=== PATIENT | male | born 1955 | race Caucasian/White ===

== ENCOUNTER 2018-01-19 08:00 | Outpatient (RCR) | payer MEDICARE, OTHER, SELFPAY | END 2018-02-18 | LOC: CR 01-25 08:00 | PROVIDERS: PCP Nurse Practitioner Family; Visit Provider Family Medicine | DX: I50.9 Heart failure, unspecified (principal); Z51.89 Encounter for other specified aftercare | CPT/HCPCS: 93797 ×2; 0296T; 36415; 74177; 93225; 82565; 93306; J3490; S9472 ==

== ENCOUNTER 2018-08-04 09:34 | Observation (INO) | payer MEDICARE, SELFPAY ==
[2018-08-04] VITALS (8 sets, daily range): BP systolic 102–130; BP diastolic 67–95; PULSE 87–106; RESP 16–18; TEMP 36.3–37.4; O2SAT 95–99
--- NOTE | 2018-08-04 10:08 | W.ED.GENAD ---
Discharge Plan Discharge Details Chief Complaint: Vascular Primary Care Provider: Pricila Geller ED Provider: Micky Glynn Home Meds and New Rx's Prescriptions: No Action losartan 50 MG tablet 50 mg PO QAM Qty: 90 RF: 3 torsemide [Demadex] 20 MG tablet 30 mg PO DAILY Qty: 120 RF: 3 spironolactone 25 MG tablet 25 mg PO DAILY Qty: 90 RF: 3 potassium chloride [Klor-Con M10] 10 MEQ tablet,ER particles/crystals 10 meq PO DAILY Qty: 90 RF: 3 warfarin [Coumadin] 7.5 MG tablet 7.5 mg PO QPM RF: 0 aspirin [Aspirin Low-Strength] 81 MG tablet,chewable 81 mg PO DAILY RF: 0 metoprolol tartrate 25 MG tablet 75 mg PO HS RF: 0 metoprolol succinate 50 MG tablet extended release 24 hr 175 mg PO DAILY AM RF: 0 Medical Decision Making MDM Narrative Medical decision making narrative: 63-year-old male presents from home complaining of right medial thigh pain and discomfort similar to previous hematoma. He is afebrile and well-appearing. He does have ecchymosis that he did not notice overlying the right medial thigh. He is at risk for supratherapeutic INR and spontaneous bleeding including within the retroperitoneum. He had IV access established, was referred for laboratory testing with INR. Patient had CT imaging performed through the lower abdomen and proximal thigh. Diagnostic studies reveal unremarkable CBC with white count 4 and hematocrit 40. PT of 2.7. Patient's BUN is 24 creatinine 1.5. Imaging studies reveal a right psoas hematoma. It is noted patient recently had an INR 3.8, 2.7 today. He has had a history of previous femoral hematoma with compression and femoral nerve injury. His current psoas hematoma does not appear to have active bleeding or blush on contrast infused this, he would be at risk for compressive symptoms along the iliacus. I did discuss the case with Dr. Regalado, on-call for general surgery, she agrees with admission, observation, serial hematocrits. Given that there is no active bleeding, no indication for intervention at this time ECG Data Attestation: I personally reviewed and interpreted this ECG (s) as follows: Interpretation: Normal sinus rhythm, rate of 90, left bundle branch block pattern with repolarization abnormalities that are discordant with QRS HPI - General Adult General Mode of arrival: ambulatory. Date/Time Provider Initiated Documentation: 08/04/18 09:52. Limitations to Documentation: no limitations. Information obtained by: patient. History of Present Illness 63 year old M presents to the emergency department with the chief complaint of R thigh pain, described as moderate, Quality is described as constant, and is localized to the right. Patient extremity and abdomen. Patient started experiencing this hour(s) and it has been constant. No relieving factors improve symptom(s), No exacerbating factors reported . Patient notes no other symptoms.. HPI Narrative: This is a 63-year-old male with a history of atrial fibrillation and congestive heart failure who is on warfarin. He states that he has had a deep thigh hematoma in the past with elevated INR levels. He states he now has the gradual onset last night of dull, achy, right proximal thigh pain similar to previous hematoma. He denies any trauma. Has not had any weakness. He denies any nausea or vomiting Related Data Home Medications Medication Instructions Recorded Confirmed aspirin [Aspirin Low-Strength] 81 mg PO DAILY 09/22/17 04/22/18 warfarin [Coumadin] 7.5 mg PO QPM 09/22/17 04/22/18 metoprolol succinate 175 mg PO DAILY AM 11/30/17 04/22/18 metoprolol tartrate 75 mg PO HS 11/30/17 04/22/18 Previous Rx's Medication Instructions Recorded losartan 50 mg PO QAM #90 tab 01/11/18 potassium chloride [Klor-Con M10] 10 meq PO DAILY #90 tab 01/11/18 spironolactone 25 mg PO DAILY #90 tab 01/11/18 torsemide [Demadex] 30 mg PO DAILY #120 tab 01/11/18 Allergies Allergy/AdvReac Type Severity Reaction Status Date / Time No Known Allergies Allergy Unverified 04/22/18 11:57 General Stated Complaint: Vascular SELVIN: 3 Review of Systems Review of Systems 7 systems reviewed and otherwise negative [facility] Social History Smoking/Tobacco Use Status: Never Exam Narrative Exam Narrative: GEN: awake, alert, oriented 3. Pleasant, well groomed, interactive. HEAD: Normocephalic, atraumatic ENT: Mucous membranes moist, oropharynx unremarkable, External ear exam unremarkable EYES: PERRL, EOMI NECK: Full ROM, no KIMBER, no menigismus CHEST/RESP: Nontender, clear to auscultation bilateral, no wheeze/rhonchi/rales CARDIOVASCULAR: RRR, no murmur, rub trena. 2+ Rad pulse bilateral ABDOMEN: Soft, nontender, no mass. +Bowel sounds EXT: Full ROM, no edema, no rash. There is right proximal medial thigh ecchymosis measuring approximately 4 x 5 cm, no mass appreciated. Palpable femoral pulse bilaterally Neuro: Grossly normal neurologic exam, conversant, interactive. Psych: Speech fluent, thoughts congruent, affect normal Course Vital Signs Temperature 36.9 C 08/04/18 09:42 Pulse 94 H 08/04/18 09:42 Respiratory Rate 16 08/04/18 09:42 Blood Pressure 126/86 08/04/18 09:42 Pulse Oximetry 99 08/04/18 09:42 Temperature 36.9 C 08/04/18 09:42 Pulse 94 H 08/04/18 09:42 Respiratory Rate 16 08/04/18 09:55 Blood Pressure 126/86 08/04/18 09:42 Pulse Oximetry 99 08/04/18 09:42
[2018-08-04] MEDS: Normal Saline Flush 10 ML SYR IVP (10:10)
[2018-08-04] MEDS: Normal Saline 1,000 ML 125 ML IV (10:10)
--- NOTE | 2018-08-04 10:14 | ED.GENADUL_ITS ---
Discharge Plan Discharge Details Chief Complaint: Vascular Primary Care Provider: Pricila Geller ED Provider: Micky Glynn Home Meds and New Rx's Prescriptions: No Action losartan 50 MG tablet 50 mg PO QAM Qty: 90 RF: 3 torsemide [Demadex] 20 MG tablet 30 mg PO DAILY Qty: 120 RF: 3 spironolactone 25 MG tablet 25 mg PO DAILY Qty: 90 RF: 3 potassium chloride [Klor-Con M10] 10 MEQ tablet,ER particles/crystals 10 meq PO DAILY Qty: 90 RF: 3 warfarin [Coumadin] 7.5 MG tablet 7.5 mg PO QPM RF: 0 aspirin [Aspirin Low-Strength] 81 MG tablet,chewable 81 mg PO DAILY RF: 0 metoprolol tartrate 25 MG tablet 75 mg PO HS RF: 0 metoprolol succinate 50 MG tablet extended release 24 hr 175 mg PO DAILY AM RF: 0 Medical Decision Making MDM Narrative Medical decision making narrative: 63-year-old male presents from home complaining of right medial thigh pain and discomfort similar to previous hematoma. He is afebrile and well-appearing. He does have ecchymosis that he did not notice overlying the right medial thigh. He is at risk for supratherapeutic INR and spontaneous bleeding including within the retroperitoneum. He had IV access established, was referred for laboratory testing with INR. Patient had CT imaging performed through the lower abdomen and proximal thigh. Diagnostic studies reveal unremarkable CBC with white count 4 and hematocrit 40. PT of 2.7. Patient's BUN is 24 creatinine 1.5. Imaging studies reveal a right psoas hematoma. It is noted patient recently had an INR 3.8, 2.7 today. He has had a history of previous femoral hematoma with compression and femoral nerve injury. His current psoas hematoma does not appear to have active bleeding or blush on contrast infused this, he would be at risk for compressive symptoms along the iliacus. I did discuss the case with Dr. Regalado, on-call for general surgery, she agrees with admission, observation, serial hematocrits. Given that there is no active bleeding, no indication for intervention at this time ECG Data Attestation: I personally reviewed and interpreted this ECG (s) as follows: Interpretation: Normal sinus rhythm, rate of 90, left bundle branch block pattern with repolarization abnormalities that are discordant with QRS HPI - General Adult General Mode of arrival: ambulatory . Date/Time Provider Initiated Documentation: 08/04/18 09:52 . Limitations to Documentation: no limitations . Information obtained by: patient . History of Present Illness 63 year old M presents to the emergency department with the chief complaint of R thigh pain, described as moderate, Quality is described as constant, and is localized to the right. Patient extremity and abdomen. Patient started experiencing this hour(s) and it has been constant. No relieving factors improve symptom(s), No exacerbating factors reported . Patient notes no other symptoms.. HPI Narrative: This is a 63-year-old male with a history of atrial fibrillation and congestive heart failure who is on warfarin. He states that he has had a deep thigh hematoma in the past with elevated INR levels. He states he now has the gradual onset last night of dull, achy, right proximal thigh pain similar to previous hematoma. He denies any trauma. Has not had any weakness. He denies any nausea or vomiting Related Data Home Medications Medication Instructions Recorded Confirmed aspirin [Aspirin Low-Strength] 81 mg PO DAILY 09/22/17 04/22/18 warfarin [Coumadin] 7.5 mg PO QPM 09/22/17 04/22/18 metoprolol succinate 175 mg PO DAILY AM 11/30/17 04/22/18 metoprolol tartrate 75 mg PO HS 11/30/17 04/22/18 Previous Rx's Medication Instructions Recorded losartan 50 mg PO QAM #90 tab 01/11/18 potassium chloride [Klor-Con M10] 10 meq PO DAILY #90 tab 01/11/18 spironolactone 25 mg PO DAILY #90 tab 01/11/18 torsemide [Demadex] 30 mg PO DAILY #120 tab 01/11/18 Allergies Allergy/AdvReac Type Severity Reaction Status Date / Time No Known Allergies Allergy Unverified 04/22/18 11:57 General Stated Complaint: Vascular SELVIN: 3 Review of Systems Review of Systems 7 systems reviewed and otherwise negative [facility] Social History Smoking/Tobacco Use Status: Never Exam Narrative Exam Narrative: GEN: awake, alert, oriented 3. Pleasant, well groomed, interactive. HEAD: Normocephalic, atraumatic ENT: Mucous membranes moist, oropharynx unremarkable, External ear exam unremarkable EYES: PERRL, EOMI NECK: Full ROM, no KIMBER, no menigismus CHEST/RESP: Nontender, clear to auscultation bilateral, no wheeze/rhonchi/rales CARDIOVASCULAR: RRR, no murmur, rub trena. 2+ Rad pulse bilateral ABDOMEN: Soft, nontender, no mass. +Bowel sounds EXT: Full ROM, no edema, no rash. There is right proximal medial thigh ecchymosis measuring approximately 4 x 5 cm, no mass appreciated. Palpable femoral pulse bilaterally Neuro: Grossly normal neurologic exam, conversant, interactive. Psych: Speech fluent, thoughts congruent, affect normal Course Vital Signs Temperature 36.9 C 08/04/18 09:42 Pulse 94 H 08/04/18 09:42 Respiratory Rate 16 08/04/18 09:42 Blood Pressure 126/86 08/04/18 09:42 Pulse Oximetry 99 08/04/18 09:42 Temperature 36.9 C 08/04/18 09:42 Pulse 94 H 08/04/18 09:42 Respiratory Rate 16 08/04/18 09:55 Blood Pressure 126/86 08/04/18 09:42 Pulse Oximetry 99 08/04/18 09:42
[2018-08-04 10:21] LABS: Abs Immature Grans 0.01 k/cumm (0.0-0.09); Absolute Basophil Count 0.03 k/cumm (0.0-0.2); Absolute Eosinophil Count 0.04 k/cumm (0.0-0.7); Absolute Lymphocyte Count 0.53 k/cumm (1.2-3.4); Absolute Monocyte Count 0.38 k/cumm (0.11-0.7); Absolute Neutrophil Count 3.77 k/cumm (1.2-6.7); Basophils % 0.6; Eosinophils % 0.8; HCT 40.5 % (40.0-50.0); HGB 13.5 g/dL (13.5-17.5); Immature Grans % 0.2; Lymphocytes % 11.1; Mean Corp. HGB Concentration 33.3 g/dL (32.0-36.0); Mean Corpuscular Hemoglobin 31.2 pg (27.0-33.0); Mean Corpuscular Volume 93.5 fL (80-95); Mean Platelet Volume 10.3 fL (8.0-11.0); Neutrophils % 79.3; Platelet Count 154 x1000/uL (130-400); RBC 4.33 m/cumm (4.50-6.00); RBC Distribution Width 13.5 % (11.8-14.1); White Blood Cell Count 4.76 k/cumm (4.4-10.8)
[2018-08-04 10:41] LABS: ALT 46 U/L (12-78); AST 30 U/L (15-37); Albumin 3.5 g/dL (3.4-5.0); Alkaline Phosphatase 49 U/L (46-116); Anion Gap 7.5 mmol/L (3-11); BUN 24 mg/dL (7-18); Bilirubin, Total 0.7 mg/dL (0.2-1.0); CO2 28.5 mmol/L (21.0-32.0); CREATININE 1.45 mg/dL (0.70-1.30); Calcium 8.5 mg/dL (8.5-10.1); Chloride 103 mmol/L (98-107); Estimated GFR 48.84 (mL/min/1.73m2); Glucose 130 mg/dL (70-100); Potassium 4.2 mmol/L (3.5-5.1); Sodium 139 mmol/L (136-145); Total Protein 7.6 g/dL (6.4-8.2)
[2018-08-04 11:22] LABS: INR 2.7 (1.0-3.5); Prothrombin Time 25.6 sec (9.3-10.8)
--- NOTE | 2018-08-04 12:09 | DI.CT_ITS ---
SYMPTOMS/DIAGNOSIS: RT GROIN AND RT THIGH PAIN SIMILAR TO PREVIOUS HEMATOMA, ON WARFARIN CT OF THE ABDOMEN AND PELVIS AND UPPER THIGHS: Comparison is made with [id number]. Images were performed from the lung bases through the distal thighs after IV contrast. There is enlargement of the distal right psoas muscle consistent with a hematoma. There is a right hip prosthesis which creates artifact. N acetabular screws extends anteriorly through the cortex, projecting into the right psoas muscle. This appears unchanged from the prior exam. No hematoma is seen extending into the thigh. There is underlying asymmetry of the psoas muscles as seen on the previous exam which is likely secondary to scoliosis and degenerative changes. Marked left atrial enlargement and valve prostheses as well as ventricular enlargement are again noted. The lung bases show scarring. The liver, gallbladder, spleen, pancreas and adrenals are unremarkable. Renal cysts are noted. There is no hydronephrosis. There is a nonobstructing stone at the lower pole of the left kidney. The prostate is mildly enlarged. The bladder is unremarkable. There is mild diverticulosis but no evidence of diverticulitis. There is increased stool in the cecum. IMPRESSION: Right psoas hematoma. No extension into the upper thigh. No evidence of active bleeding.
[2018-08-04] MEDS: Omnipaque 350 MG/ML 100 ML BTL IJ (12:11)
--- NOTE | 2018-08-04 16:38 | W.PM.HP.N ---
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 He has had a hematoma of the right thigh in the past and felt similar pain at that time. He recalls that his INR was high last week at 3.8. He reports that it is difficult to ambulate due to right thigh pain. He denies any other concerns. No chest pain/pressure, palpitations, SOB, cough, wheeze, no abdominal pain, nausea, vomiting, no peripheral edema. He does have a history of a CVA (09/08/17) with mild residual weakness to his left hand. In the emergency department his workup included unremarkable CBC with white count 4 and hematocrit 40. PT of 2.7. Patient's BUN is 24 creatinine 1.5. Imaging studies reveal a right psoas hematoma. He does not appear to have active bleeding on CT scan. ED attending discussed case with Dr. Regalado, general surgery, she agrees with admission, observation, serial hematocrits. Given that there is no active bleeding, no indication for intervention at this time. He is admitted to the med/surg floor for observation and management. Review of Systems Review of Systems [facility] Social History Smoking/Tobacco Use Status: Never Meds Home Medications Medication Instructions Recorded Confirmed Type metoprolol succinate 175 mg PO DAILY AM 11/30/17 08/04/18 History metoprolol tartrate 75 mg PO HS 11/30/17 08/04/18 History Allergies Allergy/AdvReac Type Severity Reaction Status Date / Time No Known Allergies Allergy Unverified 08/04/18 12:44 Exam Const General: Orientation: [facility] Head: Eyes Conjunctivae: Sclera: Pupils: Neck Neck: Resp Effort & Inspection: Auscultation: GI Inspection: Palpation: Auscultation: Back/Spine/Pelvis Back: Extrem Right lower extremity: Results Labs : 08/05/18 06:50 08/05/18 06:50 Laboratory Results - last 24 hr 08/04/18 08/04/18 08/04/18 10:00 10:00 10:00 WBC 4.76 RBC 4.33 L Hgb 13.5 Hct 40.5 MCV 93.5 MCH 31.2 MCHC 33.3 RDW 13.5 Plt Count 154 MPV 10.3 Immature Gran % 0.2 Neutrophils % 79.3 Lymphocytes % 11.1 Monocytes % 8.0 Eosinophils % 0.8 Basophils % 0.6 Absolute Neutrophils 3.77 Absolute Lymphocytes 0.53 L Absolute Monocytes 0.38 Absolute Eosinophils 0.04 Absolute Basophils 0.03 PT 25.6 H INR 2.7 Sodium 139 Potassium 4.2 Chloride 103 Carbon Dioxide 28.5 Anion Gap 7.5 BUN 24 H Creatinine 1.45 H Estimated GFR/1.73 m2 48.84 Glucose 130 H Calcium 8.5 Total Bilirubin 0.7 AST 30 ALT 46 Alkaline Phosphatase 49 Total Protein 7.6 Albumin 3.5 Documented by User: Jason Escobedo MD 08/07/18 10:24 PFS Social History Smoking/Tobacco Use Status: Never Meds Home Medications Medication Instructions Recorded Confirmed Type metoprolol succinate 175 mg PO DAILY AM 11/30/17 08/04/18 History metoprolol tartrate 75 mg PO HS 11/30/17 08/04/18 History Allergies Allergy/AdvReac Type Severity Reaction Status Date / Time No Known Allergies Allergy Unverified 08/04/18 12:44 Results Labs : 08/05/18 06:50 08/05/18 06:50
--- NOTE | 2018-08-04 16:47 | HPE_ITS ---
Addendum entered and electronically signed by Priti Powell NP 08/04/18 17:42 : Past medical history: History of hematoma right thigh Mitral valve replacement, bovine Aortic valve replacement, porcine CHF CVA 08/2017 Atrial fibrillation Cardiac exam: HR irregular with murmurs noted across precordium. Family history: Mother: at 83, Hx COPD Father: at 84 of aneurysm, hypertension Brother: war with PTSD. 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 He has had a hematoma of the right thigh in the past and felt similar pain at that time. He recalls that his INR was high last week at 3.8. He reports that it is difficult to ambulate due to right thigh pain. He denies any other concerns. No chest pain/pressure, palpitations, SOB, cough, wheeze, no abdominal pain, nausea, vomiting, no peripheral edema. He does have a history of a CVA (09/08/17) with mild residual weakness to his left hand. In the emergency department his workup included unremarkable CBC with white count 4 and hematocrit 40. PT of 2.7. Patient's BUN is 24 creatinine 1.5. Imaging studies reveal a right psoas hematoma. He does not appear to have active bleeding on CT scan. ED attending discussed case with Dr. Regalado, general surgery, she agrees with admission, observation, serial hematocrits. Given that there is no active bleeding, no indication for intervention at this time. He is admitted to the med/surg floor for observation and management. Review of Systems Review of Systems [facility] Social History Smoking/Tobacco Use Status: Never Meds Home Medications Medication Instructions Recorded Confirmed Type metoprolol succinate 175 mg PO DAILY AM 11/30/17 08/04/18 History metoprolol tartrate 75 mg PO HS 11/30/17 08/04/18 History Allergies Allergy/AdvReac Type Severity Reaction Status Date / Time No Known Allergies Allergy Unverified 08/04/18 12:44 Exam Const General: Orientation: [facility] Head: Eyes Conjunctivae: Sclera: Pupils: Neck Neck: Resp Effort & Inspection: Auscultation: GI Inspection: Palpation: Auscultation: Back/Spine/Pelvis Back: Extrem Right lower extremity: Results Labs : 08/05/18 06:50 08/05/18 06:50 Laboratory Results - last 24 hr 08/04/18 08/04/18 08/04/18 10:00 10:00 10:00 WBC 4.76 RBC 4.33 L Hgb 13.5 Hct 40.5 MCV 93.5 MCH 31.2 MCHC 33.3 RDW 13.5 Plt Count 154 MPV 10.3 Immature Gran % 0.2 Neutrophils % 79.3 Lymphocytes % 11.1 Monocytes % 8.0 Eosinophils % 0.8 Basophils % 0.6 Absolute Neutrophils 3.77 Absolute Lymphocytes 0.53 L Absolute Monocytes 0.38 Absolute Eosinophils 0.04 Absolute Basophils 0.03 PT 25.6 H INR 2.7 Sodium 139 Potassium 4.2 Chloride 103 Carbon Dioxide 28.5 Anion Gap 7.5 BUN 24 H Creatinine 1.45 H Estimated GFR/1.73 m2 48.84 Glucose 130 H Calcium 8.5 Total Bilirubin 0.7 AST 30 ALT 46 Alkaline Phosphatase 49 Total Protein 7.6 Albumin 3.5 Documented by User: Jason Escobedo MD 08/07/18 10:24 [facility] Social History Smoking/Tobacco Use Status: Never Meds Home Medications Medication Instructions Recorded Confirmed Type metoprolol succinate 175 mg PO DAILY AM 11/30/17 08/04/18 History metoprolol tartrate 75 mg PO HS 11/30/17 08/04/18 History Allergies Allergy/AdvReac Type Severity Reaction Status Date / Time No Known Allergies Allergy Unverified 08/04/18 12:44 Results Labs : 08/05/18 06:50 08/05/18 06:50
[2018-08-04 18:25] LABS: HCT 39.9 % (40.0-50.0); HGB 13.2 g/dL (13.5-17.5)
[2018-08-04] MEDS: Metoprolol 25 MG TAB 75 MG PO (21:18)
[2018-08-04] MEDS: Acetaminophen 325 MG TAB PO (23:33)
[2018-08-05 00:08] VITALS: BP 150/91; PULSE 63; RESP 19; TEMP 36.5; O2SAT 98
[2018-08-05] MEDS: Metoprolol CR 50 MG TABCR 175 MG PO (05:47)
[2018-08-05] MEDS: Normal Saline Flush 10 ML SYR IVP (05:47)
[2018-08-05 07:20] VITALS: BP 149/79; PULSE 56; RESP 17; TEMP 36.3; O2SAT 98
--- NOTE | 2018-08-05 07:20 | PDOC.CMIN ---
Care Management Initial Assess REASON FOR HOSPITALIZATION:: PSOAS Hematoma PAST MEDICAL HISTORY/PAST SURGICAL HISTORY:: CVA in August of 2017 (presented to [facility] ED and was transferred to [facility] [place]), Atrial Fibrillation, hx of aortic valve replacement (bovine) in 2013, mitral valve replacement x2 (porcine) in 2010 and 2013, CHF, cardiomyopathy, hematoma right thigh, Mitral valve replacement, recovering alcoholic PREVIOUS FUNCTIONAL STATUS/SOCIAL/FAMILY SUPPORTS:: Cong resides in the town of [place]. 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 He now has a vehicle and reports being more independent. He reports doing well and feeling better connected to the community. 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 He in 1999, has three children; two daughters and one son; none of which he is close with. CURRENT FUNCTIONAL STATUS:: Cong was sitting on the side of his bed, open to speaking with this justowriter operator and pleasant in interaction. ADVANCE DIRECTIVES:: None on file at [facility]. Has patient been provided with information about the portal?: Yes Did the patient sign up for the portal?: No CODE STATUS:: Full Code INSURANCE COVERAGE / FINANCIAL ISSUES:: Medicare CURRENT HOME/COMMUNITY SERVICES/EQUIPMENT:: No current services or equipment utilized. PRIMARY CARE PHYSICIAN:: Pricila Geller POTENTIAL DISCHARGE NEEDS:: Follow up appointment with PCP. PATIENT/FAMILY EDUCATION NEEDS:: Review discharge instructions; discuss Ask Me Three. ANTICIPATED BARRIERS TO DISCHARGE:: None identified. TRANSPORTATION:: Via private vehicle. PLAN:: Cong will discharge home when ready per MD. He will follow up with his PCP and plan of care as prescribed. Cong will transport home via private vehicle with his friend, Hodan Mariano.
[2018-08-05 07:24] LABS: HGB 13.3 g/dL (13.5-17.5); Mean Corp. HGB Concentration 33.3 g/dL (32.0-36.0); Mean Corpuscular Hemoglobin 30.8 pg (27.0-33.0); Mean Corpuscular Volume 92.6 fL (80-95); Mean Platelet Volume 10.8 fL (8.0-11.0); Platelet Count 147 x1000/uL (130-400); RBC 4.32 m/cumm (4.50-6.00); RBC Distribution Width 13.4 % (11.8-14.1)
[2018-08-05 07:26] LABS: INR 1.8 (1.0-3.5); Prothrombin Time 17.3 sec (9.3-10.8)
[2018-08-05 07:28] LABS: BUN 27 mg/dL (7-18); CREATININE 1.47 mg/dL (0.70-1.30); Calcium 8.8 mg/dL (8.5-10.1); Chloride 104 mmol/L (98-107); Estimated GFR 48.08 (mL/min/1.73m2); Glucose 117 mg/dL (70-100); Potassium 3.9 mmol/L (3.5-5.1); Sodium 140 mmol/L (136-145)
--- NOTE | 2018-08-05 07:32 | INITIAL_ITS ---
Care Management Initial Assess REASON FOR HOSPITALIZATION:: PSOAS Hematoma PAST MEDICAL HISTORY/PAST SURGICAL HISTORY:: CVA in August of 2017 (presented to [facility] ED and was transferred to [facility]), Atrial Fibrillation, hx of aortic valve replacement (bovine) in 2013, mitral valve replacement x2 (porcine) in 2010 and 2013, CHF, cardiomyopathy, hematoma right thigh, Mitral valve replacement, recovering alcoholic PREVIOUS FUNCTIONAL STATUS/SOCIAL/FAMILY SUPPORTS:: Cong resides in the town of [place]. 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 He now has a vehicle and reports being more independent. He reports doing well and feeling better connected to the community. 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 He is also a life long alcoholic that has been sober for two years and is now attending AA meetings in [facility] and [place]. He in 1999, has three children; two daughters and one son; none of which he is close with. CURRENT FUNCTIONAL STATUS:: Cong was sitting on the side of his bed, open to speaking with this fiction writer and pleasant in interaction. ADVANCE DIRECTIVES:: None on file at [facility]. Has patient been provided with information about the portal?: Yes Did the patient sign up for the portal?: No CODE STATUS:: Full Code INSURANCE COVERAGE / FINANCIAL ISSUES:: Medicare CURRENT HOME/COMMUNITY SERVICES/EQUIPMENT:: No current services or equipment utilized. PRIMARY CARE PHYSICIAN:: Pricila Geller POTENTIAL DISCHARGE NEEDS:: Follow up appointment with PCP. PATIENT/FAMILY EDUCATION NEEDS:: Review discharge instructions; discuss Ask Me Three. ANTICIPATED BARRIERS TO DISCHARGE:: None identified. TRANSPORTATION:: Via private vehicle. PLAN:: Cong will discharge home when ready per MD. He will follow up with his PCP and plan of care as prescribed. Cong will transport home via private vehicle with his friend, Hodan Mariano.
[2018-08-05] MEDS: Losartan 50 MG TAB PO (08:14)
[2018-08-05] MEDS: Spironolactone 25 MG TAB PO (08:14)
[2018-08-05] MEDS: Potassium Chloride 10 MEQ TABCR PO (08:14)
[2018-08-05] MEDS: Torsemide 20 MG TAB 30 MG PO (08:15)
--- NOTE | 2018-08-05 10:42 | PT.INIE ---
Date of service: 08/05/18 Time of Service: 10:42 PT Notes Date: 08/05/[address]. Houston PT orders: Evaluate and treat thigh pain and decreased ambulatory ability Precautions: Falls Patient profile/admitting diagnosis: 63-year-old male who developed insidious onset of anterior thigh and hip discomfort while stacking wood afternoon. His symptoms increased and his neighbor dropped off some crutches. Next day his symptoms persisted and he was seen in the ER. CT imaging showed a right psoas hematoma. His pain is diminished significantly since admission. Medical history: A. fib, CHF, status post right CVA with mild left upper extremity weakness August 2017, status post right total hip replacement numerous years ago, valve replacement 2013, a right psoas hematoma with resultant femoral neuropathy 2-3 years ago, recovering alcoholic Social history/Home situation: Single, has his own home. One-step entering the home, in his bedroom and bathroom the first floor. He has no adaptive equipment in his bathroom, and feels that this is unnecessary currently. Equipment owned: Cane and borrowed crutches Subjective: Complains of intermittent discomfort throughout the anterior aspect the right hip migrating to the anterior thigh. Generally occurs with weightbearing and change positions. Objective: General observation: Pleasant, no abnormal pain behavior noted Mental status: Alert and oriented ?3 Pain: Minimal resting pain. Increases to a 4 out of 10 with weightbearing and activity Range of motion active right shoulder is limited to approximately 105? with excessive scapular substitution, with some mild end range discomfort. His external rotation on the left is at 45-60?, and on the right 10-15?. Elbow elbow, forearm, wrist, and digit movements are non-irritable with good functional range. His active assistive hip, knee, talocrural movements are full and painless other than right hip extension which causes drying throughout the anterior aspect of the right hip. Lumbar movements in the standing position flexion, fingertips to floor approximately 3-4 inches within range drying throughout the hamstrings. Side bending is nonpainful. Extension though is limited to 0? with his right hip and knee extended, increases to 20-30? if he flexes his right hip. No no complaints of back discomfort with these movements. Posture: In standing position he is mj-flexed with his right hip and knee flexed approximately 15?; Weight shifted more on the left than on the right. Negative lateral shift. Neuro: Right KJ 0, left KJ +2: AJ s are +2 and symmetrical. Sensation is diminished to light touch along the anterior medial aspect of the distal right femur and proximal right tibia. Has full motor control throughout the lower extremities with his right iliopsoas at 3/5, quadriceps at +4/5. He has significant right quad atrophy compared to the left. Circumference measurements were not taken. Palpation: Has tenderness to palpation throughout the right iliopsoas area compared to the left. Nontender throughout the quadriceps mechanism. No significant ecchymotic lesions noted Bed mobility/transfers: Independent with assuming the supine to sitting to standing positions with the use of his right upper extremity to assist his right lower leg with the transfers. 8: Ambulates independently without an assistive device but has moderate antalgia. His gait is characterized by poor right hip and knee extension from mid stance to toe off, as well as an anterior flex trunk. He is able to walk on his heels and toes without weakness. Balance: His static and dynamic sitting and standing balance are good Special test: Has pain when attempting to perform straight leg raise in the supine position, but able to do so with approximately 15-20? extension lag. Mobility limitations Raw score: 24 Standardized score: 61.44 CMS score: 0 CMS modifier: CH Informed consent/education: Patient was instructed in purpose of PT consult and plan of care Assessment: Patient is a 63-year-old male referred to physical therapy services with diagnosis of a right psoas hematoma. Patient presents with clinical signs and symptoms consistent with this diagnosis as demonstrated by the following impairment level findings of localized tenderness throughout the right psoas, pain when attempting to actively lift his right lower extremity, and an antalgic gait. These impairments are contributing the following functional limitations of requiring assistive device with weightbearing activities. Patient is assessed as a low 75757 complexity based on the following: History: Right psaos hematoma Examination: Pain and weakness with weightbearing activities Presentation: Evolving Decision making: Low Goals: Independent ambulation with a cane to minimize fall risk Plan of care/treatment plan: Today's session consisted of the evaluation, and instructed in proper gait mechanics with use of a cane, weightbearing as tolerated right lower extremity. Also instructed in quad sets, and antigravity knee right extension exercises in the sitting position. Discharge recommendations: Return home Human time 45 minutes G codes 8978 CH 8979 CH 8980 CH Disclaimer: This note was created using [employer] voice recognition software. It was reviewed for major content. However, there may be multiple small discrepancies and errors due to the voice recognition aspects of the software.
--- NOTE | 2018-08-05 10:53 | PHARADMIT ---
Admission Pharmacy Clinical Review PSOAS hematoma Code Status DNR/DNI Current Weight 74.843 kg Renally Cleared and Narrow Therapeutic Index Meds Crcl ~50.00 mL/min current meds okay QTc Value / Action Taken BP Control, Fever BP 149/79 afebrile Electrolytes reviewed within normal limits DVT Prophylaxis none Opiate Usage / Scheduled Bowel Regimen Ordered no/prn Plt/SCr for Heparin / Enoxaparin plt 147 SCr 1.47 INR for Warfarin INR 1.8 H/H stable, WBC/Bands h/h 13.3/40.0 wbc 4.70 Antibiotic appropriateness n/a Cultures and Sensitivities n/a Surgical ABX d/c within 24 hr n/a DM control / Insulin Dosing bg 117 none Heart Failure (Check EF%) (SHARA's, B-Block, Diuretics) losartan, metoprolol x2, spironolactone, torsemide IV to PO Switch n/a Home Meds Reviewed some duplicate meds on home med list (same med listed more than once) -potassium may increase the hyperkalemic effect of spironolactone Home Meds Not Ordered warfarin(currently on hold) Comments
[2018-08-05 11:06] VITALS: BP 112/65; PULSE 61; RESP 18; TEMP 36.7; O2SAT 99
--- NOTE | 2018-08-05 11:29 | DSE_ITS ---
DS: Diagnosis Discharge Diagnosis (1) Psoas hematoma, right, secondary to anticoagulant therapy: Status: Acute (2) CHF (congestive heart failure): Status: Chronic Discharge Plan Disposition Patient Disposition: HOME Condition: Good Discharge Details Reason For Visit: PSOAS HEMATOMA Admit Date/Time: 08/04/18 13:16 Admit Provider: Jason Escobedo Attending Provider: Jason Escobedo Primary Care Provider[facility] Course Hospital Course: This is a 63-year-old male patient with a past medical history significant for atrial fibrillation on chronic anticoagulation, CVA and valvular heart disease who presented to the emergency department for right thigh pain. He has had a similar history in the past with a psoas muscle hematoma due to a supratherapeutic INR. Workup in the emergency department does demonstrate a psoas muscle hematoma with no evidence of active bleeding. His Coumadin and aspirin were placed on hold and he was admitted to the medical surgical unit under observation status a hemoglobin and hematocrit this morning demonstrate a stable pattern, and his INR is 1.8. He has had improvement in his pain overnight and is able to ambulate more easily today. He states his INR was again supratherapeutic last week at 3.8 due to dietary changes while he was on vacation. His vital signs have been stable he is voicing no other complaints. He feels he is ready for discharge to home. He will be advised to hold his aspirin but to resume his Coumadin at a dose of 5 mg daily he should have his INR and CBC checked on Tuesday, August 07. And should call his primary care provider first thing Tuesday morning for a follow-up appointment and additional medication adjustments and dosing. Home Meds and New Rx's Prescriptions: Changed warfarin [Coumadin] 7.5 MG tablet 5 mg PO QAM Qty: 0 RF: 0 Discontinued aspirin [Aspirin Low-Strength] 81 MG tablet,chewable 81 mg PO DAILY RF: 0 No Action losartan 50 MG tablet 50 mg PO QAM Qty: 90 RF: 3 torsemide [Demadex] 20 MG tablet 30 mg PO DAILY Qty: 120 RF: 3 spironolactone 25 MG tablet 25 mg PO DAILY Qty: 90 RF: 3 metoprolol tartrate 25 MG tablet 75 mg PO HS RF: 0 metoprolol succinate 50 MG tablet extended release 24 hr 175 mg PO DAILY AM RF: 0 Discharge Instructions Instructions: Safe Use of Anticoagulants (DC) Additional Instructions: Please continue to hold her aspirin until directed by her primary care provider. you can resume your Coumadin at a lower dose of 5 mg daily to maintain an INR of 1.8-2 or otherwise directed by your primary care provider. Please have your INR and CBC drawn on Tuesday, August 07, 2018 Call your primary care provider's office first thing Tuesday morning for a follow -up appointment. Return to the emergency department immediately for new or worsening symptoms Stand Alone Forms: Nursing Discharge Form Referrals: Pricila Geller [Primary Care Provider] - (Please call [facility] PCP office on Tuesday to schedule a follow up appointment within one or two weeks. [phone]) Activity:: Activity as Tolerated Equipment/Supplies:: No Equipment Needed Diet:: resume usual diet Discharge Orders Discharge Orders: Discharge Order (Routine); Ordered 08/05/18 Ordered By: Jodee Damon Discharge Data Discharge Date/Time-TO BE ENTERED AT DEPARTURE: 08/05/18 13:57 Exam Const General: cooperative, healthy appearing, comfortable and no acute distress Nutritional Appearance: average body habitus Orientation: alert, awake and oriented x3 HENMT Head: normal to inspection Resp Effort & Inspection: normal respiratory effort Auscultation: clear to auscultation bilaterally Cardio Rate: regular rate Rhythm: abnormal rhythm Heart Sounds: murmur GI Inspection: normal to inspection Palpation: soft Skin General skin exam: no rashes or lesions noted Extrem General: normal to inspection and full ROM DS: Data Vitals/I&O Vitals and I&O: Vital Signs Temp 36.3 C L 08/05/18 07:20 Pulse 56 L 08/05/18 07:20 Resp 17 08/05/18 07:20 BP 149/79 H 08/05/18 07:20 Pulse Ox 98 08/05/18 07:20 Intake & Output 08/04/18 08/04/18 08/05/18 11:59 23:59 11:59 Intake Total 1686.25 / 1686.25 740 / 740 Output Total 750 / 750 1225 / 1225 Balance -750 / -750 461.25 / 461.25 740 / 740 Weight 74.843 kg 74.843 kg Intake: IV 856.25 / 856.25 Oral 830 / 830 740 / 740 Output: Urine 750 / 750 1225 / 1225 Other: Urine Color Yellow Urine Appearance Clear Comment Void x1 in the toilet. Stool Size Small Stool Characteristics Soft Formed Brown Voiding Methods Urinal Toilet Labs on day of discharge: Labs from last 24 hours 08/05/18 08/05/18 08/05/18 06:50 06:50 06:50 WBC 4.70 RBC 4.32 L Hgb 13.3 L Hct 40.0 MCV 92.6 MCH 30.8 MCHC 33.3 RDW 13.4 Plt Count 147 MPV 10.8 PT 17.3 H D INR 1.8 D Sodium 140 Potassium 3.9 Chloride 104 Carbon Dioxide 28.0 Anion Gap 8.0 BUN 27 H Creatinine 1.47 H Estimated GFR/1.73 m2 48.08 Glucose 117 H Calcium 8.8 08/04/18 18:07 WBC RBC Hgb 13.2 L Hct 39.9 L MCV MCH MCHC RDW Plt Count MPV PT INR Sodium Potassium Chloride Carbon Dioxide Anion Gap BUN Creatinine Estimated GFR/1.73 m2 Glucose Calcium
--- NOTE | 2018-08-07 07:45 | PT.INDS ---
Date of service: 08/07/18 Time of Service: 07:45 PT Notes Inpatient Physical Therapy Discharge Summary Date: 08/07/18 Dates of Service: 08/05/18 Pt was seen for PT Eval only then discharged. (see eval for functional mobility). Pt did not meet therapy goal due to dishcarge. G Codes in the area mobility of walking and moving around; projected status GP [id number]. Discharge status (if discharging) GP [id number] Keysha Day PT.
--- NOTE | 2018-08-07 07:48 | INDS_ITS ---
Date of service: 08/07/18 Time of Service: 07:45 PT Notes Inpatient Physical Therapy Discharge Summary Date: 08/07/18 Dates of Service: 08/05/18 Pt was seen for PT Eval only then discharged. (see eval for functional mobility) . Pt did not meet therapy goal due to dishcarge. G Codes in the area mobility of walking and moving around; projected status GP [id number]. Discharge status (if discharging) GP [id number] Keysha Day PT.
== END 2018-08-05 13:57 | disposition home or self-care (01) ==
LOC: MS 08-05 11:28 → ER 08-07 16:59 → MS 08-15 14:37
PROVIDERS: Nurse Practitioner; Admitting Provider Family Medicine; Emergency Provider Emergency Medicine; PCP Nurse Practitioner Family; Visit Provider Internal Medicine
DX: D68.32 Hemorrhagic disorder due to extrinsic circulating anticoagulants (principal); M79.81 Nontraumatic hematoma of soft tissue; T45.515A Adverse effect of anticoagulants, initial encounter; I50.9 Heart failure, unspecified; I48.91 Unspecified atrial fibrillation; Z79.01 Long term (current) use of anticoagulants; Z79.82 Long term (current) use of aspirin; I69.354 Hemiplegia and hemiparesis following cerebral infarction affecting left non-dominant side
CPT/HCPCS: 36415; 80048; 80053; 85027; 93005; 96360; 96361; 97161; 99217; 99222; 99285; 73701; 74177; 85014; 85018; 85025; 85610; 93010; 99219; 99284; G0378; G8978; J3490

== ENCOUNTER 2018-08-10 08:03 | Outpatient (CLI) | payer MEDICARE, OTHER, SELFPAY ==
[2018-08-10 08:48] LABS: HCT 38.3 % (40.0-50.0); HGB 12.5 g/dL (13.5-17.5); Mean Corp. HGB Concentration 32.6 g/dL (32.0-36.0); Mean Corpuscular Hemoglobin 30.9 pg (27.0-33.0); Mean Corpuscular Volume 94.8 fL (80-95); Mean Platelet Volume 10.3 fL (8.0-11.0); Platelet Count 190 x1000/uL (130-400); RBC 4.04 m/cumm (4.50-6.00); RBC Distribution Width 13.2 % (11.8-14.1); White Blood Cell Count 3.18 k/cumm (4.4-10.8)
[2018-08-10 08:58] LABS: INR 1.7 (1.0-3.5); Prothrombin Time 16.1 sec (9.3-10.8)
== END 2018-08-10 08:23 ==
PROVIDERS: PCP Nurse Practitioner Family; Visit Provider Nurse Practitioner Acute Care
DX: I48.91 Unspecified atrial fibrillation (principal); Z79.01 Long term (current) use of anticoagulants
CPT/HCPCS: 36415; 85027; 85610

== ENCOUNTER 2018-12-21 12:39 | Outpatient (REF) | payer MEDICARE, OTHER, SELFPAY ==
[2018-12-21 13:13] LABS: HCT 39.4 % (40.0-50.0); HGB 13.2 g/dL (13.5-17.5); Mean Corp. HGB Concentration 33.5 g/dL (32.0-36.0); Mean Corpuscular Hemoglobin 31.7 pg (27.0-33.0); Mean Corpuscular Volume 94.7 fL (80-95); Mean Platelet Volume 10.8 fL (8.0-11.0); Platelet Count 185 x1000/uL (130-400); RBC 4.16 m/cumm (4.50-6.00); RBC Distribution Width 13.4 % (11.8-14.1); White Blood Cell Count 3.55 k/cumm (4.4-10.8)
[2018-12-21 13:37] LABS: Anion Gap 10.1 mmol/L (3-11); BUN 23 mg/dL (7-18); CO2 25.9 mmol/L (21.0-32.0); CREATININE 1.62 mg/dL (0.70-1.30); Calcium 9.3 mg/dL (8.5-10.1); Chloride 104 mmol/L (98-107); Estimated GFR 42.98 (mL/min/1.73m2); Glucose 97 mg/dL (70-100); Potassium 4.4 mmol/L (3.5-5.1); Sodium 140 mmol/L (136-145)
[2018-12-22 09:55] LABS: PSA, Screening 2.7 ng/ml (0-4.5)
[2018-12-22 09:56] LABS: Hepatitis C Ab w Rflx HCV PCR Reactive (NEGAT)
== END 2018-12-21 12:59 ==
LOC: NCHCN 12:39
PROVIDERS: PCP Nurse Practitioner Family; Visit Provider Nurse Practitioner Family
DX: I10 Essential (primary) hypertension (principal); Z12.5 Encounter for screening for malignant neoplasm of prostate; Z11.59 Encounter for screening for other viral diseases
CPT/HCPCS: 80048; 84153; 85027; 86803; 87522

== ENCOUNTER 2018-12-31 15:27 | Inpatient (IN) | payer MEDICARE, SELFPAY ==
[2018-12-31] VITALS (9 sets, daily range): BP systolic 127–178; BP diastolic 79–117; PULSE 70–91; RESP 16–24; TEMP 36.6–37.4; O2SAT 96–98
[2018-12-31] MEDS: Normal Saline 1,000 ML 150 ML IV ×2 (15:39→22:54)
--- NOTE | 2018-12-31 16:55 | DI.CT_ITS ---
SYMPTOM/DIAGNOSIS: RT GROIN SWELLING, 'FEELS LIKE HEMATOMA' CT SCAN PELVIS: CT scan of the pelvis was performed following the uneventful administration of intravenous contrast material. Comparison CT scan is 08/04/18. There is ectasia of the distal abdominal aorta to 2.8 cm. There is diffuse atherosclerosis present. There is ectasia of the right common iliac artery up to 1.3 cm with atherosclerotic disease present. There is ectasia of the left common iliac artery up to 1.4 cm with atherosclerotic disease present. The visualized femoral arteries are of normal caliber with mild atherosclerotic disease present. There is again seen an enlargement of the right psoas muscle. It measures 4.5 x 4.8 x 6.2 cm. This is similar compared to the prior examination. There has developed an area of decreased attenuation within the muscle with a fluid debris level. The findings are most suggestive of an evolving hematoma. The patient is again seen to be status post right total hip replacement which appears unremarkable. The visualized bowel in the pelvis appears grossly unremarkable as does the urinary bladder. There is an ovoid soft tissue density seen in the left inguinal canal distally likely reflecting the left testicle. IMPRESSION: 1. Evolving right iliopsoas hematoma measuring up to 6.2 cm in size. 2. No acute vascular abnormality.
--- NOTE | 2018-12-31 16:58 | ED.GENADUL_ITS ---
Discharge Plan Disposition Patient Disposition: [facility] INPATIENT Condition: Stable Discharge Details Clinical Impression: Hematoma of right iliopsoas muscle Reason For Visit: ILIOPSOAS HEMATOMA Admit Date/Time: 12/31/18 19:54 Admit Provider: Robert Samson Attending Provider: Robert Samson Primary Care Provider: Pricila Geller ED Provider: Micky Glynn Discharge Data Discharge Date/Time-TO BE ENTERED AT DEPARTURE: 12/31/18 23:00 Medical Decision Making 63-year-old male presents with complaint of right lower extremity groin discomfort similar to previous hematoma. His past medical history is notable for atrial fibrillation, CVA and valvular heart disease. He has had a similar history in the past with a psoas muscle hematoma due to a supratherapeutic INR He continues to be on warfarin. He denies any acute trauma. Arrives anxious and slightly hypertensive with an otherwise reassuring exam. As he is anticoagulated, he is a risk for spontaneous hematoma and is referred for laboratory testing and CT images. Hematocrit is 42. There is a 4.5 cm x 4.8 cm x 6.2 cm fluid collection which demonstrates a hematocrit fluid level in the right iliopsoas muscle. He has had successful treatment of his spontaneous hematoma in the past with bedrest and holding of antiplatelet and anticoagulation. Patient to be signed out to Dr. Mart pending final determination of bed availability. Lab Data Lab results reviewed: Yes I reviewed the patient's lab results. Laboratory Results - last 24 hr 12/31/18 12/31/18 12/31/18 17:15 17:15 17:15 WBC 6.93 RBC 4.41 L Hgb 14.1 Hct 42.1 MCV 95.5 H MCH 32.0 MCHC 33.5 RDW 13.1 Plt Count 186 MPV 10.6 Immature Gran % 0.1 Neutrophils % 74.7 Lymphocytes % 15.2 Monocytes % 9.1 Eosinophils % 0.6 Basophils % 0.3 Absolute Neutrophils 5.18 Absolute Lymphocytes 1.05 L Absolute Monocytes 0.63 Absolute Eosinophils 0.04 Absolute Basophils 0.02 PT 24.5 H INR 2.4 H Sodium 138 Potassium 4.9 Chloride 102 Carbon Dioxide 26.9 Anion Gap 9.1 BUN 39 H Creatinine 1.64 H Estimated GFR/1.73 m2 42.37 Glucose 107 H Calcium 9.3 Total Bilirubin 0.3 AST 31 ALT 38 Alkaline Phosphatase 42 L Total Protein 8.4 H Albumin 3.8 HPI General Mode of arrival: ambulatory . Date/Time Provider Initiated Documentation: 12/31/18 16:36 . Limitations to Documentation: no limitations . Information obtained by: patient . History of Present Illness 63 year old M presents to the emergency department with the chief complaint of Right groin swelling, concern for recurrent hematoma, described as mild, Quality is described as aching, and is localized to the right. Patient reports no radiation. Patient started experiencing this hour(s) and it has been constant. No relieving factors improve symptom(s), No exacerbating factors reported . Patient notes no other symptoms.. Related Data Home Medications Medication Instructions Recorded Confirmed metoprolol succinate 175 mg PO DAILY AM 11/30/17 12/31/18 metoprolol tartrate 75 mg PO HS 11/30/17 12/31/18 losartan 50 mg PO QAM #90 tab 01/11/18 12/31/18 spironolactone 25 mg PO DAILY #90 tab 01/11/18 12/31/18 torsemide [Demadex] 30 mg PO DAILY #120 tab 01/11/18 12/31/18 warfarin [Coumadin] 5 mg PO QAM #0 tab 08/05/18 12/31/18 aspirin [Aspir-81] 12/31/18 coenzyme Q10 [CoQ-10] 12/31/18 Previous Rx's Medication Instructions Recorded losartan 50 mg PO QAM #90 tab 01/11/18 spironolactone 25 mg PO DAILY #90 tab 01/11/18 torsemide [Demadex] 30 mg PO DAILY #120 tab 01/11/18 warfarin [Coumadin] 5 mg PO QAM #0 tab 08/05/18 Allergies Allergy/AdvReac Type Severity Reaction Status Date / Time No Known Allergies Allergy Unverified 08/04/18 12:44 General Stated Complaint: Vascular SELVIN: 3 Review of Systems Review of Systems 8 systems reviewed and otherwise - [facility] Medical History H/O mitral valve replacement (Acute) CHF (congestive heart failure) (Chronic) CVA (cerebral vascular accident) (Chronic) Cardiomyopathy (Acute) Atrial fibrillation (Chronic) Chronic hepatitis C virus infection (Chronic) Surgical History H/O aortic valve replacement (Acute) Social History number of children: 3 Smoking and Tabacco status: Never alcohol intake: former year quit: 2013 substance use type: does not use Exam Narrative Exam Narrative: GEN: awake, alert, oriented 3. Pleasant, well groomed, interactive. HEAD: Normocephalic, atraumatic ENT: Mucous membranes moist, oropharynx unremarkable, External ear exam unremarkable EYES: PERRL, EOMI NECK: Full ROM, no KIMBER, no menigismus CHEST/RESP: Nontender, clear to auscultation bilateral, no wheeze/rhonchi/rales CARDIOVASCULAR: Distant, regular, mechanical heart sounds. 2+ Rad pulse bilateral ABDOMEN: Soft, nontender, no mass. +Bowel sounds. Right inguinal with 2+ palpable pulse, no significant swelling appreciated EXT: Full ROM, no edema, no rash Neuro: Grossly normal neurologic exam, conversant, interactive. Psych: Speech fluent, thoughts congruent, affect anxious Course Vital Signs Temperature 36.6 C 12/31/18 16:19 Pulse 70 12/31/18 16:19 Respiratory Rate 16 12/31/18 16:19 Blood Pressure 155/104 H 12/31/18 16:19 Pulse Oximetry 98 12/31/18 16:19 Temperature 36.6 C 12/31/18 16:19 Temperature Source Temporal Artery Scan 12/31/18 16:19 Pulse 70 12/31/18 16:19 Respiratory Rate 16 12/31/18 16:19 Blood Pressure 155/104 H 12/31/18 16:19 Pulse Oximetry 98 12/31/18 16:19 Oxygen Delivery Method Room Air 12/31/18 16:19 Oxygen Flow Rate 0 12/31/18 16:19 Pain Level 8 12/31/18 16:19
[2018-12-31 17:27] LABS: Abs Immature Grans 0.01 k/cumm (0.0-0.09); Absolute Basophil Count 0.02 k/cumm (0.0-0.2); Absolute Eosinophil Count 0.04 k/cumm (0.0-0.7); Absolute Lymphocyte Count 1.05 k/cumm (1.2-3.4); Absolute Monocyte Count 0.63 k/cumm (0.11-0.7); Absolute Neutrophil Count 5.18 k/cumm (1.2-6.7); Basophils % 0.3; Eosinophils % 0.6; HCT 42.1 % (40.0-50.0); HGB 14.1 g/dL (13.5-17.5); Immature Grans % 0.1; Lymphocytes % 15.2; Mean Corp. HGB Concentration 33.5 g/dL (32.0-36.0); Mean Corpuscular Volume 95.5 fL (80-95); Mean Platelet Volume 10.6 fL (8.0-11.0); Monocytes % 9.1; Neutrophils % 74.7; Platelet Count 186 x1000/uL (130-400); RBC 4.41 m/cumm (4.50-6.00); RBC Distribution Width 13.1 % (11.8-14.1); White Blood Cell Count 6.93 k/cumm (4.4-10.8)
[2018-12-31 17:33] LABS: ALT 38 U/L (12-78); AST 31 U/L (15-37); Albumin 3.8 g/dL (3.4-5.0); Alkaline Phosphatase 42 U/L (46-116); Anion Gap 9.1 mmol/L (3-11); BUN 39 mg/dL (7-18); Bilirubin, Total 0.3 mg/dL (0.2-1.0); CO2 26.9 mmol/L (21.0-32.0); CREATININE 1.64 mg/dL (0.70-1.30); Calcium 9.3 mg/dL (8.5-10.1); Chloride 102 mmol/L (98-107); Estimated GFR 42.37 (mL/min/1.73m2); Glucose 107 mg/dL (70-100); Potassium 4.9 mmol/L (3.5-5.1); Sodium 138 mmol/L (136-145); Total Protein 8.4 g/dL (6.4-8.2)
[2018-12-31 17:36] LABS: INR 2.4 (0.9-1.1); Prothrombin Time 24.5 sec (9.3-11.0)
[2018-12-31] MEDS: Omnipaque 350 MG/ML 100 ML BTL IJ (18:34)
--- NOTE | 2018-12-31 19:25 | DI.VRAD_ITS ---
EXAM: CT Angiography Pelvis With Contrast EXAM DATE/TIME: 12/31/2018 4:56 PM CLINICAL HISTORY: 63 years old, male; Pain; Hip pain; Right hip; Patient HX: Pain in RT groin region and swelling, HX of RT fem vein aneurysm. TECHNIQUE: Axial computed tomographic angiography images of the pelvis with intravenous contrast material, including non-contrast images if performed. MIP and/or 3D reconstructed images were created and reviewed. All CT scans at this facility use at least one of these dose optimization techniques: automated exposure control; mA and/or kV adjustment per patient size (includes targeted exams where dose is matched to clinical indication); or iterative reconstruction. CONTRAST: 100 ml of Omnipaque 350 administered intravenously. COMPARISON: CT (W/ THINS RT THIGH, ABDOMEN, ROUTINE ABDOMEN PELVIS WITH CONTRAST) 08/04/2018 11:46 AM FINDINGS: VASCULATURE: Aorta: The visualized infrarenal abdominal aorta is ectatic measuring 2.8 cm. There is diffuse atherosclerotic disease of the aorta appreciated. No acute vascular pathology. Right iliac arteries: There is ectasia of the right common iliac artery measuring up to 1.3 cm with associated calcific atherosclerotic disease. No acute vascular pathology. Right femoral/popliteal arteries: No occlusion or significant stenosis in the visualized common femoral artery. As is atherosclerotic disease noted. Left iliac arteries: There is ectasia of the left common iliac artery measuring up to 1.4 cm with associated calcific atherosclerotic disease. No acute vascular pathology. Left femoral/popliteal arteries: No occlusion or significant stenosis in the visualized common femoral artery. As is atherosclerotic disease noted. As PELVIS: Stomach and bowel: Visualized small bowel and colon are unremarkable. Appendix: Not confidently visualized in this exam. Bladder: Normal. No mass. Reproductive: There are postsurgical changes at the right groin. Question of the left testicle within the distal left inguinal canal. Intraperitoneal space: No free fluid. Bones/joints: Patient status post complete right hip arthroplasty without evidence of complications. No acute skeletal abnormality otherwise seen. Soft tissues: There is a 4.5 cm x 4.8 cm x 6.2 cm fluid collection which demonstrates a hematocrit fluid level in the right iliopsoas muscle, similar to the reference examination. Findings are compatible with an evolving right iliopsoas hematoma. Lymph nodes: Unremarkable. No enlarged lymph nodes. Other findings: No venous aneurysm is grossly noted. IMPRESSION: 1. Evolving right iliopsoas hematoma measuring up to 6.2 cm, similar in size and location to the reference examination. Please review above for details. 2. No acute vascular pathology grossly noted. 3. Chronic sludge incidental findings as detailed above. Dictated and Authenticated by: Harry Ardon MD. Ordering:LUCITA Weeks MD
--- NOTE | 2018-12-31 22:58 | HPE_ITS ---
Date of service: 12/31/18 Time of Service: 22:58 Assessment and Plan (1) Psoas hematoma, right, secondary to anticoagulant therapy: Start date: 12/31/18 Current visit: No Status: Acute This is a 63-year-old gentleman who has a recurrent hematoma in his right psoas muscle with the last episode in July 2018 and that was with provocation. This episode is without provocation. He has not supratherapeutic as he was last July and there is been no trauma. We will admit for observation withholding his Coumadin and aspirin with serial CBCs. He is not anemic presently. There is no bruising. Follow-up imaging will all be done if he is not feeling better over the next several hours. Long-term he needs to be evaluated as to why this is recurring in the same area. We also may want to reevaluate his anticoagulation. He did have a CVA off Coumadin for 8 months when he traveled to [place] and he cannot go without anticoagulation but may be able to take something other than Coumadin if appropriate. He has had valvular replacement but they are tissue valves and not mechanical. (2) Atrial fibrillation: Current visit: No Status: Chronic Patient appears to have paroxysmal atrial fibrillation appearing to be in sinus rhythm by exam today. He is not having tachycardia. Hold Coumadin for now and follow-up INRs daily with the re-discussion of anticoagulation long- term. (3) Hypertension: Current visit: Yes Status: Chronic Patient was slightly hypertensive in the emergency room on treatment long- term with his cardiomyopathy also requiring treatment with diuretics. He is on metoprolol and losartan which will be continued the same for now but could be adjusted if he remains hypertensive during his hospital stay. He also is on spironolactone and torsemide diuretics. Follow-up chemistries the patient had a chronic kidney disease with INR elevated but appearing stable. History of Present Illness Narrative: This is a 63-year-old gentleman who noticed a right inguinal and upper thigh discomfort on the day of presentation to the ED with a similar episode when he had a hematoma of his iliopsoas muscle and the fall 2017. At that time he has had a provocation with an injury and this time nothing in his history suggests trauma. He has had a right hip replacement in the past and he does have numbness over his femoral nerve area of the right thigh. He is on Coumadin for proximal atrial fibrillation and he does have a tissue valve replacements with the mitral valve being replaced twice with a porcine valve in 2010 and 2013 and the aortic valve replacement 2013 with a bovine valve. He also had some repair of his tricuspid with 1 of the surgeries. He was previous alcoholic and thinks that this was a cause of his valvular disease. He also has impression that he has to be on Coumadin because of his valvular replacements and when he had his CVA he was traveling to [place] for 8 months and was off anticoagulation. He may be a candidate for 1 of the novel anticoagulants and will discuss this with his physician. He was not supratherapeutic on Coumadin upon presentation this visit with an INR of 2.4. With his last hematoma he was supratherapeutic. He responded to bedrest and withholding his Coumadin and aspirin with the last episode and this will be done with this hospitalization as well. We will follow his CBC every 6 hours with no anemia upon presentation in the ED today and his platelet count was normal at 186. Patient has a history of CHF and hypertension and he was slightly hypertensive upon presentation but has no chest pain, no shortness of breath and no abdominal discomfort. His bowel habits have been normal. His urination has been normal. He has had no bruising. He does have weakness in his left hand as a consequence of his CVA and August 2017 and this is stable. Recent he was diagnosed with hepatitis C which is active with a viral load and he will be following up with Oncology for treatment of this. He previously was alcoholic but has not had a drink since 2013. He was told that he had hepatitis C in the when he was trying to donate blood but was told at that time that it was a false positive. He has had a couple of liver biopsies which did not show significant cirrhosis since that time. The last liver biopsy was about 20 years ago. This is a new problem which is being worked up and the patient did have questions because of new diagnosis without having seen a wing scorer as of yet. Review of Systems Review of Systems 13 point review of systems otherwise unrevealing or negative and as per HPI. [facility] Medical History H/O mitral valve replacement (Acute) CHF (congestive heart failure) (Chronic) CVA (cerebral vascular accident) (Chronic) Cardiomyopathy (Acute) Atrial fibrillation (Chronic) Chronic hepatitis C virus infection (Chronic) Surgical History H/O aortic valve replacement (Acute) Social History number of children: 3 Smoking and Tabacco status: Never alcohol intake: former year quit: 2013 substance use type: does not use Meds Home Medications Medication Instructions Recorded Confirmed Type metoprolol succinate 175 mg PO DAILY AM 11/30/17 12/31/18 History metoprolol tartrate 75 mg PO HS 11/30/17 12/31/18 History losartan 50 mg PO QAM #90 tab 01/11/18 12/31/18 Rx spironolactone 25 mg PO DAILY #90 tab 01/11/18 12/31/18 Rx torsemide [Demadex] 30 mg PO DAILY #120 tab 01/11/18 12/31/18 Rx warfarin [Coumadin] 5 mg PO QAM #0 tab 08/05/18 12/31/18 Rx aspirin [Aspir-81] 12/31/18 History coenzyme Q10 [CoQ-10] 12/31/18 History Allergies Allergy/AdvReac Type Severity Reaction Status Date / Time No Known Allergies Allergy Unverified 08/04/18 12:44 Exam Narrative Exam Narrative: General: This a pleasant gentleman appearing his stated age in no acute distress, alert and oriented x3. His well-developed and lean. HEENT: Normocephalic. Eyes with pupils equal and reactive to light symmetrically with extraocular movement intact. Sclerae anicteric. Oropharynx with moist oral mucosa. Ears normal. Neck: Supple without JVD. Lungs: Clear to auscultation and percussion with no adventitious sounds. Heart: Regular rate and rhythm with crescendo 4/6 systolic murmur over the left sternal border and holosystolic grade 4/6 systolic murmur over the apex. No gallop appreciated. His murmurs are over his entire precordium. There is no palpable heave. Abdomen: Soft, nontender and no palpable hepatomegaly. There is no fullness or masses over the lower abdomen. No bruising over the abdominal wall or in the right inguinal region and no palpable masses in the inguinal region on the right. Bowel sounds are positive in all quadrants. Genitalia/rectal exam: Deferred. Extremities: Without clubbing, cyanosis or pitting edema. Hyperpigmentation over the legs bilaterally with shiny atrophic skin and loss of hair. Pulses intact. Capillary refill. No joint swelling and some decrease in muscle mass of the lower extremities. Left hand has intraosseous muscle atrophy of the entire hand with decreased extension of most of the fingers especially the thumb. Neuro: Motor grossly intact except for decreased extension and strength in the left hand which appeared chronic with the muscle atrophy, cranial nerves II through XII grossly intact. Skin: No bruising, venous stasis changes of lower extremities as described with hyperpigmentation and some atrophy of the skin, overall pale, warm and dry. Mental status/psych: Slightly anxious but not depressed with normal affect and good eye contact. Long-term and short-term memory appear to be intact. Results Labs : 12/31/18 17:15 12/31/18 17:15 Laboratory Results - last 24 hr 12/31/18 12/31/18 12/31/18 17:15 17:15 17:15 WBC 6.93 RBC 4.41 L Hgb 14.1 Hct 42.1 MCV 95.5 H MCH 32.0 MCHC 33.5 RDW 13.1 Plt Count 186 MPV 10.6 Immature Gran % 0.1 Neutrophils % 74.7 Lymphocytes % 15.2 Monocytes % 9.1 Eosinophils % 0.6 Basophils % 0.3 Absolute Neutrophils 5.18 Absolute Lymphocytes 1.05 L Absolute Monocytes 0.63 Absolute Eosinophils 0.04 Absolute Basophils 0.02 PT 24.5 H INR 2.4 H Sodium 138 Potassium 4.9 Chloride 102 Carbon Dioxide 26.9 Anion Gap 9.1 BUN 39 H Creatinine 1.64 H Estimated GFR/1.73 m2 42.37 Glucose 107 H Calcium 9.3 Total Bilirubin 0.3 AST 31 ALT 38 Alkaline Phosphatase 42 L Total Protein 8.4 H Albumin 3.8 Last Vital Signs Temp 36.6 C 12/31/18 16:19 Pulse 78 12/31/18 21:30 Resp 20 12/31/18 21:30 BP 145/107 H 12/31/18 21:30 Pulse Ox 97 12/31/18 21:30
[2019-01-01 00:44] LABS: HCT 38.5 % (40.0-50.0); HGB 12.8 g/dL (13.5-17.5); Mean Corp. HGB Concentration 33.2 g/dL (32.0-36.0); Mean Corpuscular Hemoglobin 31.6 pg (27.0-33.0); Mean Corpuscular Volume 95.1 fL (80-95); Mean Platelet Volume 10.2 fL (8.0-11.0); Platelet Count 162 x1000/uL (130-400); RBC 4.05 m/cumm (4.50-6.00); RBC Distribution Width 13.1 % (11.8-14.1); White Blood Cell Count 5.73 k/cumm (4.4-10.8)
[2019-01-01 00:57] VITALS: BP 127/79; PULSE 79; RESP 18; TEMP 37.4; O2SAT 97
[2019-01-01] MEDS: Acetaminophen 325 MG TAB PO ×2 (02:20→22:00)
--- NOTE | 2019-01-01 03:18 | NUR.NOTE ---
Nursing Note: At 22:15 hrs., pt brought to Rm 229 from ER , alert and oriented x 3, with presenting problem of hematoma on right groin which bleeds from home Medicated with tylenol for pain level of 5, and with some relief. Admission care rendered. Oriented to call lights system.
[2019-01-01 03:30] VITALS: BP 116/66; PULSE 78; RESP 18; TEMP 37.2; O2SAT 97
[2019-01-01] MEDS: Normal Saline 1,000 ML 150 ML IV (05:10)
[2019-01-01 07:13] LABS: INR 2.7 (0.9-1.1); Prothrombin Time 27.3 sec (9.3-11.0)
[2019-01-01 07:18] LABS: ALT 29 U/L (12-78); AST 22 U/L (15-37); Albumin 2.7 g/dL (3.4-5.0); Alkaline Phosphatase 29 U/L (46-116); Anion Gap 5.9 mmol/L (3-11); BUN 32 mg/dL (7-18); Bilirubin, Total 0.3 mg/dL (0.2-1.0); CO2 24.1 mmol/L (21.0-32.0); Calcium 8.2 mg/dL (8.5-10.1); Chloride 108 mmol/L (98-107); Estimated GFR 46.97 (mL/min/1.73m2); Glucose 98 mg/dL (70-100); Potassium 4.8 mmol/L (3.5-5.1); Sodium 138 mmol/L (136-145); Total Protein 6.2 g/dL (6.4-8.2)
[2019-01-01 07:40] VITALS: BP 144/79; PULSE 62; RESP 16; TEMP 36.6; O2SAT 99
[2019-01-01] MEDS: Losartan 50 MG TAB PO (08:15)
[2019-01-01] MEDS: Spironolactone 25 MG TAB PO (08:15)
[2019-01-01] MEDS: Metoprolol CR 50 MG TABCR 175 MG PO (08:16)
[2019-01-01] MEDS: Torsemide 20 MG TAB 30 MG PO (08:17)
--- NOTE | 2019-01-01 10:17 | PDOC.CMIN ---
- If Service Date Differs Date of service: 01/01/19 Time of Service: 10:17 Care Management Initial Assess REASON FOR HOSPITALIZATION:: Psoas hematoma PAST MEDICAL HISTORY/PAST SURGICAL HISTORY:: H/O mitral valve replacement (Acute). CHF (congestive heart failure) (Chronic). CVA (cerebral vascular accident) (Chronic). Cardiomyopathy (Acute). Atrial fibrillation (Chronic). Chronic hepatitis C virus infection (Chronic). H/O aortic valve replacement (Acute) PREVIOUS FUNCTIONAL STATUS/SOCIAL/FAMILY SUPPORTS:: Cong resides in [place] with his JULIA Sainz. Cong states that his children reside in [place] and are supportive, though he does not get to see them as often as he would like due to schedules. Cong is independent at baseline, he drives, and manages ADL's. CURRENT FUNCTIONAL STATUS:: Currently Cong is sitting up in his chair when this caption writer visits, he is pleasant and receptive to discussion. ADVANCE DIRECTIVES:: On file - Cong Rucker is agent. Anne Villalobos is alternate Has patient been provided with information about the portal?: Yes Did the patient sign up for the portal?: No CODE STATUS:: DNR/DNI INSURANCE COVERAGE / FINANCIAL ISSUES:: Medicare, [place], [employer] CURRENT HOME/COMMUNITY SERVICES/EQUIPMENT:: Currently Cong has no services or medical equipment in the community. PRIMARY CARE PHYSICIAN:: Pricila Geller POTENTIAL DISCHARGE NEEDS:: F/U appointment with PCP. ? DME - states that he is having some difficulty with ambulating and is using a walker at this time. Discussed facilitating through local DME if needed at time of DC. PATIENT/FAMILY EDUCATION NEEDS:: Review DC instructions, any limitations, and ongoing DC planning discussion. Discuss 'Ask Me Three' ANTICIPATED BARRIERS TO DISCHARGE:: None identified at this time TRANSPORTATION:: Via Private vehicle with JULIA Sainz. PLAN:: Cong will return home with no anticipated services once medically cleared. He will F/U with PCP and plan of care as prescribed. Cong's JULIA Sainz to transport when ready.
[2019-01-01 11:21] VITALS: BP 121/81; PULSE 80; RESP 18; TEMP 37.1; O2SAT 99
--- NOTE | 2019-01-01 12:08 | INITIAL_ITS ---
- If Service Date Differs Date of service: 01/01/19 Time of Service: 10:17 Care Management Initial Assess REASON FOR HOSPITALIZATION:: Psoas hematoma PAST MEDICAL HISTORY/PAST SURGICAL HISTORY:: H/O mitral valve replacement (Acute). CHF (congestive heart failure) (Chronic). CVA (cerebral vascular accident) (Chronic). Cardiomyopathy (Acute). Atrial fibrillation (Chronic). Chronic hepatitis C virus infection (Chronic). H/O aortic valve replacement (A cute) PREVIOUS FUNCTIONAL STATUS/SOCIAL/FAMILY SUPPORTS:: Cong resides in [place] with his JULIA Sainz. Cong states that his children reside in [place] and are supportive, though he does not get to see them as often as he would like due to schedules. Cong is independent at baseline, he drives, and manages ADL's. CURRENT FUNCTIONAL STATUS:: Currently Cong is sitting up in his chair when this investigative writer visits, he is pleasant and receptive to discussion. ADVANCE DIRECTIVES:: On file - Cong Rucker is agent. Anne Villalobos is alternate Has patient been provided with information about the portal?: Yes Did the patient sign up for the portal?: No CODE STATUS:: DNR/DNI INSURANCE COVERAGE / FINANCIAL ISSUES:: Medicare, [place], [employer] CURRENT HOME/COMMUNITY SERVICES/EQUIPMENT:: Currently Cong has no services or medical equipment in the community. PRIMARY CARE PHYSICIAN:: Pricila Geller POTENTIAL DISCHARGE NEEDS:: F/U appointment with PCP. ? DME - states that he is having some difficulty with ambulating and is using a walker at this time. Discussed facilitating through local DME if needed at time of DC. PATIENT/FAMILY EDUCATION NEEDS:: Review DC instructions, any limitations, and ongoing DC planning discussion. Discuss 'Ask Me Three' ANTICIPATED BARRIERS TO DISCHARGE:: None identified at this time TRANSPORTATION:: Via Private vehicle with JULIA Sainz. PLAN:: oCng will return home with no anticipated services once medically cleared. He will F/U with PCP and plan of care as prescribed. Cong's JULIA Sainz to transport when ready.
--- NOTE | 2019-01-01 14:26 | CHAPLAIN ---
Cong's SO Emeli, was visiting with him when I stopped in. I introduced myself, explained my role and offered support. Emeli said that Cong found out he needs to stay another night and is disappointed in that, but he said he understands why he needs to be thoroughly checked out.
[2019-01-01 14:51] LABS: HCT 41.4 % (40.0-50.0); HGB 13.9 g/dL (13.5-17.5)
[2019-01-01 16:02] VITALS: BP 103/69; PULSE 78; RESP 17; TEMP 37.1; O2SAT 96
--- NOTE | 2019-01-01 18:13 | W.PM.PROGNOT ---
Date of Service Date of service: 01/01/19 Time of Service: 18:13 Assessment and Plan (1) Psoas hematoma, right, secondary to anticoagulant therapy: Current visit: No Status: Acute Appearance of third hematoma, all presumably in the same location, while on chronic anticoagulation with Coumadin. Repeat hemoglobin appears stable and clinically does not appear the patient has any further bleeding at this time. Coumadin was held but patient was not reversed. We will continue to monitor through the day today and overnight, repeat H&H in the morning, and reevaluate clinically. Please notes that Mr. Khan has a [id number] score of 5, based on his history of CHF, HTN, prior CVA, and age - would clearly benefit from continued anticoagulation in the future. Both prior bleeds occurred in the setting of supratherapeutic INR, but currently his INR appears normal. Novel oral anticoagulants are not recommended given patient's history of valvular AFib. May require continued anticoagulation with a goal of low therapeutic INR. Will hold Coumadin for now, with short course follow-up with cardiology after discharge. Continue to monitor hemoglobin and INR. (2) CHF (congestive heart failure): Current visit: No Status: Chronic Appears euvolemic currently. Continue ARB, beta-danni, spironolactone, and diuretic therapy with torsemide. Monitor daily weights, and continue low-sodium diet. (3) DVT prophylaxis: Current visit: Yes Status: Acute Currently with therapeutic INR. (4) Advance directive on file: Current visit: Yes Status: Acute Full code. Subjective Interval history since last seen: 63-year-old man with past medical history significant for AFib on AC, as well as prior history of right thigh hematoma, admitted from [facility] Emergency Department on 12/31 with a diagnosis of recurrent hematoma while on Coumadin. Mr. Khan is past medical history significant for CHF with an LVEF of 35%. He is s/p an Aortic Valve (bovine - 2013) and Mitral Valve (porcine - 2010 & 2013) replacement. He has Atrial Fibrillation on chronic anticoagulation with Coumadin. Other past medical history includes a CVA in 2017, recent diagnosis of HCV, alcohol abuse in remission, CKD, and a sending aortic aneurysm at 5.3 cm. The patient also reports a previous history of what is presumed to be a right Psoas hematoma with extension into the right thigh while supratherapeutic on his Coumadin, hospitalized at an outside institution and requiring approximately 8 units of PRBC's in transfusion. He was hospitalized here in July 2018 with a what appeared to be a recurrence of the right sided Psoas hematoma, again in the setting of a supratherapeutic INR. He was discharged without complications, and did not require transfusion therapy. The patient presented to the ED on the day of admission with complaints of right lower extremity discomfort, specifically in his inguinal region, and notes that it felt similar to his prior history of psoas muscle hematoma. CT results showed an evolving right sided iliopsoas hematoma measuring up to 6.2 cm centimeters, that was deemed similar in size and location to the prior exam this past fall. However, this time the patient's INR was not supratherapeutic, and in fact within range at 2.4. He was referred for admission for further evaluation and treatment. This morning Mr. Khan appears comfortable, and has no complaints. His INR continues to be in the therapeutic range of mildly higher despite holding of Coumadin. No other events were reported overnight. He remains afebrile. Exam Narrative Exam Narrative: General: Patient appears comfortable, AAOX3, NAD Neck: Supple CV: Regular, nontachycardic, S1S2, 3/6 RUSB/LLSB murmurs appreciated. Pulmonary: Clear to auscultation bilaterally, no crackles, wheezing, or rhonchi Abdomen: + Bowel Sounds, soft, nontender, nondistended Vascular: No lower extremity edema Neurologic: CN II-XII grossly intact. No focal deficits. Psych: Normal mood and affect. Objective Objective Clinical Data: Abnormal lab results 01/01/19 01/01/19 01/01/19 Range/Units 00:20 06:40 06:40 RBC 4.05 L (4.50-6.00) m/cumm Hgb 12.8 L (13.5-17.5) g/dL Hct 38.5 L (40.0-50.0) % MCV 95.1 H (80-95) fL PT 27.3 H (9.3-11.0) sec INR 2.7 H (0.9-1.1) Chloride 108 H (98-107) mmol/L BUN 32 H (7-18) mg/dL Creatinine 1.50 H (0.70-1.30) mg/dL Calcium 8.2 L (8.5-10.1) mg/dL Alkaline Phosphatase 29 L (46-116) U/L Total Protein 6.2 L (6.4-8.2) g/dL Albumin 2.7 L (3.4-5.0) g/dL Vital Signs Temperature 37.1 C 01/01/19 16:02 Temperature Source Tympanic 01/01/19 16:02 Pulse 78 01/01/19 16:02 Pulse Rhythm Irregular 01/01/19 08:12 Respiratory Rate 17 01/01/19 16:02 Respiratory Effort Non-Labored 01/01/19 08:12 Respiratory Depth Normal 01/01/19 08:12 Respiratory Pattern Normal 01/01/19 08:12 Blood Pressure 103/69 01/01/19 16:02 Pulse Oximetry 96 01/01/19 16:02 Oxygen Delivery Method Room Air 01/01/19 16:02 Oxygen Flow Rate 0 01/01/19 16:02 Pain Level 5 01/01/19 11:21 Comment 01/01/19 03:30 Intake & Output 12/31/18 01/01/19 01/01/19 23:59 11:59 23:59 Intake Total 1000 / 1000 3372.5 / 3922.5 550 / 3922.5 Output Total 2650 / 4050 1400 / 4050 Balance 1000 / 1000 722.5 / -127.5 -850 / -127.5 Weight 75.5 kg 77.2 kg Intake: IV 1000 / 1000 1862.5 / 1862.5 Oral 1510 / 2060 550 / 2060 Output: Urine 2650 / 4050 1400 / 4050 Other: Urine Color Pale Yellow Yellow Urine Appearance Clear Clear Clear Urine Odor Normal Normal Comment Three voids in urinal. Voiding Methods Urinal Urinal Laboratory Results WBC 5.73 k/cumm (4.4-10.8) 01/01/19 00:20 RBC 4.05 m/cumm (4.50-6.00) L 01/01/19 00:20 Hgb 13.9 g/dL (13.5-17.5) 01/01/19 14:36 Hct 41.4 % (40.0-50.0) 01/01/19 14:36 MCV 95.1 fL (80-95) H 01/01/19 00:20 MCH 31.6 pg (27.0-33.0) 01/01/19 00:20 MCHC 33.2 g/dL (32.0-36.0) 01/01/19 00:20 RDW 13.1 % (11.8-14.1) 01/01/19 00:20 Plt Count 162 x1000/uL (130-400) 01/01/19 00:20 MPV 10.2 fL (8.0-11.0) 01/01/19 00:20 Immature Gran % 0.1 12/31/18 17:15 Neutrophils % 74.7 12/31/18 17:15 Lymphocytes % 15.2 12/31/18 17:15 Monocytes % 9.1 12/31/18 17:15 Eosinophils % 0.6 12/31/18 17:15 Basophils % 0.3 12/31/18 17:15 Absolute Neutrophils 5.18 k/cumm (1.2-6.7) 12/31/18 17:15 Absolute Lymphocytes 1.05 k/cumm (1.2-3.4) L 12/31/18 17:15 Absolute Monocytes 0.63 k/cumm (0.11-0.7) 12/31/18 17:15 Absolute Eosinophils 0.04 k/cumm (0.0-0.7) 12/31/18 17:15 Absolute Basophils 0.02 k/cumm (0.0-0.2) 12/31/18 17:15 PT 27.3 sec (9.3-11.0) H 01/01/19 06:40 INR 2.7 (0.9-1.1) H 01/01/19 06:40 Sodium 138 mmol/L (136-145) 01/01/19 06:40 Potassium 4.8 mmol/L (3.5-5.1) 01/01/19 06:40 Chloride 108 mmol/L (98-107) H 01/01/19 06:40 Carbon Dioxide 24.1 mmol/L (21.0-32.0) 01/01/19 06:40 Anion Gap 5.9 mmol/L (3-11) 01/01/19 06:40 BUN 32 mg/dL (7-18) H 01/01/19 06:40 Creatinine 1.50 mg/dL (0.70-1.30) H 01/01/19 06:40 Estimated GFR/1.73 m2 46.97 (mL/min/1.73m2) 01/01/19 06:40 Glucose 98 mg/dL (70-100) 01/01/19 06:40 Calcium 8.2 mg/dL (8.5-10.1) L 01/01/19 06:40 Total Bilirubin 0.3 mg/dL (0.2-1.0) 01/01/19 06:40 AST 22 U/L (15-37) 01/01/19 06:40 ALT 29 U/L (12-78) 01/01/19 06:40 Alkaline Phosphatase 29 U/L (46-116) L 01/01/19 06:40 Total Protein 6.2 g/dL (6.4-8.2) L 01/01/19 06:40 Albumin 2.7 g/dL (3.4-5.0) L 01/01/19 06:40
[2019-01-01 19:33] VITALS: BP 105/71; PULSE 80; RESP 18; TEMP 37.2; O2SAT 98
[2019-01-01] MEDS: Normal Saline Flush 10 ML SYR IVP (20:30)
[2019-01-02] VITALS (7 sets, daily range): BP systolic 101–137; BP diastolic 69–80; PULSE 50–88; RESP 16–18; TEMP 36.7–37.2; O2SAT 96–99
--- NOTE | 2019-01-02 | NUR.NOTE ---
Nursing Note: Assessed R groin area. No abnormalities seen or palpated. Pt reports sensations of pressure and pain that continue to restrict ambulation.
[2019-01-02 07:26] LABS: Abs Immature Grans 0.02 k/cumm (0.0-0.09); Absolute Basophil Count 0.02 k/cumm (0.0-0.2); Absolute Eosinophil Count 0.19 k/cumm (0.0-0.7); Absolute Lymphocyte Count 1.08 k/cumm (1.2-3.4); Absolute Monocyte Count 0.62 k/cumm (0.11-0.7); Absolute Neutrophil Count 3.29 k/cumm (1.2-6.7); Basophils % 0.4; Eosinophils % 3.6; HGB 12.9 g/dL (13.5-17.5); Immature Grans % 0.4; Lymphocytes % 20.7; Mean Corp. HGB Concentration 33.9 g/dL (32.0-36.0); Mean Corpuscular Volume 94.3 fL (80-95); Mean Platelet Volume 10.2 fL (8.0-11.0); Monocytes % 11.9; Platelet Count 158 x1000/uL (130-400); RBC 4.03 m/cumm (4.50-6.00); RBC Distribution Width 12.7 % (11.8-14.1); White Blood Cell Count 5.22 k/cumm (4.4-10.8)
[2019-01-02 07:35] LABS: Anion Gap 3.3 mmol/L (3-11); BUN 29 mg/dL (7-18); CO2 29.7 mmol/L (21.0-32.0); CREATININE 1.54 mg/dL (0.70-1.30); Calcium 8.6 mg/dL (8.5-10.1); Chloride 101 mmol/L (98-107); Estimated GFR 45.56 (mL/min/1.73m2); Glucose 97 mg/dL (70-100); Magnesium 1.8 mg/dL (1.8-2.4); Potassium 4.8 mmol/L (3.5-5.1); Sodium 134 mmol/L (136-145)
[2019-01-02 07:58] LABS: INR 2.3 (0.9-1.1); Prothrombin Time 23.5 sec (9.3-11.0)
[2019-01-02] MEDS: Losartan 50 MG TAB PO (08:16)
[2019-01-02] MEDS: Metoprolol CR 50 MG TABCR 175 MG PO (08:16)
[2019-01-02] MEDS: Spironolactone 25 MG TAB PO (08:16)
[2019-01-02] MEDS: Torsemide 20 MG TAB 30 MG PO (08:17)
--- NOTE | 2019-01-02 10:34 | IN_ITS ---
Date of service: 01/02/19 Time of Service: 09:20 PT Notes Inpatient Physical Therapy Evaluation Date: 01/02/19 Referring Doctor: Dr. Caro PT Orders: PT CONSULT: evaluate for discharge safety Precautions: Standard Patient Profile/Admitting Diagnosis: Patient admitted 12/31/18 for management of iliopsoas hematoma on the right. Patient is chronically anticoagulated due to atrial fibrillation. PMHX: Atrial fibrillation on chronic anticoagulation, with history of iliopsoas hematoma x2. Patient reports residual femoral nerve palsy related to previous hematoma. He is status post aortic and mitral valve replacement. 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 CKD. Aortic aneurysm. Osteoarthritis of the right shoulder, with limitations in range of motion and strength (patient is currently participating in outpatient PT intervention to address this) Social History/Home Situation: Patient lives with his significant other in [place]. He is independent at baseline, working part-time and attending the gym 2-3 times per week. He does not typically utilize an assistive device. Home has 3 steps to enter with bilateral rails. Equipment Owned/DME: None Subjective: Patient states that he continues to have a great deal of pain in the front of his right hip. This bothers him only when weightbearing or trying to lie flat in bed. He is essentially pain-free sitting in the chair. He states that he is feeling remarkably better than he had been yesterday. He has been up walking around his room this morning with use of a FW W. Objective: General Observation: Sitting in chair at initiation of session. No lines Mental Status: A and O x3 Pain: 0/10 at rest. 7/10 with right lower extremity weightbearing ROM: Right Upper Extremity: Shoulder flexion allows 100 degrees, with deviation into ABduction. Shoulder external rotation allows 20 degrees actively. Elbow flexion and extension are within normal limits. Left Upper Extremity: Shoulder flexion 170 degrees. Internal and external rotation WFL. Elbow motion WFL Right Lower Extremity: Hip motion functionally allows 0-85 degrees flexion. Rotation was not assessed. Knee range of motion is WFL Left Lower Extremity: WFL Strength: Right Upper Extremity: Shoulder flexion 3+/5, biceps 4-/5, triceps 4-/5. Head Of English is weak but equal Left Upper Extremity: Shoulder flexion 5/5, biceps 5/5, triceps 5/5. Right Lower Extremity: Hip flexion 3/5. Quads 4/5. Hamstrings 4+/5. Ankle dorsiflexion 5/5. Left Lower Extremity: Hip flexion 5/5, quads 5/5, hamstrings 5/5. Ankle dorsiflexion 5/5 Sensation: Diminished to light touch through the medial aspect of the right lower extremity, extending to the ankle. Patient reports this has been chronically true since his last hematoma. Bed Mobility/Transfers: Supine to sit: Not assessed during today's session, although patient self reports that he is able to complete this independently Sit to stand: Supervision Stand to sit: Supervision Bed to chair: Supervision with FW W Gait: Patient ambulates 75 feet with FW W, partial weightbearing right lower extremity, supervision. He reports significant discomfort with right lower extremity weightbearing, demonstrating approximately 25% weightbearing on the right lower extremity. Post ambulation, he denies residual pain. Stairs: Patient manages therapeutic stairs (4 inches x3), ascending and descending with bilateral upper extremity support to rails with supervision only. He requires cueing and instruction, with excellent carryover and safety. Balance: Static Sitting: Normal Dynamic Sitting: Normal Static Standing: Good Dynamic Standing: Fair Special Tests: Mobility Limitations Standardized Measure [facility] AM-PAC 6 clicks Basic Mobility Inpatient Short Form: Raw Score: 24 CMS Score: 0% deficit Informed Consent/Education: Patient instructed in purpose of PT consult and plan of care. Patient received gait and transfer training with use of FW W, and was also instructed in appropriate management of stairs, all of which he demonstrated well. Assessment: Patient is a 63 year old male referred to physical therapy services with the diagnosis of right iliopsoas hematoma, with orders received for evaluation of safety prior to discharge. Patient presents with continued pain with weightbearing activities, although is well compensated with use of FW W. He received gait and transfer training today, and was able to manage straight plane ambulation and stair management with excellent safety despite need for modification to reduce weightbearing to right lower extremity. He will require utilization of FW W upon discharge, although otherwise I do not anticipate further equipment needs or need for further PT intervention in acute care setting. He currently demonstrates the following impairment level findings: 1. Decreased right hip range of motion 2. Decreased right lower extremity strength 3. Decreased tolerance to right lower extremity weightbearing, resulting in gait deficits 4. Decreased activity tolerance Impairments are contributing to the following functional limitations: 1. [place] on F WW for all ambulation 2. [place] on bilateral rails for stair management 3. Decreased dynamic standing balance Patient is assessed as Moderate 61530 complexity based on the following: History: 63-year-old male referred for safety evaluation in acute care setting, where he is being treated for a right iliopsoas hematoma, resulting in diminished tolerance to weightbearing to the right lower extremity. 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 Examination: Functional limitations as noted above Presentation: Evolving Decision Making: Moderate complexity Plan of Care/Treatment Plan: Patient received gait, transfer and stair training today, with excellent understanding and carryover. He was able to demonstrate sufficient safety to allow for independent ambulation with use of FW W. Once medically stable, he is appropriate for transition back to independent living. No further PT intervention required in acute care setting. DISCHARGE RECOMMENDATIONS: Home with FW W. Resume outpatient PT to address chronic issues. TREATMENT CODE/TIME: 30 minutes (9:20 - 9:50)([id number]) Darlene Aldridge, PT, DPT [facility]
[2019-01-02] MEDS: Acetaminophen 500 MG TAB 1000 MG PO (11:28)
--- NOTE | 2019-01-02 15:02 | PDOC.CMPRO ---
- If Service Date Differs Date of service: 01/02/19 Time of Service: 15:02 Care Management Progress Note S/O: Cong is sitting in his bed this morning, pleasant and receptive to discussion. PT met with Cong today and notified CM that he will require a walker at time of DC. PT states that Cong ambulated well and was able to do stairs today. No change in DC plan at this time. A: 63 y/o male admitted 12/31/18 for iliopsoas hematoma. P: Cong will return home with no services, he will F/U with PCP and plan of care as prescribed. Cong's SO Emeli to transport when ready.
--- NOTE | 2019-01-02 16:12 | W.PM.PROGNOT ---
Date of Service Date of service: 01/02/19 Time of Service: 16:11 Assessment and Plan (1) Psoas hematoma, right, secondary to anticoagulant therapy: Current visit: No Status: Acute Appearance of third hematoma, all presumably in the same location, while on chronic anticoagulation with Coumadin. Repeat hemoglobin appears stable and clinically does not appear the patient has any further bleeding at this time. Coumadin continues to be on hold. Mr. Khan has a [id number] score of 5, based on his history of CHF, HTN, prior CVA, and age - would clearly benefit from continued anticoagulation in the future. Both prior bleeds occurred in the setting of supratherapeutic INR, but currently his INR appears normal. Novel oral anticoagulants were not recommended given patient's history of valvular AFib - however, in discussion with his policy analyst Dr. Jerez - he would like patient trialed on Apixaban, which will be started when INR is appropriate. If continued bleed may benefit from a Watchman Device in the future. (2) CHF (congestive heart failure): Current visit: No Status: Chronic Appears euvolemic currently. Continue ARB, beta-danni, spironolactone, and diuretic therapy with torsemide. Monitor daily weights, and continue low-sodium diet. (3) DVT prophylaxis: Current visit: Yes Status: Acute Currently with therapeutic INR. (4) Advance directive on file: Current visit: Yes Status: Acute Full code. Subjective Interval history since last seen: 63-year-old man with past medical history significant for AFib on AC, as well as prior history of right thigh hematoma, admitted from [facility] Emergency Department on 12/31 with a diagnosis of recurrent hematoma while on Coumadin. Mr. Khan is past medical history significant for CHF with an LVEF of 35%. He is s/p an Aortic Valve (bovine - 2013) and Mitral Valve (porcine - 2010 & 2013) replacement. He has Atrial Fibrillation on chronic anticoagulation with Coumadin. Other past medical history includes a CVA in 2017, recent diagnosis of HCV, alcohol abuse in remission, CKD, and a sending aortic aneurysm at 5.3 cm. The patient also reports a previous history of what is presumed to be a right Psoas hematoma with extension into the right thigh while supratherapeutic on his Coumadin, hospitalized at an outside institution and requiring approximately 8 units of PRBC's in transfusion. He was hospitalized here in July 2018 with a what appeared to be a recurrence of the right sided Psoas hematoma, again in the setting of a supratherapeutic INR. He was discharged without complications, and did not require transfusion therapy. The patient presented to the ED on the day of admission with complaints of right lower extremity discomfort, specifically in his inguinal region, and notes that it felt similar to his prior history of psoas muscle hematoma. CT results showed an evolving right sided iliopsoas hematoma measuring up to 6.2 cm centimeters, that was deemed similar in size and location to the prior exam this past fall. However, this time the patient's INR was not supratherapeutic, and in fact within range at 2.4. He was referred for admission for further evaluation and treatment. This morning Mr. Khan appears comfortable, but with difficulty ambulating. PT recommendations for ambulatory assistance device utilizing a front wheeled walked upon discharge, along with outpatient PT. His INR continues to be in the therapeutic range despite holding of Coumadin. No other events were reported overnight. He remains afebrile. Exam Narrative Exam Narrative: General: Patient appears comfortable, AAOX3, NAD Neck: Supple CV: Regular, nontachycardic, S1S2, 3/6 RUSB/LLSB murmurs appreciated. Pulmonary: Clear to auscultation bilaterally, no crackles, wheezing, or rhonchi Abdomen: + Bowel Sounds, soft, nontender, nondistended Vascular: No lower extremity edema Psych: Normal mood and affect. Objective Objective Clinical Data: Abnormal lab results 01/02/19 01/02/19 01/02/19 Range/Units 06:50 06:50 06:50 RBC 4.03 L (4.50-6.00) m/cumm Hgb 12.9 L (13.5-17.5) g/dL Hct 38.0 L (40.0-50.0) % Absolute Lymphocytes 1.08 L (1.2-3.4) k/cumm PT 23.5 H (9.3-11.0) sec INR 2.3 H (0.9-1.1) Sodium 134 L (136-145) mmol/L BUN 29 H (7-18) mg/dL Creatinine 1.54 H (0.70-1.30) mg/dL Vital Signs Temperature 37.1 C 01/02/19 16:06 Temperature Source Tympanic 01/02/19 16:06 Pulse 83 01/02/19 16:06 Pulse Rhythm Irregular 01/02/19 08:33 Respiratory Rate 18 01/02/19 16:06 Respiratory Effort 01/02/19 08:33 Respiratory Depth Normal 01/02/19 08:33 Respiratory Pattern Normal 01/02/19 08:33 Blood Pressure 109/77 01/02/19 16:06 Pulse Oximetry 97 01/02/19 16:06 Oxygen Delivery Method Room Air 01/02/19 16:06 Oxygen Flow Rate 0 01/02/19 16:06 Pain Level 4 01/02/19 11:40 Comment 01/01/19 03:30 Intake & Output 01/01/19 01/02/19 01/02/19 23:59 11:59 23:59 Intake Total 1540 / 4912.5 1930 / 3130 1200 / 3130 Output Total 2825 / 5475 1800 / 2250 450 / 2250 Balance -1285 / -562.5 130 / 880 750 / 880 Weight 75 kg Intake: IV 2.5 Oral 1530 / 3040 1930 / 3130 1200 / 3130 Output: Urine 2825 / 5475 1800 / 2250 450 / 2250 Other: Urine Color Pale Yellow Yellow Yellow Urine Appearance Clear Clear Urine Odor Normal None Voiding Methods Urinal Urinal Urinal Laboratory Results WBC 5.22 k/cumm (4.4-10.8) 01/02/19 06:50 RBC 4.03 m/cumm (4.50-6.00) L 01/02/19 06:50 Hgb 12.9 g/dL (13.5-17.5) L 01/02/19 06:50 Hct 38.0 % (40.0-50.0) L 01/02/19 06:50 MCV 94.3 fL (80-95) 01/02/19 06:50 MCH 32.0 pg (27.0-33.0) 01/02/19 06:50 MCHC 33.9 g/dL (32.0-36.0) 01/02/19 06:50 RDW 12.7 % (11.8-14.1) 01/02/19 06:50 Plt Count 158 x1000/uL (130-400) 01/02/19 06:50 MPV 10.2 fL (8.0-11.0) 01/02/19 06:50 Immature Gran % 0.4 01/02/19 06:50 Neutrophils % 63.0 01/02/19 06:50 Lymphocytes % 20.7 01/02/19 06:50 Monocytes % 11.9 01/02/19 06:50 Eosinophils % 3.6 01/02/19 06:50 Basophils % 0.4 01/02/19 06:50 Absolute Neutrophils 3.29 k/cumm (1.2-6.7) 01/02/19 06:50 Absolute Lymphocytes 1.08 k/cumm (1.2-3.4) L 01/02/19 06:50 Absolute Monocytes 0.62 k/cumm (0.11-0.7) 01/02/19 06:50 Absolute Eosinophils 0.19 k/cumm (0.0-0.7) 01/02/19 06:50 Absolute Basophils 0.02 k/cumm (0.0-0.2) 01/02/19 06:50 PT 23.5 sec (9.3-11.0) H 01/02/19 06:50 INR 2.3 (0.9-1.1) H 01/02/19 06:50 Sodium 134 mmol/L (136-145) L 01/02/19 06:50 Potassium 4.8 mmol/L (3.5-5.1) 01/02/19 06:50 Chloride 101 mmol/L (98-107) 01/02/19 06:50 Carbon Dioxide 29.7 mmol/L (21.0-32.0) 01/02/19 06:50 Anion Gap 3.3 mmol/L (3-11) 01/02/19 06:50 BUN 29 mg/dL (7-18) H 01/02/19 06:50 Creatinine 1.54 mg/dL (0.70-1.30) H 01/02/19 06:50 Estimated GFR/1.73 m2 45.56 (mL/min/1.73m2) 01/02/19 06:50 Glucose 97 mg/dL (70-100) 01/02/19 06:50 Calcium 8.6 mg/dL (8.5-10.1) 01/02/19 06:50 Magnesium 1.8 mg/dL (1.8-2.4) 01/02/19 06:50 Total Bilirubin 0.3 mg/dL (0.2-1.0) 01/01/19 06:40 AST 22 U/L (15-37) 01/01/19 06:40 ALT 29 U/L (12-78) 01/01/19 06:40 Alkaline Phosphatase 29 U/L (46-116) L 01/01/19 06:40 Total Protein 6.2 g/dL (6.4-8.2) L 01/01/19 06:40 Albumin 2.7 g/dL (3.4-5.0) L 01/01/19 06:40
--- NOTE | 2019-01-02 19:36 | NUR.NOTE ---
Nursing Note: Report received from off going nurse, patient is currently up to bedside chair talking on his cell phone, patient reports no pain or discomfort at this time, call light is within the patients reach, the bed is in the low and locked position.
[2019-01-03 04:05] VITALS: BP 104/77; PULSE 53; RESP 18; TEMP 36; O2SAT 97
[2019-01-03 07:23] LABS: Abs Immature Grans 0.01 k/cumm (0.0-0.09); Absolute Basophil Count 0.03 k/cumm (0.0-0.2); Absolute Lymphocyte Count 1.14 k/cumm (1.2-3.4); Absolute Monocyte Count 0.63 k/cumm (0.11-0.7); Absolute Neutrophil Count 3.42 k/cumm (1.2-6.7); Basophils % 0.6; Eosinophils % 3.7; HCT 42.8 % (40.0-50.0); HGB 14.4 g/dL (13.5-17.5); Immature Grans % 0.2; Mean Corp. HGB Concentration 33.6 g/dL (32.0-36.0); Mean Corpuscular Hemoglobin 31.1 pg (27.0-33.0); Mean Corpuscular Volume 92.4 fL (80-95); Mean Platelet Volume 10.8 fL (8.0-11.0); Monocytes % 11.6; Neutrophils % 62.9; Platelet Count 173 x1000/uL (130-400); RBC 4.63 m/cumm (4.50-6.00); RBC Distribution Width 12.9 % (11.8-14.1); White Blood Cell Count 5.43 k/cumm (4.4-10.8)
[2019-01-03 07:30] LABS: INR 1.6 (0.9-1.1); Prothrombin Time 16.3 sec (9.3-11.0)
[2019-01-03 07:31] LABS: Anion Gap 10.3 mmol/L (3-11); BUN 36 mg/dL (7-18); CO2 24.7 mmol/L (21.0-32.0); CREATININE 1.57 mg/dL (0.70-1.30); Calcium 8.6 mg/dL (8.5-10.1); Chloride 100 mmol/L (98-107); Estimated GFR 44.56 (mL/min/1.73m2); Glucose 94 mg/dL (70-100); Potassium 4.6 mmol/L (3.5-5.1); Sodium 135 mmol/L (136-145)
[2019-01-03 07:50] VITALS: BP 100/66; PULSE 80; RESP 18; TEMP 36.5; O2SAT 99
[2019-01-03] MEDS: Losartan 50 MG TAB PO (08:45)
[2019-01-03] MEDS: Torsemide 20 MG TAB 30 MG PO (08:45)
[2019-01-03] MEDS: Metoprolol CR 50 MG TABCR 175 MG PO (08:46)
[2019-01-03] MEDS: Spironolactone 25 MG TAB PO (08:46)
[2019-01-03 10:25] VITALS: O2SAT 99
[2019-01-03] MEDS: Apixaban 5 MG TAB PO (10:50)
[2019-01-03 11:40] VITALS: BP 98/73; PULSE 80; RESP 20; TEMP 37.3; O2SAT 99
--- NOTE | 2019-01-03 12:06 | PHARADMIT ---
Admission Pharmacy Clinical Review RIGHT ILIOPSOAS HEMATOMA Code Status Full Code Current Weight Wgt-73.9 kg Renally Cleared and Narrow Therapeutic Index Meds CrCl~ 46 mL/min Meds-OK QTc Value / Action Taken QTc-538 in Jul-2018 BP Control, Fever BP- 100/66 Tmax- 37.4C Electrolytes reviewed Na- 135 K+4.6 Mag-2.0 DVT Prophylaxis Apixaban Opiate Usage / Scheduled Bowel Regimen Ordered No Yes Plt/SCr for Heparin / Enoxaparin Plts-173 SCr-1.57 INR for Warfarin INR-1.6 H/H stable, WBC/Bands H&H- 14.4/42.8 WBC-5.43 Antibiotic appropriateness none Cultures and Sensitivities none Surgical ABX d/c within 24 hr na DM control / Insulin Dosing BG- 94 Heart Failure (Check EF%) (SHARA's, B-Block, Diuretics) Losartan, Toprol-XL,Spironolactone, Torsemide IV to PO Switch No Home Meds Reviewed Yes Home Meds Not Ordered Warfarin,ASA, CoEnzyme-Q Comments
--- NOTE | 2019-01-03 13:00 | DSE_ITS ---
Date of service: 01/03/19 Time of Service: 12:49 DS: Diagnosis Discharge Diagnosis (1) Psoas hematoma, right, secondary to anticoagulant therapy: Status: Acute (2) Atrial fibrillation: Status: Chronic Discharge Plan Disposition Patient Disposition: HOME Condition: Stable Discharge Details Reason For Visit: RIGHT ILIOPSOAS HEMATOMA Admit Date/Time: 01/02/19 18:55 Admit Provider: Robert Samson Attending Provider: Robert Samson Primary Care Provider: Pricila Geller Hospital Course Hospital Course: CC: Recurrent Right Psoas Hematoma HPI: 63-year-old man with past medical history significant for AFib on AC, as well as prior history of right thigh hematoma, admitted from [facility] Emergency Department on 12/31 with a diagnosis of recurrent hematoma while on Coumadin. Mr. Khan is past medical history significant for CHF with an LVEF of 35%. He is s/p an Aortic Valve (bovine - 2013) and Mitral Valve (porcine - 2010 & 2013) replacement. He has Atrial Fibrillation on chronic anticoagulation with Coumadin. Other past medical history includes a CVA in 2016, recent diagnosis of HCV, alcohol abuse in remission, CKD, and an Asending Aortic Aneurysm at 5.3 cm. The patient also reports a previous history of what is presumed to be a right Psoas hematoma with extension into the right thigh while supratherapeutic on his Coumadin, hospitalized at an outside institution and requiring approximately 8 units of PRBC's in transfusion. He was hospitalized here in July 2018 with a what appeared to be a recurrence of the right sided Psoas hematoma, again in the setting of a supratherapeutic INR. He was discharged without complications, and did not require transfusion therapy. The patient presented to the ED on the day of admission with complaints of right lower extremity discomfort, specifically in his inguinal region, and notes that it felt similar to his prior history of psoas muscle hematoma. CT results showed an evolving right sided iliopsoas hematoma measuring up to 6.2 cm centimeters, that was deemed similar in size and location to the prior exam this past fall. However, this time the patient's INR was not supratherapeutic, and in fact within range at 2.4. He was referred for admission for further evaluation and treatment. This morning Mr. Khan appears comfortable, but with difficulty ambulating. Physical Therapy has evaluated him and recommends ambulatory assistance device utilizing a front wheeled walker upon discharge, along with outpatient PT. His INR is now subtherapeutic. No other events were reported overnight. He remains afebrile. Hospital Course: (1) Psoas hematoma, right, secondary to anticoagulant therapy: Appearance of third hematoma, all presumably in the same location, while on chronic anticoagulation with Coumadin. Hemoglobin appears stable and in fact normalized. Clinically does not appear to have any further bleeding at this time. Coumadin continues to be on hold. Mr. Khan has a [id number] score of 5, based on his history of CHF, HTN, prior CVA, and age - would clearly benefit from continued anticoagulation in the future. Both prior bleeds occurred in the setting of supratherapeutic INR, but currently his INR appears normal. Novel oral anticoagulants were not recommended given patient's history of valvular AFib - however, in discussion with his business development engineer Dr. Jerez - he would like patient trialed on Apixaban. Discussed risks in detail with patient today, and he is agreeable. Will initiate today, and monitor symptoms and hemoglobin as outpatient. If continued bleed may benefit from a Watchman Device in the future. Will schedule for outpatient PT. Patient has walker at time of discharge. Will ensure rapid follow-up with cardiology as well. (2) CHF (congestive heart failure): Appears euvolemic currently. Continue ARB, beta-danni, spironolactone, and diuretic therapy with torsemide. (3) Advance directive on file: Initially admitted as DNR/DNI, patient would like to be considered Full code, and has completed a COLST form. Home Meds and New Rx's Prescriptions: New Eliquis 5 mg Tablet 5 mg PO BID Qty: 60 RF: 0 Continued losartan 50 MG tablet 50 mg PO QAM Qty: 90 RF: 3 torsemide [Demadex] 20 MG tablet 30 mg PO DAILY Qty: 120 RF: 3 spironolactone 25 MG tablet 25 mg PO DAILY Qty: 90 RF: 3 metoprolol succinate 50 MG tablet extended release 24 hr 175 mg PO DAILY AM RF: 0 aspirin [Aspir-81] 81 mg Tablet,Delayed Release (Dr/Ec) RF: 0 coenzyme Q10 [CoQ-10] 100 mg Capsule RF: 0 Discontinued metoprolol tartrate 25 MG tablet 75 mg PO HS RF: 0 warfarin [Coumadin] 7.5 MG tablet 5 mg PO QAM Qty: 0 RF: 0 Discharge Instructions Additional Instructions: Please follow-up with your primary care doctor within 1 week of discharge, and your business development engineer within 2 weeks. You need to have blood work performed in 3 days. Stand Alone Forms: Nursing Discharge Form Referrals: CARDIOLOGY,[facility] [OTHER] - Activity:: No strenuous Activity. Equipment/Supplies:: Walker Diet:: Low sodium, Fluid restricted Discharge Orders Discharge Orders: Discharge Order (Routine); Ordered 01/03/19 Ordered By: Vignesh Caro DS: Data Vitals/I&O Vitals and I&O: Vital Signs Temperature 37.3 C 01/03/19 11:40 Temperature Source Tympanic 01/03/19 11:40 Pulse 80 01/03/19 11:40 Pulse Rhythm Irregular 01/03/19 08:36 Respiratory Rate 20 01/03/19 11:40 Respiratory Effort Non-Labored 01/03/19 08:36 Respiratory Depth Normal 01/03/19 08:36 Respiratory Pattern Normal 01/03/19 08:36 Blood Pressure 98/73 L 01/03/19 11:40 Pulse Oximetry 99 01/03/19 11:40 Oxygen Delivery Method Room Air 01/03/19 11:40 Oxygen Flow Rate 0 01/03/19 11:40 Pain Level 2 01/02/19 12:28 Comment 01/01/19 03:30 Intake & Output 01/02/19 01/03/19 01/03/19 23:59 11:59 23:59 Intake Total 1440 / 3370 1390 / 1390 Output Total 1700 / 3500 2049 Balance -260 / -130 -660 / -660 Weight 73.9 kg Intake: Oral 1440 / 3370 1390 / 1390 Output: Urine 1700 / 3500 2049 Other: Urine Color Yellow Pale Yellow Urine Appearance Clear Clear Urine Odor Normal None Comment Voids in urinal x2. Voiding Methods Urinal Urinal Completed studies during hospitalization [Text1]: Exam(s) 12/31/[address]:CT pelvic w SYMPTOM/DIAGNOSIS: RT GROIN SWELLING, 'FEELS LIKE HEMATOMA' CT SCAN PELVIS: CT scan of the pelvis was performed following the uneventful administration of intravenous contrast material. Comparison CT scan is 08/04/18. There is ectasia of the distal abdominal aorta to 2.8 cm. There is diffuse atherosclerosis present. There is ectasia of the right common iliac artery up to 1.3 cm with atherosclerotic disease present. There is ectasia of the left common iliac artery up to 1.4 cm with atherosclerotic disease present. The visualized femoral arteries are of normal caliber with mild atherosclerotic disease present. There is again seen an enlargement of the right psoas muscle. It measures 4.5 x 4.8 x 6.2 cm. This is similar compared to the prior examination. There has developed an area of decreased attenuation within the muscle with a fluid debris level. The findings are most suggestive of an evolving hematoma. The patient is again seen to be status post right total hip replacement which appears unremarkable. The visualized bowel in the pelvis appears grossly unremarkable as does the urinary bladder. There is an ovoid soft tissue density seen in the left inguinal canal distally likely reflecting the left testicle. IMPRESSION: 1. Evolving right iliopsoas hematoma measuring up to 6.2 cm in size. 2. No acute vascular abnormality. Labs on day of discharge: Labs from last 24 hours 01/03/19 01/03/19 01/03/19 06:48 06:48 06:48 WBC 5.43 RBC 4.63 Hgb 14.4 Hct 42.8 MCV 92.4 MCH 31.1 MCHC 33.6 RDW 12.9 Plt Count 173 MPV 10.8 Immature Gran % 0.2 Neutrophils % 62.9 Lymphocytes % 21.0 Monocytes % 11.6 Eosinophils % 3.7 Basophils % 0.6 Absolute Neutrophils 3.42 Absolute Lymphocytes 1.14 L Absolute Monocytes 0.63 Absolute Eosinophils 0.20 Absolute Basophils 0.03 PT 16.3 H D INR 1.6 H D Sodium 135 L Potassium 4.6 Chloride 100 Carbon Dioxide 24.7 Anion Gap 10.3 BUN 36 H Creatinine 1.57 H Estimated GFR/1.73 m2 44.56 Glucose 94 Calcium 8.6 Magnesium 2.0 PFSH Medical History H/O mitral valve replacement (Acute) CHF (congestive heart failure) (Chronic) CVA (cerebral vascular accident) (Chronic) Cardiomyopathy (Acute) Atrial fibrillation (Chronic) Chronic hepatitis C virus infection (Chronic) Surgical History H/O aortic valve replacement (Acute) Social History number of children: 3 Smoking and Tabacco status: Never alcohol intake: former year quit: 2013 substance use type: does not use
[2019-01-03] MEDS: Normal Saline Flush 10 ML SYR IVP (13:24)
--- NOTE | 2019-01-03 14:22 | CMDISCH_ITS ---
- If Service Date Differs Date of service: 01/03/19 Time of Service: 14:20 LACE Index Scoring Tool - Questions: Length of Stay (in days): 2 Acuity (Admit via E.D.?): Yes Comorbidities: Congestive Heart Failure E.D. Visits: 3 - Answers: Total Score: 10 Risk of Readmission: High Risk Care Management Discharge Reason for Hospitalization: Psoas hematoma Discharge Plan: Cong will return home today with no services. He will require a FWW which has been distributed by [employer]. Cong completed a new advance directive today which was distributed accordingly. SO Emeli to transport. Patient/Family Education Needs: Review DC instructions, any limitations, and discuss 'Ask Me Three' Services Needed at Discharge: DME Agency ([facility])
== END 2019-01-03 15:30 | disposition home or self-care (01) | DRG 556 ==
LOC: ER 19:43 → MS 22:27
PROVIDERS: Admitting Provider Family Medicine; Emergency Provider Emergency Medicine; PCP Nurse Practitioner Family; Visit Provider Internal Medicine
DX: M79.81 Nontraumatic hematoma of soft tissue (principal); I13.0 Hypertensive heart and chronic kidney disease with heart failure and stage 1 through stage 4 chronic kidney disease, or unspecified chronic kidney disease; I25.810 Atherosclerosis of coronary artery bypass graft(s) without angina pectoris; T45.515A Adverse effect of anticoagulants, initial encounter; Z79.01 Long term (current) use of anticoagulants; I48.91 Unspecified atrial fibrillation; N18.9 Chronic kidney disease, unspecified; I50.9 Heart failure, unspecified; Z95.1 Presence of aortocoronary bypass graft; Z96.641 Presence of right artificial hip joint
CPT/HCPCS: 36415; 80048; 80053; 85027; 96360; 96361; 97162; 99220; 99232; 99239; 99285; 72193; 83735; 85014; 85018; 85025; 85610; 99284; G0378; J3490

== ENCOUNTER 2019-01-11 18:10 | Outpatient (REF) | payer MEDICARE, SELFPAY ==
[2019-01-11 18:46] LABS: Abs Immature Grans 0.01 k/cumm (0.0-0.09); Absolute Basophil Count 0.02 k/cumm (0.0-0.2); Absolute Lymphocyte Count 0.77 k/cumm (1.2-3.4); Absolute Monocyte Count 0.59 k/cumm (0.11-0.7); Absolute Neutrophil Count 5.53 k/cumm (1.2-6.7); Basophils % 0.3; Eosinophils % 1.4; HCT 40.1 % (40.0-50.0); HGB 13.4 g/dL (13.5-17.5); Immature Grans % 0.1; Mean Corp. HGB Concentration 33.4 g/dL (32.0-36.0); Mean Corpuscular Hemoglobin 31.6 pg (27.0-33.0); Mean Corpuscular Volume 94.6 fL (80-95); Mean Platelet Volume 10.8 fL (8.0-11.0); Monocytes % 8.4; Neutrophils % 78.8; Platelet Count 208 x1000/uL (130-400); RBC 4.24 m/cumm (4.50-6.00); RBC Distribution Width 12.9 % (11.8-14.1); White Blood Cell Count 7.02 k/cumm (4.4-10.8)
[2019-01-11 19:08] LABS: ALT 41 U/L (12-78); AST 38 U/L (15-37); Albumin 3.7 g/dL (3.4-5.0); Alkaline Phosphatase 40 U/L (46-116); BUN 34 mg/dL (7-18); Bilirubin, Total 0.7 mg/dL (0.2-1.0); Calcium 9.4 mg/dL (8.5-10.1); Chloride 102 mmol/L (98-107); Estimated GFR 38.06 (mL/min/1.73m2); Glucose 95 mg/dL (70-100); Potassium 4.4 mmol/L (3.5-5.1); Sodium 138 mmol/L (136-145); Total Protein 7.8 g/dL (6.4-8.2)
[2019-01-15 11:21] LABS: HIV-1/2 Ag & Ab Screen Negative (NEGAT)
[2019-01-15 11:44] LABS: Hepatitis B Surface Ag Negative (NEGAT)
[2019-01-15 12:00] LABS: Hep A Total Ab w Rflx IgM Positive (NEGAT); Hep B Core Antibody Negative (NEGAT)
[2019-01-17 11:21] LABS: Hep A Antibody IgM Negative (NEGAT)
== END 2019-01-11 18:30 ==
LOC: NCHCN 18:10
PROVIDERS: PCP Nurse Practitioner Family; Visit Provider Nurse Practitioner Family
DX: Z11.4 Encounter for screening for human immunodeficiency virus [HIV]; B19.20 Unspecified viral hepatitis C without hepatic coma
CPT/HCPCS: 80053; 86704; 86709; 87340; 87389; 85025

== ENCOUNTER 2019-02-21 15:43 | Outpatient (REF) | payer MEDICARE, SELFPAY ==
[2019-02-23 11:48] LABS: Hepatitis B Surface Ag Negative (NEGAT)
[2019-02-23 22:03] LABS: HCV Genotype 1a (Undetected)
[2019-02-24 10:51] LABS: ALT 34 U/L (7-55); ActiTest Grade A0-A1; ActiTest Interpretation no activity; ActiTest Score 0.24; Alpha-2-Macroglobulin 264 mg/dL (100 - 280); Apoliprotein A1 167 mg/dL (>=120); Bilirubin, Total 0.5 mg/dL (<=1.2); FibroTest Interpretation moderate fibrosis; FibroTest Score 0.57; FibroTest Stage F2; GGT 34 U/L (8 - 61); Haptoglobin 37 mg/dL (30 - 200)
== END 2019-02-21 16:03 ==
LOC: NCHCN 15:43
PROVIDERS: PCP Nurse Practitioner Family; Visit Provider Family Medicine
DX: B19.20 Unspecified viral hepatitis C without hepatic coma (principal)
CPT/HCPCS: 82172; 82247; 82977; 83010; 83883; 84460; 87340; 87521

== ENCOUNTER → 2019-02-28 12:02 | Outpatient (BNVA) | payer MEDICARE, SELFPAY | PROVIDERS: PCP Nurse Practitioner Family; Visit Provider Student in an Organized Health Care Education/Training Program | DX: I42.9 Cardiomyopathy, unspecified (principal); Z95.2 Presence of prosthetic heart valve; I48.2 Chronic atrial fibrillation; I71.2 Thoracic aortic aneurysm, without rupture | CPT/HCPCS: 99215 ==

== ENCOUNTER 2019-04-06 08:06 | Outpatient (CLI) | payer MEDICARE, SELFPAY ==
[2019-04-13 16:03] LABS: Misc Referral (MAYO) See Comments
== END 2019-04-06 08:26 ==
PROVIDERS: PCP Nurse Practitioner Family
DX: I50.22 Chronic systolic (congestive) heart failure (principal)
CPT/HCPCS: 36415; 80053; 80375; 83735; 85025

== ENCOUNTER → 2019-04-23 09:30 | Outpatient (BNVA) | payer MEDICARE, SELFPAY | PROVIDERS: PCP Nurse Practitioner Family; Referring Provider Nurse Practitioner Family; Visit Provider Physical Therapy Assistant | DX: Z12.11 Encounter for screening for malignant neoplasm of colon (principal); I11.0 Hypertensive heart disease with heart failure; I50.9 Heart failure, unspecified; I48.91 Unspecified atrial fibrillation; Z79.01 Long term (current) use of anticoagulants ==

== ENCOUNTER 2019-04-23 11:41 | Outpatient (REF) | payer MEDICARE, SELFPAY ==
[2019-04-23 13:39] LABS: HCT 37.3 % (40.0-50.0); HGB 12.5 g/dL (13.5-17.5); Mean Corp. HGB Concentration 33.5 g/dL (32.0-36.0); Mean Corpuscular Hemoglobin 31.7 pg (27.0-33.0); Mean Corpuscular Volume 94.7 fL (80-95); Mean Platelet Volume 11.2 fL (8.0-11.0); Platelet Count 198 x1000/uL (130-400); RBC 3.94 m/cumm (4.50-6.00); RBC Distribution Width 12.8 % (11.8-14.1); White Blood Cell Count 4.74 k/cumm (4.4-10.8)
[2019-04-23 13:47] LABS: ALT 25 U/L (12-78); AST 20 U/L (15-37); Albumin 3.5 g/dL (3.4-5.0); Alkaline Phosphatase 39 U/L (46-116); Anion Gap 9.4 mmol/L (3-11); BUN 66 mg/dL (7-18); Bilirubin, Total 0.5 mg/dL (0.2-1.0); CO2 25.6 mmol/L (21.0-32.0); CREATININE 2.04 mg/dL (0.70-1.30); Calcium 8.8 mg/dL (8.5-10.1); Chloride 103 mmol/L (98-107); Estimated GFR 32.84 (mL/min/1.73m2); Glucose 112 mg/dL (70-100); Sodium 138 mmol/L (136-145)
[2019-04-25 15:11] LABS: HCV RNA Detection Quantitative Undetected IU/mL (UNDECT)
== END 2019-04-23 12:01 ==
LOC: NCHCN 11:41
PROVIDERS: PCP Nurse Practitioner Family; Visit Provider Family Medicine
DX: B19.20 Unspecified viral hepatitis C without hepatic coma (principal)
CPT/HCPCS: 80053; 85027; 86803; 87522

== ENCOUNTER 2019-06-14 13:52 | Outpatient (REF) | payer MEDICARE, SELFPAY ==
[2019-06-14 19:58] LABS: Bilirubin Negative (Negative); Blood Moderate (Negative); Clarity Sl Cloudy (Clear); Glucose Negative (Negative); Ketones Negative (Negative); Leukocyte Esterase Large (Negative); Nitrite Negative (Negative); Specific Gravity <= 1.005 (1.005-1.025); Urobilinogen 0.2 EU/dL (Up TO 0.2)
[2019-06-14 20:49] LABS: Bacteria Few HPF (Negative); C & S Indicated? Yes; Casts Negative LPF (Negative); Crystals Negative HPF (Negative); Epithelial Cells Negative HPF (Negative); Mucus Negative (Negative); Other Cells Negative (Negative); RBC Negative (0-2); WBC >50 HPF (0-5)
== END 2019-06-14 14:12 ==
LOC: NCHCN 13:52
PROVIDERS: PCP Nurse Practitioner Family; Visit Provider Nurse Practitioner Family
DX: R30.0 Dysuria (principal)
CPT/HCPCS: 87077; 81003; 81015; 87086

== ENCOUNTER 2020-01-04 12:14 | Outpatient (REF) | payer MEDICARE, SELFPAY ==
[2020-01-04 18:31] LABS: HCT 39.8 % (40.0-50.0); HGB 13.2 g/dL (13.5-17.5); Mean Corp. HGB Concentration 33.2 g/dL (32.0-36.0); Mean Corpuscular Hemoglobin 31.7 pg (27.0-33.0); Mean Corpuscular Volume 95.7 fL (80-95); Mean Platelet Volume 11.1 fL (8.0-11.0); Platelet Count 200 x1000/uL (130-400); RBC 4.16 m/cumm (4.50-6.00); RBC Distribution Width 13.2 % (11.8-14.1); White Blood Cell Count 4.02 k/cumm (4.4-10.8)
[2020-01-09 15:06] LABS: Lyme Ab w Rflx to Lyme Confirm Positive (Negative)
[2020-01-10 13:44] LABS: IgG Band(s) p58; IgG Immunoblot Negative (Negative); IgM Band(s) p23; IgM Immunoblot Negative (Negative)
== END 2020-01-04 12:34 ==
LOC: NCHCN 12:14
PROVIDERS: PCP Nurse Practitioner Family; Visit Provider Nurse Practitioner Family
DX: R53.83 Other fatigue (principal)
CPT/HCPCS: 85027; 86617; 86618

== ENCOUNTER 2020-02-02 03:02 | Outpatient (CLI) | payer MEDICARE, SELFPAY ==
[2020-02-02 10:21] LABS: Anion Gap 8.8 mmol/L (3-11); BUN 42 mg/dL (7-18); CO2 30.2 mmol/L (21.0-32.0); CREATININE 2.17 mg/dL (0.70-1.30); Calcium 8.5 mg/dL (8.5-10.1); Chloride 100 mmol/L (98-107); Estimated GFR 30.48 (mL/min/1.73m2); Glucose 118 mg/dL (74-106); Potassium 3.9 mmol/L (3.5-5.1); Sodium 139 mmol/L (136-145)
== END 2020-02-02 03:22 ==
PROVIDERS: PCP Nurse Practitioner Family
DX: I50.22 Chronic systolic (congestive) heart failure (principal)
CPT/HCPCS: 36415; 80048

== ENCOUNTER 2020-02-14 02:32 | Outpatient (CLI) | payer MEDICARE, SELFPAY ==
[2020-02-14 08:55] LABS: Anion Gap 9.2 mmol/L (3-11); BUN 34 mg/dL (7-18); CO2 27.8 mmol/L (21.0-32.0); CREATININE 1.84 mg/dL (0.70-1.30); Calcium 8.8 mg/dL (8.5-10.1); Chloride 105 mmol/L (98-107); Estimated GFR 36.88 (mL/min/1.73m2); Glucose 105 mg/dL (74-106); NT-proBNP 1047 pg/mL (<300); Potassium 3.6 mmol/L (3.5-5.1); Sodium 142 mmol/L (136-145)
== END 2020-02-14 02:52 ==
PROVIDERS: PCP Nurse Practitioner Family
DX: I50.22 Chronic systolic (congestive) heart failure (principal)
CPT/HCPCS: 36415; 80048; 83880

== ENCOUNTER 2020-09-12 09:24 | Outpatient (REF) | payer MEDICARE, SELFPAY ==
[2020-09-12 18:59] LABS: Abs Immature Grans 0.01 10^3/uL (0.0-0.06); Absolute Basophil Count 0.04 10^3/uL (0.0-0.2); Absolute Eosinophil Count 0.12 10^3/uL (0.0-0.7); Absolute Lymphocyte Count 0.85 10^3/uL (1.2-3.4); Absolute Monocyte Count 0.41 10^3/uL (0.1-0.8); Absolute Neutrophil Count 2.84 10^3/uL (1.2-6.7); Basophils % 0.9; Eosinophils % 2.8; HCT 42.7 % (40.0-50.0); Immature Grans % 0.2; Lymphocytes % 19.9; MCH 31.7 pg (27.0-33.0); MCHC 32.8 % (32.0-36.0); MCV 96.8 fL (80-95); MPV 11.2 fL (8.0-11.0); Monocytes % 9.6; Neutrophils % 66.6; Nucleated RBC 0 %; Platelet Count 175 10^3/uL (130-400); RBC 4.41 10^6/uL (4.36-5.78); RDW 12.9 % (11.8-14.1); RDW-SD 45.5 fL; WBC 4.27 10^3/uL (4.4-10.8)
[2020-09-12 19:10] LABS: ALT 13 U/L (16-63); AST 11 U/L (15-37); Albumin 3.9 g/dL (3.4-5.0); Alkaline Phosphatase 35 U/L (46-116); Anion Gap 7.1 mmol/L (3-11); BUN 32 mg/dL (7-18); Bilirubin, Total 0.6 mg/dL (0.2-1.0); CO2 28.9 mmol/L (21.0-32.0); Calcium 8.8 mg/dL (8.5-10.1); Chloride 103 mmol/L (98-107); Estimated GFR 37.82 (mL/min/1.73m2); Glucose 135 mg/dL (74-106); Sodium 139 mmol/L (136-145); Total Protein 7.2 g/dL (6.4-8.2)
[2020-09-15 14:23] LABS: HCV RNA Qualitative Undetected (Undetected)
== END 2020-09-12 09:44 ==
LOC: NCHCN 09:24
PROVIDERS: PCP Nurse Practitioner Family; Visit Provider Family Medicine
DX: B19.20 Unspecified viral hepatitis C without hepatic coma (principal)
CPT/HCPCS: 80053; 87522; 85025

== ENCOUNTER 2020-12-22 15:32 | Emergency (ER) | payer MEDICARE, SELFPAY ==
[2020-12-22 15:38] VITALS: BP 131/76; PULSE 75; RESP 16; TEMP 36.6; O2SAT 98
--- NOTE | 2020-12-22 15:45 | DI.RAD_ITS ---
EXAM: XR FOOT RT COMPLETE CLINICAL HISTORY: s/p jammed R foot stepping out of car. TECHNIQUE: 2D digital imaging was performed. COMPARISON: No exams were available for comparison FINDINGS: BONES: No acute fracture is present. No bony destructive lesion is seen. JOINTS: No dislocation present. SOFT TISSUE: Normal. Atherosclerosis. IMPRESSION: No acute fracture or dislocation. DATA REPOSITORY: RADIATION DOSE DELIVERED:
--- NOTE | 2020-12-22 16:11 | ED.GENADUL_ITS ---
Discharge Plan Disposition Patient Disposition: HOME Condition: Stable Discharge Details Clinical Impression: Right foot sprain Primary Care Provider: Pricila Geller ED Provider: Deepa Ba Home Meds and New Rx's Prescriptions: Continued Eliquis 5 mg tablet 5 mg PO BID Qty: 180 RF: 3 polyethylene glycol 3350 17 gram/dose powder 238 g PO ONCE Qty: 238 RF: 0 bisacodyl [Dulcolax (bisacodyl)] 5 mg tablet,delayed release (DR/EC) 5 mg PO ONCE Qty: 4 RF: 0 sildenafil [Viagra] 100 mg tablet 50 mg PO DAILY PRNRF: 0 acyclovir 400 mg tablet 400 mg PO Q4H RF: 0 torsemide 20 mg tablet 20 mg PO DAILY RF: 0 metoprolol succinate 100 mg tablet extended release 24 hr 100 mg PO BID RF: 0 metoprolol succinate 50 mg tablet extended release 24 hr 50 mg PO DAILY AM RF: 0 Entresto 49-51 mg tablet 1 tab PO BID RF: 0 Discharge Instructions Instructions: Foot Sprain (ED) Additional Instructions: Rest, ice, and elevate the affected area as much as possible. Take Tylenol as needed and directed for pain. Follow up with your primary care doctor in 1 week as needed. Return to the emergency department with any worsening or new concerning symptoms. Discharge Data Discharge Physician: Deepa Ba Medical Decision Making 65-year-old male presents with right foot pain that started after he slipped while getting out of a car earlier today. Right dorsal midfoot tender to palpation. There is no deformity or evidence of trauma noted. He is neurovascularly intact. Patient declined medication here. X-ray of right foot obtained and negative. An Flynn wrap was placed to his right foot. Advised to follow up with the primary care doctor for re-evaluation as needed. Usual and customary return precautions given prior to discharge. Medical Records Medical records reviewed: Yes I reviewed the patient's medical records. HPI General Mode of arrival: ambulatory . Date/Time Provider Initiated Documentation: 12/22/20 15:42 . Limitations to Documentation: no limitations . Information obtained by: patient . HPI Narrative: Patient is a 65-year-old male who presents with right foot pain after slipping and twisting his leg while getting out of a car this morning. Patient states he did not initially notice any pain but as the day progressed he developed more pain in the foot and came here to make sure there was no fracture. He has not taken any medication for pain. He denies any pain in his ankle or knee. Related Data Home Medications Medication Instructions Recorded Confirmed apixaban 5 mg tablet 5 mg PO BID #180 tab 02/28/19 12/22/20 acyclovir 400 mg tablet 400 mg PO Q4H 03/02/19 04/23/19 sildenafil 100 mg tablet 50 mg PO DAILY PRN tab 03/02/19 04/23/19 torsemide 20 mg tablet 20 mg PO DAILY tab 03/02/19 12/22/20 bisacodyl 5 mg tablet,delayed 5 mg PO ONCE #4 tab 04/23/19 12/22/20 release polyethylene glycol 3350 17 238 g PO ONCE #238 gm 04/23/19 12/22/20 gram/dose oral powder Entresto 1 tab PO BID 12/22/20 12/22/20 metoprolol succinate 50 mg PO DAILY AM 12/22/20 12/22/20 metoprolol succinate 100 mg PO BID 12/22/20 12/22/20 Previous Rx's Medication Instructions Recorded apixaban 5 mg tablet 5 mg PO BID #180 tab 02/28/19 bisacodyl 5 mg tablet,delayed 5 mg PO ONCE #4 tab 04/23/19 release polyethylene glycol 3350 17 238 g PO ONCE #238 gm 04/23/19 gram/dose oral powder Allergies Allergy/AdvReac Type Severity Reaction Status Date / Time No Known Allergies Allergy Unverified 12/22/20 15:43 General Stated Complaint: Orthopedic SELVIN: 3 Review of Systems All systems reviewed & are unremarkable except as noted in HPI and below [facility] Medical History (Updated 12/22/20 @ 16:52 by Deepa Ba DO) Atherosclerotic heart disease Atrial fibrillation Bilateral claudication of lower limb Cardiomyopathy CHF (congestive heart failure) Chronic hepatitis C virus infection Acutely diagnosed but question of chronic infection since with positive viral load presently CVA (cerebral vascular accident) Decreased hearing of both ears Erectile dysfunction Essential hypertension GERD (gastroesophageal reflux disease) H/O mitral valve replacement Ischemic stroke Mixed hyperlipidemia Solitary pulmonary nodule Varicose veins of both lower extremities Surgical History H/O aortic valve replacement Social History Smoking/Tobacco Use Status: Never Smoking risk assessment performed?: Yes Alcohol Intake: former Year quit: 2013 Drug use: Never Substance use type: does not use Number of Children: 3 Do you feel safe in your relationship?: Yes Exam Const General: cooperative, healthy appearing and no acute distress HENMT Head: normal to inspection Mouth: oral mucosae normal Eyes General: appearance normal, both eyes and all related structures Neck Neck: normal visual inspection Resp Effort & Inspection: normal respiratory effort and able to speak in complete sentences Cardio Rate: regular rate Skin General skin exam: no rashes or lesions noted Neuro General: patient alert, patient awake and patient oriented x3 Motor: muscle tone normal throughout Extrem Ankle/foot/toe images: 1. Tenderness to palpation. No edema, erythema, ecchymosis, crepitus or deformity. Other: No tenderness to palpation of right medial or lateral malleolus or right knee or proximal fibula. Right DP/PT pulses intact. Psych Appearance: grossly normal Affect: normal affect Course Vital Signs Vital signs: Vital Signs Temperature 97.9 F 12/22/20 15:38 Pulse 75 12/22/20 15:38 Respiratory Rate 16 12/22/20 15:38 Blood Pressure 131/76 12/22/20 15:38 Pulse Oximetry 98 12/22/20 15:38 Temperature 97.9 F 12/22/20 15:38 Temperature Source Temporal Artery Scan 12/22/20 15:38 Pulse 75 12/22/20 15:38 Respiratory Rate 16 12/22/20 15:38 Respiratory Effort 12/22/20 15:52 Blood Pressure 131/76 12/22/20 15:38 Blood Pressure Position Sitting 12/22/20 15:38 Pulse Oximetry 98 12/22/20 15:38 Oxygen Delivery Method Room Air 12/22/20 15:38 Oxygen Flow Rate 0 12/22/20 15:38 Pain Level 2 12/22/20 15:53 Comment 12/22/20 15:38
--- NOTE | 2020-12-22 16:26 | DI.VRAD_ITS ---
PROCEDURE INFORMATION: Exam: XR Right Foot Complete Exam date and time: 12/22/2020 4:18 PM Age: 65 years old Clinical indication: Injury or trauma; Fall; Blunt trauma; Foot; Right TECHNIQUE: Imaging protocol: XR Right foot. Views: 3 or more views. COMPARISON: No relevant prior studies available. FINDINGS: Bones/joints: No acute fracture or dislocation. Soft tissues: Normal. IMPRESSION: No acute fracture or dislocation. Dictated and Authenticated by: Radha Edward MD. Ordering:MICHELLE Arenas MD
== END 2020-12-22 17:05 | disposition home or self-care (01) ==
PROVIDERS: Emergency Provider Physician Assistant; PCP Nurse Practitioner Family
DX: S93.691A Other sprain of right foot, initial encounter (principal); W00.0XXA Fall on same level due to ice and snow, initial encounter
CPT/HCPCS: 99283; 73630

== ENCOUNTER 2020-12-30 02:31 | Outpatient (CLI) | payer MEDICARE, SELFPAY ==
[2020-12-30 15:59] LABS: Anion Gap 7.5 mmol/L (3-11); BUN 34 mg/dL (7-18); CO2 28.5 mmol/L (21.0-32.0); CREATININE 1.6 mg/dL (0.70-1.30); Calcium 9.3 mg/dL (8.5-10.1); Chloride 104 mmol/L (98-107); Estimated GFR 43.33 (mL/min/1.73m2); Glucose 111 mg/dL (74-106); Potassium 4.6 mmol/L (3.5-5.1); Sodium 140 mmol/L (136-145)
== END 2020-12-30 02:32 | disposition home or self-care (01) ==
LOC: LBO 02:31
PROVIDERS: PCP Nurse Practitioner Family
DX: I50.22 Chronic systolic (congestive) heart failure (principal)
CPT/HCPCS: 36415; 80048

== ENCOUNTER 2021-03-24 08:20 | Emergency (ER) | payer MEDICARE, SELFPAY ==
[2021-03-24] VITALS (10 sets, daily range): BP systolic 102–126; BP diastolic 65–83; PULSE 68–118; RESP 18–24; TEMP 37.2; O2SAT 95–97
--- NOTE | 2021-03-24 08:15 | DI.CT_ITS ---
Exam(s) CT HEAD WO EXAM: CT HEAD WO CLINICAL HISTORY: left sided weakness, slurred speech. TECHNIQUE: Imaging Protocol: Axial computed tomography images with coronal and sagittal reformatted images were created and reviewed COMPARISON: No exams were available for comparison FINDINGS: Ventricles and Extra axial spaces: Normal in size and morphology for the patient's age. Hemorrhage: None. Cerebral parenchyma: There are areas of decreased attenuation in the white matter consistent with sma ll vessel ischemic disease. There are areas of decreased attenuation in the right parietal lobe, the right occipital lobe and in the area of the left external capsule insular region. These areas may r epresent areas of encephalomalacia and prior injury. The possibility of an acute infarct should be c onsidered. An MRI should be considered for further evaluation. Midline shift: None. Brainstem/Cerebellum: Normal. Calvarium: Normal. Visualized Paranasal sinuses/Mastoids: Clear. Soft Tissues: Unremarkable. IMPRESSION: 1. Areas of decreased attenuation in the right parietal and occipital lobe in the region of the left external/insular region.These may represent areas of encephalomalacia. An MRI should be considered i n this patient for further evaluation. 2. No acute intracranial hemorrhage or midline shift or mass effect. 3. Results of this exam have been verbally communicated with provider. RADIATION DOSE DELIVERED: 872.3mGy.cm Total DLP DATA REPOSITORY: All CT scans at this facility are submitted to the National Radiology Data Registry (NRDR) Dose Index Registry (DIR) with the [employer] (ACR). RADIATION OPTIMIZATION: All CT scans at this facility use at least one of these dose optimization te chniques: automated exposure control; mA and/or kV adjustment per patient size (includes targeted exa ms where dose is matched to clinical indication); or iterative reconstruction.
--- NOTE | 2021-03-24 08:15 | RT.EKG_ITS ---
APPROVED REPORT Exam: Resting ECG Reason for Exam: stroke Patient Location: E HR:75 bpm ECG Measurements Heart Rate 75 AXIS IN [id number] P [id number] QRSd 176 QRS -59 QT 461 T 52 QTc 523 Conclusion Atrial flutter...A-rate 202 Ventricular premature complex...V complex w/ short R-R interval Left bundle branch block...QRSd>120, broad/notched R ST dep lateral with inapprpriate concordance lateral
--- NOTE | 2021-03-24 08:24 | ED.GENADUL_ITS ---
Discharge Plan Disposition Patient Disposition: [facility] Condition: Serious Discharge Details Clinical Impression: Acute cerebrovascular accident (CVA) Primary Care Provider: Pricila Geller ED Provider: Antoni Ospina Home Meds and New Rx's Prescriptions: No Action torsemide 20 mg tablet 20 mg PO DAILY RF: 0 tamsulosin 0.4 mg capsule 0.4 mg PO DAILY RF: 0 aspirin 81 mg Tablet,Chewable 81 mg PO DAILY RF: 0 vitamin B complex [B Complex Vitamin] Tablet 1 tab PO DAILY RF: 0 folic acid 1 mg Tablet 1 mg PO DAILY RF: 0 finasteride 5 mg tablet 5 mg PO DAILY RF: 0 esomeprazole magnesium 20 mg capsule,delayed release(DR/EC) 20 mg PO BID RF: 0 Fish Oil 1,000 mg Capsule 1 cap PO BID RF: 0 cholecalciferol (vitamin D3) [D3-2000] 50 mcg (2,000 unit) Capsule 50 mcg PO DAILY RF: 0 Eliquis 5 mg tablet 2.5 mg PO BID RF: 0 metoprolol succinate 100 mg tablet extended release 24 hr 100 mg PO BID RF: 0 metoprolol succinate 50 mg tablet extended release 24 hr 50 mg PO DAILY AM RF: 0 Entresto 49-51 mg tablet 1 tab PO BID RF: 0 Medical Decision Making 830 --patient was seen immediately on arrival in the hallway and a stroke alert was called. 66-year-old male with multimedical problems including history of CVA in 2017 with residual mild right-sided deficits, coronary artery disease, CHF, mitral valve and aortic valve replacement, here with altered mental status this morning, hypotensive per EMS at scene with left-sided weakness, now with improved strength in his left side and improved blood pressure but continues to have slurred speech and confusion. Last known normal was approximately [address] of the head ordered to assess for acute life-threatening hemorrhage. --Screening ECG was reviewed and interpreted by me: Sinus 75 bpm, left bundle branch block present, ST depressions noted laterally with biphasic component and inappropriately concordant V5 and V6. Left bundle present on prior EKG from 08/04/2018. --NIH stroke scale at least 9 and limited secondary to receptive aphasia. Mild drift left upper extremity and mild left facial droop. 851 -- Spoke with Dr. Jayden Holguin - will accept patient in transfer. Recommends aspirin rectally and IVF. Lab Data Lab results reviewed: Yes I reviewed the patient's lab results. Labs: Laboratory Tests Range/Units 03/24/21 03/24/21 03/24/21 08:20 08:20 08:20 WBC (4.4-10.8) 10^3/uL 4.36 L RBC (4.36-5.78) 10^6/uL 4.59 Hgb (13.5-17.5) g/dL 14.5 Hct (40.0-50.0) % 42.9 MCV (80-95) fL 93.5 MCH (27.0-33.0) pg 31.6 MCHC (32.0-36.0) % 33.8 RDW (11.8-14.1) % 13.6 Plt Count (130-400) 10^3/uL 211 MPV (8.0-11.0) fL 10.0 Immature Gran % 0.5 Neutrophils % 67.2 Lymphocytes % 23.6 Monocytes % 6.4 Eosinophils % 1.6 Basophils % 0.7 Nucleated RBC % % 0 Absolute Neutrophils (1.2-6.7) 10^3/uL 2.93 Absolute Lymphocytes (1.2-3.4) 10^3/uL 1.03 L Absolute Monocytes (0.1-0.8) 10^3/uL 0.28 Absolute Eosinophils (0.0-0.7) 10^3/uL 0.07 Absolute Basophils (0.0-0.2) 10^3/uL 0.03 PT (9.3-11.0) sec 10.4 INR (0.9-1.1) 1.0 Sodium (136-145) mmol/L 138 Potassium (3.5-5.1) mmol/L 3.7 Chloride (98-107) mmol/L 101 Carbon Dioxide (21.0-32.0) mmol/L 23.8 Anion Gap (3-11) mmol/L 13.2 H BUN (7-18) mg/dL 34 H Creatinine (0.70-1.30) mg/dL 2.1 H Estimated GFR/1.73 m2 (mL/min/1.73m2) 31.56 Glucose (74-106) mg/dL 95 Calcium (8.5-10.1) mg/dL 8.7 Total Bilirubin (0.2-1.0) mg/dL 0.2 AST (15-37) U/L 15 ALT (16-63) U/L 18 Alkaline Phosphatase (46-116) U/L 46 Troponin I (<0.06) ng/mL < 0.05 Total Protein (6.4-8.2) g/dL 7.4 Albumin (3.4-5.0) g/dL 3.6 HPI General Mode of arrival: ambulatory . Date/Time Provider Initiated Documentation: 03/24/21 08:22 . Limitations to Documentation: no limitations . Information obtained by: patient . HPI Narrative: 66-year-old male with multiple medical problems including history of CVA 2017 with very mild residual right-sided deficit, coronary artery disease, CHF, A. fib, status post aortic valve replacement, status post mitral valve replacement, presents with chief complaint of altered mental status. History and review of systems limited secondary to altered mental status. Per EMS, patient went to bed last night around 8 PM. He was generally not feeling well yesterday but did not have any focal deficits. noted that she had trouble waking the patient this morning and called EMS. Upon EMS arrival, patient was awake with significant left-sided weakness, repetitive speech and confusion. He was hypotensive with SBP in 70s. Patient has not complained of any pain. EMS note that since transportation is left-sided weakness has improved. Remains confused with slurred speech and repetitive questioning. Related Data Home Medications Medication Instructions Recorded Confirmed torsemide 20 mg tablet 20 mg PO DAILY tab 03/02/19 03/24/21 Entresto 1 tab PO BID 12/22/20 03/24/21 metoprolol succinate 50 mg PO DAILY AM 12/22/20 03/24/21 metoprolol succinate 100 mg PO BID 12/22/20 03/24/21 Eliquis 2.5 mg PO BID 03/24/21 03/24/21 aspirin 81 mg PO DAILY 03/24/21 03/24/21 cholecalciferol (vitamin D3) 50 mcg PO DAILY 03/24/21 03/24/21 [D3-2000] esomeprazole magnesium 20 mg PO BID 03/24/21 03/24/21 finasteride 5 mg PO DAILY 03/24/21 03/24/21 folic acid 1 mg PO DAILY 03/24/21 03/24/21 omega-3 fatty acids-vitamin E 1 cap PO BID 03/24/21 03/24/21 [Fish Oil] tamsulosin 0.4 mg PO DAILY 03/24/21 03/24/21 vitamin B complex [B Complex 1 tab PO DAILY 03/24/21 03/24/21 Vitamin] Allergies Allergy/AdvReac Type Severity Reaction Status Date / Time No Known Allergies Allergy Unverified 03/24/21 08:37 General SELVIN: 3 Review of Systems Unobtainable due to mental status Constitutional Constitutional: Denies fever(s) [facility] Medical History Atherosclerotic heart disease Atrial fibrillation Bilateral claudication of lower limb Cardiomyopathy CHF (congestive heart failure) Chronic hepatitis C virus infection Acutely diagnosed but question of chronic infection since with positive viral load presently CVA (cerebral vascular accident) Decreased hearing of both ears Erectile dysfunction Essential hypertension GERD (gastroesophageal reflux disease) H/O mitral valve replacement Ischemic stroke Mixed hyperlipidemia Solitary pulmonary nodule Varicose veins of both lower extremities Surgical History H/O aortic valve replacement Social History Smoking/Tobacco Use Status: Never Smoking risk assessment performed?: Yes Alcohol Intake: current Alcohol Intake frequency: holidays/special occasions only Drug use: Never Substance use type: does not use Number of Children: 3 Do you feel safe in your relationship?: Yes Exam Const General: cooperative and no acute distress [facility] Head: normocephalic and atraumatic Mouth: moist mucous membranes Eyes Conjunctivae: normal conjunctivae Sclera: normal sclerae EOM: EOM intact bilaterally Neck Neck: trachea midline and supple Resp Auscultation: clear to auscultation bilaterally, no rales, no rhonchi and no wheezes Cardio Rate: regular rate and not tachycardic Rhythm: regular rhythm GI Palpation: soft, not firm, no guarding, no masses, not rigid and nontender Skin General skin exam: no rashes or lesions noted Neuro General: patient alert, patient awake, tone normal and patient confused Cranial Nerves: PERRL and facial strength abnormal (Mild left facial droop) Speech: abnormal speech slurred and receptive aphasia Motor: other (5 out of 5 strength all extremities but some drift noted left upper extremi) Sensory Exam: no sensory deficits noted (limited 2/2 altered mentation) Extrem General: no edema Psych Appearance: grossly normal Speech and Movement: slurred speech Critical Care Time Critical Care Time Critical Care Time: Yes Total Critical Care Time: 40 Attestation: I spent greater than 40 minutes addressing this patient's immediate life threats. Please see MDM section of note. This time was spent engaged in work directly related to the patient's care, exclusive of separate procedures, and failure to initiate these interventions would have likely resulted in clinically significant or life threatening deterioration in the patient's condition.
--- NOTE | 2021-03-24 08:30 | DI.RAD_ITS ---
Exam(s) XR CHEST 1V IN DI DEPT EXAM: XR CHEST 1V IN DI DEPT CLINICAL HISTORY: cva TECHNIQUE: 2D digital imaging was performed. COMPARISON: CR CHEST 2 VIEWS PA,LAT from 09/22/2017 FINDINGS: MEDIASTINUM: Normal. HEART: Cardiomegaly. Three cardiac valvular replacements are again noted. PULMONARY VASCULATURE: Normal. LUNGS: Atelectatic changes are seen in the lungs. No focal consolidating infiltrates. PLEURAL SPACE: No pleural effusion or pneumothorax. BONE:Within normal limits for the patient's age. Sternal wires are noted. OTHER FINDINGS:Low lung volumes. IMPRESSION: 1. Low lung volumes. 2. No focal consolidating infiltrates or effusions. DATA REPOSITORY: RADIATION DOSE DELIVERED:
[2021-03-24 08:34] LABS: Abs Immature Grans 0.02 10^3/uL (0.0-0.06); Absolute Basophil Count 0.03 10^3/uL (0.0-0.2); Absolute Eosinophil Count 0.07 10^3/uL (0.0-0.7); Absolute Lymphocyte Count 1.03 10^3/uL (1.2-3.4); Absolute Monocyte Count 0.28 10^3/uL (0.1-0.8); Absolute Neutrophil Count 2.93 10^3/uL (1.2-6.7); Basophils % 0.7; Eosinophils % 1.6; HCT 42.9 % (40.0-50.0); HGB 14.5 g/dL (13.5-17.5); Immature Grans % 0.5; Lymphocytes % 23.6; MCH 31.6 pg (27.0-33.0); MCHC 33.8 % (32.0-36.0); MCV 93.5 fL (80-95); Monocytes % 6.4; Neutrophils % 67.2; Nucleated RBC 0 %; Platelet Count 211 10^3/uL (130-400); RBC 4.59 10^6/uL (4.36-5.78); RDW 13.6 % (11.8-14.1); RDW-SD 46.8 fL; WBC 4.36 10^3/uL (4.4-10.8)
[2021-03-24 08:43] LABS: Prothrombin Time 10.4 sec (9.3-11.0)
[2021-03-24 08:49] LABS: ALT 18 U/L (16-63); AST 15 U/L (15-37); Albumin 3.6 g/dL (3.4-5.0); Alkaline Phosphatase 46 U/L (46-116); Anion Gap 13.2 mmol/L (3-11); BUN 34 mg/dL (7-18); Bilirubin, Total 0.2 mg/dL (0.2-1.0); CO2 23.8 mmol/L (21.0-32.0); CREATININE 2.1 mg/dL (0.70-1.30); Calcium 8.7 mg/dL (8.5-10.1); Chloride 101 mmol/L (98-107); Estimated GFR 31.56 (mL/min/1.73m2); Glucose 95 mg/dL (74-106); Potassium 3.7 mmol/L (3.5-5.1); Sodium 138 mmol/L (136-145); Total Protein 7.4 g/dL (6.4-8.2); Troponin I < 0.05 ng/mL (<0.06)
[2021-03-24] MEDS: Normal Saline 1,000 ML 125 ML IV (08:54)
[2021-03-24] MEDS: Normal Saline Flush 10 ML SYR IVP (08:54)
[2021-03-24] MEDS: Aspirin 300 MG SUPP PR (09:11)
[2021-03-24] MEDS: Lactated Ringers 500 ML 1000 ML IV (09:12)
== END 2021-03-24 09:26 | disposition short-term general hospital (02) ==
PROVIDERS: Emergency Provider Student in an Organized Health Care Education/Training Program; PCP Nurse Practitioner Family
DX: R41.0 Disorientation, unspecified (principal); I63.9 Cerebral infarction, unspecified; R29.709 NIHSS score 9; I95.9 Hypotension, unspecified
CPT/HCPCS: 36415; 36416; 80053; 82962; 93005; 96360; 99291; 70450; 71045; 81003; 84484; 85025; 85610; 93010

== ENCOUNTER 2021-05-16 20:55 | Observation (INO) | payer MEDICARE, SELFPAY ==
[2021-05-16] VITALS (31 sets, daily range): BP systolic 78–103; BP diastolic 51–67; PULSE 69–84; RESP 10–26; TEMP 37.1; O2SAT 88–99
--- NOTE | 2021-05-16 21:00 | DI.CT_ITS ---
Exam(s) CT HEAD - STROKE PROTOCOL EXAM: CT HEAD - STROKE PROTOCOL CLINICAL HISTORY: altered mental status. TECHNIQUE: Imaging Protocol: Axial computed tomography images with coronal and sagittal reformatted images were created and reviewed COMPARISON: CT CT HEAD WO from 03/24/2021 FINDINGS: There are no skull fractures nor fluid in the visualized paranasal sinuses. There is no evidence of intracranial hemorrhage, mass effect, or shift of midline structures. There are no extra-axial fluid collections. The ventricles are not enlarged or shifted and there is no blo od within the ventricular system nor within the basal cisterns. There is periventricular hypodensity consistent with chronic small vessel disease. There is abnormal hypodensity in the right temporoparietal region and right occipital lobe, unchanged from previous an d most probably from prior infarction. IMPRESSION: No acute intracranial findings on this noninfused CT scan of the brain. Again noted is area of abnormal hypodensity in the right parietal and right occipital lobes, unchange d. Consider MRI for further evaluation. No evidence of intracranial hemorrhage. RADIATION DOSE DELIVERED: 864.96mGy.cm Total DLP DATA REPOSITORY: All CT scans at this facility are submitted to the National Radiology Data Registry (NRDR) Dose Index Registry (DIR) with the [employer] (ACR). RADIATION OPTIMIZATION: All CT scans at this facility use at least one of these dose optimization te chniques: automated exposure control; mA and/or kV adjustment per patient size (includes targeted exa ms where dose is matched to clinical indication); or iterative reconstruction.
--- NOTE | 2021-05-16 21:00 | RT.EKG_ITS ---
APPROVED REPORT Exam: Resting ECG Reason for Exam: stroke? Patient Location: E HR:72 bpm ECG Measurements Heart Rate 72 AXIS [place] 232 P 257 QRSd 170 QRS -58 QT 458 T 10 QTc 502 Conclusion Sinus or ectopic atrial rhythm...P axis (-45,135) Prolonged NY interval...NY >220, V-rate 50- 90 Left bundle branch block...QRSd>120, broad/notched R
--- NOTE | 2021-05-16 21:10 | ED.GENADUL_ITS ---
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 [place] [facility] and had MRI negative for acute infarct and was thought to likely be suffering from seizures and started on keppra and d/c'd to home after hospitalization there. He was apparently per at a [employer] with her tonight when he suddenly became weak and sleepy. His drove him here and on arrival has his eyes closed, breathing spontaneously, equal pupils, and is not responsive to verbal but will localizes painful stimuli when applid to sternum with right hand and also groan. No signs of trauma. Glucose 130 on arrival, hemodynamically stable. Suspect possible ich vs cva vs seizure though no seizure activity reported. Will obtain ct/cta, obtain labs and reassess. Currently patient appears to be maintaining his airway noncontrast ct negative, patient now has eyes open and when I ask him his name he says Cong. Seems to be improving and so suspect he could have had a seizure and is post ictal, will continue to monitor. 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 He will answer his name and knows he is in a hospital otherwise not answering most questions likely from alcohol intoxication. He is requiring o2 and xray read as possible pulmonary edema vs infection, has no significant b lines on bedsside u/s and normal appearing EF and had echo in March showing normal EF [place] [facility]. Suspect aspiration, will cover with dose of zosyn. He is hypotensive I suspect is from possible dehydration and the significant alcohol intoxication. Discussed with hopsitalist who accepts for admission Differential Diagnosis Differential Diagnosis: ich, electrolyte abnormality Medical Records Medical records reviewed: Yes I reviewed the patient's medical records. Imaging Data Radiologic Study: Attestation: I personally reviewed and interpreted this imaging study as follows: Imaging: CT Scan Radiologist's impression: PROCEDURE INFORMATION: Exam: CT Head Without Contrast Exam date and time: 05/16/2021 9:05 PM Age: 66 years old Clinical indication: Altered mental status/memory loss TECHNIQUE: Imaging protocol: Computed tomography of the head without contrast. Other technique: STROKE PROTOCOL was implemented. COMPARISON: CT HEAD WO 03/24/2021 8:31 AM FINDINGS: Brain: Cerebral volume loss noted. Scattered areas of decreased attenuation in the deep periventricular white matter consistent with small vessel ischemic change. No evidence for acute intracranial hemorrhage. Right frontal convexity and occipital lobe encephalomalacia is unchanged from previous exam. Cerebral ventricles: No ventriculomegaly. Paranasal sinuses: Visualized sinuses are unremarkable. No fluid levels. Mastoid air cells: Visualized mastoid air cells are well aerated. Auditory system: Hearing aid noted on the right. Bones/joints: Unremarkable. No acute fracture. Soft tissues: Unremarkable. IMPRESSION: Senescent changes noted. No acute intracranial abnormality. Radiologic Study #2: Attestation: I personally reviewed and interpreted this imaging study as follows: Imaging: CT Scan Radiologist's impression: no acute findings on cta Radiologic Study #3: Attestation: I personally reviewed and interpreted this imaging study as follows: Imaging: X-Ray Radiologist's impression: IMPRESSION: Findings most compatible with at least mild pulmonary edema. Superimposed infection not excluded in the appropriate clinical setting. Lab Data Lab results reviewed: Yes I reviewed the patient's lab results. ECG Data Attestation: I personally reviewed and interpreted this ECG (s) as follows: Prior ECG tracings: available for review Interpretation: sinus rhythm, left bundle branch block, rate of 72, no acute st t wave ishemic changes HPI General Mode of arrival: wheelchair . Date/Time Provider Initiated Documentation: 05/16/21 20:57 . Limitations to Documentation: altered mental status . Information obtained by: family . History of Present Illness 66 year old M presents to the emergency department with the chief complaint of altered mental status, described as moderate, Patient started experiencing this minute(s) (30) and it has been constant. Patient did receive the following treatments prior to arrival, none Related Data Home Medications Medication Instructions Recorded Confirmed torsemide 20 mg tablet 20 mg PO DAILY tab 03/02/19 05/16/21 Entresto 1 tab PO BID 12/22/20 05/16/21 metoprolol succinate 50 mg PO DAILY AM 12/22/20 05/16/21 metoprolol succinate 100 mg PO BID 12/22/20 05/16/21 Eliquis 2.5 mg PO BID 03/24/21 05/16/21 aspirin 81 mg PO DAILY 03/24/21 05/16/21 cholecalciferol (vitamin D3) 50 mcg PO DAILY 03/24/21 05/16/21 [D3-2000] esomeprazole magnesium 20 mg PO BID 03/24/21 05/16/21 finasteride 5 mg PO DAILY 03/24/21 05/16/21 folic acid 1 mg PO DAILY 03/24/21 05/16/21 omega-3 fatty acids-vitamin E 1 cap PO BID 03/24/21 05/16/21 [Fish Oil] tamsulosin 0.4 mg PO DAILY 03/24/21 05/16/21 vitamin B complex [B Complex 1 tab PO DAILY 03/24/21 05/16/21 Vitamin] Allergies Allergy/AdvReac Type Severity Reaction Status Date / Time No Known Allergies Allergy Unverified 05/16/21 22:03 General Stated Complaint: AMS/LOC SELVIN: 1 Review of Systems Unobtainable due to mental status Constitutional Constitutional: Denies chills PFSH Medical History Atherosclerotic heart disease Atrial fibrillation Bilateral claudication of lower limb Cardiomyopathy CHF (congestive heart failure) Chronic hepatitis C virus infection Acutely diagnosed but question of chronic infection since with positive viral load presently CVA (cerebral vascular accident) Decreased hearing of both ears Erectile dysfunction Essential hypertension GERD (gastroesophageal reflux disease) H/O mitral valve replacement Ischemic stroke Mixed hyperlipidemia Solitary pulmonary nodule Varicose veins of both lower extremities Surgical History H/O aortic valve replacement Social History Smoking/Tobacco Use Status: Never Smoking risk assessment performed?: Yes Alcohol Intake: current Alcohol Intake frequency: holidays/special occasions only Drug use: Never Substance use type: does not use Number of Children: 3 Do you feel safe in your relationship?: Yes Exam Const General: lethargic Orientation: obtunded HENMT Head: normal to inspection Ears: external ears normal General nose exam: external nose normal Mouth: moist mucous membranes Eyes General: appearance normal, both eyes and all related structures Neck Neck: normal visual inspection Resp Effort & Inspection: normal respiratory effort Cardio Rate: regular rate Skin General skin exam: no rashes or lesions noted Neuro General: other (eyes closed, will groan and use right arm to localize pain) Extrem General: normal to inspection Course Vital Signs Vital signs: Vital Signs Temperature 37.1 C 05/16/21 21:05 Pulse 72 05/16/21 21:05 Respiratory Rate 10 L 05/16/21 21:05 Blood Pressure 103/67 05/16/21 21:05 Pulse Oximetry 92 05/16/21 21:05 Temperature 37.1 C 05/16/21 21:05 Temperature Source Oral 05/16/21 21:05 Pulse 72 05/16/21 21:05 Respiratory Rate 10 L 05/16/21 21:05 Blood Pressure 103/67 05/16/21 21:05 Pulse Oximetry 92 05/16/21 21:05
--- NOTE | 2021-05-16 21:15 | DI.CT_ITS ---
Exam(s) CT BRAIN NECK CTA EXAM: CT BRAIN NECK CTA CLINICAL HISTORY: altered mental status. TECHNIQUE: Imaging Protocol: Axial CT angiography was performed with multi-slice acquisition and mu lti-planar and/or 3D reconstructions. CONTRAST MATERIAL: Intravenous: Omnipaque 350 Contrast volume:structured data in ml COMPARISON: CT CT pelvic w from 12/31/[address] HEAD WO from 03/24/2021 FINDINGS: CTA Neck W: Suboptimal study. Bolus timing is suboptimal with preferential highlighting of the pulmo nary arterial tree Aortic arch anatomy: The aortic arch anatomy is conventional. Anterior circulation: Common carotid arteries appear to exhibit normal diameters. Visualization-assessment of the carotid bifurcations and proximal internal carotid arteries is suboptimal because of poor bolus timing and ab undant beam artifact from dental fillings. There is some calcified plaque at both carotid bifurcations and proximal internal carotid arteries on both sides the neck but there appears to be less than 30 percent stenosis bilaterally these levels a nd the internal carotid arteries are patent higher up in the neck. Posterior circulation: Difficult to assess because of suboptimal opacification of these vessels. However, the vertebral art eries appear to be patent and both appear to contribute to the formation of the basilar artery at the skull base. CTA Brain W: Anterior circulation: Internal carotid arteries are less than optimally opacified in the skull base which is probably due t o technical factors. Intracavernous internal carotid arteries are heavily calcified but probably patent and there is contr ast seen within this supraclinoid aspect of these vessels. Opacification of both middle cerebral art eries is suboptimal. These vessels do not appear to be occluded. Both A1 segments are patent. No e vidence of obvious aneurysm. Posterior circulation: Basilar artery is formed at the skull base by contribution from both vertebral arteries. Distally te rminates as posterior cerebral arteries which are poorly opacified. CT BRAIN: There is no evidence of intracranial hemorrhage, mass effect, or shift of midline structures. There are no extra-axial fluid collections. Ventricles are not enlarged or shifted and there is no blood w ithin the ventricular system nor within the basal cisterns. There are no ring enhancing lesions in t he brain and no abnormal meningeal enhancement. Encephalomalacia of in the right temporoparietal region and right occipital lobe noted. IMPRESSION: 1. Study is somewhat limited because of less than optimal bolus timing. 2. No obvious vascular occlusion. Mild stenosis at the proximal internal carotid arteries in the ne ck bilaterally, approximately 30 percent. 3. No obvious intracranial vascular occlusion nor obvious aneurysms realized limitations of this st udy. Recommend follow-up MRI/MRA. RADIATION DOSE DELIVERED: 1,324.98mGy.cm Total DLP DATA REPOSITORY: All CT scans at this facility are submitted to the National Radiology Data Registry (NRDR) Dose Index Registry (DIR) with the [employer] (A[employer]). RADIATION OPTIMIZATION: All CT scans at this facility use at least one of these dose optimization te chniques: automated exposure control; mA and/or kV adjustment per patient size (includes targeted exa ms where dose is matched to clinical indication); or iterative reconstruction.
--- NOTE | 2021-05-16 21:27 | DI.VRAD_ITS ---
PROCEDURE INFORMATION: Exam: CT Head Without Contrast Exam date and time: 05/16/2021 9:05 PM Age: 66 years old Clinical indication: Altered mental status/memory loss TECHNIQUE: Imaging protocol: Computed tomography of the head without contrast. Other technique: STROKE PROTOCOL was implemented. COMPARISON: CT HEAD WO 03/24/2021 8:31 AM FINDINGS: Brain: Cerebral volume loss noted. Scattered areas of decreased attenuation in the deep periventricular white matter consistent with small vessel ischemic change. No evidence for acute intracranial hemorrhage. Right frontal convexity and occipital lobe encephalomalacia is unchanged from previous exam. Cerebral ventricles: No ventriculomegaly. Paranasal sinuses: Visualized sinuses are unremarkable. No fluid levels. Mastoid air cells: Visualized mastoid air cells are well aerated. Auditory system: Hearing aid noted on the right. Bones/joints: Unremarkable. No acute fracture. Soft tissues: Unremarkable. IMPRESSION: Senescent changes noted. No acute intracranial abnormality. ASSESSMENT: ASPECTS ([place] Stroke Program Early CT Score) is 10. Dictated and Authenticated by: Sybil Higgins MD. Ordering:DARCIE Gomez MD
--- NOTE | 2021-05-16 21:30 | DI.RAD_ITS ---
Exam(s) XR PORTABLE CHEST AP EXAM: XR PORTABLE CHEST AP CLINICAL HISTORY: hypoxia. TECHNIQUE: 2D digital imaging was performed. COMPARISON: CR XR CHEST 1V IN DI DEPT from 03/24/2021 FINDINGS: Again noted is cardiomegaly, sternotomy wires and prosthetic cardiac valve. There is a pulmonary venous hypertension pattern again noted, similar to previous. Probable small bi lateral pleural effusions. IMPRESSION: Cardiomegaly. Sternotomy. Interstitial pulmonary edema. DATA REPOSITORY: RADIATION DOSE DELIVERED: All CT scans at this facility use at least one of these dose optimization techniques: automated exposure control; mA and/or kV adjustment per patient size (includes targeted e xams where dose is matched to clinical indication); or iterative reconstruction.
[2021-05-16] MEDS: Omnipaque 350 MG/ML 100 ML BTL IJ (21:35)
[2021-05-16] MEDS: Normal Saline - Diluent 50 ML VIAL IV (21:35)
[2021-05-16] MEDS: Normal Saline Flush 10 ML SYR IVP (21:35)
[2021-05-16] MEDS: Normal Saline 1,000 ML 1000 ML IV ×2 (21:38→22:45)
[2021-05-16 21:40] LABS: Abs Immature Grans 0.03 10^3/uL (0.0-0.06); Absolute Basophil Count 0.04 10^3/uL (0.0-0.2); Absolute Eosinophil Count 0.15 10^3/uL (0.0-0.7); Absolute Lymphocyte Count 1.37 10^3/uL (1.2-3.4); Absolute Monocyte Count 0.52 10^3/uL (0.1-0.8); Absolute Neutrophil Count 3.05 10^3/uL (1.2-6.7); Basophils % 0.8; Eosinophils % 2.9; HCT 37.5 % (40.0-50.0); HGB 12.3 g/dL (13.5-17.5); Immature Grans % 0.6; Lymphocytes % 26.6; MCH 31.6 pg (27.0-33.0); MCHC 32.8 % (32.0-36.0); MCV 96.4 fL (80-95); MPV 10.3 fL (8.0-11.0); Monocytes % 10.1; Nucleated RBC 0 %; Platelet Count 170 10^3/uL (130-400); RBC 3.89 10^6/uL (4.36-5.78); RDW 13.8 % (11.8-14.1); RDW-SD 48.8 fL; WBC 5.16 10^3/uL (4.4-10.8)
[2021-05-16 21:52] LABS: INR 1.1 (0.9-1.1); PTT Activated 23.7 sec (21.0-27.5)
--- NOTE | 2021-05-16 21:52 | DI.VRAD_ITS ---
PROCEDURE INFORMATION: Exam: CT Angiography Head With Contrast, Arteriography Exam date and time: 05/16/2021 9:19 PM Age: 66 years old Clinical indication: Speech disturbance and syncope and collapse and paralysis, transient of limb and weakness and other: AMS TECHNIQUE: Imaging protocol: Computed tomography angiography of the head with contrast. Exam focused on the arteries. 3D rendering (Not supervised by radiologist): MIP and/or 3D reconstructed images were created by the technologist. COMPARISON: CT HEAD - STROKE PROTOCOL 05/16/2021 9:18 PM FINDINGS: ANTERIOR CIRCULATION: Right internal carotid artery: Unremarkable. Intracranial segment is patent with no significant stenosis. No aneurysm. Right middle cerebral artery: Unremarkable. No occlusion or significant stenosis. No aneurysm. Right anterior cerebral artery: Unremarkable. No occlusion or significant stenosis. No aneurysm. Left internal carotid artery: Unremarkable. Intracranial segment is patent with no significant stenosis. No aneurysm. Left middle cerebral artery: Unremarkable. No occlusion or significant stenosis. No aneurysm. Left anterior cerebral artery: Unremarkable. No occlusion or significant stenosis. No aneurysm. POSTERIOR CIRCULATION: Right vertebral artery: Unremarkable. No occlusion or significant stenosis. No aneurysm. Left vertebral artery: Unremarkable. No occlusion or significant stenosis. No aneurysm. Basilar artery: Unremarkable. No occlusion or significant stenosis. No aneurysm. Right posterior cerebral artery: Unremarkable. No occlusion or significant stenosis. No aneurysm. Left posterior cerebral artery: Unremarkable. No occlusion or significant stenosis. No aneurysm. Brain: No definite mass, mass effect, or midline shift. Cerebral ventricles: No ventriculomegaly. Bones/joints: Unremarkable. No acute fracture. Soft tissues: Unremarkable. IMPRESSION: No evidence for acute intracranial vascular abnormality. PROCEDURE INFORMATION: Exam: CT Angiography Neck With Contrast Exam date and time: 05/16/2021 9:19 PM Age: 66 years old Clinical indication: Speech disturbance and syncope and collapse and paralysis, transient of limb and weakness and other: AMS TECHNIQUE: Imaging protocol: Computed tomography angiography of the neck with contrast. 3D rendering (Not supervised by radiologist): MIP and/or 3D reconstructed images were created by the technologist. COMPARISON: CT HEAD - STROKE PROTOCOL 05/16/2021 9:18 PM FINDINGS: Right common carotid artery: No stenosis. No dissection or occlusion. Right internal carotid artery: Bolus is limited. There is mild plaque in the proximal right ICA. Right external carotid artery: No occlusion or stenosis of the origin. Left common carotid artery: No stenosis. No dissection or occlusion. Left internal carotid artery: See Dental finding. Left external carotid artery: No occlusion or stenosis of the origin. Right vertebral artery: No stenosis. No dissection or occlusion. Left vertebral artery: No stenosis. No dissection or occlusion. Dental: Bolus is limited with beam hardening artifact from dental work. There is mild plaque in the proximal left ICA. Left mandibular odontogenic disease. Soft tissues: Normal. No significant soft tissue swelling. Bones/joints: Status post median sternotomy. Multilevel disc findings: Moderate cervical spondylosis. There is mild anterolisthesis to C4-C5. Mild lower cervical stenosis. Other findings: The arterial bolus is poor. IMPRESSION: Limited bolus. Mild bilateral proximal ICA stenoses. REFERENCES: NASCET CRITERIA. The degree of internal carotid artery stenosis is based on NASCET criteria. Normal is no stenosis. Mild is less than 50% stenosis. Moderate is 50-69% stenosis. Severe is 70% to 99% stenosis. Total occlusion is no detectable patent lumen. Dictated and Authenticated by: Sybil Higgins MD. Ordering:DARCIE Gomez MD
[2021-05-16 22:00] LABS: ALT 20 U/L (16-63); AST 20 U/L (15-37); Albumin 3.5 g/dL (3.4-5.0); Alkaline Phosphatase 36 U/L (46-116); Anion Gap 12.6 mmol/L (3-11); BUN 24 mg/dL (7-18); Bilirubin, Total 0.2 mg/dL (0.2-1.0); CO2 21.4 mmol/L (21.0-32.0); CREATININE 1.5 mg/dL (0.70-1.30); Calcium 8.4 mg/dL (8.5-10.1); Chloride 106 mmol/L (98-107); Estimated GFR 46.54 (mL/min/1.73m2); Glucose 117 mg/dL (74-106); Potassium 4.4 mmol/L (3.5-5.1); Sodium 140 mmol/L (136-145)
[2021-05-16 22:01] LABS: Bilirubin Negative (Negative); Blood Negative (Negative); Clarity Clear (Clear); Glucose Negative (Negative); Ketones Negative (Negative); Leukocyte Esterase Negative (Negative); Nitrite Negative (Negative); Specific Gravity 1.015 (1.005-1.025); Urobilinogen 0.2 EU/dL (Up TO 0.2)
[2021-05-16 22:10] LABS: *AMPHETAMINES SCREEN URINE Negative (Negative); *BARBITURATES SCREEN URINE Negative (Negative); *BENZODIAZEPINES SCREEN URINE Negative (Negative); Cannabinoids THC Negative (Negative); Cocaine Screen,Urine Negative (Negative); METHADONE URINE SCREEN Negative (Negative); OPIATES URINE SCREEN Negative (Negative)
[2021-05-16 22:11] LABS: ETHANOL BLOOD 431.6 mg/dL (<3)
[2021-05-16 22:13] LABS: Tricyclic Antidepressants Negative (Negative)
--- NOTE | 2021-05-16 22:24 | DI.VRAD_ITS ---
PROCEDURE INFORMATION: Exam: XR Chest Exam date and time: 05/16/2021 9:44 PM Age: 66 years old Clinical indication: Other: Hypoxia TECHNIQUE: Imaging protocol: XR of the chest. Views: 1 view. COMPARISON: CR XR CHEST 1V IN DI DEPT 03/24/2021 8:30 AM FINDINGS: Lungs: Pulmonary vascular prominence. No convincing consolidation. Pleural spaces: Likely small bilateral pleural effusions. No pneumothorax. Heart/Mediastinum: Cardiac silhouette is enlarged. Bones/joints: No acute displaced fractures. Other findings: Surgical changes project over the chest. IMPRESSION: Findings most compatible with at least mild pulmonary edema. Superimposed infection not excluded in the appropriate clinical setting. Dictated and Authenticated by: Yoandy Pearson MD. Ordering:DARCIE Gomez MD
--- NOTE | 2021-05-16 22:58 | HPE_ITS ---
Date of service: 05/16/21 Time of Service: 22:58 Assessment and Plan Assessment and plan (1) Alcohol intoxication: Start date: 05/16/21 Status: Acute Assessment and plan: This is a 66-year-old gentleman who presented to the ED via vehicle with his bring him for evaluation because of altered mental status. He was inebriated and is slowly clearing mentation as he pauly up with IV hydration. Will need to be careful with IV hydration because of his history of ischemic cardiomyopathy and chronic being on treatment for CHF with diuretics held and beta-danni being held for now because of. We will need to advance him to his usual meds as he awakens and is unlikely he will have alcohol withdrawal during this hospitalization with a history of not drinking for the last 5 years and this being a rare event. If different from going home would also allow him to maintain his usual state of being with his hopefully to address this with him long-term. He should not drink alcohol. He is a full code. Qualifiers: Complication of substance-induced condition: with unspecified complication Qualified Code(s): F10.929 - Alcohol use, unspecified with intoxication, unspecified (2) Aspiration pneumonia: Start date: 05/16/21 Status: Acute Assessment and plan: Question of pneumonia on imaging with follow-up imaging and converted to oral antibiotics if patient remains afebrile with no s ignificant elevation of inflammatory markers. Is not hypoxic and is not in respiratory distress. If there is a question of pulmonary process follow-up CT/CTA of the chest would be appropriate. Qualifiers: Aspiration pneumonia type: unspecified Laterality: bilateral Lung location: lower lobe of lung Qualified Code(s): J69.0 - Pneumonitis due to inhalation of food and vomit (3) PAF (paroxysmal atrial fibrillation): Status: Chronic Assessment and plan: Presently in sinus rhythm with patient on chronic medical therapy being held restarted at the awakens. His blood pressure is soft initially but improving with hydration. As patient pauly up he should be replaced on his usual meds and consider going home. He is to follow-up with his PCP as an outpatient. (4) Hypertension: Status: Chronic Assessment and plan: Patient was hypotensive upon admission and is responding to IV hydration with holding beta-danni and diuretic until he awakens later during his observation. If he improves he can have reinitiation of medical therapy as we withdrawal IV hydration. His cardiac enzymes are negative. Qualifiers: Hypertension type: essential hypertension Qualified Code(s): I10 - Essential (primary) hypertension History of Present Illness Narrative: This is a 66-year-old male patient who presented in the ED being driven to the hospital by his with altered mental status. He had an alcohol level greater than 400 but also had a 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 He is on Eliquis for this stroke and has a aortic valve bioprosthetic replacement with a history of atrial fibrillation presently in normal sinus rhythm. The patient was withdrawn and sleepy and obviously inebriated. He has no history of seizures prior to presentation to explain altered mental status such as postictal state and simply increased alcohol intake with a history of alcohol abuse. He did awaken during the customer pricing manager after hospitalization and was threatening to leave the hospital with his hypotension resolved at that time. He had a systolic blood pressure at 80 or lower in the ED and on the medical floor with IV fluid resuscitation and with a history of ischemic cardiomyopathy with beta-blockade possibly keeping his heart rate down during episode of dehydration with alcohol use. Beta-danni and diuretics are being held. This can be reinitiated and IV fluids have subsequently decreased but patient stabilizes. Patient was unable to offer further history. See ED notes are review. Review of Systems Narrative: 13 point review of systems otherwise unrevealing or stable/unobtai nable with patient inebriated. FOR[facility]LY [facility] Medical History Atherosclerotic heart disease Atrial fibrillation Bilateral claudication of lower limb Cardiomyopathy CHF (congestive heart failure) Chronic hepatitis C virus infection Acutely diagnosed but question of chronic infection since with positive viral load presently CVA (cerebral vascular accident) Decreased hearing of both ears Erectile dysfunction Essential hypertension GERD (gastroesophageal reflux disease) H/O mitral valve replacement Ischemic stroke Mixed hyperlipidemia Solitary pulmonary nodule Varicose veins of both lower extremities Surgical History H/O aortic valve replacement Social History Smoking/Tobacco Use Status: Never Smoking risk assessment performed?: Yes Alcohol Intake: current Alcohol Intake frequency: holidays/special occasions only Drug use: Never Substance use type: does not use Number of Children: 3 Do you feel safe in your relationship?: Yes Meds Allergies and Home Medications Allergies Allergy/AdvReac Type Severity Reaction Status Date / Time No Known Allergies Allergy Unverified 05/16/21 22:03 Home Medications Medication Instructions Recorded Confirmed Type torsemide 20 mg tablet 20 mg PO DAILY tab 03/02/19 05/16/21 History Entresto 1 tab PO BID 12/22/20 05/16/21 History metoprolol succinate 50 mg PO DAILY AM 12/22/20 05/16/21 History metoprolol succinate 100 mg PO BID 12/22/20 05/16/21 History Eliquis 2.5 mg PO BID 03/24/21 05/16/21 History aspirin 81 mg PO DAILY 03/24/21 05/16/21 History cholecalciferol (vitamin D3) 50 mcg PO DAILY 03/24/21 05/16/21 History [D3-2000] esomeprazole magnesium 20 mg PO BID 03/24/21 05/16/21 History finasteride 5 mg PO DAILY 03/24/21 05/16/21 History folic acid 1 mg PO DAILY 03/24/21 05/16/21 History omega-3 fatty acids-vitamin E 1 cap PO BID 03/24/21 05/16/21 History [Fish Oil] tamsulosin 0.4 mg PO DAILY 03/24/21 05/16/21 History vitamin B complex [B Complex 1 tab PO DAILY 03/24/21 05/16/21 History Vitamin] Exam Narrative Exam Narrative: General: Patient appears older than stated age, alert and oriented to place and person but not to time. He is in no acute distress upon my exam and very cooperative. HEENT: Normocephalic, eyes with pupils equal and reactive light symmetrically, extraocular movement intact and sclera anicteric. Neck: Supple without JVD. Lungs: Bronchovesicular present diffusely with no focalizing rales or rhonchi but decreased aeration at bases. Heart: Regular rate and rhythm with systolic murmur left sternal border. No gallop or rubs. Abdomen: Soft with normal contour, no palpable hepatosplenomegaly. Bowel sounds positive all quadrants. Genitalia/rectal: Exam deferred. Extremities: Chronic skin changes with hyperpigmentation and atrophy but no ulcerations over both legs circumferentially around the ankles, no pitting edema, peripheral pulses decreased but intact. No cyanosis or clubbing. Skin: Moist, warm and normal color with actinic changes over sun exposed areas with roughened texture with no suspicious lesions with quick survey of skin. Neuro: Cranial nerves II through XII appear to be grossly intact. Patient is moving all extremities with history of left-sided weakness. Psych: Patient is inebriated with flattened affect but mood appears normal. No abnormal thought processes manifested. Remote and recent memory not obtainable with patient inebriated and sleeping just prior to my exam. Results Imaging Imaging Studies: Exam: CT Head Without Contrast Exam date and time: 05/16/2021 9:05 PM Age: 66 years old Clinical indication: Altered mental status/memory loss TECHNIQUE: Imaging protocol: Computed tomography of the head without contrast. Other technique: STROKE PROTOCOL was implemented. COMPARISON: CT HEAD WO 03/24/2021 8:31 AM FINDINGS: Brain: Cerebral volume loss noted. Scattered areas of decreased attenuation in the deep periventricular white matter consistent with small vessel ischemic change. No evidence for acute intracranial hemorrhage. Right frontal convexity and occipital lobe encephalomalacia is unchanged from previous exam. Cerebral ventricles: No ventriculomegaly. Paranasal sinuses: Visualized sinuses are unremarkable. No fluid levels. Mastoid air cells: Visualized mastoid air cells are well aerated. Auditory system: Hearing aid noted on the right. Bones/joints: Unremarkable. No acute fracture. Soft tissues: Unremarkable. IMPRESSION: Senescent changes noted. No acute intracranial abnormality. Exam: CT Angiography Head With Contrast, Arteriography Exam date and time: 05/16/2021 9:19 PM Age: 66 years old Clinical indication: Speech disturbance and syncope and collapse and paralysis, transient of limb and weakness and other: AMS TECHNIQUE: Imaging protocol: Computed tomography angiography of the head with contrast. Exam focused on the arteries. 3D rendering (Not supervised by radiologist): MIP and/or 3D reconstructed images were created by the technologist. COMPARISON: CT HEAD - STROKE PROTOCOL 05/16/2021 9:18 PM FINDINGS: ANTERIOR CIRCULATION: Right internal carotid artery: Unremarkable. Intracranial segment is patent with no significant stenosis. No aneurysm. Right middle cerebral artery: Unremarkable. No occlusion or significant stenosis. No aneurysm. Right anterior cerebral artery: Unremarkable. No occlusion or significant stenosis. No aneurysm. Left internal carotid artery: Unremarkable. Intracranial segment is patent with no significant stenosis. No aneurysm. Left middle cerebral artery: Unremarkable. No occlusion or significant stenosis. No aneurysm. Left anterior cerebral artery: Unremarkable. No occlusion or significant stenosis. No aneurysm. POSTERIOR CIRCULATION: Right vertebral artery: Unremarkable. No occlusion or significant stenosis. No aneurysm. Left vertebral artery: Unremarkable. No occlusion or significant stenosis. No aneurysm. Basilar artery: Unremarkable. No occlusion or significant stenosis. No aneurysm. Right posterior cerebral artery: Unremarkable. No occlusion or significant stenosis. No aneurysm. Left posterior cerebral artery: Unremarkable. No occlusion or significant stenosis. No aneurysm. Brain: No definite mass, mass effect, or midline shift. Cerebral ventricles: No ventriculomegaly. Bones/joints: Unremarkable. No acute fracture. Soft tissues: Unremarkable. IMPRESSION: No evidence for acute intracranial vascular abnormality. PROCEDURE INFORMATION: Exam: CT Angiography Neck With Contrast Exam date and time: 05/16/2021 9:19 PM Age: 66 years old Clinical indication: Speech disturbance and syncope and collapse and paralysis, transient of limb and weakness and other: AMS TECHNIQUE: Imaging protocol: Computed tomography angiography of the neck with contrast. 3D rendering (Not supervised by radiologist): MIP and/or 3D reconstructed images were created by the technologist. COMPARISON: CT HEAD - STROKE PROTOCOL 05/16/2021 9:18 PM FINDINGS: Right common carotid artery: No stenosis. No dissection or occlusion. Right internal carotid artery: Bolus is limited. There is mild plaque in the proximal right ICA. Right external carotid artery: No occlusion or stenosis of the origin. Left common carotid artery: No stenosis. No dissection or occlusion. Left internal carotid artery: See Dental finding. Left external carotid artery: No occlusion or stenosis of the origin. Right vertebral artery: No stenosis. No dissection or occlusion. Left vertebral artery: No stenosis. No dissection or occlusion. Dental: Bolus is limited with beam hardening artifact from dental work. There is mild plaque in the proximal left ICA. Left mandibular odontogenic disease. Soft tissues: Normal. No significant soft tissue swelling. Bones/joints: Status post median sternotomy. Multilevel disc findings: Moderate cervical spondylosis. There is mild anterolisthesis to C4-C5. Mild lower cervical stenosis. Other findings: The arterial bolus is poor. IMPRESSION: Limited bolus. Mild bilateral proximal ICA stenoses. REFERENCES: NASCET CRITERIA. The degree of internal carotid artery stenosis is based on NASCET criteria. Normal is no stenosis. Mild is less than 50% stenosis. Moderate is 50-69% stenosis. Severe is 70% to 99% stenosis. Total occlusion is no detectable patent lumen. Exam: XR Chest Exam date and time: 05/16/2021 9:44 PM Age: 66 years old Clinical indication: Other: Hypoxia TECHNIQUE: Imaging protocol: XR of the chest. Views: 1 view. COMPARISON: CR XR CHEST 1V IN DI DEPT 03/24/2021 8:30 AM FINDINGS: Lungs: Pulmonary vascular prominence. No convincing consolidation. Pleural spaces: Likely small bilateral pleural effusions. No pneumothorax. Heart/Mediastinum: Cardiac silhouette is enlarged. Bones/joints: No acute displaced fractures. Other findings: Surgical changes project over the chest. IMPRESSION: Findings most compatible with at least mild pulmonary edema. Superimposed infection not excluded in the appropriate clinical setting. Date of study: 01/19/2018 Transthoracic Echocardiography M-mode, complete 2D, complete spectral Doppler, and color Doppler *STUDY CONCLUSIONS* Summary: 1. Left ventricle: Wall thickness was increased in a pattern of mild LVH. Systolic function was moderately to severely reduced. The estimated ejection fraction was 30-35%. Diffuse hypokinesis. 2. Ventricular septum: Septal motion showed paradoxical motion. 3. Aortic valve: A bioprosthesis was present, normal function. The prosthesis had a normal range of motion. The sewing ring appeared normal. No PVL. Peak velocity (S): 2.9m/sec. Mean gradient (S): 19.3mm Hg. Valve area (VTI): 1.1cm^2. Indexed valve area (VTI): 0.6cm^2/m^2 possible PPM. Peak velocity ratio of LVOT to aortic valve: 0.32. AT 66ms. 4. Mitral valve: A bioprosthesis was present; normal function. The sewing ring appeared normal. No PVL. Pressure half-time: 108ms. DOI 2.1. Peak velocity 1.5 m/s. EOA 1.36 cm2. 5. Left atrium: The atrium was mildly dilated. 6. Right ventricle: The cavity size was normal. Systolic function was mildly reduced. 7. Atrial septum: No defect or patent foramen ovale was identified. 8. Pulmonary arteries: Pulmonary systolic pressure was in the range of 15mm Hg to 25mm Hg. 9. Inferior vena cava: The vessel was normal in size. The respirophasic diameter changes were in the normal range (greater than or equal to 50%), consistent with normal central venous pressure. Labs Result diagrams: 05/17/21 06:25 05/17/21 06:25 Labs: Laboratory Results - last 24 hr 05/16/21 05/16/21 05/16/21 21:30 21:30 21:30 WBC 5.16 RBC 3.89 L Hgb 12.3 L Hct 37.5 L MCV 96.4 H MCH 31.6 MCHC 32.8 RDW 13.8 Plt Count 170 MPV 10.3 Immature Gran % 0.6 Neutrophils % 59.0 Lymphocytes % 26.6 Monocytes % 10.1 Eosinophils % 2.9 Basophils % 0.8 Nucleated RBC % 0 Absolute Neutrophils 3.05 Absolute Lymphocytes 1.37 Absolute Monocytes 0.52 Absolute Eosinophils 0.15 Absolute Basophils 0.04 PT 11.0 INR 1.1 APTT 23.7 Sodium 140 Potassium 4.4 Chloride 106 Carbon Dioxide 21.4 Anion Gap 12.6 H BUN 24 H Creatinine 1.5 H Estimated GFR/1.73 m2 46.54 Glucose 117 H Calcium 8.4 L Magnesium 2.0 Total Bilirubin 0.2 AST 20 ALT 20 Alkaline Phosphatase 36 L Total Protein 7.0 Albumin 3.5 Urine Color Urine Clarity Urine pH Ur Specific [place] Urine Protein Urine Ketones Urine Blood Urine Nitrite Urine Bilirubin Urine Urobilinogen Ur Leukocyte Esterase Urine Glucose Urine Opiates Screen Urine Methadone Screen Ur Barbiturates Screen Ur Tricyclics Screen Ur Amphetamines Screen U Benzodiazepines Scrn Urine Cocaine Screen Ur THC Screen Ethyl Alcohol 05/16/21 05/16/21 05/16/21 21:30 21:55 21:55 WBC RBC Hgb Hct MCV MCH MCHC RDW Plt Count MPV Immature Gran % Neutrophils % Lymphocytes % Monocytes % Eosinophils % Basophils % Nucleated RBC % Absolute Neutrophils Absolute Lymphocytes Absolute Monocytes Absolute Eosinophils Absolute Basophils PT INR APTT Sodium Potassium Chloride Carbon Dioxide Anion Gap BUN Creatinine Estimated GFR/1.73 m2 Glucose Calcium Magnesium Total Bilirubin AST ALT Alkaline Phosphatase Total Protein Albumin Urine Color Yellow Urine Clarity Clear Urine pH 6.0 Ur Specific [place] 1.015 Urine Protein Negative Urine Ketones Negative Urine Blood Negative Urine Nitrite Negative Urine Bilirubin Negative Urine Urobilinogen 0.2 Ur Leukocyte Esterase Negative Urine Glucose Negative Urine Opiates Screen Negative Urine Methadone Screen Negative Ur Barbiturates Screen Negative Ur Tricyclics Screen Negative Ur Amphetamines Screen Negative U Benzodiazepines Scrn Negative Urine Cocaine Screen Negative Ur THC Screen Negative Ethyl Alcohol 431.6 Last Vital Signs Temp 37.1 C 05/16/21 21:40 Pulse 70 05/16/21 21:40 Resp 26 H 05/16/21 21:40 BP 78/51 L 05/16/21 21:40 Pulse Ox 88 L 05/16/21 21:40
[2021-05-16 23:15] LABS: Source Nasal/Nares
[2021-05-16] MEDS: Normal Saline 1,000 ML 125 ML IV (23:26)
[2021-05-16] MEDS: PIPERACILLIN/TAZO 4.5 GM in Normal Saline 100 ML IVPB (23:36)
[2021-05-17] VITALS (33 sets, daily range): BP systolic 64–143; BP diastolic 38–93; PULSE 71–87; RESP 17–28; TEMP 36.8–37.1; O2SAT 23–99
[2021-05-17 00:06] LABS: COVID-19 PCR Negative (Negative)
[2021-05-17] MEDS: Normal Saline 1,000 ML 250 ML IV (01:00)
[2021-05-17 02:12] LABS: Lactate 1.2 mmol/L (0.6-1.4)
[2021-05-17 02:14] LABS: ESR < 1 mm/hr (0-20)
[2021-05-17 02:40] LABS: Troponin I < 0.05 ng/mL (<0.06)
[2021-05-17 02:43] LABS: D-Dimer 675 ng/mlFEU (<500)
[2021-05-17 02:48] LABS: Procalcitonin < 0.1 ng/mL
[2021-05-17 02:49] LABS: C-Reactive Protein < 0.05 mg/dL (0.0-0.3)
[2021-05-17] MEDS: Normal Saline 1,000 ML 125 ML IV (04:25)
[2021-05-17] MEDS: PIPERACILLIN/TAZO 3.375 GM in Normal Saline 50 ML IVPB (06:22)
[2021-05-17 07:06] LABS: Abs Immature Grans 0.02 10^3/uL (0.0-0.06); Absolute Basophil Count 0.03 10^3/uL (0.0-0.2); Absolute Eosinophil Count 0.14 10^3/uL (0.0-0.7); Absolute Lymphocyte Count 1.18 10^3/uL (1.2-3.4); Absolute Monocyte Count 0.39 10^3/uL (0.1-0.8); Absolute Neutrophil Count 2.66 10^3/uL (1.2-6.7); Basophils % 0.7; Eosinophils % 3.2; HCT 35.8 % (40.0-50.0); HGB 11.6 g/dL (13.5-17.5); Immature Grans % 0.5; Lymphocytes % 26.7; MCH 31.3 pg (27.0-33.0); MCHC 32.4 % (32.0-36.0); MCV 96.5 fL (80-95); MPV 9.8 fL (8.0-11.0); Monocytes % 8.8; Neutrophils % 60.1; Nucleated RBC 0 %; Platelet Count 135 10^3/uL (130-400); RBC 3.71 10^6/uL (4.36-5.78); RDW-SD 49.3 fL; WBC 4.42 10^3/uL (4.4-10.8)
[2021-05-17 07:19] LABS: ALT 19 U/L (16-63); AST 15 U/L (15-37); Alkaline Phosphatase 34 U/L (46-116); Anion Gap 10.8 mmol/L (3-11); BUN 22 mg/dL (7-18); Bilirubin, Total 0.2 mg/dL (0.2-1.0); CO2 23.2 mmol/L (21.0-32.0); CREATININE 1.4 mg/dL (0.70-1.30); Chloride 111 mmol/L (98-107); Glucose 98 mg/dL (74-106); Potassium 4.2 mmol/L (3.5-5.1); Sodium 145 mmol/L (136-145); Total Protein 6.3 g/dL (6.4-8.2)
[2021-05-17] MEDS: Apixaban 5 MG TAB 2.5 MG PO (08:39)
[2021-05-17] MEDS: Aspirin 81 MG CHEW PO (08:40)
[2021-05-17] MEDS: Esomeprazole 20 MG CAPCR PO (08:40)
[2021-05-17] MEDS: Finasteride 5 MG TAB PO (08:41)
[2021-05-17] MEDS: Folic Acid 1 MG TAB PO (08:41)
[2021-05-17] MEDS: Tamsulosin 0.4 MG CAPCR PO (08:41)
[2021-05-17] MEDS: Vitamins B Comp w/C TAB 1 TAB PO (08:41)
--- NOTE | 2021-05-17 09:04 | NUR.NOTE ---
RN assists patient in calling his significant other. Patient speaks to significant other and informs her he refuses to stay all day in the hospital.Nursing Note:
[2021-05-17] MEDS: methylPREDNISolone SUCC 125 MG VIAL 80 MG IVP (10:58)
[2021-05-17] MEDS: Furosemide 20 MG/2 ML VIAL IVP (11:00)
[2021-05-17] MEDS: Normal Saline Flush 10 ML SYR IVP (11:01)
[2021-05-17] MEDS: Furosemide 20 MG/2 ML VIAL (11:07)
--- NOTE | 2021-05-17 11:08 | NUR.NOTE ---
Patient is only given dose of 20mg of Furosemide IVP. not two as the MAR indicates.Nursing Note:
--- NOTE | 2021-05-17 11:10 | NUR.NOTE ---
Patient is given 80mg of Methylprednisolone IVP and not 125mg as previously ordered.Nursing Note:
--- NOTE | 2021-05-17 11:15 | NUR.NOTE ---
RN confirms with Hospitalist that only 80mg of Methylprednisolone is to be give and same was in fact given and not 125mg of Methlyprednisolone. RN also informs Hospitalist that shayla one dose of 20mg Lasix was given, and to disregard MAR that says two doses of 20mg of Lasix were given.Nursing Note:
--- NOTE | 2021-05-17 12:22 | W.PM.DS.N ---
Date of service: 05/17/21 Time of Service: 12:23 DS: Diagnosis Discharge Diagnosis (1) Alcohol intoxication: Status: Acute (2) PAF (paroxysmal atrial fibrillation): Status: Chronic (3) Hypertension: Status: Chronic (4) Cardiomyopathy: Status: Acute Discharge Plan Disposition Patient Disposition: HOME Condition: Good Discharge Details Reason For Visit: ASPIRATION PNEUMONITIS, HYPOXEMIA Admit Date/Time: 05/16/21 22:47 Admit Provider: Robert Samson Attending Provider: Robert Samson Primary Care Provider: Vielka Gellerh Hospital Course Hospital Course: He had an alcohol level greater than 400 but also had a 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 He is on Eliquis for stroke, aortic valve bioprosthetic replacement with a history of atrial fibrillation, MAZE procedure, presently in normal sinus rhythm. The patient was withdrawn and sleepy and obviously inebriated. He has no history of seizures prior to presentation to explain altered mental status such as postictal state and simply increased alcohol intake with a history of alcohol abuse. 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 He had a systolic blood pressure as low as 60 in the ED and on the medical floor. IV fluid resuscitation initiated. Beta-danni and diuretics were held. There was initial concern about possible aspiration pneumonia but radiology reading of chest xray was negative for specific infiltrate or consolidation. EKG with flattened P waves. NSR with rate of 72. There was evidence of pulmonary edema. He was afebrile and his WBC count was normal. He denied any cough other that an occasional one that chronically produces a small amount of clear phlegm. His BP normalized. He tolerated a diet. He was alert and oriented the following morning and ambulated to and from the commode. He will resum home meds. F/U with PCP in 1-2 weeks. Avoid overuse of alcohol. Home Meds and New Rx's Prescriptions: Continued torsemide 20 mg tablet 20 mg PO DAILY RF: 0 tamsulosin 0.4 mg capsule 0.4 mg PO DAILY RF: 0 vitamin B complex Tablet 1 tab PO DAILY RF: 0 folic acid 1 mg Tablet 1 mg PO DAILY RF: 0 finasteride 5 mg tablet 5 mg PO DAILY RF: 0 esomeprazole magnesium 20 mg capsule,delayed release(DR/EC) 20 mg PO BID RF: 0 omega-3 fatty acids-vitamin E 1,000 mg Capsule 1 cap PO BID RF: 0 cholecalciferol (vitamin D3) [D3-2000] 50 mcg (2,000 unit) Capsule 50 mcg PO DAILY RF: 0 Eliquis 5 mg tablet 2.5 mg PO BID RF: 0 metoprolol succinate 100 mg tablet extended release 24 hr 100 mg PO BID RF: 0 metoprolol succinate 50 mg tablet extended release 24 hr 50 mg PO DAILY AM RF: 0 Entresto 49-51 mg tablet 1 tab PO BID RF: 0 No Action aspirin 81 mg Tablet,Chewable 81 mg PO DAILY RF: 0 Discharge Instructions Instructions: Abuse of Alcohol (DC) Activity:: Activity as Tolerated Equipment/Supplies:: No Equipment Needed Diet:: Heart Healthy Discharge Orders Discharge Orders: Discharge Order (Routine); Ordered 05/17/21 Ordered By: Juan Antonio Rey DS: Summary Time Spent with Patient providing and/or coordinating discharge services: Greater than 30 minutes Status at Discharge Functional status at discharge: independent ambulation Overall status at discharge: patient is progressing back to baseline Mental Status: mental status grossly normal Speech and Movement: speech and movement normal Mood: congruent mood Affect: normal affect Exam Const General: cooperative and no acute distress Nutritional Appearance: overweight Orientation: alert and oriented x3 HENMT Head: normocephalic and atraumatic Eyes Sclera: sclerae normal Pupils: PERRL Resp Effort & Inspection: normal respiratory effort Auscultation: clear to auscultation bilaterally Cardio Rate: regular rate Rhythm: regular rhythm Heart Sounds: S1 normal and S2 normal GI Palpation: soft and nontender Skin General skin exam: no rashes or lesions noted Neuro General: no focal motor deficits Cognition: normal cognition Speech: speech normal Extrem General: no pedal edema and no calf tenderness Psych Mental Status: mental status grossly normal Speech and Movement: speech and movement normal Mood: congruent mood Affect: normal affect DS: Data Vitals/I&O Vitals and I&O: Vital Signs Temperature 37.0 C 05/17/21 08:51 Temperature Source Temporal Artery Scan 05/17/21 08:51 Pulse 87 05/17/21 08:51 Pulse Rhythm Irregular 05/17/21 08:56 Pulse 74 05/17/21 04:00 Respiratory Rate 23 05/17/21 08:51 Respiratory Effort Non-Labored 05/17/21 08:56 Respiratory Depth Normal 05/17/21 08:56 Respiratory Pattern Normal 05/17/21 08:56 Blood Pressure 134/93 H 05/17/21 08:51 Blood Pressure Mean 88 05/17/21 03:37 Blood Pressure Position Supine 05/17/21 00:15 Pulse Oximetry 23 L 05/17/21 08:51 Oxygen Delivery Method Room Air 05/17/21 08:51 Oxygen Flow Rate 0 05/17/21 08:51 Fraction of Inspired Oxygen (FIO2) 2 05/16/21 21:06 Pain Level 5 05/17/21 08:51 Comment 05/17/21 08:51 Intake & Output 05/16/21 05/17/21 05/17/21 23:59 11:59 23:59 Intake Total 1000 / 1000 2860.417 / 2860.417 Output Total 2200 / 2800 600 / 2800 Balance 1000 / 1000 660.417 / 60.417 -600 / 60.417 Weight 86 kg 87.5 kg Intake: IV 1000 / 1000 2860.417 / 2860.417 Output: Urine 2200 / 2800 600 / 2800 Other: Urine Color Yellow Pale Urine Appearance Clear Clear Urine Odor None None Comment catheter removed at this time. Voiding Methods Urinal Urinal Data Completed and Pending Labs on day of discharge: Labs from last 24 hours 05/17/21 05/17/21 05/17/21 06:25 06:25 02:06 WBC 4.42 RBC 3.71 L Hgb 11.6 L Hct 35.8 L MCV 96.5 H MCH 31.3 MCHC 32.4 RDW 14.0 Plt Count 135 MPV 9.8 Immature Gran % 0.5 Neutrophils % 60.1 Lymphocytes % 26.7 Monocytes % 8.8 Eosinophils % 3.2 Basophils % 0.7 Nucleated RBC % 0 Absolute Neutrophils 2.66 Absolute Lymphocytes 1.18 L Absolute Monocytes 0.39 Absolute Eosinophils 0.14 Absolute Basophils 0.03 ESR PT INR APTT D-Dimer VBG Lactate 1.2 Sodium 145 Potassium 4.2 Chloride 111 H Carbon Dioxide 23.2 Anion Gap 10.8 BUN 22 H Creatinine 1.4 H Estimated GFR/1.73 m2 50.40 Glucose 98 Calcium 8.0 L Magnesium Total Bilirubin 0.2 AST 15 ALT 19 Alkaline Phosphatase 34 L Troponin I C-Reactive Protein Total Protein 6.3 L Albumin 3.0 L Procalcitonin < 0.1 Urine Color Urine Clarity Urine pH Ur Specific [place] Urine Protein Urine Ketones Urine Blood Urine Nitrite Urine Bilirubin Urine Urobilinogen Ur Leukocyte Esterase Urine Glucose Urine Opiates Screen Urine Methadone Screen Ur Barbiturates Screen Ur Tricyclics Screen Ur Amphetamines Screen U Benzodiazepines Scrn Urine Cocaine Screen Ur THC Screen Ethyl Alcohol COVID-19 Source SARS-CoV-2 (PCR) 05/17/21 05/17/21 05/17/21 02:06 02:06 02:06 WBC RBC Hgb Hct MCV MCH MCHC RDW Plt Count MPV Immature Gran % Neutrophils % Lymphocytes % Monocytes % Eosinophils % Basophils % Nucleated RBC % Absolute Neutrophils Absolute Lymphocytes Absolute Monocytes Absolute Eosinophils Absolute Basophils ESR < 1 PT INR APTT D-Dimer 675 H VBG Lactate Sodium Potassium Chloride Carbon Dioxide Anion Gap BUN Creatinine Estimated GFR/1.73 m2 Glucose Calcium Magnesium Total Bilirubin AST ALT Alkaline Phosphatase Troponin I C-Reactive Protein < 0.05 Total Protein Albumin Procalcitonin Urine Color Urine Clarity Urine pH Ur Specific [place] Urine Protein Urine Ketones Urine Blood Urine Nitrite Urine Bilirubin Urine Urobilinogen Ur Leukocyte Esterase Urine Glucose Urine Opiates Screen Urine Methadone Screen Ur Barbiturates Screen Ur Tricyclics Screen Ur Amphetamines Screen U Benzodiazepines Scrn Urine Cocaine Screen Ur THC Screen Ethyl Alcohol COVID-19 Source SARS-CoV-2 (PCR) 05/17/21 05/16/21 05/16/21 02:06 23:10 21:55 WBC RBC Hgb Hct MCV MCH MCHC RDW Plt Count MPV Immature Gran % Neutrophils % Lymphocytes % Monocytes % Eosinophils % Basophils % Nucleated RBC % Absolute Neutrophils Absolute Lymphocytes Absolute Monocytes Absolute Eosinophils Absolute Basophils ESR PT INR APTT D-Dimer VBG Lactate Sodium Potassium Chloride Carbon Dioxide Anion Gap BUN Creatinine Estimated GFR/1.73 m2 Glucose Calcium Magnesium Total Bilirubin AST ALT Alkaline Phosphatase Troponin I < 0.05 C-Reactive Protein Total Protein Albumin Procalcitonin Urine Color Yellow Urine Clarity Clear Urine pH 6.0 Ur Specific [place] 1.015 Urine Protein Negative Urine Ketones Negative Urine Blood Negative Urine Nitrite Negative Urine Bilirubin Negative Urine Urobilinogen 0.2 Ur Leukocyte Esterase Negative Urine Glucose Negative Urine Opiates Screen Urine Methadone Screen Ur Barbiturates Screen Ur Tricyclics Screen Ur Amphetamines Screen U Benzodiazepines Scrn Urine Cocaine Screen Ur THC Screen Ethyl Alcohol COVID-19 Source Nasal/Nares SARS-CoV-2 (PCR) Negative 05/16/21 05/16/21 05/16/21 21:55 21:30 21:30 WBC RBC Hgb Hct MCV MCH MCHC RDW Plt Count MPV Immature Gran % Neutrophils % Lymphocytes % Monocytes % Eosinophils % Basophils % Nucleated RBC % Absolute Neutrophils Absolute Lymphocytes Absolute Monocytes Absolute Eosinophils Absolute Basophils ESR PT 11.0 INR 1.1 APTT 23.7 D-Dimer VBG Lactate Sodium Potassium Chloride Carbon Dioxide Anion Gap BUN Creatinine Estimated GFR/1.73 m2 Glucose Calcium Magnesium Total Bilirubin AST ALT Alkaline Phosphatase Troponin I C-Reactive Protein Total Protein Albumin Procalcitonin Urine Color Urine Clarity Urine pH Ur Specific [place] Urine Protein Urine Ketones Urine Blood Urine Nitrite Urine Bilirubin Urine Urobilinogen Ur Leukocyte Esterase Urine Glucose Urine Opiates Screen Negative Urine Methadone Screen Negative Ur Barbiturates Screen Negative Ur Tricyclics Screen Negative Ur Amphetamines Screen Negative U Benzodiazepines Scrn Negative Urine Cocaine Screen Negative Ur THC Screen Negative Ethyl Alcohol 431.6 COVID-19 Source SARS-CoV-2 (PCR) 05/16/21 05/16/21 21:30 21:30 WBC 5.16 RBC 3.89 L Hgb 12.3 L Hct 37.5 L MCV 96.4 H MCH 31.6 MCHC 32.8 RDW 13.8 Plt Count 170 MPV 10.3 Immature Gran % 0.6 Neutrophils % 59.0 Lymphocytes % 26.6 Monocytes % 10.1 Eosinophils % 2.9 Basophils % 0.8 Nucleated RBC % 0 Absolute Neutrophils 3.05 Absolute Lymphocytes 1.37 Absolute Monocytes 0.52 Absolute Eosinophils 0.15 Absolute Basophils 0.04 ESR PT INR APTT D-Dimer VBG Lactate Sodium 140 Potassium 4.4 Chloride 106 Carbon Dioxide 21.4 Anion Gap 12.6 H BUN 24 H Creatinine 1.5 H Estimated GFR/1.73 m2 46.54 Glucose 117 H Calcium 8.4 L Magnesium 2.0 Total Bilirubin 0.2 AST 20 ALT 20 Alkaline Phosphatase 36 L Troponin I C-Reactive Protein Total Protein 7.0 Albumin 3.5 Procalcitonin Urine Color Urine Clarity Urine pH Ur Specific [place] Urine Protein Urine Ketones Urine Blood Urine Nitrite Urine Bilirubin Urine Urobilinogen Ur Leukocyte Esterase Urine Glucose Urine Opiates Screen Urine Methadone Screen Ur Barbiturates Screen Ur Tricyclics Screen Ur Amphetamines Screen U Benzodiazepines Scrn Urine Cocaine Screen Ur THC Screen Ethyl Alcohol COVID-19 Source SARS-CoV-2 (PCR) 05/16/21 23:28 Blood Blood Culture - Pending 05/16/21 22:50 Blood Blood Culture - Pending Preliminary micro results at discharge 05/16/21 23:28 Blood Culture - Pending Blood 05/16/21 22:50 Blood Culture - Pending Blood [facility] Medical History Atherosclerotic heart disease Atrial fibrillation Bilateral claudication of lower limb Cardiomyopathy CHF (congestive heart failure) Chronic hepatitis C virus infection Acutely diagnosed but question of chronic infection since with positive viral load presently CVA (cerebral vascular accident) Decreased hearing of both ears Erectile dysfunction Essential hypertension GERD (gastroesophageal reflux disease) H/O mitral valve replacement Ischemic stroke Mixed hyperlipidemia Solitary pulmonary nodule Varicose veins of both lower extremities Surgical History H/O aortic valve replacement Social History Smoking/Tobacco Use Status: Never Smoking risk assessment performed?: Yes Alcohol Intake: current Alcohol Intake frequency: holidays/special occasions only Drug use: Never Substance use type: does not use Number of Children: 3 Do you feel safe in your relationship?: Yes
[2021-05-17] MEDS: Omega-3 Fatty Acids 1000 MG CAP PO (13:14)
--- NOTE | 2021-05-17 13:25 | NUR.NOTE ---
RN vivien's 18 guage in left AC. Site covered with gauze and paper tape.Nursing Note:
== END 2021-05-17 14:30 | disposition home or self-care (01) ==
LOC: ER 23:07 → ICU 05-17 00:07
PROVIDERS: Admitting Provider Family Medicine; Emergency Provider Emergency Medicine; PCP Nurse Practitioner Family; Visit Provider Family Medicine
DX: F10.929 Alcohol use, unspecified with intoxication, unspecified (principal); Y90.8 Blood alcohol level of 240 mg/100 ml or more; I48.0 Paroxysmal atrial fibrillation; Z79.01 Long term (current) use of anticoagulants; I25.5 Ischemic cardiomyopathy; I50.9 Heart failure, unspecified; I11.0 Hypertensive heart disease with heart failure; I95.9 Hypotension, unspecified; I69.354 Hemiplegia and hemiparesis following cerebral infarction affecting left non-dominant side; I25.10 Atherosclerotic heart disease of native coronary artery without angina pectoris; I73.9 Peripheral vascular disease, unspecified; B18.2 Chronic viral hepatitis C; E78.2 Mixed hyperlipidemia; K21.9 Gastro-esophageal reflux disease without esophagitis; R91.1 Solitary pulmonary nodule; Z95.2 Presence of prosthetic heart valve; Z20.822 Contact with and (suspected) exposure to COVID-19
CPT/HCPCS: 36415; 70496; 70498; 80053; 80307; 84145; 85652; 87040; 87635; 93005; 96361; 96365; 99285; 70450; 71045; 80320; 81003; 83605; 83735; 84484; 85025; 85379; 85610; 85730; 86140; 93010; 99217; G0378; J1941; J2543; J2930; J3490

== ENCOUNTER 2022-05-20 04:02 | Inpatient (IN) | payer MEDICARE, SELFPAY ==
[2022-05-20] VITALS (163 sets, daily range): BP systolic 76–128; BP diastolic 55–94; PULSE 80–139; RESP 8–30; TEMP 36.4–37.6; O2SAT 92–100; BMI 27.5
--- NOTE | 2022-05-20 04:08 | W.ED.GENAD ---
Discharge Plan Disposition Patient Disposition: [facility] INPATIENT Condition: Serious Discharge Details Clinical Impression: Acute upper gastrointestinal bleeding, Hypovolemia, Anticoagulated Admit Date/Time: 05/20/22 05:45 Admit Provider: Stefany Wood Attending Provider: Stefany Wood Primary Care Provider: Pricila Geller ED Provider: Solomon Mart Medical Decision Making This is a 67-year-old male with a past medical history of cerebrovascular accident in 2016, as well as an 2020, with chronic left-sided weakness, was on Eliquis for stroke and paroxysmal A. fib, with aortic valve bioprosthetic replacement, Maze procedure, coronary artery disease, congestive heart failure, mitral valve replacement presents today for evaluation of diarrhea and vomiting. Patient states that for the last 24 hours he has had multiple dark tarry stools, and over the last evening he has had multiple episodes of coffee-ground and dark emesis. He has been drinking over this past weekend, but otherwise does not drink daily. He did not take his Eliquis this evening. He admits to mild abdominal achiness, but denies any chest pain or shortness of breath. He does admit to weakness and fatigue. He denies any spicy foods or tomato based products. Denies taking any stomach antiacid medications but he does have omeprazole on his home medication list. No other complaints at this time. Exam demonstrates a slightly pale appearing male. Minimal achiness on palpation of the abdomen. No signs of an acute surgical abdomen on exam. Suspect upper GI bleed secondary to recent alcohol intake. We will start Protonix and omeprazole with Protonix drip. We will give Carafate. We will rehydrate, will type and screen, will monitor closely and reassess. 5:24 AM Laboratory work-up is returned, the patient does demonstrate a 2-3 point drop in his hemoglobin, currently at 9.2. Platelets are normal. Renal function stable, however BUN notably elevated at 92, which to me suggests a potential bleed above the ligament of Treitz and likely gastric in origin. Patient's heart rate has improved to the low 100s from the initial 120s to 130s on arrival. Blood pressure is stable in the low 100s systolic. We will page medicine and surgery for admission and EGD. We will continue to rehydrate with a second liter of normal saline. Kcentra will be given. 5:31 AM I did speak with Dr. Stefany Acosta. She agrees with the assessment and plan. Patient will be admitted to medicine. We are awaiting callback from surgery. I have extensively reviewed the treatment plan and discharge instructions with the patient. I have addressed all patient concerns at this time. The patient was made aware of what symptoms to monitor for that would warrant a return to the emergency department. Discussed the plan with the patient, they demonstrate verbal understanding and agreement with our assessment and plan at this time. The documentation in this chart was dictated using [employer] dictation software. Please excuse any dictation errors. 7:39 AM Unfortunately we did page surgery twice. They have still not called back. I did contact the hospitalist Dr. Rey and informed him of this. He is aware. [facility] General Date/Time Provider Initiated Documentation: 05/20/22 04:07. [facility] Narrative: This is a 67-year-old male with a past medical history of cerebrovascular accident in 2016, as well as an 2020, with chronic left-sided weakness, was on Eliquis for stroke and paroxysmal A. fib, with aortic valve bioprosthetic replacement, Maze procedure, coronary artery disease, congestive heart failure, mitral valve replacement presents today for evaluation of diarrhea and vomiting. Patient states that for the last 24 hours he has had multiple dark tarry stools, and over the last evening he has had multiple episodes of coffee-ground and dark emesis. He has been drinking over this past weekend, but otherwise does not drink daily. He did not take his Eliquis this evening. He admits to mild abdominal achiness, but denies any chest pain or shortness of breath. He does admit to weakness and fatigue. He denies any spicy foods or tomato based products. Denies taking any stomach antiacid medications but he does have omeprazole on his home medication list. No other complaints at this time. Related Data Home Medications Medication Instructions Recorded Confirmed torsemide 20 mg tablet 20 mg PO DAILY 03/02/19 05/20/22 metoprolol succinate 100 mg 100 mg PO BID 12/22/20 05/20/22 tablet,extended release 24 hr metoprolol succinate 50 mg 50 mg PO DAILY AM 12/22/20 05/20/22 tablet,extended release 24 hr sacubitril 49 mg-valsartan 51 mg 1 tab PO BID 12/22/20 05/20/22 tablet (Entresto) apixaban 5 mg tablet (Eliquis) 2.5 mg PO BID 03/24/21 05/20/22 aspirin 81 mg chewable tablet 81 mg PO DAILY 03/24/21 05/20/22 cholecalciferol (vitamin D3) 50 50 mcg PO DAILY 03/24/21 05/20/22 mcg (2,000 unit) capsule (D3-2000) esomeprazole magnesium 20 mg 20 mg PO BID 03/24/21 05/16/21 capsule,delayed release finasteride 5 mg tablet 5 mg PO DAILY 03/24/21 05/20/22 folic acid 1 mg tablet 1 mg PO DAILY 03/24/21 05/16/21 omega-3 fatty acids-vitamin E 1 cap PO BID 03/24/21 05/20/22 1,000 mg capsule tamsulosin 0.4 mg capsule 0.4 mg PO DAILY 03/24/21 05/20/22 vitamin B complex 1 tab PO DAILY 03/24/21 05/20/22 Allergies Allergy/AdvReac Type Severity Reaction Status Date / Time No Known Allergies Allergy Unverified 05/20/22 04:22 General SELVIN: 1 Review of Systems All systems reviewed & are unremarkable except as noted in HPI and below PFSH All Active Problems (Updated 05/20/22 @ 06:38 by Stefany Wood MD) Hemorrhagic shock (Acute) Acute blood loss anemia (Acute) Platelet dysfunction due to aspirin (Acute) Platelet dysfunction associated with uremia (Acute) THA (acute kidney injury) (Acute) Acute upper gastrointestinal bleeding (Acute) Hypovolemia (Acute) Anticoagulated (Acute) PAF (paroxysmal atrial fibrillation) (Chronic 01/11/18) Sensorineural hearing loss, bilateral (Acute 12/01/17) Systolic heart failure, ACC/AHA stage C (Acute 01/11/18) Advance directive on file (Acute) DVT prophylaxis (Acute) Hypertension (Chronic) Psoas hematoma, right, secondary to anticoagulant therapy (Acute) History of tonsillectomy (Chronic) H/O mitral valve replacement (Acute) H/O aortic valve replacement (Acute) CHF (congestive heart failure) (Chronic) CVA (cerebral vascular accident) (Chronic) Aortic regurgitation (Acute) Cardiomyopathy (Acute) Atrial fibrillation (Chronic) Code status needs review (Acute) Medical History (Updated 05/20/22 @ 06:38 by Stefany Wood MD) Abnormal auditory perception (12/01/17) Acute cerebrovascular accident (CVA) Acute on chronic congestive heart failure Alcohol intoxication Altered mental status Aspiration pneumonia Atherosclerotic heart disease Bilateral claudication of lower limb Chronic hepatitis C virus infection Acutely diagnosed but question of chronic infection since with positive viral load presently Decreased hearing of both ears Erectile dysfunction Essential hypertension GERD (gastroesophageal reflux disease) Hypoxia Ischemic stroke Mixed hyperlipidemia Solitary pulmonary nodule Varicose veins of both lower extremities Social History Smoking/Tobacco Use Status: Never Smoking risk assessment performed?: Yes Alcohol Intake: current Alcohol Intake frequency: holidays/special occasions only Drug use: Never Substance use type: does not use Number of Children: 3 Do you feel safe at home: Yes Do you feel safe in your relationship?: Yes Exam Narrative Exam Narrative: 1.Const: Well-nourished, Well-developed, appearing stated age 2.Eyes: PERRL, no conjunctival injection, and symmetrical lids. 3.ENT: Atraumatic external nose and ears. Moist MM. Neck: Symmetric, trachea midline, No thyromegaly. 4.CVS: +S1/S2, No murmurs or gallops. Peripheral pulses 2+ and equal in all extremities. Brisk capillary refill in all extremities. 5.RESP: Unlabored respiratory effort. Clear to auscultation bilaterally. No wheezes rales or rhonchi 6.GI: Soft, Nontender/Nondistended, No hepatosplenomegaly. No guarding or rebound. Minimal achiness throughout 7.MSK: Normocephalic/Atraumatic, Extremities w/o deformity or ttp No cyanosis or clubbing, Normal movement of all extremities 8.Skin: Slightly pale, warm, Dry. No rashes or lesions. 9.Neuro: assistant corporation counsel II-XII grossly intact. Sensation grossly intact, no focal neurologic deficits. 10.Psych: (AAO) x3. Appropriate mood and affect Critical Care Time Critical Care Time Critical Care Time: Yes Total Critical Care Time: 45 Attestation: Upon my evaluation, this patient had a high probability of imminent or life-threatening deterioration, which required my direct attention, intervention, and personal management. I have personally provided 45 minutes of critical care time exclusive of time spent on separately billable procedures. Time includes review of laboratory data, radiology results, discussion with consultants, and monitoring for potential decompensation. Interventions were performed as documented.
--- NOTE | 2022-05-20 04:15 | RT.EKG_ITS ---
APPROVED REPORT Exam: Resting ECG Reason for Exam: weakness Patient Location: E HR:124 bpm ECG Measurements Heart Rate 124 AXIS ND [id number] P [id number] QRSd 162 QRS -41 QT 389 T 54 QTc 559 Conclusion Atrial flutter with predominant 2:1 AV block...A-rate 254, multiple Ps Left bundle branch block...QRSd>120, broad/notched R PHysician: unchanged from prior ekg. negative for scarbossa
[2022-05-20] MEDS: Normal Saline 1,000 ML 1000 ML IV ×2 (04:35→05:30)
[2022-05-20] MEDS: FAMOTIDINE 20 MG in Normal Saline 100 ML 400 MG IVPB (04:37)
[2022-05-20] MEDS: Ondansetron 4 MG/2 ML VIAL IVP ×3 (04:39→13:13)
[2022-05-20 04:41] LABS: Abs Immature Grans 0.03 10^3/uL (0.0-0.06); Absolute Basophil Count 0.02 10^3/uL (0.0-0.2); Absolute Lymphocyte Count 0.67 10^3/uL (1.2-3.4); Absolute Monocyte Count 0.37 10^3/uL (0.1-0.8); Absolute Neutrophil Count 5.73 10^3/uL (1.2-6.7); Basophils % 0.3; HCT 27.6 % (40.0-50.0); HGB 9.2 g/dL (13.5-17.5); Immature Grans % 0.4; Lymphocytes % 9.8; MCH 32.2 pg (27.0-33.0); MCHC 33.3 % (32.0-36.0); MCV 97 fL (80-95); MPV 10.7 fL (8.0-11.0); Monocytes % 5.4; Neutrophils % 84.1; Platelet Count 146 10^3/uL (130-400); RBC 2.86 10^6/uL (4.36-5.78); RDW 14.7 % (11.8-14.1); RDW-SD 51.6 fL; WBC 6.82 10^3/uL (4.4-10.8)
[2022-05-20] MEDS: Pantoprazole 40 MG VIAL 80 MG IVP (04:41)
[2022-05-20] MEDS: Sucralfate 1 GM TAB PO ×3 (04:44→23:50)
[2022-05-20 04:55] LABS: INR 1.1 (0.9-1.1); PTT Activated 21.3 sec (21.0-27.5); Prothrombin Time 11.4 sec (9.3-11.0)
[2022-05-20] MEDS: PANTOPRAZOLE 80 MG in Normal Saline 100 ML 10 MG IV (04:55)
[2022-05-20 05:12] LABS: ALT 19 U/L (16-63); AST 15 U/L (15-37); Alkaline Phosphatase 36 U/L (46-116); Anion Gap 12.7 mmol/L (3-11); Bilirubin, Total 0.6 mg/dL (0.2-1.0); CO2 22.3 mmol/L (21.0-32.0); CREATININE 1.6 mg/dL (0.70-1.30); Calcium 8.2 mg/dL (8.5-10.1); Chloride 103 mmol/L (98-107); Estimated GFR 43.07 (mL/min/1.73m2); Glucose 146 mg/dL (74-106); Lipase 94 U/L (73-393); Magnesium 2.5 mg/dL (1.8-2.4); Potassium 4.1 mmol/L (3.5-5.1); Sodium 138 mmol/L (136-145); Total Protein 6.2 g/dL (6.4-8.2)
[2022-05-20 05:14] LABS: BUN 92 mg/dL (7-18)
[2022-05-20] MEDS: MORPHine 4 MG/ML SYR IVP (05:36)
[2022-05-20 05:59] LABS: Source Nasal/Nares
--- NOTE | 2022-05-20 06:09 | HPE_ITS ---
Date of service: 05/20/22 Time of Service: 06:10 Assessment and Plan Assessment and plan (1) Acute upper gastrointestinal bleeding: Status: Acute Assessment and plan: He does not have a history of cirrhotic liver disease and his prior imaging does not elude to this either. I will not give ceftriaxone or octreotide in this case. I will change the Protonix infusion to IV bid dosing. He has already re ceived carafate. Surgery has been called for consideration of EGD. He has been rescucitated with 2 L NS and given his low EF, I will not continue any more fluids. If he does need blood in the future, I would recommend chasing it with Lasix. - Protonix 40mg IV bid - s/p carafate - NPO - no further IVF - if resuscitation needed he should receive blood - s/p Kcentra - will order a one time dose of DDAVP for platelet dysfunction - surgical consultation called for EGD to isolate and potentially treat source of bleeding (2) Hemorrhagic shock: Status: Acute Assessment and plan: Hemorrhagic shock class II with tachycardia and normal blood pressures. This equates to the blood loss of 750-1500cc of blood loss, which has been replaced now by fluids. Will continue to monitor and resuscitate him with blood if needed. (3) Anticoagulated: Status: Acute Assessment and plan: He is on Eliquis for A. fib and 2 bioprosthetic valves (aortic and mitral). This will need to be held and I did recommend Kcentra for reversal given the GIB. Ideally he will have prompt EGD and treatment of bleeder (if able) so that the Eliquis can be restarted, particularly given the valves. - hold Eliquis for now (4) PAF (paroxysmal atrial fibrillation): Status: Chronic Assessment and plan: Due to the GIB and his borderline loow blood pressures his home medications will be held. - holding home meds (5) CHF (congestive heart failure): Status: Chronic Assessment and plan: Last echo found an EF of 35% so fluid resuscitation needs to be conservative. He received 2L NS in the ED, which is more than enough. If he needs blood moving forward it should be chased with Lasix if possible hemodynamically. Once he is stable and no longer bleeding, he will likely require diuresis. - conservative fluid resuscitation - will not give any more fluids at this time (6) THA (acute kidney injury): Status: Acute Assessment and plan: This seems most likely to be prerenal in the setting of hemorrhagic shock. He has already received fluids, so will simply monitor this with strict I/O's and labs. - s/p 2L IVF - insert Kerr for strict I/O - strict I/O's - Daily weights (7) Platelet dysfunction associated with uremia: Status: Acute Assessment and plan: His BUN is 92, in the setting of both an THA and a GIB. In addition he is on aspirin. It is highly unlikely that his has functional platelets at the moment, which certainly is worsening the bleeding. In the setting of hemorrhagic shock and this degree of likely platelet dysfunction I will give him DDAVP for plat elet dysfunction and to reverse his antiplatelet therapy. I will also order a platelet functional assay. - PFA - DDAVP - 0.3mcg/kg - approx 25mcg one time (8) Platelet dysfunction due to aspirin: Status: Acute Assessment and plan: As above (9) CVA (cerebral vascular accident): Status: Chronic (10) H/O aortic valve replacement: Status: Acute (11) H/O mitral valve replacement: Status: Acute (12) Acute blood loss anemia: Status: Acute History of Present Illness Narrative: This is a 67 yo man who have alcohol use disorder with a recent admission for alcohol intoxication, who is on Eliquis in the setting of A. fib, CVA, Maze procedure, bioprosthetic aortic valve, and CHF (EF of 35%) who is being admitted to the ICU for upper GI bleed. In the last 24 hours he has had dark tarry stools as well as hematemesis. He last took is Eliquis the evening of 05/19/22. On arrival he was tachycardic with soft blood pressures, but not overtly hypo tensive (which he was at his last visit). He was given IVF resuscitation, start on a Protonix drip as well as given sucralfate. I did recommend reversing his anticoagulation as Eliquis would be around likely for 72 hours. The ED has called surgery for consultation. He does have abdominal pain but denies shortness of breath. He is not having chest pain but is tired. Review of Systems All systems reviewed & are unremarkable except as noted in HPI and below PFSH All Active Problems (Updated 05/20/22 @ 06:38 by Stefany Wood MD) Hemorrhagic shock (Acute) Acute blood loss anemia (Acute) Platelet dysfunction due to aspirin (Acute) Platelet dysfunction associated with uremia (Acute) THA (acute kidney injury) (Acute) Acute upper gastrointestinal bleeding (Acute) Hypovolemia (Acute) Anticoagulated (Acute) PAF (paroxysmal atrial fibrillation) (Chronic 01/11/18) Sensorineural hearing loss, bilateral (Acute 12/01/17) Systolic heart failure, ACC/AHA stage C (Acute 01/11/18) Advance directive on file (Acute) DVT prophylaxis (Acute) Hypertension (Chronic) Psoas hematoma, right, secondary to anticoagulant therapy (Acute) History of tonsillectomy (Chronic) H/O mitral valve replacement (Acute) H/O aortic valve replacement (Acute) CHF (congestive heart failure) (Chronic) CVA (cerebral vascular accident) (Chronic) Aortic regurgitation (Acute) Cardiomyopathy (Acute) Atrial fibrillation (Chronic) Code status needs review (Acute) Medical History (Updated 05/20/22 @ 06:38 by Stefany Wood MD) Abnormal auditory perception (12/01/17) Acute cerebrovascular accident (CVA) Acute on chronic congestive heart failure Alcohol intoxication Altered mental status Aspiration pneumonia Atherosclerotic heart disease Bilateral claudication of lower limb Chronic hepatitis C virus infection Acutely diagnosed but question of chronic infection since with positive viral load presently Decreased hearing of both ears Erectile dysfunction Essential hypertension GERD (gastroesophageal reflux disease) Hypoxia Ischemic stroke Mixed hyperlipidemia Solitary pulmonary nodule Varicose veins of both lower extremities Social History Smoking/Tobacco Use Status: Never Smoking risk assessment performed?: Yes Alcohol Intake: current Alcohol Intake frequency: holidays/special occasions only Drug use: Never Substance use type: does not use Number of Children: 3 Do you feel safe at home: Yes Do you feel safe in your relationship?: Yes Meds Allergies and Home Medications Allergies Allergy/AdvReac Type Severity Reaction Status Date / Time No Known Allergies Allergy Unverified 05/20/22 04:22 Home Medications Medication Instructions Recorded Confirmed Type torsemide 20 mg tablet 20 mg PO DAILY 03/02/19 05/20/22 History metoprolol succinate 100 mg 100 mg PO BID 12/22/20 05/20/22 History tablet,extended release 24 hr metoprolol succinate 50 mg 50 mg PO DAILY AM 12/22/20 05/20/22 History tablet,extended release 24 hr sacubitril 49 mg-valsartan 51 mg 1 tab PO BID 12/22/20 05/20/22 History tablet (Entresto) apixaban 5 mg tablet (Eliquis) 2.5 mg PO BID 03/24/21 05/20/22 History aspirin 81 mg chewable tablet 81 mg PO DAILY 03/24/21 05/20/22 History cholecalciferol (vitamin D3) 50 50 mcg PO DAILY 03/24/21 05/20/22 History mcg (2,000 unit) capsule (D3-2000) esomeprazole magnesium 20 mg 20 mg PO BID 03/24/21 05/16/21 History capsule,delayed release finasteride 5 mg tablet 5 mg PO DAILY 03/24/21 05/20/22 History folic acid 1 mg tablet 1 mg PO DAILY 03/24/21 05/16/21 History omega-3 fatty acids-vitamin E 1 cap PO BID 03/24/21 05/20/22 History 1,000 mg capsule tamsulosin 0.4 mg capsule 0.4 mg PO DAILY 03/24/21 05/20/22 History vitamin B complex 1 tab PO DAILY 03/24/21 05/20/22 History Exam Narrative Exam Narrative: Gen: NAD, normal respiratory effort, well-nourished HENT: PERRL, Chest: No respiratory distress, normal appearance of chest, clear to auscultation bilaterally, no crackles or wheezes, normal inspiratory effort Heart: regular rate and rhythym, no murmurs, rubs or gallops Abdomen: Non-distended, soft, non tender Extremities: No clubbing, edema, cyanosis, rashes Neuro: AAOx3 , non focal Psych: cooperative, appropriate mental affect Results Labs Result diagrams: 05/20/22 04:30 05/20/22 04:30 Labs: Laboratory Results - last 24 hr 05/20/22 05/20/22 05/20/22 04:30 04:30 04:30 WBC 6.82 RBC 2.86 L Hgb 9.2 L Hct 27.6 L MCV 97 H MCH 32.2 MCHC 33.3 RDW 14.7 H Plt Count 146 MPV 10.7 Immature Gran % 0.4 Neutrophils % 84.1 Lymphocytes % 9.8 Monocytes % 5.4 Eosinophils % 0.0 Basophils % 0.3 Nucleated RBC % 0.0 Absolute Neutrophils 5.73 Absolute Lymphocytes 0.67 L Absolute Monocytes 0.37 Absolute Eosinophils 0.00 Absolute Basophils 0.02 PT INR APTT Sodium 138 Potassium 4.1 Chloride 103 Carbon Dioxide 22.3 Anion Gap 12.7 H BUN 92 H* Creatinine 1.6 H Estimated GFR/1.73 m2 43.07 Glucose 146 H Calcium 8.2 L Magnesium 2.5 H Total Bilirubin 0.6 AST 15 ALT 19 Alkaline Phosphatase 36 L Total Protein 6.2 L Albumin 3.0 L Lipase 94 COVID-19 Source Patient ABO/Rh A Negative Antibody Screen NEGATIVE 05/20/22 05/20/22 04:30 05:56 WBC RBC Hgb Hct MCV MCH MCHC RDW Plt Count MPV Immature Gran % Neutrophils % Lymphocytes % Monocytes % Eosinophils % Basophils % Nucleated RBC % Absolute Neutrophils Absolute Lymphocytes Absolute Monocytes Absolute Eosinophils Absolute Basophils PT 11.4 H INR 1.1 APTT 21.3 Sodium Potassium Chloride Carbon Dioxide Anion Gap BUN Creatinine Estimated GFR/1.73 m2 Glucose Calcium Magnesium Total Bilirubin AST ALT Alkaline Phosphatase Total Protein Albumin Lipase COVID-19 Source Nasal/Nares Patient ABO/Rh Antibody Screen Last Vital Signs Temp 36.4 C L 05/20/22 04:13 Pulse 111 H 05/20/22 05:31 Resp 24 05/20/22 05:32 BP 99/74 L 05/20/22 05:31 Pulse Ox 100 05/20/22 05:32 PAWSS Have you Been Recently Intoxicated or Drunk Within the Last 30 days?: Yes Have you Ever Experienced Previous Episodes of Alcohol Withdrawal?: No Have you ever Experienced Withdrawal Seizures?: No Have you ever Experienced Delirium Tremens(DT)s?: No Have you ever undergone Alcohol Rehabilitation Treatment (i.e, inpt ot outpatient treatment programs)?: No Have you ever Experienced Blackouts?: No Have you ever Combined Alcohol with other Downers within the last 90 days?: No Have you ever Combined Alcohol with any other Substance of Abuse during the last 90 days?: No Positive Blood Alcohol level on Presentation? [PCS.BAL]: No Evidence of Increased Autonomic Activity (i.e. HR>120, tremor, sweating, agitation, nausea)?: No Result: 1 Multi-Disciplinary Checklist Lines/Tubes CENTRAL LINE: no ARTERIAL LINE: no KERR: no ENDOTRACHEAL TUBE: no ICU Maintenance GLUCOSE 140-180mg/dL: yes NUTRITION AT GOAL: no, Reason/Intervention: NPO for possible EGD PRESSURE ULCER: no RESTRAINTS: no ANTIBIOTICS(if yes, consider Stewardship): No Social Issues FAMILY UPDATED: no, PT/OT: no, CODE STATUS: Full Prophylaxis DVT PROPHYLAXIS: no Reason/Intervention: active bleeding GI PROPHYLAXIS: yes, Indication: IV protonix bid
[2022-05-20] MEDS: THIAMINE 100 MG in Normal Saline 100 ML 200 MG IVPB (06:36)
[2022-05-20 06:53] LABS: COVID-19 PCR Negative (Negative)
--- OUTSIDE RECORDS SUMMARY | 2022-05-20 07:36 | XMS_ITS | Encounter Summary ---
:1955 Author Organization [facility] [place] [address] Care Team Providers Name Role Phone Duyen Pricila JOELLE Primary Care Provider Reason for Visit Consultation (Routine) - Specialty Diagnoses / Procedures Referred By Contact Refer red To Contact Gastroenterology Diagnoses Chronic cough Heartburn RUQ pain Fecal urgency Dysphagia, unspecified type History of hepatitis C HREM with pH impedance ON PPI for Chronic cough, heartburn, and dysphagia Edwin Grubbs APRN [facility] Procedures HREM with pH impedance ON PPI for Chronic cough, heartburn, [place] [address] [place] [address] Phone: Fax: Referral ID Status Reason Start Date Expiration Date Visits V isits Requested Authorized [id number] Consult, 12/10/2020 12/10/2021 1 1 Test & Treat Encounter Details Date Type Department Care Team Description 12/22/2021 Office Visit Gastroenterology at [facility] [place] [address] Social History Tobacco Use Types Packs/Day Years Used Date Former Smoker Smokeless Tobacco: Never Used Alcohol Use Standard Drinks/Week Comments Not Currently 0 (1 standard drink = 0.6 oz pure Former heavy daily user quit in alcohol) 2013 Alcohol Habits Answer Date Recorded How often do you have a drink Not asked containing alcohol? How many drinks containing alcohol do Not asked you have on a typical day when you are drinking? How often do you have six or more Not asked drinks on one occasion? Comment: Former heavy daily user quit in 08/30/202013 Sex Assigned at Date Recorded Not on file documented as of this encounter Progress Notes Melania Johnson RN - 12/22/2021 8:00 AM EST A description of the esophageal manometry procedure was provided to the patient. All questions were answered and the patient verbalized understanding. The HREM catheter was placed via the left naris without difficulty. The esophageal manometry procedure was performed and the catheter was removed. The patient tolerated the procedure well. Prior to placement of the impedance catheter, a description of the procedure was provided to patient. All questions were answered and the patient verbalized understanding. Written instructions were given to the patient as well. At 0830 the impedance catheter was placed in the left naris without difficulty. It was secured at 36cm with tape. This study is being performed off acid suppressants, which was confirmed by the patient. Jason Gr MD - 12/22/2021 8:00 AM EST Images from the original note were not included. HIGH-RESOLUTION ESOPHAGEAL MANOMETRY PROCEDURE NOTE Patient: Cong Khan Address: [address] [address] : 1955 Date of service: 12/22/2010 Indication: Heartburn Procedure: The patient arrived after an overnight fast. After verbal consent, a Cynthia motility catheter with 36 circumferential sensors on 1 cm spacing with impedance sensors was inserted transnasally after application of topical anesthesia to the nasal passage. The catheter was positioned so that at least 2 distal sensors were in the stomach and 2 proximal sensors were located above the UES. A 3-5 minute acclimation period was provided followed by 10 wet swallows of 5 cc of water while supine. Normal values while supine: Upper esophageal sphincter residual pressure: < 12 mmHg Upper esophageal sphincter relaxation duration: > 480 msec Distal contractile integral (DCI): > 450 and < 8,000 mmHg x cm x s Distal latency time: > 4.5 sec Integrated EGJ relaxation pressure (IRP): < 15 mmHg Normal EGJ resting pressure (respiratory mean): 15-34 mmHg Findings: - Upper Esophageal Sphincter: normal mean residual pressure and relaxation duration - Body: 0% of swallows failed. 0% of swallows had premature contractions with shortened distal latency time. The remaining 100% of swallows were peristaltic, includin% of swallows with hypercontractility, 0% of swallows with weak peristalsis, and 0% of swallows with large breaks (>5 cm) in the 20mmHg isocontour line. - Esophagogastric Junction: Midpoint located 46 cm from the nares, and proximal extent located at 44cm. 4cm hiatal hernia present. Normal resting pressure (mean 15 mmHg) and normal IRP in 100% of swallows (median 1.6 mmHg). - Bolus transit: Liquid boluses cleared in 80% of swallows. - Multiple rapid swallows: Peristaltic reserve: intact (ratio of post-multiple rapid swallow DCI to median DCI on 10 supine swallows is >=1.0) Deglutitive inhibition: normal deglutitive inhibition (DCI <100 mmHg*s*cm) during the maneuver Integrated relaxation pressure: 0 mmHg (normal <12 mmHg) - Rapid drink challenge: Esophageal body contractility: normal deglutitive inhibition (DCI <100 mmHg*s*cm) during the maneuver Integrated relaxation pressure: 0 mmHg (normal <12 mmHg) C Developer swallow: Impressions based on Lund Classification v4.0: No evidence of a clinically significant disorder of peristalsis or EGJ outflow obstruction. *These findings assume that mechanical obstruction has been ruled out. Jason Cancino MD, FRCPC Section of Gastroenterology and Hepatology [facility] [place] [address] V: [phone] F: [phone] CC/EC: Pricila Geller APRN [facility] [place] [address] Reji Schumacher MD - 12/22/2021 8:00 AM EST Catheter-based pH/impedance procedure report Patient: Cong Khan Address: [address] [address] : 1955 Referring provider: Edwin Grubbs Date of service: 12/25/21 Indication: heartburn Procedure: The catheter was placed transnasally after topical anesthetic (1cc of 4% aerosol lidocaine and 1cc of 2% viscous lidocaine), with the esophageal pH sensor located 32cm from the nares, 5 cm above the manometrically identified lower esophageal sphincter. A gastric pH sensor was located 10 cm distal to the top of the lower esophageal sphincter. The patient was instructed to keep a diary of symptoms, andreturned the next day for removal of the probe. Testing performed OFF acid-suppressive therapy (ordered ON medication but patient was OFF at time oftesting) Analysis Duration Total (HH:MM): 24:00 Analysis Duration Upright (HH:MM): 14:01 Analysis Duration Supine (HH:MM): 9:59 Acid exposure time (AET): Total distal esophageal acid exposure time: 10.8 % of testing period Upright distal esophageal acid exposure time: 18.3 % of testing period Supine distal esophageal acid exposure time: 1.1 % of testing period DeMeester Score: 34.0 (normal: <14.7) Normal values for acid exposure time (AET) defined as the % of time with a pH <4 Conclusive evidence for pathologic reflux: AET >7.0% Borderline or inconclusive evidence for pathologic reflux: AET 4.0% to 7.0% Evidence against pathologic reflux: AET <4.0% Reflux symptom association (RSA): Symptom Index (SI) Symptom (# of occurrences) Acid Weak acid Nonacid All reflux Heartburn and cough (10) 40% 0% 0% 40% Symptom Association Probability (SAP) Symptom (# of occurrences) Acid Weak acid Nonacid All reflux Heartburn and cough (10) 91.9% 0% 0% 88.6% Interpretation of reflux symptom association (RSA) Positive association: Symptom Associated Probability [SAP] > 95% AND Symptom Index [SI] > 50% No convincing association: Symptom Associated Probability [SAP] > 95% OR Symptom Index [SI] > 50% No evidence of association: Symptom Associated Probability [SAP] < 95% AND Symptom Index [SI] < 50% Number of reflux events by impedance: 47 total (normal < 80) and 35 acidic (normal < 80) and 12 weakly acidic (normal < 80) Impression based on the Valdez classification: Conclusive evidence for pathologic acid reflux tested OFF medication No evidence of association between reflux and recorded symptoms. No evidence of elevated reflux burden measured by impedance. This study is consistent with non-reflux causes of symptoms independent from established GERD. References: 1) Modern diagnosis of GERD: the Valdez Consensus. Gut. 2018 May; 67(7): 3476-7755. 2) Validation of the Valdez classification for GORD diagnosis: acid exposure time assessed by prolonged wireless pH monitoring in healthy controls and patients with erosive oesophagitis. Gut. 2020. doi 10.1136/ekteql-7019-653495. Reji Schumacher MD Section of Gastroenterology and Hepatology [facility] [place] [address] V: [phone] F: [phone] CC/EC: Pricila Geller APRN [address] [place] [address] [place] [address] documented in this encounter Plan of Treatment Upcoming Encounters Date Type Specialty Care Team Description 06/16/2022 Laboratory Appointment Lab 06/16/2022 Office Visit Cardiology Gianna Lorenzana PA [facility] Cardiology Dept [place], [place] [address] (Wo rk) Scheduled Procedures Name Priority Associated Diagnoses Date/Time EGD, UPPER GI ENDOSCOPY Chronic cough Heartburn RUQ pain Fecal urgency Dysphagia, unspecifi ed type History of hepatitis C COLONOSCOPY, DIAGNOSTIC Chronic cough Heartburn RUQ pain Fecal urgency Dysphagia, unspecifi ed type History of hepatitis C Scheduled Referrals Name Type Priority Associated Order Schedule Diagnoses Referral to Outpatient Routine Chronic cough Ordered: Gastroenterology Referral Heartburn 12/10/2020 RUQ pain Fecal urgency Dysphagia, unspecified type History of hepatitis C documented as of this encounter Goals Goal Patient Goal Associated Recent Patient-Stated? Author Type Problems Progress DH Home Medication Patient No Daniela ward, Compliance and Facing Tad A, Understanding Action Plan [facility] Note: Formatting of this note might be d ifferent from the original. Maintain 100% adherence to Entresto twic e daily regimen documented as of this encounter Visit Diagnoses Diagnosis Heartburn documented in this encounter Care Teams Wood Tile Installer Relationship Specialty Start Date End Date Pricila Geller APRN PCP - General Family Medicine 11/24/18 [address] [place] [address] documented as of this encounter
--- OUTSIDE RECORDS SUMMARY | 2022-05-20 07:36 | XMS_ITS | Encounter Summary ---
:1955 Author Organization [facility] [place] [address] Care Team Providers Name Role Phone Pricila Geller APRN Primary Care Provider Reason for Visit Reason Onset Date Comments Medication Refill 03/09/2022 Entresto 49-51 mg Encounter Details Date Type Department Care Team Description 03/09/2022 Refill Cardiology at [facility] Avelino Whelan, Medication Refill [facility] Lali Garland MD (Entresto 49-51 mg) [facility] [place] [address] [place] [id number] [phone] (Wo rk) Social History Tobacco Use Types Packs/Day Years [...] on file documented as of this encounter Miscellaneous Notes Telephone Encounter - Prisca Russ RN - 03/11/2022 6:24 PM EDT The following message received form [facility]: We received the Entresto prescription for re-auth purposes so the patient was able to re-enroll in cpht assistance. However, the patient's formulary changed as of November 21, 2021 and this is now a tier three medication that no longer requires a PA. The medication currently runs with a cost of $384.20 ($225.20 towards deductible + $129 co-pay). Please let me know if you have any questions. Thank you, [facility] Message forwarded to the [facility] staff to contact [facility] so they can process the Entresto application. Telephone Encounter - Prisca Russ RN - 03/09/2022 9:52 AM EDT Jina from [facility] left VM on the nurse triage line requesting PA determination so they can go forward with assisting the pt with the Entresto, if needed. Contact number Hernan [phone] Call placed to pt to confirm the current dose of Entresto he is taking. Pt reports that he is doing well on taking 1/2 tab of the 97-103 mg bid and would like to continue on the lower dose, if possible. He has about 3 weeks of the current dose Call placed to Rex in the Specialty pharmacy who reports that the last PA was good until November 2021. documented in this encounter Plan of Treatment Upcoming Encounters Date Type Specialty Care Team Description 06/16/2022 Laboratory Appointment Lab 06/16/2022 Office Visit Cardiology Gianna Lorenzana PA [facility] Cardiology Dept [place], [place] [address] (Wo rk) Scheduled Procedures Name Priority Associated Diagnoses Date/Time EGD, UPPER GI ENDOSCOPY Chronic cough Heartburn RUQ pain Fecal urgency Dysphagia, unspecifi ed type History of hepatitis C COLONOSCOPY, DIAGNOSTIC Chronic cough Heartburn RUQ pain Fecal urgency Dysphagia, unspecifi ed type History of hepatitis C documented as of this encounter Goals Goal Patient Goal Associated Recent Patient-Stated? Author Type Problems Progress Home Medication Patient No Daniela ward, Compliance and Facing Tad A, Understanding Action Plan [facility] Note: Formatting of this note might be d ifferent from the original. Maintain 100% adherence to Entresto twic e daily regimen documented as of this encounter Visit Diagnoses Diagnosis Chronic systolic heart failure documented in this encounter Care Teams Auto Clutch Specialist Relationship Specialty Start Date End Date Pricila Geller APRN PCP - General Family Medicine 11/24/18 [address] [place] [address] documented as of this encounter
--- OUTSIDE RECORDS SUMMARY | 2022-05-20 07:36 | XMS_ITS | Encounter Summary ---
:1955 Author Organization [facility] [place] [address] Care Team Providers Name Role Phone BenjamínPricila marcus APRN Primary Care Provider Encounter Details Date Type Department Care Team Description 12/02/2021 Office Visit Cardiology at [facility] Gianna Lorenzana, Chronic systolic heart failu re; [facility] PA Atrial fibrillation, [place] [address] Cardiology Dept [phone] [place], [place] [address] Social History Tobacco Use Types Packs/Day Years [...] on file documented as of this encounter Last Filed Vital Signs Vital Sign Reading Time Taken Comments Blood Pressure 105/74 12/02/2021 1:09 PM EST Pulse 76 12/02/2021 1:09 PM EST Temperature - - Respiratory Rate - - Oxygen Saturation 97% 12/02/2021 1:09 PM EST Inhaled Oxygen Concentration - - Weight 80.3 kg (177 lb) 12/02/2021 1:09 PM EST Height 175.3 cm (5' 9) 12/02/2021 1:09 PM EST Body Mass Index 26.14 12/02/2021 1:09 PM EST documented in this encounter Progress Notes Gianna Lorenzana PA - 12/02/2021 1:00 PM EST [facility] Note Name: Cong Khan Date: 12/04/2021 Chief Complaint: HFimpEF, s/p AV/MV replacements History of Present Illness Cong Khan is a 66 y.o. 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 Does admit to a rare glass of wine Reports fatigue. Feels that he is getting a good nights sleep. Will nap in the afternoon. Breathing ok. His shortness of breath is at his usual baseline. 1 flight of stairs and walking cause need to stop and catch breath but again, unchanged. Low normal blood pressure. Average 100-120 systolic. HR usually 70-80 bpm. No chest pain, palpitations, lightheadedness, dizziness, pre-syncope or syncope. May be fatigued since increasing the dose of Entresto. Review of Systems All other 12 point review of systems negative except as noted above. Past Medical History Patient Active Problem List Diagnosis ??? Acute systolic congestive heart failure Prior echo from [facility] 10/2015: EF 40-45%, mean aortic valve gradient 22mmHg [place] echo Aug 2017: EF 20-25%, DVI 0.35, ascending aorta 4.2cm, aortic arch 5.3cm Current echo [facility] 08/31/17:EF 31%, septum paradoxical motion (dys-synchrony present), mod to severe LVH, not dilated by linear diameter, severe LAE mod reduced RV function, mod pHTN. Mean trans aortic gradient in mid 20's, DVI 0.22, transmitral gradient 6 at 95 bpm ??? Atrial fibrillation ??? Stroke Right hemispheric, left hand/arm symptoms. Presumably cardioemoblic in patient with valvular afib who had discontinued warfarin. ??? Valvular disease - mitral valve prolapse, repair ([place], [place]) 11/07/09: P2 resection, sliding annuloplasty, placement of #38 Future band. - [facility] 12/01/10 : mitral valve replacement with a #33 EPIC IC procedure, tricuspid valve repair with a #32 MC3 ring, MAZE - AVR 2013. ([facility]): no records available. ??? Aneurysm of aortic arch Noted on echo at [facility] 5.3cm (08/30/2017) ??? AMS (altered mental status) ??? Chronic cough Added automatically from request for surgery [id number] ??? Heartburn Added automatically from request for surgery [id number] ??? RUQ pain Added automatically from request for surgery [id number] ??? Fecal urgency Added automatically from request for surgery [id number] ??? Dysphagia Added automatically from request for surgery [id number] ??? History of hepatitis C Added automatically from request for surgery [id number] ??? Hypertension ??? H/O mitral valve replacement with tissue graft ??? H/O aortic valve replacement with porcine valve Full Medication List Outpatient Medications Marked as Taking for the 12/02/21 encounter (Office Visit) with Gianna Lorenzana PA Medication Sig Dispense Refill ??? Eliquis 2.5 mg Tablet TAKE ONE TABLET BY MOUTH TWICE A DAY 180 tablet 3 ??? sacubitriL-valsartan (Entresto) 97-103 mg Tablet tablet Take 1 tablet by mouth 2 times daily. 60tablet 3 ??? torsemide (Demadex) 10 mg Tablet Take 1 tablet by mouth daily. (Patient taking differently: Take20 mg by mouth daily.) 90 tablet 3 ??? cholecalciferol, Vitamin D3, (D3-2000) 50 mcg (2,000 unit) Capsule Take by mouth. ??? fish oil-omega-3 fatty acids 1,000 mg Capsule Take 1,200 mg by mouth daily. ??? b complex vitamins Capsule Take 1 capsule by mouth daily. ??? NETTLE LEAF ORAL Take by mouth. ??? folic acid (Folvite) 1 mg Tablet Take 1 mg by mouth daily. ??? metoprolol succinate XL (Toprol-XL) 100 mg Tablet Sustained Release 24 hr Take 1 tablet by mouth2 times daily. Take extra 50 mg tab in am for total 150 mg in am & 100 mg in pm. 180 tablet 3 ??? metoprolol succinate XL (Toprol-XL) 50 mg Tablet Sustained Release 24 hr Take 1 tablet by mouth daily. Take with 100 mg tab in in am for total of 150 mg in am. 90 tablet 3 ??? tamsulosin (FLOMAX) 0.4 mg Capsule 0.4 mg daily. 11 ??? finasteride (PROSCAR) 5 mg Tablet 5 mg daily. 11 ??? aspirin 81 mg Tablet, Chewable Take 81 mg by mouth daily. 30 tablet 3 Allergies No Known Allergies Social & Family History Very involved n meals on wheels Practicing Zoroastrianism TOB: Social History Tobacco Use Smoking Status Former Smoker Smokeless Tobacco Never Used ETOH: Social History Substance and Sexual Activity Alcohol Use Not Currently Comment: Former heavy daily user quit in 201312/04/2021 Illicits: Social History Substance and Sexual Activity Drug Use Not Currently Comment: Former cocaine user FHx: Family History Problem Relation Age of Onset ??? Emphysema Mother ??? Hypertension Mother ??? Alcohol Use Disorder Father ??? Aneurysm Father ??? Hypertension Father ??? Substance Use Disorder Brother ??? Colorectal Cancer Neg Hx ??? Inflammatory Bowel Disease Neg Hx ??? Celiac Disease Neg Hx ??? Esophageal Cancer Neg Hx Physical Exam Vitals: 12/02/21 1309 BP: 105/74 Pulse: 76 SpO2: 97% Weight: 80.3 kg (177 lb) Height: 175.3 cm (5' 9) General: NAD Neck: JVP visible at the clavicle Cardiac: Regular s1s2 with audible ectopic beats; 2/6 systolic murmur Lungs: CTAB Abdomen: Soft NT/ND Extremities: WWP w/ no significant peripheral edema Relevant Labs Recent Results (from the past 72 hour(s)) Echocardiogram Transthoracic([facility] or [facility]) Result Value Ref Range EF 50 Comprehensive metabolic panel (non-fasting) Result Value Ref Range Glucose Lvl 105 65 - 199 mg/dL BUN 21 (H) 10 - 20 mg/dL Creatinine 1.73 (H) 0.80 - 1.50 mg/dL Sodium 137 135 - 145 mmol/L Potassium 4.3 3.5 - 5.0 mmol/L Chloride 101 98 - 107 mmol/L CO2 25 22 - 31 mmol/L Anion Gap 11 5 - 15 mmol/L Calcium 9.4 8.5 - 10.5 mg/dL Total Protein 7.0 6.1 - 8.0 g/dL Albumin 4.3 3.2 - 5.2 g/dL AST 16 0 - 39 unit/L ALT 11 0 - 55 unit/L Alk Phos 44 40 - 130 unit/L Total Bilirubin 0.4 0.2 - 1.3 mg/dL Estimated GFR 40 (L) >=60 mL/min/1.73 m?? pro-Brain Natriuretic Peptide Result Value Ref Range ProBNP 983 (H) <=124 pg/mL EKG 12 Lead Result Value Ref Range Ventricular rate 77 BPM Atrial Rate 77 BPM P-R Interval 164 ms QRS Duration 160 ms Q-T Interval 432 ms QTC Calculated (Bezet) 488 ms Calculated R [place] -30 degrees Calculated T [place] -29 degrees INTERPRETATION Sinus rhythm Occasional Premature ventricular complexes Left axis deviation Left bundle branch block Abnormal ECG When compared with ECG of 15-JUN-2021 15:03, No significant change was found Confirmed by MD Vincent, Eneida ([id number]) on 12/02/2021 3:59:20 PM Relevant CardiacStudies ZIO 04/10: 100% burden of atrial fibrillation with well-controlled ventricular rates, majority of symptomatic events correspond to atrial fibrillation with PVCs and ventricular bigeminy, 17 pauses occurred, longest 3.8 seconds, all asymptomatic. PVC burden 3.1%. TTE 04/10: LV normal in size with basal septal hypertrophy, no LVOT obstruction, EF 52%, RV mildly dilated with normal function, left atrium severely dilated, right atrium moderately dilated. Porcine bioprosthetic aortic valve with a mean gradient of 22, DOI 0.25. Bioprosthetic mitral valve with a meangradient of 6 mmHg at 60 bpm. Mild dilatation of the aortic root at 3.9 cm and moderate dilatation of the ascending aorta at 4.5 cm. PASP 27 mmHg. TTE 12/12: SUMMARY: 1. The left ventricular chamber size is normal. Moderate concentric left ventricular hypertrophy is observed. Global left ventricular systolic function is mildly reduced. The quantitative left ventricular ejection fraction by biplane Walker's method is 50% (in short axis views appears more around 40% by visual estimation though). There is diffuse hypokinesis present. 2. The left atrium is severely dilated. (99 ml/m2) 3. The right ventricle is mildly dilated. Right ventricular global systolic function is mildly reduced. (RV free wall strain -10%). The estimated pulmonary artery systolic pressure is 25 mmHg with estimated RA pressure of 3 mmHg. 4. The right atrium is mildly dilated. 5. A porcine bio-prosthetic aortic valve is present. The mean trans-valvular gradient across the aortic valve is 14 mmHg. The peak instantaneous trans-valvular gradient across the aortic valve is 27 mmHg, DOI (VTI) 0.39. Mild (1+/4+) aortic valve prosthesis regurgitation is present. 6. A 32 mm bio-prosthetic mitral valve is present. The mean gradient across the mitral valve is 3 mmHg at HR 76 bpm. There is a trace amount of mitral prosthesis regurgitation. 7. The tricuspid valve is s/p repair, leaflets are mildly thickened. There is trace tricuspid regurgitation present. 8. There is mild dilatation of the aortic root (4.0 cm). There is moderate dilatation of the ascending aorta (4.5 cm). 9. Compared to 03/25/2021 no significant changes, however visually, left ventricular systolic function appears mildly reduced. Assessment/Plan: Cong Khan is a 66 y.o. 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 Overall, from a cardiac standpoint, he appears stable without signs of HF exacerbation. He is reporting fatigue that may be correlating with increased Entresto dosing. No change in EF by updated TTE today. BP stable, HR 77, occasional PVCs on EKG today. #HFimpEF: d/t valve disease, raza EF 31% in 09/06, recovered 52% in 04/10 with GDMT, today 50%, NYHA2, volume near euvolemic - Beta danni: Metop succ 150mg qAM, 100mg qPM - RASi: Entresto 97/103mg BID - trial of reduced dose Entresto to / tab of 97/103 mg - MRA: EF recovered p/t initiation - SGLT-2: EF recovered p/t initiation - Diuretic: Torsemide 20 mg QD - ICD: EF recovered prior to placement #Afib: EKG - SR with occ PVCs and left bundle branch block DCCV/Ablation: None Rate Control: Metoprolol succinate 150 mg in the morning and 100 mg in the evening Rhythm Control: None at this time, pending PVC burden, may need to consider antiarrhythmic in the future. Anticoagulation: Apixiban 2.5 mg BID - this was a dose reduction 2 bleeding #HTN: - Complication(s): None to date - Antihypertensive Regimen: Metoprolol succinate, Entresto as above - ASA 81mg QD #Aortic Aneurysm: Mild -root 4.0 cm and ascending aorta 4.5 cm in 11/2021 - Metoprolol succinate - Entresto - TTE monitoring RTC in 6 months with labs LUIS ALFREDO Constantino-C 12/04/2021, 11:59 AM documented in this encounter Plan of Treatment Upcoming Encounters Date Type Specialty Care Team Description 06/16/2022 Laboratory Appointment Lab 06/16/2022 Office Visit Cardiology Gianna Lorenzana PA [facility] Cardiology Dept [place], [place] [address] (Wo rk) Scheduled Procedures Name [...] and Facing Tad A, Understanding Action Plan [facility] Note: Formatting of this note might be d ifferent from the original. Maintain 100% adherence to Entresto twic e daily regimen documented as of this encounter Procedures Procedure Name Priority Date/Time Associated Diagnosis Comme nts EKG 12-LEAD Routine 12/02/2021 1:56 PM Atrial fibrillation, R esults for this EST unspecified type procedure a re in the results section. documented in this encounter Results EKG 12 Lead (12/02/2021 1:56 PM EST) Component Value Ref Range Test Analysis Performed Pathologis t Method Time At Signature Ventricular rate 77 BPM MUSE SYSTEM Atrial Rate 77 BPM MUSE SYSTEM P-R Interval 164 ms MUSE SYSTEM QRS Duration 160 ms MUSE SYSTEM Q-T Interval 432 ms MUSE SYSTEM QTC Calculated 488 ms MUSE SYSTEM (Bezet) Calculated R [place] -30 degrees MUSE SYSTEM Calculated T [place] -29 degrees MUSE SYSTEM INTERPRETATION Sinus rhythm Occasional Premature ventricular complexe s MUSE SYSTEM Left axis deviation Left bundle branch block Abnormal ECG When compared with ECG of 15-JUN-2021 15:03, No significant change was found Confirmed by MD Vincent, Eneida ([id number]) on 12/02/2021 3:59:20 PM Specimen Anatomical Collection Method Collection Time Receive d Time (Source) Location / / Volume Laterality 12/02/2021 1:56 PM 3:59 EST PM EST Lali Whelan MD ECG ORDERABLES Performing Organization Address City/State/ZIP Code Phon e Number MUSE SYSTEM (ABNORMAL) Comprehensive metabolic panel (non-fasting) (12/02/2021 12:32 PM EST) P athologist Signature Glucose Lvl 105 65 - 199 [facility] mg/dL [facility] Comment: Diabetes: >=200 mg/dL plus symp toms BUN 21 (H) 10 - 20 mg/dL [facility] Creatinine 1.73 (H) 0.80 - 1.50 mg/dL [facility] Sodium 137 135 - 145 mmol/L [facility] Potassium 4.3 3.5 - 5.0 mmol/L [facility] Comment: Please note: ??Patients with WBC >100,00 0 may have falsely elevated Potassium levels. ??For accurate Potassium quantif ication in these patients send serum separator tube (gold top) for subsequent determinations. ??Contact the Clinical Chemistry Laboratory if there are any qu estions. Chloride 101 98 - 107 mmol/L [facility] CO2 25 22 - 31 mmol/L [facility] Anion Gap 11 5 - 15 mmol/L [facility] Calcium 9.4 8.5 - 10.5 mg/dL [facility] Total Protein 7.0 6.1 - 8.0 g/dL [facility] Albumin 4.3 3.2 - 5.2 g/dL [facility] AST 16 0 - 39 unit/L [facility] ALT 11 0 - 55 unit/L [facility] Alk Phos 44 40 - 130 unit/L [facility] Total Bilirubin 0.4 0.2 - 1.3 mg/dL [facility] Estimated GFR 40 (L) >=60 mL/min/1.73 m?? [facility] Comment: This patient? s estimated glomerular filtration rate (eGFR) is between 40 mL/min/1.73 m2 (patients with less muscl e mass per kg body weight) and 46 mL/min/1.73 m2 (patients with more muscl e mass per kg body weight) as determined by the CKD-EPI equation. Asse ssment of eGFR is not appropriate when creatinine concentrations are rapidly ch anging. For clinical decisions where creatinine clearance will affect therapy , a 24-hour urine creatinine clearance may be advised. Assignment of CKD stage 1 - 5 for patien ts with an eGFR near the transition point between stages may be based on cli nical assessment of muscle mass and symptoms in addition to eGFR. Specimen Anatomical Collection Method Collection Time Receive d Time (Source) Location / / Volume Laterality Blood 12/02/2021 12:32 12/02/2021 PM EST 12:42 PM EST Resulting Agency Comment Spec In Lab Lali Whelan MD CHEMISTRY ORDERABLES Performing Organization Address City/State/[place] [address] (ABNORMAL) pro-Brain Natriuretic Peptide (12/02/2021 12:32 PM EST) P athologist Signature ProBNP 983 (H) <=124 pg/mL [facility] Specimen Anatomical Collection Method Collection Time Receive d Time (Source) Location / / Volume Laterality Blood 12/02/2021 12:32 12/02/2021 PM EST 12:42 PM EST Resulting Agency Comment Spec In Lab Lali Whelan MD CHEMISTRY ORDERABLES Performing Organization Address City/State/[place] [address] documented in this encounter Visit Diagnoses Diagnosis Chronic systolic heart failure Atrial fibrillation, unspecified type documented in this encounter Care Teams 3Rd Grade Teacher Relationship Specialty Start Date End Date Pricila Geller APRN PCP - General Family Medicine 11/24/18 [address] [place] [address] documented as of this encounter
--- OUTSIDE RECORDS SUMMARY | 2022-05-20 07:36 | XMS_ITS | Encounter Summary ---
:1955 Author Organization [facility] [place] [facility] Address [address] [place] [address] Care Team Providers Name Role Phone Pricila Geller APRN Primary Care Provider Reason for Visit Reason Comments Prior Authorization Entresto 49-51mg tablets Encounter Details Date Type Department Care Team Description 03/10/2022 Specialty Pharmacy Pharmacy at [facility], Prior Authorization [facility] Avril (Entresto 49-51mg Drive tablets ) [place] [address] Social History Tobacco Use Types Packs/Day Years [...] documented as of this encounter Progress Notes Avril Hammer - 03/10/2022 1:49 PM EDT [facility], Prior Authorization Approval Medication Name: ENTRESTO 49 MG-51 MG TABLET Medication ID: [id number] Approval Dates: 12/08/2020 to 12/08/2021 Insurance requirements/notes: None Other Notes: [id number] PA originally approved through 12/08/2021 with extension granted through 11/20/22. Case/Reference #: [id number] Approval notification Received via: Copay: $384.20 Copay assistance: Patient Assistance Referral Copay Notes: Patient will be re-enrolling in oracle identity management consultant assistance and if approved, this will reduce the cost to $0. Insurance mandated Pharmacy: [facility] Fillable at [facility] Special[facility]: Yes Pharmacy staff will be reaching out to the patient to inform them of their medication's approval by their insurance. If applicable, a pharmacist will speak with the patient to offer our specialty pharmacy services and to arrange delivery of their medication. Avril Hammer 03/17/22 1:49 PM [facility], Medication Prior Authorization Submission Patient: Cong Khan Patient : 1955 Patient Address: [address] [address] Phone: [phone] (home) Medication Name: ENTRESTO 49 MG-51 MG TABLET Medication ID: [id number] Subscriber Insurance: Rx Options [place] Subscriber Insurance Comment: Fax: Physician: JAYY AGUIRRE Physician Comment: Sent Via: [facility] [place]: [id number] Ref/Case/PA#: Unknown Medication Strength Frequency Requested: Entresto 49-51mg tablets: Take one tablet by mouth twice a day Qty/Day Supply: 180/90 New Start: Insurance Change Diagnosis & ICD-10 Code: Heart failure with reduced ejection fraction, I50.20 Patient Notified: Yes Submission Notes: None Avril Hammer 03/17/22 1:49 PM documented in this encounter Plan of Treatment Upcoming Encounters Date Type Specialty Care Team Description 06/16/2022 Laboratory Appointment Lab 06/16/2022 Office Visit Cardiology Gianna Lorenzana PA [facility] Cardiology Dept [place], [place] [address] (Wo rk) Scheduled Procedures Name [...] Facing Tad A, Understanding Action Plan [facility] Note: Formatting of this note might be d ifferent from the original. Maintain 100% adherence to Entresto twic e daily regimen documented as of this encounter Visit Diagnoses Not on filedocumented in this encounter Care Teams Powerhouse Laborer Relationship Specialty Start Date End Date Pricila Geller APRN PCP - General Family Medicine 11/24/18 [place] [address] documented as of this encounter
--- OUTSIDE RECORDS SUMMARY | 2022-05-20 07:36 | XMS_ITS | Encounter Summary ---
:1955 Author Organization [facility] [place] [address] Care Team Providers Name Role Phone Pricila Geller APRN Primary Care Provider Encounter Details Date Type Department Care Team Description 04/02/2022 Notes Only [place] [address] Social History Tobacco Use Types Packs/Day Years [...] documented as of this encounter Progress Notes Tarik Cage - 04/02/2022 1:41 PM EDT Application Final Determination Application Sent to Program: 11/25/21 Program Name: [facility] Medication: ENTRESTO Program Phone #: Program Fax #: Pharmacy Phone #: Pharmacy Fax#: Enrollment End Date: 11/20/2022 Quantity Shipped: 90 DAYS Shipping Timeframe: 7-10 DAYS Ships To: PATIENT Comments/Other: documented in this encounter Plan of Treatment Upcoming Encounters Date Type Specialty Care Team Description 06/16/2022 Laboratory Appointment Lab 06/16/2022 Office Visit Cardiology Gianna Lorenzana PA [facility] er Cardiology Dept [place], [place] [address] (Wo rk) Scheduled Procedures Name [...] and Facing Tad A, Understanding Action Plan [facility] Note: Formatting of this note might be d ifferent from the original. Maintain 100% adherence to Entresto twic e daily regimen documented as of this encounter Visit Diagnoses Not on filedocumented in this encounter Care Teams Shock Absorber Installer Relationship Specialty Start Date End Date Pricila Geller APRN PCP - General Family Medicine 11/24/18 [address] [place] [address] documented as of this encounter
--- OUTSIDE RECORDS SUMMARY | 2022-05-20 07:36 | XMS_ITS | Encounter Summary ---
:1955 Author Organization [facility] [place] [address] Care Team Providers Name Role Phone Pricila Geller APRN Primary Care Provider Reason for Visit Reason Onset Date Comments Medication Refill 01/26/2022 Encounter Details Date Type Department Care Team Description 01/26/2022 Refill Cardiology at [facility] [place] Vu Medication Refill [facility] [place] [address] [facility] [phone] [place], [place] [address] (Wo rk) Social History Tobacco Use Types [...] on file documented as of this encounter Plan of Treatment Upcoming Encounters Date Type Specialty Care Team Description 06/16/2022 Laboratory Appointment Lab 06/16/2022 Office Visit Cardiology Gianna Lorenzana PA [facility] er Cardiology Dept [place], [place] [address] (Wo rk) Scheduled Procedures Name [...] and Facing Tad A, Understanding Action Plan [facility] Note: Formatting of this note might be d ifferent from the original. Maintain 100% adherence to Entresto twic e daily regimen documented as of this encounter Visit Diagnoses Diagnosis Chronic systolic heart failure Atrial fibrillation, unspecified type documented in this encounter Care Teams Needle Punch Operator Relationship Specialty Start Date End Date Pricila Geller APRN PCP - General Family Medicine 11/24/18 [place] [address] documented as of this encounter
--- OUTSIDE RECORDS SUMMARY | 2022-05-20 07:36 | XMS_ITS | Encounter Summary ---
:1955 Author Organization [facility] [place] [address] Care Team Providers Name Role Phone Pricila Geller APRN Primary Care Provider Encounter Details Date Type Department Care Team Description 11/25/2021 Notes Only Care [place] [address] Social History Tobacco Use Types Packs/Day Years [...] this encounter Progress Notes Tarik Cage - 11/25/2021 4:00 PM EST I faxed the application for assistance with ENTRESTO to [employer] I will follow through once the typing teacher program makes a decision. documented in this encounter Plan of Treatment Upcoming Encounters Date Type Specialty Care Team Description 06/16/2022 Laboratory Appointment Lab 06/16/2022 Office Visit Cardiology Gianna Lorenzana PA [facility] Cardiology Dept [place], [place] [address] (Wo rk) Scheduled Procedures Name [...] on filedocumented in this encounter Care Teams Private Client Advisor Relationship Specialty Start Date End Date Pricila Geller APRN PCP - General Family Medicine 11/24/18 [place] [address] documented as of this encounter
--- OUTSIDE RECORDS SUMMARY | 2022-05-20 07:36 | XMS_ITS | Encounter Summary ---
:1955 Author Organization [place] [address] Care Team Providers Name Role Phone Pricila Geller APRN Primary Care Provider Encounter Details Date Type Department Care Team Description 12/02/2021 Laboratory Appointment Lab [facility]L [facility] [place] [id number] Social History Tobacco Use Types Packs/Day Years [...] 06/16/2022 Office Visit Cardiology Gianna Lorenzana PA [facility] Cardiology Dept [place], [place] [address] (Wo rk) Scheduled Procedures Name [...] Facing Tad A, Understanding Action Plan [facility] Note: Formatting of this note might be d ifferent from the original. Maintain 100% adherence to Entresto twic e daily regimen documented as of this encounter Procedures Procedure Name Priority Date/Time Associated Diagnosis Comme nts HC PROBNP Routine 12/02/2021 12:32 PM Chronic systolic Resu lts for this EST heart failure procedure are in the results section. HC VENIPUNCTURE Routine 12/02/2021 12:32 PM Chronic systolic R esults for this EST heart failure procedure are in the results section. documented in this encounter Results (ABNORMAL) pro-Brain Natriuretic Peptide (12/02/2021 12:32 PM EST) P athologist Signature ProBNP 983 (H) <=124 pg/mL [facility] Specimen Anatomical Collection Method Collection Time Receive d Time (Source) Location / / Volume Laterality Blood 12/02/2021 12:32 12/02/2021 PM EST 12:42 PM EST Resulting Agency Comment Spec In Lab Lali Whelan MD CHEMISTRY ORDERABLES Performing Organization Address City/State/ZIP [place] [address] (ABNORMAL) Comprehensive metabolic panel (non-fasting) (12/02/2021 12:32 PM EST) athologist Signature Glucose Lvl 105 65 - 199 [facility] mg/dL [facility] Comment: Diabetes: >=200 mg/dL plus symp toms BUN 21 (H) 10 - 20 mg/dL [facility] Creatinine 1.73 (H) 0.80 - 1.50 mg/dL [facility] Sodium 137 135 - 145 mmol/L [facility] Potassium 4.3 3.5 - 5.0 mmol/L [facility] Comment: Please note: ??Patients with [...] Anion Gap 11 5 - 15 mmol/L [facility] Calcium 9.4 8.5 - 10.5 mg/dL [facility] Total Protein 7.0 6.1 - 8.0 g/dL [facility] Albumin 4.3 3.2 - 5.2 g/dL [facility] AST 16 0 - 39 unit/L [facility] ALT 11 0 - 55 unit/L [facility] Alk Phos 44 40 - 130 unit/L [facility] Total Bilirubin 0.4 0.2 - 1.3 mg/dL [facility] Estimated GFR 40 (L) >=60 [...] Organization Address City/State/ZIP [place] [address] documented in this encounter Visit Diagnoses Diagnosis Chronic systolic heart failure documented in this encounter Care Teams Snow Blower Relationship Specialty Start Date End Date Pricila Geller APRN PCP - General Family Medicine 11/24/18 [address] [place] [address] documented as of this encounter
--- OUTSIDE RECORDS SUMMARY | 2022-05-20 07:36 | XMS_ITS | Encounter Summary ---
:1955 Author Organization [facility] [place] [address] Care Team Providers Name Role Phone Pricila Geller APRN Primary Care Provider Reason for Visit Reason Comments Medication Refill Encounter Details Date Type Department Care Team Description 03/04/2022 Refill Cardiology at [facility] Lali Vu Medication Refill [facility] [place] [address] [facility] [phone] [place], [place] [address] (Wo rk) Social History Tobacco [...] this encounter Miscellaneous Notes Telephone Encounter - Amanda Orlando RN - 03/08/2022 7:27 AM EDT 12/02/21 office note by LUIS ALFREDO Reilly HFimpEF: d/t valve disease, raza EF 31% in 09/06, recovered 52% in 04/10 with GDMT, today 50%, NYHA 2, volume near euvolemic - Beta danni: Metop succ 150mg qAM, 100mg qPM - RASi: Entresto 97/103mg BID - trial of reduced dose Entresto to 1/2 tab of 97/103 mg - MRA: EF recovered p/t initiation - SGLT-2: EF recovered p/t initiation - Diuretic: Torsemide 20 mg QD - ICD: EF recovered prior to placement Due for for 6 mo. F/u in May- Amanda Orlando RN, BSN Ambulatory Cardiology Department documented in this encounter Plan of Treatment Upcoming Encounters Date Type Specialty Care Team Description 06/16/2022 Laboratory Appointment Lab 06/16/2022 Office Visit Cardiology Gianna Lorenzana PA [facility] [address] Cardiology Dept [place], [place] [address] (Wo rk) Scheduled Procedures Name [...] and Facing Tad A, Understanding Action Plan [facility] Note: Formatting of this note might be d ifferent from the original. Maintain 100% adherence to Entresto twic e daily regimen documented as of this encounter Visit Diagnoses Diagnosis Chronic systolic heart failure documented in this encounter Care Teams Carburetor Repairer Relationship Specialty Start Date End Date Pricila Geller APRN PCP - General Family Medicine 11/24/18 [place] [address] documented as of this encounter
--- OUTSIDE RECORDS SUMMARY | 2022-05-20 07:36 | XMS_ITS | Encounter Summary ---
:1955 Author Organization [facility] [place] [address] Care Team Providers Name Role Phone Pricila Geller APRN Primary Care Provider Reason for Visit Reason Comments Medication Refill Encounter Details Date Type Department Care Team Description 01/23/2022 Refill Cardiology at [facility] Lali Vu Medication Refill [facility] [place] [address] [facility] [phone] [place], [place] [address] (Wo rk) Social History Tobacco [...] Telephone Encounter - Amanda Orlando RN - 01/25/2022 12:37 PM EST Per 12/02/21 visit with LUIS ALFREDO [place]-- #Afib: EKG - SR with occ PVCs and left bundle branch block DCCV/Ablation: None Rate Control: Metoprolol succinate 150 mg in the morning and 100 mg in the evening Rhythm Control: None at this time, pending PVC burden, may need to consider antiarrhythmic in the future. Anticoagulation: Apixiban 2.5 mg BID - this was a dose reduction 2/2 bleeding ?? #HTN: - Complication(s): None to date - Antihypertensive Regimen: Metoprolol succinate, Entresto as above - ASA 81mg QD ?? 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 RTC in 6 months with labs documented in this encounter Plan of Treatment Upcoming Encounters Date Type Specialty Care Team Description 06/16/2022 Laboratory Appointment Lab 06/16/2022 Office Visit Cardiology Gianna Lorenzana PA [facility] Cardiology Dept [place], [place] [address] (Wo rk) Scheduled Procedures Name [...] Facing Tad A, Understanding Action Plan [facility] Note: Formatting of this note might be d ifferent from the original. Maintain 100% adherence to Entresto twic e daily regimen documented as of this encounter Visit Diagnoses Diagnosis Chronic systolic heart failure Atrial fibrillation, unspecified type documented in this encounter Care Teams Child Care Coordinator Relationship Specialty Start Date End Date Pricila Geller APRN PCP - General Family Medicine 11/24/18 [address] [place] [address] documented as of this encounter
--- OUTSIDE RECORDS SUMMARY | 2022-05-20 07:36 | XMS_ITS | Clinical Summary ---
:1955 Author Organization [facility] [place] [address] Care Team Providers Name Role Phone Pricila Geller JOELLE Primary Care Provider Allergies No known active allergies Medications Medication Sig Dispensed Refills Start Date End Date Status aspirin 81 mg Tablet, Take 81 mg by 30 tablet 3 09/08/2017 Active Chewable mouth daily. tamsulosin (FLOMAX) 0.4 mg daily. 11 08/06/2019 Active 0.4 mg Capsule finasteride (PROSCAR) 5 mg daily. 11 08/06/2019 Active 5 mg Tablet cholecalciferol, Take by mouth. 0 Active Vitamin D3, (D3-2000) 50 mcg (2,000 unit) Capsule fish oil-omega-3 fatty Take 1,200 mg by 0 Active acids 1,000 mg Capsule mouth daily. b complex vitamins Take 1 capsule by 0 Active Capsule mouth daily. NETTLE LEAF ORAL Take by mouth. 0 Active folic acid (Folvite) 1 Take 1 mg by 0 Active mg Tablet mouth daily. Eliquis 2.5 mg TAKE ONE TABLET 180 tablet 3 10/23/2021 Active TabletIndications: BY MOUTH TWICE A Atrial fibrillation, DAY unspecified type, Cerebrovascular accident (CVA) due to embolism of right middle cerebral artery metoprolol succinate Take 1 tablet by 180 tablet 2 01/25/2022 Active XL (Toprol-XL) 100 mg mouth 2 times Tablet Sustained daily. Release 24 hrIndications: Chronic systolic heart failure, Atrial fibrillation, unspecified type metoprolol succinate Take 1 tablet by 90 tablet 2 01/25/2022 Active XL (Toprol-XL) 50 mg mouth every Tablet Sustained morning. Take Release 24 with metoprolol hrIndications: Chronic succinate 100 mg= systolic heart 150 mg total dose failure, Atrial in AM fibrillation, unspecified type torsemide (Demadex) 10 Take 2 tablets by 90 tablet 1 2 Active mg TabletIndications: mouth daily. Chronic systolic heart failure sacubitriL-valsartan Take 1 tablet by 180 tablet 3 03/10/2022 Active (Entresto) 49-51 mg mouth 2 times Tablet daily. tabletIndications: Chronic systolic heart failure Active Problems Problem Noted Date AMS (altered mental status) 03/24/2021 Chronic cough 12/10/2020 Overview: Added automatically from request for angel gudino [id number] Heartburn 12/10/2020 Overview: Added automatically from request for angel gudino [id number] RUQ pain 12/10/2020 Overview: Added automatically from request for angel shahab [id number] Fecal urgency 12/10/2020 Overview: Added automatically from request for angel shahab [id number] Dysphagia 12/10/2020 Overview: Added automatically from request for angel cunhay [id number] History of hepatitis C 12/10/2020 Overview: Added automatically from request for angel cunhay [id number] Valvular disease 09/03/2017 Overview: - mitral valve prolapse, repair ([place], [place]) 11/07/09: P2 resection, sliding annuloplasty, placement of #38 Future band. - [facility] 12[facility]10 : mitral valve replacement with a #33 EPIC IC procedure, tricuspid valve repair with a #32 MC3 ring, MAZE - AVR 2013. (NASRA Soto): no rec ords available. 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 Mean trans aortic gradient in mid 20's, DVI 0.22, transmitral gradient 6 at 95 bpm Atrial fibrillation 08/30/2017 Hypertension 08/30/2017 H/O mitral valve replacement with tissue graft 017 H/O aortic valve replacement with porcine valve 2016 Stroke 08/30/2017 Overview: Right hemispheric, left hand/arm symptom s. Presumably cardioemoblic in patient with valvular afib who had discontinued warfarin. Encounters Date Type Specialty Care Team Description 04/02/2022 Notes Only Care Management Tarik Cage 03/25/2022 Telephone Cardiology Prisca Russ, Follow-up (E alexis WEN through [employer] ) 03/10/2022 Specialty Pharmacy Pharmacy [facility], Prior A uthorization Avril (Entresto 49-51 mg tablets ) 03/09/2022 Refill Cardiology Avelino Whelan Medication Refill Lali Garland MD (Entresto 49-51 mg) 03/04/2022 Refill Cardiology Avelino Whelan, Medication Refill Lali Garland MD from Last 3 Months Immunizations Name Administration Dates Next Due Influenza Vaccine PF, Quadrivalent 09/07/2017 Family History Medical History Relation Comments Substance Use Disorder Brother 1 Alcohol Use Disorder Father Aneurysm Father Hypertension Father Emphysema Mother Hypertension Mother Celiac Disease Neg Hx Colorectal Cancer Neg Hx Esophageal Cancer Neg Hx Inflammatory Bowel Disease Neg Hx Relation Status Comments Brother 1 Brother 2 Alive Father Mother Social History Tobacco Use Types Packs/Day Years [...] Assigned at Date Recorded Not on file Last Filed Vital Signs Vital Sign Reading Time Taken Comments Blood Pressure 105/74 12/02/2021 1:09 PM EST Pulse 76 12/02/2021 1:09 PM EST Temperature 36.6 ??C (97.9 ??F) 03/25/2021 2:00 PM EDT Respiratory Rate 25 03/25/2021 4:00 PM EDT Oxygen Saturation 97% 12/02/2021 1:09 PM EST Inhaled Oxygen Concentration - - Weight 80.3 kg (177 lb) 12/02/2021 1:09 PM EST Height 175.3 cm (5' 9) 12/02/2021 1:09 PM EST Body Mass Index 26.14 12/02/2021 1:09 PM EST Plan of Treatment Upcoming Encounters Date Type Specialty Care Team Description 06/16/2022 Laboratory Appointment Lab 06/16/2022 Office Visit Cardiology Gianna Lorenzana PA [facility] Cardiology Dept [place], [place] [address] (Wo rk) Scheduled Procedures Name Priority Associated Diagnoses Date/Time EGD, UPPER GI ENDOSCOPY Chronic cough Heartburn RUQ pain Fecal urgency Dysphagia, unspecifi ed type History of hepatitis C COLONOSCOPY, DIAGNOSTIC Chronic cough Heartburn RUQ pain Fecal urgency Dysphagia, unspecifi ed type History of hepatitis C Health Maintenance Due Date Last Done Comments Covid-19 Vaccine (#1) 1958 Pneumoccocal Vaccine: 65+ (1 - 1959 PCV) Tdap adult 1972 Tetanus vaccine 1972 Colonoscopy 1998 Zoster vaccine (1 of 2) 2003 AAA Screen 2018 Influenza (Flu) vaccine (1 of 1 - 07/22/2021 09/07/2017 Influenza standard series) Diabetes Screening (HgbA1C or 12/02/2024 12/02/2021, 2020, Glucose) 03/25/2021, Additional history exists Lipid Screening 06/15/2026 06/15/2021, 03/25/2021, 06/19/2019, Additional history exists Hepatitis C Screening Completed 06/05/2019 Goals Goal Patient Goal Associated Recent Patient-Stated? Author Type Problems Progress DH Home Medication Patient No Daniela ed, Compliance and Facing Tad A, Understanding Action Plan [facility] Note: Formatting of this note might be d ifferent from the original. 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
--- OUTSIDE RECORDS SUMMARY | 2022-05-20 07:36 | XMS_ITS | Encounter Summary ---
:1955 Author Organization [facility] [place] [address] Care Team Providers Name Role Phone BenjamínPricila marcus JOELLE Primary Care Provider Reason for Visit Reason Onset Date Comments Follow-up 01/21/2022 Entresto Encounter Details Date Type Department Care Team Description 01/21/2022 Telephone Cardiology [place] [facility] Prisca Russ, RN Follow-up (Entrest[place]) [place] [address] Social History Tobacco Use Types Packs/Day Years [...] Telephone Encounter - Prisca Russ RN - 01/25/2022 2:20 PM EST Pt contacted to see how he is doing on the Entresto 97-103 mg 1/2 tablet BID, before we send a refill (needs new PA for [employer] to process Application assistance). Pt would like to try taking a full tablet bid for the next week, if he tolerates it will pend a refill for the 97-103 mg bid, if not will pend the Rx for the 49- 51 mg tablets. Pt to call with an up date in a week sooner if he is not tolerating the increase. Pt verbalized good understanding of the current POC. Telephone Encounter - Prisca Russ RN - 01/21/2022 5:44 PM EST Per Tarik in the MAP office [facility] is requesting an updated PA for the Entresto in order to process the the request for assistance through their program. Prescription pended to the [facility] pt pharmacy to assist the the PA process. Telephone Encounter - Prisca Russ RN - 01/21/2022 5:43 PM EST ----- Message from Tarik Cage sent at 01/12/2022 9:50 AM EST ----- Regarding: RE: LUIS ALFREDO I called [employer] and they do need a PA from [place] for the Entresto. Once that is faxed into them, they can process the application. -Tarik ----- Message ----- From: Prisca Russ RN Sent: 01/11/2022 7:19 PM EST To: [facility] Map (Medication Assistance) Subject: FW: PA Would someone check to see what [facility] is asking? We may need to do a new PA before they can approve the pt's application. Prisca Lei ----- Message ----- From: Jodee Hazel Sent: 01/11/2022 2:35 PM EST To: Prisca Russ RN Subject: LUIS ALFREDO [facility] patient assistance foundation ([phone]) called to let you know that Cong'natalia entresto needs to go through [employer] ([phone]) documented in this encounter Plan of Treatment Upcoming Encounters Date Type Specialty Care Team Description 06/16/2022 Laboratory Appointment Lab 06/16/2022 Office Visit Cardiology Gianna Lorenzana PA [facility] er Cardiology Dept [place], [place] [address] (Wo rk) Scheduled Procedures Name [...] Tad A, Understanding Action Plan [facility] Note: Formatting of this note might be d ifferent from the original. Maintain 100% adherence to Entresto twic e daily regimen documented as of this encounter Visit Diagnoses Diagnosis Chronic systolic heart failure documented in this encounter Care Teams Air Bag Curer Relationship Specialty Start Date End Date Pricila Geller APRN PCP - General Family Medicine 11/24/18 [place] [address] documented as of this encounter
--- OUTSIDE RECORDS SUMMARY | 2022-05-20 07:36 | XMS_ITS | Encounter Summary ---
:1955 Author Organization [facility] [place] [address] Care Team Providers Name Role Phone Ignacio Pricila JOELLE Primary Care Provider Reason for Referral Diagnostic Test (Routine) - Closed Specialty Diagnoses / Procedures Referred By Contact Refer red To Contact Cardiology Diagnoses HFrEF (heart failure with reduced ejection fraction) Lali Vu raul Non-Inv Card Lab Procedures Echocardiogram Transthoracic([facility] or [place]) [place] [address] [place] [address] Referral ID Status Reason Start Date Expiration Date Visits V isits Requested Authorized [id number] Closed Specialty 06/15/2021 06/15/2022 1 1 Service Requested Reason for Visit Diagnostic Test (Routine) - Closed Specialty Diagnoses / Procedures Referred By Contact Refer red To Contact Cardiology Diagnoses HFrEF (heart failure with reduced ejection fraction) Lali Vu Non-Inv Card Lab Procedures Echocardiogram Transthoracic([facility] or [place]) [place] [address] [place] [address] Referral ID Status Reason Start Date Expiration Date Visits V isits Requested Authorized [id number] Closed Specialty 06/15/2021 06/15/2022 1 1 Service Requested Encounter Details Date Type Department Care Team Description 12/02/2021 Hospital Encounter Non-Invasive HFrEF (he art failure Cardiology Lab [facility] [place] [address] Social History Tobacco Use Types Packs/Day [...] on file documented as of this encounter Medications at Time of Discharge Medication Sig Dispensed Refills Start Date End Date Eliquis 2.5 mg TAKE ONE TABLET BY 180 tablet 3 10/23/2021 TabletIndications: Atrial MOUTH TWICE A DAY fibrillation, unspecified type, Cerebrovascular accident (CVA) due to embolism of right middle cerebral artery cholecalciferol, Vitamin Take by mouth. 0 D3, (D3-2000) 50 mcg (2,000 unit) Capsule fish oil-omega-3 fatty Take 1,200 mg by 0 acids 1,000 mg Capsule mouth daily. b complex vitamins Capsule Take 1 capsule by 0 mouth daily. NETTLE LEAF ORAL Take by mouth. 0 folic acid (Folvite) 1 mg Take 1 mg by mouth 0 Tablet daily. tamsulosin (FLOMAX) 0.4 mg 0.4 mg daily. 11 2018 Capsule finasteride (PROSCAR) 5 mg 5 mg daily. 11 08/06/20 19 Tablet aspirin 81 mg Tablet, Take 81 mg by 30 tablet 3 09/08/2017 Chewable mouth daily. sacubitriL-valsartan Take 1 tablet by 60 tablet 3 1 03/09/2022 (Entresto) 97-103 mg mouth 2 times Tablet tabletIndications: daily. Chronic systolic heart failure torsemide (Demadex) 10 mg Take 1 tablet by 90 tablet 3 05/0 01/202103/08/2022 TabletIndications: Chronic mouth daily. systolic heart failure metoprolol succinate XL Take 1 tablet by 180 tablet 3 202001/25/2022 (Toprol-XL) 100 mg Tablet mouth 2 times Sustained Release 24 daily. Take extra hrIndications: Chronic 50 mg tab in am systolic heart failure, for total 150 mg Atrial fibrillation, in am & 100 mg in unspecified type pm. metoprolol succinate XL Take 1 tablet by 90 tablet 3 202001/25/2022 (Toprol-XL) 50 mg Tablet mouth daily. Take Sustained Release 24 with 100 mg tab in hrIndications: Chronic in am for total of systolic heart failure, 150 mg in am. Atrial fibrillation, unspecified type documented as of this encounter Plan of Treatment Upcoming Encounters Date Type Specialty Care Team Description 06/16/2022 Laboratory Appointment Lab 06/16/2022 Office Visit Cardiology Gianna Lorenzana PA [facility] Cardiology Dept [place], [place] [address] (Wo rk) Scheduled Procedures Name [...] and Facing Tad A, Understanding Action Plan [facility] Note: Formatting of this note might be d ifferent from the original. Maintain 100% adherence to Entresto twic e daily regimen documented as of this encounter Procedures Procedure Name Priority Date/Time Associated Comments Diagnosis ECHOCARDIOGRAM COMPLETE Routine 12/02/2021 12:13 HFrEF (heart Results for this PM EST failure with procedure are i n reduced ejection the results fraction) section. documented in this encounter Results ECHOCARDIOGRAM COMPLETE (12/02/2021 12:13 PM EST) P athologist Signature EF 50 HEARTLAB SYSTEM Specimen (Source) Anatomical Location Collection Method / Collectio n Time Received Time / Laterality Volume 12/02/2021 Narrative HEARTLAB SYSTEM - 12/02/2021 12:40 PM ES T Procedure: ?Transthoracic Echocardiogram Patient: ?PAMELA Louis ? (Age): 1955(66y) Med Rec#: ? [id number] ?Sex: ?M ? Site Loc: ? [facility] ?Ht / Wt: ??175(cm)/82(kg) Pt. Loc: ?Echo Lab ?BSA: ?1.98 Study Date: ?? 12/02/2021 ?Pt. Type: Outpatient Tape: ? Referring: [facility] Reading: Aron Flores ([id number]) Industrial Waste Inspector: Pamela Saleh RDCS, FASE Diagnosis: *Heart failure, unspecified (I50.9) BP: ? 106/62 HR: ? 74 SUMMARY: 1. The left ventricular chamber size is normal. Moderate concentric left ventricular hypertrophy is observed. Deja bal left ventricular systolic function is mildly reduced. The quantita tive left ventricular ejection fraction by biplane Walker's method is 50% (in short axis views appears more around 40% by visual estimation o [facility]). There is diffuse hypokinesis present. 2. The left atrium is severely dilated. (99 ml/m2) 3. The right ventricle is mildly dilated . Right ventricular global systolic function is mildly reduced. (RV free wall strain -10%). The estimated pulmonary artery systolic pres sure is 25 mmHg with estimated RA pressure of 3 mmHg. 4. The right atrium is mildly dilated. 5. A porcine bio-prosthetic aortic valve is present. The mean trans-valvular gradient across ??the aor tic valve is 14 mmHg. The peak instantaneous trans-valvular gradient ac ross ??the aortic valve is 27 mmHg, DOI (VTI) 0.39. Mild (1+/4+) aorti c valve prosthesis regurgitation is present. 6. A 32 mm bio-prosthetic mitral valve i s present. The mean gradient across the mitral valve is 3 mmHg at HR 76 bpm. There is a trace amount of mitral prosthesis regurgitation. 7. The tricuspid valve is s/p repair, ?? leaflets are mildly thickened. There is trace tricuspid regurgitation p resent. 8. There is mild dilatation of the aorti c root (4.0 cm). There is moderate dilatation of the ascending aor ta (4.5 cm). 9. Compared to 03/25/2021 no significant c hanges, however visually, left ventricular systolic function appears mi ldly reduced. Findings ? : Study Quality: ? Adequate Left Ventricle: ? The left ventricul ar chamber size is normal. ?Moderate concentric left ventricul ar hypertrophy is observed. ?Global left ventricular systolic f unction is mildly reduced. ?The quantitative left ventricular ejection fraction by biplane Walker's method is 50%. ?There is diffuse hypokinesis prese nt. ?Assessment of diastolic function i s indeterminate. Left Atrium: ? The left atrium is se verely dilated.(99 ml/m2) Right Ventricle: ? The right ventric le is mildly dilated. ?Right ventricular global systolic function is mildly reduced.(RV free wall strain -10%). ?The estimated pulmonary artery sys tolic pressure is 25 mmHg. ?The estimated right atrial pressur e is 3 mmHg. Right Atrium: ? The right atrium is mildly dilated. Aortic Valve: ? The peak instantaneo us trans-valvular gradient across the aortic valve is 27 mmHg. ?The mean trans-valvular gradient a cross ??the aortic valve is 14 mmHg. ?The size of the prosthetic aortic valve is 24mm. ?The prosthetic aortic valve was im planted on 01/19/2014. ?A porcine bio-prosthetic aortic va lve is present. ?Mild (1+/4+) aortic valve prosthes is regurgitation is present. Mitral Valve: ? The mean gradient ac ross the mitral valve is 3 mmHg. HR 76 bpm. ?The size of the prosthetic mitral valve is 32mm. ?The prosthetic mitral valve was im planted on 01/19/2014. ?A bio-prosthetic mitral valve is p resent. ?There is a trace amount of mitral prosthesis regurgitation. Tricuspid Valve: ? The tricuspid michael ve leaflets are mildly thickened. S/P TV repair. ?There is trace tricuspid regurgita tion present. Pulmonic Valve: ? The pulmonic valve appears normal. Pericardium: ? There is no pericardi al effusion. Aorta: ? There is mild dilatation of the aortic root. 4.0 cm ?There is moderate dilatation of th e ascending aorta. 4.5 cm Pulmonary Artery: ? The main pulmona ry artery appears normal. Venous: ? The inferior vena cava jody ears normal in size. ?There is a greater than 50% respir atory change in the inferior vena cava dimension. Misc: ? Two-dimensional echo, spectr al Doppler and color Doppler performed. Chambers 2D ?Value ?Units (Range) ? IVSd (2D) ? 1.35 ? cm ? LVPWd (2D) ?1.22 ? cm ? IVS:LVPW ratio (2D) 1.11 ? ratio ? RWT (2D) ?0.49 ? ratio ? RWT PW (2D) ? 0.46 ? ratio ? LVIDd (2D) ?5.28 ? cm ? LVIDs (2D) ?3.77 ? cm ? LVIDd (2D) index ?2.67 ? cm/m2 ? LVIDs (2D) index ?1.91 ? cm/m2 ? LV FS (2D) ?28.56 ?% ? EF Teichholz (2D) ?? 54.63 ?% ? Ao root diameter (2D4.01 ? cm (2.1 - 3.6) ? Ascending Ao ?4.48 ? cm (2 - 3.5) ? Volumes/Mass ?Value ?Units (Range) ? LA Area 4 CH ?43 ? cm2 (<21) ? LA ESV BP (A/L) nagf180.52 ? m l/m2 ? RA AREA 4CH ? 24 ? cm2 ? LA ESV BP (MOD) inde98 ? ml/m2 ? LV ESV SP 4CH (MOD) 80.13 ? ml ? LV ESV SP 2CH (MOD) 64.19 ? ml ? LV EDV BP ? 146.53 ? ml ? LV ESV BP ? 73.56 ?ml ? LV EDV BP index ? 74.13 ?ml/m2 ? LV ESV BP index ? 37.21 ?ml/m2 ? BP EF (MOD) ? 49.8 ? % ? LV mass (2D) ?280.62 ? g ? LV mass (2D) index ??141.96 ? g/m2 ? Diastolic/Systolic Function ?Value ?Units (Range) ? MV E-wave Vmax ?1.26 ? m/sec ? LV septal e' Vmax ?? 0.05 ? m/sec ? LV lateral e' Vmax ??0.07 ? m/sec ? LV average e' Vmax ??0.06 ? m/sec ? LV E:e' septal ratio25.18 ? ratio ? LV E:e' lateral rati17.99 ? ratio ? LV average E:e' rati20.99 ? ratio ? Aortic Valve ?Value ?Units (Range) ? AV Vmax ? 2.6 ?m/sec ? AV VTI ?47.83 ?cm ? AV peak gradient ?27 ? mmHg ? AV mean gradient ?14 ? mmHg ? LVOT diameter ? 2.09 ? cm ? LVOT Vmax ? 0.72 ? m/sec ? LVOT VTI ?18.82 ?cm ? LVOT peak gradient ??4.72 ? mmHg ? LVOT mean gradient ??2.21 ? mmHg ? DOI (VTI) ? 0.39 ? ratio ? DOI (Vmax) ?0.28 ? ratio ? SV LVOT ? 64.24 ?ml ? SV LVOT Index ? 32 ? ml/m2 ? CO LVOT ? 4.75 ? l/min ? Cardiac index ? 2.41 ? l/min/m2 ? AMAURY (continuity Vmax0.94 ? cm2 ? AMAURY (continuity Vmax0.48 ? cm2/m2 ? AMAURY (continuity VTI)1.34 ? cm ? AMAURY (continuity VTI)0.68 ? cm2/m2 ? AR PHT ?991.31 ? msec ? AR peak gradient ?45.21 ?mmHg ? Mitral Valve ?Value ?Units (Range) ? MV Vmax ? 1.33 ? m/sec ? MV VTI ?31.81 ?cm ? MV peak gradient ?7.03 ? mmHg ? MV mean gradient ?3 ?mmHg ? MVA (continuity VTI)2.02 ? cm2 ? Tricuspid Valve ?Value ?Units (Range) ? TV Vmax ? 1.45 ? m/sec ? TV VTI ?36.01 ?cm ? TV peak gradient ?8.38 ? mmHg ? TV mean gradient ?3 ?mmHg ? TR Vmax ? 2.35 ? m/sec ? TR peak gradient ?22 ? mmHg ? RAP ? 3 ?mmHg ? RVSP ?25 ? mmHg ? Measurement Trending Name ? 12/02/2021 ?03/25/2021 ?10/24/2020 ?01/18/2020 ? 04/02/2019 ?1 ? TV mean gradient ? 3 MV mean gradient ? 3 6 5 3.35 5 6 This report has been electronically sign ed by: _ Aron Flores MD ? 12/02/2021 12:40 :22 Images reviewed and interpretation verif ied [facility] Cardiac Ultrasound Laboratory Procedure Note Aron Flores MD - 12/02/2021Formattin g of this note might be different from the original. Procedure: Transthoracic Echocardiogram Patient: PAMELA HUTTON(Age): [birth year](66y) Med Rec#: [id number] Sex: M Site Loc: [facility] Ht / Wt: 175(cm)/82(kg) Pt. Loc: Echo Lab BSA: 1.98 Study Date: 12/02/2021 Pt. Type: Outpati ent Tape: Referring: [facility] Reading: Aron Flores ([id number]) Industrial Waste Inspector: Pamela Saleh RDCS, FASE Diagnosis: *Heart failure, unspecified (I50.9) BP: 106/62 HR: 74 SUMMARY: 1. The left ventricular chamber size is normal. Moderate concentric left ventricular hypertrophy is observed. Deja bal left ventricular systolic function is mildly reduced. The quantita tive left ventricular ejection fraction by biplane Walker's method is 50% (in short axis views appears more around 40% by visual estimation o [facility]). There is diffuse hypokinesis present. 2. The left atrium is severely dilated. (99 ml/m2) 3. The right ventricle is mildly dilated . Right ventricular global systolic function is mildly reduced. (RV free wall strain -10%). The estimated pulmonary artery systolic pres sure is 25 mmHg with estimated RA pressure of 3 mmHg. 4. The right atrium is mildly dilated. 5. A porcine bio-prosthetic aortic valve is present. The mean trans-valvular gradient across the aorti c valve is 14 mmHg. The peak instantaneous trans-valvular gradient ac ross the aortic valve is 27 mmHg, DOI (VTI) 0.39. Mild (1+/4+) aorti c valve prosthesis regurgitation is present. 6. A 32 mm bio-prosthetic mitral valve i s present. The mean gradient across the mitral valve is 3 mmHg at HR 76 bpm. There is a trace amount of mitral prosthesis regurgitation. 7. The tricuspid valve is s/p repair, le aflets are mildly thickened. There is trace tricuspid regurgitation p resent. 8. There is mild dilatation of the aorti c root (4.0 cm). There is moderate dilatation of the ascending aor ta (4.5 cm). 9. Compared to 03/25/2021 no significant c hanges, however visually, left ventricular systolic function appears mi ldly reduced. Findings : Study Quality: Adequate Left Ventricle: The left ventricular aakash mber size is normal. Moderate concentric left ventricular hy pertrophy is observed. Global left ventricular systolic functi on is mildly reduced. The quantitative left ventricular eject ion fraction by biplane Walker's method is 50%. There is diffuse hypokinesis present. Assessment of diastolic function is ind eterminate. Left Atrium: The left atrium is severely dilated.(99 ml/m2) Right Ventricle: The right ventricle is mildly dilated. Right ventricular global systolic funct ion is mildly reduced.(RV free wall strain -10%). The estimated pulmonary artery systolic pressure is 25 mmHg. The estimated right atrial pressure is 3 mmHg. Right Atrium: The right atrium is mildly dilated. Aortic Valve: The peak instantaneous tra ns-valvular gradient across the aortic valve is 27 mmHg. The mean trans-valvular gradient across the aortic valve is 14 mmHg. The size of the prosthetic aortic valve is 24mm. The prosthetic aortic valve was implant ed on 01/19/2014. A porcine bio-prosthetic aortic valve i s present. Mild (1+/4+) aortic valve prosthesis re gurgitation is present. Mitral Valve: The mean gradient across t he mitral valve is 3 mmHg. HR 76 bpm. The size of the prosthetic mitral valve is 32mm. The prosthetic mitral valve was implant ed on 01/19/2014. A bio-prosthetic mitral valve is presen t. There is a trace amount of mitral prost hesis regurgitation. Tricuspid Valve: The tricuspid valve oscar flets are mildly thickened. S/P TV repair. There is trace tricuspid regurgitation present. Pulmonic Valve: The pulmonic valve appea rs normal. Pericardium: There is no pericardial eff usion. Aorta: There is mild dilatation of the a ortic root. 4.0 cm There is moderate dilatation of the asc ending aorta. 4.5 cm Pulmonary Artery: The main pulmonary art santos appears normal. Venous: The inferior vena cava appears n ormal in size. There is a greater than 50% respiratory change in the inferior vena cava dimension. Misc: Two-dimensional echo, spectral Dop pler and color Doppler performed. Chambers 2D Value Units (Range) IVSd (2D) 1.35 cm LVPWd (2D) 1.22 cm IVS:LVPW ratio (2D) 1.11 ratio RWT (2D) 0.49 ratio RWT PW (2D) 0.46 ratio LVIDd (2D) 5.28 cm LVIDs (2D) 3.77 cm LVIDd (2D) index 2.67 cm/m2 LVIDs (2D) index 1.91 cm/m2 LV FS (2D) 28.56 % EF Teichholz (2D) 54.63 % Ao root diameter (2D4.01 cm (2.1 - 3.6) Ascending Ao 4.48 cm (2 - 3.5) Volumes/Mass Value Units (Range) LA Area 4 CH 43 cm2 (<21) LA ESV BP (A/L) zgfr174.52 ml/m2 RA AREA 4CH 24 cm2 LA ESV BP (MOD) inde98 ml/m2 LV ESV SP 4CH (MOD) 80.13 ml LV ESV SP 2CH (MOD) 64.19 ml LV EDV BP 146.53 ml LV ESV BP 73.56 ml LV EDV BP index 74.13 ml/m2 LV ESV BP index 37.21 ml/m2 BP EF (MOD) 49.8 % LV mass (2D) 280.62 g LV mass (2D) index 141.96 g/m2 Diastolic/Systolic Function Value Units (Range) MV E-wave Vmax 1.26 m/sec LV septal e' Vmax 0.05 m/sec LV lateral e' Vmax 0.07 m/sec LV average e' Vmax 0.06 m/sec LV E:e' septal ratio25.18 ratio LV E:e' lateral rati17.99 ratio LV average E:e' rati20.99 ratio Aortic Valve Value Units (Range) AV Vmax 2.6 m/sec AV VTI 47.83 cm AV peak gradient 27 mmHg AV mean gradient 14 mmHg LVOT diameter 2.09 cm LVOT Vmax 0.72 m/sec LVOT VTI 18.82 cm LVOT peak gradient 4.72 mmHg LVOT mean gradient 2.21 mmHg DOI (VTI) 0.39 ratio DOI (Vmax) 0.28 ratio SV LVOT 64.24 ml SV LVOT Index 32 ml/m2 CO LVOT 4.75 l/min Cardiac index 2.41 l/min/m2 AMAURY (continuity Vmax0.94 cm2 AMAURY (continuity Vmax0.48 cm2/m2 AMAURY (continuity VTI)1.34 cm AMAURY (continuity VTI)0.68 cm2/m2 AR PHT 991.31 msec AR peak gradient 45.21 mmHg Mitral Valve Value Units (Range) MV Vmax 1.33 m/sec MV VTI 31.81 cm MV peak gradient 7.03 mmHg MV mean gradient 3 mmHg MVA (continuity VTI)2.02 cm2 Tricuspid Valve Value Units (Range) TV Vmax 1.45 m/sec TV VTI 36.01 cm TV peak gradient 8.38 mmHg TV mean gradient 3 mmHg TR Vmax 2.35 m/sec TR peak gradient 22 mmHg RAP 3 mmHg RVSP 25 mmHg Measurement Trending Name 12/02/2021 03/25/2021 10/24/2020 01/18/2020 04/02/2019 08/31/2017 TV mean gradient 3 MV mean gradient 3 6 5 3.35 5 6 This report has been electronically sign ed by: _ Aron Flores MD 12/02/2021 12:40:22 Images reviewed and interpretation verif ied [facility] Cardiac Ultrasound Laboratory Lali Whelan MD ECHO ORDERABLES Performing Organization Address City/State/ZIP Code Phon e Number HEARTLAB SYSTEM documented in this encounter Visit Diagnoses Diagnosis HFrEF (heart failure with reduced ejecti on fraction) documented in this encounter Care Teams Home Economics Extension Worker Relationship Specialty Start Date End Date Pricila Geller APRN PCP - General Family Medicine 11/24/18 [address] [place] [address] documented as of this encounter
--- OUTSIDE RECORDS SUMMARY | 2022-05-20 07:36 | XMS_ITS | Encounter Summary ---
:1955 [place] [address] Care Team Providers Name Role Phone Pricila Geller APRN Primary Care Provider Reason for Visit Reason Onset Date Comments Follow-up 03/25/2022 [facility] through [employer] [facility] Encounter Details Date Type Department Care Team Description 03/25/2022 Telephone [place]iology [place] [facility] Prisca Russ, Follow-up ([facility] RN through [facility]ian marion) [place] [address] Social History Tobacco Use Types Packs/Day [...] encounter Miscellaneous Notes Telephone Encounter - Prisca Russ, RN - 03/31/2022 3:37 PM EDT Pt was able to fax the approval letter from his Dentist office today. Copy faxed to [employer] at [phone] (Application Review office). Urgent review requested. Pt notified, he will call [employer], if he has not heard from them by Tuesday. Awaiting decision from the [employer] for medication assistance. Telephone Encounter - Prisca Russ RN - 03/30/2022 10:40 AM EDT Call placed to pt who reports that he just got the notification in the mail, will try to down load to a word doc and send as an attachment via his [employer] account. He will do this evening, when he is home. Telephone Encounter - Prisca Russ RN - 03/30/2022 10:33 AM EDT Call placed to [facility] at [phone], opt 5, s/w Max to see if he can get a copy of the PA extension for Eliquis faxed to us. [facility] will not go forward with his application until they receive written confirmation of the PAExtension. LUIS ALFREDO has been approved from 12/08/2020 to 11/20/2022. LUIS ALFREDO #: [id number] Ticket ID # [id number]. He has forwarded the request to the PA dept. They will respond in 24-48 hours. Given fax number [phone], secure fax directly to the cardiology department Awaiting the document to send to [facility], when received.. Telephone Encounter - Prisca Russ RN - 03/25/2022 3:34 PM EDT Pt calling back to let us know that the person he talked to at [facility] will be mailing a copy of the extension to him and will try to send us a fax. Once we receive the confirmation we will fax it to [employer]. Telephone Encounter - Prisca Russ RN - 03/25/2022 3:12 PM EDT Call placed to Avani at [facility] [phone] OPT 2 to see if they have gotten confirmation that the PA through [employer] has been extended to 11/20/2022? They have not and would like a copy of the extension faxed to [phone] (Application Review office). Message sent to Avril in the Specialty pharmacy to see if she was able to get a confirmation letter this is her reply: The rep is telling me that all he can do is submit another ticket to have the PA approval with the correct dates faxed to us. He said there is no timeline on when we should receive this because he is unsure how long it will take. The patient may also want to reach out to the insurance and see if he has better luck. Pt contacted, given the above information. He will call [employer] at [phone] to request written documentation for the PA extension and have it faxed to the HF team [phone]. We will take it from there. Given the following case number for them to reference: Case/Reference #: [id number]. Awaiting a call back. documented in this encounter Plan of Treatment Upcoming Encounters Date Type Specialty Care Team Description 06/16/2022 Laboratory Appointment Lab 06/16/2022 Office Visit Cardiology Gianna Lorenzana PA [facility] Cardiology Dept [place], [place] [address] (Wo rk) Scheduled Procedures Name Priority Associated [...] and Facing Tad A, Understanding Action Plan [facility] Note: Formatting of this note might be d ifferent from the original. Maintain 100% adherence to Entresto twic e daily regimen documented as of this encounter Visit Diagnoses Not on filedocumented in this encounter Care Teams Oracle Developer Relationship Specialty Start Date End Date Pricila Geller APRN PCP - General Family Medicine 11/24/18 [address] [place] [address] documented as of this encounter
--- OUTSIDE RECORDS SUMMARY | 2022-05-20 07:37 | XMS_ITS | Encounter Summary ---
:1955 Author Organization [facility] [place] [address] Care Team Providers Name Role Phone Pricila Geller APRN Primary Care Provider Encounter Details Date Type Department Care Team Description 08/10/2021 Specialty Pharmacy Pharmacy at [facility] [place] [address] Social History Tobacco Use Types Packs/Day [...] this encounter Progress Notes Avril Hammer - 08/10/2021 3:56 PM EDT [facility] Assistance Referral The [facility] has looked into assistance for the following patient, but we have not been able to find any copay cards or foundations with available funding for them. A referral has been sent to the [facility] MAP team. The patient is aware that the OCM team will be reaching out, and we have provided the number to reach OCM in case they have any further questions. Patient: Cong Khan : 1955 Medication: Entresto 97-103mg tablet Dosing: Take one tablet by mouth twice a day Insurance: Rx Option [place] Medicare Part D?: Yes [place] has been approved, current copay is: $148.84 Avril Hammer 08/10/21 3:56 PM Avril Hammer - 08/10/2021 3:56 PM EDT [facility] Assistance Update The [facility] has attempted to reach back out to Cong Khan to see if they need any further guidance with acquiring relief charge nurse assistance for their specialty medication, . We spoke to patient. At this point, unless the patient requests further assistance we will discontinue any further outreach attempts. Additional Notes: No Avril Hammer 08/17/21 8:53 AM documented in this encounter Plan of Treatment Upcoming Encounters Date Type Specialty Care Team Description 06/16/2022 Laboratory Appointment Lab 06/16/2022 Office Visit Cardiology Gianna Lorenzana PA [facility] Cardiology Dept [place], [place] [address] (Wo rk) Scheduled Procedures Name [...] and Facing Tad A, Understanding Action Plan [facility] Note: Formatting of this note might be d ifferent from the original. Maintain 100% adherence to Entresto twic e daily regimen documented as of this encounter Visit Diagnoses Not on filedocumented in this encounter Care Teams Tanker Serviceman Relationship Specialty Start Date End Date Pricila Geller APRN PCP - General Family Medicine 11/24/18 [address] [place] [address] documented as of this encounter
--- OUTSIDE RECORDS SUMMARY | 2022-05-20 07:37 | XMS_ITS | Encounter Summary ---
:1955 Author Organization [facility] [place] [address] Care Team Providers Name Role Phone Pricila Geller APRN Primary Care Provider Encounter Details Date Type Department Care Team Description 08/11/2021 Notes Only [place] [address] Social History Tobacco Use Types Packs/Day [...] this encounter Progress Notes Tarik Cage - 08/11/2021 11:53 AM EDT I sent a letter and the application for assistance with ENTRESTO to the patient for them to complete, sign and return to the Medication Assistance Program. The MAP office will follow up with the patient in 5 business days to see if the patient has received the application and if they have any questions. documented in this encounter Plan of Treatment Upcoming Encounters Date Type Specialty Care Team Description 06/16/2022 Laboratory Appointment Lab 06/16/2022 Office Visit Cardiology Gianna Lorenzana PA [facility] er Cardiology Dept [place], [place] [address] (Wo rk) Scheduled Procedures Name [...] on filedocumented in this encounter Care Teams Passenger Flagman Relationship Specialty Start Date End Date Pricila Geller APRN PCP - General Family Medicine 11/24/18 [place] [address] documented as of this encounter
--- OUTSIDE RECORDS SUMMARY | 2022-05-20 07:37 | XMS_ITS | Encounter Summary ---
:1955 Author Organization [facility] [place] [address] Care Team Providers Name Role Phone Pricila Geller APRN Primary Care Provider Encounter Details Date Type Department Care Team Description 07/13/[address] [facility] [place] Vu, [facility] [place] [address] [place] [address] [place], [place] [address] (Wo rk) Social History Tobacco [...] 06/16/2022 Office Visit Cardiology Gianna Lorenzana PA [facility] er Cardiology Dept [place], [place] [address] (Wo rk) Scheduled Procedures Name [...] Progress DH Home Medication Patient No Daniela n, Compliance and Facing Tad A, Understanding Action Plan [facility] Note: Formatting of this note might be d ifferent from the original. Maintain 100% adherence to Entresto twic e daily regimen documented as of this encounter Visit Diagnoses Diagnosis Chronic systolic heart failure documented in this encounter Care Teams Ground Water Contractor Relationship Specialty Start Date End Date Pricila Geller APRN PCP - General Family Medicine 11/24/18 [facility] [place] [address] documented as of this encounter
--- OUTSIDE RECORDS SUMMARY | 2022-05-20 07:37 | XMS_ITS | Encounter Summary ---
:1955 Author Organization [facility] [address] Care Team Providers Name Role Phone Pricila Geller JOELLE Primary Care Provider Reason for Visit Reason Comments Establish Care Consultation (Routine) - Closed Specialty Diagnoses / Procedures Referred By Contact Refer red To Contact General Surgery Diagnoses RUQ pain Calculus of bile duct without cholangitis or cholecystitis without obstruction Edwin Grubbs, [facility] Gen Surgery [address] [place] [address] [place] [address] Phone: Fax: Referral ID Status Reason Start Date Expiration Date Visits V isits Requested Authorized [id number] Closed Consult, 2021 2022 1 1 Test & Treat Encounter Details Date Type Department Care Team Description 01/28/2021 Office Visit General Surgery at [facility] Mo Flores MD Gall[place] [address] GENERAL SURGERY [phone] [place], [place] [address] (Wo rk) Social History Tobacco [...] Sign Reading Time Taken Comments Blood Pressure 107/69 01/28/2021 3:01 PM EST Pulse 79 01/28/2021 3:01 PM EST Temperature 36.8 ??C (98.3 ??F) 01/28/2021 3:01 PM EST Respiratory Rate 16 01/28/2021 3:01 PM EST Oxygen Saturation 98% 01/28/2021 3:01 PM EST Inhaled Oxygen Concentration - - Weight 80.3 kg (177 lb) 01/28/2021 3:01 PM EST Height 175.3 cm (5' 9.02) 01/28/2021 3:01 PM EST Body Mass Index 26.13 01/28/2021 3:01 PM EST documented in this encounter Progress Notes Mo Flores MD - 01/28/2021 3:00 PM EST Patient is a 66-year-old gentleman who presents for discussion regarding his gallstones seen on recent imaging. Understanding he was having imaging to look at his liver to follow-up his hepatitis C. Atthat time he was noted to have the finding of gallstones without any evidence of cholecystitis. He describes pain in his right lower back really quite posterior close to the spine its worse in the morning and gets better over the course of the day. 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 I told him I think these are incidental findings of gallstones and currently there is no patient population we recommend cholecystectomy for incidental gallstones. I also gave the patient information booklet about gallstones and gallbladder surgery and what to look for in terms of symptoms that would be more likely attributable to these gallstones and if that should ever change he should seek surgery at that point and I be happy to see him back. He seems comfortable with this plan documented in this encounter Plan of Treatment Upcoming Encounters Date Type Specialty Care Team Description 06/16/2022 Laboratory Appointment Lab 06/16/2022 Office Visit Cardiology Gianna Lorenzana PA [facility] Cardiology Dept [place], [place] [address] (Wo rk) Scheduled Procedures Name Priority Associated Diagnoses Date/Time EGD, UPPER GI ENDOSCOPY Chronic cough Heartburn RUQ pain Fecal urgency Dysphagia, unspecifi ed type History of hepatitis C COLONOSCOPY, DIAGNOSTIC Chronic cough Heartburn RUQ pain Fecal urgency Dysphagia, unspecifi ed type History of hepatitis C Scheduled Referrals Name Type Priority Associated Diagnoses Order S chedule Referral to Outpatient Referral Routine RUQ pain Ordered: General Surgery Calculus of bile duct without cholangitis or cholecystitis without obstruction documented as of this encounter Goals Goal Patient Goal Associated Recent Patient-Stated? Author Type Problems Progress DH Home Medication Patient No Daniela ward, Compliance and Facing Tad A, Understanding Action Plan [facility] Note: Formatting of this note might be d ifferent from the original. Maintain 100% adherence to Entresto twic e daily regimen documented as of this encounter Visit Diagnoses Diagnosis Gallstones Calculus of gallbladder without mention of cholecystitis or obstruction documented in this encounter Care Teams Primary Grade Teacher Relationship Specialty Start Date End Date Pricila Geller APRN PCP - General Family Medicine 11/24/18 [address] [place] [address] documented as of this encounter
--- OUTSIDE RECORDS SUMMARY | 2022-05-20 07:37 | XMS_ITS | Encounter Summary ---
:1955 Author Organization [facility] Address [facility] [place] [address] Care Team Providers Name Role Phone DuyenPricila JOELLE Primary Care Provider Reason for Visit Reason Onset Date Comments Medication Refill 03/16/2021 Encounter Details Date Type Department Care Team Description 03/16/2021 [place]ill [place] [facility] [place] Edwin Grubbs, Chronic cough; [facility] Missy paetl APRN Heartburn; [place] [address] [facility] RUQ pain; [phone] Fecal urgency; [place], [place] [address] Dysphagia, unspecified type; [phone] History of hepa titis C (Work) Social History Tobacco Use Types Packs/Day Years [...] 06/16/2022 Office Visit Cardiology Gianna Lorenzana PA [facility] er Cardiology Dept [place], [place] [address] (Wo rk) Scheduled Procedures Name [...] Tad A, Understanding Action Plan [facility] Note: Formatting of this note might be d ifferent from the original. Maintain 100% adherence to Entresto twic e daily regimen documented as of this encounter Visit Diagnoses Diagnosis Chronic cough Cough Heartburn RUQ pain Abdominal pain, right upper quadrant Fecal urgency Dysphagia, unspecified type History of hepatitis C Personal history of other infectious and parasitic disease documented in this encounter Care Teams Colorist Relationship Specialty Start Date End Date Pricila Geller APRN PCP - General Family Medicine 11/24/18 Jessica [facility] [place] [address] documented as of this encounter
--- OUTSIDE RECORDS SUMMARY | 2022-05-20 07:37 | XMS_ITS | Encounter Summary ---
:1955 Author Organization [facility] [place] [address] Care Team Providers Name Role Phone BenjamínPricila marcus JOELLE Primary Care Provider Reason for Visit Reason Onset Date Comments Appointment 04/29/2021 Encounter Details Date Type Department Care Team Description 04/29/2021 [place]phone [place] [facility] [place] Chapman MD Appointment [facility] [place] [address] NEUROLOGY DEPT [phone] [place] [address] (Wo rk) Social History Tobacco Use Types [...] this encounter Miscellaneous Notes Telephone Encounter - Maki Sr - 04/29/2021 9:56 AM EDT Patient needing hospital check with Dr. Chapman. First available. documented in this encounter Plan of Treatment Upcoming Encounters Date Type Specialty Care Team Description 06/16/2022 Laboratory Appointment Lab 06/16/2022 Office Visit Cardiology Gianna Lorenzana PA [facility] er Cardiology Dept [place], [place] [address] (Wo rk) Scheduled Procedures Name [...] Tad A, Understanding Action Plan [facility] Note: Formatting of this note might be d ifferent from the original. Maintain 100% adherence to Entresto twic e daily regimen documented as of this encounter Visit Diagnoses Not on filedocumented in this encounter Care Teams Chemical Dependency Therapist Relationship Specialty Start Date End Date Pricila Geller APRN PCP - General Family Medicine 11/24/18 [address] [place] [address] documented as of this encounter
--- OUTSIDE RECORDS SUMMARY | 2022-05-20 07:37 | XMS_ITS | Encounter Summary ---
:1955 Author Organization [facility] [place] [address] Care Team Providers Name Role Phone Pricila Geller APRN Primary Care Provider Reason for Visit Reason Comments Medication Refill Encounter Details Date Type Department Care Team Description 06/16/2021 Specialty Pharmacy [place] [facility] [place] [address] Social History Tobacco Use Types Packs/Day Years [...] documented as of this encounter Progress Notes Shellie Walker RPH - 06/16/2021 2:24 PM EDT Clinical Management Plan: Refill Specialty Pharmacy Consultation; Shellie Walker [facility] Comprehensive Medication Management (CMM) Cong Khan is a 66 y.o. (1955) male who refilled their specialty medication, Entresto , without speaking to a apparel trimmings sales representative from the Specialty Pharmacy. The medication was refilled on06/16/21 for a 30 day supply for $0 copay. Adherence: Gaps in fill history: no Was a change made to the Care Plan: no If yes, should the medication be held: No The specialty pharmacy staff will follow up with the patient 5-7 days prior to next refill for reminder if needed. Shellie Walker RPH 06/16/21 2:25 PM documented in this encounter Plan of Treatment Upcoming Encounters Date Type Specialty Care Team Description 06/16/2022 Laboratory Appointment Lab 06/16/2022 Office Visit Cardiology Gianna Lorenzana PA [facility] er Cardiology Dept [place], [place] [address] (Wo rk) Scheduled Procedures Name [...] Tad A, Understanding Action Plan [facility] Note: Formatting of this note might be d ifferent from the original. Maintain 100% adherence to Entresto twic e daily regimen documented as of this encounter Visit Diagnoses Not on filedocumented in this encounter Care Teams Fusion Operator Relationship Specialty Start Date End Date Pricila Geller APRN PCP - General Family Medicine 11/24/18 [address] [place] [address] documented as of this encounter
--- OUTSIDE RECORDS SUMMARY | 2022-05-20 07:37 | XMS_ITS | Encounter Summary ---
:1955 Author Organization [place] [address] Care Team Providers Name Role Phone Pricila Geller APRN Primary Care Provider Reason for Visit Reason Comments Medication Refill Encounter Details Date Type Department Care Team Description 10/20/2021 Refill Cardiology at [facility] Lali Vu Medication Refill [facility] [place] [address] [facility] [phone] [place], [place] [address] (Wo rk) Social History Tobacco [...] this encounter Miscellaneous Notes Telephone Encounter - Lianet Noe RN - 10/22/2021 3:42 PM EST MALORIE: 06/15/21 Per assessment and Plan: #Afib: EKG today sinus rhythm with frequent PVCs and left bundle branch block at 164 ms, TSH 1.28, K5.1, Mg 0.94 DCCV/Ablation: None Rate Control: Metoprolol succinate 150 mg in the morning and 100 mg in the evening Rhythm Control: None at this time, pending PVC burden, may need to consider antiarrhythmic in the future. Anticoagulation: Apixiban 2.5mg BID Next f/u visit scheduled for: 12/02/21 Lianet Noe coal handling supervisor [facility] at [facility] [id number] documented in this encounter Plan of Treatment Upcoming Encounters Date Type Specialty Care Team Description 06/16/2022 Laboratory Appointment Lab 06/16/2022 Office Visit Cardiology Gianna Lorenzana PA [facility] Dr Cardiology Dept [place], [place] [address] (Wo rk) Scheduled Procedures Name Priority Associated [...] Facing Tad A, Understanding Action Plan [facility] Note: Formatting of this note might be d ifferent from the original. 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
--- OUTSIDE RECORDS SUMMARY | 2022-05-20 07:37 | XMS_ITS | Encounter Summary ---
:1955 Author Organization [facility] [place] [address] Care Team Providers Name Role Phone Pricila Geller APRN Primary Care Provider Encounter Details Date Type Department Care Team Description 08/26/2021 Notes Only Care [place] [address] Social History Tobacco Use Types Packs/Day [...] this encounter Progress Notes Tarik Cage - 08/26/2021 11:05 AM EDT I faxed the application for assistance with ENTRESTO to [facility] I will follow through once the occupational therapy technician program makes a decision. documented in this encounter Plan of Treatment Upcoming Encounters Date Type Specialty Care Team Description 06/16/2022 Laboratory Appointment Lab 06/16/2022 Office Visit Cardiology Gianna Lorenzana PA [facility] Cardiology Dept [place], [place] [address] (Wo rk) Scheduled Procedures Name [...] Facing Tad A, Understanding Action Plan [facility] Note: Formatting of this note might be d ifferent from the original. Maintain 100% adherence to Entresto twic e daily regimen documented as of this encounter Visit Diagnoses Not on filedocumented in this encounter Care Teams On Site Nurse Relationship Specialty Start Date End Date Pricila Geller APRN PCP - General Family Medicine 11/24/18 [address] [place] [address] documented as of this encounter
--- OUTSIDE RECORDS SUMMARY | 2022-05-20 07:37 | XMS_ITS | Encounter Summary ---
:1955 Author Organization [facility] [place] [address] Care Team Providers Name Role Phone Pricila Geller APRN Primary Care Provider Reason for Visit Reason Comments Medication Refill Encounter Details Date Type Department Care Team Description 04/22/2021 Specialty Pharmacy Pharmacy at [facility] Shellie [place] [address] Social History Tobacco Use Types Packs/Day Years [...] encounter Progress Notes Shellie Walker RPH - 04/22/2021 2:48 PM EDT Clinical Management Plan: Refill Specialty Pharmacy Consultation; Shellie Walker [facility] Comprehensive Medication Management (CMM) Cong Khan is a 66 y.o. (1955) male who was contacted in regard to a specialty medication refill reminder. Contact made with patient regarding Entresto. A review of the medication therapywas performed. The medication was refilled as scheduled, and all medication related questions and concerns were addressed. The specialty pharmacy staff will follow up with the patient 5-7 days prior tonext refill. Was a change made to the Care Plan: No Allergies and Drug intolerance: No Known Allergies Medication Reconciliation Discrepancies (compared to [facility] med list) No Specialty Pharmacy Refill Questionnaire Refill Questionnaire 04/22/2021 What is the name of the specialty medication you are refilling? Entresto Are you taking any new medications? No Please explain - Any new medical condition? No Any new allergies? No Any new side effects that are bothersome? No What date will you need this fill by? 04/29/2021 Adherence: Any missed doses? No Patient understands no changes to current drug regimen were made.. Shellie Walker RPH 04/22/21 2:49 PM documented in this encounter Plan of Treatment Upcoming Encounters Date Type Specialty Care Team Description 06/16/2022 Laboratory Appointment Lab 06/16/2022 Office Visit Cardiology Gianna Lorenzana PA [facility] er Cardiology Dept [place], [place] [address] (Wo rk) Scheduled Procedures Name [...] on filedocumented in this encounter Care Teams Electric Track Switch Maintainer Relationship Specialty Start Date End Date Pricila Geller APRN PCP - General Family Medicine 11/24/18 [place] [address] documented as of this encounter
--- OUTSIDE RECORDS SUMMARY | 2022-05-20 07:37 | XMS_ITS | Encounter Summary ---
:1955 [place] [address] Care Team Providers Name Role Phone Pricila Geller APRN Primary Care Provider Reason for Referral Diagnostic Test (Routine) - Closed Specialty Diagnoses / Procedures Referred By Contact Refer red To Contact Diagnoses Atrial fibrillation, unspecified type Chetan Hoff MD Procedures Ziopatch 48 Hrs-[address] [facility] [place] [address] Referral ID Status Reason Start Date Expiration Date Visits V isits Requested Authorized [id number] Closed Specialty 03/25/2021 03/25/2022 1 1 Service Requested Reason for Visit Auth/Cert Specialty Diagnoses / Procedures Referred By Contact Refer red To Contact Diagnoses Atrial fibrillation, unspecified type AMS (altered mental status) Referral ID Status Reason Start Date Expiration Date Visits Requ ested Visits Authorized [id number] 1 1 Encounter Details Date Type Department Care Team Description 03/25/2021 Hospital Encounter Non-Invasive Atrial fi brillation, Cardiology Lab [place] [address] Social History Tobacco Use Types Packs/Day [...] Sig Dispensed Refills Start Date End Date cholecalciferol, Vitamin Take by mouth. 0 D3, (D3-2000) 50 mcg (2,000 unit) Capsule fish oil-omega-3 fatty Take 1,200 mg by 0 acids 1,000 mg Capsule mouth daily. b complex vitamins Capsule Take 1 capsule by 0 mouth daily. NETTLE LEAF ORAL Take by mouth. 0 folic acid (Folvite) 1 mg Take 1 mg by 0 Tablet mouth daily. tamsulosin (FLOMAX) 0.4 mg 0.4 mg daily. 11 2018 Capsule finasteride (PROSCAR) 5 mg 5 mg daily. 11 08/06/20 19 Tablet aspirin 81 mg Tablet, Take 81 mg by 30 tablet 3 09/08/2017 Chewable mouth daily. torsemide (Demadex) 10 mg Take 1 tablet by 90 tablet 3 01/202103/08/2022 TabletIndications: Chronic mouth daily. systolic heart failure sacubitriL-valsartan Take 1 tablet by 60 tablet 3 07/13/2021 (Entresto) 97-103 mg mouth 2 times Tablet tabletIndications: daily. Chronic systolic heart failure esomeprazole (NexIUM) 20 Take 1 capsule by 180 capsule 3 06/24/2021 mg Capsule, Delayed mouth 2 times Release(E.C.)Indications: daily. Chronic cough, Heartburn, RUQ pain, Fecal urgency, Dysphagia, unspecified type, History of hepatitis C metoprolol succinate XL Take 1 tablet by [...] Sustained Release 24 with 100 mg tab hrIndications: Chronic in in am for systolic heart failure, total of 150 mg Atrial fibrillation, in am. unspecified type apixaban (Eliquis) 2.5 mg Take 1 tablet by 180 tablet 3 06/202010/23/2021 TabletIndications: Atrial mouth 2 times fibrillation, unspecified daily. type, Cerebrovascular accident (CVA) due to embolism of right middle cerebral artery documented as of this encounter Plan of Treatment Upcoming Encounters Date Type Specialty Care Team Description 06/16/2022 Laboratory Appointment Lab 06/16/2022 Office Visit Cardiology Gianna Lorenzana PA [facility] Cardiology Dept [place], [place] [address] (Wo rk) Scheduled Procedures Name [...] A, Understanding Action Plan [facility] Note: Formatting of this note might be d ifferent from the original. Maintain 100% adherence to Entresto twic e daily regimen documented as of this encounter Procedures Procedure Name Priority Date/Time Associated Diagnosis Comme nts ZIOPATCH 48 HRS-15 Routine 03/25/2021 5:23 PM Atrial fibrillat ion, Results for this DAYS EDT unspecified type procedure a re in the results section. documented in this encounter Results Ziopatch 48 Hrs-15 Days (03/25/2021 5:23 PM EDT) Specimen (Source) Anatomical Location Collection Method / Collectio n Time Received Time / Laterality Volume Narrative Deric Monterroso MD - 04/24/2021 3:44 PM EDT [facility] ? Zio Patch? Ambulatory Cardiac Event Monitor Report Duration of recording ? 12 days 4 hours (after artifact removed) Summary Data Predominant rhythm ? atrial fibrillation/flutter Minimum rate 27 bpm (12:34 AM) Average heart rate 76 bpm There were 17 pauses, longest 3.8 second s (asymptomatic, during nighttime hours) Ectopic beats Occasional (3.1%) ventricular premature beats (VPC's) ?? -Ventricular bigeminy (longest episo petra >40 minutes) and trigeminy (longest episode ~1 min) present There were 4 runs of non-sustained VT - fastest and longest 12 beats (max rate 176 bpm) Triggered and Patient Diary Events There were 6 triggered and 5 patient tirso ry events: - Diary (skipped/irregular beat) - atri al fibrillation, with PVCs, including ventricular bigeminy - Majority of triggered events - atrial fibrillation with PVCs Conclusion(s): ?? 1) 100% burden of atrial fibrillation/fl utter with well-controlled ventricular rate (76 bpm). 2) Majority of symptomatic events corres pond to atrial fibrillation with PVCs, including ventricular bigeminy. 3) 17 pauses occurred, longest 3.8 secon ds, all asymptomatic. Saul Huerta MD CARDIAC SERVICES ORDERABLES documented in this encounter Visit Diagnoses Diagnosis Atrial fibrillation, unspecified type documented in this encounter Care Teams Fitness And Wellness Instructor Relationship Specialty Start Date End Date Pricila Geller APRN PCP - General Family Medicine 11/24/[address] [place] [address] documented as of this encounter
--- OUTSIDE RECORDS SUMMARY | 2022-05-20 07:37 | XMS_ITS | Encounter Summary ---
:1955 Author Organization [facility] [place] [address] Care Team Providers Name Role Phone Pricila Geller APRN Primary Care Provider Reason for Visit Reason Comments Medication Management Encounter Details Date Type Department Care Team Description 07/13/2021 Specialty [place] [facility] [place] Medication Management [facility] [place] [id number] Social History Tobacco Use Types Packs/Day Years [...] documented as of this encounter Progress Notes Caroline Wilson RPH - 07/13/2021 11:37 AM EDT Clinical Management Plan: Transfer of Care/Discharge Specialty Services Specialty Pharmacy Consultation; Caroline Wilson [facility] Comprehensive Medication Management (CMM) Cong Khan [address] [facility] [address] Telephone Information: Work Phone Not on file. Is the patient transferring services to a different Specialty Pharmacy or discontinuing the medication? Transferring Services Medication: Entresto 97-103mg Reason for discontinuation or transfer: Patient managing own refills Approximate date of discontinuation or transfer: 07/13/21 Patient's response to therapy: n/a Summary of services provided by D- Specialty: n/a Summary of on-going needs: n/a Referral for additional services (if applicable): no Is patient aware of referral? yes - spoke to another [facility] Instructions provided to patient about discharge/transfer: no Provider aware of discontinuation or transfer: yes Patient understands no changes to current drug regimen were made at the appointment and that [facility] is providing recommendations (summary located at top of note) for provider review and follow up. Caroline Wilson Rosalinda 07/13/21 11:41 AM documented in this encounter Plan of Treatment Upcoming Encounters Date Type Specialty Care Team Description 06/16/2022 Laboratory Appointment Lab 06/16/2022 Office Visit Cardiology Gianna Lorenzana PA [facility] Cardiology Dept [place], [place] [address] (Wo rk) Scheduled Procedures Name [...] and Facing Tad A, Understanding Action Plan [facility] Note: Formatting of this note might be d ifferent from the original. Maintain 100% adherence to Entresto twic e daily regimen documented as of this encounter Visit Diagnoses Not on filedocumented in this encounter Care Teams Wireworker Relationship Specialty Start Date End Date Pricila Geller APRN PCP - General Family Medicine 11/24/18 [place] [address] documented as of this encounter
--- OUTSIDE RECORDS SUMMARY | 2022-05-20 07:37 | XMS_ITS | Encounter Summary ---
:1955 Author Organization [facility] [place] [address] Care Team Providers Name Role Phone Pricila Geller APRN Primary Care Provider Encounter Details Date Type Department Care Team Description 08/25/2021 Notes Only Care Management [place] [address] Social History Tobacco Use Types Packs/Day [...] this encounter Progress Notes Tarik Cage - 08/25/2021 4:34 PM EDT I sent the application for assistance with ENTRESTO to DR. TIMOTHY LASSITER for their signature and prescription. I will follow through with the remainder of the application once everything is returned to me. documented in this encounter Plan of Treatment Upcoming Encounters Date Type Specialty Care Team Description 06/16/2022 Laboratory Appointment Lab 06/16/2022 Office Visit Cardiology Gianna Lorenzana PA [facility] er Cardiology Dept [place], [place] [address] (Wo rk) Scheduled Procedures Name [...] Patient No Daniela n, Compliance and Facing Atd A, Understanding Action Plan [facility] Note: Formatting of this note might be d ifferent from the original. Maintain 100% adherence to Entresto twic e daily regimen documented as of this encounter Visit Diagnoses Not on filedocumented in this encounter Care Teams Data Entry Representative Relationship Specialty Start Date End Date Pricila Geller APRN PCP - General Family Medicine 11/24/18 [place] [address] documented as of this encounter
--- OUTSIDE RECORDS SUMMARY | 2022-05-20 07:37 | XMS_ITS | Encounter Summary ---
:1955 Author Organization [facility] [place] [address] Care Team Providers Name Role Phone Duyen Pricila JOELLE Primary Care Provider Encounter Details Date Type Department Care Team Description 03/27/2021 Telephone Gastroenterology at [facility] Samuel Esparza [facility] [address] Social History Tobacco Use Types Packs/Day [...] this encounter Miscellaneous Notes Telephone Encounter - Samuel Esparza RN - 03/27/2021 3:50 PM EDT Returned call to patient to discuss below. Patient is aware that our office will cancel his scheduled procedure in endoscopy for next week. Patient will contact our office to reschedule procedure once he has been cleared from Cardiology and Neurology. Forwarding to Edwin Grubbs APRN and our secretarial pool to cancel procedure. Telephone Encounter - Samuel Esparza RN - 03/27/2021 3:13 PM EDT Patient calls the office leaving a message on the RN voicemail stating that he was discharged from the hospital at [facility] in [place] and has a procedure scheduled next week and wonders if he should come for visit as they are still working on finding out the cause of what happened. Forwarding to Edwin Grubbs APRN for review. documented in this encounter Plan of Treatment Upcoming Encounters Date Type Specialty Care Team Description 06/16/2022 Laboratory Appointment Lab 06/16/2022 Office Visit Cardiology Gianna Lorenzana PA [facility] Cardiology Dept [place], [place] [address] (Wo rk) Scheduled Procedures Name [...] on filedocumented in this encounter Care Teams Bricklayer Supervisor Relationship Specialty Start Date End Date Pricila Geller APRN PCP - General Family Medicine 11/24/18 [address] [place] [address] documented as of this encounter
--- OUTSIDE RECORDS SUMMARY | 2022-05-20 07:37 | XMS_ITS | Encounter Summary ---
:1955 Author Organization [facility] [address] Care Team Providers Name Role Phone BenjamínPricila marcus JOELLE Primary Care Provider Reason for Visit Speech Therapy (Routine) - Closed Specialty Diagnoses / Procedures Referred By Contact Refer red To Contact Speech Pathology / Diagnoses Chronic cough Heartburn RUQ pain Fecal urgency Dysphagia, unspecified type History of hepatitis C Office Swallow Edwin Grubbs, [facility] Color Maker Rehab Speech Therapy SCRAPER OPERATOR [facility] [place] [phone] Fax: Referral ID Status Reason Start Date Expiration Date Visits V isits Requested Authorized [id number] Closed Evaluate and 12/10/2020 12/10/2021 1 1 Treat Encounter Details Date Type Department Care Team Description 01/21/2021 Office Visit Speech Therapy at Daniel Nicole Dyspha gia [facility] CANDY SEPARATOR HARD unspecified type [facility] [address] [place] PHYSICAL MEDICINE & [address] REHABILITAT [phone] [place] [address] Social History Tobacco Use Types Packs/Day Years [...] documented as of this encounter Miscellaneous Notes Initial Evaluation - Daniel Nicole, CANDY SEPARATOR HARD - 01/21/2021 9:00 AM EST Speech-Language Pathology Office Swallow Evaluation 01/21/2021 9:24 AM 1955 Referring MD: Edwin Grubbs SCRAPER OPERATOR Date seen by referring MD: 01/14/21 Total Treatment Time: 25 min. Total Timed Code Treatment: 0 min. Certification Period: Eval Only. KX modifier used beginning on date: Not applied. History: Patient is a 66 y.o. male with c/o difficulty swallowing solids and cough. PMH as below. EGD is planned in the future. PMH: Past Medical History: Diagnosis Date ??? Alcohol use disorder ??? Atrial fibrillation ??? CHF (congestive heart failure) ??? Hypertension ??? Mitral valve prolapse ??? Stroke S: ?? Pt. Arrived for appointment. ?? He reports sensation of solids getting stuck at level of inferior sternum, midline. ?? He reports coughing occurs at any time, but suggests coughing has subsided significantly since taking nexium. He reports prescription has recently run out. ?? Pt also reports effectiveness in reducing cough by utilizing a cough drop. ?? Pt. denies pain at this time. O: Current diet: Regular diet and thin liquids. Respiratory Status: On RA. Cough is noted at random moments prior to feeding and following feeding. Feeding / Oral Care Status: Independent. Oral / Laryngeal Mechanism Clinical Assessment: Lingual: Normal tongue movement in all planes. Normal articulation. Labial: Normal protrusion and retraction. Normal articulation. Velar: Uvula is midline. Velar elevation is present. Vocal fold function and airway protection: Vocal quality is clear. Cough is strong. Bolus Presentation(s) ??? Thin liquid, ??? Puree ??? Regular consistency Oral Preparatory Phase Mastication: Normal. Oral Transit: Timely across consistencies. Bolus Cohesion: Appears functional. Labial Seal / Loss: Negative. Oral Stasis: Negative. Pharyngeal Phase ?? Initiation: Appears timely. ?? Laryngeal Elevation: Normal to palpation. ?? Vocal quality change: No change. ?? Cough: Cough was not timed with swallow and occurred once during feeding well after swallowing. Cough was more frequent prior to feeding. ?? Pt. complaint of food getting stuck: Negative during this assessment. Pt is unable to voluntarilyretch bolus material back to oral cavity. Esophageal Phase Appears to be WFL, No overt clinical s/s of esophageal phase dysphagia noted during this evaluation. A: Dx: Normal oral swallow with functionally appearing pharyngeal swallow. Summary: Pt presents with normal oral manipulation of bolus material across consistencies. No overt signs of aspiration or pharyngeal dysphagia. Pt reports coughing has subsided since taking nexium raising question of acid irritation to pharynx leading to cough. Pt also reports relief of cough with use of cough drops. Cough drops result in increased swallowing and salivation production. This may also offer support of improved management of acid. Given pt is successful with cough drops, I would suggest continued use of these. Education: Discussed anatomy and physiology of oropharyngeal swallow. Discussed suspicion for pharyngeal irritation related to MARTHA leading to cough. Suspect use of cough drops is best way to compensate for this. P: RECOMMENDATIONS: ??? Regular diet and thin liquids. ??? Upright to feed. ??? Continue use of cough drops to reduced coughing. ??? Consider continued use of PPI if GI feels beneficial. Frequency of care: ??? No Speech Pathology intervention recommended at this time. ??? Pt is in agreement with treatment plan. Short-Term Goals: ??? N/a Long-Term Goals: ?? N/a Thank you for this consult with this patient. Please feel free to page me with any questions or concerns. Daniel Nicole MS, CCC-CANDY SEPARATOR HARD Inpatient Rehabilitation Medicine Pager: # [phone] documented in this encounter Plan of Treatment Upcoming Encounters Date Type Specialty Care Team Description 06/16/2022 Laboratory Appointment Lab 06/16/2022 Office Visit Cardiology Gianna Lorenzana PA [facility] Cardiology Dept [place], [place] [address] (Wo rk) Scheduled Procedures Name Priority Associated Diagnoses Date/Time EGD, UPPER GI ENDOSCOPY Chronic cough Heartburn RUQ pain Fecal urgency Dysphagia, unspecifi ed type History of hepatitis C COLONOSCOPY, DIAGNOSTIC Chronic cough Heartburn RUQ pain Fecal urgency Dysphagia, unspecifi ed type History of hepatitis C Scheduled Referrals Name Type Priority Associated Diagnoses Order S chedule Referral to Speech Outpatient Referral Routine Chronic c ough Ordered: Therapy Heartburn 12/10/2020 RUQ pain Fecal urgency Dysphagia, unspecified type History of hepatitis C documented as of this encounter Goals Goal Patient Goal Associated Recent Patient-Stated? Author Type Problems Progress DH Home Medication Patient No Daniela ward, Compliance and Facing Tad A, Understanding Action Plan [facility] Note: Formatting of this note might be d ifferent from the original. Maintain 100% adherence to Entresto twic e daily regimen documented as of this encounter Visit Diagnoses Diagnosis Dysphagia, unspecified type documented in this encounter Care Teams Electrician Assistant Relationship Specialty Start Date End Date Pricila Geller APRN PCP - General Family Medicine 11/24/18 [place] [address] documented as of this encounter
--- OUTSIDE RECORDS SUMMARY | 2022-05-20 07:37 | XMS_ITS | Encounter Summary ---
:1955 Author Organization [facility] Address [facility] [place] [address] Care Team Providers Name Role Phone BenjamínPricila marcus JOELLE Primary Care Provider Reason for Visit Reason Onset Date Comments Other 04/10/2021 Encounter Details Date Type Department Care Team Description 04/10/2021 Telephone Neurology at [facility] Saul Huerta MD Other [facility] [address] NEUROLOGY DEPT. [phone] [place], [place] [address] (Wo rk) Social History Tobacco [...] this encounter Miscellaneous Notes Telephone Encounter - Jeremias February - 04/10/2021 2:15 PM EDT Call Center/Grade Setter Message ED Follow Up Provider patient sees in clinic: Dr. Huerta Caller and relationship (if other than patient): self Call back number: [phone] Ok to leave a message: y Reason for call: Patient needs ED Follow UP Reason patient was seen in the ED: post stroke seizures Which ED was patient seen in: [facility] Have records been sent from ED: yes Disposition of call: ??? Red arrow message to Grade Setter- Reason for red arrow message: n ??? Routine message to [place]: y Nurse/[place] contacted via: Message: y Call: n Pager: n documented in this encounter Plan of Treatment Upcoming Encounters Date Type Specialty Care Team Description 06/16/2022 Laboratory Appointment Lab 06/16/2022 Office Visit Cardiology Gianna Lorenzana PA [facility] Dr Cardiology Dept [place], [place] [address] (Wo rk) Scheduled Procedures Name [...] and Facing Tad A, Understanding Action Plan [facility] Note: Formatting of this note might be d ifferent from the original. Maintain 100% adherence to Entresto twic e daily regimen documented as of this encounter Visit Diagnoses Not on filedocumented in this encounter Care Teams Hotel Maid Relationship Specialty Start Date End Date Pricila Geller APRN PCP - General Family Medicine 11/24/18 [address] [place] [address] documented as of this encounter
--- OUTSIDE RECORDS SUMMARY | 2022-05-20 07:37 | XMS_ITS | Encounter Summary ---
:1955 Author Organization [facility] [place] [address] Care Team Providers Name Role Phone BenjamínPricila marcus JOELEL Primary Care Provider Encounter Details Date Type Department Care Team Description 03/27/2021 TH Visit Cardiology [place] [facility] [place] Gutierrez, Nutritional (TeleHealth) [facility] counseling [facility] [phone] [id number] Social History Tobacco Use Types Packs/Day Years [...] documented as of this encounter Progress Notes Sp Gutirerez, RD - 03/27/2021 1:00 PM EDT Images from the original note were not included. [facility] Cardiovascular Medicine Cardiology Nutrition Assessment [facility] [id number] Initial Nutrition Assessment 03/27/21 This visit was rescheduled from earlier this week when Cong was in-hospital. Identification and Chief Complaint Cong Khan is a 66 y.o. patient of Pricila Geller APRN referred to Cardiology Dietitian Vortex Operator by Dr. You for nutrition management of CHF, A. Fib, HTN in the setting of history of alcohol use disorder (sober 6 years), stroke (2017). 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 Brings home soups he makes there for supper; adds meat or tofu at home. Eats twice/day (brunch and supper). Lives with partner, Emeli, and a monk from [facility]. All share the cooking; mostly vegetarian. Past Diet History Cong has tried for the last 6 years to take good care of his body by following macrobiotic and many other diets, since he became sober. GI Screen Constipation - taking dulcolax, miralax, MOM, periocolace all prn 12/10/20 GI Note: 1-2 times a week he will have heartburn at night. Uses Tums and baking soda with water. Retrosternal burning. Does not believe heartburn occurs with certain foods at dinner. Denies regurgitation of acid or food. When he was still drinking heartburn was more frequent. Dysphagia to solids occurs once every few weeks. Uses water to force food bolus down. Paid Search Analyst food and peanut butter aremore likely to cause. Began a few years ago, stable. Denies coughing after drinking liquids. 01/21/21 Speech Therapy evaluation for dysphagia: RECOMMENDATIONS: ?? Regular diet and thin liquids. ?? Upright to feed. ?? Continue use of cough drops to reduced coughing. ?? Consider continued use of PPI if GI feels beneficial. Patient reports: Cong Khan's Overall Health Goal at this time is: I work with dietitians to set up the menus for the [facility] and cook everything from scratch, know about sodium. What do I need to do eat considering my kidneys? They said (in the hospital) that the medicine is affecting My kidneys. I need to take the medicine so what can I do with my diet to help them? Objective Estimated body mass index is 26.13 kg/m?? as calculated from the following: Height as of 01/28/21: 175.3 cm (5' 9.02). Weight as of 01/28/21: 80.3 kg (177 lb). Medications Current Outpatient Medications: ??? levETIRAcetam (Keppra) 500 mg Tablet, Take 1 tablet by mouth 2 times daily., Disp: 60 tablet, Rfl: 12 ??? torsemide (Demadex) 10 mg Tablet, Take 1 tablet by mouth daily., Disp: 90 tablet, Rfl: 3 ??? sacubitriL-valsartan (Entresto) 97-103 mg Tablet tablet, Take 1 tablet by mouth 2 times daily., Disp: 60 tablet, Rfl: 3 ??? esomeprazole (NexIUM) 20 mg Capsule, Delayed Release(E.C.), Take 1 capsule by mouth 2 times daily., Disp: 180 capsule, Rfl: 3 ??? cholecalciferol, Vitamin D3, (D3-2000) 50 mcg (2,000 unit) Capsule, Take by mouth., Disp: , Rfl: ??? fish oil-omega-3 fatty acids 1,000 mg Capsule, Take 1,200 mg by mouth 2 times daily., Disp: , Rfl: ??? b complex vitamins Capsule, Take 1 capsule by mouth daily., Disp: , Rfl: ??? NETTLE LEAF ORAL, Take by mouth., Disp: , Rfl: ??? folic acid (Folvite) 1 mg Tablet, Take 1 mg by mouth daily., Disp: , Rfl: ??? metoprolol succinate XL (Toprol-XL) 100 mg Tablet Sustained Release 24 hr, Take 1 tablet by mouth 2 times daily. Take extra 50 mg tab in am for total 150 mg in am & 100 mg in pm., Disp: 180 tablet, Rfl: 3 ??? metoprolol succinate XL (Toprol-XL) 50 mg Tablet Sustained Release 24 hr, Take 1 tablet by mouthdaily. Take with 100 mg tab in in am for total of 150 mg in am., Disp: 90 tablet, Rfl: 3 ??? apixaban (Eliquis) 2.5 mg Tablet, Take 1 tablet by mouth 2 times daily., Disp: 180 tablet, Rfl: 3 ??? tamsulosin (FLOMAX) 0.4 mg Capsule, 0.4 mg daily., Disp: , Rfl: 11 ??? finasteride (PROSCAR) 5 mg Tablet, 5 mg daily., Disp: , Rfl: 11 ??? aspirin 81 mg Tablet, Chewable, Take 81 mg by mouth daily., Disp: 30 tablet, Rfl: 3 Labs Lab Results Component Value Date RBC 4.82 03/25/2021 HCT 44.8 03/25/2021 HGB 15.2 03/25/2021 MCV 92.9 03/25/2021 MCHC 33.9 03/25/2021 RDWSD 47.7 (H) 03/25/2021 NA 139 03/25/2021 K 4.2 03/25/2021 CL 104 03/25/2021 CO2 19 (L) 03/25/2021 BUN 33 (H) 03/25/2021 CREATININE 1.57 (H) 03/25/2021 ESTGFR 45 (L) 03/25/2021 MAGNESIUM 0.93 03/25/2021 CALCIUM 9.1 03/25/2021 CALCIUM 9.1 03/25/2021 PHOS 3.3 03/25/2021 AST 17 03/25/2021 ALT 12 03/25/2021 ALKPHOS 43 03/25/2021 CHLPL 177 03/25/2021 HDL 73 03/25/2021 CHOLHDL 2.4 03/25/2021 TRIG 56 03/25/2021 LDLCHOL 82 06/19/2019 LDLDIRECT 102 03/25/2021 Recent Labs 03/25/21 0111 HA1C 5.2 24-hour food recall Medical Nutrition Therapy Assessment Estimated body mass index is 26.13 kg/m?? as calculated from the following: Height as of 01/28/21: 175.3 cm (5' 9.02). Weight as of 01/28/21: 80.3 kg (177 lb). IBW = 72.7 kg (160#) +/- 10% Kcal need = 25 to 30 kcals/kg IBW = 1800 to 2100 kcals/day Protein need = 0.8 g/kg ABW = 64 g/day SFA < 6% = 12 g/day Fluid needs: 25 to 30 ml/kg ABW = 2.1 L or more daily BMI is 25.0 to 29.9 Overweight (not obese) Nutrition related medication management Patient's nutritional status may be impacted by the following medications: MEDICATION POSSIBLE NUTRIENT DEPLETIONS x Betablockers, Statin CoQ10 x Acid Reducers Cobalamin (vit B12); Mg Nutrition-related labs TEST POSSIBLE NUTRIENTS IMPLICATED BUN Cr Protein RDWSD B6 ??? Potential for Malnutrition is low based on well-functioning gastro- intestinal system, usual eating pattern of 2 meals/day, food security, sufficient cooking knowledge and skills and adequate socialsupport. ?? Patient's current dietary habits are well balanced, though exact composition is difficult to determine due to the approximate nature of recall; appear to provide 0.6 g/kg ABW at 50 g/day. Provided guide for 65 g/day (0.8 g/kg ABW) and reviewed with Cong and Emeli, reinforcing the importance of consuming sufficient protein daily to meet basic physiological needs. Renal compromise is due to medications and this dietary approach should support kidney health at this time. ?? Sodium intake appears to be approximately 700 mg/day. Encouraged patient to liberalize this to atleast 1500 mg. Nutrition Diagnoses: Inadequate oral food or beverage intake Excessive fluid intake Inadequate fluid intake x Decreased nutrient need (sodium, protein) x Altered nutrition related lab values as identified above Increased energy intake x Inadequate energy intake Excessive energy intake Evident protein energy malnutrition x Inadequate protein intake Excessive protein intake Inadequate bioactive substance intake Excessive bioactive substance intake x Inadequate vitamin and/or mineral intake as identified in nutrient analysis Excessive vitamin intake x Altered GI function Underweight Involuntary weight loss Involuntary weight gain x Food and Nutrition-Related Knowledge Deficit Harmful beliefs/attitudes about food- or nutrition-related topics Not ready for diet / lifestyle change Self-monitoring deficit Limited adherence to nutrition related recommendations Undesirable food choices Limited access to foods OTHER: Nutrition Plan/Intervention/Recommendations ??? 1800 calorie, 2 gram sodium, 64 g protein diet (see Elevator Operator for diet plan and sample menu)with the goals: o Maintain muscle mass via sufficient protein-calorie intake and increased physical activity while limiting protein load on kidney function. o Liberalize sodium to at least 1500 mg/day. Nutrition Intervention 1. Reviewed diet pattern; answered questions concerning particular foods. Cong is highly-focused on doing what he needs to maintain his health. 2. Cong plans to e-mail me a list of his supplements to ask if any may damage his kidneys. Wishes to review this at our next visit in 2 weeks. Nutrition Recommendations ??? PCP, please check vitamin D level ??? Encourage intentional physical activity as appropriate as feeling of well- being improves Follow-up: 2 weeks Thank you for the privilege of working with Robert. Sp Gutierrez RDN, LD This is a TeleHealth Nutrition Visit. Patient verbalizes consent to the telehealth visit for nutrition counseling and coaching. Patient islocated at home. The current time is 1:00. Call ended time is:1:50. cc: ?? Pricila Geller APRN [address] [place] [address] documented in this encounter Plan of Treatment Upcoming Encounters Date Type Specialty Care Team Description 06/16/2022 Laboratory Appointment Lab 06/16/2022 Office Visit Cardiology Gianna Lorenzana PA [facility] Cardiology Dept [place], [place] [address] (Wo rk) Scheduled Procedures Name [...] Type Problems Progress DH Home Medication Patient Anika ward, Compliance and Facing Tad A, Understanding Action Plan [facility] Note: Formatting of this note might be d ifferent from the original. Maintain 100% adherence to Entresto twic e daily regimen documented as of this encounter Visit Diagnoses Diagnosis Nutritional counseling documented in this encounter Care Teams Digital Content Specialist Relationship Specialty Start Date End Date Pricila Geller APRN PCP - General Family Medicine 11/24/18 [place] [address] documented as of this encounter
--- OUTSIDE RECORDS SUMMARY | 2022-05-20 07:37 | XMS_ITS | Encounter Summary ---
:1955 Author Organization [facility] [place] [address] Care Team Providers Name Role Phone Pricila Geller APRN Primary Care Provider Reason for Visit Reason Comments Medication Refill Encounter Details Date Type Department Care Team Description 03/21/2021 Refill Cardiology at [facility] Lali Vu Medication Refill [facility] [place] [phone] [facility] [phone] [place], [place] [address] (Wo rk) Social History Tobacco [...] 06/16/2022 Office Visit Cardiology Gianna Lorenzana PA [facility] er Cardiology Dept [place], [place] [address] (Wo rk) Scheduled Procedures Name [...] Diagnoses Not on filedocumented in this encounter Additional Health Concerns Infection Onset Date Last Indicated Resolved Time Rule Out COVID-19 03/24/2021 03/24/2021 03/24/2021 2:0 4 PM EDT documented as of this encounter Care Teams Manager Parking Relationship Specialty Start Date End Date Pricila Geller APRN PCP - General Family Medicine 11/24/18 [address] [place] [address] documented as of this encounter
--- OUTSIDE RECORDS SUMMARY | 2022-05-20 07:37 | XMS_ITS | Encounter Summary ---
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 Increase Entresto to 97-103 mg bid pharmacy just refilled the 49-51 mg tabs. He will take 2 bid until he gets the 97-103 mg tabs, then will go to 1 tab bid. Recheck BMP a week after the changes. Pt has an appt on 04/01 at and would like to start the Torsemide decrease and the Entresto increase on 03/25/21 so he can co-ordinate the lab to be done at . Pt to call with any questions/concerns. Telephone Encounter - Prisca Eid RN - 03/13/2021 1:51 PM EDT Pt calling to report that his BP was elevated at his allergy testing this week. It was 140/106. Similar on the recheck. They refused to do the testing because of the elevated BP. His home BP today is still elevated at 135/105, HR 85. He is having dental issues, that may be contributing to the BP elevation. Otherwise is feeling good. Review of meds has him taking them as directed except he is out of the Prilosec, co-pay is $400 for 30 tabs. I got him set up with [facility] $31.86 for a 90 day supply. He is calling GALI Grubbs in to get his prescription transferred to his local [email or web address]. He is currently on Entresto 49-51 mg tab bid Torsemide 20 mg qd. He was supposed to decrease his Torsemide to 10 mg qd back in December due to rising BUN & Creatinine. Results for MEDINA KHAN ( ) as of 03/13/2021 13:57 Ref. Range 10/24/2020 13:24 01/09/2021 13:14 Sodium Latest Ref Range: 135 - 145 mmol/L 142 139 Potassium Latest Ref Range: 3.5 - 5.0 mmol/L 3.8 4.2 Chloride Latest Ref Range: 98 - 107 mmol/L 102 104 CO2 Latest Ref Range: 22 - 31 mmol/L 34 (H) 26 Anion Gap Latest Ref Range: 5 - 15 mmol/L 6 9 BUN Latest Ref Range: 10 - 20 mg/dL 22 (H) 33 (H) Creatinine Latest Ref Range: 0.80 - 1.50 mg/dL 1.45 1.57 (H) Estimated GFR Latest Ref Range: >=60 mL/min/1.73 m?? 49 (L) 45 (L) Calcium Latest Ref Range: 8.5 - 10.5 mg/dL 9.1 10.0 Glucose Lvl Latest Ref Range: 65 - 199 mg/dL 110 87 He did not and continues to take Torsemide 20 mg qd. documented in this encounter Plan of Treatment Upcoming Encounters Date Type Specialty Care Team Description 06/16/2022 Laboratory Appointment Lab 06/16/2022 Office Visit Cardiology Gianna Lorenzana PA [facility] er Cardiology Dept [place], [place] [address] (Wo rk) Scheduled Procedures Name [...] failure documented in this encounter Care Teams Archivist Military History Relationship Specialty Start Date End Date Pricila Geller APRN PCP - General Family Medicine 11/24/18 [address] [place] [address] documented as of this encounter
--- OUTSIDE RECORDS SUMMARY | 2022-05-20 07:37 | XMS_ITS | Encounter Summary ---
:1955 Author Organization [facility] [place] [address] Care Team Providers Name Role Phone Pricila Geller APRN Primary Care Provider Reason for Visit Reason Comments Medication Management Medication Refill Encounter Details Date Type Department Care Team Description 03/17/2021 Specialty Pharmacy [place] [facility] [place]ie Walker Medication [facility]; [place] [address] Social History Tobacco Use Types Packs/Day Years [...] encounter Progress Notes Shellie Walker RPH - 03/17/2021 4:16 PM EDT Specialty Pharmacy Consultation; Shellie Walker RPH Comprehensive Medication Management (CMM): Specialty Consult, Opt Out Cong Khan Diagnosis: heart failure Therapy Start Date: 07/2019 Contact in person or via telephone:telephone Mr. Cong Khan is a 66 y.o. (1955) male who was contacted in regard to specialty medication. Spoke with patient regarding Entresto. A review of the medication therapy was performed. The medication was refilled as scheduled, and all medication related questions and concerns were addressed. The specialty pharmacy staff will follow up with the patient 5-7 days prior to next refill. Is the patient willing to proceed with the Clinical Assessment? No Summary and Recommendations: Cong states he has had no side effects and is doing well on the medication. He states he spoke with Prisca last week who mentioned potentially increasing to the 97/103 mg tablets if all lab work and follow up looked good. I advised him we would watch for a new script for the dose change and reach backout to him if needed. He had no questions about the Entresto today. He confirms no changes to his other medications, allergies, and medical conditions. He is aware of the Specialty Pharmacy contact information should he need to contact us. Economic Assessment: Patient is agreeable to medication copay: Yes Copay Amount: $0 Day Supply: 180 Date Needed: 03/24 Therapy Assessment: Appropriate Therapy: Yes Current Medication Dosing/Route/Frequency: Entresto 49/51 mg tablets - Take 1 tablet by mouth twice a day Additional equipment/supplies required: no Care Plan Reviewed and Approved by Pharmacist : Yes Problem List: Patient Active Problem List Diagnosis Code ??? Acute systolic congestive heart failure I50.21 ??? Atrial fibrillation I48.91 ??? Hypertension I10 ??? 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 Stroke I63.9 ??? Valvular disease I38 ??? 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 Chronic cough R05 ??? Heartburn R12 ??? RUQ pain R10.11 ??? Fecal urgency R15.2 ??? Dysphagia R13.10 ??? History of hepatitis C Z86.19 Medications Reviewed: Yes Medications reconciled: No Allergies Reviewed:Yes Allergies reconciled: No Pharmacist follow-up needed: Yes - routine follow up Informed patient of specialty pharmacy services: Yes -Patient received welcome packet: Yes Date Received: 07/2019 Delivery Method: Mail ?? -Patient returned signed Rights & Responsibilities: Yes Date Received: 07/2019 Delivery Method: Mail -Patient is aware a licensed pharmacist is available 24 hours a day, 7 days a week to discuss medication-related questions or concerns: Yes -Patient verbalizes understanding of the common side effect profile of their medication. The patientis able to call 911 or seek urgent care if signs/symptoms of allergy or harmful adverse reactions occur: Yes Patient understands no changes to current drug regimen were made at the appointment and that the pharmacist is providing recommendations (summary located at top of note) for provider review and follow up. Shellie Walker RPH 03/17/21 4:17 PM documented in this encounter Plan of Treatment Upcoming Encounters Date Type Specialty Care Team Description 06/16/2022 Laboratory Appointment Lab 06/16/2022 Office Visit Cardiology Gianna Lorenzana PA [facility] Cardiology Dept [place], [place] [address] (Wo rk) Scheduled Procedures Name [...] and Facing Tad A, Understanding Action Plan [facility] Note: Formatting of this note might be d ifferent from the original. Maintain 100% adherence to Entresto twic e daily regimen documented as of this encounter Visit Diagnoses Not on filedocumented in this encounter Care Teams Buffing Wheel Operator Relationship Specialty Start Date End Date Pricila Geller APRN PCP - General Family Medicine 11/24/18 [address] [place] [address] documented as of this encounter
--- OUTSIDE RECORDS SUMMARY | 2022-05-20 07:37 | XMS_ITS | Encounter Summary ---
:1955 Author Organization [place] [address] Care Team Providers Name Role Phone Pricila Geller APRN Primary Care Provider Reason for Referral Diagnostic Test (Routine) - Closed Specialty Diagnoses / Procedures Referred By Contact Refer red To Contact Diagnoses Atrial fibrillation, unspecified type Chetan Hoff MD Procedures Ziopatch 48 Hrs-15 Days [facility] [place] [address] Referral ID Status Reason Start Date Expiration Date Visits V isits Requested Authorized [id number] Closed Specialty 03/25/2021 03/25/2022 1 1 Service Requested Reason for Visit Reason Comments Hospital Transfer Cerebrovascular Accident Auth/Cert Specialty Diagnoses / Procedures Referred By Contact Refer red To Contact Diagnoses Atrial fibrillation, unspecified type AMS (altered mental status) Referral ID Status Reason Start Date Expiration Date Visits Requ ested Visits Authorized [id number] 1 1 Encounter Details Date Type Department Care Team Description 03/24/2021 - Hospital Encounter Neuroscience Special Maikel Zheng MD [address] [place] [address] [place] [address] AMS (altered mental status) (Primary Dx) ; 03/25/2021 Care Unit Chanel Salgado MD [facility] [place] [address] Atrial fibrillation, unspecified type; [facility] Saul Huerta MD [facility] [place] [address] Altered mental status, unspecified alter ed mental [place] [address] Social History Tobacco Use Types Packs/Day Years [...] Sign Reading Time Taken Comments Blood Pressure 135/99 03/25/2021 4:00 PM EDT Pulse 83 03/25/2021 4:00 PM EDT Temperature 36.6 ??C (97.9 ??F) 03/25/2021 2:00 PM EDT Respiratory Rate 25 03/25/2021 4:00 PM EDT Oxygen Saturation 97% 03/25/2021 4:00 PM EDT Inhaled Oxygen Concentration - - Weight - - Height - - Body Mass Index - - documented in this encounter Discharge Summaries Saul Huerta MD - 03/25/2021 11:11 AM EDT Images from the original note were not included. Discharge Summary Patient Name: Cong Khan Patient Age: 66 y.o. 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 Discharge Diagnoses (Hospital Problems) and Secondary Diagnoses (Chronic Problems): Primary Diagnosis: Post Stroke Seizures Secondary Diagnosis: Active Hospital Problems Diagnosis ??? AMS (altered mental status) Resolved Hospital Problems No resolved problems to display. Active Non-Hospital Problems Diagnosis ??? Acute systolic congestive heart failure ??? Atrial fibrillation ??? Stroke ??? Valvular disease ??? Aneurysm of aortic arch ??? Chronic cough ??? Heartburn ??? RUQ pain ??? Fecal urgency ??? Dysphagia ??? History of hepatitis C ??? Hypertension ??? H/O mitral valve replacement with tissue graft ??? H/O aortic valve replacement with porcine valve Past Medical History: Diagnosis Date ??? Alcohol use disorder ??? Atrial fibrillation ??? CHF (congestive heart failure) ??? Hypertension ??? Mitral valve prolapse ??? Stroke History of Presentation: Cong Khan is a 66 y.o. male right-handed with pmhx of Hepatitis C (s/p treatment with Harvoni), mitral valve prolapse s/p mitral valve??repair x1 and??replacement x2, aortic valve replacement, HTN, CHF, A. 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 ?? History is taken from his partner, Hodan: ?? Yesterday morning he was feeling tired and did not feel like going to work. She then went to work and around 1300 he said he had a headache and drank coffee and the headache went away. He went about his day and did not take any tylenol/ibuprofen. He was watching [email or web address] last night and they had dinner & he took a nap in front of the TV. After waking up he finished his movie she had asked him to come to bed and she went upstairs but forgot she left the wood stove on. ?? When she went downstairs she noticed he was bare below the waist which was weird because they have aroommate and he does not do that. He stated he had an accident. She felt like he was maybe weak on the right side while walking up the stairs and holding on the railing and then went to bed. He immediately went to sleep which is weird because he did not brush his teeth or take his medications. In the middle of the night he had a bad cough and it seemed like he was coughing up liquid. They got up around 0600 and she found him difficult to wake up and giving one word answers. He had residual weakness/numbness of the left side of his body from the prior stroke. He has chronic weakness of the right legfrom vascular issues. Denies recent fevers, chills etc. Physical Exam at Admission GCS Scale Vitals: Temp: [37 ??C (98.6 ??F)] Heart Rate: [72-81] Resp: [14-20] BP: (102-109)/(69-77) SpO2: [93 %-98 %] Heart Rate from SpO2: [52 bpm-79 bpm] Gen: Patient of apparent stated age, well nourished, well developed, lethargic but at times laughinginappropriately Neck: Supple, no meningismus, no carotid bruit, no occipital tenderness CV: + S1, S2, RRR, no murmur Resp: CTA B/L Abd: +normoactive bowel sounds, soft, nontender, nondistended Ext: No edema. No bony deformity Neuro Exam: MS: AAOx4, clear language, no dysarthria, follows commands CN: PERRL, EOMI, visual thurman full Facial sensation intact, no facial asymmetry Hearing intact to finger rub Palate elevates symmetrically, tongue protrudes midline SCM and trap strength intact Motor: Normal bulk and tone. UE: 5/5 R, 4/5 L Arm abduction at shoulder 5/5 R, 4/5 L Elbow extension 5/5 R, 5/5 L Elbow flexion 5/5 R, 5/5 L Orchestra Teacher LE: 4/5 R, 4/5 L Hip flexion 5/5 R, 4/5 L Knee extension 5/5 R, 5/5 L Knee flexion 5/5 R, 5/5 L Foot dorsiflexion 5/5 R, 5/5 L Foot plantar flexion Sensation: Intact to light touch Toes - R mute, L down Coordination: Finger to nose intact, no dysmetria Heel-knight intact + tremor Gait: NT Hospital Course: Cong Khan was admitted to the neurology services for further evaluation. On arrival he was found to be encephalopathic in addition to prior deficits from right sided stroke.Initial concern for stroke however MRI without acute infarct. Considering significant improvement inencephalopathy without intervention an infectious or inflammatory condition is unlikely. 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 24EEG with independent bitemporal slowing R > L. No seizures were recorded on EEG. He was started on Keppra 500mg bid. Considering cardiac history and history of A fib it was possible that encephalopathy was secondary to hypoperfusion secondary to arrhythmia. Cardiology were curbsided and review telemetry and telemetry. [place] that the presentation was unlikely to be explained by cardiac event, however felt that it was reasonable to discharge patient on Ziopatch for further monitoring of PVCs as increased burden may require further evaluation. The patient was evaluated by Rehabilitation Services and deemed appropriate for discharge to home. Operations/Major Procedures: Nil. Consultations 1. PT/OT Diagnostic Tests & Neuroimaging: Date Study Results 03/24/21 ECG Sinus rhythm with sinus arrhythmia with frequent Premature ventricular complexes Left axis deviation Left bundle branch block Abnormal ECG When compared with ECG of 24-MAR-2021 11:19, Premature ventricular complexes are now Present MA interval has decreased 03/24/21 CXR No acute cardiopulmonary abnormality. Stable cardiomegaly. ?? 03/24/21 CT Head 1. No acute intracranial process. 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 2. 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 3. Otherwise unremarkable major arteries of the head and neck. 4. Mildly aneurysmal aortic arch. ?? 03/24/21 MRI BRAIN 1. No acute infarction, mass or mass effect. 2. Encephalomalacia within the superior right frontal lobe and posterior occipital lobe consistent with sequela of remote prior infarct. 3. Small foci of susceptibility related signal loss at the tirado matter white matter boundary within both cerebral hemispheres. Differential includes small microhemorrhages from chronic small vessel ischemic disease or possibly cerebral amyloid angiopathy. ?? 03/25/21 TTE 1. The left ventricular chamber size is normal. Basal septal hypertrophy is observed. There is no evidence of LVOT obstruction. The basal inferior, and basal inferoseptal wall segments are hypokinetic (score 2). There is normal global left ventricular systolic function. The quantitative left ventricular ejection fraction by biplane Walker's method is 52%. 2. The right ventricle is mildly dilated. There is mild right ventricular hypertrophy observed. Right ventricular global systolic function is normal. 3. The left atrium is severely dilated. The right atrium is moderately dilated. 4. A porcine bio-prosthetic aortic valve is present. The peak instantaneous trans-valvular gradient across the aortic valve is 44 mmHg. Obtained from the right sternal border with the non-imaging CW probe. The mean trans-valvular gradient across the aortic valve is 22 mmHg. DOI 0.25. Mild (1+/4+) aortic valve prosthesis regurgitation is present. 5. A bio-prosthetic mitral valve is present. The bio-prosthetic mitral valve appears to be functioning normally. The mean gradient across the mitral valve is 6 mmHg. at 60 BPM. There is a trace amount of mitral prosthesis regurgitation. 6. There is mild dilatation of the aortic root (3.9 cm). There is moderate dilatation of the ascending aorta (4.5 cm). 7. The estimated pulmonary artery systolic pressure is 27 mmHg. 8. See remainder of report for additional findings. ?? 03/24/21 - 03/25/21 EEG Final Read pending Labs: Last 3 wbc, hgb, hct plt Recent Labs 03/25/21 0111 03/24/21 1111 01/09/21 1314 WBC 5.8 4.3 4.3 HGB 15.2 13.3* 13.9 HCT 44.8 40.0* 42.3 PLATELET 210 184 165 Last 3 Lytes Recent Labs 03/25/21 0111 03/24/21 1111 01/09/21 1314 NA 139 135 139 K 4.2 4.0 4.2 CL 104 101 104 CO2 19* 22 26 BUN 33* 31* 33* CREATININE 1.57* 1.81* 1.57* Last 3 TFT Recent Labs 03/24/21 1111 01/09/21 1314 TSH 0.98 1.75 Last 3 HgbA1C Recent Labs 03/25/21 0111 HA1C 5.2 Pending Studies and Lab Data: Nil Vital Signs at Discharge: BP: (!) 135/99, Heart Rate: 83, Temp: 36.6 ??C (97.9 ??F), Resp: 25, Functional and Cognitive Status: Stable Physical Exam at Discharge: Gen: Patient of apparent stated age, well nourished, well developed,??lethargic but at times laughing inappropriately?? Neck: Supple, no meningismus, no carotid bruit, no occipital tenderness CV: + S1, S2, RRR, no murmur Resp: CTA B/L Abd: +normoactive bowel sounds, soft, nontender, nondistended Ext: No edema. No bony deformity Neuro Exam: MS: AAOx4, clear language, no dysarthria, follows commands and crosses midline, spels TABLE forward and back, able to subtract from 30 in 3s, makes 1 subtraction of 7 from 100, delayed recall 3/3 CN: ?PERRL, EOMI, visual thurman full ?Facial sensation intact, no facial asymmetry ?Hearing intact to finger rub ?Palate elevates symmetrically, tongue protrudes midline ?SCM and trap strength intact Motor: ??Normal bulk and tone. ?UE: ?5/5 R, 4/5 L ?Arm abduction at shoulder ?5/5 R, 4/5 L ?Elbow extension ?5/5 R, 5/5 L ?Elbow flexion ?5/5 R, 5/5 L ?Orchestra Teacher ?LE: ?4/5 R,??4/5 L ?Hip flexion ?5/5 R, 4/5 L ?Knee extension ?5/5 R, 5/5 L ?Knee flexion ?5/5 R, 5/5 L ?Foot dorsiflexion ?5/5 R, 5/5 L ?Foot plantar flexion Sensation: Intact to light touch ?Toes - R mute, L down? Coordination: ?Finger to nose intact, no dysmetria ?Heel-knight intact Gait:??Stable gait Discharge to: Home Updated Allergies/ADRs: No Known Allergies Immunizations Given this Hospitalization: Immunization History Administered Date(s) Administered ??? Influenza Vaccine PF, Quadrivalent 09/07/2017 Discharge Medications: Your Medications New Medications Dose Details levETIRAcetam 500 mg Tab Commonly known as: Keppra Take 1 tablet by mouth 2 times daily. 500 mg Quantity: 60 tablet Refills: 12 Continued medications, unchanged Dose Details apixaban 2.5 mg Tab Commonly known as: Eliquis Take 1 tablet by mouth 2 times daily. 2.5 mg Quantity: 180 tablet Refills: 3 aspirin 81 mg Chew Take 81 mg by mouth daily. 81 mg Quantity: 30 tablet Refills: 3 b complex vitamins Cap Take 1 capsule by mouth daily. 1 capsule Refills: 0 D3-2000 50 mcg (2,000 unit) Cap Take by mouth. Generic drug: cholecalciferol (Vitamin D3) Refills: 0 esomeprazole 20 mg Cpdr Commonly known as: NexIUM Take 1 capsule by mouth 2 times daily. 20 mg Quantity: 180 capsule Refills: 3 finasteride 5 mg Tab Commonly known as: Proscar 5 mg daily. 5 mg Refills: 11 fish oil-omega-3 fatty acids 1,000 mg Cap Take 1,200 mg by mouth 2 times daily. 1,200 mg Refills: 0 folic acid 1 mg Tab Commonly known as: Folvite Take 1 mg by mouth daily. 1 mg Refills: 0 * metoprolol succinate XL 100 mg Tablet sr Commonly known as: Toprol-XL Take 1 tablet by mouth 2 times daily. Take extra 50 mg tab in am for total 150 mg in am & 100 mgin pm. 100 mg Quantity: 180 tablet Refills: 3 * metoprolol succinate XL 50 mg Tablet sr Commonly known as: Toprol-XL Take 1 tablet by mouth daily. Take with 100 mg tab in in am for total of 150 mg in am. 50 mg Quantity: 90 tablet Refills: 3 NETTLE LEAF ORAL Take by mouth. Refills: 0 sacubitriL-valsartan 97-103 mg Tab tablet Commonly known as: Entresto Take 1 tablet by mouth 2 times daily. 1 tablet Quantity: 60 tablet Refills: 3 tamsulosin 0.4 mg Cap Commonly known as: Flomax 0.4 mg daily. 0.4 mg Refills: 11 torsemide 10 mg Tab Commonly known as: Demadex Take 1 tablet by mouth daily. 10 mg Quantity: 90 tablet Refills: 3 * This list has 2 medication(s) that are the same as other medications prescribed for you. Read thedirections carefully, and ask your doctor or other care provider to review them with you. Smoking Status at Discharge: N/a Instructions Given to Patient at Discharge: Patient Instructions You were admitted to the neurology service at [facility]. Your diagnosis: post stroke seizures New Medications: Keppra 500mg bid Stop these medications: N/a Change these medications: n/a Patient Instructions: ??? Discharge with Ziopatch to monitor heart rhythym over 14 days ??? Call your doctor or seek medical attention if you have ??? weakness or numbness in your face or one of your limbs or difficulty speaking ??? loss of vision ??? seizures or loss of consciousness ??? Diet: we recommend a heart healthy diet: low fat, low cholesterol, low concentrated sweets. ??? Activity Restrictions: ??? [X] Seizures: Persons who have a seizure disorder are at increased risk of severe injuries, including falls, head trauma, ravi, and other injuries, even while on seizure medications. There is alsoan increased risk of sudden . To minimize your risk, we recommend that you do not swim or bath unsupervised. Avoid hazardous activities such as using ladders or working at heights, horseback riding, mountain climbing, and working or playing near open fires.. Avoid using heavy machinery, such as chainsaws. ??? [X] Anticoagulation: You are on a blood-thinning medication, coumadin (warfarin) that puts you at a higher risk of bleeding should you fall or hit your head. Because you are on a blood-thinning medication, you should avoid any activities that put you at risk to fall or hit your head. Please contact your doctor if you have a severe fall, significant bleeding, or if you have a severe headache that is not normal for you. Please call your doctor if you have black tarry stools or blood in your urine. ??? Driving Restrictions: According to [place] driving laws, after you have experienced an episode of loss of consciousness due to a seizure you cannot drive for a minimum of 1 year or until cleared by yourphysician. We strongly recommend that you avoid driving cars, recreational vehicles or heavy machinery and seek alternate transportation. [Statute: [place] SAF-C 205.08] For more information, please visit [email or web address] ??? Home oxygen therapy: none needed ??? Anticoagulation Follow-up and Instructions: none FOLLOWUP APPOINTMENT: You will have an outpatient followup appointment in the neurology clinic at [facility]. If not already listed in this document, we will contact you to schedule this appointment. -- If 1 week passes by after you are discharged and you still do not have an appointment, please call [phone]. Future Appointments and Orders Future Appointments and Orders Future Appointments Provider Department Dept Phone 03/27/2021 1:[address] Cardiology at [facility] Arrive at: Home [phone] Please do not come in for this visit. Your provider will call you at the number you provided. 04/01/2021 8:00 AM Zach Darby MD Pulmonology at [facility] Arrive at: Business Intelligence Analyst Area 5C [phone] 09/30/2021 10:00 AM MOTILITY [facility] 1 Gastroenterology at [facility] Arrive at: Business Intelligence Analyst Area 4T [phone] Future Orders Complete By Expires Ziopatch 48 Hrs-15 Days [[id number] CPT(R)] 03/25/2021 09/25/2021 Process Instructions: Scheduling Instructions: Questions: Where will study be performed?: [facility] Does the patient have a pacemaker? If yes provide HI/LO settings: Apply for 7 or 14 days?: 14 General Instructions None Future Appointments and Orders Future Appointments and Orders Future Appointments Provider Department Dept Phone 03/27/2021 1:[address] Cardiology at [facility] Arrive at: Home [phone] Please do not come in for this visit. Your provider will call you at the number you provided. 04/01/2021 8:00 AM Zach Dar[place] MD Pulmonology at [facility] Arrive at: Business Intelligence Analyst Area 5C [phone] 09/30/2021 10:00 AM MOT[facility] 1 Gastroenterology at [facility] Arrive at: Business Intelligence Analyst Area 4T [phone] Future Orders Complete By Expires Ziopatch 48 Hrs-15 Days [[id number] CPT(R)] 03/25/2021 09/25/2021 Process Instructions: Scheduling Instructions: Comments: Questions: Where will study be performed?: [facility] Does the patient have a pacemaker? 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 MACHINE OPERATOR [facility] Card CHANDAN FRANCO 03/27/2021 1:[address] [facility] CARD 4A [facility] 04/01/2021 8:00 AM Zach Darby MD [facility] PULM [facility] 09/30/2021 10:00 AM MOTILITY LAB 1 [facility] GAS 4T [facility] Primary Care Provider: JOELLE [address] / [place] [id number] Discharge References/Attachments None documented in this encounter Discharge Instructions Discharge InstructionsChetan Hoff MD - 03/25/2021 4:55 PM EDT Patient InstructionsChetan Hoff MD - 03/25/2021 1:01 PM EDT You were admitted to the neurology service at [facility]. Your diagnosis: post stroke seizures New Medications: Keppra 500mg bid Stop these medications: N/a Change these medications: n/a Patient Instructions: ??? Discharge with Ziopatch to monitor heart rhythym over 14 days ??? Call your doctor or seek medical attention if you have ??? weakness or numbness in your face or one of your limbs or difficulty speaking ??? loss of vision ??? seizures or loss of consciousness ??? Diet: we recommend a heart healthy diet: low fat, low cholesterol, low concentrated sweets. ??? Activity Restrictions: ??? [X] Seizures: Persons who have a seizure disorder are at increased risk of severe injuries, including falls, head trauma, ravi, and other injuries, even while on seizure medications. There is alsoan increased risk of sudden . To minimize your risk, we recommend that you do not swim or bath unsupervised. Avoid hazardous activities such as using ladders or working at heights, horseback riding, mountain climbing, and working or playing near open fires.. Avoid using heavy machinery, such as chainsaws. ??? [X] Anticoagulation: You are on a blood-thinning medication, coumadin (warfarin) that puts you at a higher risk of bleeding should you fall or hit your head. Because you are on a blood-thinning medication, you should avoid any activities that put you at risk to fall or hit your head. Please contact your doctor if you have a severe fall, significant bleeding, or if you have a severe headache that is not normal for you. Please call your doctor if you have black tarry stools or blood in your urine. ??? Driving Restrictions: According to [place] driving laws, after you have experienced an episode of loss of consciousness due to a seizure you cannot drive for a minimum of 1 year or until cleared by yourphysician. We strongly recommend that you avoid driving cars, recreational vehicles or heavy machinery and seek alternate transportation. [Statute[place] SAF-C 205.08] For more information, please visit [email or web address] ??? Home oxygen therapy: none needed ??? Anticoagulation Follow-up and Instructions: none FOLLOWUP APPOINTMENT: You will have an outpatient followup appointment in the neurology clinic at [facility]. If not already listed in this document, we will contact you to schedule this appointment. -- If 1 week passes by after you are discharged and you still do not have an appointment, please call [phone]. Future Appointments and Orders Future Appointments and Orders Future Appointments Provider Department Dept Phone 03/27/2021 1:[address] Cardiology at [facility] Arrive at: Home [phone] Please do not come in for this visit. Your provider will call you at the number you provided. 04/01/2021 8:00 AM Zach [place] MD Pulmonology at [facility] Arrive at: Business Intelligence Analyst Area 5C [phone] 09/30/2021 10:00 AM MOTILITY LAB 1 Gastroenterology at [facility] Arrive at: Business Intelligence Analyst Area 4T [phone] Future Orders Complete By Expires Ziopatch 48 Hrs-15 Days [[id number] CPT(R)] 03/25/2021 09/25/2021 Process Instructions: Scheduling Instructions: Questions: Where will study be performed?: [facility] Does the patient have a pacemaker? If yes provide HI/LO settings: Apply for 7 or 14 days?: 14 documented in this encounter Medications at Time of Discharge [...] cerebral artery documented as of this encounter Progress Notes Tamiko Murguia RN - 03/25/2021 6:18 PM EDT Cong Khan discharged to Home by private car with Spouse. All belongings sent with patient. IVAremoved, incision, skin free from pressure ulcers. Discharge instructions, medications, and follow-up appointments reviewed, education provided, all questions answered. Patient instructed to call with c oncerns. Bobbi Nance RN - 03/25/2021 11:56 AM EDT Office of Care Management Initial Assessment Bobbi Nance RN discussed discharge plan with Care Team and patient. Cong Khan is medically ready for discharge Pt inquired about cardiology F/U, notified Team. Will Transport to home by car w/significant other Lachelle No home services needed at this time. Prescription fern picker reviewed w/Patient and they will fern picker medications at [facility], 3rd level An Important Message From Medicare about Your Rights letter reviewed with pt upon admission 03/24/21 Eric James SLP - 03/25/2021 11:29 AM EDT Speech Language Pathology Contact Note Order received. Per RN, Pt has demonstrated no s/s of dysphagia and is being discharged today. MD contacted and stated consult is no longer warranted. Eric James MS, CCC-BALANCING MACHINE SET UP WORKER Pager: [phone] Speech-Language Pathology Inpatient Rehabilitation Department Priti Wiseman OT - 03/25/2021 10:40 AM EDT Occupational Therapy Evaluation Patient Profile: Cong Khan is a 66 y.o. male admitted on 03/24/2021 with pmhx of??Hepatitis C (s/p treatment with Harvoni), mitral valve prolapse s/p mitral valve??repair x1 and??replacement x2, aortic valve replacement, HTN, CHF, A. 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 MRI; no acute infarct, encephalomalacia of superior right frontal lobe and occipital lobe. Work up ongoing- ? seizures vs arrythmia causing hypoperfusion with prolonged recovery. Active Non-Hospital Problems Diagnosis ??? Acute systolic congestive heart failure ??? Atrial fibrillation ??? Stroke ??? Valvular disease ??? Aneurysm of aortic arch ??? Chronic cough ??? Heartburn ??? RUQ pain ??? Fecal urgency ??? Dysphagia ??? History of hepatitis C ??? Hypertension ??? H/O mitral valve replacement with tissue graft ??? H/O aortic valve replacement with porcine valve Social History: Home set-up: Lives with his girlfriend in a 2 story home. Bedroom is up a flight of stairs with a railing and One [place] home, with railing. Bathroom Set-up: step in shower with a seat Baseline Mobility: Pt intermittently uses a cane but mostly walks without a device. 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 Equipment at home: cane and shower seat Fall history: Remote falls years ago related to ZAKI-per pt.. Precautions/Special Considerations: EEG, fall risk, reading glasses, hearing aides, R ZAKI, PIV.. Activity Orders: up with assist Subjective: I am becoming more aware of the last few days. Objective: Seen today for OT evaluation. Vital Signs: o HR: 80-120 bpm o SpO2: 99 on RA Pain: LBP (baseline) Skin: Still on VEEG monitoring Cognitive Status/Behavior: o Behavior / Mood: alert and cooperative o Alert and oriented to: person, place, time and situation o Follows commands: 1 step, 2 step and requires repetition at times 2' Hard of hearing o Attention: WFL o Safety awareness: WFL Vision & Perception: o WNL/WFL o corrective lenses multimedia services manager Communication/Hearing: o Hearing WFL bilaterally o Speech intact Musculoskeletal: o Hand dominance: right o ROM: R UE limited to 90' from prior injury, otherwise B UEs WFL. o Strength: B UEs moving anti-gravity, does have slightly decreased strength on L side 2' prior stroke. L shoulder 3/5 and biceps 4/5. o Sensation: numbness in R thigh from previous hip surgery in past. o Coordination: intact Activities of Daily Living: o Self-feeding: Capable of feeding self independently. o Grooming: Completed with MULT[employer]IA PRODUCER earlier, would need close supervision to CG A 2' VEEG monitoring. o Dressing: - Pt reports trouble donning socks at times, has tried sock aide in past. States he can do it in certain positions/seating at home. Has that can help if he can't do it. - Pt needing help with gown mgmt 2' lines, but anticipate would be independent otherwise. - Discussed donning shirts seated vs. Standing as noted to have decreased balance with standing witheyes closed with PT. o Bathing: - Discussed shower set up and has seat, and can sit for bathing. can be present in home during task. Discussed sitting definitely when he shampoos hair and closes eyes, as noted to have decreased balance in stance with eyes closed. - Simulated could wash up supervised seated after setup. Had washed with MULTIMEDIA PRODUCER earlier. o Toileting: o Discussed safety with toileting at night. Uses urinal at night, but does have night lights. o Pt close supervision/CG A with mobility in room. dicussed no driving until cleared by MD. If seizures, then will not be able to drive 3 months. Functional Mobility: o Supine <> Sit: NA up chair o Sit <> Stand: Supervised o Ambulation: supevised to CG A, and assistance for lines in room. Balance: o Sitting Static: good o Sitting Dynamic: good o Standing Static: fair (+) o Standing Dynamic / Gait: fair (+) Education: Patient has been educated on Role of occupational therapy and rehabilitation, Transfers, ADL's, Positioning, Safety, Functional Mobility, Activity pacing/Energy conservation, Balance, DME Recommendations, and Discharge planning. Patient verbalized understanding. Patient status, treatment, and activity/mobility recommendations discussed with nursing. Assessment: Pt has been seen for occupational therapy evaluation. Cong Khan presents with the following performance skill deficits and client factors: pain (chronic back pain), decreased flexibility/ROM (R shoulder and hip-baseline), decreased standing balance and impaired hearing (uses aides). These performance deficits have led to activity limitations and participation restrictions in the following areasof occupation: home management, work, leisure, driving and community mobility. However, despite the deficits listed above pt demonstrates the ability to complete basic self-care and functional mobilitytasks with supervision to contact guard assistance, seated/standing after set-up. Pt oriented x3, and becoming more aware of his situation (delayed relay of last couple of days). Pt following commands,and carrying out phone conversations, and setting up appointments on his own. Pt slightly delayed with responds, but feel related to hearing. states he appears back to himself. available to help at home. Anticipate that pt will return home with assistance once medically ready. Do not anticipate further OT needs while hospitalized. Equipment needs at discharge: has shower seat. Anticipated Discharge Disposition (OT): home with assist Activity Recommendations: ?? Promote normalcy by encouraging participation in common daily tasks & leisure activities by providing set up assist ?? Provide calming music, favorite TV programs, magazines or newspapers ?? Bathroom for toileting needs vs. Using urinal & bed salazar ?? Utilize upright chair position using bed features or transfer to recliner chair as appropriate, and walk with supervision to CG A. OT: Therapy Frequency (OT): evaluation only Total Minutes, Occupational Therapy: 25(evaluation (10:40-11:05)) 2017 OT Evaluation Code Rationale: Diagnosis & Pertinent Co-Morbidities affecting Plan of Care: see PMHx Occupational Profile & Client History: Brief Expanded Extensive x Assessment of Occupational Performance: 1-3 performance deficits 3-5 performance deficits x 5 + performance deficits Clinical Decision Making: Low Moderate High x Clinical decision making of low complexity using standardized patient assessment instrument and measurable assessment of functional outcome. Priti Wiseman, OTR Pager [phone] Occupational Therapy Rehabilitation Department Cassandra Mishra MSW - 03/25/2021 10:14 AM EDT Social Work Progress Note BIOLOGY TUTOR completed chart review. Patient has an AD from 2017 appointing Amy Blackburn. Team reports patient has supportive life partner named Hodan and asked to verify if reflects his current wishes orif he has an updated one. If not, team can assess for capacity to complete one. BIOLOGY TUTOR briefly met with patient and life partner Hodan at bedside. BIOLOGY TUTOR asked if patient had an update AD to provide. Patient reports he had one in 2017 when he had his stroke, but believes there is a more current one. Hodan reports he updated it in 2019 and able to provide a copy to this copywriter. Patient would like it scanned into his chart. Per AD, patient has appointed his life partner Hodan as primary DPOAHC and his daughter Anne onofre. A copy will be scanned into patient's chart. BIOLOGY TUTOR updated team and RNCM. BIOLOGY TUTOR is available as needed or requested. LISS Porter [facility] Loom Changer Phone: [phone] Pager: [phone] Dania Bales, PT - 03/25/2021 10:11 AM EDT Physical Therapy Evaluation Patient profile: Cong Khan is a 66 y.o. R handed male admitted on 03/24/[address] Saul Huerta MD for AMS. CT and MRI showing an old R frontal and R occipital infarct from previous CVA in 2017. Currently on EEG and TTE pending. PT, OT and BALANCING MACHINE SET UP WORKER consulted. Pt started feeling general Malaise on 03/23/21. Girlfriend states he was difficult to wake up and pt was confused on 03/24/21. Patient with the following active problems: Past Medical History: Diagnosis Date ??? Alcohol use disorder ??? Atrial fibrillation ??? CHF (congestive heart failure) ??? Hypertension ??? Mitral valve prolapse ??? Stroke Past Surgical History: Procedure Laterality Date ??? AORTIC VALVE REPLACEMENT ??? GASTRIC FUNDOPLICATION ??? MITRAL VALVE REPLACEMENT x2 ??? TOTAL HIP ARTHROPLASTY ??? TRICUSPID VALVULOPLASTY ??? XR JOINT ASPIRATION - LARGE JOINT RIGHT Right 06/19/2019 XR Fluoro Guided Joint Aspiration Large Right 06/19/2019 Latonia Caraballo, COLLECTIONS ASSOCIATE [facility] RAD XRAY Active Non-Hospital Problems Diagnosis ??? Acute systolic congestive heart failure ??? Atrial fibrillation ??? Stroke ??? Valvular disease ??? Aneurysm of aortic arch ??? Chronic cough ??? Heartburn ??? RUQ pain ??? Fecal urgency ??? Dysphagia ??? History of hepatitis C ??? Hypertension ??? H/O mitral valve replacement with tissue graft ??? H/O aortic valve replacement with porcine valve Social History: Home set-up: Lives with his girlfriend in a 2 story home. Bedroom is up a flight of stairs with a railing and [address] home, with railing. Bathroom Set-up: step in shower with a seat Baseline Mobility: Pt intermittently uses a cane but mostly walks without a device. 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 Equipment at home: cane and shower seat Fall history: Remote falls years ago related to ZAKI-per pt.. Precautions/Special Considerations: EEG, fall risk, reading glasses, hearing aides, R ZAKI, PIV.. Activity Orders: up with assist Mobility and Positioning Recommendations: ?? Pt. to utilize no device and close supervision to cga for ambulation and transfers with nursing. Can use a FWW if balance decreases at times. ?? Please encourage up to chair for meal times as able. ?? Pt encouraged to ambulate frequently with staff, getting into the bathroom for toileting and walking out in the arnold >/= 3 times daily as able. Subjective: ???I think I am feeling fine today.?? Girlfriend thinks pt is functioning close to baseline. Objective: Pt seen for evaluation today. Pain: Chronic R LBP varies throughout the day, 0-8/10. Vital Signs: At Rest With Activity SpO2 (RA) 99% 100% BP (MAP) sitting 139/91 mmHg pre gait 156/111 mmHg after gait HR 80s bpm Up to 120 bpm with gait Mental Status: alert, oriented to person, place, and time Vision: progressive glasses Skin: Hemosiderin staining BLEs, below knees with varicosities. R hip scars. Musculoskeletal: ROM: R shoulder chronic flex and abd to 90. Rest of RUE and LUE AROM wfls. BLE AROM wfls for gait and transfers. Strength: Prior deficits L side of body, mostly resolved but decreased speed of function and mild weakness, LUE (biceps 4/5, L minnie at least 3/5). B ankle DF 5/5 and B knee ext 5/5. B hip flex at least 3/5. Posture: R LE reported to be shorter, per pt but he does not like to wear a lift. Sensation: Chronic numbness R thigh s/p R ZAKI complications. Bed Mobility: Supine to Sit: Mod independ per pt and nurse Sit to Supine: Same Transfers: Sit to Stand: cga to supervision, slow to rise Stand to Sit: supervision Gait: Distance: ~180' Device used: none Level of assist: Close supervision to cga Gait mechanics: R trendelenburg gait Stairs: NE- HTN and Afib Balance: Sitting Static: good Sitting Dynamic: good Standing Static: fair to fair+ Standing Dynamic / Gait: Fair to fair+ Negative Rhomberg EO, but increased trunk sway with EC and needed to open eyes at ~ 6 seconds. Exercises: pt shown standing ex, if girlfriend stands next to him and he has hands lightly over a table or counter---> work on closing eyes with normal GUSTAVO, then try narrowing GUSTAVO, closing eyes as able and chair behind with him with girlfriend assisting as needed. Pt Education: patient has been educated on Transfers, Safety , Precautions/protocol, Gait , Role of therapy, Balance and Discharge planning and verbalizes understanding. Patient status, treatment, and mobility recommendations discussed with nursing. Asked nursing if he received cardiac meds, and he had. Pt left sitting with seat alarm attached and GF present throughoutthe PT session. Assessment: Cong Khan was seen today for physical therapy evaluation. Pt seen by PT given the following: stiff and grossly weak from 2 days of not moving much with underlying neuromuscular and musculoskeletal deficits; chronic medical issues; decreased balance; Afib with HR into 120s on level ground and elevated BP prevented trial on the stairs; mild GARCIA; altered skin integrity; ROM decreased; Sensory deficits; and resultant gait, transfer and endurance impairments. Despite this, pt was more steady on his feet the more he moved and walk. Pt with chronic movement deficits given above, including a trendelenburg gait. Feel pt will be able to perform stairs without issue once BP has stabilized. GF states his BP normally runs low. Discussed pt using hiking sticks on uneven ground. Pt is visuallydependent on balance and they were educated in having night lights, wearing sunglasses or using AD when on uneven ground. They understood. W/u is still ongoing but expect dc to home without limitations. GF did ask about balance exercises and she was shown a few to do with pt.. He could participate in a balance program as an outpt, if he was agreeable. The pt would benefit from skilled therapy services while in the hospital to maximize functional abilities. Discharge Recommendations: Based on the current findings, Anticipated Discharge Disposition (PT): home with assist(as needed) when medically ready for hospital discharge. Consult Recommendations: No other consults recommended at this time. Equipment needs: No equipment necessary Goals: To be achieved by 03/26/21: 1. Pt. to demonstrate knowledge of safety limitations and precautions and will appropriately requestassistance for functional activities and to mobilize. 2. Pt. to demonstrate understanding of appropriate balance exercises. 3. Pt. to perform sit<>stand transfers with modified independence using no assistive device. 4. Pt. to ambulate >200 feet with modified independence using a no assistive device and vs LRAD and VSS 5. Pt. to ambulate up/down 13 step/stairs using one rail with supervision with VSS. 6. Family or caregiver to demonstrate understanding of therapeutic interventions to support the careof the patient. Plan: Therapy Frequency (PT): 1-2 more times for therapy including balance training, gait training, patient/family education, stair training, strengthening and transfer training. Patient/family understand and agree with plan as stated above. 2017 PT Evaluation Code Rationale: ?? Diagnosis & Pertinent Co-Morbidities, personal factors, and present illness affecting Plan ofCare: (see above); Additional personal factors or co- morbidities that impact plan: ?? Total # of Factors: 0 1-2 3+ x ?? Examination of body system impairments, functional limitations and behaviors, and/or participation restrictions. Addressing 1-2 elements Addressing 3 + elements Addressing 4 + elements x ?? Clinical presentation: See assessment above. Stable/Uncomplicated Evolving/Fluctuating Symptoms Unstable/Unpredictable ?? Clinical decision making of moderate complexity based on pt's functional performance as outlined in this evaluation. Time IN / OUT: 2680-3776 Total Minutes, Physical Therapy: 45(mod EV) DANIA BALES PT Pager: [phone] Physical Therapy Inpatient Rehabilitation Department Saul Gautam MD - 03/25/2021 7:10 AM EDT Neurology Daily Progress Note - 03/25/2021 Patient Name: Cong Khan Admit Date: 03/24/2021 Attending: Saul Huerta MD ID: Cong Khan is a 66 y.o. male right-handed with pmhx of Hepatitis C (s/p treatment with Harvoni), mitral valve prolapse s/p mitral valve??repair x1 and??replacement x2, aortic valve replacement, HTN, CHF, A. 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 Interval Hx / Subjective: - Admitted to General Neurology - cvEEG; pending final read - Mild back pain overnight - MRI; no acute infarct, encephalomalacia of superior right frontal lobe and occipital lobe - Improved overnight - NAEO, VSS Medications: Current Facility-Administered Medications Medication Dose Route Frequency Provider Last Rate Last Admin ??? levETIRAcetam (Keppra) tablet 500 mg 500 mg Oral BID Chetan Hoff MD ??? aspirin chewable tablet 81 mg 81 mg Oral Daily Taryn Niño COLLECTIONS ASSOCIATE 81 mg at 03/25/21 0852 ??? pantoprazole EC (Protonix) tablet 20 mg 20 mg Oral BID Taryn Niño COLLECTIONS ASSOCIATE 20 mg at 03/25/21 0853 ??? finasteride (Proscar) tablet 5 mg 5 mg Oral Daily Taryn Niño COLLECTIONS ASSOCIATE 5 mg at 03/25/21 0857 ??? folic acid (Folvite) tablet 1,000 mcg 1 mg Oral Daily Taryn Niño COLLECTIONS ASSOCIATE 1,000 mcg at 03/25/21 0852 ??? metoprolol succinate XL (Toprol-XL) tablet 150 mg 150 mg Oral Daily after breakfast Taryn Niño COLLECTIONS ASSOCIATE 150 mg at 03/25/21 0853 And ??? metoprolol succinate XL (Toprol-XL) tablet 100 mg 100 mg Oral Nightly Taryn Niño COLLECTIONS ASSOCIATE 100 mg at 03/24/212035 ??? sacubitriL-valsartan (Entresto) 97-103 mg per tablet 1 tablet 1 tablet Oral BID Ailyn Niño COLLECTIONS ASSOCIATE 1 tablet at 03/25/21 0853 ??? tamsulosin (Flomax) capsule 0.4 mg 0.4 mg Oral Daily Taryn Niño COLLECTIONS ASSOCIATE 0.4 mg at 852 ??? torsemide (Demadex) tablet 10 mg 10 mg Oral Daily Huerfano, Taryn C, COLLECTIONS ASSOCIATE 10 mg at 03/25/21 0853 ??? sodium chloride 0.9 % (flush) flush 5 mL 5 mL Intravenous BID Huerfano, Taryn C, COLLECTIONS ASSOCIATE 5 mL at 03/25/21 0857 ??? sodium chloride 0.9 % (flush) flush 5-20 mL 5-20 mL Intravenous Q1 Min PRN Huerfano, Taryn C, COLLECTIONS ASSOCIATE ??? lidocaine (Xylocaine) 1% (10 mg/mL) injection 3 mg 0.3 mL Subcutaneous Once PRN Renay, Ailyn, COLLECTIONS ASSOCIATE ??? senna-docusate (Pericolace) 8.6-50 mg per tablet 2 tablet 2 tablet Oral BID Renay, Taryn C, COLLECTIONS ASSOCIATE 2 tablet at 03/25/21 0854 ??? polyethylene glycoL (Miralax) packet 17 g 17 g Oral Daily Huerfano, Taryn Mendoza, COLLECTIONS ASSOCIATE ??? magnesium hydroxide (Milk of Magnesia) (240 mg/mL) oral liquid 10 mL 10 mL Oral Nightly PRN Renay, Taryn C, COLLECTIONS ASSOCIATE ??? bisacodyL (Dulcolax) suppository 10 mg 10 mg Rectal Daily PRN Huerfano, Taryn C, COLLECTIONS ASSOCIATE ??? labetaloL (Normodyne) (5 mg/mL) injection solution 10-20 mg 10-20 mg Intravenous Q15 Min PRN Huerfano, Taryn Mendoza, COLLECTIONS ASSOCIATE ??? acetaminophen (Tylenol) tablet 975 mg 975 mg Oral Q6H PRN RenayMary BethTaryn C, COLLECTIONS ASSOCIATE 975 mg at 03/24/21 2150 Or ??? acetaminophen (Tylenol) (32.02 mg/mL) oral liquid 975 mg 975 mg Per G Tube Q6H PRN Huerfano, Taryn C, COLLECTIONS ASSOCIATE Or ??? acetaminophen (Tylenol) suppository 975 mg 975 mg Rectal Q6H PRN Huerfano, Taryn C, COLLECTIONS ASSOCIATE Physical Exam: Vitals: Last value Range last 24 hrs Temperature Temp: 37 ??C (98.6 ??F) Temp: [36.6 ??C (97.9 ??F)-37.5 ??C (99.5 ??F)] Heart Rate Heart Rate: 81 Heart Rate: [76-116] Blood Pressure BP: (!) 141/120 BP: (93-166)/(61-120) Respiratory Rate Resp: 21 Resp: [14-31] SpO2 SpO2: 98 % SpO2: [92 %-98 %] I/O: 03/24 0701 - 03/25 0700 In: 850 [P.O.:850] Out: 1350 [Urine:1350] Gen: Patient of apparent stated age, well nourished, well developed, lethargic but at times laughinginappropriately Neck: Supple, no meningismus, no carotid bruit, no occipital tenderness CV: + S1, S2, RRR, no murmur Resp: CTA B/L Abd: +normoactive bowel sounds, soft, nontender, nondistended Ext: No edema. No bony deformity Neuro Exam: MS: AAOx4, clear language, no dysarthria, follows commands and crosses midline, spels TABLE forward and back, able to subtract from 30 in 3s, makes 1 subtraction of 7 from 100, delayed recall 3/3 CN: PERRL, EOMI, visual thurman full Facial sensation intact, no facial asymmetry Hearing intact to finger rub Palate elevates symmetrically, tongue protrudes midline SCM and trap strength intact Motor: Normal bulk and tone. UE: 5/5 R, 4/5 L Arm abduction at shoulder 5/5 R, 4/5 L Elbow extension 5/5 R, 5/5 L Elbow flexion 5/5 R, 5/5 L Orchestra Teacher LE: 4/5 R, 4/5 L Hip flexion 5/5 R, 4/5 L Knee extension 5/5 R, 5/5 L Knee flexion 5/5 R, 5/5 L Foot dorsiflexion 5/5 R, 5/5 L Foot plantar flexion Sensation: Intact to light touch Toes - R mute, L down Coordination: Finger to nose intact, no dysmetria Heel-knight intact Gait: Stable gait Labs: Last 3 wbc, hgb, hct plt Recent Labs 03/25/21 0111 03/24/21 1111 01/09/21 1314 WBC 5.8 4.3 4.3 HGB 15.2 13.3* 13.9 HCT 44.8 40.0* 42.3 PLATELET 210 184 165 Last 3 Lytes Recent Labs 03/25/21 0111 03/24/21 1111 01/09/21 1314 NA 139 135 139 K 4.2 4.0 4.2 CL 104 101 104 CO2 19* 22 26 BUN 33* 31* 33* CREATININE 1.57* 1.81* 1.57* Last 3 LFTs Recent Labs 03/25/21 0111 03/24/21 1111 01/09/21 1314 AST 17 13 14 ALT 12 8 7 ALKPHOS 43 38* 39* BILITOT 0.6 0.2 0.5 BILIDIR 0.2 0.1 -- Imaging: Results for orders placed or performed during the hospital encounter of 03/24/21 CT Head wo & Multiphase CTA Head/Neck (THROMBECTOMY PROTOCOL) (Exam End: 03/24/2021 11:08 AM) Impression 1. No acute intracranial process. 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 2. 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 3. Otherwise unremarkable major arteries of the head and neck. 4. Mildly aneurysmal aortic arch. Thank you for letting us participate in the care of this patient. If you are a health care provider and have any questions regarding this report, please contact the number below. For patients who have questions please contact the health rn critical care that requested your imaging first. Chest One View (Exam End: 03/24/2021 1:39 PM) Impression No acute cardiopulmonary abnormality. Stable cardiomegaly. Thank you for letting us participate in the care of this patient. If you are a health care provider and have any questions regarding this report, please contact the number below. For patients who have questions please contact the health rn critical care that requested your imaging first. Electronically signed by: Zackery Broderick MD, [facility] ([phone]), at 03/24/2021 1:42 PM MRI Brain wo Contrast (Exam End: 03/24/2021 9:25 PM) Impression 1. No acute infarction, mass or mass effect. 2. Encephalomalacia within the superior right frontal lobe and posterior occipital lobe consistent with sequela of remote prior infarct. 3. Small foci of susceptibility related signal loss at the tirado matter white matter boundary within both cerebral hemispheres. Differential includes small microhemorrhages from chronic small vessel ischemic disease or possibly cerebral amyloid angiopathy. Preliminary report signed by: Robbin Bassett at 03/24/2021 9:36 PM I have personally reviewed the image(s) and the resident's interpretation and agree with the findings, Ravi Guzman MD at 03/24/2021 10:15 PM Thank you for letting us participate in the care of this patient. If you are a health care provider and have any questions regarding this report, please contact the number below. For patients who have questions please contact the health rn critical care that requested your imaging first. Assessment/Plan: Cong Khan is a 66 y.o. male right-handed with pmhx of Hepatitis C (s/p treatment with Harvoni), mitral valve prolapse s/p mitral valve??repair x1 and??replacement x2, aortic valve replacement, HTN, CHF, A. 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 On arrival he was found to be encephalopathic in addition to prior deficits from right sided stroke.Initial concern for stroke however MRI without acute infarct. Considering significant improvement inencephalopathy without intervention an infectious or inflammatory condition is unlikely. 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 24EEG with independent bitemporal slowing R > L. No seizures were recorded. Considering extensive cardiac history cannot rule out an arrythmia causing hypoperfusion with prolonged recovery. Will discuss with cardiology regarding potential further workup for this, and whether he may benefit from repeat Ziopatch on DC. He has known Afib on eliquis. Pending Cardiology recommendation, he is MR for discharge today on new ASM with follow up in neurology clinic. # AMS -Admit to neurology -Neuro check & vitals Q2hrs / Q2hrs - s/p MRI Brain - defer LP -cVEEG monitoring -CBC/BMP/TSH ?? # Atrial Fibrillation -Resume AC post LP -C/W Metoprolol ?? #Home Meds -Finasteride 5mg QD -Flomax 0.4mg -Torsemide 10mg QD -Pantoprazole -Entresto 97-103mg ?? # Prophylaxis -RBOs -SCDs ?? # Supportive care -Regular diet -Tylenol PRN -Up with assistance ?? Chetan Hoff MD Neurology, PGY-2 General Neurology Service #[id number] 03/25/2021 ?? Neurology Attending ?? I saw and evaluated the patient with the neurology team. I have reviewed the resident's history during the visit and I agree with the details as written. My physical examination confirms the resident'sfindings. The assessment and plan were formulated in discussion with me at the time of the visit Tiarra agree with them as documented. ?? Major issues addressed and plan: ?? History: Patient with history of right frontal and posterior strokes and mild residual hemiparesis now presents with confusion and encephalopathy. Suspicion for seizure. Doing much better today. ?? Exam: Very lethargic at time of admission in ED. Baseline left hemiparesis. Not quite alert ?? Data: No new infarction on MRI . EEG shows some right sided slowing. No clear epileptic abnormality Impression and plan: We suspect he had a seizure. MRI negative for stroke. EEG shows left-sided slowing. We will treat him with Keppra. Telemetry shows a fair number of PVCs. Can follow-up with outpatient cardiology. I doubt that the event in question was a cardiac arrhythmia. Okay for discharge today ? Saul Huerta [place] [address] Pager #[phone] Email: [email or web address] ?? Cha Park RN - 03/25/2021 3:43 AM EDT Illness Severity [] Stable [x] Watcher [] Unstable Patient Summary Reason for admission: 66-year-old male who presented to [facility] with altered mental status, headache CTA and concern is for new stroke. Patient sent for neurology evaluation. Relevant PMH: large right parietal/occipital stroke in the past as well as atrial fibrillation on Eliquis, systolic heart failure, aneurysm of aortic arch, hypertension, mitral valve replacement and aortic valve replacement Significant 24 hour events: patient transferred to NSCU from ED around 1640, AVSS, VEEG applied Night 03/24: MRI and urinalysis completed, frequent cardiac alarms ringing for runs of PVCs. Had some anxiety, and was awake most of the night with back pain. MD notified and flexeril ordered and given. Neuro: Neuro exam: alert and oriented x4. PERRLA, follows commands, denies numbness or tingling CV: EKG obtained, known A-fib, Left bundle branch block Resp: Clear on RA GI: LBM SOCIAL INSURANCE SPECIALIST : Voiding in urinal Skin: Social: Hodan Action List Mobility goals: a little unsteady on feet, handholding is fine to bathroom, but longer distances he may need a walker Patient education: safety Serial Labs: AM labs Other: Situational Awareness & Contingency Planning If SBP>180, treat w/ PRNs If change in neuro status, notify team Synthesis (Verbal Only) (Brief summary, ask questions, restate de guzman action/to do items) Summary (OLD) To Do (OLD) Aj Go Jr., MD - 03/25/2021 1:13 AM EDT Neurology Progress Note Called by nursing, pt reported back pain, has not responded to Tylenol. He states that he often has LBP in the morning, which improved throughout the day with activity. This seems similar to him, likely related to being largely confined to bed. Will try cyclobenzaprine 10mg. Aj Go Jr, MD Tamiko Murguia RN - 03/24/2021 5:15 PM EDT Patient Summary Reason for admission: 66-year-old male who presented to [facility] with altered mental status, headache CTA and concern is for new stroke. Patient sent for neurology evaluation. Relevant PMH: large right parietal/occipital stroke in the past as well as atrial fibrillation on Eliquis, systolic heart failure, aneurysm of aortic arch, hypertension, mitral valve replacement and aortic valve replacement Significant 24 hour events: patient transferred to NSCU from ED around 1640, AVSS Neuro: Neuro exam: lert & oriented x3 (disoriented to situation), PERRLA, follows commands, denies numbness or tingling CV: EKG obtained, known A-fib Resp: Clear on RA GI: LBM SOCIAL INSURANCE SPECIALIST : Voiding in urinal Skin: Social: Hodan @ bedside Action List Mobility goals: not OOB yet, safety Patient education: safety Serial Labs: AM labs Other: needs urinalysis, MRI Situational Awareness & Contingency Planning If SBP>180, treat w/ PRNs If change in neuro status, notify team Tamiko Murguia RN - 03/24/2021 5:00 PM EDT Cong Khan arrived to 521 @ 1640 from ED. Oriented to room, call wayne within reach, educated onimportance of using prior to getting OOB, AVSS, bed locked in low position, purposeful hourly rounding, bed alarm on. documented in this encounter H&P Notes Saul Huerta MD - 03/24/2021 5:12 PM EDT Images from the original note were not included. Neurology Admission History and Physical Patient name: Cong Khan Date of : 1955 PCP: Pricila Geller APRN Stroke Assessment: Date last well known:: 03/23/21 Time last well known:: 0800 Date of discovery of symptoms:: 03/24/21 Time of discovery of symptoms:: 0600 Was the time difference between last known well and ED arrival less than 4.5 hours?: No Date acute stroke team was at bedside:: 03/24/21 CT interpretation date: 03/24/21 FAST-ED Score = 0 ??? Facial Palsy: 0 ??? Arm Weakness: 0 ??? Speech Change: 0 ??? Eye Deviation: 0 ??? Denial/Neglect: 0 CC: AMS HPI: Cong Khan is a 66 y.o. male right-handed with pmhx of Hepatitis C (s/p treatment with Harvoni), mitral valve prolapse s/p mitral valve repair x1 and replacement x2, aortic valve replacement, HTN,CHF, A. 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 History is taken from his partner, Hodan: Yesterday morning he was feeling tired and did not feel like going to work. She then went to work and around 1300 he said he had a headache and drank coffee and the headache went away. He went about his day and did not take any tylenol/ibuprofen. He was watching [email or web address] last night and they had dinner & he took a nap in front of the TV. After waking up he finished his movie she had asked him to come to bed and she went upstairs but forgot she left the wood stove on. When she went downstairs she noticed he was bare below the waist which was weird because they have aroommate and he does not do that. He stated he had an accident. She felt like he was maybe weak on the right side while walking up the stairs and holding on the railing and then went to bed. He immediately went to sleep which is weird because he did not brush his teeth or take his medications. In the middle of the night he had a bad cough and it seemed like he was coughing up liquid. They got up around 0600 and she found him difficult to wake up and giving one word answers. He had residual weakness/numbness of the left side of his body from the prior stroke. He has chronic weakness of the right leg from vascular issues. Denies recent fevers, chills etc. Home Medications: No current facility-administered medications on file prior to encounter. Current Outpatient Medications on File Prior to Encounter Medication Sig Dispense Refill ??? torsemide (Demadex) 10 mg Tablet Take 1 tablet by mouth daily. 90 tablet 3 ??? sacubitriL-valsartan (Entresto) 97-103 mg Tablet tablet Take 1 tablet by mouth 2 times daily. 60tablet 3 ??? esomeprazole (NexIUM) 20 mg Capsule, Delayed Release(E.C.) Take 1 capsule by mouth 2 times daily. 180 capsule 3 ??? cholecalciferol, Vitamin D3, (D3-2000) 50 mcg (2,000 unit) Capsule Take by mouth. ??? fish oil-omega-3 fatty acids 1,000 mg Capsule Take 1,200 mg by mouth 2 times daily. ??? b complex vitamins Capsule Take [...] mg in am. 90 tablet 3 ??? apixaban (Eliquis) 2.5 mg Tablet Take 1 tablet by mouth 2 times daily. 180 tablet 3 ??? tamsulosin (FLOMAX) 0.4 mg Capsule 0.4 mg daily. 11 ??? finasteride (PROSCAR) 5 mg Tablet 5 mg daily. 11 ??? aspirin 81 mg Tablet, Chewable Take 81 mg by mouth daily. 30 tablet 3 Current Medications: Scheduled Meds: Past Medical & Surgical History: Past Medical History: Diagnosis Date ??? Alcohol use disorder ??? Atrial fibrillation ??? CHF (congestive heart failure) ??? Hypertension ??? Mitral valve prolapse ??? Stroke Past Surgical History: Procedure Laterality Date ??? AORTIC VALVE REPLACEMENT ??? GASTRIC FUNDOPLICATION ??? MITRAL VALVE REPLACEMENT x2 ??? TOTAL HIP ARTHROPLASTY ??? TRICUSPID VALVULOPLASTY ??? XR JOINT ASPIRATION - LARGE JOINT RIGHT Right 06/19/2019 XR Fluoro Guided Joint Aspiration Large Right 06/19/2019 Latonia Caraballo, COLLECTIONS ASSOCIATE [facility] RAD XRAY Allergy: No Known Allergies Family History: Family History Problem Relation Age of Onset ??? Emphysema Mother ??? Hypertension Mother ??? Alcohol Use Disorder Father ??? Aneurysm Father ??? Hypertension Father ??? Substance Use Disorder Brother ??? Colorectal Cancer Neg Hx ??? Inflammatory Bowel Disease Neg Hx ??? Celiac Disease Neg Hx ??? Esophageal Cancer Neg Hx Social History: Smoking: Ex Smoker EtOH: Ex Drinker Illicits: Marijuana Living situation: Lives with partner and a roommate Occupation: [employer] Social History Socioeconomic History ??? Marital status: Single Spouse name: Not on file ??? Number of children: Not on file ??? Years of education: Not on file ??? Highest education level: Not on file Occupational History ??? Not on file Tobacco Use ??? Smoking status: Former Smoker ??? Smokeless tobacco: Never Used Substance and Sexual Activity ??? Alcohol use: Not Currently Comment: Former heavy daily user quit in 2013 ??? Drug use: Not Currently Types: Marijuana Comment: Former cocaine user ??? Sexual activity: Never Other Topics Concern ??? Not on file Social History Narrative ??? Not on file Social Determinants of Health Financial Resource Strain: ??? Difficulty of Paying Living Expenses: Food Insecurity: ??? Worried About Running Out of Food in the Last Year: ??? Ran Out of Food in the Last Year: Transportation Needs: ??? Lack of Transportation (Medical): ??? Lack of Transportation (Non-Medical): Physical Activity: ??? Days of Exercise per Week: ??? Minutes of Exercise per Session: Stress: ??? Feeling of Stress : Social Connections: ??? Frequency of Communication with Friends and Family: ??? Frequency of Social Gatherings with Friends and Family: ??? Attends Yazidism Services: ??? Active Member of Clubs or Organizations: ??? Attends Club or Organization Meetings: ??? Marital Status: Intimate Partner Violence: ??? Fear of Current or Ex-Partner: ??? Emotionally Abused: ??? Physically Abused: ??? Sexually Abused: Review of systems: Constitutional: No fevers or chills Eyes: No vision changes, no diplopia, no blurry vision ENT: No rhinorrhea or pharyngitis, no meningismus CV: No chest pain or palpitations Resp: No cough, no shortness of breath GI: No nausea, vomiting, diarrhea or constipation : No dysuria, no incontinence Heme: No bleeding or bruising Endo: No polyuria or cold intolerance Neuro: See HPI Psych: No depression, normal sleep [x] Review of systems otherwise negative Physical Exam: GCS Scale Vitals: Temp: [37 ??C (98.6 ??F)] Heart Rate: [72-81] Resp: [14-20] BP: (102-109)/(69-77) SpO2: [93 %-98 %] Heart Rate from SpO2: [52 bpm-79 bpm] Gen: Patient of apparent stated age, well nourished, well developed, lethargic but at times laughinginappropriately Neck: Supple, no meningismus, no carotid bruit, no occipital tenderness CV: + S1, S2, RRR, no murmur Resp: CTA B/L Abd: +normoactive bowel sounds, soft, nontender, nondistended Ext: No edema. No bony deformity Neuro Exam: MS: AAOx4, clear language, no dysarthria, follows commands CN: PERRL, EOMI, visual thurman full Facial sensation intact, no facial asymmetry Hearing intact to finger rub Palate elevates symmetrically, tongue protrudes midline SCM and trap strength intact Motor: Normal bulk and tone. UE: 5/5 R, 4/5 L Arm abduction at shoulder 5/5 R, 4/5 L Elbow extension 5/5 R, 5/5 L Elbow flexion 5/5 R, 5/5 L Orchestra Teacher LE: 4/5 R, 4/5 L Hip flexion 5/5 R, 4/5 L Knee extension 5/5 R, 5/5 L Knee flexion 5/5 R, 5/5 L Foot dorsiflexion 5/5 R, 5/5 L Foot plantar flexion Sensation: Intact to light touch Toes - R mute, L down Coordination: Finger to nose intact, no dysmetria Heel-knight intact + tremor Gait: NT NIH Stroke Scale NIH Stroke Scale Date NIH Stroke Scale Time Level of Consciousness 0 LOC Questions 0 LOC Commands 0 Best Gaze 0 Vision 0 Facial Palsy 0 Motor Arm, Left 1 Motor Arm, Right 0 Motor Leg, Left 1 Motor Leg, Right 1 Limb Ataxia 1 Sensory 1 Best Language 0 Dysarthria 0 Extinction and Inattention: 0 NIH Total Score 5 Labs: Recent Results (from the past 24 hour(s)) Basic Metabolic Panel (non-fasting) Result Value Ref Range Glucose Lvl 82 65 - 199 mg/dL BUN 31 (H) 10 - 20 mg/dL Creatinine 1.81 (H) 0.80 - 1.50 mg/dL Sodium 135 135 - 145 mmol/L Potassium 4.0 3.5 - 5.0 mmol/L Chloride 101 98 - 107 mmol/L CO2 22 22 - 31 mmol/L Anion Gap 12 5 - 15 mmol/L Calcium 8.3 (L) 8.5 - 10.5 mg/dL Estimated GFR 38 (L) >=60 mL/min/1.73 m?? Hepatic Function Panel Result Value Ref Range Total Protein 6.3 6.1 - 8.0 gm/dL Albumin 3.7 3.2 - 5.2 gm/dL AST 13 0 - 39 unit/L ALT 8 0 - 55 unit/L Alk Phos 38 (L) 40 - 130 unit/L Total Bilirubin 0.2 0.2 - 1.3 mg/dL Bili, Direct 0.1 0.0 - 0.3 mg/dL Prothrombin Time Result Value Ref Range PT 12.3 9.4 - 12.5 sec INR 1.1 Troponin Result Value Ref Range Troponin-T <0.01 0.00 - 0.00 ng/mL TSH [place] Result Value Ref Range TSH 0.98 0.27 - 4.20 mcIU/mL Hemogram Result Value Ref Range WBC 4.3 4.0 - 9.5 x10(3)/mcL RBC 4.26 (L) 4.58 - 5.54 x10(6)/mcL Hemoglobin 13.3 (L) 13.7 - 16.5 gm/dL Hematocrit 40.0 (L) 40.5 - 48.5 % MCV 93.9 (H) 82.9 - 93.1 fL MCH 31.2 27.5 - 32.1 pg MCHC 33.3 32.0 - 35.7 gm/dL Platelets 184 145 - 357 x10(3)/mcL RDWSD 47.5 (H) 36.0 - 45.0 fL RDWCV 13.8 11.4 - 13.8 % MPV 10.0 7.6 - 12.9 fL nRBC % Auto 0.0 % nRBC Abs Auto 0.000 0.000 - 0.000 x10(3)/mcL Differential, Automated Result Value Ref Range Neutrophils % 66.2 % Neutr Abs (ANC) 2.87 1 - 6 x10(3)/mcL Lymphocytes % 24.0 % Lymphocytes Abs 1.0 0.9 - 3.2 x10(3)/mcL Monocytes % 7.4 % Monocyte Abs 0.3 0.3 - 0.9 x10(3)/mcL Eosinophils % 1.2 % Eosinophils Abs 0.0 0.0 - 0.4 x10(3)/mcL Basophils % 0.7 % Basophils Abs 0.0 0.0 - 0.1 x10(3)/mcL Immature Gran % 0.50 % Cassie Gran Abs 0.02 0.00 - 0.04 x10(3)/mcL Urinalysis with reflex Culture Specimen: Clean Catch Urine Result Value Ref Range Glucose UA Negative Negative mg/dL Protein UA Negative Negative mg/dL Bilirubin UA Negative Negative mg/dL Urobilinogen UA Normal Normal mg/dL pH UA 5.5 5.0 - 8.0 Blood UA Negative Negative mg/dL Ketones UA Negative Negative mg/dL Nitrite UA Negative Negative Leukocytes UA Negative Negative mcL Appearance UA Clear Clear Spec [place] UA 1.012 1.006 - 1.030 Color UA Yellow Yellow Culture Reflexed No Assessment and Plan: Cong Khan is a 66 y.o. male right-handed with pmhx of Hepatitis C (s/p treatment with Harvoni), mitral valve prolapse s/p mitral valve repair x1 and replacement x2, aortic valve replacement, HTN,CHF, A. 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 The etiology of his presentation is unclear at this time and he was noted to improve throughout his stay in the ED. Differentials at this time would include, embolic shower, seizures or toxic-metabolic encephalopathy. Would plan for MRI, cVEEG and potential LP to look for infectious etiologies of his presentation. Alteplase: Alteplase decision time: 1350 Was Alteplase given?: No Exclusion criteria (contraindications). Select all that apply:: Acute bleeding diathesis (low platelet count, increased PTT, INR > or equal to 1.7 or use of NOAC Other reasons (Hospital related or other factors). Select all that apply: Delay in patient arrival/outside window # AMS -Admit to neurology, NSCU level of care -Neuro check & vitals Q2hrs / Q2hrs -MRI Brain -LP -cVEEG monitoring -CBC/BMP/TSH # Atrial Fibrillation -Resume AC post LP -C/W Metoprolol #Home Meds -Finasteride 5mg QD -Flomax 0.4mg -Torsemide 10mg QD -Pantoprazole -Entresto 97-103mg # Prophylaxis -RBOs -SCDs # Supportive care -Regular diet -Tylenol PRN -Up with assistance Vi Keith MD Neurology Resident Neurology Attending I saw and evaluated the patient with the neurology team. I have reviewed the resident's history during the visit and I agree with the details as written. My physical examination confirms the resident'sfindings. The assessment and plan were formulated in discussion with me at the time of the visit Tiarra agree with them as documented. Major issues addressed and plan: History: Patient with history of right frontal and posterior strokes and mild residual hemiparesis now presents with confusion and encephalopathy. Suspicion for seizure. Exam: Very lethargic at time of admission in ED. Baseline left hemiparesis. Data: No new infarction on MRI Impression and plan: We suspect he had a seizure. MRI negative for stroke. EEG shows left-sided slowing. We will treat him with Keppra. Saul Huerta MD [place] [address] Pager #[phone] Email: [email or web address] Standard [facility] [place] Swallow Screen: This screen is to be used to document a Swallow Screen prior to ingestion of water and /or oral medications for patients with possible stroke (Ischemic or Hemorrhagic). Exclusion Criteria: A swallow screen is not to be performed on patients who: ?? have a decreased level of consciousness. ?? are not able to follow simple commands. ?? are hypoxic, or have increasing O2 needs or may need to be intubated. ?? have a G/J tube for nutrition. ?? have a recent history of a swallowing disorder *These patients should remain NPO (HOLD MEDS) and the physician notified for further orders. Swallow Screen Using Water: None of the Exclusion Criteria as mentioned above is present? Patient is alert and sitting upright? Able to close lips and tongue is midline? Able to cough, manage oral secretions with dry voice? ONLY IF ABOVE ALL YES, Able to swallow 30 ml of water without coughing, displaying a wet voice or choking? Repeat Twice. ??? If YES to all responses, proceed with water and oral medications as well as diet as medical provider deems appropriate. Consider BALANCING MACHINE SET UP WORKER consult for full evaluation and diet recommendations. ??? If NO to any of the responses, stop immediately, keep patient NPO and notify physician. documented in this encounter Procedure Notes Abdifatah Green MD - 03/25/2021 4:16 PM EDTAssociated Order(s): EEG 24 HOUR MONITORING, PORTABLE [facility] Department of Neurology Inpatient Video EEG Report Name of the Patient: Cong Khan Date of : 1955 Date of Service: 03/25/21 Resident/Fellow: Abdifatah Green MD Attending: Jodee Cardoza MD BRIEF HISTORY Cong Khan is a 66 y.o. year old patient with pmhx of Hepatitis C (s/p treatment with Harvoni),mitral valve prolapse s/p mitral valve repair x1 and replacement x2, aortic valve replacement, HTN, CHF, A. 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 MEDICATIONS Current Facility-Administered Medications Medication Dose Route Frequency Provider Last Rate Last Admin levETIRAcetam (Keppra) tablet 500 mg 500 mg Oral BID Chetan Hoff MD 500 mg at 03/25/21 1151 aspirin chewable tablet 81 mg 81 mg Oral Daily Taryn Niño APRN 81 mg at 03/25/21 08 pantoprazole EC (Protonix) tablet 20 mg 20 mg Oral BID Taryn Niño APRN 20 mg at 03/25/21 08 finasteride (Proscar) tablet 5 mg 5 mg Oral Daily Taryn Niño APRN 5 mg at 03/25/21 08 folic acid (Folvite) tablet 1,000 mcg 1 mg Oral Daily Taryn Niño APRN 1,000 mcg at 03/25/21 08 metoprolol succinate XL (Toprol-XL) tablet 150 mg 150 mg Oral Daily after breakfast Taryn Niño APRN 150 mg at 03/25/21 08 And metoprolol succinate XL (Toprol-XL) tablet 100 mg 100 mg Oral Nightly Taryn Niño APRN 100 mg at 03/24/212035 sacubitriL-valsartan (Entresto) 97-103 mg per tablet 1 tablet 1 tablet Oral BID Taryn Niño APRN 1 tablet at 03/25/21 08 tamsulosin (Flomax) capsule 0.4 mg 0.4 mg Oral Daily Taryn Niño APRN 0.4 mg at 03/25/21851 torsemide (Demadex) tablet 10 mg 10 mg Oral Daily Taryn Niño COLLECTIONS ASSOCIATE 10 mg at 03/25/21 08 sodium chloride 0.9 % (flush) flush 5 mL 5 mL Intravenous BID Taryn Niño APRN 5 mL at 03/25/21 08 sodium chloride 0.9 % (flush) flush 5-20 mL 5-20 mL Intravenous Q1 Min PRN Taryn Niño APRN lidocaine (Xylocaine) 1% (10 mg/mL) injection 3 mg 0.3 mL Subcutaneous Once PRN Taryn Niño APRN senna-docusate (Pericolace) 8.6-50 mg per tablet 2 tablet 2 tablet Oral BID Taryn Niño APRN 2 tablet at 03/25/21 0854 polyethylene glycoL (Miralax) packet 17 g 17 g Oral Daily Taryn Niño APRN magnesium hydroxide (Milk of Magnesia) (240 mg/mL) oral liquid 10 mL 10 mL Oral Nightly PRN Taryn Niño APRN bisacodyL (Dulcolax) suppository 10 mg 10 mg Rectal Daily PRN Taryn Niño APRN labetaloL (Normodyne) (5 mg/mL) injection solution 10-20 mg 10-20 mg Intravenous Q15 Min PRN Taryn Niño APRN acetaminophen (Tylenol) tablet 975 mg 975 mg Oral Q6H PRN RenayTaryn driver COLLECTIONS ASSOCIATE 975 mg at 03/24/21 2150 Or acetaminophen (Tylenol) (32.02 mg/mL) oral liquid 975 mg 975 mg Per G Tube Q6H PRN Ailyn Niño APRN Or acetaminophen (Tylenol) suppository 975 mg 975 mg Rectal Q6H PRN Taryn Niño APRN METHODS A 21 channel digitized electroencephalogram was performed in the [facility] by the [facility]. The 10/20 international system of electrode placement was used and bipolar and referential electrode montages were recorded. In addition to EEG the patient was monitored for EKG and lateral/vertical eye movements. Video was recorded during the session. The duration of the recording was 15 hours and 40 minutes. The patient was recorded during wakefulness, drowsiness, and sleep. ELECTROENCEPHALOGRAPHER'S REPORT Background During the awake state with the eyes closed the background consisted of a moderate amplitude, 9 Hz posterior reactive rhythm that attenuated appropriately with eye opening. Beta activity was distributed diffusely with an anterior predominance. There was a normal anterior-posterior voltage gradient. With eye opening the background activity changed to a low voltage mixture of alpha, beta, and occasional theta range frequencies. There was nearly continuous right frontal greater than occasional left temporal independent delta range slowing noted. Sleep Stage II/III sleep was obtained and consisted of symmetrical sleep spindles, vertex sharp waves, anddiffuse delta slowing. Abnormal Interictal Activity None Clinical Events None Provocative Maneuvers Hyperventilation was not performed. Photic stimulation was not performed. INTERPRETATION AND CLINICAL CORRELATION This EEG is abnormal due to frequent right frontal and independent occasional left temporal slowing suggestive of underlying cerebral dysfunction of non specific etiology including known underlying structural lesion on the right. Abdifatah Green MD Clinical Neurophysiology Fellow - PGY-5 Personal Pager: [phone] 03/25/21 Associated attestation - Jodee Cardoza MD - 03/28/2021 12:21 PM EDT Epilepsy Attending I was the attending physician supervising the fellow in the care as noted. The videoEEG was reviewedin detail by me together with the fellow. I agree with the report. Jodee Cardoza MD [facility] [place] Jeffery Hurst - 03/24/2021 6:29 PM EDT [facility] Department of Neurology Inpatient Continuous EEG Report Name of the Patient: Cong Khan Date of : 1955 Date of Service: 03/24/2021 Referring physician: Chetan Hoff MD BRIEF HISTORY: Cong Khan is a 66 y.o. patient with a history of R parietooccipital stroke, afib, systolic heart failure. MEDICATIONS: Current Facility-Administered Medications Medication Dose Route Frequency Provider Last Rate Last Admin ??? pantoprazole EC (Protonix) tablet 20 mg 20 mg Oral BID Taryn Niño APRN ??? [START ON 03/25/2021] metoprolol succinate XL (Toprol-XL) tablet 150 mg 150 mg Oral Daily after breakfast Taryn Niño APRN And ??? metoprolol succinate XL (Toprol-XL) tablet 100 mg 100 mg Oral Nightly Taryn Niño APRN ??? sodium chloride 0.9 % (flush) flush 5 mL 5 mL Intravenous BID Huerfano, Taryn C, COLLECTIONS ASSOCIATE ??? sodium chloride 0.9 % (flush) flush 5-20 mL 5-20 mL Intravenous Q1 Min PRN Huerfano, Taryn C, COLLECTIONS ASSOCIATE ??? lidocaine (Xylocaine) 1% (10 mg/mL) injection 3 mg 0.3 mL Subcutaneous Once PRN Huerfano, JillianC, COLLECTIONS ASSOCIATE ??? senna-docusate (Pericolace) 8.6-50 mg per tablet 2 tablet 2 tablet Oral BID Huerfano, Taryn C, COLLECTIONS ASSOCIATE ??? polyethylene glycoL (Miralax) packet 17 g 17 g Oral Daily Renay, Taryn C, COLLECTIONS ASSOCIATE ??? magnesium hydroxide (Milk of Magnesia) (240 mg/mL) oral liquid 10 mL 10 mL Oral Nightly PRN Huerfano, Taryn C, COLLECTIONS ASSOCIATE ??? bisacodyL (Dulcolax) suppository 10 mg 10 mg Rectal Daily PRN Renay, Taryn C, COLLECTIONS ASSOCIATE ??? labetaloL (Normodyne) (5 mg/mL) injection solution 10-20 mg 10-20 mg Intravenous Q15 Min PRN Huerfano, Taryn C, COLLECTIONS ASSOCIATE ??? acetaminophen (Tylenol) tablet 975 mg 975 mg Oral Q6H PRN Huerfano, Taryn C, COLLECTIONS ASSOCIATE Or ??? acetaminophen (Tylenol) (32.02 mg/mL) oral liquid 975 mg 975 mg Per G Tube Q6H PRN Renay, Taryn C, COLLECTIONS ASSOCIATE Or ??? acetaminophen (Tylenol) suppository 975 mg 975 mg Rectal Q6H PRN Renay, Taryn C, COLLECTIONS ASSOCIATE METHODS: A 21 channel digitized continuous electroencephalogram with video was set up and recording started at 18:09 on 03/24/2021. Following explanation of the procedure, the 10/20 international system of electrode placement was used to determine electrode placement and disposable MRI conditional electrodes were applied using the paste/collodion method of application. In addition to EEG the patient was monitored for EKG. Video was recorded during the session. ANESTHESIA TECHNICIAN'S REPORT: Performed by: Jeffery Hurst At the onset of the recording the patient was awake. Movement and other artifact was not significant. Comments: None documented in this encounter ED Notes Yvonne Landaverde RN - 03/24/2021 3:33 PM EDT 1110: Pt to and from CT with RN and Neuro MD. 1120: Pt's at bedside speaking with neuro MD 1125: Blood drawn from IV in right AC. Pt tolerated well 1128: Pt provided with urinal for urine sample 1135: Pt provided with fresh gown and fresh sheets 1159: Pt covid swabbed and placed on covid precautions per neuro's orders 1300: Chest xray obtained 1415: Covid test negative and orders discontinued at this time. Pt remains sleeping in bed and at the bedside 1530: Report to 5West Maikel Zheng MD - 03/24/2021 10:53 AM EDT ED ATTENDING ATTESTATION NOTE The patient was seen in conjunction with the resident physician. I have independently performed the de guzman portions of the history and physical exam. I have reviewed the nursing notes, vital signs, and all diagnostic studies personally including labs, imaging studies and EKGs. I have discussed the details of the case with the resident and agree with the assessment and plan as described in the resident note unless noted otherwise. Brief Summary: 66-year-old male with a history of large right parietal/occipital stroke in the past as well as atrial fibrillation on Eliquis, systolic heart failure, aneurysm of aortic arch, hypertension, mitral valve replacement and aortic valve replacement who presented to [facility] with altered mental status, headache CTA and concern is for new stroke. Patient sent for neurology evaluation. Head and neck performed as well as basic labs and patient eval by neurology and will be admitted to their service for further work-up and management. Final Assessment: Altered mental status, headache, stroke-like symptoms Did this case involve critical care? No Maikel Zheng MD 03/24/21 1215 Liz Mesa MD - 03/24/2021 10:34 AM EDT ED Resident Note Cong Khan is an 66 y.o. male who presents to the ED with: Chief Complaint Patient presents with ??? Hospital Transfer ??? Cerebrovascular Accident I saw this patient on 03/24/2021. History is from the patient at the bedside and chart review. HPI Cong Khan is a 66 y.o. 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 On arrival, pt is alert and oriented although unclear of what happened last night. Per EMS, the patient's partner attempted to wake him up this AM and he was difficult to rouse. Reportedly had right sided weakness and is different from his baseline. Pt reports residual left sided weakness from his prior stroke. He is not endorsing any new symptoms although he does not report any symptoms at this time. Review of Systems: Review of Systems 10 point review of systems negative except as per HPI Physical Exam: Patient Vitals for the past 24 hrs: BP Temp Temp src Pulse Resp SpO2 03/24/21 1640 112/68 36.9 ??C (98.4 ??F) Temporal 92 15 92 % 03/24/21 1600 97/61 37.5 ??C (99.5 ??F) Temporal 85 24 95 % 03/24/21 1500 103/68 -- -- 76 21 96 % 03/24/21 1430 108/63 -- -- 79 14 95 % 03/24/21 1400 104/65 -- -- 80 19 95 % 03/24/21 1330 93/71 -- -- 77 20 96 % 03/24/21 1300 109/72 -- -- 76 17 96 % 03/24/21 1230 109/69 -- -- 79 15 96 % 03/24/21 1200 107/69 -- -- 77 14 95 % 03/24/21 1145 102/73 -- -- 77 20 -- 03/24/21 1100 107/69 -- -- 72 20 -- 03/24/21 1045 106/74 -- -- 80 17 98 % 03/24/21 1043 103/77 37 ??C (98.6 ??F) Oral 81 18 93 % Physical Exam General: Laying in bed, NAD HEENT: Normocephalic, atraumatic. MMM. Nares patent. Neck: supple. Resp: No increased work of breathing. Chest: Bilateral chest rise. GI: Soft. No tenderness on palpation x4 quadrants. Extremities: Long bones stable. Skin: Warm and well perfused. Neuro: Moves all extremities. Endorses decreased sensation to left face, arm and leg. Psych: Normal judgment and appropriate affect. ED Course: - Patient seen under the supervision of the attending physician. - Medications, allergies, and past medical history reviewed. Last wbc, hgb, hct plt Recent Labs 03/24/21 1111 WBC 4.3 HGB 13.3* HCT 40.0* Last 3 Lytes Recent Labs 03/24/21 1111 01/09/21 1314 10/24/20 1324 NA 135 139 142 K 4.0 4.2 3.8 CL 101 104 102 CO2 22 26 34* BUN 31* 33* 22* CREATININE 1.81* 1.57* 1.45 Last 3 Coags Recent Labs 03/24/21 1111 PT 12.3 INR 1.1 ED Course as of Mar 24 2035 Tue March 24, 2021 1100 H/o prior right sided CVA with residual defects - decreased sensation to left side. Exam appears stable from prior 1146 [facility] Jayden Assessment and Plan: MDM 66 y.o. male with AMS and concern for stroke On exam, pt is non-toxic appearing, hemodynamically stable, and afebrile. NIH scale 5. On arrival, pt has decreased sensation to left side diffusely, which appears to be stable from prior. There does not appear to be an acute neurological exam finding but per partner, he is not at his baseline. Neurology was at bedside upon initial evaluation - took the patient to CT scanner for imaging. Upon return to the ED, his neuro exam appeared to improve but he was admitted to the Neurology service for further work-up and stroke rule out. Assessment: 1. AMS (altered mental status) 2. Atrial fibrillation, unspecified type 3. Altered mental status, unspecified altered mental status type Plan: - Admit to Neurology Liz Mesa MD Resident 03/24/212039 Elizabeth Garcia MD - 03/24/2021 8:50 AM EDT EM attending brief transfer acceptance note: Cong Khan is a 66 y.o. who I accepted in transfer from [facility] The patient will be evaluated in the Emergency Department for parietal/occipital stroke The EM team will contact the Neurology team as needed The OSH does not agree to take the patient back in transfer after our evaluation and treatment. Transfer and stabilization prior to transfer were discussed Landing in ED for Neuro to determine level of care. Large right pariet/occip stroke. HD stable. Not candidate for intervention. On eliquis. To getting. Getting rectal ASA and IVF. Elizabeth Garcia MD 03/24/21852 documented in this encounter Miscellaneous Notes Initial Assessments - Bobbi Nance, BEHZAD - 03/25/2021 10:37 AM EDT Office of Care Management Assessment Medical record reviewed. Plan of care and patient status discussed with direct care RN and/or Care Team in multidisciplinary rounds. Screening: Last COVID test: Lab Results Component Value Date [id number] Not Detected 03/24/2021 Per H&P by Vi Keith Cong Khan is a 66 y.o. male right-handed with pmhx of Hepatitis C(s/p treatment with Harvoni), mitral valve prolapse s/p mitral valve??repair x1 and??replacement x2,aortic valve replacement, HTN, CHF, A. 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 ?? Present on Admission: ??? AMS (altered mental status) Patient has not been admitted to a hospital within the last 30 days. Patient receiving hospital care under Inpatient status. Admission order reviewed. Primary Insurance on file: MEDICARE Secondary Insurance on file:@ Primary care provider on file: Pricila Geller, COLLECTIONS ASSOCIATE [phone] Advance Directive on file and Code Status: Received, Attempt Cardiopulmonary Resuscitation - Inpatient Patient???s Functional Status: Independent w/ADLs Living Situation: Multilevel home w/1FOS w/railing Physical [address]: [address] [place] [address] [address] [facility] [address] Supports: Lives w/supportive Significant Other Lachelle Assessment: Patient with no apparent RNCM/SW needs at this time. No housing, transportation, insurance, resources concerns identified at this time. Supports in place to achieve a safe post-hospital transition. No identified barriers to accessing necessary care and/or follow-up after discharge. Plan: Patient to d/c to home via car when medically ready. cable driller/Loom Changer will continue to follow patient???s progress and remain available if situation changes for coordination of care, psychosocial support and/or discharge planning. Office of Care Management CM: Bobbi Nance Pager: [phone] ED Triage - Yvonne Landaverde RN - 03/24/2021 11:07 AM EDT Pt presents as a hospital transfer for a CVA. Per EMS pt's tried to wake him up this morning and pt had a difficult time waking, multiple times. Pt's tried to sit him up in bed and he was unable to due to right sided weakness. Pt is currently A&O times 4. But only opens eyes to speech. When not speaking pt is resting with his head tilted to the right. Per EMS and this is not pt's baseline. Pt states she has numbness on the right side but related this to an old stroke. Pt able to moves arms and legs on command Neuro at bedside. Pt brought to CT by RN Pt is on blood thinners HPI (Adult) Stated Reason for Visit: Pt presents as hospital transfer for CVA History Obtained From: EMS documented in this encounter Plan of Treatment Upcoming Encounters Date Type Specialty Care Team Description 06/16/2022 Laboratory Appointment Lab 06/16/2022 Office Visit Cardiology Gianna Lorenzana PA [facility] er Cardiology Dept [place], [place] [address] (Wo rk) Scheduled Procedures Name [...] Procedure Name Priority Date/Time Associated Comments Diagnosis FACULTY SUPPORT COORDINATOR ELECTRODE PRFM Routine 03/25/2021 4:16 R esults for this PM EDT procedure are i n the results section. ECHOCARDIOGRAM COMPLETE Routine 03/25/2021 3:39 Atrial R esults for this PM EDT fibrillation, procedure are in unspecified type the results section. BMP W/FASTING GLUCOSE Routine 03/25/2021 1:11 Res ults for this AM EDT procedure are i n the results section. HEMOGRAM Routine 03/25/2021 1:11 Results for this AM EDT procedure are i n the results section. DIFFERENTIAL, AUTOMATED Routine 03/25/2021 1:11 R esults for this AM EDT procedure are i n the results section. GREEN TUBE HOLD Routine 03/25/2021 1:11 Results f or this AM EDT procedure are i n the results section. GREEN TUBE HOLD Routine 03/25/2021 1:11 Results f or this AM EDT procedure are i n the results section. HC VENIPUNCTURE Routine 03/25/2021 1:11 AM EDT TRIGLYCERIDE Routine 03/25/2021 1:11 Results for this AM EDT procedure are i n the results section. HC PHOSPHORUS, SERUM Routine 03/25/2021 1:11 Resu lts for this AM EDT procedure are i n the results section. HC MAGNESIUM, SERUM Routine 03/25/2021 1:11 Resul ts for this AM EDT procedure are i n the results section. LDL CHOLESTEROL, DIRECT Routine 03/25/2021 1:11 R esults for this AM EDT procedure are i n the results section. HC LIPID PROFILE Routine 03/25/2021 1:11 Results for this AM EDT procedure are i n the results section. HC HEMOGLOBIN A1C Routine 03/25/2021 1:11 Results for this AM EDT procedure are i n the results section. CALCIUM Routine 03/25/2021 1:11 Results for this AM EDT procedure are i n the results section. HEPATIC FUNCTION PANEL Routine 03/25/2021 1:11 Re sults for this AM EDT procedure are i n the results section. MRI BRAIN WO CONTRAST STAT 03/24/2021 9:25 Res ults for this PM EDT procedure are i n the results section. URINALYSIS WITH REFLEX STAT 03/24/2021 8:45 Re sults for this CULTURE PM EDT procedure are i n the results section. EKG 12-LEAD STAT 03/24/2021 4:58 Atrial Results for this PM EDT fibrillation, procedure are in unspecified type the results section. XR CHEST ONE VIEW STAT 03/24/2021 1:39 Results for this PM EDT procedure are i n the results section. RAPID COVID-19 PCR STAT 03/24/2021 11:50 Resul ts for this ([facility]) AM EDT procedure are in the results section. URINALYSIS WITH REFLEX STAT 03/24/2021 11:36 R esults for this CULTURE AM EDT procedure are i n the results section. EKG 12-LEAD STAT 03/24/2021 11:19 Results for this AM EDT procedure are i n the results section. HC THYROID STIMULATING STAT 03/24/2021 11:11 R esults for this HORMONE, SERUM AM EDT procedure are in the results section. HEMOGRAM STAT 03/24/2021 11:11 Results for this AM EDT procedure are i n the results section. DIFFERENTIAL, AUTOMATED STAT 03/24/2021 11:11 Results for this AM EDT procedure are i n the results section. HC PROTHROMBIN TIME STAT 03/24/2021 11:11 Resu lts for this AM EDT procedure are i n the results section. HC CBC,PLT & AUTO DIFF STAT 03/24/2021 11:11 AM EDT HC TROPONIN T STAT 03/24/2021 11:11 Results fo r this AM EDT procedure are i n the results section. HEPATIC FUNCTION PANEL STAT 03/24/2021 11:11 R esults for this AM EDT procedure are i n the results section. BASIC METABOLIC PANEL STAT 03/24/2021 11:11 Re sults for this (NON-FASTING) AM EDT procedure are in the results section. CT HEAD WO & MULTIPHASE STAT 03/24/2021 11:08 Results for this CTA HEAD/NECK W (STROKE AM EDT proc edure are in PROTOCOL) the results section. documented in this encounter Results Ziopatch 48 Hrs-15 Days (03/25/2021 5:23 PM EDT) Specimen (Source) Anatomical Location Collection Method / Collectio n Time Received Time / Laterality Volume Narrative Deric Monterroso MD - 04/24/2021 3:44 PM EDT [facility] ? Zio Patch? Ambulatory Cardiac Event Monitor [...] asymptomatic. Saul Huerta MD CARDIAC SERVICES ORDERABLES 24 Hour EEG, Portable (03/25/2021 4:16 PM EDT) Narrative Jodee Cardoza MD - 03/25/2021 4:16 PM EDT Jodee Cardoza MD ? 03/28/2021 12:21 PM [facility] Department of Neurology Inpatient Video EEG Report Name of the Patient: ??Cong Khan Date of : ?1954 Date of Service: ?03/25/21 Resident/Fellow: ??Abdifatah Green MD Attending: ??Jodee Cardoza MD BRIEF HISTORY Cong Khan is a 66 y.o. year old pa tient with pmhx of Hepatitis C (s/p treatment with Harvoni) , mitral valve prolapse s/p mitral valve repair x1 and replaceme nt x2, aortic valve replacement, HTN, CHF, A. Fib on Eliquis , tricuspid repair, Prior ETOH Abuse, Right Frontal Infarct w/ res idual Left sided weakness/numbness (2017), Aneurysm of Ao rtic Notch presenting as a transfer from [facility] for concern for AMS and subsequently placed on EEG for possible seizure etiology. MEDICATIONS Current Facility-Administered Medication s Medication Dose Route Frequency Provider Last Rate Last Admin levETIRAcetam (Keppra) tablet 500 mg ?? 500 mg Oral BID Chetan Hoff MD ?? 500 mg at 03/25/21 1151 aspirin chewable tablet 81 mg ??81 mg O ral Daily Taryn Niño APRN ?? 81 mg at 03/25/21 0852 pantoprazole EC (Protonix) tablet 20 mg ??20 mg Oral BID Taryn Niño APRN ?? 20 mg at 03/25/21 085 3 finasteride (Proscar) tablet 5 mg ??5 m g Oral Daily Taryn Niño APRN ?? 5 mg at 03/25/21 0857 folic acid (Folvite) tablet 1,000 mcg ? ?1 mg Oral Daily Taryn Niño APRN ?? 1,000 mcg at 03/25/21 0852 metoprolol succinate XL (Toprol-XL) tab let 150 mg ??150 mg Oral Daily after breakfast Taryn Niño APRN ?? 150 mg at 03/25/21 0853 And metoprolol succinate XL (Toprol-XL) tab let 100 mg ??100 mg Oral Nightly Taryn Niño APRN ?? 100 mg at 03/24/212035 sacubitriL-valsartan (Entresto) 97-103 mg per tablet 1 tablet ??1 tablet Oral BID Taryn Niño APRN ?? 1 tablet at 03/25/21 0853 tamsulosin (Flomax) capsule 0.4 mg ??0. 4 mg Oral Daily Taryn Niño APRN ?? 0.4 mg at 03/25/21 08 52 torsemide (Demadex) tablet 10 mg ??10 m g Oral Daily Taryn Niño APRN ?? 10 mg at 03/25/21 085 3 sodium chloride 0.9 % (flush) flush 5 m L ??5 mL Intravenous BID Taryn Niño APRN ?? 5 mL at 04/10 0857 sodium chloride 0.9 % (flush) flush 5-2 0 mL ??5-20 mL Intravenous Q1 Min PRN Taryn Niño APRN ? lidocaine (Xylocaine) 1% (10 mg/mL) inj ection 3 mg ??0.3 mL Subcutaneous Once PRN Taryn Niño APRN ? senna-docusate (Pericolace) 8.6-50 mg p er tablet 2 tablet ??2 tablet Oral BID Taryn Niño APRN ?? 2 tablet at 03/25/21 0854 polyethylene glycoL (Miralax) packet 17 g ??17 g Oral Daily Taryn Niño COLLECTIONS ASSOCIATE ? magnesium hydroxide (Milk of Magnesia) (240 mg/mL) oral liquid 10 mL ??10 mL Oral Nightly PRN Taryn Niño APRN ? bisacodyL (Dulcolax) suppository 10 mg ??10 mg Rectal Daily PRN Huerfano, Taryn C, COLLECTIONS ASSOCIATE ? labetaloL (Normodyne) (5 mg/mL) injecti on solution 10-20 mg ?? 10-20 mg Intravenous Q15 Min PRN Renay , Taryn C, COLLECTIONS ASSOCIATE ? acetaminophen (Tylenol) tablet 975 mg ? ?975 mg Oral Q6H PRN Renay, Taryn C, COLLECTIONS ASSOCIATE ?? 975 mg at 2150 Or acetaminophen (Tylenol) (32.02 mg/mL) o ral liquid 975 mg ??975 mg Per G Tube Q6H PRN Renay, Taryn Mendoza, A PRN ? Or acetaminophen (Tylenol) suppository 975 mg ??975 mg Rectal Q6H PRN Huerfano, Taryn C, COLLECTIONS ASSOCIATE ? METHODS A 21 channel digitized electroencephalog edna was performed in the [facility] by the [facility] Clinical Neurophysiology Laboratory. The 10/20 international syst em of electrode placement was used and bipolar and referential adilson ctrode montages were recorded. In addition to EEG the patient was monitored for EKG and lateral/vertical eye movements. Vide o was recorded during the session. The duration of the recording w as 15 hours and 40 minutes. The patient was recorded during wakefulness, drowsiness, and sleep. ELECTROENCEPHALOGRAPHER'S REPORT Background During the awake state with the eyes kenji sed the background consisted of a moderate amplitude, 9 Hz posterior reactive rhythm that attenuated appropriately with eye o pening. Beta activity was distributed diffusely with an anterior p redominance. There was a normal anterior-posterior voltage gradie nt. With eye opening the background activity changed to a low vol tage mixture of alpha, beta, and occasional theta range frequen cies. There was nearly continuous right frontal greater than oc casional left temporal independent delta range slowing noted. Sleep Stage II/III sleep was obtained and cons isted of symmetrical sleep spindles, vertex sharp waves, and diffuse delta slowing. Abnormal Interictal Activity None Clinical Events None Provocative Maneuvers Hyperventilation was not performed. Photic stimulation was not performed. INTERPRETATION AND CLINICAL CORRELATION This EEG is abnormal due to frequent rig ht frontal and independent occasional left temporal slo wing suggestive of underlying cerebral dysfunction of non s pecific etiology including known underlying structural le sarah on the right. Abdifatah Green MD Clinical Neurophysiology Fellow - PGY-5 Personal Pager: [phone] 03/25/21 Chanel Zuleta MD NEUROLOGY ORDERABLES ECHOCARDIOGRAM COMPLETE (03/25/2021 3:39 PM EDT) P athologist Signature EF 52 [facility] Specimen (Source) Anatomical Location Collection Method / Collectio n Time Received Time / Laterality Volume 03/25/2021 Narrative [facility] - 03/25/2021 4:00 PM EDT Procedure: ?Transthoracic Echocardiogram Patient: ?PAMELA Louis ? (Age): 1955(66y) Med Rec#: ? [id number] ?Sex: ?M ? Site Loc: ? [facility] [place]Ht / Wt: ??175(cm)/80(kg) Pt. Loc: ?Adult Floor ? BSA: ?1.96 Study Date: ?? 03/25/2021 ?Pt. Type: Inpatient Tape: ? Referring: TIM JORDAN J Reading: Robert Guerra ([id number]) Veneer Department Manager: Jose Flores, [facility] Veneer Department Manager 2: Latoya Hernandez Diagnosis: *Unspecified atrial fibrillation (I48.9 1) BP: ? 140/98 SUMMARY: 1. The left ventricular chamber size is normal. Basal septal hypertrophy is observed. There is no evidence of LVO T obstruction. The ??basal inferior, and ??basal inferoseptal wall segments are hypokinetic (score 2). There is normal global left ventricu lar systolic function. The quantitative left ventricular ejection f raction by biplane Walker's method is 52%. 2. The right ventricle is mildly dilated . There is mild right ventricular hypertrophy observed. ??Righ t ventricular global systolic function is normal. 3. The left atrium is severely dilated. The right atrium is moderately dilated. 4. A porcine bio-prosthetic aortic valve is present. The peak instantaneous trans-valvular gradient ac ross ??the aortic valve is 44 mmHg. Obtained from the right sternal fallon rder with the non-imaging CW probe. ??The mean trans-valvular gradien t across ??the aortic valve is 22 mmHg. DOI 0.25. Mild (1+/4+) aortic valv e prosthesis regurgitation is present. 5. A bio-prosthetic mitral valve is pres ent. The bio-prosthetic mitral valve appears to be functioning normally . The mean gradient across the mitral valve is 6 mmHg. at 60 BPM. There is a trace amount of mitral prosthesis regurgitation. 6. There is mild dilatation of the aorti c root (3.9 cm). There is moderate dilatation of the ascending aor ta (4.5 cm). 7. The estimated pulmonary artery systol ic pressure is 27 mmHg. 8. See remainder of report for additiona l findings. Findings ? : Study Quality: ? Technically limited Left Ventricle: ? The left ventricul ar chamber size is normal. ?Basal septal hypertrophy is observ ed. ?There is no evidence of LVOT obstr uction. ?No ventricular septal defect is vi sualized. ?There is normal global left ventri cular systolic function. ?The quantitative left ventricular ejection fraction by biplane Walker's method is 52%. ?There are no left ventricular segm ental wall motion abnormalities. ?Post-cardiotomy septal wall motion is present. ?Left ventricular diastolic functio n is abnormal. ?Doppler assessment is consistent w ith elevated left sided filling pressure. ?The ??basal inferior, and ??basal inferoseptal wall segments are hypokinetic (score 2). ?Overall wallmotion score index is ??1.13 Left Atrium: ? The left atrium is se verely dilated.102 ml/m2 Right Ventricle: ? The right ventric le is mildly dilated. ?There is mild right ventricular hy pertrophy observed. ?Right ventricular global systolic function is normal. ?The estimated pulmonary artery sys tolic pressure is 27 mmHg. ?The estimated right atrial pressur e is 8 mmHg. Right Atrium: ? The right atrium is moderately dilated. Aortic Valve: ? The peak instantaneo us trans-valvular gradient across the aortic valve is 44 mmHg.Obtained fro m the right sternal border with the non-imaging CW probe. ?The mean trans-valvular gradient a cross ??the aortic valve is 22 mmHg.DOI 0.25 ?The size of the prosthetic aortic valve is 24mm. ?The prosthetic aortic valve was im planted on 01/19/2014. ?A porcine bio-prosthetic aortic va lve is present. ?Mild (1+/4+) aortic valve prosthes is regurgitation is present. Mitral Valve: ? The mean gradient ac ross the mitral valve is 6 mmHg.at 60 BPM. ?The size of the prosthetic mitral valve is 32mm. ?The prosthetic mitral valve was im planted on 01/19/2014. ?A bio-prosthetic mitral valve is p resent. ?The bio-prosthetic mitral valve le aflets are normal. ?The bio-prosthetic mitral valve ap pears to be functioning normally. ?There is a trace amount of mitral prosthesis regurgitation. Tricuspid Valve: ? The tricuspid michael ve leaflets are mildly thickened. ?There is trace tricuspid regurgita tion present. Pulmonic Valve: ? The pulmonic valve appears normal in structure and function. ?There is trace pulmonic regurgitat ion present. Pericardium: ? The pericardium appea rs normal and there is no evidence of a pericardial effusion. Aorta: ? There is mild dilatation of the aortic root.3.9 cm ?There is moderate dilatation of th e ascending aorta.4.5 cm Pulmonary Artery: ? The main pulmona ry artery appears normal. Venous: ? The inferior vena cava jody ears normal in size. ?There is less than 50% respiratory change in the inferior vena cava dimension consistent with elevated right atrial pressure. Misc: ? Two-dimensional echo, spectr al Doppler and color Doppler performed. Chambers 2D ?Value ?Units (Range) ? IVSd (2D) ? 1.36 ? cm ? LVPWd (2D) ?1.02 ? cm ? IVS:LVPW ratio (2D) 1.33 ? ratio ? RWT (2D) ?0.46 ? ratio ? RWT PW (2D) ? 0.39 ? ratio ? LVIDd (2D) ?5.23 ? cm ? LVIDs (2D) ?3.91 ? cm ? LVIDd (2D) index ?2.67 ? cm/m2 ? LVIDs (2D) index ?2 ?cm/m2 ? LV FS (2D) ?25.24 ?% ? EF Teichholz (2D) ?? 49.47 ?% ? Ao root diameter (2D3.9 ?cm (2.1 - 3.6) ? Ascending Ao ?4.5 ?cm (2 - 3.5) ? Volumes/Mass ?Value ?Units (Range) ? LA Area 4 CH ?39 ? cm2 (<21) ? RA AREA 4CH ? 26 ? cm2 ? LA ESV BP (MOD) elqr411.25 ? m l/m2 ? LV ESV SP 4CH (MOD) 104 ?ml ? LV ESV SP 2CH (MOD) 42 ? ml ? LV EDV BP ? 146 ?ml ? LV ESV BP ? 70 ? ml ? LV EDV BP index ? 74.64 ?ml/m2 ? LV ESV BP index ? 35.79 ?ml/m2 ? BP EF (MOD) ? 52.05 ?% ? LV mass (2D) ?248.25 ? g ? LV mass (2D) index ??126.91 ? g/m2 ? Diastolic/Systolic Function ?Value ?Units (Range) ? MV E-wave Vmax ?1.25 ? m/sec ? LV septal e' Vmax ?? 0.03 ? m/sec ? LV lateral e' Vmax ??0.05 ? m/sec ? LV average e' Vmax ??0.04 ? m/sec ? LV E:e' septal ratio39.68 ? ratio ? LV E:e' lateral rati26.54 ? ratio ? LV average E:e' rati31.81 ? ratio ? Aortic Valve ?Value ?Units (Range) ? AV Vmax ? 3.33 ? m/sec ? AV VTI ?59.1 ? cm ? AV peak gradient ?44 ? mmHg ? AV mean gradient ?22 ? mmHg ? LVOT diameter ? 2.1 ?cm ? LVOT Vmax ? 0.84 ? m/sec ? LVOT VTI ?14.7 ? cm ? LVOT peak gradient ??3 ?mmHg ? LVOT mean gradient ??2 ?mmHg ? DOI (VTI) ? 0.25 ? ratio ? DOI (Vmax) ?0.25 ? ratio ? SV LVOT ? 50.89 ?ml ? AMAURY (continuity Vmax0.87 ? cm2 ? AMAURY (continuity Vmax0.45 ? cm2/m2 ? AMAURY (continuity VTI)0.86 ? cm ? AMAURY (continuity VTI)0.44 ? cm2/m2 ? Mitral Valve ?Value ?Units (Range) ? MV Vmax ? 1.68 ? m/sec ? MV VTI ?38.7 ? cm ? MV peak gradient ?11.29 ?mmHg ? MV mean gradient ?6 ?mmHg ? MVA (continuity VTI)1.31 ? cm2 ? Tricuspid Valve ?Value ?Units (Range) ? TR Vmax ? 2.2 ?m/sec ? TR peak gradient ?19.36 ?mmHg ? RAP ? 8 ?mmHg ? RVSP ?27 ? mmHg ? Wall Motion: Segment Name ?Rest ? Base-Anteroseptal ?? Normal ? Base-Anterior ? Normal ? Base-Anterolateral ??Normal ? Base-Posterolateral Normal ? Base-Inferior ? Hypokinetic ? Base-Inferoseptal ?? Hypokinetic ? Mid-Anteroseptal ?Normal ? Mid-Anterior ?Normal ? Mid-Anterolateral ?? Normal ? Mid-Posterolateral ??Normal ? Mid-Inferior ?Normal ? Mid-Inferoseptal ?Normal ? [place]-Septal ? Normal ? [place]-Anterior ? Normal ? [place]-Lateral ?Normal ? [place]-Inferior ? Normal ? [place]-Tip ?Normal ? This report has been electronically sign ed by: _ Robert Guerra MD ? 03/25/2021 16 :00:24 Images reviewed and interpretation verif ied [facility] Cardiac Ultrasound Laboratory Procedure Note Robert Guerra MD - 03/25/2021Formatt ing of this note might be different from the original. Procedure: Transthoracic Echocardiogram Patient: PAMELA HUTTON(Age): [birth year]66y) Med Rec#: [id number] Sex: M [place] Loc[place] [facility] [place] / Wt: 175(cm)/80(kg) Pt. Loc: Adult Floor BSA: 1.96 Study Date: 03/25/2021 Pt. Type: Inpatie nt Tape: Referring: TIM JORDAN J Reading: Robert Guerra ([id number]) Veneer Department Manager: [facility] Veneer Department Manager 2: Latoya Hernandez Diagnosis: *Unspecified atrial fibrillation (I48.9 1) BP: 140/98 SUMMARY: 1. The left ventricular chamber size is normal. Basal septal hypertrophy is observed. There is no evidence of LVO T obstruction. The basal inferior, and basal inferoseptal wall se gments are hypokinetic (score 2). There is normal global left ventricu lar systolic function. The quantitative left ventricular ejection f raction by biplane Walker's method is 52%. 2. The right ventricle is mildly dilated . There is mild right ventricular hypertrophy observed. Right ventricular global systolic function is normal. 3. The left atrium is severely dilated. The right atrium is moderately dilated. 4. A porcine bio-prosthetic aortic valve is present. The peak instantaneous trans-valvular gradient ac ross the aortic valve is 44 mmHg. Obtained from the right sternal fallon rder with the non-imaging CW probe. The mean trans-valvular gradient across the aortic valve is 22 mmHg. DOI 0.25. Mild (1+/4+) aortic valv e prosthesis regurgitation is present. 5. A bio-prosthetic mitral valve is pres ent. The bio-prosthetic mitral valve appears to be functioning normally . The mean gradient across the mitral valve is 6 mmHg. at 60 BPM. There is a trace amount of mitral prosthesis regurgitation. 6. There is mild dilatation of the aorti c root (3.9 cm). There is moderate dilatation of the ascending aor ta (4.5 cm). 7. The estimated pulmonary artery systol ic pressure is 27 mmHg. 8. See remainder of report for additiona l findings. Findings : Study Quality: Technically limited Left Ventricle: The left ventricular aakash mber size is normal. Basal septal hypertrophy is observed. There is no evidence of LVOT obstructio n. No ventricular septal defect is visuali zed. There is normal global left ventricular systolic function. The quantitative left ventricular eject ion fraction by biplane Walker's method is 52%. There are no left ventricular segmental wall motion abnormalities. Post-cardiotomy septal wall motion is p resent. Left ventricular diastolic function is abnormal. Doppler assessment is consistent with e levated left sided filling pressure. The basal inferior, and basal inferosep marcy wall segments are hypokinetic (score 2). Overall wallmotion score index is 1.13 Left Atrium: The left atrium is severely dilated.102 ml/m2 Right Ventricle: The right ventricle is mildly dilated. There is mild right ventricular hypertr ophy observed. Right ventricular global systolic funct ion is normal. The estimated pulmonary artery systolic pressure is 27 mmHg. The estimated right atrial pressure is 8 mmHg. Right Atrium: The right atrium is modera tely dilated. Aortic Valve: The peak instantaneous tra ns-valvular gradient across the aortic valve is 44 mmHg.Obtained fro m the right sternal border with the non-imaging CW probe. The mean trans-valvular gradient across the aortic valve is 22 mmHg.DOI 0.25 The size of the prosthetic aortic valve is 24mm. The prosthetic aortic valve was implant ed on 01/19/2014. A porcine bio-prosthetic aortic valve i s present. Mild (1+/4+) aortic valve prosthesis re gurgitation is present. Mitral Valve: The mean gradient across t he mitral valve is 6 mmHg.at 60 BPM. The size of the prosthetic mitral valve is 32mm. The prosthetic mitral valve was implant ed on 01/19/2014. A bio-prosthetic mitral valve is presen t. The bio-prosthetic mitral valve leaflet s are normal. The bio-prosthetic mitral valve appears to be functioning normally. There is a trace amount of mitral prost hesis regurgitation. Tricuspid Valve: The tricuspid valve oscar flets are mildly thickened. There is trace tricuspid regurgitation present. Pulmonic Valve: The pulmonic valve appea rs normal in structure and function. There is trace pulmonic regurgitation p resent. Pericardium: The pericardium appears nor mal and there is no evidence of a pericardial effusion. Aorta: There is mild dilatation of the a ortic root.3.9 cm There is moderate dilatation of the asc ending aorta.4.5 cm Pulmonary Artery: The main pulmonary art santos appears normal. Venous: The inferior vena cava appears n ormal in size. There is less than 50% respiratory andersen ge in the inferior vena cava dimension consistent with elevated right atrial pressure. Misc: Two-dimensional echo, spectral Dop pler and color Doppler performed. Chambers 2D Value Units (Range) IVSd (2D) 1.36 cm LVPWd (2D) 1.02 cm IVS:LVPW ratio (2D) 1.33 ratio RWT (2D) 0.46 ratio RWT PW (2D) 0.39 ratio LVIDd (2D) 5.23 cm LVIDs (2D) 3.91 cm LVIDd (2D) index 2.67 cm/m2 LVIDs (2D) index 2 cm/m2 LV FS (2D) 25.24 % EF Teichholz (2D) 49.47 % Ao root diameter (2D3.9 cm (2.1 - 3.6) Ascending Ao 4.5 cm (2 - 3.5) Volumes/Mass Value Units (Range) LA Area 4 CH 39 cm2 (<21) RA AREA 4CH 26 cm2 LA ESV BP (MOD) lcnb999.25 ml/m2 LV ESV SP 4CH (MOD) 104 ml LV ESV SP 2CH (MOD) 42 ml LV EDV BP 146 ml LV ESV BP 70 ml LV EDV BP index 74.64 ml/m2 LV ESV BP index 35.79 ml/m2 BP EF (MOD) 52.05 % LV mass (2D) 248.25 g LV mass (2D) index 126.91 g/m2 Diastolic/Systolic Function Value Units (Range) MV E-wave Vmax 1.25 m/sec LV septal e' Vmax 0.03 m/sec LV lateral e' Vmax 0.05 m/sec LV average e' Vmax 0.04 m/sec LV E:e' septal ratio39.68 ratio LV E:e' lateral rati26.54 ratio LV average E:e' rati31.81 ratio Aortic Valve Value Units (Range) AV Vmax 3.33 m/sec AV VTI 59.1 cm AV peak gradient 44 mmHg AV mean gradient 22 mmHg LVOT diameter 2.1 cm LVOT Vmax 0.84 m/sec LVOT VTI 14.7 cm LVOT peak gradient 3 mmHg LVOT mean gradient 2 mmHg DOI (VTI) 0.25 ratio DOI (Vmax) 0.25 ratio SV LVOT 50.89 ml AMAURY (continuity Vmax0.87 cm2 AMAURY (continuity Vmax0.45 cm2/m2 AMAURY (continuity VTI)0.86 cm AMAURY (continuity VTI)0.44 cm2/m2 Mitral Valve Value Units (Range) MV Vmax 1.68 m/sec MV VTI 38.7 cm MV peak gradient 11.29 mmHg MV mean gradient 6 mmHg MVA (continuity VTI)1.31 cm2 Tricuspid Valve Value Units (Range) TR Vmax 2.2 m/sec TR peak gradient 19.36 mmHg RAP 8 mmHg RVSP 27 mmHg Wall Motion: Segment Name Rest Base-Anteroseptal Normal Base-Anterior Normal Base-Anterolateral Normal Base-Posterolateral Normal Base-Inferior Hypokinetic Base-Inferoseptal Hypokinetic Mid-Anteroseptal Normal Mid-Anterior Normal Mid-Anterolateral Normal Mid-Posterolateral Normal Mid-Inferior Normal Mid-Inferoseptal Normal [place]-Septal Normal [place]-Anterior Normal [place]-Lateral Normal [place]-Inferior Normal [place]-Tip Normal This report has been electronically sign ed by: _ Robert Guerra MD 03/25/2021 16:00:24 [facility] Taryn Niño COLLECTIONS ASSOCIATE ECHO ORDERABLES Performing Organization Address City/State/ZIP Code Phon e Number [facility] Green Tube HOLD (03/25/2021 1:11 AM EDT) P athologist Signature Green Hold Sample in [facility] LABORATORY Specimen Anatomical Collection Method Collection Time Receive d Time (Source) Location / / Volume Laterality Blood specimen Venous Draw / 03/25/2021 1:11 AM 2020 1:29 (specimen) Unknown EDT AM EDT Taryn Niño COLLECTIONS ASSOCIATE CHEMISTRY ORDERABLES Performing Organization Address City/[facility]/ZIP Code [place] [address] Green Tube HOLD (03/25/2021 1:11 AM EDT) P athologist Signature Green Hold Sample in [facility] Specimen Anatomical Collection Method Collection Time Receive d Time (Source) Location / / Volume Laterality Blood specimen Venous Draw / 03/25/2021 1:11 AM 2020 1:29 (specimen) Unknown EDT AM EDT Taryn Niño COLLECTIONS ASSOCIATE CHEMISTRY ORDERABLES Performing Organization Address City/[facility]/ZIP Code [place] [address] (ABNORMAL) BMP w/fasting Glucose (03/25/2021 1:11 AM EDT) P athologist Signature Glucose 100 (H) 65 - 99 [facility] Fasting mg/dL [facility] LABORATORY Comment: ?Fasting* Glucose Interpretive C riteria Normal ?65-99 mg/dL Impaired Fasting glucose ?100-125 mg/dL Consistent with Diabetes Mellitus ? >or= 126 mg/dL *Fasting is defined as no caloric intake for at least 8 hours In the absence of unequivocal hypergly cemia a plasma glucose value of >or= 126 mg/dL should be repeated on a subseq uent day. Diagnosis and Classification of Diabetes Mellitus, Position Statement from the [place] [employer]. ??Diabete s Care, Volume 33, Supplement 1, Nov 2009 BUN 33 (H) 10 - 20 mg/dL [facility] LABORAT[facility] Creatinine 1.57 (H) 0.80 - 1.50 mg/dL [facility] LAB[facility] Sodium 139 135 - 145 mmol/L [facility] Potassium 4.2 3.5 - 5.0 mmol/L [facility] Comment: Please note: ??Patients with WBC >100,00 0 may have falsely elevated Potassium levels. ??For accurate Potassium quantif ication in these patients send serum separator tube (gold top) for subsequent determinations. ??Contact the Clinical Chemistry Laboratory if there are any qu estions. Chloride 104 98 - 107 mmol/L [facility] LABORATORY CO2 19 (L) 22 - 31 mmol/L [facility] Anion Gap 16 (H) 5 - 15 mmol/L [facility] Calcium 9.1 8.5 - 10.5 mg/dL [facility] Estimated GFR 45 (L) >=60 mL/min/1.73 m?? [facility] Comment: This patient? s estimated glomerular filtration rate (eGFR) is between 45 mL/min/1.73 m2 (patients with less muscl e mass per kg body weight) and 52 mL/min/1.73 m2 (patients with more muscl e [...] (Source) Location / / Volume Laterality Blood specimen 03/25/2021 1:11 AM 021 1:29 (specimen) EDT AM EDT Resulting Agency Comment Spec In Lab Taryn Niño APRN CHEMISTRY ORDERABLES Performing Organization Address City/State/ZIP [place] [address] (ABNORMAL) Differential, Automated (03/25/2021 1:11 AM EDT) [facility] Method Time Signature Neutrophils % 79.7 % [facility] LABORAT[facility] Neutr Abs (ANC) 4.62 1.70 - [facility] 6.10 [facility] x10(3)/[facility] LABORATORY Lymphocytes % 10.0 % [facility] LABORATORY Lymphocytes Abs 0.6 (L) 0.9 - 3.2 [facility] x10(3)/[facility] LABORATORY Monocytes % 8.6 % [facility]OR[facility]ORY Monocyte Abs 0.5 0.3 - 0.9 [facility] x10(3)/[facility] LABORATORY Eosinophils % 0.5 % [facility] LABORATORY Eosinophils Abs 0.0 0.0 - 0.4 [facility] x10(3)/[facility] LABORATORY Basophils % 0.9 % [facility] LABORATORY Basophils Abs 0.0 0.0 - 0.1 [facility] x10(3)/[facility] LABORATORY Immature Gran % 0.30 % [facility] Comment: Immature granulocytes(IG's)percentage an d absolute count will include metamyelocytes, myelocytes, and promyelo cytes. Blood smears from CBCs yielding IG's will be scanned manually for concor dance. If this scan disagrees with the automated IG or if promyelocytes are not ed, a manual differential will be performed. Cassie Gran Abs 0.02 0.00 - 0.04 x10(3)/[facility] LABORATORY Specimen Anatomical Collection Method Collection Time Receive d Time (Source) Location / / Volume Laterality Blood specimen 03/25/2021 1:11 AM 021 1:28 (specimen) EDT AM EDT Resulting Agency Comment Spec In Lab Taryn Niño APRN HEMATOLOGY ORDERABLES Performing Organization Address City/State/ZIP [place] [address] (ABNORMAL) Hemogram (03/25/2021 1:11 AM EDT) Analysis Performed At Patho logist Time Signature WBC 5.8 4.0 - 9.5 [facility] LABORATORY RBC 4.82 4.58 - [facility] 5.54 [facility] x10(6)/[facility] LABORATORY Hemoglobin 15.2 13.7 - [facility] 16.[facility] gm/dL [facility] LABORATORY Hematocrit 44.8 40.5 - [facility] 48.5 % [facility] MCV 92.9 82.9 - [facility] 93.1 [facility] LABORATORY MCH 31.5 27.5 - [facility] 32.1 pg [facility] LABORATORY MCHC 33.9 32.0 - [facility] 35.7 gm/dL [facility] LABOR[facility]ORY Platelets 210 145 - 357 [facility] x10(3)/[facility] LABORATORY RDWSD 47.7 (H) 36.0 - [facility] 45.0 [facility] LABORATORY RDWCV 13.9 (H) 11.4 - [facility] 13.8 % [facility] LABORATORY MPV 9.8 7.6 - 12.9 [facility] LABORATORY nRBC % Auto 0.0 % [facility] LABORATORY nRBC Abs Auto 0.000 0.000 - [facility] 0.000 [facility] x10(3)/[facility] LABORATORY Specimen Anatomical Collection Method Collection Time Receive d Time (Source) Location / / Volume Laterality Blood specimen 03/25/2021 1:11 AM 021 1:28 (specimen) EDT AM EDT Resulting Agency Comment Spec In Lab Taryn Niño APRN HEMATOLOGY ORDERABLES Performing Organization Address City/State/ZIP [place] [address] Hepatic Function Panel (03/25/2021 1:11 AM EDT) P athologist Signature Total Protein 7.5 6.1 - 8.0 [facility] gm/dL [facility] LAB[facility] Albumin 4.2 3.2 - 5.2 [facility] gm/dL [facility] AST 17 0 - 39 [facility] unit/L [facility] ALT 12 0 - 55 [facility] unit/L [facility] LAB[facility] Alk Phos 43 40 - 130 [facility] unit/L [facility] Total 0.6 0.2 - 1.3 [facility] Bilirubin mg/dL [facility] LABOR[facility] Bili, Direct 0.2 0.0 - 0.3 [facility] mg/dL [facility] LABORATORY Specimen Anatomical Collection Method Collection Time Receive d Time (Source) Location / / Volume Laterality Blood specimen 03/25/2021 1:11 AM 021 1:29 (specimen) EDT AM EDT Resulting Agency Comment Spec In Lab Taryn Robisont COLLECTIONS ASSOCIATE CHEMISTRY ORDERABLES Performing Organization Address City/[facility]/ZIP [facility] Phon e Number [address] Phosphorus (03/25/2021 1:11 AM EDT) P athologist Signature Phosphorus 3.3 2.5 - 4.5 [facility] mg/dL [facility] LABORATORY Specimen Anatomical Collection Method Collection Time Receive d Time (Source) Location / / Volume Laterality Blood specimen 03/25/2021 1:11 AM 021 1:29 (specimen) EDT AM EDT Resulting Agency Comment Spec In Lab Taryn Mendoza [place] COLLECTIONS ASSOCIATE CHEMISTRY ORDERABLES Performing Organization Address City/[facility]/ZIP Code Phon e Number [address] Magnesium (03/25/2021 1:11 AM EDT) P athologist Signature Magnesium 0.93 0.69 - 1.07 [facility] mmol/L [facility] LABORATORY Specimen Anatomical Collection Method Collection Time Receive d Time (Source) Location / / Volume Laterality Blood specimen 03/25/2021 1:11 AM 021 1:29 (specimen) EDT AM EDT Resulting Agency Comment Spec In Lab Taryn Reji [place] COLLECTIONS ASSOCIATE CHEMISTRY ORDERABLES Performing Organization Address City/State/ZIP Code [place] [address] Calcium (03/25/2021 1:11 AM EDT) athologist Signature Calcium 9.1 8.5 - 10.5 [facility] LABOR[facility]ORY Specimen Anatomical Collection Method Collection Time Receive d Time (Source) Location / / Volume Laterality Blood specimen 03/25/2021 1:11 AM 021 1:29 (specimen) EDT AM EDT Resulting Agency Comment Spec In Lab Taryn Niño COLLECTIONS ASSOCIATE CHEMISTRY ORDERABLES Performing Organization Address City/State/ZIP Code Phon e Number [address] Triglyceride (03/25/2021 1:11 AM EDT) athologist Signature Triglycerides 56 mg/dL [facility] LABORATORY Comment: Average Risk/Lower Risk: <150 mg/dL Borderline High Risk: 150-199 mg/dL High Risk: 200-499 mg/dL Very High Risk: >rc=772 mg/dL Specimen Anatomical Collection Method Collection Time Receive d Time (Source) Location / / Volume Laterality Blood specimen 03/25/2021 1:11 AM 021 1:29 (specimen) EDT AM EDT Resulting Agency Comment Spec In Lab Taryn Niño COLLECTIONS ASSOCIATE CHEMISTRY ORDERABLES Performing Organization Address City/State/ZIP Code [place] [address] HDL/Cholesterol Profile (03/25/2021 1:11 AM EDT) athologist Signature Chol, Total 177 mg/dL [facility] Comment: Lower Risk: <200 mg/dL Average Risk: 200-239 mg/dL Higher Risk: >al=915 mg/dL HDL 73 mg/dL [facility] LABORATORY Comment: Males: ?? Higher Risk: <40 mg/dL Females: ?? Higher Risk: <50 mg/dL Chol/HDL Ratio 2.4 ratio [facility] LAB[facility]ORY Chol/HDL Interpretation See Note [facility] Comment: Lipid management should be guided by a p atient? s ASCVD risk, goals and preferences. ACC/AHA Guidelines recommend high intens ity statin if clinical ASCVD or LDL greater than or equal to 190 mg/dL. [email or web address] Measure LDL if Total Cholesterol minus H DL Cholesterol is greater than 220 mg/dL. Adults aged 40-75 with LDL 70-189 mg/dL should have their 10 year ASCVD risk estimated with the ACC/AHA ASCVD risk es timator http://tools.acc.org/NCIOF-Xofc-Sgxmiyam r/ Statin should be discussed if risk great er than or equal to 7.5% in non-diabetics. With diabetes, moderate i ntensity statin is recommended if risk less than 7.5%, high intensity if risk g reater than or equal to 7.5%. Annual lipid monitoring on statins is no t necessary. Lifestyle modification is a critical com ponent of ASCVD risk reduction. Specimen Anatomical Collection Method Collection Time Receive d Time (Source) Location / / Volume Laterality Blood specimen 03/25/2021 1:11 AM 021 1:29 (specimen) EDT AM EDT Resulting Agency Comment Spec In Lab Taryn Niño APRN CHEMISTRY ORDERABLES Performing Organization Address City/State/ZIP Code Phon e Number [place] [id number] LDL Cholesterol, Direct (03/25/2021 1:11 AM EDT) P athologist Signature LDL Chol 102 mg/dL [facility] Comment: Lowest Risk: <100 mg/dL Lower Risk: 100-129 mg/dL Borderline High Risk: 130-159 mg/dL High Risk: 160-189 mg/dL Very High Risk: >uy=138 mg/dL Specimen Anatomical Collection Method Collection Time Receive d Time (Source) Location / / Volume Laterality Blood specimen 03/25/2021 1:11 AM 021 1:29 (specimen) EDT AM EDT Resulting Agency Comment Spec In Lab Taryn Niño APRN CHEMISTRY ORDERABLES Performing Organization Address City/State/[place] [address] Hemoglobin A1c (03/25/2021 1:11 AM EDT) athologist Signature Hemoglobin A1C 5.2 4.3 - 5.6 [facility] Comment: Reference Range: 4.3 - 5.6% 5.7 - 6.4% - Increased Risk of Developin g Diabetes Mellitus >= 6.5% - Consistent with diagnosis of D iabetes Mellitus In the absence of hyperglycemia (i.e. pl asma glucose > 200 mg/dL) or classic symptoms of hyperglycemia a repeat measu rement of HbA1c should be performed on a separate sample to confirm the diagnos is. Diagnosis and Classification of Diabetes Mellitus, Diabetes Care 2013; 36: Suppl. 1, S67-51 Est Avg Gluc 104 mg/dL [facility] Comment: eAG equivalents for HbA1c percentages: HbA1c(%) ?eAG(mg/dL) 6.0 ?126 6.5 ?140 7.0 ?154 7.5 ?169 8.0 ?183 8.5 ?197 9.0 ?212 9.5 ?226 10.0 ? 240 Limitations: The eAG calculation has not been validated on women, individuals below 18 years old and above 70 years old, and individuals with hemoglobinopathies. Additional resources are available on [facility] ADA website. Leon TRIVEDI, Dalton J, Argelia R, et al. ??Tr anslating the A1C assay into estimated average glucose values. ??Diabetes Care 2008:31(8):0539-9161. Specimen Anatomical Collection Method Collection Time Receive d Time (Source) Location / / Volume Laterality Blood specimen 03/25/2021 1:11 AM 021 1:29 (specimen) EDT AM EDT Resulting Agency Comment Spec In Lab Taryn Niño COLLECTIONS ASSOCIATE CHEMISTRY ORDERABLES Performing Organization Address City/State/Z[place] [address] MRI Brain wo Contrast (03/24/2021 9:25 PM EDT) Anatomical Region Laterality Modality Head Magnetic Resonance Specimen (Source) Anatomical Location Collection Method / Collectio n Time Received Time / Laterality Volume Impressions 03/24/2021 10:15 PM EDT 1. ??No acute infarction, mass or mass effect. 2. ??Encephalomalacia within the superio r right frontal lobe and posterior occipital lobe consistent with sequela o f remote prior infarct. 3. ??Small foci of susceptibility relate d signal loss at the tirado matter white matter boundary within both cerebral hem ispheres. Differential includes small microhemorrhages from chronic small vess el ischemic disease or possibly cerebral amyloid angiopathy. Preliminary report signed by: Robbin joshi at 03/24/2021 9:36 PM I have personally reviewed the image(s) and the resident's interpretation and agree with the findings, Ravi hoffmann MD at 03/24/2021 10:15 PM Thank you for letting us participate in the care of this patient. ??If you are a health care provider and have any questi ons regarding this report, please contact the number below. ??For patients who have questions please contact the health rn critical care that requested your imaging first. ? Narrative 03/24/2021 10:15 PM EDT EXAMINATION: MRI BRAIN WO CONTRAST CLINICAL HISTORY: Altered mental status r/o acute mulitofcal stroke vs other viridiana ology for encephalopathy TECHNIQUE: MRI of the brain performed without intra venous contrast administration. COMPARISON: CT head 03/24/2021 FINDINGS: EEG leads are present. Susceptibility re lated signal artifact produces distortion along the posterior right vandana varium which limits evaluation of this region on some sequences. No ventriculomegaly. The ventricles and subarachnoid spaces are prominent consistent with age-related changes. Bas al cisterns are patent. No mass or mass effect. No abnormal restricted diffusion. No humphrey dence of acute cortical infarction. There is encephalomalacia within the sup erior right frontal lobe with surrounding gliosis consistent with sequ luisa of remote prior infarct. Additional area of encephalomalacia involving the r ight occipital lobe consistent with sequela of prior infarct. There are small foci of T2 prolongation in the periventricular and subcortical white matter of both cerebral hemisphere s, nonspecific finding most commonly seen in the context of chronic small ves rudy ischemic disease. There are multiple small foci of susceptibility related sig nal loss predominantly located at the tirado matter white matter boundary of bot h cerebral hemispheres and also within the inferior cerebellum, most consistent with sequela of chronic small vessel ischemic disease/microhemorrhage. The orbits are unremarkable. No abnormal signal in the paranasal sinuses or mastoid air cells. Normal intracranial i ntravascular flow voids. Normal marrow space signal and. Procedure Note Ravi Guzman MD - 03/24/2021Fo rmatting of this note might be different from the original. EXAMINATION: MRI BRAIN WO CONTRAST CLINICAL HISTORY: Altered mental status r/o acute mulitofcal stroke vs other viridiana ology for encephalopathy TECHNIQUE: MRI of the brain performed without intra venous contrast administration. COMPARISON: CT head 03/24/2021 FINDINGS: EEG leads are present. Susceptibility re lated signal artifact produces distortion along the posterior right vandana varium which limits evaluation of this region on some sequences. No ventriculomegaly. The ventricles and subarachnoid spaces are prominent consistent with age-related changes. Bas al cisterns are patent. No mass or mass effect. No abnormal restricted diffusion. No humphrey dence of acute cortical infarction. There is encephalomalacia within the sup erior right frontal lobe with surrounding gliosis consistent with sequ luisa of remote prior infarct. Additional area of encephalomalacia involving the r ight occipital lobe consistent with sequela of prior infarct. There are small foci of T2 prolongation in the periventricular and subcortical white matter of both cerebral hemisphere s, nonspecific finding most commonly seen in the context of chronic small ves rudy ischemic disease. There are multiple small foci of susceptibility related sig nal loss predominantly located at the tirado matter white matter boundary of bot h cerebral hemispheres and also within the inferior cerebellum, most consistent with sequela of chronic small vessel ischemic disease/microhemorrhage. The orbits are unremarkable. No abnormal signal in the paranasal sinuses or mastoid air cells. Normal intracranial i ntravascular flow voids. Normal marrow space signal and. IMPRESSION 1. No acute infarction, mass or mass eff ect. 2. Encephalomalacia within the superior right frontal lobe and posterior occipital lobe consistent with sequela o f remote prior infarct. 3. Small foci of susceptibility related signal loss at the tirado matter white matter boundary within both cerebral hem ispheres. Differential includes small microhemorrhages from chronic small vess el ischemic disease or possibly cerebral amyloid angiopathy. Preliminary report signed by: Robbin joshi at 03/24/2021 9:36 PM I have personally reviewed the image(s) and the resident's interpretation and agree with the findings, Ravi hoffmann MD at 03/24/2021 10:15 PM Thank you for letting us participate in the care of this patient. If you are a health care provider and have any questi ons regarding this report, please contact the number below. For patients w ho have questions please contact the health rn critical care that requested your imaging first. Taryn Niño COLLECTIONS ASSOCIATE IMG MRI ORDERABLES Urinalysis with reflex Culture (03/24/2021 8:45 PM EDT) [facility] Method Time Signature Glucose UA Negative Negative [facility] mg/dL [facility] Protein UA Negative Negative [facility] mg/dL [facility] Bilirubin UA Negative Negative [facility] mg/dL [facility] Comment: Clinical correlation required for positi ve Urine Bilirubin results as false positive may occur with some drugs and d rug related products. If a false positive is suspected a serum total bili haro should be considered if clinically indicated. Urobilinogen UA Normal Normal mg/dL [facility] pH UA 6.0 5.0 - 8.0 [facility] Blood UA Negative Negative mg/dL [facility] Ketones UA Negative Negative mg/dL [facility] Nitrite UA Negative Negative [facility] Leukocytes UA Negative Negative [facility] Appearance UA Clear Clear [facility] Spec [place] UA 1.024 1.006 - 1.030 [facility] Color UA Yellow Yellow [facility] Culture Reflexed No [facility] Specimen (Source) Anatomical Collection Method Collection Time Re ceived Time Location / / Volume Laterality Urine specimen 03/24/2021 8:45 03/24/2021 8:52 obtained by clean PM EDT PM EDT catch procedure (specimen) Resulting Agency Comment Spec In Lab Taryn Niño APRN URINE ORDERABLES Performing Organization Address City/State/Z[place] [address] EKG 12 Lead (03/24/2021 4:58 PM EDT) Component Value Ref Range Test Analysis Performed Pathologis t Method Time At Signature Ventricular rate 85 BPM MUSE SYSTEM Atrial Rate 85 BPM MUSE SYSTEM P-R Interval 172 ms MUSE SYSTEM QRS Duration 166 ms MUSE SYSTEM Q-T Interval 442 ms MUSE SYSTEM QTC Calculated 525 ms MUSE SYSTEM (Bezet) Calculated R [place] -54 degrees MUSE SYSTEM Calculated T [place] 52 degrees MUSE SYSTEM INTERPRETATION Sinus rhythm with frequent Premature ventricular compl exes MUSE SYSTEM Left bundle branch block Abnormal ECG When compared with ECG of 24-MAR-2021 11:19, No significant change was found Confirmed by MD MARIO, CRYSTAL ([id number]) on 03/30/2021 3:09:57 PM Specimen Anatomical Collection Method Collection Time Receive d Time (Source) Location / / Volume Laterality 03/24/2021 4:58 PM 3:09 EDT PM EDT Taryn Niño COLLECTIONS ASSOCIATE ECG ORDERABLES Performing Organization Address City/State/ZIP Code Phon e Number MUSE SYSTEM XR Chest One View (03/24/2021 1:39 PM EDT) Anatomical Region Laterality Modality Chest N/A Digital Radiography Specimen (Source) Anatomical Location Collection Method / Collectio n Time Received Time / Laterality Volume Impressions 03/24/2021 1:42 PM EDT No acute cardiopulmonary abnormality. Stable cardiomegaly. Thank you for letting us participate in the care of this patient. ??If you are a health care provider and have any questi ons regarding this report, please contact the number below. ??For patients who have questions please contact the health rn critical care that requested your imaging first. ? Narrative 03/24/2021 1:42 PM EDT EXAMINATION: XR CHEST ONE VIEW CLINICAL HISTORY: sob and cough started last night TECHNIQUE: 1 view of the chest COMPARISON: Chest x-ray 01/09/2021 FINDINGS: As before, the patient is status post me estefanía sternotomy. Cerclage wires are intact. Prosthetic cardiac valves noted. No change in the enlarged cardiac silhouette. The central pulmonary vascul ar markings within normal limits. Unchanged streaky opacities adjacent to the cardiac apex. No new, focal airspace opacity. No large pleural effusion. No p neumothorax. Procedure Note Zackery Broderick MD - 03/24/2021Formattin g of this note might be different from the original. EXAMINATION: XR CHEST ONE VIEW CLINICAL HISTORY: sob and cough started last night TECHNIQUE: 1 view of the chest COMPARISON: Chest x-ray 01/09/2021 FINDINGS: As before, the patient is status post me estefanía sternotomy. Cerclage wires are intact. Prosthetic cardiac valves noted. No change in the enlarged cardiac silhouette. The central pulmonary vascul ar markings within normal limits. Unchanged streaky opacities adjacent to the cardiac apex. No new, focal airspace opacity. No large pleural effusion. No p neumothorax. IMPRESSION No acute cardiopulmonary abnormality. St able cardiomegaly. Thank you for letting us participate in the care of this patient. If you are a health care provider and have any questi ons regarding this report, please contact the number below. For patients w ho have questions please contact the health rn critical care that requested your imaging first. Chanel Zuleta MD IMG DX ORDERABLES COVID-19 PCR (03/24/2021 11:50 AM EDT) [facility] Method Time Signature SARS-CoV-2 Not Detected Not Detected CHANDAN RNA PCR [facility] Comment: This result should be interpreted in com bination with the clinical observations, patient history and epidem iological information. For testing of asymptomatic individuals, assay performa nce characteristics and clinical utility have not been evaluated. Testing for SARS-CoV-2 (Severe acute respiratory syndrome coronavirus 2, form erly known as 2019 novel coronavirus or 2019-nCoV) to aid in the diagnosis of CO VID-19 is performed using the Simplexa COVID-19 Direct Assay by [employer] miller as authorized by the FDA issued Emergency Use Authorization (EUA). This assay is intended for In-vitro Diagnostic (IVD) use with nasopharyngeal swabs collected from individuals meeting the CDC criteria for testing. Th e assay is performed based on the instructions for use and additional guid ance provided by the FDA. Testing is performed in the Microbiology Laboratory within the Department of Pathology and Laboratory Medicine at [facility], certified under the Clinical Laboratory Improvement Amendmen ts of 1988 (CLIA), 42 U.S.C. section 263a, to perform high complexity tests. Assay performance has been verified according to clinical laboratory regulat ory requirements. Test results are provided above. A resul t of Not Detected indicates that the viral RNA target is not present but does not preclude SARS-CoV-2 infection. False negative results may occur if a sp ecimen is improperly collected, transported or handled; if amplification inhibitors are present; or if inadequate numbers of viral particles ar e present in the specimen. A result of Detected suggests a current or recent infection and the patient is presumed to be infected. Positive and negative pr edictive values for this test are highly dependent on disease prevalence. A result of Invalid indicates the inability to conclusively determine the presence or absence of SARS-CoV-2 RNA in the sample which can be due to a vari ety of factors. Recollection is recommended in the case of an invalid re sult. CDC COVID-19 criteria for testing on hum an specimens and clinical management guidance information are available at e CDC Coronavirus Disease 2019 (COVID-19) webpage under Information fo r Healthcare Professionals (https://www.cdc.gov/coronavirus/2019-nc ov/hcp/index.html). 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 [facility] Specimen (Source) Anatomical Collection Method Collection Time Re ceived Time Location / / Volume Laterality Nasopharyngeal swab 03/24/2021 11:50 05/0 02/2021 (specimen) AM EDT 12:24 PM EDT Comment: Symptoms->COVID-19 Suspected Resulting Agency Comment Spec In Lab Maikel Zheng MD MICROBIOLOGY - GENERAL ORDER YUNIEL Performing Organization Address City/State/Z[place] [address] Urinalysis with reflex Culture (03/24/2021 11:36 AM EDT) [facility] Method Time Signature Glucose UA Negative Negative [facility] mg/dL [facility] Protein UA Negative Negative [facility] mg/dL [facility] Bilirubin UA Negative Negative [facility] mg/dL [facility] Comment: Clinical correlation required for positi ve Urine Bilirubin results as false positive may occur with some drugs and d rug related products. If a false positive is suspected a serum total bili haro should be considered if clinically indicated. Urobilinogen UA Normal Normal mg/dL [facility] pH UA 5.5 5.0 - 8.0 [facility] Blood UA Negative Negative mg/dL [facility] Ketones UA Negative Negative mg/dL [facility] Nitrite UA Negative Negative [facility] Leukocytes UA Negative Negative [facility] Appearance UA Clear Clear [facility] Spec [place] UA 1.012 1.006 - 1.030 [facility] Color UA Yellow Yellow [facility] Culture Reflexed No [facility] Specimen (Source) Anatomical Collection Method Collection Time Re ceived Time Location / / Volume Laterality Urine specimen 03/24/2021 11:36 1 obtained by clean AM EDT 11:59 AM E DT catch procedure (specimen) Resulting Agency Comment Spec In Lab Maikel Zheng MD URINE ORDERABLES Performing Organization Address City/State/ZIP [place] [address] EKG 12 Lead (03/24/2021 11:19 AM EDT) Component Value Ref Range Test Analysis Performed Pathologis t Method Time At Signature Ventricular rate 70 BPM MUSE SYSTEM Atrial Rate 70 BPM MUSE SYSTEM P-R Interval 214 ms MUSE SYSTEM QRS Duration 180 ms MUSE SYSTEM Q-T Interval 474 ms MUSE SYSTEM QTC Calculated 511 ms MUSE SYSTEM (Bezet) Calculated R [place] -65 degrees MUSE SYSTEM Calculated T [place] 24 degrees MUSE SYSTEM INTERPRETATION Sinus rhythm with 1st degree A-V block MUSE SYSTEM Left axis deviation Left bundle branch block Abnormal ECG When compared with ECG of 24-AUG-2019 10:07, Sinus rhythm has replaced Atrial fibrillation Confirmed by MD Aniya, Ravi Hoffman ([id number]) on 03/24/2021 4:41 :31 PM Specimen Anatomical Collection Method Collection Time Receive d Time (Source) Location / / Volume Laterality 03/24/2021 11:19 03/24/2021 4:41 AM EDT PM EDT Maikel Zheng MD ECG ORDERABLES Performing Organization Address City/State/ZIP Code Phon e Number MUSE SYSTEM Differential, Automated (03/24/2021 11:11 AM EDT) P athologist Signature Neutrophils % 66.2 % [facility] Neutr Abs (ANC) 2.87 1.70 - [facility] 6.10 [facility] x10(3)/[facility] Lymphocytes % 24.0 % [facility] Lymphocytes Abs 1.0 0.9 - 3.2 [facility] x10(3)/[facility] LABORATORY Monocytes % 7.4 % [facility] Monocyte Abs 0.3 0.3 - 0.9 [facility] x10(3)/[facility]ORY Eosinophils % 1.2 % [facility] Eosinophils Abs 0.0 0.0 - 0.4 [facility] x10(3)/[facility]ORY Basophils % 0.7 % [facility] Basophils Abs 0.0 0.0 - 0.1 [facility] x10(3)/[facility]OR[facility]ORY Immature Gran % 0.50 % [facility] Comment: Immature granulocytes(IG's)percentage an d absolute count will include metamyelocytes, myelocytes, and promyelo cytes. Blood smears from CBCs yielding IG's will be scanned manually for concor dance. If this scan disagrees with the automated IG or if promyelocytes are not ed, a manual differential will be performed. Cassie Gran Abs 0.02 0.00 - 0.04 x10(3)/[facility] Specimen Anatomical Collection Method Collection Time Receive d Time (Source) Location / / Volume Laterality Blood specimen 03/24/2021 11:11 1 (specimen) AM EDT 11:48 AM EDT Resulting Agency Comment Spec In Lab Maikel Zheng MD HEMATOLOGY ORDERABLES Performing Organization Address City/State/ZIP [place] [address] (ABNORMAL) Hemogram (03/24/2021 11:11 AM EDT) Analysis Performed At Patho logist Time Signature WBC 4.3 4.0 - 9.5 [facility] x10(3)/[facility] LAB[facility] RBC 4.26 (L) 4.58 - [facility] 5.54 [facility] x10(6)/[facility] Hemoglobin 13.3 (L) 13.7 - [facility] 16.5 gm/dL [facility] Hematocrit 40.0 (L) 40.5 - [facility] 48.5 % [facility] MCV 93.9 (H) 82.9 - [facility] 93.1 [facility]OR[facility]ORY MCH 31.2 27.5 - [facility] 32.1 pg [facility] MCHC 33.3 32.0 - [facility] 35.7 gm/dL [facility] Platelets 184 145 - 357 [facility] x10(3)/[facility] LABORATORY RDWSD 47.5 (H) 36.0 - [facility] 45.0 [facility] LABORATORY RDWCV 13.8 11.4 - [facility] 13.8 % [facility] MPV 10.0 7.6 - 12.9 [facility] nRBC % Auto 0.0 % [facility] nRBC Abs Auto 0.000 0.000 - [facility] 0.000 [facility] x10(3)/[facility]ORY Specimen Anatomical Collection Method Collection Time Receive d Time (Source) Location / / Volume Laterality Blood specimen 03/24/2021 11:11 1 (specimen) AM EDT 11:48 AM EDT Resulting Agency Comment Spec In Lab Maikel Zheng MD HEMATOLOGY ORDERABLES Performing Organization Address City/State/ZIP Code Phon e Number [place] [id number] TSH [place] (03/24/2021 11:11 AM EDT) P athologist Signature TSH 0.98 0.27 - 4.20 [facility] mcIU/mL [facility] Specimen Anatomical Collection Method Collection Time Receive d Time (Source) Location / / Volume Laterality Blood specimen 03/24/2021 11:11 1 (specimen) AM EDT 11:48 AM EDT Resulting Agency Comment Spec In Lab Maikel Zheng MD CHEMISTRY ORDERABLES Performing Organization Address City/[facility]/ZIP Code [place] [address] Troponin (03/24/2021 11:11 AM EDT) P athologist Signature Troponin-T <0.01 0.00 - 0.00 [facility] ng/mL [facility] Comment: The 99th percentile for Troponin T is le ss than 0.01 ng/mL, any detectable cTnT concentration using this assay should be considered elevated. According to the third universal definit ion of myocardial infarction the following criteria with a clinical prese ntation consistent with acute myocardial ischemia meets the diagnosis for a myocardial infarction (PR). Detection of a rise and/or fall of cTnT, with at least one value greater than the 99th percentile (> or = 0.01) and wi th at least one of the following ?? Symptoms of ischemia ?? New or presumed new significant ST-se gment-T wave (ST-T) changes or new left bundle branch block (LBBB) ?? Development of pathologic Q waves in the ECG ?? Imaging evidence of new loss of viabl e myocardium or new regional wall motion abnormality ?? Identification of an intracoronary th rombus by angiography or autopsy Samples for cTnT testing should be obtai kimberlyn serially upon first assessment and again 3 to 6 hours later. If the clinica l suspicion is high and previous samples have been negative an additional sample may be indicated. Reference: Third Reynolds Definition of Myocardial Infarction. Journal of the [place] [employer] 2012;60:1581-98 Specimen Anatomical Collection Method Collection Time Receive d Time (Source) Location / / Volume Laterality Blood specimen 03/24/2021 11:11 1 (specimen) AM EDT 11:48 AM EDT Resulting Agency Comment Spec In Lab Maikel Zheng MD CHEMISTRY ORDERABLES Performing Organization Address City/[facility]/ZIP Code Phon e Number [address] Prothrombin Time (03/24/2021 11:11 AM EDT) athologist Signature PT 12.3 9.4 - 12.5 [facility] sec [facility] INR 1.1 [facility] Comment: An INR <2.0 indicates adequate procoagul ant activity for hemostasis in most patients without underlying bleeding dis orders, though the INR may not adequately reflect hemostatic capacity i n patients with liver disease and synthetic impairment. The recommended ta rget INR range for therapeutic anticoagulation is 2.0 ? 3.0 for most applications, though lower and higher ranges may be appropriate depending on c linical circumstances. Specimen Anatomical Collection Method Collection Time Receive d Time (Source) Location / / Volume Laterality Blood specimen 03/24/2021 11:11 1 (specimen) AM EDT 11:48 AM EDT Resulting Agency Comment Spec In Lab Maikel Zheng MD HEMATOLOGY ORDERABLES Performing Organization Address City/State/ZIP Code [place] [address] (ABNORMAL) Hepatic Function Panel (03/24/2021 11:11 AM EDT) athologist Signature Total Protein 6.3 6.1 - 8.0 [facility] gm/dL [facility] Albumin 3.7 3.2 - 5.2 [facility] gm/dL [facility] AST 13 0 - 39 [facility] unit/L [facility] ALT 8 0 - 55 [facility] unit/L [facility] Alk Phos 38 (L) 40 - 130 [facility] unit/L [facility] Total 0.2 0.2 - 1.3 [facility] Bilirubin mg/dL [facility] Bili, Direct 0.1 0.0 - 0.3 [facility] mg/dL [facility] Specimen Anatomical Collection Method Collection Time Receive d Time (Source) Location / / Volume Laterality Blood specimen 03/24/2021 11:11 1 (specimen) AM EDT 11:48 AM EDT Resulting Agency Comment Spec In Lab Maikel Zheng MD CHEMISTRY ORDERABLES Performing Organization Address City/State/ZIP [place] [address] (ABNORMAL) Basic Metabolic Panel (non-fasting) (03/24/2021 11:11 AM EDT) P athologist Signature Glucose Lvl 82 65 - 199 [facility] mg/dL [facility] Comment: Diabetes: >=200 mg/dL plus symp toms BUN 31 (H) 10 - 20 mg/dL [facility] Creatinine 1.81 (H) 0.80 - 1.50 mg/dL [facility] Sodium 135 135 - 145 mmol/L [facility] Potassium 4.0 3.5 - 5.0 mmol/L [facility] Comment: Please note: ??Patients with WBC >100,00 0 may have falsely elevated Potassium levels. ??For accurate Potassium quantif ication in these patients send serum separator tube (gold top) for subsequent determinations. ??Contact the Clinical Chemistry Laboratory if there are any qu estions. Chloride 101 98 - 107 mmol/L [facility] CO2 22 22 - 31 mmol/L [facility] Anion Gap 12 5 - 15 mmol/L [facility] Calcium 8.3 (L) 8.5 - 10.5 mg/dL [facility] Estimated GFR 38 (L) >=60 mL/min/1.73 m?? [facility] Comment: This patient? s estimated glomerular filtration rate (eGFR) is between 38 mL/min/1.73 m2 (patients with less muscl e mass per kg body weight) and 44 mL/min/1.73 m2 (patients with more muscl e [...] (Source) Location / / Volume Laterality Blood specimen 03/24/2021 11:11 (specimen) AM EDT 11:48 AM EDT Resulting Agency Comment Spec In Lab Maikel Zheng MD CHEMISTRY ORDERABLES Performing Organization Address City/State/ZIP [place] [address] Head wo & Multiphase CTA Head/Neck (THROMBECTOMY PROTOCOL) (03/24/2021 11:08 AM EDT) Anatomical Region Laterality Modality Head Computed Tomography Specimen (Source) Anatomical Location Collection Method / Collectio n Time Received Time / Laterality Volume Impressions 03/24/2021 11:40 AM EDT 1. ??No acute intracranial process. 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 2. 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 3. ??Otherwise unremarkable major arteri es of the head and neck. 4. ??Mildly aneurysmal aortic arch. Thank you for letting us participate in the care of this patient. ??If you are a health care provider and have any questi ons regarding this report, please contact the number below. ??For patients who have questions please contact the health rn critical care that requested your imaging first. ? Narrative 03/24/2021 11:40 AM EDT EXAMINATION: CT HEAD WO & MULTIPHASE CTA HEAD/NECK (THROMBECTOMY PROTOCOL) CLINICAL HISTORY: px lkw last night pres enting with ams and ct findings concerning for r sided stroke TECHNIQUE: CT of head without intravenous contrast. Multiphase CTA of the carotids and lower [place] is performed after the administration of 65cc of Omnipaque 350 intravenous contrast. MIP and 3-D volume tric reconstructions were created. COMPARISON: Most recent available comparison images at this time are CT head 08/30/2017, CTA head and neck 08/31/2017. FINDINGS: CT head: Encephalomalacia of the right m iddle frontal gyral cortex and subcortical white matter has progressed from mild hypoattenuation on the 08/30/2017 CT, consistent with a remote infarction. Small focus of similar appearing encephalomalacia in the right occipital lobe corresponds with hypoattenuation on the previous CT and i s also consistent with a remote infarction. The remaining tirado-white matter interfac es are preserved. No acute intracranial hemorrhage. No extra-axial fluid collect ion or mass effect. Mild proportionate enlargement of the ventricles, sulci and cisterns suggestive of age-related cerebral and cerebellar volume loss. Unr emarkable calvarium. Mastoid air cells and tympanic cavities are clear. Minor p aranasal sinus mucosal thickening. 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 Conventional 3 vessel branch pattern. No stenosis of the proximal great vessels. Tortuous course of the proximal right co mmon carotid artery. Both common carotid arteries are normal in caliber. Thin linear filling defects within both carotid bifurcations (example series 6 image 252) without associated luminal na rrowing that are favored carotid webs. These are more conspicuous than on the 1 examination. The extracranial ICAs are normal in course and caliber. The extradural vertebral arteries are no rmal in course and caliber. CTA HEAD: The petrous and cavernous segm ents of the ICAs are normal in caliber. Mild stenosis of the paraclinoid ICAs se condary to atherosclerosis. No MCA or LUCY stenosis. Patent anterior communicat ing artery and right posterior communicating artery. The intradural segments of the vertebral arteries and basilar artery are normal. 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 Nonvascular findings: Subsolid opacity i n the anterior right upper lobe has been present since at least 04/02/2019 and is most likely scarring. Procedure Note Issac Harden MD - 03/24/2021Format ting of this note might be different from the original. EXAMINATION: CT HEAD WO & MULTIPHASE CTA HEAD/NECK (THROMBECTOMY PROTOCOL) CLINICAL HISTORY: px lkw last night pres enting with ams and ct findings concerning for r sided stroke TECHNIQUE: CT of head without intravenous contrast. Multiphase CTA of the carotids and lower [place] is performed after the administration of 65cc of Omnipaque 350 intravenous contrast. MIP and 3-D volume tric reconstructions were created. COMPARISON: Most recent available comparison images at this time are CT head 08/30/2017, CTA head and neck 08/31/2017. FINDINGS: CT head: Encephalomalacia of the right m iddle frontal gyral cortex and subcortical white matter has progressed from mild hypoattenuation on the 08/30/2017 CT, consistent with a remote infarction. Small focus of similar appearing encephalomalacia in the right occipital lobe corresponds with hypoattenuation on the previous CT and i s also consistent with a remote infarction. The remaining tirado-white matter interfac es are preserved. No acute intracranial hemorrhage. No extra-axial fluid collect ion or mass effect. Mild proportionate enlargement of the ventricles, sulci and cisterns suggestive of age-related cerebral and cerebellar volume loss. Unr emarkable calvarium. Mastoid air cells and tympanic cavities are clear. Minor p aranasal sinus mucosal thickening. 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 Conventional 3 vessel branch pattern. No stenosis of the proximal great vessels. Tortuous course of the proximal right co mmon carotid artery. Both common carotid arteries are normal in caliber. Thin linear filling defects within both carotid bifurcations (example series 6 image 252) without associated luminal na rrowing that are favored carotid webs. These are more conspicuous than on the 1 examination. The extracranial ICAs are normal in course and caliber. The extradural vertebral arteries are no rmal in course and caliber. CTA HEAD: The petrous and cavernous segm ents of the ICAs are normal in caliber. Mild stenosis of the paraclinoid ICAs se condary to atherosclerosis. No MCA or LUCY stenosis. Patent anterior communicat ing artery and right posterior communicating artery. The intradural segments of the vertebral arteries and basilar artery are normal. 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 Nonvascular findings: Subsolid opacity i n the anterior right upper lobe has been present since at least 04/02/2019 and is most likely scarring. IMPRESSION 1. No acute intracranial process. 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 2. 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 3. Otherwise unremarkable major arteries of the head and neck. 4. Mildly aneurysmal aortic arch. Thank you for letting us participate in the care of this patient. If you are a health care provider and have any questi ons regarding this report, please contact the number below. For patients w ho have questions please contact the health rn critical care that requested your imaging first. Chanel Zuleta MD IMG CT ORDERABLES documented in this encounter Visit Diagnoses Diagnosis Altered mental status, unspecified alter ed mental status type Atrial fibrillation, unspecified type Atrial fibrillation, unspecified type documented in this encounter Admitting Diagnoses Diagnosis AMS (altered mental status) documented in this encounter Administered Medications Inactive Administered Medications - up to 3 most recent administrations Medication Order MAR Action Action Date Dose Rate Site acetaminophen (Tylenol) (32.02 mg/mL) or al liquid 975 mg 975 mg, Per G Tube, EVERY 6 HOURS PRN, S tarting on Tue03/24/21 at 1642, Until Tue03/25/21 at 2030, Pain, Fever, pain or temperature great er than 100 degrees F (measured by mouth), Maximum dose of akin taminophen is 4000 mg from all sources in 24 hours. When ordered for pain, acetaminophen should be given even when other ordered pain medications are indicated. , Routine acetaminophen (Tylenol) suppository 975 mg 975 mg, Rectal, EVERY 6 HOURS PRN, Start ing on Tue03/24/21 at 1642, Until Tue03/25/21 at 2030, Pain, Fever, pain or temperatur e greater than 100 degrees F (measured by mouth), Maximum dose of acetaminophen is 4000 mg from all sources in 24 hours. When ordered for pain, acetaminophen should be given even w hen other ordered pain medications are indicated. , Routine acetaminophen (Tylenol) tablet 975 mg Given 03/24/2021 9:50 PM EDT 975 mg 975 mg, Oral, EVERY 6 HOURS PRN, Starting on Tue03/24/21 at 1642, Until Tue03/25/21 at 2031, Pain, Fever, pain or temperature greater than 100 degrees F (measured by mouth), Maximum dose of acetaminophen is 4000 mg from all sources in 24 hours. When ordered for pain, acetaminophen should be given even when other ordered pain medications are indicated. , Routine aspirin chewable tablet 81 mg Given 03/25/2021 8:52 AM EDT 81 mg 81 mg, Oral, DAILY, First dose on Tue03/25/21 at 0900, Until Discontinued, Routine cyclobenzaprine (Flexeril) tablet 10 mg Given 03/25/2021 12:53 AM EDT 10 mg 10 mg, Oral, ONCE, 1 dose, On Tue03/25/21 at 0115, Routine finasteride (Proscar) tablet 5 mg Given 03/25/2021 8:57 AM EDT 5 mg 5 mg, Oral, DAILY, First dose on Tue03/24/21 at 2030, Until Discontinued, DO NOT SPLIT, CRUSH OR OPEN, Routine Given 03/24/2021 9:00 PM EDT 5 mg folic acid (Folvite) tablet 1,000 mcg Given 03/25/2021 8:52 AM EDT 1,000 mcg 1,000 mcg (1 mg), Oral, DAILY, First dose on Tue03/24/21 at 2030, Until Discontinued, Routine Given 03/24/2021 9:00 PM EDT 1,000 mcg iohexoL (Omnipaque) (350 mg/mL) injection Given 03/24/2021 11:09 AM EDT 65 mLs solution 0-200 mL 0-200 mL, Intravenous, ONCE PRN, 1 dose, Starting on Tue03/24/21 at 1109, Until Tue03/24/21 at 1109, Per Protocol, Warning Vesicant/Irritant Medication , Radiology Contrast, Routine levETIRAcetam (Keppra) tablet 500 mg Given 03/25/2021 11:51 AM EDT 500 mg 500 mg, Oral, 2 TIMES DAILY, First dose on Tue03/25/21 at 1100, Until Discontinued, Routine metoprolol succinate XL (Toprol-XL) tablet Given 03/24/2021 8:36 PM EDT 100 mg 100 mg 100 mg, Oral, NIGHTLY, First dose on Tue03/24/21 at 2100, Until Discontinued, DO NOT CRUSH OR OPEN, Routine metoprolol succinate XL (Toprol-XL) tablet Given 03/25/2021 8:53 AM EDT 150 mg 150 mg 150 mg, Oral, DAILY AFTER BREAKFAST, First dose on Tue03/25/21 at 0900, Until Discontinued, DO NOT CRUSH OR OPEN, Routine pantoprazole EC (Protonix) tablet 20 mg Given 03/25/2021 8:53 AM EDT 20 mg 20 mg, Oral, 2 TIMES DAILY, First dose on Tue03/24/21 at 2100, Until Discontinued, DO NOT CRUSH OR OPEN, Routine Given 03/24/2021 8:36 PM EDT 20 mg sacubitriL-valsartan (Entresto) 97-103 mg Given 03/25/2021 8 :53 AM EDT 1 tablet per tablet 1 tablet 1 tablet, Oral, 2 TIMES DAILY, First dose on Tue03/24/21 at 2100, Until Discontinued, Routine Given 03/24/2021 9:51 PM EDT 1 tablet senna-docusate (Pericolace) 8.6-50 mg per Given 2020 8:54 AM EDT 2 tablets tablet 2 tablet 2 tablet, Oral, 2 TIMES DAILY, First dose on Tue03/24/21 at 2100, Until Discontinued, Administer to achieve 1 soft bowel movement daily without straining, Routine Given 03/24/2021 8:37 PM EDT 2 tablets sodium chloride 0.9 % (flush) flush 5 mL Given 03/25/2021 8:57 AM EDT 5 mLs 5 mL, Intravenous, 2 TIMES DAILY, First dose on Tue03/24/21 at 2100, Until Discontinued, Routine Given 03/24/2021 8:44 PM EDT 5 mLs tamsulosin (Flomax) capsule 0.4 mg Given 03/25/2021 8:52 AM EDT 0.4 mg 0.4 mg, Oral, DAILY, First dose on Tue03/24/21 at 2030, Until Discontinued, DO NOT CRUSH OR OPEN, Routine Given 03/24/2021 9:00 PM EDT 0.4 mg torsemide (Demadex) tablet 10 mg Given 03/25/2021 8:53 AM EDT 10 mg 10 mg, Oral, DAILY, First dose on Tue03/24/21 at 2030, Until Discontinued, Routine Given 03/24/2021 9:00 PM EDT 10 mg documented in this encounter Active and Recently Administered Medications Times are shown in EDT. Scheduled Medication Order 03/23/2021 03/24/2021 03/25/2021 aspirin chewable tablet 81 mg 08 52 (Given - Provider: Tamiko Murguia RN) 81 mg, Oral, DAILY, First dose on 04/10 at 0900, Until Discontinued, Routine cyclobenzaprine (Flexeril) tablet 10 mg (COMPLETED) 52 (Given - Provider: Cha Park RN) 10 mg, Oral, ONCE, 1 dose, Tue03/25/21 at 0115, Routine finasteride (Proscar) tablet 5 mg 2099 (Given - Provider: Cha Park RN) 08 (Given - Provider: Tamiko Murguia RN) 5 mg, Oral, DAILY, First dose on 03/24 at 2030, Until Discontinued, DO NOT SPLIT, CRUSH OR OPEN, Routine folic acid (Folvite) tablet 1,000 mcg (Given - Provider: Cha Park RN) 0852 (Given - Provider: Tamiko Murguia RN) 1,000 mcg (1 mg), Oral, DAILY, First dos e on Tue03/24/21 at 2030, Until Discontinued, Routine levETIRAcetam (Keppra) tablet 500 mg 115 (Given - Provider: Tamiko Murguia RN) 500 mg, Oral, 2 TIMES DAILY, First dose on Tue03/25/21 at 1100, Until Discontinued, Routine metoprolol succinate XL (Toprol-XL) tablet 100 mg(Linked Torsten up 1) 2035 (Given - Provider: Cha Park RN) 100 mg, Oral, NIGHTLY, First dose on Tue03/24/21 at 2100, Until Discontinued, DO NOT CRUSH OR OPEN, Routine metoprolol succinate XL (Toprol-XL) tablet 150 mg(Linked Group 1 ) 0853 (Given - Provider: Tamiko Murguia RN) 150 mg, Oral, DAILY AFTER BREAKFAST, Fir st dose on Tue03/25/21 at 0900, Until Discontinued, DO NOT CRUSH OR OPEN, Routine pantoprazole EC (Protonix) tablet 20 mg 2035 (Given - Provider: Cha Park RN) 0853 (Given - Provider: Tamiko Murguia RN) 20 mg, Oral, 2 TIMES DAILY, First dose o n Tue03/24/21 at 2100, Until Discontinued, DO NOT CRUSH OR OPEN, Routine polyethylene glycoL (Miralax) packet 17 g 1729 (Not Given - Provider: Tamiko Murguia RN - Reason: Patient/family refused) 0900 (Not Given - Provider: Tamiko Murguia RN - Reason: Patient/family refused) 17 g, Oral, DAILY, First dose on 03/24 at 1730, Until Discontinued, Routine sacubitriL-valsartan (Entresto) 97-103 mg per tablet 1 table t 2150 (Given - Provider: Cha Park RN) 0853 (Given - Provider: Tamiko Murguia RN) 1 tablet, Oral, 2 TIMES DAILY, First dos e on Tue03/24/21 at 2100, Until Discontinued, Routine senna-docusate (Pericolace) 8.6-50 mg per tablet 2 tablet 2036 (Given - Provider: Cha Park RN) 0854 (Given - Provider: Tamiko Murguia RN) 2 tablet, Oral, 2 TIMES DAILY, First dos e on Tue03/24/21 at 2100, Until Discontinued, Administer to achieve 1 soft bowel movement daily without straining, Routine sodium chloride 0.9 % (flush) flush 5 mL 2043 (Given - Provider: Cha Park RN) 0857 (Given - Provider: Tamiko Murguia RN) 5 mL, Intravenous, 2 TIMES DAILY, First dose on Tue03/24/21 at 2100, Until Discontinued, Routine tamsulosin (Flomax) capsule 0.4 mg 2099 (Given - Provider: Cha Park RN) 0852 (Given - Provider: Tamiko Murguia, BEHZAD) 0.4 mg, Oral, DAILY, First dose on Tue at 2030, Until Discontinued, DO NOT CRUSH OR OPEN, Routine torsemide (Demadex) tablet 10 mg 2100 (Given - P rovider: Cha Park RN) 0853 (Given - Provider: Tamiko Murguia, BEHZAD) 10 mg, Oral, DAILY, First dose on 03/11 at 2030, Until Discontinued, Routine PRN Medication Order 03/23/2021 03/24/2021 03/25/2021 acetaminophen (Tylenol) (32.02 mg/mL) oral liquid 975 mg(Peg ked Group 2) 2149 (See Alternative - Provider: Cha Park RN) 975 mg, Per G Tube, EVERY 6 HOURS PRN, S tarting Tue03/24/21 at 1642, Until Tue03/25/21 at 2030, Pain, Fever, pain or temperature greater than 100 degrees F (measured by mouth), Maximum dose of acetaminoph en is 4000 mg from all sources in 24 james rs. When ordered for pain, acetaminophen should be given even when other ordered pain medications are indicated. , Routine acetaminophen (Tylenol) suppository 975 mg(Linked Group 2) 2149 (See Alternative - Provider: Cha Park RN) 975 mg, Rectal, EVERY 6 HOURS PRN, Start ing Tue03/24/21 at 1642, Until Tue03/25/21 at 2030, Pain, Fever, pain or temperature greater than 100 degrees F (measured by mouth), Maximum dose of acetaminophen i s 4000 mg from all sources in 24 hours. When ordered for pain, acetaminophen should be given even when other ordered pain medications are indicated. , Routine acetaminophen (Tylenol) tablet 975 mg(Linked Group 2) 2149 (Given - Provider: Cha Park RN) 975 mg, Oral, EVERY 6 HOURS PRN, Startin g Tue03/24/21 at 1642, Until Tue03/25/21 at 2030, Pain, Fever, pain or temperature greater than 100 degrees F (measured by mouth), Maximum dose of acetaminophen is 4000 mg from all sources in 24 hours. Wh en ordered for pain, acetaminophen should be given even when other ordered pain medications are indicated. , Routine bisacodyL (Dulcolax) suppository 10 mg 10 mg, Rectal, DAILY PRN, Starting Tue at 1642, Until Tue03/25/21 at 2030, Constipation, Administer if needed per patient's routine or if no bowel movement within 48 hours to achieve: (1) One solomon l movement at least every 48 hours, AND (2) Without straining. If multiple PRN bowel medications ordered, start with magnesium hydroxide, then bisacodyl. Multiple medications may be given concomitantly for constipation., Routine iohexoL (Omnipaque) (350 mg/mL) injection solution 0-200 mL (COMPLETED) 1109 (Given - Provider: Sienna Quinn) 0-200 mL, Intravenous, ONCE PRN, 1 dose, Starting 03/24/21 at 1109, Until Tu03/24/21 at 1109, Per Protocol, Warning Vesicant/Irritant Medication , Radiology Contrast, Routine labetaloL (Normodyne) (5 mg/mL) injection solution 10-20 mg 10-20 mg, Intravenous, EVERY 15 MIN PRN, Starting Tue03/24/21 at 1642, Until Tue03/25/21 at 2030, High Blood Pressure, - Systolic blood pressure (SBP) goal Less Than 180 mmHg. Start with 10 mg/dose every 15 minutes, If inadequate effect with 10 mg/dose then increase to 20 mg/dose for subsequent dosing. - Do not exceed 300 mg per day. - Repeat every 15 minutes for SBP greater than 220 mmHg. - Hold if pul se is less than 50 beats per minute. I f Labetalol does not satisfactorily control BP within 30 minutes, consider enalaprilat or niCARdipine., Routine lidocaine (Xylocaine) 1% (10 mg/mL) injection 3 mg 3 mg (0.3 mL), Subcutaneous, ONCE PRN, 1 dose, Starting 03/24/21 at 1642, Until Tue03/25/21 at 2030, for discomfort with PIV insertion, Routine magnesium hydroxide (Milk of Magnesia) (240 mg/mL) oral liquid 1 0 mL 10 mL, Oral, NIGHTLY PRN, Starting Tue at 1642, Until Tue03/25/21 at 2030, Constipation, Administer if needed per patient's routine or if no bowel movement within 48 hours to achieve: (1) One solomon l movement at least every 48 hours, AND (2) Without straining. If multiple PRN bowel medications ordered, start with magnesium hydroxide, then bisacodyl. Multiple medications may be given concomitantly for constipation., Routine sodium chloride 0.9 % (flush) flush 5-20 mL 5-20 mL, Intravenous, EVERY 1 MIN PRN, S tarting Tue03/24/21 at 164, Until Tue03/25/21 at 2030, flush, Flush pertains to all indwelling lines. Flush per protocol found in the job aid using the link provided on this medication record., Routine Linked Groups Order Group 1: metoprolol succinate XL (Toprol-XL) tablet 150 mgJump to med 150 mg, Oral, DAILY AFTER BREAKFAST, Fir st dose on Tue03/25/21 at 0900, Until Discontinued
DO NOT CRUSH OR OPEN
Routine And metoprolol succinate XL (Toprol-XL) tablet 100 mgJump to med 100 mg, Oral, NIGHTLY, First dose on Tue03/24/21 at 2100, Until Discontinued
DO NOT CRUSH OR OPEN
Routine Group 2: acetaminophen (Tylenol) tablet 975 mgJump to med 975 mg, Oral, EVERY 6 HOURS PRN, Startin g Tue03/24/21 at 1641, Until Tue03/25/21 at 2030, Pain, Fever, pain or temperature greater than 100 degrees F (measured by mouth)
Maximum dose of acetamino phen is 4000 mg from all sources in 24 h ours. When ordered for pain, acetaminophen should be given even when other ordered pain medications are indicated.
Routine Or acetaminophen (Tylenol) (32.02 mg/mL) oral liquid 975 mgJump to med 975 mg, Per G Tube, EVERY 6 HOURS PRN, S tarting Tue03/24/21 at 1642, Until Tue03/25/21 at 2030, Pain, Fever, pain or temperature greater than 100 degrees F (measured by mouth)
Maximum dose of akin taminophen is 4000 mg from all sources i n 24 hours. When ordered for pain, acetaminophen should be given even when other ordered pain medications are indicated.
Routine Or acetaminophen (Tylenol) suppository 975 mgJump to med 975 mg, Rectal, EVERY 6 HOURS PRN, Start ing Tue03/24/21 at 1642, Until Tue03/25/21 at 2031, Pain, Fever, pain or temperature greater than 100 degrees F (measured by mouth)
Maximum dose of acetami nophen is 4000 mg from all sources in 24 hours. When ordered for pain, acetaminophen should be given even when other ordered pain medications are indicated.
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
--- OUTSIDE RECORDS SUMMARY | 2022-05-20 07:37 | XMS_ITS | Encounter Summary ---
:1955 Author Organization [facility] [place] [address] Care Team Providers Name Role Phone Pricila Geller JOELLE Primary Care Provider Encounter Details Date Type Department Care Team Description 04/10/2021 TH Visit Cardiology at [facility] Sp Gutierrez, Nutritional (TeleHealth) [facility] counseling [place], [place] [facility] [id number] [place], [place] [id number] Social History Tobacco Use Types Packs/Day Years [...] as of this encounter Progress Notes Sp Gutierrez, RD - 04/10/2021 1:00 PM EDT Images from the original note were not included. [facility] Cardiovascular Medicine Cardiology Nutrition Follow-up [facility] [id number] , #2 eFax: 04/10/21 Identification Cong Khan is a 66 y.o. patient of Pricila Geller APRN referred to Cardiology Dietitian Medical Genetics Director by Dr. You for nutrition management of CHF, A. Fib, HTN in the setting of history of alcohol use disorder (sober 6 years), stroke (2017). 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 Cong Khan's Overall Health Goal: What do I need to do eat, considering my kidneys? Plan from last visit 1. Reviewed diet pattern; answered questions concerning particular foods. Cong is highly-focused on doing what he needs to to maintain his health. 2. Cong plans to e-mail me a list of his supplements to ask if any may damage his kidneys. Wishes to review this at our next visit in 2 weeks. Food and Lifestyle-related Successes: Eating 5 oz daily HBV protein Changed to plant milk and plant yogurt to reduce protein intake from cow's milk; Hodan reports Cong's bad breath is gone since reducing his protein intake from collagen powder. 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 Didn't e-mail supplement list. Objective Present Diet: 1800 calorie, 2 gram sodium, 64 g protein diet = 46 g protein from food. IBW = 72.7 kg (160#) +/- 10% Kcal need = 25 to 30 kcals/kg IBW = 1800 to 2100 kcals/day Protein need = 0.8 g/kg ABW = 64 g/day SFA < 6% = 12 g/day Fluid needs: 25 to 30 ml/kg ABW = 2.1 L or more daily FOOD [employer] SERVING SIZE & EXAMPLES Lean Proteins 5 1 ounce poultry, fish, lean meats; 2 egg whites; 2 T parmesan, ?? cup low-fat cottage cheese; 3 oz tofu; B: 3 eggs; 1 tst; OR cereal 1/2 cup Legumes 1 ?? cup childs soup, ?? cup cooked beans, ?? cup vegetarian refried beans, ?? cup cooked lentils or peas (black-eye, chick, jer). S: soup; 3 oz meat Dairy Alternative 3 8 ounces almond or soy milk, 6 ounces almond or soy yogurt. Sn: vegetable, childs sprouts, avocado Nuts & Seeds 1 4 walnut or pecan halves, 6 almonds, 16 pistachios; ?? Tablespoon nut and seed butters; 1 Tablespoon seeds. Fats & Oils 15 [place] oil, vegetable oils, mayonnaise, margarine Non-Starchy Veg 7 ?? cup cooked, 1 cup raw Starchy Veg 1 Medium potato, ?? cup cooked parsnip, turnip, winter squash. Grains 1 ?? cup cooked oatmeal or barley or cold cereal or pasta; 1 slice bread, 1/3 cup cooked pasta or rice; ?? lexis, 1 6?? tortilla. Fruits 3 ?? cup mixed berries, 12 cherries; 1 kiwi, 2 small plums, 1 apple Interim Events: n/a Physical Estimated body mass index is 26.13 kg/m?? as calculated from the following: Height as of 01/28/21: 175.3 cm (5' 9.02). Weight as of 01/28/21: 80.3 kg (177 lb). Reported weight: Haven't weighed self in past week; don't think lost weight. Wt Readings from Last 3 Encounters: 01/28/21 80.3 kg (177 lb) 12/10/20 78 kg (172 lb) 10/24/20 81.7 kg (180 lb 1.9 oz) No Updated Labs Since Last Visit Nutrition Assessment/Impression/Diagnosis Protein excessive due to 18 g/day from collagen powder, in addition to dietary intakes. Without the collagen powder, intakes follow provided meal pattern nicely, and provide him 0.8 g protein/kg ABW/day. Sodium intake 2 to 2.5 g/day. Cong seemed much more clear-thinking today, suggesting uremia has lessened compared to our visit 2weeks ago. Plan/Intervention/Recommendations ?? Stop taking collagen peptides ?? Maintain protein intakes 0.8 g/kg ABW from food sources to sustain health while not over-taxing renal function ?? Maintain sodium intakes 2 to 2.5 g/day Follow-up: After next labwork; patient to call to schedule. Thank you for the privilege of working with this patient. Sp Gutierrez, MALOU, LD This was a TeleHealth Nutrition Visit. Patient verbalizes consent to the telehealth visit for nutrition counseling and coaching. Patient islocated at home. The current time is 1:00. Call ended time is: 1:40. cc: Pricila Geller APRN [address] [place] [address] documented in this encounter Plan of Treatment Upcoming Encounters Date Type Specialty Care Team Description 06/16/2022 Laboratory Appointment Lab 06/16/2022 Office Visit Cardiology Gianna Lorenzana PA [facility] Cardiology Dept [place] [id number] (Wo rk) Scheduled Procedures Name Priority Associated [...] Facing Tad A, Understanding Action Plan [facility] Note: Formatting of this note might be d ifferent from the original. Maintain 100% adherence to Entresto twic e daily regimen documented as of this encounter Visit Diagnoses Diagnosis Nutritional counseling documented in this encounter Care Teams Wafer Mounter Relationship Specialty Start Date End Date Pricila Geller APRN PCP - General Family Medicine 11/24/18 [place] [address] documented as of this encounter
--- OUTSIDE RECORDS SUMMARY | 2022-05-20 07:37 | XMS_ITS | Encounter Summary ---
:1955 Author Organization [facility] [place] [address] Care Team Providers Name Role Phone Pricila Geller APRN Primary Care Provider Reason for Visit Reason Onset Date Comments Questions 11/18/2021 Entresto through [facility] Encounter Details Date Type Department Care Team Description 11/18/2021 Telephone Cardiology at [facility] Prisca Russ, Questions ([facility] RN through Elian marion) [place] [address] Social History Tobacco Use Types Packs/Day [...] Telephone Encounter - Prisca Russ, RN - 11/18/2021 9:28 AM EST Pt calling to report that he is getting requests to renew the Entresto assistance application to [employer]. He has the forms, completed his portion of the application. Pt instructed to contact the [facility] staff to mail his part of the jody;ication to them. We will process the provider portion, will get it back to [employer] to process together. Pt voiced good understanding. documented in this encounter Plan of Treatment Upcoming Encounters Date Type Specialty Care Team Description 06/16/2022 Laboratory Appointment Lab 06/16/2022 Office Visit Cardiology Gianna Lorenzana PA [facility] er Cardiology Dept [place], [place] [address] (Wo rk) Scheduled Procedures Name [...] and Facing Tad A, Understanding Action Plan [facility] Note: Formatting of this note might be d ifferent from the original. Maintain 100% adherence to Entresto twic e daily regimen documented as of this encounter Visit Diagnoses Not on filedocumented in this encounter Care Teams Chute Tender Relationship Specialty Start Date End Date Pricila Geller APRN PCP - General Family Medicine 11/24/18 [address] [place] [address] documented as of this encounter
--- OUTSIDE RECORDS SUMMARY | 2022-05-20 07:37 | XMS_ITS | Encounter Summary ---
:1955 Author Organization [place] [address] Care Team Providers Name Role Phone Pricila Geller APRN Primary Care Provider Reason for Visit Reason Comments Medication Refill Encounter Details Date Type Department Care Team Description 08/08/2021 Refill Cardiology at [facility] Lali Vu Medication Refill [facility] [place] [address] [facility] [phone] [place], [place] [address] (Wo rk) Social History Tobacco [...] 06/16/2022 Office Visit Cardiology Gianna Lorenzana PA [facility] er Cardiology Dept [place], [place] [address] (Wo rk) Scheduled Procedures Name [...] Tad A, Understanding Action Plan [facility] Note: Formatting of this note might be d ifferent from the original. Maintain 100% adherence to Entresto twic e daily regimen documented as of this encounter Visit Diagnoses Diagnosis Chronic systolic heart failure documented in this encounter Care Teams Body Line Finisher Relationship Specialty Start Date End Date Pricila Geller APRN PCP - General Family Medicine 11/24/18 [address] [place] [address] documented as of this encounter
--- OUTSIDE RECORDS SUMMARY | 2022-05-20 07:37 | XMS_ITS | Encounter Summary ---
:1955 Author Organization [facility] [place] [address] Care Team Providers Name Role Phone BenjamínPricila marcus JOELLE Primary Care Provider Reason for Referral Diagnostic Test (Routine) - Closed Specialty Diagnoses / Procedures Referred By Contact Refer red To Contact Cardiology Diagnoses HFrEF (heart failure with reduced ejection fraction) Lali Vu [facility] Non-Inv Card Lab Procedures Echocardiogram Transthoracic([facility] or [facility]) MD Dada [facility] [place] [address] [place] [address] Referral ID Status Reason Start Date Expiration Date Visits V isits Requested Authorized [id number] Closed Specialty 06/15/2021 06/15/2022 1 1 Service Requested Encounter Details Date Type Department Care Team Description 06/15/2021 Office Visit Cardiology at [facility] Avelino Whelan HFrEF (heart failure [facility] Lali Garland MD with reduced ejection [facility] fraction) [place] [address] [place] [address] [phone] (Wo rk) Social History Tobacco Use Types [...] Sign Reading Time Taken Comments Blood Pressure 120/78 06/15/2021 3:01 PM EDT Pulse 77 06/15/2021 3:01 PM EDT Temperature - - Respiratory Rate - - Oxygen Saturation 99% 06/15/2021 3:01 PM EDT Inhaled Oxygen Concentration - - Weight 78.9 kg (174 lb) 06/15/2021 3:01 PM EDT Height 175.3 cm (5' 9) 06/15/2021 3:01 PM EDT Body Mass Index 25.7 06/15/2021 3:01 PM EDT documented in this encounter Progress Notes Avelino Whelan, Lali Garland MD - 06/15/2021 3:20 PM EDT [facility] Note Name: Cong Khan Date: 06/15/2021 Chief Complaint: HFimpEF, s/p AV/MV replacements History of Present Illness Cong Khan is a 66 y.o. 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 Seizure after ETOH in March - Recent relapse with ETOH, c/b blackout - Now on keppra, which he thinks is affecting his mood, has not renewed his rx - SOB constant (since 2009) but no worse - Cough at night time when he lays flat Review of Systems All other 12 point review of systems negative except as noted above. Past Medical History Patient Active Problem List Diagnosis ??? Acute systolic congestive heart failure Prior echo from [facility] 10/2015: EF 40-45%, mean aortic valve gradient 22mmHg [place] echo Aug 2017: EF 20-25%, DVI 0.35, ascending aorta 4.2cm, aortic arch 5.3cm Current echo [facility] 08/31/17:EF 31%, septum paradoxical motion (dys-synchrony present), [...] Valvular disease - mitral valve prolapse, repair ([place]) 11/07/09: P2 resection, sliding annuloplasty, placement of #38 Future band. - [facility] 12/01/10 : mitral valve replacement with a #33 EPIC IC procedure, tricuspid valve repair with a #32 MC3 ring, MAZE - AVR 2013. ([facility]): no records available. ??? Aneurysm of aortic arch Noted on echo at [facility] 5.3cm (08/30/2017) ??? AMS (altered mental status) ??? Chronic cough Added automatically from request for surgery [id number] ??? Heartburn Added automatically from request for surgery [id number] ??? RUQ pain Added automatically from request for surgery [id number] ??? Fecal urgency Added automatically from request for surgery [id number] ??? Dysphagia Added automatically from request for surgery [id number] ??? History of hepatitis C Added automatically from request for surgery [id number] ??? Hypertension ??? H/O mitral valve replacement with tissue graft ??? H/O aortic valve replacement with porcine valve Full Medication List Outpatient Medications Marked as Taking for the 06/15/21 encounter (Office Visit) with Lali Vu MD Medication Sig Dispense Refill ??? levETIRAcetam (Keppra) 500 mg Tablet Take 1 tablet by mouth 2 times daily. 60 tablet 12 ??? 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 TOB: Social History Tobacco Use Smoking Status Former Smoker Smokeless Tobacco Never Used ETOH: Social History Substance and Sexual Activity Alcohol Use Not Currently Comment: Former heavy daily user quit in 201306/15/2021 Illicits: Social History Substance and Sexual Activity Drug Use Not Currently ??? Types: Marijuana Comment: Former cocaine user FHx: Family History Problem Relation Age of Onset ??? Emphysema Mother ??? Hypertension Mother ??? Alcohol Use Disorder Father ??? Aneurysm Father ??? Hypertension Father ??? Substance Use Disorder Brother ??? Colorectal Cancer Neg Hx ??? Inflammatory Bowel Disease Neg Hx ??? Celiac Disease Neg Hx ??? Esophageal Cancer Neg Hx Physical Exam Vitals: 06/15/21 1501 BP: 120/78 Pulse: 77 SpO2: 99% Weight: 78.9 kg (174 lb) Height: 175.3 cm (5' 9) General: NAD Neck: JVP visible at the clavicle Cardiac: Irregular Lungs: CTAB Abdomen: Soft NT/ND Extremities: WWP w/ no significant peripheral edema Relevant Labs K: 5.1 Cre: 2.19 from 1.57 Relevant CardiacStudies ZIO 04/10: 100% burden of [...] aorta at 4.5 cm. PASP 27 mmHg. Assessment/Plan: Cong Khan is a 66 y.o. 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 Overall, from a cardiac standpoint, the patient is doing reasonably well. The most significant interval development is his relapse from sobriety. This is resulted in 2 emergency room visits and one hospitalization as well as a possible diagnosis of seizures for which he was on Keppra. Fortunately, it s ounds like he is back to maintaining sobriety. He does have a long history with alcohol use disorderbut has been sober for 7 years prior to this recent relapse. He is EKG today is somewhat concerning to me as it shows sinus rhythm with very frequent PVCs and a left bundle branch block. His Zio patch was not particularly concerning and showed predominantly atrial fibrillation. The burden of PVCs was only 3.1%. Today's EKG certainly would have a higher PVC burden than that. Therefore we will need to monitor it closely. Should his ejection fraction drop again he would certainly be a candidate for CHIEF CRUISER given his left bundle branch block but pacing could prove challenging given his underlying atrial fibrillation and ectopy. For now, given his ejection fraction of 52%, we will continue to monitor. Finally, his cough when he lays down to sleep at night has recurred. Nexium was initially effective but no longer is. We will try increasing his torsemide to 20 mg. We will check in with him later thisweek. He will certainly need repeat labs if it looks like he has been in need to continue on the higher dose. I will plan to see him back in 6 months with a TTE at that time as we will need to follow his EF andburden of ectopy quite closely. #HFimpEF: d/t valve disease, raza EF 31% in 09/06, recovered 52% in 04/10 with GDMT, current EF 52%,NYHA 2, Volume slightly hypervolemic - Beta danni: Metop succ 150mg qAM, 100mg qPM - RASi: Entresto 97/103mg BID - MRA: EF recovered p/t initiation - SGLT-2: EF recovered p/t initiation - Diuretic: Torsemide 10mg QD --> double to 20mg QD for few days to see it helps with cough at night time when he lays flat - ICD EF recovered prior to placement - TTE in 6 months #Afib: EKG today sinus rhythm with frequent PVCs and left bundle branch block at 164 ms, TSH 1.28, K5.1, Mg 0.94 DCCV/Ablation: None Rate Control: Metoprolol succinate 150 mg in the morning and 100 mg in the evening Rhythm Control: None at this time, pending PVC burden, may need to consider antiarrhythmic in the future. Anticoagulation: Apixiban 2.5mg BID #HTN: BP 120/78 - Complication(s): None to date - Antihypertensive Regimen: Metoprolol succinate, Entresto as above - ASA 81mg QD #Aortic Aneurysm: Mild -root 3.9 cm and ascending aorta 4.5 cm in 04/10 - Metoprolol succinate 150mg QD - Entresto 97/103mg BID - Statin pending LDL -for some reason the LDL was not calculated today, will try to add on and recheck at next visit - TTE monitoring RTC in 6 months with TTE This clinic visit lasted 35 minutes, of which 30 minutes were spent in direct discussion and counseling with the patient. Lali You MD MPH [facility] Attending 06/15/2021, 5:43 PM documented in this encounter Plan of Treatment Upcoming Encounters Date Type Specialty Care Team Description 06/16/2022 Laboratory Appointment Lab 06/16/2022 Office Visit Cardiology Gianna Lorenzana PA [address] [facility] [address] Cardiology Dept [place], [place] [address] (Wo rk) Scheduled Orders Name Type Priority Associated Diagnoses Order S chedule Basic Metabolic Panel Lab STAT HFrEF (heart failur e with Expected: 06/15/2021 (non-fasting) reduced ejection (Approxima te), fraction) Expires: 2020 Scheduled Procedures Name Priority Associated Diagnoses Date/Time [...] Tad A, Understanding Action Plan [facility] Note: Formatting of this note might be d ifferent from the original. Maintain 100% adherence to Entresto twic e daily regimen documented as of this encounter Procedures Procedure Name Priority Date/Time Associated Diagnosis Comme nts EKG 12-LEAD Routine 06/15/2021 3:03 PM HFrEF (heart failure R esults for this EDT with reduced ejection proced ure are in the fraction) results section . documented in this encounter Results ECHOCARDIOGRAM COMPLETE (12/02/2021 12:13 PM EST) P athologist Signature EF 50 HEARTLAB SYSTEM Specimen (Source) Anatomical Location Collection Method / Collectio n Time Received Time / Laterality Volume 12/02/2021 Narrative HEARTLAB SYSTEM - 12/02/2021 12:40 PM ES T Procedure: ?Transthoracic Echocardiogram Patient: ?PAMELA Louis ? (Age): 1955(66y) Med Rec#: ? [id number] ?Sex: ?M ? Site Loc: ? [facility] ?Ht / Wt: ??175(cm)/82(kg) Pt. Loc: ?Echo Lab ?BSA: ?1.98 Study Date: ?? 12/02/2021 ?Pt. Type: Outpatient Tape: ? Referring: BENJAMIN Reading: Aron Flores ([id number]) Kitchen Stewardess: Pamela Saleh RDCS, FASE Diagnosis: *Heart failure, [...] appears more around 40% by visual estimation tho [facility]). There is diffuse hypokinesis present. 2. The [...] cm2 (<21) ? LA ESV BP (A/L) xahd192.52 ? m l/m2 ? RA AREA 4CH [...] :22 Images reviewed and interpretation verif ied [facility] Cardiac Ultrasound Laboratory Procedure Note Aron Flores MD - 12/02/2021Formattin g of this note might be different from the original. Procedure: Transthoracic Echocardiogram Patient: PAMELA HUTTON(Age): [birth year](66y) Med Rec#: [id number] Sex: M Site Loc: [facility] Ht / Wt: 175(cm)/82(kg) Pt. Loc: Echo Lab BSA: 1.98 Study Date: 12/02/2021 Pt. Type: Outpati ent Tape: Referring: BENJAMIN Reading: Aron Flores ([id number]) Kitchen Stewardess: Pamela Saleh RDCS, FASE Diagnosis: *Heart failure, unspecified (I50.9) BP: 106/62 HR: 74 SUMMARY: 1. The left ventricular chamber size is normal. Moderate concentric left ventricular hypertrophy is observed. Deja bal left ventricular systolic function is mildly reduced. The quantita tive left ventricular ejection fraction by biplane Walker's method is 50% (in short axis views appears more around 40% by visual estimation tho [facility]). There is diffuse hypokinesis present. 2. The [...] 43 cm2 (<21) LA ESV BP (A/L) mmre780.52 ml/m2 RA AREA 4CH 24 cm2 LA [...] 12:40:22 Images reviewed and interpretation verif ied [facility] Cardiac Ultrasound Laboratory Lali Whelan MD ECHO ORDERABLES Performing Organization Address City/State/ZIP Code Phon e Number HEARTLAB SYSTEM EKG 12 Lead (06/15/2021 3:03 PM EDT) Component Value Ref Range Test Analysis Performed Pathologis t Method Time At Signature Ventricular rate 82 BPM MUSE SYSTEM Atrial Rate 82 BPM MUSE SYSTEM P-R Interval 148 ms MUSE SYSTEM QRS Duration 164 ms MUSE SYSTEM Q-T Interval 426 ms MUSE SYSTEM QTC Calculated 497 ms MUSE SYSTEM (Bezet) Calculated R [place] -63 degrees MUSE SYSTEM Calculated T [place] -14 degrees MUSE SYSTEM INTERPRETATION Sinus rhythm with frequent Premature ventricular compl exes MUSE SYSTEM Left axis deviation Left bundle branch block Abnormal ECG When compared with ECG of 24-MAR-2021 16:58, No significant change was found I personally reviewed the tracing and edited the fellows int erpretation Confirmed by fellow MD Yamile, Delvis ([id number]) on 06/16/2021 1: 54:20 PM Confirmed by MD EMMANUEL, MARIVEL ([id number]) on 06/16/2021 4:41:42 PM Specimen Anatomical Collection Method Collection Time Receive d Time (Source) Location / / Volume Laterality 06/15/2021 3:03 PM 1 4:41 EDT PM EDT Lali Whelan MD ECG ORDERABLES Performing Organization Address City/[facility]/ZIP Code Phon e Number MUSE SYSTEM TSH [place] (06/15/2021 2:46 PM EDT) P athologist Signature TSH 1.28 0.27 - 4.20 [facility] mcIU/mL [facility] Comment: Reference Interval (mcIU/mL): Females: ??First Trimester: 0.23-3.88 ??Second Trimester: 0.22-3.90 ??Third Trimester: 0.44-4.66 Specimen Anatomical Collection Method Collection Time Receive d Time (Source) Location / / Volume Laterality Blood 06/15/2021 2:46 PM 1 2:54 EDT PM EDT Resulting Agency Comment Spec In Lab Lali Whelan MD CHEMISTRY ORDERABLES Performing Organization Address City/State/[place] [address] Magnesium (06/15/2021 2:46 PM EDT) athologist Signature Magnesium 0.94 0.69 - 1.07 [facility] mmol/L [facility] Specimen Anatomical Collection Method Collection Time Receive d Time (Source) Location / / Volume Laterality Blood 06/15/2021 2:46 PM 2:54 EDT PM EDT Resulting Agency Comment Spec In Lab Lali Whelan MD CHEMISTRY ORDERABLES Performing Organization Address City/State/[place] [address] Lipid Panel (Reflex Direct LDL) (06/15/2021 2:46 PM EDT) athologist Signature Chol, Total 177 mg/dL [facility] Comment: Lower Risk: <200 mg/dL Average Risk: 200-239 mg/dL Higher Risk: >ad=247 mg/dL Triglycerides 133 mg/dL [facility] Comment: Average Risk/Lower Risk: <150 mg/dL Borderline High Risk: 150-199 mg/dL High Risk: 200-499 mg/dL Very High Risk: >gr=223 mg/dL HDL 48 mg/dL [facility] Comment: Males: ?? Higher Risk: <40 mg/dL Females: ?? Higher Risk: <50 mg/dL LDL Cholesterol Not Calculated [facility] Comment: Lowest Risk: <100 mg/dL Lower Risk: 100-129 mg/dL Borderline High Risk: 130-159 mg/dL High Risk: 160-189 mg/dL Very High Risk: >yq=931 mg/dL Chol/HDL Ratio 3.7 ratio [facility] Lipid Interpretation See Note [facility] Comment: Lipid management should be guided by a p atient? s ASCVD risk, goals and preferences. ACC/AHA Guidelines recommend high intens ity statin if clinical ASCVD or LDL greater than or equal to 190 mg/dL. http://CyActiveurl.com/LFP-ZEO-Radqywkas Adults aged 40-75 with LDL 70-189 mg/dL should have their 10 year ASCVD risk estimated with the ACC/AHA ASCVD risk es timator http://tools.acc.org/XRSLQ-Wmeb-Jjfsmiyf r/ Statin should be discussed if risk great er than or equal to 7.5% in non-diabetics. With diabetes, moderate i ntensity statin is recommended if risk less than 7.5%, high intensity if risk g reater than or equal to 7.5%. Annual lipid monitoring on statins is no t necessary. Evaluate secondary causes of Triglycerid es greater than 500 mg/dL or LDL greater than 190 mg/dL: See table 6 of A CC/AHA Guideline. Lifestyle modification is a critical com ponent of ASCVD risk reduction. Specimen Anatomical Collection Method Collection Time Receive d Time (Source) Location / / Volume Laterality Blood 06/15/2021 2:46 PM 2:54 EDT PM EDT Resulting Agency Comment Spec In Lab Lali Whelan MD CHEMISTRY ORDERABLES Performing Organization Address City/State/[place] [address] documented in this encounter Visit Diagnoses Diagnosis HFrEF (heart failure with reduced ejecti on fraction) HFrEF (heart failure with reduced ejecti on fraction) documented in this encounter Care Teams Technical Buyer Relationship Specialty Start Date End Date Pricila Geller APRN PCP - General Family Medicine 11/24/18 [address] [place] [address] documented as of this encounter
--- OUTSIDE RECORDS SUMMARY | 2022-05-20 07:37 | XMS_ITS | Encounter Summary ---
:1955 Author Organization [facility] [place] [address] Care Team Providers Name Role Phone Pricila Geller APRN Primary Care Provider Encounter Details Date Type Department Care Team Description 03/16/2021 Refill Cardiology at [facility] Lali Vu, [facility] [place] [address] [place] [address] [place], [place] [address] (Wo rk) Social History Tobacco [...] 06/16/2022 Office Visit Cardiology Gianna Lorenzana PA [facility] er Cardiology Dept [place], [place] [address] (Wo rk) Scheduled Procedures Name [...] Tad A, Understanding Action Plan [facility] Note: Formatting of this note might be d ifferent from the original. Maintain 100% adherence to Entresto twic e daily regimen documented as of this encounter Visit Diagnoses Not on filedocumented in this encounter Care Teams Storeroom Keeper Relationship Specialty Start Date End Date Pricila Geller APRN PCP - General Family Medicine 11/24/18 [address] [place] [address] documented as of this encounter
--- OUTSIDE RECORDS SUMMARY | 2022-05-20 07:37 | XMS_ITS | Encounter Summary ---
:1955 Author Organization [facility] [place] [address] Care Team Providers Name Role Phone BenjamínPricila marcus JOELLE Primary Care Provider Encounter Details Date Type Department Care Team Description 06/15/2021 Laboratory Appointment Lab 3L [facility] Chronic systolic heart failure; [facility] HFrEF (heart failure with re duced ejection fraction) [place] [address] Social History Tobacco Use Types Packs/Day Years [...] 06/16/2022 Office Visit Cardiology Gianna Lorenzana PA [facility] Cardiology Dept [place], [place] [address] (Wo rk) Scheduled Procedures Name [...] and Facing Tad A, Understanding Action Plan [facility] Note: Formatting of this note might be d ifferent from the original. Maintain 100% adherence to Entresto twic e daily regimen documented as of this encounter Procedures Procedure Name Priority Date/Time Associated Comments Diagnosis HC THYROID STAT 06/15/2021 2:46 PM HFrEF (heart Results f or this STIMULATING HORMONE, EDT failure with procedu re are in SERUM reduced ejection the results fraction) section. HC MAGNESIUM, SERUM STAT 06/15/2021 2:46 PM HFrEF (heart Re sults for this EDT failure with procedure are i n reduced ejection the results fraction) section. LIPID PANEL (REFLEX STAT 06/15/2021 2:46 PM HFrEF (heart Re sults for this DIRECT LDL) EDT failure with procedure are i n reduced ejection the results fraction) section. HC VENIPUNCTURE Routine 06/15/2021 2:46 PM Chronic systolic Re sults for this EDT heart failure procedure are in the results section. documented in this encounter Results Lipid Panel (Reflex Direct LDL) (06/15/2021 2:46 PM EDT) athologist Signature Chol, Total 177 mg/dL [facility] Comment: Lower Risk: <200 mg/dL Average Risk: 200-239 mg/dL Higher Risk: >ae=217 mg/dL Triglycerides 133 mg/dL [facility] Comment: Average Risk/Lower Risk: <150 mg/dL Borderline High Risk: 150-199 mg/dL High Risk: 200-499 mg/dL Very High Risk: >gm=750 mg/dL HDL 48 mg/dL [facility] Comment: Males: ?? Higher Risk: <40 mg/dL Females: ?? Higher Risk: <50 mg/dL LDL Cholesterol Not Calculated [facility] Comment: Lowest Risk: <100 mg/dL Lower Risk: 100-129 mg/dL Borderline High Risk: 130-159 mg/dL High Risk: 160-189 mg/dL Very High Risk: >st=198 mg/dL Chol/HDL Ratio 3.7 ratio [facility] Lipid Interpretation See Note [facility] Comment: Lipid management should be guided by a p atient? s ASCVD risk, goals and preferences. ACC/AHA Guidelines recommend high intens ity statin if clinical ASCVD or LDL greater than or equal to 190 mg/dL. http://MakerBot.com/JYD-DEK-Huenleydd Adults aged 40-75 with LDL 70-189 mg/dL should have their 10 year ASCVD risk estimated with the ACC/AHA ASCVD risk es timator http://tools.acc.org/PZMGZ-Gube-Cxwwpxoh r/ Statin should be discussed if risk [...] Whelan MD CHEMISTRY ORDERABLES Performing Organization Address City/[facility]/[place] [address] Magnesium (06/15/2021 2:46 PM EDT) athologist Signature Magnesium 0.94 0.69 - 1.07 [facility] mmol/L [facility] Specimen Anatomical Collection Method Collection Time Receive d Time (Source) Location / / Volume Laterality Blood 06/15/2021 2:46 PM 1 2:54 EDT PM EDT Resulting Agency Comment Spec In Lab Lali Whelan MD CHEMISTRY ORDERABLES Performing Organization Address City/[facility]/[place] [address] [facility] [place] (06/15/2021 2:46 PM EDT) athologist Signature TSH 1.28 0.27 - 4.20 [facility] mcIU/mL [facility] Comment: Reference Interval (mcIU/mL): Females: ??First Trimester: 0.23-3.88 ??Second Trimester: 0.22-3.90 ??Third Trimester: 0.44-4.66 Specimen Anatomical Collection Method Collection Time Receive d Time (Source) Location / / Volume Laterality Blood 06/15/2021 2:46 PM 2:54 EDT PM EDT Resulting Agency Comment Spec In Lab Lali Whelan MD CHEMISTRY ORDERABLES Performing Organization Address City/State/ZIP Code Phon e Number [address] (ABNORMAL) Basic Metabolic Panel (non-fasting) (06/15/2021 2:46 PM EDT) athologist [facility] Glucose Lvl 100 65 - 199 [facility] mg/dL [facility] Comment: Diabetes: >=200 mg/dL plus symp toms BUN 33 (H) 10 - 20 mg/dL [facility] Creatinine 2.19 (H) 0.80 - 1.50 mg/dL [facility] Sodium 139 135 - 145 mmol/L [facility] Potassium 5.1 (H) 3.5 - 5.0 mmol/L [facility] Comment: Please note: ??Patients with WBC >100,00 0 may have falsely elevated Potassium levels. ??For accurate Potassium quantif ication in these patients send serum separator tube (gold top) for subsequent determinations. ??Contact the Clinical Chemistry Laboratory if there are any qu estions. Chloride 105 98 - 107 mmol/L [facility] CO2 25 22 - 31 mmol/L [facility] Anion Gap 9 5 - 15 mmol/L [facility] Calcium 9.3 8.5 - 10.5 mg/dL [facility] Estimated GFR 30 (L) >=60 mL/min/1.73 m?? [facility] Comment: This patient? s estimated glomerular filtration rate (eGFR) is between 30 mL/min/1.73 m2 (patients with less muscl e mass per kg body weight) and 35 mL/min/1.73 m2 (patients with more muscl e [...] Organization Address City/State/[place] [address] documented in this encounter Visit Diagnoses Diagnosis Chronic systolic heart failure HFrEF (heart failure with reduced ejecti on fraction) documented in this encounter Care Teams Emergency Vehicle Dispatcher Relationship Specialty Start Date End Date Pricila Geller APRN PCP - General Family Medicine 11/24/18 [place] [address] documented as of this encounter
--- OUTSIDE RECORDS SUMMARY | 2022-05-20 07:37 | XMS_ITS | Encounter Summary ---
:1955 Author Organization [facility] Address [address] [place] [address] Care Team Providers Name Role Phone Pricila Geller [employer] Primary Care Provider Encounter Details Date Type Department Care Team Description 03/24/2021 Ancillary Procedure [place] [address] Social History Tobacco Use Types Packs/Day [...] Cardiology Gianna Lorenzana PA [facility] Cardiology Dept [place], [place] [address] (Wo rk) Scheduled Procedures Name [...] and Facing Tad A, Understanding Action Plan [facility] Note: Formatting of this note might be d ifferent from the original. Maintain 100% adherence to Entresto twic e daily regimen documented as of this encounter Procedures Procedure Name Priority Date/Time Associated Diagnosis Comme nts FILM LIBRARY Routine 03/24/2021 9:06 AM Results f or this STORAGE ONLY CT EDT procedure ar e in HEAD the results section. documented in this encounter Results Film Library- Storage Only CT Head (03/24/2021 9:06 AM EDT) Specimen (Source) Anatomical Location Collection Method / Collectio n Time Received Time / Laterality Volume Narrative [facility] - 03/24/2021 9:06 AM EDT This exam is auto-finalizing. It's purpo se is for storage only. Chanel Zuleta MD IMG FILM LIBRARY ORDERABLES Performing Organization Address City/State/ZIP Code Phon e Number [place], [place] documented in this encounter Visit Diagnoses Not on filedocumented in this encounter Care Teams Hygiene Assistant Relationship Specialty Start Date End Date Pricila Geller APRN PCP - General Family Medicine 11/24/18 [address] [place] [address] documented as of this encounter
--- OUTSIDE RECORDS SUMMARY | 2022-05-20 07:37 | XMS_ITS | Encounter Summary ---
:1955 [place] [address] Care Team Providers Name Role Phone Pricila Geller SALES ACCOUNT ASSOCIATE Primary Care Provider Reason for Visit Auth/Cert Specialty Diagnoses / Procedures Referred By Contact Refer red To Contact Diagnoses Atrial fibrillation, unspecified type AMS (altered mental status) Referral ID Status Reason Start Date Expiration Date Visits Requ ested Visits Authorized [id number] 1 1 Encounter Details Date Type Department Care Team Description 03/25/2021 Hospital Encounter Non-[place] [address] Social History Tobacco Use Types Packs/Day [...] Gianna Lorenzana PA [facility] Cardiology Dept [place], [place] [address] (Wo rk) Scheduled Procedures Name [...] and Facing Tad A, Understanding Action Plan [facility] Note: Formatting of this note might be d ifferent from the original. Maintain 100% adherence to Entresto twic e daily regimen documented as of this encounter Procedures Procedure Name Priority Date/Time Associated Comments Diagnosis ECHOCARDIOGRAM COMPLETE Routine 03/25/2021 3:39 Atrial R esults for this PM EDT fibrillation, procedure are in unspecified type the results section. documented in this encounter Results ECHOCARDIOGRAM COMPLETE (03/25/2021 3:39 PM EDT) P athologist Signature EF 52 [facility] Specimen (Source) Anatomical Location Collection Method / Collectio n Time Received Time / Laterality Volume 03/25/2021 Narrative [facility] - 03/25/2021 4:00 PM EDT Procedure: ?Transthoracic Echocardiogram Patient: ?PAMELA Louis ? (Age): 1955(66y) Med Rec#: ? [id number] ?Sex: ?M ? Site Loc: ? [facility] ?Ht / Wt: ??175(cm)/80(kg) Pt. Loc: ?Adult Floor ? BSA: ?1.96 Study Date: ?? 03/25/2021 ?Pt. Type: Inpatient Tape: ? Referring: TIM JORDAN J Reading: Robert Guerra ([id number]) [place] Pumper: Jose Flores, [facility] [place] Pumper 2: Latoya Hernandez Diagnosis: *Unspecified atrial fibrillation [...] ? cm2 ? LA ESV BP (MOD) moml505.25 ? m l/m2 ? LV ESV SP [...] ? Mid-Inferior ?Normal ? Mid-Inferoseptal ?Normal ? Chamberlain-Septal ? Normal ? Chamberlain-Anterior ? Normal ? Chamberlain-Lateral ?Normal ? [place]-Inferior ? Normal ? [place]-Tip ?Normal ? This report has been electronically sign ed by: _ Robert Guerra MD ? 03/25/2021 16 :00:24 Images reviewed and interpretation [facility] Cardiac Ultrasound Laboratory Procedure Note Robert Guerra MD - 03/25/2021Formatt ing of this note might be different from the original. Procedure: Transthoracic Echocardiogram Patient: PAMELA Louis (Age): [birth year](66y) Med Rec#: [id number] Sex: M Site Loc: [facility] Ht / Wt: 175(cm)/80(kg) Pt. Loc: Adult Floor BSA: 1.96 Study Date: 03/25/2021 Pt. Type: Inpatie nt Tape: Referring: TIM JORDAN J Reading: Robert Guerra ([id number]) [place]: Jose Flores, [facility] [place] 2: Latoya Hernandez Diagnosis: *Unspecified atrial fibrillation [...] 4CH 26 cm2 LA ESV BP (MOD) [id number] ml/m2 LV ESV SP 4CH (MOD) 104 [...] Normal Mid-Posterolateral Normal Mid-Inferior Normal Mid-Inferoseptal Normal Chamberlain-Septal Normal Chamberlain-Anterior Normal Chamberlain-Lateral Normal Chamber[place]-Inferior Normal Chamber[place]-Tip Normal This report has been electronically sign ed by: _ Robert Guerra MD 03/25/2021 16:00:24 Images reviewed and interpretation verif ied [facility] Cardiac Ultrasound Laboratory Taryn Niño APRN ECHO ORDERABLES Performing Organization Address City/State/ZIP Code Phon e Number [facility] documented in this encounter Visit Diagnoses Not on filedocumented in this encounter Care Teams Keying Machine Operator Relationship Specialty Start Date End Date Pricila Geller APRN PCP - General Family Medicine 11/24/18 [address] [place] [address] documented as of this encounter
--- OUTSIDE RECORDS SUMMARY | 2022-05-20 07:37 | XMS_ITS | Encounter Summary ---
:1955 Author Organization [facility] Address [address] [place] [address] Care Team Providers Name Role Phone Pricila Geller FUR CLEANER Primary Care Provider Encounter Details Date Type Department Care Team Description 03/24/2021 Ancillary Procedure [place] [address] Social History Tobacco Use Types Packs/Day [...] 06/16/2022 Office Visit Cardiology Gianna Lorenzana PA [facility] Cardiology Dept [place], [place] [address] (Wo rk) Scheduled Procedures Name [...] Diagnosis Comme nts FILM LIBRARY Routine 03/24/2021 9:07 AM Results f or this STORAGE ONLY DX EDT procedure ar e in CHEST the results section. documented in this encounter Results Film Library- Storage Only DX Chest (03/24/2021 9:07 AM EDT) Specimen (Source) Anatomical Location Collection Method / Collectio n Time Received Time / Laterality Volume Narrative [facility] - 03/24/2021 9:07 AM EDT This exam is auto-finalizing. It's purpo se is for storage only. Chanel Zuleta MD IMG FILM LIBRARY ORDERABLES Performing Organization Address City/State/ZIP Code Phon e Number [place], [place] documented in this encounter Visit Diagnoses Not on filedocumented in this encounter Care Teams Genetic Technologist Relationship Specialty Start Date End Date Pricila Geller APRN PCP - General Family Medicine 11/24/18 [address] [place] [address] documented as of this encounter
--- OUTSIDE RECORDS SUMMARY | 2022-05-20 07:37 | XMS_ITS | Encounter Summary ---
:1955 Author Organization [facility] Address [address] [place] [address] Care Team Providers Name Role Phone Pricila Geller APRN Primary Care Provider Reason for Visit Reason Onset Date Comments Questions 03/13/2021 needs multiple teeth extractions Encounter Details Date Type Department Care Team Description 03/13/2021 Telephone Cardiology at [facility] Prisca Russ, Questions (needs [facility] RN multiple teeth Drive extractions) [place] [address] Social History Tobacco Use Types Packs/Day [...] Telephone Encounter - Prisca Russ RN - 03/18/2021 5:36 PM EDT Pt contacted with the following response from Dr You: Not for teeth pull I don't think unless there's something else. No further questions at this time. Telephone Encounter - Prisca Russ RN - 03/13/2021 1:03 PM EDT Pt calling to get advice/direction from Dr You about who at he could see to get this done ordoes he need to get done at ? He is looking at up to 4 or more teeth to be pulled. He is going to call ENT to see if he needs a referral and if he does, will have his PCP put in the referral. He may need the referral to come from Dr You, if he needs to have this done at for cardiac precautions. documented in this encounter Plan of Treatment Upcoming Encounters Date Type Specialty Care Team Description 06/16/2022 Laboratory Appointment Lab 06/16/2022 Office Visit Cardiology Gianna Lorenzana PA [facility] Cardiology Dept [place], [place] [address] (Wo rk) Scheduled Procedures Name [...] Problems Progress Home Medication Patient No Daniela n, Compliance and Facing Tad A, Understanding Action Plan [facility] Note: Formatting of this note might be d ifferent from the original. Maintain 100% adherence to Entresto twic e daily regimen documented as of this encounter Visit Diagnoses Not on filedocumented in this encounter Care Teams Head Miller Relationship Specialty Start Date End Date Pricila Geller APRN PCP - General Family Medicine 11/24/18 [facility] [address] documented as of this encounter
--- OUTSIDE RECORDS SUMMARY | 2022-05-20 07:37 | XMS_ITS | Encounter Summary ---
:1955 Author Organization [facility] [place] [address] Care Team Providers Name Role Phone BenjamínPricila marcus APRN Primary Care Provider Encounter Details Date Type Department Care Team Description 03/20/2021 Orders Only Cardiology at [facility] Avelino Whelan, Chronic systolic heart [facility] [place] [address] [place] [address] [phone] (Wo rk) Social History Tobacco Use Types [...] Cardiology Gianna Lorenzana PA [facility] Cardiology Dept [place], [place] [address] (Wo rk) Scheduled Procedures Name [...] Problems Progress DH Home Medication Patient No Arelyfan n, Compliance and Facing Tad A, Understanding Action Plan [facility] Note: Formatting of this note might be d ifferent from the original. Maintain 100% adherence to Entresto twic e daily regimen documented as of this encounter Results (ABNORMAL) Basic Metabolic Panel (non-fasting) (06/15/2021 2:46 PM EDT) athologist Signature Glucose Lvl 100 65 - 199 [facility] mg/dL [facility] Comment: Diabetes: >=200 mg/dL plus symp toms BUN 33 (H) 10 - 20 mg/dL [facility] Creatinine 2.19 (H) 0.80 - 1.50 mg/dL [facility] Sodium 139 135 - 145 mmol/L [facility] Potassium 5.1 (H) 3.5 - 5.0 mmol/L [facility] Comment: Please note: ??Patients with WBC >100,00 0 may have falsely elevated Potassium levels. ??For accurate Potassium quantif ication in these patients send serum separator tube (gold top) for subsequent determinations. ??Contact the Clinical Chemistry Laboratory if there are any qu estions. Chloride 105 98 - 107 mmol/L [facility] CO2 25 22 - 31 mmol/L [facility] Anion Gap 9 5 - 15 mmol/L [facility] Calcium 9.3 8.5 - 10.5 mg/dL [facility] Estimated GFR 30 (L) >=60 mL/min/1.73 m?? [facility] Comment: This patient? s estimated [...] Organization Address City/State/[place] [address] documented in this encounter Visit Diagnoses Diagnosis Chronic systolic heart failure documented in this encounter Care Teams Court Magistrate Relationship Specialty Start Date End Date Pricila Geller APRN PCP - General Family Medicine 11/24/18 [address] [facility] [place] [address] documented as of this encounter
--- OUTSIDE RECORDS SUMMARY | 2022-05-20 07:37 | XMS_ITS | Encounter Summary ---
:1955 Author Organization [facility] [place] [address] Care Team Providers Name Role Phone Pricila Geller APRN Primary Care Provider Encounter Details Date Type Department Care Team Description 06/24/2021 Office Visit Neurology at [facility] [place] Rohini Meng MD [facility] [place] [address] Altered mental status, unspecified alter ed mental status type; [facility] Mike Chapman MD [facility] [address] Cerebral [place] [address] Social History Tobacco Use Types Packs/Day Years [...] Sign Reading Time Taken Comments Blood Pressure 126/71 06/24/2021 1:16 PM EDT Pulse 54 06/24/2021 1:16 PM EDT Temperature - - Respiratory Rate - - Oxygen Saturation - - Inhaled Oxygen Concentration - - Weight 81.7 kg (180 lb 3.2 06/24/2021 1:16 PM without s hoes on oz) EDT Height 175.3 cm (5' 9) 06/24/2021 1:16 PM reported EDT Body Mass Index 26.61 06/24/2021 1:16 PM EDT documented in this encounter Progress Notes Mike Chapman MD - 06/24/2021 1:30 PM EDT Neurology Outpatient Clinic - 06/24/2021 Patient name: Cong Khan Date of : 1955 PCP: Pricila Geller APRN Clinic Attending: Dr. Meng CC: [facility] HPI: Cong Khan is a 66 y.o. male with pmhx of??Hepatitis C (s/p treatment with Harvoni), mitral valve prolapse s/p mitral valve??repair x1 and??replacement x2, aortic valve replacement, HTN, CHF, A. 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 He is presenting to neurology clinic for [facility]. HPI From 03/25/21: Yesterday morning he was feeling tired and did not feel like going to work. He then went to work andaround 1300 he said he had a headache and drank coffee and the headache went away. He went about hisday and did not take any tylenol/ibuprofen. He was watching [employer] last night and they had dinner & he took a nap in front of the TV. After waking up he finished his movie??she had asked him to come to bed and she went upstairs but forgot she left the wood stove on.? When she went downstairs she noticed he [...] chronic weakness of the right legfrom vascular issues.??Denies recent fevers, chills etc. Interval Hx: - Since his hospitalization they've figured out the reason for his AMS and stopped his Keppra. In late April he was hospitalized for AMS again but it was after drinking half a bottle of wine and other alcohols. This was unknown to his at the time but he then confessed his alcoholism. He has not had any alcohol since then. He's not sure exactly how much alcohol he was drinking but it was at least 6 hard ciders a day. - He stopped the Keppra in mid/early April and has been off since then. - He felt that the Keppra was bogging him down and making him feel not right. - Has had RLE weakness and numbness since he had a hematoma 10 years ago after a cath. Past Medical & Surgical History: Past Medical [...] Joint Aspiration Large Right 06/19/2019 Latonia Caraballo, MEDICAL RECORDS CUSTODIAN [facility] RAD XRAY Home Medications: Current Outpatient Medications on File Prior to Visit Medication Sig Dispense Refill ??? torsemide (Demadex) 10 mg Tablet Take 1 tablet by mouth daily. (Patient taking differently: Take20 mg by mouth daily.) 90 tablet 3 ??? sacubitriL-valsartan (Entresto) 97-103 mg Tablet tablet Take 1 tablet by mouth 2 times daily. 60tablet 3 ??? cholecalciferol, Vitamin D3, (D3-2000) 50 [...] mg by mouth daily. 30 tablet 3 ??? levETIRAcetam (Keppra) 500 mg Tablet Take 1 tablet by mouth 2 times daily. (Patient not taking: Reported on 06/24/2021) 60 tablet 12 ??? [DISCONTINUED] esomeprazole (NexIUM) 20 mg Capsule, Delayed Release(E.C.) Take 1 capsule by mouth 2 times daily. (Patient not taking: Reported on 06/24/2021) 180 capsule 3 No current facility-administered medications on file prior to visit. Allergy: No Known Allergies Family History: Family History Problem Relation Age of Onset ??? Emphysema Mother ??? Hypertension Mother ??? Alcohol Use Disorder Father ??? Aneurysm Father ??? Hypertension Father ??? Substance Use Disorder Brother ??? Colorectal Cancer Neg Hx ??? Inflammatory Bowel Disease Neg Hx ??? Celiac Disease Neg Hx ??? Esophageal Cancer Neg Hx Social History: EtOH: stopped since 05/16/21 Social History Socioeconomic History ??? Marital status: Single Spouse name: Not on file ??? Number of children: Not on file ??? Years of education: Not on file ??? Highest education level: Not on file Occupational History ??? Not on file Tobacco Use ??? Smoking status: Former Smoker ??? Smokeless tobacco: Never Used Vaping Use ??? Vaping Use: Never used Substance and Sexual Activity ??? Alcohol use: Not Currently Comment: Former heavy daily user quit in 2013 ??? Drug use: Not Currently Comment: Former cocaine user ??? Sexual activity: [...] Week: ??? Minutes of Exercise per Session: Review of systems, positive findings are BOLDED: GEN: fever, chills, fatigue, night sweats, unexpected weight change, anorexia. HEENT: Change in vision, hearing, smell, taste; rhinorrhea CV: chest pain, palpitations, orthopnea, paroxysmal noctural dyspnea, claudication PULM: dyspnea, cough, wheezing, sputum production ABD: abdominal pain, dysphagia, nausea, vomiting, diarrhea, constipation, melena, hematochezia. : dysuria, hematuria NEURO: anesthesia, paresthesia, asymmetric weakness, headache, photophobia, phonophobia. SKIN: rashes, ulcers HEM: bleeding, bruising MSK: arthralgia, arthritis, myalgia, PSYCH: depressed mood, anhedonia, anxiety Otherwise 11 systems are reviewed and negative. Vitals: Patient Vitals for the past 24 hrs: Pulse BP 06/24/21 1316 54 126/71 Physical Exam: Gen: Patient of apparent stated age, well nourished, well developed, in NAD Neck: Supple Resp: Normal WOB Ext: No edema, no bony deformity Neuro Exam: MS: AAOx3 Clear language without expressive or receptive aphasia No dysarthria CN: PERRL, EOMI No facial asymmetry Hearing intact to voice Palate elevates symmetrically, tongue protrudes midline SCM and trap strength intact Motor: Normal bulk and tone. No pronator drift b/l UE: 5/5 R 5/5 L Arm abduction at shoulder 5/5 R 5/5 L Elbow extension 5/5 R 5/5 L Elbow flexion 5/5 R 5/5 L Finger extension 5/5 R 5/5 L Dairy Farmworker LE: 5/5 R 5/5 L Hip flexion 5/5 R 5/5 L Knee extension 5/5 R 5/5 L Knee flexion 5/5 R 5/5 L Foot dorsiflexion Sensation: Decreased sensation over medial aspect of RLE Reflexes: DTRs 2+ R 2+ L Biceps 2+ R 2+ L Brachioradialis 0 R 2+ L Patellar Coordination: Finger to nose intact with no dysmetria Finger tapping smooth and symmetric Heel-knight intact BL No tremor at rest or with motion Gait: Not assessed Labs: CBC: No results for input(s): WBC, HGB, HCT, PLATELET, NEUTROABS in the last 168 hours. Chemistry: Recent Labs 06/15/21 1446 03/25/21 0111 03/24/21 1111 01/09/21 1314 NA 139 139 135 139 K 5.1* 4.2 4.0 4.2 CL 105 104 101 104 CO2 25 19* 22 26 BUN 33* 33* 31* 33* CREATININE 2.19* 1.57* 1.81* 1.57* GLUCOSE 100 -- 82 87 ANIONGAP 9 16* 12 9 Recent Labs 06/15/21 1446 03/25/21 0111 03/24/21 1111 CALCIUM 9.3 9.1 9.1 8.3* MAGNESIUM 0.94 0.93 -- PHOS -- 3.3 -- LFT's: Recent Labs 03/25/21 0111 03/24/21 1111 01/09/21 1314 BILITOT 0.6 0.2 0.5 BILIDIR 0.2 0.1 -- ALBUMIN 4.2 3.7 4.6 ALKPHOS 43 38* 39* ALT 12 8 7 AST 17 13 14 Coags: No results for input(s): PT, INR, PTT, FIBRINOGEN, DDIMER in the last 168 hours. Invalid input(s): THROMBIN TIME Cardiac enzymes: Recent Labs 03/24/21 1111 10/24/20 1324 TROPONINT <0.01 -- PROBNP -- 1,369* Endocrine: Recent Labs 06/15/21 1446 03/24/21 1111 01/09/21 1314 TSH 1.28 0.98 1.75 Recent Labs 03/25/21 0111 HA1C 5.2 Diagnostic Tests and Imaging: MRI Brain wo (03/24/21): IMPRESSION 1. No acute infarction, mass or mass effect. 2. Encephalomalacia within the superior right frontal lobe and posterior occipital lobe consistent with sequela of remote prior infarct. 3. Small foci of susceptibility related signal loss at the tirado matter white matter boundary within both cerebral hemispheres. Differential includes small microhemorrhages from chronic small vessel ischemic disease or possibly cerebral amyloid angiopathy. CT Head wo (03/24/21): IMPRESSION 1. No acute intracranial process. 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 2. 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 3. Otherwise unremarkable major arteries of the head and neck. 4. Mildly aneurysmal aortic arch. TTE (03/25/21): SUMMARY: ?? 1. The left ventricular chamber size is [...] See remainder of report for additional findings. CVEEG (03/25/21): INTERPRETATION AND CLINICAL CORRELATION This EEG is abnormal due to frequent right frontal and independent occasional left temporal slowing suggestive of underlying cerebral dysfunction of non specific etiology including known underlying structural lesion on the right. Assessment and Plan: Cong Khan is a 66 y.o. male with pmhx of??Hepatitis C (s/p treatment with Harvoni), mitral valve prolapse s/p mitral valve??repair x1 and??replacement x2, aortic valve replacement, HTN, CHF, A. 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 He is presenting to neurology clinic for hospital f/u. They have since figured out the reason for his AMS and removed the offending agent. Since he's stopped drinking he's been improving without any repeat events. He has discontinued the Keppra and there'sno compelling reason to restart this medication at this time and he likely does not need this moving forward. It still is possible that he had a seizure. Can consider further MRI or EEG if symptoms recur. Additionally, on his prior MRI he has multiple areas of prior microhemorrhages which may be consistent with a diagnosis of cerebral amyloid angiopathy. As a result, this would increase his risk of hemorrhage with all blood thinners. 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 Meng // RTC DAYTON Chapman MD Neurology PGY-4 06/24/2021 I have reviewed the resident's above history and I agree with the details as written. The assessmentand plan were formulated in discussion with me and I agree with them as documented. Rohini Meng MD documented in this encounter Miscellaneous Notes Addendum Note - Rohini Meng MD - 06/24/2021 1:30 PM EDT Addended by: ROHINI MENG on: 06/25/2021 05:23 PM Modules accepted: Level of Service documented in this encounter Plan of Treatment Upcoming Encounters Date Type Specialty Care Team Description 06/16/2022 Laboratory Appointment Lab 06/16/2022 Office Visit Cardiology Gianna Lorenzana PA [facility] er Cardiology Dept [place], [place] [address] (Wo rk) Scheduled Procedures Name [...] as of this encounter Visit Diagnoses Diagnosis Altered mental status, unspecified alter ed mental status type Cerebral amyloid angiopathy Other amyloidosis documented in this encounter Care Teams Psychosocial Rehabilitation Counselor Relationship Specialty Start Date End Date Pricila Geller APRN PCP - General Family Medicine 11/24/18 [place] [address] documented as of this encounter
--- OUTSIDE RECORDS SUMMARY | 2022-05-20 07:37 | XMS_ITS | Encounter Summary ---
:1955 Author Organization [facility] [place] [address] Care Team Providers Name Role Phone BenjamínPricila marcus JOELLE Primary Care Provider Encounter Details Date Type Department Care Team Description 09/22/2021 Notes Only [place] [address] Social History Tobacco Use Types Packs/Day Years [...] this encounter Progress Notes Tarik Cage - 09/22/2021 8:49 AM EDT Application Final Determination Patient Name: MEDINA KHAN : [id number] Insurance: MEDICARE AB Medicare Part D: YES Application Sent to Program:08/26/21 Program Name: [facility] Medication: ENTRESTO Program Phone #: Program Fax #: Pharmacy Phone #: Pharmacy Fax#: Enrollment End Date: 11/20/21 Quantity Shipped: 180 Shipping Timeframe: Ships To: PATIENT Shipping Instructions: Comments/Other: documented in this encounter Plan of Treatment Upcoming Encounters Date Type Specialty Care Team Description 06/16/2022 Laboratory Appointment Lab 06/16/2022 Office Visit Cardiology Gianna Lorenzana PA [facility] Cardiology Dept [place], [place] [address] (Wo rk) Scheduled Procedures Name [...] A, Understanding Action Plan [facility] Note: Formatting of this note might be d ifferent from the original. Maintain 100% adherence to Entresto twic e daily regimen documented as of this encounter Visit Diagnoses Not on filedocumented in this encounter Care Teams Can Slider Relationship Specialty Start Date End Date Pricila Geller APRN PCP - General Family Medicine 11/24/18 [address] [place] [address] documented as of this encounter
--- OUTSIDE RECORDS SUMMARY | 2022-05-20 07:37 | XMS_ITS | Encounter Summary ---
:1955 Author Organization [facility] [place] [address] Care Team Providers Name Role Phone Pricila Geller APRN Primary Care Provider Reason for Visit Reason Comments Medication Refill Encounter Details Date Type Department Care Team Description 05/18/2021 Specialty Pharmacy Pharmacy at [facility] [place] [address] Social History Tobacco Use Types Packs/Day Years [...] encounter Progress Notes Shellie Walker RPH - 05/18/2021 10:02 AM EDT Clinical Management Plan: Refill Specialty Pharmacy Consultation; Shellie Walker [facility] Comprehensive Medication Management (CMM) Cong Khan is a 66 y.o. (1955) male who refilled their specialty medication, Entresto , without speaking to a customer success representative from the Specialty Pharmacy. The medication was refilled on05/18/21 for a 30 day supply for $0 copay. Adherence: Gaps in fill history: no Was a change made to the Care Plan: no If yes, should the medication be held: No The specialty pharmacy staff will follow up with the patient 5-7 days prior to next refill for reminder if needed. Shellie Walker RPH 05/18/21 10:02 AM documented in this encounter Plan of Treatment Upcoming Encounters Date Type Specialty Care Team Description 06/16/2022 Laboratory Appointment Lab 06/16/2022 Office Visit Cardiology Gianna Lorenzana PA [facility] Cardiology Dept [place], [place] [address] (Wo rk) Scheduled Procedures Name [...] on filedocumented in this encounter Care Teams Rehabilitation Worker Relationship Specialty Start Date End Date Pricila Geller APRN PCP - General Family Medicine 11/24/18 [address] [place] [address] documented as of this encounter
--- OUTSIDE RECORDS SUMMARY | 2022-05-20 07:38 | XMS_ITS | Encounter Summary ---
:1955 Author Organization [facility] [place] [address] Care Team Providers Name Role Phone Pricila Geller APRN Primary Care Provider Reason for Visit Reason Onset Date Comments Medication Refill 03/07/2020 Pharmacy change Encounter Details Date Type Department Care Team Description 03/07/2020 Refill Cardiology at [facility] Avelino Whelan, Medication Refill [facility] Lali Garland MD (Pharmacy change) [facility] [place] [address] [place] [address] [phone] (Wo rk) Social History Tobacco Use Types Packs/Day Years Used Date Never Smoker Smokeless Tobacco: Never Used Alcohol Use Standard Drinks/Week Comments No 0 (1 standard drink = 0.6 oz [...] 06/16/2022 Office Visit Cardiology Gianna Lorenzana PA [facility] Cardiology Dept [place] [address] (Wo rk) Scheduled Procedures Name [...] Facing Tad A, Understanding Action Plan [facility] Note: Formatting of this note might be d ifferent from the original. Maintain 100% adherence to Entresto twic e daily regimen documented as of this encounter Visit Diagnoses Diagnosis Chronic systolic heart failure Atrial fibrillation, unspecified type documented in this encounter Care Teams Viticulture Teacher Relationship Specialty Start Date End Date Pricila Geller APRN PCP - General Family Medicine 11/24/18 [place] [address] documented as of this encounter
--- OUTSIDE RECORDS SUMMARY | 2022-05-20 07:38 | XMS_ITS | Encounter Summary ---
:1955 Author Organization [facility] [place] [address] Care Team Providers Name Role Phone Pricila Geller MORTGAGE ACCOUNTING CLERK Primary Care Provider Encounter Details Date Type Department Care Team Description 12/29/2020 Telephone [place]ology [place] [facility] [place] [place] [address] Social History Tobacco Use Types Packs/Day [...] this encounter Miscellaneous Notes Telephone Encounter - Lulu Jauregui - 12/29/2020 4:16 PM EST Cong Khan [id number] Diagnosis/Indication: dysphagia, chronic cough, heartburn, fecal urgency 1. Have you ever had a/an Upper Endoscopy & Colonoscopy before? Yes: Date probably 12 years ago If yes, did you have any problems with the procedure? No What type of sedation was used: Other: unsure 2. Do you take any Blood Thinners? Yes: Type: eliquis 3. Do you have a Pacemaker or Defibrillator device? No 4. Are you a diabetic? No 5. Do you have any Allergies to Eggs, Latex or Medications? No 6. Do you take any Oral Iron Supplements (Including multi-vitamins)? Yes (Iron) 7. Do you have a history of three or more abdominal surgeries? No 8. Have you had a problem with sedation or anesthesia? No 9. Do you have a c-pap machine or oxygen tank? Neither 10. Do you take prescription narcotic pain medications, including suboxone or methodone? No 11. Do you have a preference regarding the gender of your provider? No Preference 12. Is there any other information you would like to give us to aid in scheduling? No 13. Say to patient: You must have a responsible republican who will drive you to your procedure, stay on campus for the entire duration of your procedure, and drive you home from your procedure? *Please Verify the height and weight, and adjust if height and/or weight have changed* Estimated body mass index is 25.4 kg/m?? as calculated from the following: Height as of 12/10/20: 175.3 cm (5' 9). Weight as of 12/10/20: 78 kg (172 lb). Age:65 y.o. documented in this encounter Plan of Treatment Upcoming Encounters Date Type Specialty Care Team Description 06/16/2022 Laboratory Appointment Lab 06/16/2022 Office Visit Cardiology Gianna Lorenzana PA [facility] Cardiology Dept [place], [place] [address] (Wo rk) Scheduled Procedures Name [...] on filedocumented in this encounter Care Teams Director It Project Relationship Specialty Start Date End Date Pricila Geller APRN PCP - General Family Medicine 11/24/18 [address] [place] [address] documented as of this encounter
--- OUTSIDE RECORDS SUMMARY | 2022-05-20 07:38 | XMS_ITS | Encounter Summary ---
:1955 Author Organization [facility] [place] [address] Care Team Providers Name Role Phone Pricila Geller JOELLE Primary Care Provider Encounter Details Date Type Department Care Team Description 11/26/2020 Telephone Pharmacy at [facility] [place] [address] Social History Tobacco Use Types Packs/Day [...] this encounter Miscellaneous Notes Telephone Encounter - Cordelia Alejandro - 11/26/2020 11:58 AM EST Clinical Management Plan: Refill Specialty Pharmacy Consultation; Cordelia Alejandro Comprehensive Medication Management (CMM) Cong Khan is a 65 y.o. (1955) male who was contacted in regard to a specialty medication refill reminder. Spoke with patient regarding Entresto. A review of the medication therapy was performed. The medication was refilled as scheduled, and all medication related questions and concerns were addressed. The specialty pharmacy staff will follow up with the patient 5-7 days prior to next refill. Was a change made to the Care Plan: No Allergies and Drug intolerance: No Known Allergies Medication Reconciliation Discrepancies (compared to [facility] med list) No New medications: No New medical conditions: No New allergies: No Adherence: Any missed doses? No Are you experiencing any side effects from your medications? No Patient understands no changes to current drug regimen were made.. Cordelia Alejandro 11/26/20 11:58 AM documented in this encounter Plan of Treatment Upcoming Encounters Date Type Specialty Care Team Description 06/16/2022 Laboratory Appointment Lab 06/16/2022 Office Visit Cardiology Gianna Lorenzana PA [facility] Cardiology Dept [place], [place] [address] (Wo rk) Scheduled Procedures Name [...] Tad A, Understanding Action Plan [facility] Note: Formatting of this note might be d ifferent from the original. Maintain 100% adherence to Entresto twic e daily regimen documented as of this encounter Visit Diagnoses Not on filedocumented in this encounter Care Teams Pharmacy Billing Adjudicator Relationship Specialty Start Date End Date Pricila Geller APRN PCP - General Family Medicine 11/24/18 [address] [place] [address] documented as of this encounter
--- OUTSIDE RECORDS SUMMARY | 2022-05-20 07:38 | XMS_ITS | Encounter Summary ---
:1955 [place] [address] Care Team Providers Name Role Phone Pricila Geller APRN Primary Care Provider Reason for Visit Reason Comments Medication Management Medication Refill Encounter Details Date Type Department Care Team Description 03/11/2020 Specialty Pharmacy Pharmacy at [facility] Jason Vazquez RPH Managem ent; [place] [id number] Social History Tobacco Use Types Packs/Day Years [...] documented as of this encounter Progress Notes Jason Larios RPH - 03/11/2020 3:25 PM EDT Clinical Management Plan: Refill Specialty Pharmacy Consultation; Jason Larios RPH Comprehensive Medication Management (CMM) Cong Missy Willinghamey Mr. Cong Khan is a 65 y.o. (1955) male who was contacted in regard to a specialty medication refill reminder. Spoke with patient regarding Entresto 24-26 mg. A review of the medication therapy was performed. The medication was Refilled as scheduled, and all medication related questions and concerns were addressed. The specialty pharmacy staff will follow up with the patient 5-7 days prior to next refill. Was a change made to the Care Plan: no Assessment and Recommendations: Title Type of Medication Management: targeted medication review, chronic disease management Referred By: provider Recipient: beneficiary Provider: plan sponsor pharmacist Visit Type: [facility] [place] Method of Contact: by telephone Cognitive Ability: good Cognitive Impairment Status Verified this Year: no Allergies and Drug intolerance: No Known Allergies Medication Reconciliation Discrepancies (compared to [facility] med list) -none New medications: no New medical conditions: no New allergies: no Adherence: Medication Adherence Patient reported X missed doses in the last month: 0 Any gaps in refill history greater than 2 weeks in the last 3 months: no Demonstrates understanding of importance of adherence: yes Informant: patient Reliability of informant: reliable Provider-estimated medication adherence level: 90-100% Reasons for non-adherence: no problems identified Adherence tools used: directed education Support network for adherence: healthcare provider Confirmed plan for next specialty medication refill: delivery by pharmacy Refills needed for supportive medications: not needed Are you experiencing any side effects from your medications? no Pt understands no changes to current drug regimen were made at the appointment and that [facility] is providing recommendations (summary located at top of note) for provider review and follow up. Jason Larios RPH 03/11/20 3:28 PM documented in this encounter Plan of Treatment Upcoming Encounters Date Type Specialty Care Team Description 06/16/2022 Laboratory Appointment Lab 06/16/2022 Office Visit Cardiology Gianna Lorenzana PA [facility] Cardiology Dept [place], [place] [address] (Wo rk) Scheduled Procedures Name [...] Problems Progress DH Home Medication Patient No Johnso n, Compliance and Facing Tad A, Understanding Action Plan [facility] Note: Formatting of this note might be d ifferent from the original. Maintain 100% adherence to Entresto twic e daily regimen documented as of this encounter Visit Diagnoses Not on filedocumented in this encounter Care Teams Optical Instrument Assembler Relationship Specialty Start Date End Date Pricila Geller APRN PCP - General Family Medicine 11/24/18 [address] [place] [address] documented as of this encounter
--- OUTSIDE RECORDS SUMMARY | 2022-05-20 07:38 | XMS_ITS | Encounter Summary ---
:1955 Author Organization [facility] Address [facility] [place] [address] Care Team Providers Name Role Phone BenjamínPricila marcus JOELLE Primary Care Provider Encounter Details Date Type Department Care Team Description 01/09/2021 Laboratory Appointment Lab 3L [facility] Chronic cough; [facility] Heartburn; [facility] RUQ pain; Drive Fecal urgency; [place], [place] Dysphagia, unsp ecified type; [phone] History of hepatitis C; [phone] Chronic systoli c heart failure Social History Tobacco Use Types Packs/Day Years [...] 06/16/2022 Office Visit Cardiology Gianna Lorenzana PA [facility] er Cardiology Dept [place], [place] [address] (Wo rk) Scheduled Procedures Name [...] Priority Date/Time Associated Comments Diagnosis HC THYROID STIMULATING Routine 01/09/2021 1:14 PM Chroni c cough Results for this HORMONE, SERUM EST Heartburn procedure are in RUQ pain the results Fecal urgency section. Dysphagia, unspecified type History of hepatitis C HEMOGRAM Routine 01/09/2021 1:14 PM Chronic cough Results for this EST Heartburn procedure are in RUQ pain the results Fecal urgency section. Dysphagia, unspecified type History of hepatitis C DIFFERENTIAL, Routine 01/09/2021 1:14 PM Chronic cough Results for this AUTOMATED EST Heartburn procedure are in RUQ pain the results Fecal urgency section. Dysphagia, unspecified type History of hepatitis C HC VENIPUNCTURE Routine 01/09/2021 1:14 PM Chronic cough Results for this EST Heartburn procedure are in RUQ pain the results Fecal urgency section. Dysphagia, unspecified type History of hepatitis C HC CBC,PLT & AUTO DIFF Routine 01/09/2021 1:14 PM Chroni c cough EST Heartburn RUQ pain Fecal urgency Dysphagia, unspecified type History of hepatitis C HC IGA, SERUM Routine 01/09/2021 1:14 PM Chronic cough Results for this EST Heartburn procedure are in RUQ pain the results Fecal urgency section. Dysphagia, unspecified type History of hepatitis C HC IGG, SERUM Routine 01/09/2021 1:14 PM Chronic cough Results for this EST Heartburn procedure are in RUQ pain the results Fecal urgency section. Dysphagia, unspecified type History of hepatitis C COMPREHENSIVE Routine 01/09/2021 1:14 PM Chronic cough Results for this METABOLIC PANEL EST Heartburn procedure are in (NON-FASTING) RUQ pain the results Fecal urgency section. Dysphagia, unspecified type History of hepatitis C documented in this encounter Results (ABNORMAL) Differential, Automated (01/09/2021 1:14 PM EST) [facility] Signature Neutrophils % 68.2 % [facility] LABORATORY Neutr Abs (ANC) 2.96 1.70 - [facility] 6.10 [facility] x10(3)/[facility] LABORATORY Lymphocytes % 19.6 % [facility] Lymphocytes Abs 0.8 (L) 0.9 - 3.2 [facility] x10(3)/[facility] LABORATORY Monocytes % 8.5 % [facility] Monocyte Abs 0.4 0.3 - 0.9 [facility] x10(3)/[facility] LABORATORY Eosinophils % 2.5 % [facility] Eosinophils Abs 0.1 0.0 - 0.4 [facility] x10(3)/[facility] LABORATORY Basophils % 0.7 % [facility] Basophils Abs 0.0 0.0 - 0.1 [facility] x10(3)/[facility] LABORATORY Immature Gran % 0.50 % [facility] Comment: Immature granulocytes(IG's)percentage an d absolute count will include metamyelocytes, myelocytes, and promyelo cytes. Blood smears from CBCs yielding IG's will be scanned manually for concor dance. If this scan disagrees with the automated IG or if promyelocytes are not ed, a manual differential will be performed. Cassie Gran Abs 0.02 0.00 - 0.04 x10(3)/[facility] LABORATORY Specimen Anatomical Collection Method Collection Time Receive d Time (Source) Location / / Volume Laterality Blood specimen 01/09/2021 1:14 PM 021 1:27 (specimen) EST PM EST Resulting Agency Comment Spec In Lab Edwin Grubbs APRN HEMATOLOGY ORDERABLES Performing Organization Address City/State/[place] [address] (ABNORMAL) Hemogram (01/09/2021 1:14 PM EST) Analysis Performed At [facility] logist Time Signature WBC 4.3 4.0 - 9.5 [facility] x10(3)/[facility] LABORATORY RBC 4.45 (L) 4.58 - [facility] 5.54 [facility] x10(6)/[facility] LABORATORY Hemoglobin 13.9 13.7 - [facility] 16.5 gm/dL [facility] LABORATORY Hematocrit 42.3 40.5 - [facility] 48.5 % [facility] LABOR[facility] MCV 95.1 (H) 82.9 - [facility] 93.1 [facility] LABORATORY MCH 31.2 27.5 - CHANDAN JACKSON 32.1 pg [facility] LABORATORY MCHC 32.9 32.0 - [facility] 35.7 gm/dL [facility] LAB[facility] Platelets 165 145 - 357 [facility] x10(3)/[facility] LABORATORY RDWSD 43.8 36.0 - [facility] 45.0 [facility] LABORATORY RDWCV 12.5 11.4 - [facility] 13.8 % [facility] LABORATORY MPV 10.4 7.6 - 12.9 [facility] LABORATORY nRBC % Auto 0.0 % [facility] LABORATORY nRBC Abs Auto 0.000 0.000 - [facility] 0.000 [facility] x10(3)/[facility] LABORATORY Specimen Anatomical Collection Method Collection Time Receive d Time (Source) Location / / Volume Laterality Blood specimen 01/09/2021 1:14 PM 021 1:27 (specimen) EST PM EST Resulting Agency Comment Spec In Lab Edwin Grubbs APRN HEMATOLOGY ORDERABLES Performing Organization Address City/State/[place] [address] (ABNORMAL) Comprehensive metabolic panel (non-fasting) (01/09/2021 1:14 PM EST) P athologist Signature Glucose Lvl 87 65 - 199 [facility] mg/dL [facility] Comment: Diabetes: >=200 mg/dL plus symp toms BUN 33 (H) 10 - 20 mg/dL [facility] LABORATORY Creatinine 1.57 (H) 0.80 - 1.50 mg/dL [facility] Sodium 139 135 - 145 mmol/L [facility] LABORATORY Potassium 4.2 3.5 - 5.0 mmol/L [facility] LABORATORY Comment: Please note: ??Patients with WBC >100,00 0 may have falsely elevated Potassium levels. ??For accurate Potassium quantif ication in these patients send serum separator tube (gold top) for subsequent determinations. ??Contact the Clinical Chemistry Laboratory if there are any qu estions. Chloride 104 98 - 107 mmol/L [facility] LAB[facility] CO2 26 22 - 31 mmol/L [facility] Anion Gap 9 5 - 15 mmol/L [facility] LABORATORY Calcium 10.0 8.5 - 10.5 mg/dL [facility] LABORATORY Total Protein 7.4 6.1 - 8.0 gm/dL [facility] LABORATORY Albumin 4.6 3.2 - 5.2 gm/dL [facility] LAB[facility] AST 14 0 - 39 unit/L [facility] LAB[facility]ORY ALT 7 0 - 55 unit/L [facility] Alk Phos 39 (L) 40 - 130 unit/L [facility] LAB[facility] Total Bilirubin 0.5 0.2 - 1.3 mg/dL [facility] LABORATORY Estimated GFR 45 (L) >=60 mL/min/1.73 m?? [facility] Comment: This patient? s estimated [...] be advised. Assignment of CKD stage 1 ? 5 for patients with an eGFR near the transition point between stages may be based on cli nical assessment of muscle mass and symptoms in addition to eGFR. Specimen Anatomical Collection Method Collection Time Receive d Time (Source) Location / / Volume Laterality Blood specimen 01/09/2021 1:14 PM 021 1:27 (specimen) EST PM EST Resulting Agency Comment Spec In Lab Edwin Grubbs APRN CHEMISTRY ORDERABLES Performing Organization Address City/State/ZIP Code Phon e Number [address] TSH [place] (01/09/2021 1:14 PM EST) athologist Signature TSH 1.75 0.27 - 4.20 CHANDAN PAZ mcIU/mL [facility] LABORATORY Specimen Anatomical Collection Method Collection Time Receive d Time (Source) Location / / Volume Laterality Blood specimen 01/09/2021 1:14 PM 021 1:27 (specimen) EST PM EST Resulting Agency Comment Spec In Lab Edwin Grubbs APRN CHEMISTRY ORDERABLES Performing Organization Address City/[facility]/ZIP Code Phon e Number [address] IgA (01/09/2021 1:14 PM EST) athologist Signature IgA 117 70 - 400 [place] mg/dL [facility] LABORATORY Specimen Anatomical Collection Method Collection Time Receive d Time (Source) Location / / Volume Laterality Blood specimen 01/09/2021 1:14 PM 021 1:27 (specimen) EST PM EST Resulting Agency Comment Spec In Lab Edwin Grubbs APRN IMMUNOLOGY ORDERABLES Performing Organization Address City/[facility]/ZIP Code Phon e Number [address] IgG (01/09/2021 1:14 PM EST) athologist Signature IgG 1,437 700 - 1,600 [place] mg/dL [facility] LABOR[facility]ORY Comment: Pediatric Reference Intervals obtained f rom the Caliper Reference Interval project. http://www.sickkids.ca/caliperp roject/index.html Specimen Anatomical Collection Method Collection Time Receive d Time (Source) Location / / Volume Laterality Blood specimen 01/09/2021 1:14 PM 021 1:27 (specimen) EST PM EST Resulting Agency Comment Spec In Lab Edwin Grubbs APRN IMMUNOLOGY ORDERABLES Performing Organization Address City/State/ZIP Code Phon e Number [address] Tissue transglutaminase, IgA (01/09/2021 1:14 PM EST) P athologist Signature TTG IgA Ab 0.2 0.1 - 10.0 [facility] u/ml [facility] LAB[facility]ORY Comment: Negative = <7 U/mL Equivocal = 7-10 U/mL Positive = >10 U/mL Specimen Anatomical Collection Method Collection Time Receive d Time (Source) Location / / Volume Laterality Blood specimen 01/09/2021 1:14 PM 021 7:50 (specimen) EST AM EST Resulting Agency Comment Spec In Lab Edwin Grubbs APRN IMMUNOLOGY ORDERABLES Performing Organization Address City/State/ZIP Code Phon e Number [address] documented in this encounter Visit Diagnoses Diagnosis Chronic cough Cough Heartburn RUQ pain Abdominal pain, right upper quadrant Fecal urgency Dysphagia, unspecified type History of hepatitis C Personal history of other infectious and parasitic disease Chronic systolic heart failure documented in this encounter Care Teams Timekeeper Relationship Specialty Start Date End Date Pricila Geller APRN PCP - General Family Medicine 11/24/18 [place] [address] documented as of this encounter
--- OUTSIDE RECORDS SUMMARY | 2022-05-20 07:38 | XMS_ITS | Encounter Summary ---
:1955 Author Organization [facility] [place] [address] Care Team Providers Name Role Phone Pricila Geller APRN Primary Care Provider Encounter Details Date Type Department Care Team Description 05/19/2020 Refill Cardiology at [facility] Lali Vu, [facility] [place] [phone] [facility] [phone] [place], [place] [address] (Wo rk) Social History Tobacco [...] 06/16/2022 Office Visit Cardiology Gianna Lorenzana PA [facility] er Cardiology Dept [place], [place] [address] (Wo rk) Scheduled Procedures Name [...] on filedocumented in this encounter Care Teams Loading Inspector Relationship Specialty Start Date End Date Pricila Geller APRN PCP - General Family Medicine 11/24/18 [address] [place] [address] documented as of this encounter
--- OUTSIDE RECORDS SUMMARY | 2022-05-20 07:38 | XMS_ITS | Encounter Summary ---
:1955 Author Organization [facility] [place] [address] Care Team Providers Name Role Phone Pricila Geller JOELLE Primary Care Provider Reason for Referral Consultation (Routine) - Closed Specialty Diagnoses / Procedures Referred By Contact Refer red To Contact Gastroenterology Diagnoses Dysphagia, unspecified type cough, reflux, failed PPI Avelino Whelan, [facility] [place] [facility] [place] [facility] [place] [address] [place] [address] Phone: Fax: Referral ID Status Reason Start Date Expiration Date Visits V isits Requested Authorized [id number] Closed Consult, 10/24/2020 10/24/2021 1 1 Test & Treat Encounter Details Date Type Department Care Team Description 10/24/2020 Office Visit Cardiology at [facility] [place] Avelino Whelan, Dysphagia, [facility] Lali [place] [address] [place], [place] [id number] (Wo rk) Social History Tobacco Use Types [...] Sign Reading Time Taken Comments Blood Pressure 139/87 10/24/2020 1:55 PM EST Pulse 69 10/24/2020 1:55 PM EST Temperature - - Respiratory Rate - - Oxygen Saturation 100% 10/24/2020 1:55 PM EST Inhaled Oxygen Concentration - - Weight 81.7 kg (180 lb 1.9 oz) 10/24/2020 1:55 PM EST Height 175.3 cm (5' 9) 10/24/2020 1:55 PM EST Body Mass Index 26.6 10/24/2020 1:55 PM EST documented in this encounter Patient Instructions Patient InstructionsGilstraLali Michel MD - 10/24/2020 1:40 PM EST 1. Continue metoprolol 150mg in the morning and 100mg in the evening - keep an eye on skipped/extra beats and let me know if you experience more 2. Keep an eye on your blood pressure - if the top number is >120mmHg for a while, let me know and we will increase your Entresto 3. 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 Since his last visit in January 2018: - He has felt well -Good exercise tolerance -Slight weight gain which he attributes to Covid -No orthopnea PND or lower extremity edema -Only very occasional palpitations -NYHA class II by symptoms Review of Systems All other 12 point review of systems negative except as noted above. Past Medical History Patient Active Problem List Diagnosis ??? Acute systolic congestive heart failure Prior echo from [facility] 10/2015: EF 40-45%, mean aortic valve gradient 22mmHg [place] echo Aug 2017: EF 20-25%, DVI 0.35, ascending aorta 4.2cm, aortic arch 5.3cm Current echo [facility] [place] 08/31/17:EF 31%, septum paradoxical motion (dys-synchrony present), [...] Valvular disease - mitral valve prolapse, repair ([place], [place]) 11/07/09: P2 resection, sliding annuloplasty, placement of #38 Future band. - [facility] 12/01/10 : mitral valve replacement with a #33 EPIC IC procedure, tricuspid valve repair with a #32 MC3 ring, MAZE - AVR 2013. ([facility] [place]): no records available. ??? Aneurysm of aortic arch Noted on echo at [facility] 5.3cm (08/30/2017) ??? Hypertension ??? H/O mitral valve replacement with tissue graft ??? H/O aortic valve replacement with porcine valve Full Medication List Outpatient Medications Marked as Taking for the 10/24/20 encounter (Office Visit) with Lali Vu MD Medication Sig Dispense Refill ??? apixaban (Eliquis) 2.5 mg Tablet Take 1 tablet by mouth 2 times daily. 60 tablet 0 ??? sacubitriL-valsartan (Entresto) 24-26 mg Tablet tablet Take 1 tablet by mouth 2 times daily. 180tablet 3 ??? torsemide (Demadex) 20 mg Tablet Take 1 tablet by mouth daily. 90 tablet 3 ??? metoprolol succinate XL (Toprol-XL) 100 mg [...] No Known Allergies Social & Family History TOB: Social History Tobacco Use Smoking Status Never Smoker Smokeless Tobacco Never Used ETOH: Social History Substance and Sexual Activity Alcohol Use No Comment: Former heavy daily user quit in 201310/24/2020 Illicits: Social History Substance and Sexual Activity Drug Use No Comment: Former cocaine user FHx: Family History Problem Relation Age of Onset ??? Emphysema Mother ??? Hypertension Mother ??? Alcohol Use Disorder Father ??? Aneurysm Father ??? Hypertension Father ??? Substance Use Disorder Brother Physical Exam Vitals: 10/24/20 1355 BP: 139/87 Patient Position: Sitting Pulse: 69 SpO2: 100% Weight: 81.7 kg (180 lb 1.9 oz) Height: 175.3 cm (5' 9) General: NAD Neck: JVP not elevated Cardiac: Regular with ectopy, systolic murmur noted diffusely Lungs: CTAB Abdomen: Soft NT/ND Extremities: WWP w/ trace lower extremity edema Relevant Labs Potassium 3.8, creatinine 1.45 down from 1.84 down from 2.17 ProBNP 1370 Relevant CardiacStudies TTE from 11/09: Mild concentric LVH, EF 52% with qlof-sj-nbyg variability due to PVCs, RV normal in size with PASP of 24, left atrium severely dilated, right atrium mildly dilated Mean transvalvular gradient across the aortic valve of 16 with mild AI Mean gradient across the mitral valve 5 at 75 bpm with trace MR Assessment: Cong Khan is a 65 y.o. male with a past medical history of valvular cardiomyopathy status postmitral valve replacement in 2010 and aortic valve replacement in 2014 in [place] with previously reduced EF in the 30s which is now recovered to 52% with guideline directed medical therapy who presentsto the advanced heart disease clinic for follow-up. His ultrasound today is essentially stable in terms of his ejection fraction. Notable changes include frequent ectopy as well as severe left atrial dilatation. He does have a history of atrial fibrillation and continues on apixaban 2.5 mg twice a day (dose reduced after extensive bleeding on apixaban r equiring apixaban levels. Given propensity to go back into A. fib, we will continue his anticoagulation for now The one thing notable today was his increased ectopy. He is currently on 250 mg daily total of metoprolol succinate. I am a bit reluctant to increase that especially in light of the fact that he is completely asymptomatic. He will continue to monitor for signs or symptoms of palpitations and we can always do a Zio patch to quantify his degree of ectopy if it becomes more of an issue. In terms of his blood pressure, it is elevated today but he tells me is not usually this high. He isgoing to keep an eye on it at home. I will increase his Entresto to the mid range dose if it looks like he will be able to tolerate it. Per his request, we will put in a referral to GI. Plan: Patient Instructions 1. Continue metoprolol 150mg in the morning and 100mg in the evening - keep an eye on skipped/extra beats and let me know if you experience more 2. Keep an eye on your blood pressure - if the top number is >120mmHg for a while, let me know and we will increase your Entresto 3. Referral to GI - If you don't hear from anyone in a week or two call [phone] RT in 6 months with normal labs This clinic visit lasted 35 minutes, of which 30 minutes were spent in direct discussion and counseling with the patient. Lali You MD MPH [facility] Attending 10/24/2020, 5:08 PM documented in this encounter Plan of Treatment Upcoming Encounters Date Type Specialty Care Team Description 06/16/2022 Laboratory Appointment Lab 06/16/2022 Office Visit Cardiology Gianna Lorenzana PA [facility] er Cardiology Dept [place], [place] [address] (Wo rk) Scheduled Procedures Name Priority Associated Diagnoses Date/Time EGD, UPPER GI ENDOSCOPY Chronic cough Heartburn RUQ pain Fecal urgency Dysphagia, unspecifi ed type History of hepatitis C COLONOSCOPY, DIAGNOSTIC Chronic cough Heartburn RUQ pain Fecal urgency Dysphagia, unspecifi ed type History of hepatitis C Scheduled Referrals Name Type Priority Associated Order Schedule Diagnoses Referral to Outpatient Routine Dysphagia, Ordered: Gastroenterology Referral unspecified type 020 documented as of this encounter Goals Goal Patient Goal Associated Recent Patient-Stated? Author Type Problems Progress DH Home Medication Patient No Daniela ward, Compliance and Facing Tad A, Understanding Action Plan [facility] Note: Formatting of this note might be d ifferent from the original. Maintain 100% adherence to Entresto twic e daily regimen documented as of this encounter Visit Diagnoses Diagnosis Dysphagia, unspecified type documented in this encounter Care Teams Tooth Cutter Spur Relationship Specialty Start Date End Date Pricila Geller APRN PCP - General Family Medicine 11/24/18 [address] [place] [address] documented as of this encounter
--- OUTSIDE RECORDS SUMMARY | 2022-05-20 07:38 | XMS_ITS | Encounter Summary ---
:1955 Author Organization [facility] [place] [address] Care Team Providers Name Role Phone Pricila Geller JOELLE Primary Care Provider Reason for Visit Reason Onset Date Comments Follow-up 11/17/2020 Elevated BP Encounter Details Date Type Department Care Team Description 11/17/2020 Telephone Cardiology [place] [facility] [place]isca Russ, Follow-up (Elevated BP) [facility] [place] [address] Social History Tobacco Use Types Packs/Day [...] Telephone Encounter - Prisca Russ, RN - 11/17/2020 5:22 PM EST Pt contacted to see how his BP is doing since his clinic visit with Dr You. He reports that his BP has gone back down to 110/80 range, he notes a occasional episode of dizziness but not severe or very often. He will do daily BP's over the next few days to confirm the BP/HR and will send via myD-H to see if he has Systolic BP > 120 in order to tolerate increasing the Entresto. Awaiting BP readings to see if he can go to the 49/51 mg dosing of Entresto. Telephone Encounter - Prisca Russ RN - 11/17/2020 5:21 PM EST ----- Message from Lali Whelan MD sent at 10/24/2020 5:16 PM EST ----- Can you call him in about a week or so and see what his blood pressures have been running at home. His blood pressure was high in clinic. I would like to increase his Entresto to the mid range dose if his blood pressures greater than 120 systolic on average. He would need follow-up labs if we do increase it given his CKD. documented in this encounter Plan of Treatment Upcoming Encounters Date Type Specialty Care Team Description 06/16/2022 Laboratory Appointment Lab 06/16/2022 Office Visit Cardiology Gianna Lorenzana PA [facility] er Cardiology Dept [place], [place] [address] (Wo rk) Scheduled Procedures Name [...] Tad A, Understanding Action Plan [facility] Note: Formatting of this note might be d ifferent from the original. Maintain 100% adherence to Entresto twic e daily regimen documented as of this encounter Visit Diagnoses Not on filedocumented in this encounter Care Teams Telephone Sterilizer Relationship Specialty Start Date End Date Pricila Geller APRN PCP - General Family Medicine 11/24/18 Jessica [facility] [place] [address] documented as of this encounter
--- OUTSIDE RECORDS SUMMARY | 2022-05-20 07:38 | XMS_ITS | Encounter Summary ---
:1955 Author Organization [place] [address] Care Team Providers Name Role Phone Pricila Geller JOELLE Primary Care Provider Reason for Visit Reason Comments Medication Refill Eliquis Encounter Details Date Type Department Care Team Description 09/28/2020 Refill Cardiology at [facility] [place] Lizbeth Lopez, Medication Refill [facility] CARBONATION TESTER (Eliquis) [place] [address] [address] [phone] CARDIOLOGY DEPT. [place], [place] [address] (Wo rk) Social History Tobacco Use Types [...] Telephone Encounter - Prisca Russ RN - 10/06/2020 1:39 PM EST Pt calling to report he is all out of his Eliquis. He needs some called to his local [facility] in [facility] today. Pt notified he is past due for F/U with Dr You a 30 day supply of his Eliquis will be called [facility] local pharmacy. He will need 90 day renewal of this medication when he is in for his F/U appt. Pt is aware. documented in this encounter Plan of Treatment Upcoming Encounters Date Type Specialty Care Team Description 06/16/2022 Laboratory Appointment Lab 06/16/2022 Office Visit Cardiology Gianna Lorenzana PA [facility] er Dr Cardiology Dept [place], [place] [address] (Wo rk) Scheduled Procedures Name [...] and Facing Tad A, Understanding Action Plan [facility] Note: Formatting of this note might be d ifferent from the original. 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
--- OUTSIDE RECORDS SUMMARY | 2022-05-20 07:38 | XMS_ITS | Encounter Summary ---
:1955 Author Organization [facility] [place] [address] Care Team Providers Name Role Phone Pricila Geller JOELLE Primary Care Provider Reason for Visit Reason Onset Date Comments Questions 12/03/2020 elevated BP Encounter Details Date Type Department Care Team Description 12/03/2020 Telephone Cardiology at [facility] Prisca Russ, Questions (elevated BP) [facility] [place] [address] Social History Tobacco Use Types Packs/Day [...] Telephone Encounter - Prisca Russ, RN - 12/09/2020 7:30 PM EST Pt calling to report that his BP has improved with the increase of the Torsemide to 40 mg daily Pt to return to taking Torsemide 20 mg daily. Today 106/78, HR 74 other days 110-120/70-80. Weight this evening 175 lbs, he will start doing daily weights in am at ~ same time. He will call if his weight goes up 2 lbs in a day, 5 lbs in a week or if he notices any swelling inhis lower extremities and/or abdomen. He reports only drinking 32 ounces of fluid a day. Encouraged to increase to 64 ounces a day. He will be getting Entresto 49-51 mg soon abut will start by doubling the 24-26 mg tabs with the bottle he just received from the pharmacy. The pharmacist let him know that he qualified for financial assistance to cover the copay and is ready for the 49-51 mg tabs. He will et them next. The following message from Zackery at the specialty pharmacy forwarded to the staff in the MAP office: Good morning, We previously sent a MAP referral back on 11/28/2020 for this patient's Entresto, but since then the [facility] Heart Failure souleymane opened up, so we've successfully enrolled the patient in said souleymane. Due to this he will not be sending back the MAP paperwork, as he will be able to pay for the medication moving forward with the souleymane. Please see my eDH note encounter from 11/28 for additional information. Thank you, Zackery Pt asking if/when he should get repeat lab work? Telephone Encounter - Prisca Russ RN - 12/05/2020 4:15 PM EST Message reviewed with Dr You. Pt contacted with the following order from Dr You. He is to increase his Torsemide to 40 mg for 3 days. Call the HF triage nurse with an update on Tuesday, call sooner with any new or worsening symptoms. Pt verbalized good understanding of the current POC. Awaiting a call back. Telephone Encounter - Prisca Russ RN - 12/03/2020 5:06 PM EST Pt calling to report that his BP has been higher than usual. He doesn't know if it is from his dietary indiscretion or a need to change his meds. Because of COVID, he is not as active and is finding that he is eating foods that are higher in saltthan usual. He has his usual limited breathing. No swelling in his legs but his partner notes increased abdominal girth. His BP has been ranging 130-140's/80-90, HR in the 70's Weight is 176-177 lbs Las recorded weight on 10/24/2020 was 180 lbs He feels that he is up about 10 lbs. His Torsemide was decreased when started on Entresto 24/25 mg bid. He is taking 20 mg daily. He does not want to increase the Entresto due to cost (is using a 30 day free trial and is waiting for application from [facility] and will fax the completed form to [facility]). If approved he should be able to go up on the Entresto but his current co-pay is $574/30 days. Message forwarded to Dr You for advice. documented in this encounter Plan of Treatment Upcoming Encounters Date Type Specialty Care Team Description 06/16/2022 Laboratory Appointment Lab 06/16/2022 Office Visit Cardiology Gianna Lorenzana PA [facility] er Cardiology Dept [place], [place] [address] (Wo rk) Scheduled Procedures Name [...] and Facing Tad A, Understanding Action Plan [facility] Note: Formatting of this note might be d ifferent from the original. Maintain 100% adherence to Entresto twic e daily regimen documented as of this encounter Visit Diagnoses Not on filedocumented in this encounter Care Teams Fiction And Nonfiction Author Relationship Specialty Start Date End Date Pricila Geller APRN PCP - General Family Medicine 11/24/18 [place] [address] documented as of this encounter
--- OUTSIDE RECORDS SUMMARY | 2022-05-20 07:38 | XMS_ITS | Encounter Summary ---
:1955 Author Organization [facility] [place] [address] Care Team Providers Name Role Phone Pricila Geller APRN Primary Care Provider Encounter Details Date Type Department Care Team Description 12/08/2020 Refill Cardiology [place] [facility] [place] Vu, [facility] [place] [address] [place] [address] [place], [place] [address] (Wo rk) Social History Tobacco [...] 06/16/2022 Office Visit Cardiology Gianna Lorenzana PA [facility] er Cardiology Dept [place], [place] [address] (Wo rk) Scheduled Procedures Name [...] on filedocumented in this encounter Care Teams Video Control Engineer Relationship Specialty Start Date End Date Pricila Geller APRN PCP - General Family Medicine 11/24/18 Jessica [facility] [facility] [address] documented as of this encounter
--- OUTSIDE RECORDS SUMMARY | 2022-05-20 07:38 | XMS_ITS | Encounter Summary ---
:1955 Author Organization [facility] [place] [address] Care Team Providers Name Role Phone Pricila Geller APRN Primary Care Provider Reason for Visit Reason Onset Date Comments Medication Refill 10/27/2020 Eliquis Encounter Details Date Type Department Care Team Description 10/27/2020 Refill Cardiology at [facility] [place] Avelino Whelan, Medication Refill [facility] Lali Garland MD (Eliquis) [facility] [place] [address] [place] [address] [phone] (Wo rk) Social History Tobacco Use Types [...] 06/16/2022 Office Visit Cardiology Gianna Lorenzana PA [facility] Cardiology Dept [place], [place] [address] (Wo rk) Scheduled Procedures Name [...] and Facing Tad A, Understanding Action Plan [facility] Note: Formatting of this note might be d ifferent from the original. 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
--- OUTSIDE RECORDS SUMMARY | 2022-05-20 07:38 | XMS_ITS | Encounter Summary ---
:1955 Author Organization [facility] Address [address] [place] [address] Care Team Providers Name Role Phone Pircila Geller JOELLE Primary Care Provider Reason for Visit Reason Onset Date Comments Follow-up 12/10/2020 Entresto increase to 49-51 mg bid Encounter Details Date Type Department Care Team Description 12/10/2020 Telephone Cardiology at [facility] [place] Prisca Russ, Follow-up ([facility] RN increase to 49-[address] bid) [place] [address] Social History Tobacco Use Types Packs/Day [...] Telephone Encounter - Prisca Russ, RN - 12/10/2020 3:42 PM EST Pt contacted to see when he will be going to the 49-51 mg bid Entresto. States it will be ~ 12/15/20. Per NURSE CASE MANAGER Ariella he should get repeat BMP in 1-2 weeks after the increase. Pt will get this done at: [place] [place] [facility] lab P [phone] F [phone] Order entered into eD-H and faxed to be done on ~ 12/29/20. Pt to call the HF team with any questions/concerns. Pt verbalized good understanding of the current POC. documented in this encounter Plan of Treatment Upcoming Encounters Date Type Specialty Care Team Description 06/16/2022 Laboratory Appointment Lab 06/16/2022 Office Visit Cardiology Gianna Lorenzana PA [facility] er Dr Cardiology Dept [place], [place] [address] (Wo rk) Scheduled Procedures [...] Tad A, Understanding Action Plan [facility] Note: Formatting of this note might be d ifferent from the original. Maintain 100% adherence to Entresto twic e daily regimen documented as of this encounter Visit Diagnoses Diagnosis Chronic systolic heart failure documented in this encounter Care Teams Bond Runner Relationship Specialty Start Date End Date Pricila Geller APRN PCP - General Family Medicine 11/24/18 [place] [address] documented as of this encounter
--- OUTSIDE RECORDS SUMMARY | 2022-05-20 07:38 | XMS_ITS | Encounter Summary ---
:1955 Author Organization [facility] [place] [address] Care Team Providers Name Role Phone DuyenPricila JOELLE Primary Care Provider Reason for Referral Speech Therapy (Routine) - Closed Specialty Diagnoses / Procedures Referred By Contact Refer red To Contact Speech Pathology / Diagnoses Chronic cough Heartburn RUQ pain Fecal urgency Dysphagia, unspecified type History of hepatitis C Office Swallow Edwin Grubbs, [facility] Watch Case Polisher Rehab Speech Therapy HEAD MACHINE FEEDER [place] [phone] Fax: Referral ID Status Reason Start Date Expiration Date Visits V isits Requested Authorized [id number] Closed Evaluate and 12/10/2020 12/10/2021 1 1 Treat llergy Testing (Routine) - Closed Specialty Diagnoses / Procedures Referred By Contact Refer red To Contact Allergy Diagnoses Chronic cough Heartburn RUQ pain Fecal urgency Dysphagia, unspecified type History of hepatitis C Edwin Grubbs APRN [facility] [address] [place] [id number] [place] [address] Fax: Referral ID Status Reason Start Date Expiration Date Visits V isits Requested Authorized [id number] Closed Consult, 12/10/2020 12/10/2021 1 1 Test & Treat Consultation (Routine) - Closed Specialty Diagnoses / Procedures Referred By Contact Refer red To Contact Otolaryngology Diagnoses Chronic cough Heartburn RUQ pain Fecal urgency Dysphagia, unspecified type History of hepatitis C Edwin Grubbs [facility] 4f HEAD MACHINE [place], [place] [phone] [place] [address] Referral ID Status Reason Start Date Expiration Date Visits V isits Requested Authorized [id number] Closed Consult, 12/10/2020 12/10/2021 1 1 Test & Treat Consultation (Routine) - Closed Specialty Diagnoses / Procedures Referred By Contact Refer red To Contact Pulmonology Diagnoses Chronic cough History of hepatitis C Edwin Grubbs APRN [facility] [address] [place] [id number] [place] [address] Fax: Referral ID Status Reason Start Date Expiration Date Visits V isits Requested Authorized [id number] Closed Consult, 12/10/2020 12/10/2021 1 1 Test & Treat Consultation (Routine) - Specialty Diagnoses / Procedures Referred By Contact Refer red To Contact Gastroenterology Diagnoses Chronic cough Heartburn RUQ pain Fecal urgency Dysphagia, unspecified type History of hepatitis C HREM with pH impedance ON PPI for Chronic cough, heartburn, and dysphagia Edwin Grubbs APRN [facility] 4t Procedures HREM with pH impedance ON PPI for Chronic cough, heartburn, [place] [address] [place] [address] Phone: Fax: Referral ID Status Reason Start Date Expiration Date Visits V isits Requested Authorized [id number] Consult, 12/10/2020 12/10/2021 1 1 Test & Treat Reason for Visit Consultation (Routine) - Closed Specialty Diagnoses / Procedures Referred By Contact Refer red To Contact Gastroenterology Diagnoses Dysphagia, unspecified type cough, reflux, failed PPI Avelino Whelan, [facility] 4l Lali Garland MD [facility] [place] [address] [place] [address] Phone: Fax: Referral ID Status Reason Start Date Expiration Date Visits V isits Requested Authorized [id number] Closed Consult, 10/24/2020 10/24/2021 1 1 Test & Treat Encounter Details Date Type Department Care Team Description 12/10/2020 TH Visit Gastroenterology at [facility] Edwin Grubbs Chronic cough; (TeleHealth) [facility] Missy Louis APRN Heartburn; [place] [address] [facility] RUQ pain; [phone] Center Fecal urgency; [place], [place] Dysphagia, unsp ecified type; [id number] History of hepatitis C Social History Tobacco Use Types Packs/Day Years [...] Sign Reading Time Taken Comments Blood Pressure - - Pulse - - Temperature - - Respiratory Rate - - Oxygen Saturation - - Inhaled Oxygen Concentration - - Weight 78 kg (172 lb) 12/10/2020 8:22 AM EST Height 175.3 cm (5' 9) 12/10/2020 8:22 AM EST Body Mass Index 25.4 12/10/2020 8:22 AM EST documented in this encounter Patient Instructions Patient InstructionsSancEdwin houston APRN - 12/10/2020 8:00 AM EST Dear Medina, It was nice to meet you today. I have listed the recommendations we discussed below. Please call theRadiology department to schedule imaging test (RUQ US) at [phone] (option 2). -Fibroscan -RUQ US -EGD/Colonoscopy with anesthesia -Esophageal manometry with pH impedence ON PPI -Labs -Referral to Pulmonary -Referral to ENT -Referral to allergy -Referral to AIRLINE OPERATIONS AGENT -F/u with me when testing is complete Therapeutics: -Eliquis and procedures: Contact manager oncology for cardiac clearance and advise on stopping eliquis before EGD/Colonoscopy. (there will likely be biopsies taken during the procedure. If a stricture is found there may be dilation. If polyps are found during colonoscopy we will remove them). -Esomeprazole 20mg twice a day (30min-1hr before breakfast and 30min-1hr before dinner)-talk to pharmacist about timing with other medications -Remain on/Prescription given for esomeprazole 20mg BID - remain on this medication while awaiting esophageal testing and ensure that you continue this medication while performing esophageal testing documented in this encounter Progress Notes Edwin Grubbs APRN - 12/10/2020 8:00 AM EST [facility] TELEMEDICINE PRO[facility] Chief Complaint: Medina Khan is a 65 y[address] patient of Dr. Avelino Whelan here for trouble swallowing. Detailed history: Medina has a past medical history significant for Hepatitis C (s/p treatment with Harvoni), mitral valve prolapse s/p mitral valve repair x1 and replacement x2, aortic valve replacement, HTN, CHF, A. Fib, tricuspid repair, history of alcohol use disorder (sober for 5 years), stroke (2017), aneurysm ofaortic notch (Followed by [facility] Cardiology). Last seen by LUIS ALFREDO Mondragon on 05/2019. Former smokerof cigarettes and marijuana in teenage years. Interval history: Emeli, partner, accompanies patient Medina states he has a persistent and chronic cough, will occasionally produce clear phlegm. Intermittent. Has been around for years. If he has a cough drop in his mouth he doesn't have a cough. Occasionally cough will wake him up at night. Denies feeling of post nasal drip. Endorses clearing his throat. Denies hoarseness, wheezing, and h/o pneumonia. Infrequently will come close to gagging if coughing a lot. Has noticed cough is worse during the fall and into the winter, gets better in spring and summer. SOB occurs usually with some exertion. He has had this prior to his first heart surgery in 2009. 1-2 times a week he will have heartburn at night. Uses Tums and baking soda with water. Retrosternalburning. Does not believe heartburn occurs with certain foods at dinner. Denies regurgitation of acid or food. May have tried a PPI in the past but he stopped after a few weeks. Denies globus sensationand nocturnal awakening of symptoms. Denies coughing after eating, states he coughs before eating. Admits he is an alcoholic and used to drink heavily. Has been sober for 5 years. When he was still drinking heartburn was more frequent. Dysphagia to solids occurs once every few weeks. Uses water to force food bolus down. Dryer food andpeanut butter are more likely to cause. Began a few years ago, stable. Denies coughing after drinking liquids. Denies chest pain, nausea, vomiting, weight loss, early satiety, post prandial fullness. BM daily, formed, soft. Denies bloody stool and melena, straining. Occasional fecal urgency. Endorses having a lot of flatus. Urgency and gas began within the past year. Denies nocturnal BM and rectal tenesmus. Was supposed to have colonoscopy 1 year ago but didn't because he was on a high dose of Eliquis. Last colonoscopy 10 years ago-normal. RUQ bulge felt at bottom of the rib cage. Occurs if he bends over. Feels like a muscle spasm. 7-06/30. This began within the past year. Patient states that he had a tear in his diaphragm during one ofhis surgeries that the surgeon corrected. Has also noticed abdomen has increased in size. Notified [employer] Machine Offbearer nurse practitioner and she adjusted the torsemide. No difference. Current Regimen: Tums Baking soda and water Flax seed for fiber Past Therapies: PPI-took for a few weeks, unsure of why he stopped Lifestyle NSAID: 81mg ASA every morning otherwise no Caffeine/Soda/Artificial Sugar: 2 cups of coffee every morning. 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 Medications: Outpatient Medications Prior to Visit Medication Sig Dispense Refill ??? sacubitriL-valsartan (Entresto) 49-51 mg Tablet tablet Take 1 tablet by mouth 2 times daily. 180tablet 0 ??? metoprolol succinate XL (Toprol-XL) 100 mg [...] 2 times daily. 180 tablet 3 ??? torsemide (Demadex) 20 mg Tablet Take 1 tablet by mouth daily. 90 tablet 3 ??? tamsulosin (FLOMAX) 0.4 mg Capsule 0.4 mg daily. 11 ??? finasteride (PROSCAR) 5 mg Tablet 5 mg daily. 11 ??? aspirin 81 mg Tablet, Chewable Take 81 mg by mouth daily. 30 tablet 3 No facility-administered medications prior to visit. Allergies: has No Known Allergies. Past Medical History: has a past medical history of Alcohol use disorder, Atrial fibrillation, CHF (congestive heart failure), Hypertension, and Mitral valve prolapse. Past Surgical History: has a past surgical history that includes Total hip arthroplasty; Mitral valve replacement; Aortic valve replacement; Gastric fundoplication; Tricuspid valvuloplasty; and XR Fluoro Guided Joint Aspiration Large Right (Right, 06/19/2019). Family History: family history includes Alcohol Use Disorder in his father; Aneurysm in his father; Emphysema in his mother; Hypertension in his father and mother; Substance Use Disorder in his brother. denies family history of colon cancer, IBD, or celiac disease in mother father or other family members Social History: reports that he has never smoked. He has never used smokeless tobacco. He reports that he does not drink alcohol or use drugs. Constitutional: well appearing, no apparent distress Eyes: conjunctiva clear without icterus, pallor, or injection ENT: Nose without external redness or drainage. Mouth with normal dentition; moist mucous membranes CV: No lower extremity peripheral edema or signs of cyanosis Respiratory: Breathing comfortably and speaking in full sentences without evident tachypnea or signsof respiratory distress GI: Abdomen non-distended and non-tender to self-palpation Skin: No visible rashes Psych: Appropriate affect. Intact thought and speech Neuro: Alert and oriented. Moving upper extremities appropriately Questionnaire: No flowsheet data found. Laboratory studies, imaging, and procedures (in summary of my review of prior records): Lab Results Component Value Date WBC 5.1 06/05/2019 RBC 4.31 (L) 06/05/2019 HGB 13.7 06/05/2019 HCT 40.7 06/05/2019 MCV 94.4 (H) 06/05/2019 MCH 31.8 06/05/2019 MCHC 33.7 06/05/2019 PLATELET 195 06/05/2019 RDWCV 12.8 06/05/2019 Lab Results Component Value Date NA 142 10/24/2020 K 3.8 10/24/2020 CL 102 10/24/2020 CO2 34 (H) 10/24/2020 BUN 22 (H) 10/24/2020 CREATININE 1.45 10/24/2020 GLUCOSE 110 10/24/2020 CALCIUM 9.1 10/24/2020 ESTGFR 49 (L) 10/24/2020 Lab Results Component Value Date ALT 13 06/05/2019 AST 13 06/05/2019 ALKPHOS 36 (L) 06/05/2019 BILITOT 0.3 06/05/2019 BILIDIR 0.1 09/02/2017 ALBUMIN 4.5 06/05/2019 PROT 7.8 06/05/2019 Lab Results Component Value Date TSH 1.09 04/02/2019 -03/2019 CT angiogram Chest, abdomen, pelvis: 1. Cardiomegaly, with severely dilated left atrium. 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 Suture material around the proximal ascending aorta suggests root/annulus replacement. Just distal to this, ascending aortic aneurysm measures 47 mm maximally. 2. 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 3. Scarring and surgical clips in the right inguinal region superficial to the common femoral vasculature. 4. Incidental 5 mm nonobstructing left lower pole renal calculus. Assessment/Plan: Mr. Khan is a 65 y.o. patient with #Chronic cough: Medina has had a persistent intermittent cough for many years. He will occasionally produce clear phlegm. Occasionally the cough awakens him at night. He has noticed that the cough is worse during the fall in the winter, gets better in the spring the summer. Cough drops improve the cough. Denies postnasal drip, hoarseness, wheezing, and history of pneumonia. Endorses clearing his throat frequently. Endorses shortness of breath with exertion, this began prior to his first heart surgery in 2009. Denies chest pain, nausea, vomiting, weight loss, early satiety, postprandial fullness. Will investigate with upper endoscopy and esophageal manometry with pH impedance on PPI. Will refer to pulmonary, ENT, allergy, AIRLINE OPERATIONS AGENT. We discussed upper respiratory tract conditions in depth today. This included discussion on pathophysiology of hypersensitivity and multifactorial etiology. We reviewed the importance of an extensive multidisciplinary evaluation to identify possible contributing factors and irritants. We discussed thefact that it is essential to concurrently control all contributing factors and irritants for a significant duration of time (often 6 months or longer) to significantly improve symptoms. Prognosis and realistic expectations were reviewed - most patients will unfortunately have some degree of chronic symptomatology. Finally we discussed general supportive measures such as behavioral modification and and the role of neuromodulators. I specifically discussed the potential role of acid and non-acid reflux in chronic upper respiratorytract conditions. We also discussed how to explore the possibility of reflux contributing. #Heartburn: Occurs 1-2 times a week at night. Experiences a retrosternal burning. Denies regurgitation of acid or food, globus sensation, nocturnal awakening of symptoms. Denies coughing after eating. Uses Tums and baking soda with water. They have tried PPI in the past but stopped after few weeks, unsure why. Medina admits that he is a former alcoholic, has been sober for 5 years, and when he was drinking more his heartburn was much more frequent. Will investigate with esophageal manometry with pH impedance on PPI and EGD. #Dysphagia: This began a few years ago and is stable. Occurs once every few weeks. Will feel the food gets stuck and uses water to force it down. Millinery Department Manager food and peanut butter more likely cause. Denies coughing after drinking liquids. Denies weight loss. Will investigate with EGD and esophageal manometry with pH impedance on PPI. Medina is aware that due to the COVID-19 pandemic there are significant delays in testing. #Fecal urgency and frequent flatus: Experiences this frequently. Began over the past year. Bowel movement daily, formed and soft. Denies bloody stool, melena, straining, nocturnal BM, rectal tenesmus. Medina was supposed to have a colonoscopy 1 year ago but he did not because he was on a high dose of Eliquis. Last colonoscopy 10 years ago-normal. Will investigate with colonoscopy and labs. #Right upper quadrant pain: Medina says that when he bends over to tie his shoes he feels a bulge inhis right upper quadrant. -06/30, muscle spasm type pain. Began within the past year. Patient notes that he did have a tear in his diaphragm one-point during one of his surgeries, the surgeon corrected. He has also noticed that his abdomen has increased in size. He has notified cardiology, who changedhis meds around but he has not noticed a difference. Will investigate with right upper quadrant ultrasound. #History of hepatitis C s/p treatment: Has been [facility] by LU[facility]FREDO [facility] Last visit 05/2019. Neno stated that he would like Medina to follow-up in 1 year with repeat FibroScan. Will order FibroScan. We discussed that complete symptom relief may not be a fully achievable goal for this chronic condition, but that improvement in quality of life, healthy days at work and family functions, and also general symptom improvement may be more reasonable goals. We discussed that treatments should be tried individually and for periods of at least 4-8 weeks to truly assess symptom response. I did my best to answer questions to the fullest ability. We discussed that recommended treatments should be tried individually for at least three months at a time to truly assess for a meaningful response, or as long as tolerated, before changing therapy. Recommendations: Diagnostics: -Fibroscan -RUQ US -EGD/Colonoscopy with anesthesia for dysphagia, chronic cough, fecal urgency. Please obtain biopsy for EOE -Esophageal manometry with pH impedence ON PPI -TSH, CBC, CMP, Celiac panel -Referral to pulmonary -Referral to ENT -Referral to Allergy Medicine -Referral to AIRLINE OPERATIONS AGENT Therapeutics: -Eliquis and procedures: Contact manager oncology for cardiac clearance and advise on stopping eliquis. (there will likely be biopsies taken during the procedure. If a stricture is found there may be dilation. If polyps are found during colonoscopy we will remove them). -Esomeprazole 20mg twice a day (30min-1hr before breakfast and 30min-1hr before dinner)-talk to pharmacist about timing with other medications -Remain on/Prescription given for esomeprazole 20mg BID - remain on this medication while awaiting esophageal testing and ensure that you continue this medication while performing esophageal testing RTC in 6 months or sooner when testing is complete to further consolidate the GI care plan for the patient's local team. Due to the consultative nature of our practice, the patient should continue to work with Pricila Geller APRN as the primary point of contact for urgent issues, medication refills and adjustments as needed for continuity of care purposes in between visits to our center based on the recommendations above. TIME SPENT WITH PATIENT Time spent reviewing records prior to this encounter: 5 minutes Time spent during encounter with patient including counselin minutes Time spent documenting encounter after office visit: 5 minutes Approximate total time devoted to this single encounter: 65 minutes Edwin Grubbs APRN [facility] [place] [id number] documented in this encounter Plan of Treatment Upcoming Encounters Date Type Specialty Care Team Description 06/16/2022 Laboratory Appointment Lab 06/16/2022 Office Visit Cardiology Gianna Lorenzana PA [facility] Cardiology Dept ERICA Do [phone] (Wo rk) Scheduled Orders Name Type Priority Associated Diagnoses Order S chedule ENDOSCOPY CASE Procedures Routine Chronic cough Ordered: 12/10/2020 REQUEST: EGD, UPPER GI Heartburn ENDOSCOPY, RUQ pain COLONOSCOPY, Fecal urgency DIAGNOSTIC Dysphagia, unspecified type History of hepatitis C Scheduled Procedures Name Priority Associated Diagnoses Date/Time [...] Dysphagia, unspecified type History of hepatitis C Referral to Pulmonology Outpatient Routine Chronic cough Ordered: Referral Heartburn 12/10/2020 RUQ pain Fecal urgency Dysphagia, unspecified type History of hepatitis C Referral to ENT Outpatient Routine Chronic cough Ordered: Referral Heartburn 12/10/2020 RUQ pain Fecal urgency Dysphagia, unspecified type History of hepatitis C Referral to Allergy Outpatient Routine Chronic coug h Ordered: Referral Heartburn 12/10/2020 RUQ pain Fecal urgency Dysphagia, unspecified type History of hepatitis C Referral to Speech Outpatient Routine Chronic cough Ordered: Therapy Referral Heartburn 12/10/2020 RUQ pain Fecal urgency [...] regimen documented as of this encounter Results Tissue transglutaminase, IgA (01/09/2021 1:14 PM EST) athologist Signature TTG IgA Ab 0.2 0.1 - 10.0 CHANDAN PAZ u/ml [facility] Comment: Negative = <7 U/mL Equivocal = 7-10 U/mL Positive = >10 U/mL Specimen Anatomical Collection Method Collection Time Receive d Time (Source) Location / / Volume Laterality Blood specimen 01/09/2021 1:14 PM 021 7:50 (specimen) EST AM EST Resulting Agency Comment Spec In Lab Edwin Grubbs APRN IMMUNOLOGY ORDERABLES Performing Organization Address City/[facility]/ZIP Code Phon e Number [address] IgG (01/09/2021 1:14 PM EST) P athologist Signature IgG 1,437 700 - 1,600 CHANDAN JACKSON mg/dL [facility] Comment: Pediatric Reference Intervals obtained f rom the Caliper Reference Interval project. http://www.Minubo.ca/caliperp roject/index.html Specimen Anatomical Collection Method Collection Time Receive d Time (Source) Location / / Volume Laterality Blood specimen 01/09/2021 1:14 PM 021 1:27 (specimen) EST PM EST Resulting Agency Comment Spec In Lab Edwin Grubbs APRN IMMUNOLOGY ORDERABLES Performing Organization Address City/[facility]/ZIP Code Phon e Number [address] IgA (01/09/2021 1:14 PM EST) P athologist Signature IgA 117 70 - 400 CHANDAN JACKSON mg/dL [facility] Specimen Anatomical Collection Method Collection Time Receive d Time (Source) Location / / Volume Laterality Blood specimen 01/09/2021 1:14 PM 021 1:27 (specimen) EST PM EST Resulting Agency Comment Spec In Lab Edwin Grubbs APRN IMMUNOLOGY ORDERABLES Performing Organization Address City/[facility]/ZIP Code Phon e Number [address] TSH [place] (01/09/2021 1:14 PM EST) P athologist Signature TSH 1.75 0.27 - 4.20 CHANDAN HENRIQUEZCOCK mcIU/mL [facility] Specimen Anatomical Collection Method Collection Time Receive d Time (Source) Location / / Volume Laterality Blood specimen 01/09/2021 1:14 PM 021 1:27 (specimen) EST PM EST Resulting Agency Comment Spec In Lab Edwin Grubbs APRN CHEMISTRY ORDERABLES Performing Organization Address City/State/[place] [address] (ABNORMAL) Comprehensive metabolic panel (non-fasting) (01/09/2021 1:14 PM EST) P athologist Signature Glucose Lvl 87 65 - 199 [facility] mg/dL [facility] Comment: Diabetes: >=200 mg/dL plus symp toms BUN 33 (H) 10 - 20 mg/dL [facility] Creatinine 1.57 (H) 0.80 - 1.50 mg/dL [facility] Sodium 139 135 - 145 mmol/L [facility] Potassium 4.2 3.5 - 5.0 mmol/L [facility] Comment: Please note: ??Patients with WBC >100,00 0 may have falsely elevated Potassium levels. ??For accurate Potassium quantif ication in these patients send serum separator tube (gold top) for subsequent determinations. ??Contact the Clinical Chemistry Laboratory if there are any qu estions. Chloride 104 98 - 107 mmol/L [facility] CO2 26 22 - 31 mmol/L [facility] Anion Gap 9 5 - 15 mmol/L [facility] Calcium 10.0 8.5 - 10.5 mg/dL [facility] Total Protein 7.4 6.1 - 8.0 gm/dL [facility] Albumin 4.6 3.2 - 5.2 gm/dL [facility] AST 14 0 - 39 unit/L [facility] ALT 7 0 - 55 unit/L [facility] Alk Phos 39 (L) 40 - 130 unit/L [facility] Total Bilirubin 0.5 0.2 - 1.3 mg/dL [facility] Estimated GFR 45 (L) >=60 mL/min/1.73 m?? [facility] LABORATORY Comment: This patient? s estimated [...] Organization Address City/State/[place] [address] [id number] (01/09/2021 11:30 AM EST) Narrative Jose Robledo PA - 01/09/2021 11:30 AM EST Jose Robledo PA ? 01/09/2021 11:49 AM [facility] Liver Fibrosis Asses sment Report Indication: ?? History of HCV, prior Fib roscan 05/2019 suggested F0-F1 with hepatic steatosis, repeat exa m post-SVR to ensure stability Performed by: ??LUIS ALFREDO Ron Procedure: Vibration Controlled Transien t Elastography (VCTE) or Fibroscan [place] Protocol: Patient's identity, procedure and site were verified, confirmatory pause performed. Discussed procedure including risks and potential complicati ons. Questions answered. Patient verbalizes understanding and wis hes to proceed with Fibroscan assessment. Patient was placed in the supine positio n with right arm in maximum abduction to allow optimal expos ure of right lateral abdomen. Patient was briefly assessed. T esting was performed in the mid-axillary location. 50Hz Shear Wa ve pulses were applied and the resulting Shear Wave and Propaga tion Speed was detected with a 3.5MHz ultrasonic signal, using t he Fibroscan probe. Skin to liver capsule distance and liver pare nchyma were accessed during the entire examination with the F ibroscan probe. Patient was instructed to breathe normally and a bstain from sudden movements during the procedure. At least ten Sheer Waves were produced; individual measurements of eac h Shear Wave were calculated. Patient tolerated the proced ure well with no complications. Fibroscan Results: Median kPa: 4.3 Mean IQR: 14% (goal is <30 %) Number of valid measurements: 10 (at [address] 10 required) Number of invalid measurements: 0 Predicted fibrosis stage: F0-F1 CAP (dB/m): 187 Estimated steatosis grade: 0-1/3 % hepatocytes affected: < 33% Interpretation: Based on this Fibroscan result, history, clinical examination and review of laboratory and radiological da ta, this patient likely has stage 0-1 liver fibrosis and grade 0 -1 steatosis affecting less than 33% of hepatocytes. Given stability of zero/low fibrosis, im provement in steatosis, and SVR achieved (HCV RNA undetected 2019), this patient no longer needs hepatology follow-up. Edwin Grubbs APRN PROCEDURE/MINOR SURGICAL ORD ERABLES US Abdomen Limited Hepatology Protocol (01/09/2021 10:16 AM EST) Anatomical Region Laterality Modality Abdomen Ultrasound Specimen (Source) Anatomical Collection Method Collection Time Re ceived Time Location / / Volume Laterality 01/09/2021 10:17 AM EST Impressions 01/09/2021 10:41 AM EST ?? Normal hepatic size and echogenicity . Mild undulating surface contour. No suspicious hepatic mass. 7mm simple cyst, LEFT lobe. Normal splenic size. No ascites. Cholelithiasis without sonographic evid ence of acute cholecystitis. Thank you for letting us participate in the care of this patient. For questions regarding this report, please contact t tamia number below. Electronically signed by: Aaron Mueller DO, Radiology [place] ([phone]), at 10:33 AM ? Aaron Mueller, Staff Physician Electronically Signed Final Report ?? 10:41 am Narrative 01/09/2021 10:41 AM EST Abdominal ? (Signed Final 01/09/2021 10:41 am) PATIENT INFO: ID #: ? [id number] ?: ??[birth year] (65 yrs)(M) Name: ? MEDINA Louis PAMELA ?Visit Date: 01/09/2021 10:17 am PERFORMED BY: Performed By: ? Cirstobal Saucedo RDMS Attending: ?Aaron Mueller DO Referred By: ?EDWIN GRUBBS Location: ? [place] SERVICE(S) PROVIDED: UABDLIM - Hepatology Protocol - Abdomin al ? [id number] Limited Survey Single Organ or Quadrant - [id number] INDICATIONS: RUQ abdominal pain, history of hepatiti s C s/p treatment COMPARISON: Prior CT: 04/02/2019 ------ LIVER: ------ Right Lobe Length: ?? 16.0 ?? cm Echogenicity/Echotexture: ?? Normal Portal Veins: ?Hepatopetal Comment: ?No focal hepatic mass see n, SIngle hepatic cyst ? seen in the left lobe measuring 0.7 x 0.5 x 0.8 cm. ? Mild capsular undulat ion GALLBLADDER: Cholelithiasis: ?Multiple stones ; mobile Wall Thickness: ?Normal wall thi ckness Focal Tenderness: ?Negative sonogra phic Vega's sign Comment: ?No pericholecystic fluid or hyperemia seen. BILIARY TRACT: Intrahepatic Ducts: ?? Normal Extrahepatic Ducts: ?? Normal Common Duct Size: ? 3.0 ? mm ------- SPLEEN: ------- Size (cm) ?L: ??9.3 ? AP: ?? 2.6 ? TV: ??3.3 Vol (ml): ?41.8 Comment: ?Normal appearance FLUID COLLECTIONS: No ascites seen. Procedure Note Aaron Mueller DO - 01/09/2021Formatt ing of this note might be different from the original. Abdominal (Signed Final 01/09/2021 10:4 1 am) PATIENT INFO: ID #: [id number] : [birth year] (65 y rs)(M) Name: MEDINA KHAN Visit Date: 01/09 10:17 am PERFORMED BY: Performed By: Cristobal Saucedo RDMS Attending: Aaron Mueller DO Referred By: EDWIN GRUBBS Location: [place] SERVICE(S) PROVIDED: UABDLIM - Hepatology Protocol - Abdomin al [id number] Limited Survey Single Organ or Quadrant - [id number] INDICATIONS: RUQ abdominal pain, history of hepatiti s C s/p treatment COMPARISON: Prior CT: 04/02/2019 ------ LIVER: ------ Right Lobe Length: 16.0 cm Echogenicity/Echotexture: Normal Portal Veins: Hepatopetal Comment: No focal hepatic mass seen, SI ngle hepatic cyst seen in the left lobe measuring 0.7 x 0 .5 x 0.8 cm. Mild capsular undulation GALLBLADDER: Cholelithiasis: Multiple stones; mobile Wall Thickness: Normal wall thickness Focal Tenderness: Negative sonographic Vega's sign Comment: No pericholecystic fluid or hy peremia seen. BILIARY TRACT: Intrahepatic Ducts: Normal Extrahepatic Ducts: Normal Common Duct Size: 3.0 mm ------- SPLEEN: ------- Size (cm) L: 9.3 AP: 2.6 TV: 3.3 Vol (ml): 41.8 Comment: Normal appearance FLUID COLLECTIONS: No ascites seen. IMPRESSION Normal hepatic size and echogenicity. M ild undulating surface contour. No suspicious hepatic mass. 7mm simple cyst, LEFT lobe. Normal splenic size. No ascites. Cholelithiasis without sonographic evid ence of acute cholecystitis. Thank you for letting us participate in the care of this patient. For questions regarding this report, please contact t he number below. Electronically signed by: Aaron Mueller DO [facility] ([phone]), at 10:33 AM Aaron Mueller, Staff Physician Electronically Signed Final Report 01/09 10:41 am Edwin Grubbs APRN [facility] GEN ORDERABLES documented in this encounter Visit Diagnoses Diagnosis Chronic cough Cough Heartburn RUQ pain Abdominal pain, right upper quadrant Fecal urgency Dysphagia, unspecified type History of hepatitis C Personal history of other infectious and parasitic disease Chronic cough Cough Heartburn RUQ pain Abdominal pain, right upper quadrant Fecal urgency Dysphagia, unspecified type History of hepatitis C Personal history of other infectious and parasitic disease Chronic cough Cough Heartburn RUQ pain Abdominal pain, right upper quadrant Fecal urgency Dysphagia, unspecified type History of hepatitis C Personal history of other infectious and parasitic disease documented in this encounter Care Teams Safety Glass Installer Relationship Specialty Start Date End Date Pricila Geller APRN PCP - General Family Medicine 11/24/18 [place] [address] documented as of this encounter
--- OUTSIDE RECORDS SUMMARY | 2022-05-20 07:38 | XMS_ITS | Encounter Summary ---
:1955 Author Organization [facility] [place] [address] Care Team Providers Name Role Phone Pricila Geller APRN Primary Care Provider Reason for Visit Reason Comments Medication Management Encounter Details Date Type Department Care Team Description 05/19/2020 Specialty Pharmacy Pharmacy at [facility] Rui Villalobos [facility], [place] [address] Social History Tobacco Use Types Packs/Day Years [...] documented as of this encounter Progress Notes Rui Villalobos RPH - 05/19/2020 1:29 PM EDT Clinical Management Plan: Refill Specialty Pharmacy Consultation; Rui Villalobos [facility] Comprehensive Medication Management (CMM) Cong Khan is a 65 y.o. (1955) male who was contacted in regard to a specialty medication refill reminder. Spoke with patient regarding ENTRESTO. A review of the medication therapy was performed. The medication was refilled as scheduled, and all medication related questions and concerns were addressed. The specialty pharmacy staff will follow up with the patient 5-7 days prior to next refill. Was a change made to the Care Plan: no Assessment and Recommendations: Title Type of Medication Management: chronic disease management, targeted medication review Referred By: provider Recipient: beneficiary Provider: plan sponsor pharmacist [place] [facility] [place] Method of Contact: by telephone Cognitive Ability: good Cognitive Impairment Status Verified this Year: no Allergies and Drug intolerance: No Known Allergies Medication Reconciliation Discrepancies (compared to [facility] med list) - none New medications: no New medical conditions: no New allergies: no Adherence: Medication Adherence Patient reported X missed doses in the last month: 0 Any gaps in refill history greater than 2 weeks in the last 3 months: no Demonstrates understanding of importance of adherence: yes Informant: patient Reliability of informant: reliable Provider-estimated medication adherence level: 90-100% Adherence tools used: directed education Support network for adherence: healthcare provider Confirmed plan for next specialty medication refill: delivery by pharmacy Are you experiencing any side effects from your medications? no Pt understands no changes to current drug regimen were made at the appointment and that [facility] is providing recommendations (summary located at top of note) for provider review and follow up. Rui Villalobos RPH 05/19/20 1:31 PM documented in this encounter Plan of Treatment Upcoming Encounters Date Type Specialty Care Team Description 06/16/2022 Laboratory Appointment Lab 06/16/2022 Office Visit Cardiology Gianna Lorenzana PA [facility] Cardiology Dept [place], [place] [address] (Wo rk) Scheduled Procedures Name [...] No Daniela ward, Compliance and Facing Tad Wynne, Understanding Action Plan [facility] Note: Formatting of this note might be d ifferent from the original. Maintain 100% adherence to Entresto twic e daily regimen documented as of this encounter Visit Diagnoses Not on filedocumented in this encounter Care Teams Chauffeur Motorbus Relationship Specialty Start Date End Date Pricila Geller APRN PCP - General Family Medicine 11/24/18 Jessica [place] [address] documented as of this encounter
--- OUTSIDE RECORDS SUMMARY | 2022-05-20 07:38 | XMS_ITS | Encounter Summary ---
:1955 Author Organization [facility] [place] [address] Care Team Providers Name Role Phone Pricila Geller APRN Primary Care Provider Reason for Visit Reason Comments Medication Management Encounter Details Date Type Department Care Team Description 06/16/2020 Specialty Pharmacy Pharmacy at [facility] Lashell Hugo, [place] [id number] Social History Tobacco Use Types Packs/Day Years [...] documented as of this encounter Progress Notes Lashell Hugo RPH - 06/16/2020 3:39 PM EDT Clinical Management Plan: Refill Specialty Pharmacy Consultation; Lashell Hugo [facility] Comprehensive Medication Management (CMM) Cong Khan is [...] yes, should the medication be held: No Assessment and Recommendations: Title Type of Medication Management: chronic disease management, targeted medication review Referred By: pharmacist Recipient: beneficiary Provider: plan sponsor pharmacist [place] [facility] [place] Method of Contact: by telephone Cognitive Ability: good Cognitive Impairment Status Verified this Year: no Allergies and Drug intolerance: No Known Allergies Medication Reconciliation Discrepancies (compared to [facility] med list) -none New medications: no New [...] were made at the appointment and that [facility] is providing recommendations (summary located at top of note) for provider review and follow up. Lashell Hugo RPH 06/16/20 3:40 PM documented in this encounter Plan of Treatment Upcoming Encounters Date Type Specialty Care Team Description 06/16/2022 Laboratory Appointment Lab 06/16/2022 Office Visit Cardiology Gianna Lorenzana PA [facility] Cardiology Dept [place], [place] [address] (Wo rk) Scheduled Procedures Name [...] and Facing Tad A, Understanding Action Plan [facility] Note: Formatting of this note might be d ifferent from the original. Maintain 100% adherence to Entresto twic e daily regimen documented as of this encounter Visit Diagnoses Not on filedocumented in this encounter Care Teams Material Handling Crew Supervisor Relationship Specialty Start Date End Date Pricila Geller APRN PCP - General Family Medicine 11/24/18 Jessica [facility] [address] documented as of this encounter
--- OUTSIDE RECORDS SUMMARY | 2022-05-20 07:38 | XMS_ITS | Encounter Summary ---
:1955 Author Organization [facility] [place] [address] Care Team Providers Name Role Phone Pricila Geller APRN Primary Care Provider Reason for Visit Reason Onset Date Comments Medication Refill 12/03/2020 Metoprolol Succinate 100 & 50 mg tabs Encounter Details Date Type Department Care Team Description 12/03/2020 Refill Cardiology at [facility] Prisca Russ, twister tender Refill [facility] Missy patel (Metoprolol Succinate [address] [place] [address] & 50 mg tabs) [phone] Social History Tobacco Use Types Packs/Day Years [...] Encounter - Prisca Russ RN - 12/03/2020 4:55 PM EST Pt calling to report he has only 2 days left of his Metoprolol Succinate, both the 50 & 100 mg tablets. It will take too long for the pharmacy to mail to him and would like a 30 day supply to go to his local [facility] in [facility]. Refill called in as requested. Future refill pended to Dr You to go to the pharmacy. Pt prefers getting from here. Likes the service. documented in this encounter Plan of Treatment Upcoming Encounters Date Type Specialty Care Team Description 06/16/2022 Laboratory Appointment Lab 06/16/2022 Office Visit Cardiology Gianna Lorenzana PA [facility] Cardiology Dept [place], [place] [address] (Wo rk) Scheduled Procedures Name [...] Tad A, Understanding Action Plan [facility] Note: Formatting of this note might be d ifferent from the original. Maintain 100% adherence to Entresto twic e daily regimen documented as of this encounter Visit Diagnoses Diagnosis Chronic systolic heart failure Atrial fibrillation, unspecified type documented in this encounter Care Teams [place] [employer] Relationship Specialty Start Date End Date Pricila Geller APRN PCP - General Family Medicine 11/24/18 [place] [address] documented as of this encounter
--- OUTSIDE RECORDS SUMMARY | 2022-05-20 07:38 | XMS_ITS | Encounter Summary ---
:1955 Author Organization [facility] [place] [address] Care Team Providers Name Role Phone Pricila Geller APRN Primary Care Provider Encounter Details Date Type Department Care Team Description 12/29/2020 Telephone Gastroenterology at [facility] [place] [address] Social History Tobacco Use Types Packs/Day Years [...] this encounter Miscellaneous Notes Telephone Encounter - Catina Rizo - 12/29/2020 4:37 PM EST 24 HOUR PH IMPEDANCE CLINICAL SAFETY CHECKLIST 12/29/2020 Catina Rizo Cong Khan [address] [facility] [address] [id number] : 1955 REFERRING PROVIDER: Edwin Grubbs PRIMARY CARE PROVIDER: Pricila Geller APRN PRIMARY SYMPTOM (PROCEDURE INDICATION): heartburn, cough and dysphagia/difficulty swallowing SAFETY QUESTIONS FOR THE PATIENT HISTORY OF TRANSSPHENOIDAL OR PITUITARY SURGERY? no IF YES, please inform the patient that the test cannot be scheduled due to safety concerns about testing, and the patient should speak with their provider to consider alternative testing. The schedulershould also contact the provider's office directly to notify them that we are unable to schedule dueto a contraindication to testing. Then, delete the remainder of this checklist and close out the referral. HISTORY OF NASAL SURGERY IN THE LAST SIX MONTHS? no IF YES: PT CANNOT BE SCHEDULED DUE TO SAFETY CONCERNS until we receive documented clearance by theirENT provider. Then, delete the remainder of this checklist and close out the referral. PLEASE LOOK THIS UP IN THE CHART IN THE PRIOR 12 MONTHS, HAS AN ESOPHAGEAL MANOMETRY BEEN PERFORMED AT [facility]? no IF NO, please inform the patient that an esophageal manometry will be scheduled at the same time as the pH impedance test as part of the procedure. A new referral is not needed. Please add the .xmohremchecklist to bottom of this note. QUESTIONS FOR THE PATIENT DIABETIC? no Diabetic patients should speak with their PCP or managing provider at least two weeks before the test to ask what medication or insulin adjustments are needed for testing. If the patient feels ill while fasting due to diabetes, it is OK to have a little apple juice - just enough to feel better. Patients fast 8 hours before testing and the test lasts 1 hour. ALLERGIC TO LIDOCAINE, BENZOCAINE? no (OK to schedule procedure but please document type of allergy if present) BLOOD THINNERS SUCH PLAVIX, COUMADIN, PRADAXA? Yes (pt does not have to stop any blood thinners for this procedure) DOES THE PATIENT USE A WHEELCHAIR? no VERBAL PATIENT INSTRUCTIONS FOR on-PPI STUDY The written instructions are very important for the patient to review and contain specific dietary and medication instructions prior to testing. These instructions will give the patient the most accurate test result. The patient should speak with their referring provider or our office if they have any questions. APPOINTMENT NOTES TEMPLATE Document the correct appointment notes template depending on if an esophageal manometry is also needed. Esophageal manometry with pH impedance: HREM with Ph/IMP on PPI, symptom: heartburn, cough and dysphagia/difficulty swallowing, RMD:Edwin Grubbs, PCP: Pricila Geller APRN, wheelchair: No, blood thinners: Yes, allergy to lidocaine/benzocaine/novocaine: No PLEASE DOCUMENT THE ESOPHAGEAL MANOMETRY CHECKLIST BELOW if you use this template. (At exit, the RMD for appointment notes is the GI provider who saw the patient) pH the patient) documented in this encounter Plan of Treatment Upcoming Encounters Date Type Specialty Care Team Description 06/16/2022 Laboratory Appointment Lab 06/16/2022 Office Visit Cardiology Gianna Lorenz[facility] Cardiology Dept [place], [place] [address] (Wo rk) Scheduled Procedures Name [...] Tad A, Understanding Action Plan [facility] Note: Formatting of this note might be d ifferent from the original. Maintain 100% adherence to Entresto twic e daily regimen documented as of this encounter Visit Diagnoses Not on filedocumented in this encounter Care Teams Head Counselor Relationship Specialty Start Date End Date Pricila Geller APRN PCP - General Family Medicine 11/24/18 [address] [place] [address] documented as of this encounter
--- OUTSIDE RECORDS SUMMARY | 2022-05-20 07:38 | XMS_ITS | Encounter Summary ---
:1955 Author Organization [facility] Address [facility] [place] [address] Care Team Providers Name Role Phone Pricila Geller JOELLE Primary Care Provider Reason for Visit Reason Comments Prior Authorization Entresto 24-26mg tablets Encounter Details Date Type Department Care Team Description 12/08/2020 Specialty Pharmacy Pharmacy at [facility] Zackery Biutrago Prior Authorization [facility] [place] (Entresto 24-26mg Drive tablets) [place] [address] Social History Tobacco Use Types Packs/Day Years [...] documented as of this encounter Progress Notes Zackery Buitrago J - 12/08/2020 11:04 AM EST [facility], Medication Prior Authorization Patient: Cong Khan Patient : 1955 Patient Address: [address] [facility] [address] (home) Medication Name: ENTRESTO 24 MG-26 MG TABLET Medication ID: [id number] Patient Location: [facility] CARDIOLOGY 4A Patient Location Comment: Subscriber Insurance: Rx Options [place] Subscriber Insurance Comment: Fax: Physician: JAYY AGUIRRE Physician Comment: Sent Via: CM [place]: [id number] Ref/Case/PA#: [id number] Medication Strength Frequency Requested: Entresto 24-26mg tablets - one tablet twice daily Qty/Day Supply: 180/90 New Start: Insurance Change Diagnosis & ICD-10 Code: Acute systolic congestive heart failure, I50.21 Patient Notified: Yes Submission Notes: Sent PA under new Rx Options [place] insurance (Elixir) via [facility], await response. Zackery Buitrago 12/08/20 11:10 AM Zackery Buitrago - 12/08/2020 11:04 AM EST [facility], Prior Authorization Approval Medication Name: ENTRESTO 24 MG-26 MG TABLET Medication ID: [id number] Approval Dates: 12/08/2020 to 12/08/2021 Insurance requirements/notes: None Other Notes: The higher 49-51mg Entresto strength will not require an additional PA through insurance. Case/Reference #: [id number] Approval notification Received via: Fax Copay: $574 ($445 toward deductible), per 90 day supply. Claim details suggest cost will be around $129 for refill. Copay assistance: [employer] Copay Notes: The patient is already enrolled in the Savor[employer] souleymane, which reduces the cost to $0. Insurance mandated Pharmacy: [facility] Fillable at [facility]: Yes Pharmacy staff will be reaching out to the patient to inform them of their medication's approval by their insurance. If applicable, a pharmacist will speak with the patient to offer our specialty pharmacy services and to arrange delivery of their medication. Zackery Buitrago 12/09/20 9:52 AM documented in this encounter Plan of Treatment Upcoming Encounters Date Type Specialty Care Team Description 06/16/2022 Laboratory Appointment Lab 06/16/2022 Office Visit Cardiology Gianna Lorenzana PA [facility] [address] Cardiology Dept [place], [place] [address] (Wo rk) Scheduled Procedures Name [...] on filedocumented in this encounter Care Teams Property Insurance Claims Examiner Relationship Specialty Start Date End Date Pricila Geller APRN PCP - General Family Medicine 11/24/18 [place] [address] documented as of this encounter
--- OUTSIDE RECORDS SUMMARY | 2022-05-20 07:38 | XMS_ITS | Encounter Summary ---
:1955 Author Organization [facility] [place] [address] Care Team Providers Name Role Phone Pricila Geller APRN Primary Care Provider Encounter Details Date Type Department Care Team Description 01/09/2021 Hospital Encounter XRay at [facility] Zach Darby MD Chronic cough [address] [place] [phone] Pulmonary Medici [place], [place] [address] (Wo rk) Social History Tobacco [...] finasteride (PROSCAR) 5 mg 5 mg daily. 08/06/20 19 Tablet aspirin 81 mg Tablet, Take 81 mg by 30 tablet 3 09/08/2017 Chewable mouth daily. esomeprazole (NexIUM) 20 Take 1 capsule by 60 capsule 5 11/2203/16/2021 mg Capsule, Delayed mouth 2 times Release(E.C.)Indications: daily. Chronic cough, Heartburn, RUQ pain, Fecal urgency, Dysphagia, unspecified type, History of hepatitis C sacubitriL-valsartan Take 1 tablet by 180 tablet 0 1 03/16/2021 (Entresto) 49-51 mg Tablet mouth 2 times tablet daily. metoprolol succinate XL Take 1 tablet by [...] mg in am. Atrial fibrillation, unspecified type apixaban (Eliquis) 2.5 mg Take 1 tablet by 180 tablet 3 06/202010/23/2021 TabletIndications: Atrial mouth 2 times fibrillation, unspecified daily. type, Cerebrovascular accident (CVA) due to embolism of right middle cerebral artery torsemide (Demadex) 20 mg Take 1 tablet by 90 tablet 3 02/2003/20/2021 Tablet mouth daily. documented as of this encounter Plan of Treatment Upcoming Encounters Date Type Specialty Care Team Description 06/16/2022 Laboratory Appointment Lab 06/16/2022 Office Visit Cardiology Gianna Lorenzana PA [facility] er Cardiology Dept [place] [address] (Wo rk) Scheduled Procedures Name Priority Associated [...] A, Understanding Action Plan [facility] Note: Formatting of this note might be d ifferent from the original. Maintain 100% adherence to Entresto twic e daily regimen documented as of this encounter Procedures Procedure Name Priority Date/Time Associated Diagnosis Comme nts XR CHEST PA AND Routine 01/09/2021 12:51 PM Chronic cough Resu lts for this LATERAL EST procedure are i n the results section. documented in this encounter Results XR Chest PA & Lateral (Generic) (01/09/2021 12:51 PM EST) Anatomical Region Laterality Modality Chest N/A Digital Radiography Specimen (Source) Anatomical Location Collection Method / Collectio n Time Received Time / Laterality Volume Impressions 01/09/2021 1:54 PM EST No acute cardiopulmonary pathology. I have personally reviewed the image(s) and the resident's interpretation and agree with the findings, Ida Gandhi MD at 01/09/2021 1:54 PM Thank you for letting us participate in the care of this patient. For questions regarding this report, please contact e number below. ? Narrative 01/09/2021 1:54 PM EST EXAMINATION: XR CHEST PA AND LATERAL (GENERIC) CLINICAL HISTORY: Chronic cough TECHNIQUE: PA and lateral views of the chest COMPARISON: CTA chest abdomen pelvis dated 04/02/2019 Chest radiograph dated 09/22/2017 FINDINGS: Stable median sternotomy wires, aortic a nd mitral valve replacements, and tricuspid valve repair. Stable retained wire fragments posterior to the sternum. Bilateral lungs are clear. There are no pleural effusions or pneumothoraces. The trachea is midline. Mediastinal and hilar structures are unr emarkable. Cardiomediastinal silhouette remains enlarged, but not increased to p rior. Procedure Note Ida Jack MD - 2020 EXAMINATION: XR CHEST PA AND LATERAL ([employer]) CLINICAL HISTORY: Chronic cough TECHNIQUE: PA and lateral views of the chest COMPARISON: CTA chest abdomen pelvis dated 04/02/2019 Chest radiograph dated 09/22/2017 FINDINGS: Stable median sternotomy wires, aortic a nd mitral valve replacements, and tricuspid valve repair. Stable retained wire fragments posterior to the sternum. Bilateral lungs are clear. There are no pleural effusions or pneumothoraces. The trachea is midline. Mediastinal and hilar structures are unr emarkable. Cardiomediastinal silhouette remains enlarged, but not increased to p rior. IMPRESSION No acute cardiopulmonary pathology. I have personally reviewed the image(s) and the resident's interpretation and agree with the findings, Ida Gandhi MD at 01/09/2021 1:54 PM Thank you for letting us participate in the care of this patient. For questions regarding this report, please contact e number below. Zach Darby MD IMG DX ORDERABLES documented in this encounter Visit Diagnoses Diagnosis Chronic cough Cough documented in this encounter Care Teams Coin Machine Supervisor Relationship Specialty Start Date End Date Pricila Geller APRN PCP - General Family Medicine 11/24/18 [facility] [place] [address] documented as of this encounter
--- OUTSIDE RECORDS SUMMARY | 2022-05-20 07:38 | XMS_ITS | Encounter Summary ---
:1955 Author Organization [facility] [place] [address] Care Team Providers Name Role Phone Pricila Geller APRN Primary Care Provider Reason for Visit Reason Comments Medication Refill Medication Management Encounter Details Date Type Department Care Team Description 12/19/2020 Specialty Pharmacy Pharmacy at [facility] Shellie Walker Medication Refill; [facility], [facility] [place] [phone] Social History Tobacco Use Types Packs/Day Years [...] encounter Progress Notes Shellie Walker RPH - 12/19/2020 12:42 PM EST Clinical Management Plan: Refill Specialty Pharmacy Consultation; Shellie Walker Rosalinda Comprehensive Medication Management (CMM) Cong Khan [...] beneficiary Provider: plan sponsor pharmacist Visit Type: [facility] Follow-up Method of Contact: by telephone Cognitive Ability: good Cognitive Impairment Status Verified this Year: no Allergies and Drug intolerance: No Known Allergies Medication Reconciliation Discrepancies (compared to [facility] med list) -Entresto increased to 49/51 mg twice a day -Esomeprazole 20 mg twice a day added Specialty Pharmacy Refill Questionnaire Refill Questionnaire 12/19/2020 Are you taking any new medications? Yes Please explain Esomeprazole 20 mg twice a day Any new medical condition? No Any new allergies? No Any new side effects that are bothersome? No Adherence: Medication Adherence Patient reported X missed [...] Refills needed for supportive medications: not needed Pt understands no changes to current drug regimen were made at the appointment and that [facility] is providing recommendations (summary located at top of note) for provider review and follow up. Shellie Walker RPH 12/19/20 12:46 PM documented in this encounter Plan of Treatment Upcoming Encounters Date Type Specialty Care Team Description 06/16/2022 Laboratory Appointment Lab 06/16/2022 Office Visit Cardiology Gianna Lorenzana PA [facility] Cardiology Dept [place], [place] [address] (Wo rk) Scheduled Procedures Name [...] and Facing Tad A, Understanding Action Plan [facility] Note: Formatting of this note might be d ifferent from the original. Maintain 100% adherence to Entresto twic e daily regimen documented as of this encounter Visit Diagnoses Not on filedocumented in this encounter Care Teams Joint Filler Relationship Specialty Start Date End Date Pricila Geller APRN PCP - General Family Medicine 11/24/18 [address] [place] [address] documented as of this encounter
--- OUTSIDE RECORDS SUMMARY | 2022-05-20 07:38 | XMS_ITS | Encounter Summary ---
:1955 Author Organization [facility] [place] [address] Care Team Providers Name Role Phone Pricila Geller APRN Primary Care Provider Encounter Details Date Type Department Care Team Description 02/14/2020 External Results Cardiology at [facility] Prudence Lowry, [facility] [place] [phone] Social History Tobacco Use Types Packs/Day [...] 06/16/2022 Office Visit Cardiology Gianna Lorenzana PA [facility] Cardiology Dept [place], [place] [address] (Wo rk) Scheduled Procedures Name [...] Name Priority Date/Time Associated Diagnosis Comme nts PRO-BRAIN NATRIURETIC Routine 02/14/2020 Result s for this PEPTIDE procedure are i n the results section . BASIC METABOLIC PANEL Routine 02/14/2020 Result s for this (NON-FASTING) procedure are in the results section . documented in this encounter Results pro-Brain Natriuretic Peptide (02/14/2020) athologist Signature MRSA Interp Comment: NT-ProBNP (see scanned document s) Specimen (Source) Anatomical Location Collection Method / Collectio n Time Received Time / Laterality Volume Blood specimen 02/14/2020 (specimen) Historical Provider MD CHEMISTRY ORDERABLES Basic Metabolic Panel (non-fasting) (02/14/2020) athologist Signature Glucose Lvl 105 BUN 34 Creatinine 1.84 Sodium 142 Potassium 3.6 Chloride 105 Specimen (Source) Anatomical Location Collection Method / Collectio n Time Received Time / Laterality Volume Blood specimen 02/14/2020 (specimen) Historical Provider MD CHEMISTRY ORDERABLES documented in this encounter Visit Diagnoses Not on filedocumented in this encounter Care Teams Gis Coordinator Relationship Specialty Start Date End Date Pricila Geller APRN PCP - General Family Medicine 11/24/18 [place] [address] documented as of this encounter
--- OUTSIDE RECORDS SUMMARY | 2022-05-20 07:38 | XMS_ITS | Encounter Summary ---
:1955 Author Organization [facility] [place] [address] Care Team Providers Name Role Phone Pricila Geller APRN Primary Care Provider Encounter Details Date Type Department Care Team Description 11/28/2020 Specialty Pharmacy Pharmacy at [facility] [place] [phone] Social History Tobacco Use Types Packs/Day [...] of this encounter Progress Notes Zackery Buitrago - 11/28/2020 10:59 AM EST [facility] Officer Assistance Referral [facility] has [...] in case they have any further questions. The patient has enough of the medication currently at home to last him until 12/10/20, but we are nowalso processing one last fill using the Entresto free trial offer, so he will have an additional 30 days of the medication to get him through, until he is hopefully approved for the steam service inspector free drug program. Patient: Cong Khan : 1955 Medication: Entresto 24-26mg tablets Dosing: One tablet twice daily Insurance: Rx Options [place]?: Yes [place] has been approved, current copay is: $574 Zackery Buitrago 11/28/20 10:59 AM Zackery Buitrago - 11/28/2020 10:59 AM EST [facility], Copay Assistance Medication Name: Entresto Medication ID: Name of Assistance Program: [facility] Heart Failure Souleymane Amount Provided by Program: $1000 New Copayment: $0 Additional Information regarding this Assistance: We successfully signed the patient up for the [facility] Heart Failure souleymane, which is good from 09/09/2020 - 12/07/2019, with up to $1000 in copay assistance. This would bring the patients three month supply Entresto copay of $574 down to $0. The copay through insurance should drop significantly once in the initial coverage period. Zackery Buitrago 12/08/20 10:27 AM documented in this encounter Plan of Treatment Upcoming Encounters Date Type Specialty Care Team Description 06/16/2022 Laboratory Appointment Lab 06/16/2022 Office Visit Cardiology Gianna Lorenzana PA [facility] Cardiology Dept [place], [place] [address] (Wo rk) Scheduled Procedures Name [...] on filedocumented in this encounter Care Teams Medical Administrator Relationship Specialty Start Date End Date Pricila Geller APRN PCP - General Family Medicine 11/24/18 [address] [place] [address] documented as of this encounter
--- OUTSIDE RECORDS SUMMARY | 2022-05-20 07:38 | XMS_ITS | Encounter Summary ---
:1955 Author Organization [place] [address] Care Team Providers Name Role Phone Pricila Geller SYSTEMS INTEGRATOR Primary Care Provider Reason for Visit Reason Onset Date Comments Questions 01/08/2021 See note Encounter Details Date Type Department Care Team Description 01/08/2021 Telephone Cardiology at [facility] Prisca Russ, RN Questions (See note) [place] [phone] Social History Tobacco Use Types Packs/Day [...] Telephone Encounter - Prisca Russ RN - 01/08/2021 7:48 PM EST Pt calling with the following questions: 1) he is scheduled for an Endo/[place] on 04/08/21. He wants to know what to do with his Eliquis. Per Dr You. He is to stop the Eliquis 2 days prior to the procedure and restart the day after or when directed by GI. 2) Cough. GI started him on Nexium which seems to be helping. He is still coughing but it is not as bad. No response needed. 3) He is tolerating the Entresto increase well. BMP looks okay creatinine up to 1.6. BP 113/85, denies any dizziness/LH or worsening fatigue (is at his baseline). Per Dr You pt to decrease his Torsemide to 10 mg daily. Call with increase weight 2 lbs in a day or 5 lbs in a week, swelling in his legs or abdomen and/or new/worsening SOB. Drink 1.5 - 2 litersof fluid daily, continue 2 gm sodium diet. Pt given the above responses and voices good understanding. documented in this encounter Plan of Treatment Upcoming Encounters Date Type Specialty Care Team Description 06/16/2022 Laboratory Appointment Lab 06/16/2022 Office Visit Cardiology Gianna Lorenzana PA [facility] er Cardiology Dept [place], [place] [address] (Wo rk) Scheduled Procedures Name [...] and Facing Tad A, Understanding Action Plan [facility] Note: Formatting of this note might be d ifferent from the original. Maintain 100% adherence to Entresto twic e daily regimen documented as of this encounter Visit Diagnoses Not on filedocumented in this encounter Care Teams Clinical Veterinarian Relationship Specialty Start Date End Date Pricila Geller APRN PCP - General Family Medicine 11/24/18 [place] [address] documented as of this encounter
--- OUTSIDE RECORDS SUMMARY | 2022-05-20 07:38 | XMS_ITS | Encounter Summary ---
:1955 Author Organization [facility] [address] Care Team Providers Name Role Phone Vielka Gellerh JOELLE Primary Care Provider Reason for Referral Diagnostic Test (Routine) - Closed Specialty Diagnoses / Procedures Referred By Contact Refer red To Contact Cardiology Diagnoses Chronic systolic heart failure Lali Vu Non-Inv Card Lab Procedures Echocardiogram Transthoracic([facility]) [place] [address] [place] [address] Referral ID Status Reason Start Date Expiration Date Visits V isits Requested Authorized [id number] Closed Specialty 02/15/2020 02/14/2021 1 1 Service Requested Reason for Visit Diagnostic Test (Routine) - Closed Specialty Diagnoses / Procedures Referred By Contact Refer red To Contact Cardiology Diagnoses Chronic systolic heart failure Lali Vu Non-Inv Card Lab Procedures Echocardiogram Transthoracic([facility]) [place] [address] [place] [address] Referral ID Status Reason Start Date Expiration Date Visits V isits Requested Authorized [id number] Closed Specialty 02/15/2020 02/14/2021 1 1 Service Requested Encounter Details Date Type Department Care Team Description 10/24/2020 Hospital Encounter Non-Invasive Armani Vu systolic Cardiology Lab Magali Garland MD heart failure [facility] [place], [place] [address] [phone] [place], [place] (Work) [phone] Social History Tobacco Use Types Packs/Day Years [...] Sig Dispensed Refills Start Date End Date tamsulosin (FLOMAX) 0.4 mg 0.4 mg daily. 11 2018 Capsule finasteride (PROSCAR) 5 mg 5 mg daily. 11 08/06/20 19 Tablet aspirin 81 mg Tablet, Take 81 mg by 30 tablet 3 09/08/2017 Chewable mouth daily. apixaban (Eliquis) 2.5 mg Take 1 tablet by 60 tablet 0 09/2110/27/2020 TabletIndications: Atrial mouth 2 times fibrillation, unspecified daily. 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 torsemide (Demadex) 20 mg Take 1 tablet by 90 tablet 3 02/2003/20/2021 Tablet mouth daily. metoprolol succinate XL Take 1 tablet by 180 tablet 3 201912/03/2020 (Toprol-XL) 100 mg Tablet mouth 2 times Sustained Release 24 daily. Take extra hrIndications: Chronic 50 mg tab in am systolic heart failure, for total 150 mg Atrial fibrillation, in am & 100 mg in unspecified type pm. metoprolol succinate XL Take 1 tablet by 90 tablet 3 201912/03/2020 (Toprol-XL) 50 mg Tablet mouth daily. Take Sustained Release 24 with 100 mg tab hrIndications: Chronic in in am for systolic heart failure, total of 150 mg Atrial fibrillation, in am. unspecified type documented as of this encounter Plan of Treatment Upcoming Encounters Date Type Specialty Care Team Description 06/16/2022 Laboratory Appointment Lab 06/16/2022 Office Visit Cardiology Gianna Lorenzana PA [facility] er Cardiology Dept [place], [place] [address] (Wo rk) Scheduled Procedures Name [...] A, Understanding Action Plan [facility] Note: Formatting of this note might be d ifferent from the original. Maintain 100% adherence to Entresto twic e daily regimen documented as of this encounter Procedures Procedure Name Priority Date/Time Associated Comments Diagnosis ECHOCARDIOGRAM COMPLETE Routine 10/24/2020 1:15 PM Chronic sys tolic Results for this EST heart failure procedure are in the results section. documented in this encounter Results ECHOCARDIOGRAM COMPLETE (10/24/2020 1:15 PM EST) Specimen (Source) Anatomical Location Collection Method / Collectio n Time Received Time / Laterality Volume 10/24/2020 Narrative [facility] - 10/24/2020 2:51 PM EST Procedure: ?Transthoracic Echocardiogram Patient: ?PAMELA Louis ? (Age): 1955(65y) Med Rec#: ? [id number] ?Sex: ?M ? Site Loc: ? [facility] ?Ht / Wt: ??175(cm)/77(kg) Pt. Loc: ?Echo Lab ?BSA: ?1 Study Date: ?? 10/24/2020 ?Pt. Type: Outpatient Tape: ? Referring: TIMOTHY ROSARIO Reading: Crista Tenorio ([id number]) Recreation Aide: Jose Flores RDCS Diagnosis: *Chronic systolic (congestive) heart fa ilure (I50.22) BP: ? 132/87 SUMMARY: 1. Mild concentric left ventricular hype rtrophy is observed.The left ventricular chamber size is normal.There is normal global left ventricular systolic function.The quanti tative left ventricular ejection fraction by biplane Walker's method is 52% with pkxv-po-cysk variability. Post-cardiotomy septal wall motion is present. 2. The right ventricle is normal in size and low normal in function.The estimated pulmonary artery systolic pres sure is 24 mmHg. 3. The left atrium is severely dilated ( 101 ml/m2). The right atrium is mildly dilated. 4. 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 DOI 0.36. Mild (1+/4+) aortic valv e prosthesis regurgitation is present. 5. A 32mm prosthetic mitral valve is fun ctioning normally.The mean gradient across the mitral valve is 5 mm Hg at 75 BPM. There is a trace amount of mitral prosthesis regurgitatio n. 6. See remainder of report for additiona l findings. 7. Compared to the prior study the left ventricular ejection fraction is visually similar. The gradients across t he aortic and mitral prostheses are similar. Findings ? : Study Quality: ? Technically limited Left Ventricle: ? The left ventricul ar chamber size is normal. ?Mild concentric left ventricular h ypertrophy is observed. ?Basal septal hypertrophy is observ ed. ?There is no evidence of LVOT obstr uction. ?No ventricular septal defect is vi sualized. ?There is normal global left ventri cular systolic function. ?The quantitative left ventricular ejection fraction by biplane Walker's method is 52%.with beat-to-lee ann t variability. ?There are left ventricular segment al wall motion abnormalities present, as shown in the diagram below. ?Post-cardiotomy septal wall motion is present. Left Atrium: ? The left atrium is se verely dilated.101 ml/m2 ?The inter-atrial septum appears in tact without evidence of shunting. Right Ventricle: ? The right ventric le is normal in size. ?Right ventricular global systolic function is low normal. ?The free wall of the right ventric le appears hypokinetic. ?The estimated pulmonary artery sys tolic pressure is 24 mmHg. ?The estimated right atrial pressur e is 3 mmHg. Right Atrium: ? The right atrium is mildly dilated. Aortic Valve: ? The peak instantaneo us trans-valvular gradient across the aortic valve is 34.5744 mmHg.Obtaine d from the apical position with the imaging CW probe. ?The mean trans-valvular gradient a cross ??the aortic valve is 16 mmHg.DOI 0.36 ?The size of the prosthetic aortic valve is 24mm. ?The prosthetic aortic valve was im planted on 01/19/2014. ?A porcine bio-prosthetic aortic va lve is present. ?The prosthetic aortic valve leafle ts are normal. ?The bio-prosthetic aortic valve ap pears well seated with normal function. ?Mild (1+/4+) aortic valve prosthes is regurgitation is present. Mitral Valve: ? The mean gradient ac ross the mitral valve is 5 mmHg.at 75 BPM. ?The size of the prosthetic mitral valve is 32mm. ?The prosthetic mitral valve was im planted on 01/19/2014. ?A bio-prosthetic mitral valve is p resent. ?The bio-prosthetic mitral valve le aflets are normal. ?The bio-prosthetic mitral valve ap pears to be functioning normally. ?There is a trace amount of mitral prosthesis regurgitation. Tricuspid Valve: ? The tricuspid michael ve appears normal in structure and function. ?There is mild (1+/4+) tricuspid re gurgitation present. Pulmonic Valve: ? The pulmonic valve appears normal in structure and function. Pericardium: ? The pericardium appea rs normal and there is no evidence of a pericardial effusion. ?A pericardial fat pad is visualize d. Aorta: ? There is mild dilatation of the aortic root.4.0 cm ?There is moderate dilatation of th [...] ?Value ?Units (Range) ? IVSd (2D) ? 1.8 ?cm ? LVPWd (2D) ?1.2 ?cm ? IVS:LVPW ratio (2D) 1.5 ?ratio ? RWT (2D) ?0.65 ? ratio ? RWT PW (2D) ? 0.52 ? ratio ? LVIDd (2D) ?4.6 ?cm ? LVIDs (2D) ?3.3 ?cm ? LVIDd (2D) index ?2.39 ? cm/m2 ? LVIDs (2D) index ?1.71 ? cm/m2 ? LV FS (2D) ?28.26 ?% ? EF Teichholz (2D) ?? 54.66 ?% ? Ao root diameter (2D4 ?cm (2.1 - 3.6) ? Ascending Ao ?4.5 ?cm (2 - 3.5) ? Volumes/Mass ?Value ?Units (Range) ? LA Area 4 CH ?44 ? cm2 (<21) ? RA AREA 4CH ? 18 ? cm2 ? LA ESV BP (MOD) ddxv295.8 ? ml/m2 ? LV ESV SP 4CH (MOD) 84.3 ? ml ? LV ESV SP 2CH (MOD) 45 ? ml ? LV EDV BP ? 132 ?ml ? LV ESV BP ? 63.9 ? ml ? LV EDV BP index ? 68.59 ?ml/m2 ? LV ESV BP index ? 33.2 ? ml/m2 ? BP EF (MOD) ? 51.59 ?% ? LV mass (2D) ?284.84 ? g ? LV mass (2D) index ??148.01 ? g/m2 ? Diastolic/Systolic Function ?Value ?Units (Range) ? MV E-wave Vmax ?1.5 ?m/sec ? LV septal e' Vmax ?? 0.03 ? m/sec ? LV lateral e' Vmax ??0.03 ? m/sec ? LV average e' Vmax ??0.03 ? m/sec ? LV E:e' septal ratio50 ? ratio ? LV E:e' lateral rati50 ? ratio ? LV average E:e' rati50 ? ratio ? Aortic Valve ?Value ?Units (Range) ? AV Vmax ? 2.94 ? m/sec ? AV VTI ?58 ? cm ? AV peak gradient ?34.57 ?mmHg ? AV mean gradient ?16 ? mmHg ? LVOT Vmax ? 1.03 ? m/sec ? LVOT VTI ?21 ? cm ? LVOT peak gradient ??4 ?mmHg ? LVOT mean gradient ??2 ?mmHg ? DOI (VTI) ? 0.36 ? ratio ? DOI (Vmax) ?0.35 ? ratio ? Mitral Valve ?Value ?Units (Range) ? MV Vmax ? 1.55 ? m/sec ? MV VTI ?33.4 ? cm ? MV peak gradient ?9.61 ? mmHg ? MV mean gradient ?5 ?mmHg ? Tricuspid Valve ?Value ?Units (Range) ? TR Vmax ? 2.3 ?m/sec ? TR peak gradient ?21.16 ?mmHg ? RAP ? 3 ?mmHg ? RVSP ?24 ? mmHg ? Wall Motion: Segment Name ?Rest ? Base-Anteroseptal ?? Normal ? Base-Anterior ? Normal ? Base-Anterolateral ??Normal ? Base-Posterolateral Normal ? Base-Inferior ? Normal ? Base-Inferoseptal ?? Normal ? Mid-Anteroseptal ?Normal ? Mid-Anterior ?Normal ? Mid-Anterolateral ?? Normal ? Mid-Posterolateral ??Normal ? Mid-Inferior ?Normal ? Mid-Inferoseptal ?Normal ? [place]-Septal ? Normal ? [place]-Anterior ? Normal ? [place]-Lateral ?Normal ? [place]-Inferior ? Normal ? [place]-Tip ?Normal ? This report has been electronically sign ed by: _ Crista Mendoza. MD Coby ? 020 14:50:33 Images reviewed and interpretation verif ied [facility] Cardiac Ultrasound Laboratory Procedure Note Crista Tenorio MD - 10/24/2020F ormatting of this note might be different from the original. Procedure: Transthoracic Echocardiogram Patient: PAMELA HUTTON(Age): [birth year](65y) Med Rec#: [id number] Sex: M Site Loc: [facility] Ht / Wt: 175(cm)/77(kg) Pt. Loc: Echo Lab BSA: 1.92 Study Date: 10/24/2020 Pt. Type: Outpati ent Tape: Referring: TIMOTHY ROSARIO Reading: Crista Tenorio ([id number]) Recreation Aide: Jose Flores [facility] Diagnosis: *Chronic systolic (congestive) heart fa ilure (I50.22) BP: 132/87 SUMMARY: 1. Mild concentric left ventricular hype rtrophy is observed.The left ventricular chamber size is normal.There is normal global left ventricular systolic function.The quanti tative left ventricular ejection fraction by biplane Walker's method is 52% with hods-hm-icoz variability. Post-cardiotomy septal wall motion is present. 2. The right ventricle is normal in size and low normal in function.The estimated pulmonary artery systolic pres sure is 24 mmHg. 3. The left atrium is severely dilated ( 101 ml/m2). The right atrium is mildly dilated. 4. A 24mm porcine bio-prosthetic aortic valve is well seated with normal function.The mean trans-valvular gradien t across the aortic valve is 16 mmHg. DOI 0.36. Mild (1+/4+) aortic valv e prosthesis regurgitation is present. 5. A 32mm prosthetic mitral valve is fun ctioning normally.The mean gradient across the mitral valve is 5 mm Hg at 75 BPM. There is a trace amount of mitral prosthesis regurgitatio n. 6. See remainder of report for additiona l findings. 7. Compared to the prior study the left ventricular ejection fraction is visually similar. The gradients across t he aortic and mitral prostheses are similar. Findings : Study Quality: Technically limited Left Ventricle: The left ventricular aakash mber size is normal. Mild concentric left ventricular hypert rophy is observed. Basal septal hypertrophy is observed. There is no evidence of LVOT obstructio n. No ventricular septal defect is visuali zed. There is normal global left ventricular systolic function. The quantitative left ventricular eject ion fraction by biplane Walker's method is 52%.with beat-to-lee ann t variability. There are left ventricular segmental wa ll motion abnormalities present, as shown in the diagram below. Post-cardiotomy septal wall motion is p resent. Left Atrium: The left atrium is severely dilated.101 ml/m2 The inter-atrial septum appears intact without evidence of shunting. Right Ventricle: The right ventricle is normal in size. Right ventricular global systolic funct ion is low normal. The free wall of the right ventricle ap pears hypokinetic. The estimated pulmonary artery systolic pressure is 24 mmHg. The estimated right atrial pressure is 3 mmHg. Right Atrium: The right atrium is mildly dilated. Aortic Valve: The peak instantaneous tra ns-valvular gradient across the aortic valve is 34.5744 mmHg.Obtaine d from the apical position with the imaging CW probe. The mean trans-valvular gradient across the aortic valve is 16 mmHg.DOI 0.36 The size of the prosthetic aortic valve is 24mm. The prosthetic aortic valve was implant ed on 01/19/2014. A porcine bio-prosthetic aortic valve i s present. The prosthetic aortic valve leaflets ar e normal. The bio-prosthetic aortic valve appears well seated with normal function. Mild (1+/4+) aortic valve prosthesis re gurgitation is present. Mitral Valve: The mean gradient across t he mitral valve is 5 mmHg.at 75 BPM. The size of the prosthetic mitral valve is 32mm. The prosthetic mitral valve was implant ed on 01/19/2014. A bio-prosthetic mitral valve is presen t. The bio-prosthetic mitral valve leaflet s are normal. The bio-prosthetic mitral valve appears to be functioning normally. There is a trace amount of mitral prost hesis regurgitation. Tricuspid Valve: The tricuspid valve jody ears normal in structure and function. There is mild (1+/4+) tricuspid regurgi tation present. Pulmonic Valve: The pulmonic valve appea rs normal in structure and function. Pericardium: The pericardium appears nor mal and there is no evidence of a pericardial effusion. A pericardial fat pad is visualized. Aorta: There is mild dilatation of the a ortic root.4.0 cm There is moderate dilatation of the asc ending aorta.4.5 cm Pulmonary Artery: The main pulmonary art santos appears normal. Venous: The inferior vena cava appears n ormal in size. There is a greater than 50% respiratory change in the inferior vena cava dimension. Misc: Two-dimensional echo, spectral Dop pler and color Doppler performed. Chambers 2D Value Units (Range) IVSd (2D) 1.8 cm LVPWd (2D) 1.2 cm IVS:LVPW ratio (2D) 1.5 ratio RWT (2D) 0.65 ratio RWT PW (2D) 0.52 ratio LVIDd (2D) 4.6 cm LVIDs (2D) 3.3 cm LVIDd (2D) index 2.39 cm/m2 LVIDs (2D) index 1.71 cm/m2 LV FS (2D) 28.26 % EF Teichholz (2D) 54.66 % Ao root diameter (2D4 cm (2.1 - 3.6) Ascending Ao 4.5 cm (2 - 3.5) Volumes/Mass Value Units (Range) LA Area 4 CH 44 cm2 (<21) RA AREA 4CH 18 cm2 LA ESV BP (MOD) oovd968.8 ml/m2 LV ESV SP 4CH (MOD) 84.3 ml LV ESV SP 2CH (MOD) 45 ml LV EDV BP 132 ml LV ESV BP 63.9 ml LV EDV BP index 68.59 ml/m2 LV ESV BP index 33.2 ml/m2 BP EF (MOD) 51.59 % LV mass (2D) 284.84 g LV mass (2D) index 148.01 g/m2 Diastolic/Systolic Function Value Units (Range) MV E-wave Vmax 1.5 m/sec LV septal e' Vmax 0.03 m/sec LV lateral e' Vmax 0.03 m/sec LV average e' Vmax 0.03 m/sec LV E:e' septal ratio50 ratio LV E:e' lateral rati50 ratio LV average E:e' rati50 ratio Aortic Valve Value Units (Range) AV Vmax 2.94 m/sec AV VTI 58 cm AV peak gradient 34.57 mmHg AV mean gradient 16 mmHg LVOT Vmax 1.03 m/sec LVOT VTI 21 cm LVOT peak gradient 4 mmHg LVOT mean gradient 2 mmHg DOI (VTI) 0.36 ratio DOI (Vmax) 0.35 ratio Mitral Valve Value Units (Range) MV Vmax 1.55 m/sec MV VTI 33.4 cm MV peak gradient 9.61 mmHg MV mean gradient 5 mmHg Tricuspid Valve Value Units (Range) TR Vmax 2.3 m/sec TR peak gradient 21.16 mmHg RAP 3 mmHg RVSP 24 mmHg Wall Motion: Segment Name Rest Base-Anteroseptal Normal Base-Anterior Normal Base-Anterolateral Normal Base-Posterolateral Normal Base-Inferior Normal Base-Inferoseptal Normal Mid-Anteroseptal Normal Mid-Anterior Normal Mid-Anterolateral Normal Mid-Posterolateral Normal Mid-Inferior Normal Mid-Inferoseptal Normal [place]-Septal Normal [place]-Anterior Normal [place]-Lateral Normal [place]-Inferior Normal [place]-Tip Normal This report has been electronically sign ed by: _ Crista Tenorio MD 10/24/2020 14 :50:33 Images reviewed and interpretation verif ied [facility] Cardiac Ultrasound Laboratory Lali Whelan MD ECHO ORDERABLES Performing Organization Address City/State/ZIP Code Phon e Number [facility] documented in this encounter Visit Diagnoses Diagnosis Chronic systolic heart failure documented in this encounter Care Teams Newspaper Vendor Relationship Specialty Start Date End Date Pricila Geller APRN PCP - General Family Medicine 11/24/18 [place] [address] documented as of this encounter
--- OUTSIDE RECORDS SUMMARY | 2022-05-20 07:38 | XMS_ITS | Encounter Summary ---
:1955 Author Organization [facility] [place] [address] Care Team Providers Name Role Phone Pricila Geller APRN Primary Care Provider Reason for Visit Reason Comments Medication Management Patient Education Encounter Details Date Type Department Care Team Description 08/25/2020 Specialty Pharmacy Pharmacy at [facility] KENNETH Serrano Managemen t; Patient [facility] [place] [address] Social History Tobacco Use Types Packs/Day Years [...] documented as of this encounter Progress Notes Zach Ernst RPH - 08/25/2020 10:14 AM EDT Clinical Management Plan: Refill Specialty Pharmacy Consultation; Zach Ernst RPH Comprehensive Medication Management (CMM) Cong Missy Bill Mr. Cong Khan is a 65 y.o. (1955) male who was contacted in regard to a specialty medication refill reminder. Spoke with patient regarding entresto. A review of the medication therapy was performed. The medication was Refilled as scheduled, and all medication related questions and concerns were addressed. The specialty pharmacy staff will follow up with the patient 5-7 days prior to next refill. Cong requested a 90 day supply for his entresto, pending a new order accordingly. Was a change made to the Care Plan: no If yes, should the medication be held: No Assessment and Recommendations: Title Type of Medication Management: chronic disease management, targeted medication review Referred By: pharmacist Recipient: beneficiary Provider: plan sponsor pharmacist [place] [facility] [place] Method of Contact: by telephone Cognitive Ability: good Cognitive Impairment Status Verified this Year: no Allergies and Drug intolerance: No Known Allergies Medication Reconciliation Discrepancies (compared to [facility] med list) -none New medications: no New [...] by pharmacy Refills needed for supportive medications: yes, ordered or provider notified Are you experiencing any side effects from your medications? no Pt understands no changes to current drug regimen were made at the appointment and that [facility] is providing recommendations (summary located at top of note) for provider review and follow up. Zach Ernst RPH 08/25/20 10:21 AM documented in this encounter Plan of Treatment Upcoming Encounters Date Type Specialty Care Team Description 06/16/2022 Laboratory Appointment Lab 06/16/2022 Office Visit Cardiology Gianna Lorenzana PA [facility] Cardiology Dept [place], [place] [address] (Wo rk) Scheduled Procedures Name [...] on filedocumented in this encounter Care Teams Bowling Ball Finisher Relationship Specialty Start Date End Date Pricila Geller APRN PCP - General Family Medicine 11/24/18 [address] [place] [address] documented as of this encounter
--- OUTSIDE RECORDS SUMMARY | 2022-05-20 07:38 | XMS_ITS | Encounter Summary ---
:1955 Author Organization [facility] [place] [address] Care Team Providers Name Role Phone Vielka Gellerh JOELLE Primary Care Provider Reason for Referral Consultation (Routine) - Closed Specialty Diagnoses / Procedures Referred By Contact Refer red To Contact General Surgery Diagnoses RUQ pain Calculus of bile duct without cholangitis or cholecystitis without obstruction Edwin Grubbs, [facility] Gen Surgery 4l FOOD SERVICE AIDE [facility] [place] [address] [place] [address] Phone: Fax: Referral ID Status Reason Start Date Expiration Date Visits V isits Requested Authorized [id number] Closed Consult, 2021 2022 1 1 Test & Treat Encounter Details Date Type Department Care Team Description 2021 Telephone Gastroenterology at [facility] Edwin Grubbs, [facility] [place] [address] [facility] [phone] [place], [place] [address] (Wo rk) Social History Tobacco [...] this encounter Miscellaneous Notes Telephone Encounter - Edwin Grubbs APRN - 2021 4:27 PM EST Called and spoke with patient regarding cholelithiasis found on recent right upper quadrant ultrasound 01/09/2021. The ultrasound did not reveal cholecystitis. We discussed that this may or may not be contributing to his symptoms. We discussed that having a cholecystectomy may or may not improve his symptoms, especially if the symptoms are related to a functional GI problem. Cong would like a referral to general surgery for consultation to discuss all of his options. documented in this encounter Plan of Treatment Upcoming Encounters Date Type Specialty Care Team Description 06/16/2022 Laboratory Appointment Lab 06/16/2022 Office Visit Cardiology Gianna Lorenzana PA [facility] Cardiology Dept [place], [place] [address] (Wo rk) Scheduled Procedures Name [...] Tad A, Understanding Action Plan [facility] Note: Formatting of this note might be d ifferent from the original. Maintain 100% adherence to Entresto twic e daily regimen documented as of this encounter Visit Diagnoses Diagnosis RUQ pain Abdominal pain, right upper quadrant Calculus of bile duct without cholangiti s or cholecystitis without obstruction Calculus of bile duct without mention of cholecystitis or obstruction documented in this encounter Care Teams Sewer And Drain Technician Relationship Specialty Start Date End Date Pricila Geller APRN PCP - General Family Medicine 11/24/18 [facility] [place] [address] documented as of this encounter
--- OUTSIDE RECORDS SUMMARY | 2022-05-20 07:38 | XMS_ITS | Encounter Summary ---
:1955 Author Organization [place] [address] Care Team Providers Name Role Phone Pricila Geller APRN Primary Care Provider Reason for Visit Reason Comments Medication Management Patient Education Encounter Details Date Type Department Care Team Description 07/25/2020 Specialty Pharmacy Pharmacy at [facility] KENNETH Velazquez Managemen t; [place] [address] Social History Tobacco Use Types Packs/Day Years [...] encounter Progress Notes Caroline Wilson RPH - 07/25/2020 8:10 AM EDT Specialty Pharmacy Consultation; Caroline Wilson RPH Comprehensive Medication Management (CMM) Cong Khan Diagnosis: Heart Failure Therapy Start Date: ~07/2019 Contact in person or via telephone: Phone Mr. Cong Khan is a 65 y.o. (1955) male who was contacted in regard to specialty medication. Spoke with patient regarding ENTRESTO. A review of the medication therapy was performed. The medication was Refilled as scheduled, and all medication related questions and concerns were addressed. The specialty pharmacy staff will follow up with the patient 5-7 days prior to next refill. Is the patient willing to proceed with the Clinical Assessment? Yes Summary and Recommendations: Cong Khan is a pleasant 65 y.o. male who was contacted for a consultation on Entresto. The patient was able to verbalize understanding of the directions, storage requirements, clinical rationale,and possible adverse events of the medication. Proper timing, administration, and counseling on missed doses was reviewed with the patient. Allergies, medications, and medical conditions were reviewed at length including review for possible contraindications and interactions. The patient was informed of the variety of services that the Specialty Pharmacy will provide to them as one of our patients. Cong reports no changes in his medications, medical conditions, or allergies. He has had no adherence issues with the twice daily dosing. Cong reports he's been eating a healthier diet and understands the importance of this and that he should be avoiding salt substitutes as they contain potassium.Cong confirms he has been checking his blood pressure regularly to avoid hypotension. He understands the signs and symptoms of hypotension and I re counseled him on symptoms to monitor including coughing, chest tightness, and shortness of breath. I have no recommendations at this time. Clinic follow-up needed: yes - Cong has an appointment in October for labs Allergies and Drug intolerance: No Known Allergies Problem List: Patient Active Problem List Diagnosis Code ??? Acute systolic congestive heart failure I50.21 ??? Atrial fibrillation I48.91 ??? Hypertension I10 ??? 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 Stroke I63.9 ??? Valvular disease I38 ??? 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 Medication Reconciliation Discrepancies (compared to [facility] med list) -no Medication Adherence Patient reported X missed doses [...] Refills needed for supportive medications: not needed Medication List: Current Outpatient Medications Medication Sig Dispense Refill ??? sacubitriL-valsartan (Entresto) 24-26 mg Tablet tablet Take 1 tablet by mouth 2 times daily. 60 tablet 3 ??? torsemide (Demadex) 20 mg [...] in am. 90 tablet 3 ??? apixaban (ELIQUIS) 2.5 mg Tablet Take 1 tablet by mouth 2 times daily. 180 tablet 3 ??? tamsulosin (FLOMAX) 0.4 mg Capsule 0.4 mg daily. 11 ??? finasteride (PROSCAR) 5 mg Tablet 5 mg daily. 11 ??? aspirin 81 mg Tablet, Chewable Take 81 mg by mouth daily. 30 tablet 3 No current facility-administered medications for this visit. Most Recent Vitals: Ht Readings from Last 1 Encounters: 12/07/19 175.3 cm (5' 9) Wt Readings from Last 3 Encounters: 12/07/19 76.7 kg (169 lb) 08/24/19 77.7 kg (171 lb 6.4 oz) 06/15/19 75.3 kg (166 lb) Temp Readings from Last 3 Encounters: 09/08/17 36.4 ??C (97.5 ??F) (Oral) BP Readings from Last 3 Encounters: 02/15/20 (!) 133/101 12/07/19 (!) 83/58 08/24/19 114/83 Pulse Readings from Last 3 Encounters: 12/07/19 79 08/24/19 77 06/15/19 76 Pertinent Lab values: Lab Results Component Value Date NA 142 02/14/2020 K 3.6 02/14/2020 CL 105 02/14/2020 CO2 30 02/02/2020 BUN 34 02/14/2020 CREATININE 1.84 02/14/2020 GLUCOSE 105 02/14/2020 CALCIUM 8.5 02/02/2020 Lab Results Component Value Date ALT 13 06/05/2019 AST 13 06/05/2019 ALKPHOS 36 (L) 06/05/2019 BILITOT 0.3 06/05/2019 BILIDIR 0.1 09/02/2017 ALBUMIN 4.5 06/05/2019 PROT 7.8 06/05/2019 Lab Results Component Value Date WBC 5.1 06/05/2019 HGB 13.7 06/05/2019 HCT 40.7 06/05/2019 MCV 94.4 (H) 06/05/2019 PLATELET 195 06/05/2019 Lab Results Component Value Date HA1C 5.0 08/31/2017 Immunization History Administered Date(s) Administered ??? Influenza Vaccine PF, Quadrivalent 09/07/2017 Assessment and Recommendations: Title Type of Medication Management: chronic disease management, targeted medication review Referred By: provider Recipient: beneficiary Provider: plan sponsor pharmacist Visit Type: [facility] Follow-up Method of Contact: by telephone Cognitive Ability: good Cognitive Impairment Status Verified this Year: no Patient Counseling Counseled the patient on the following: doses and administration discussed, safe handling, storage, and disposal discussed, possible adverse effects and management discussed, lab monitoring and follow-up discussed, therapeutic rationale discussed, cost of medications and cost implications discussed, adherence and missed doses discussed, pharmacy contact information discussed, health goals discussed, monitoring medication discussed, self-monitoring discussed, stop medication discussed, timing of medications discussed, lifestyle modification education, referral needs discussed Drug Medication Management Summary Topics discussed: doses and administration discussed, safe handling, storage, and disposal discussed, possible adverse effects and management discussed, lab monitoring and follow-up discussed, therapeutic rationale discussed, cost of medications and cost implications discussed, adherence and missed doses discussed, pharmacy contact information discussed, health goals discussed, monitoring medication discussed, self-monitoring discussed, stop medication discussed, timing of medications discussed, lifestyle modification education, referral needs discussed Time spent: 1-15 min Treatment Outcomes 05/19/2020 1331 Disease progression: Stable Patient Overall Status: Stable Reviewed in detail with patient: Dose appropriateness based on recommended standard dosing Current medication list including OTC medications Medication and disease problems Allergies Comorbid conditions/ Problem List Past adverse events if any Special needs of the patient including physical and cognitive limitations Goals of therapy and management strategies Warnings, precautions, and contraindications Side effects Drug-drug and drug-food interactions Administration instructions including dose, frequency and method Handling, storage, and disposal Verifying expiration dates on products before use Rotating medication inventory to use oldest product first Relevant lab data Patient verbalizes understanding and is able to read-back instructions on self-administration/injection, proper storage, drug stability, importance of adherence and management strategies, side effect avoidance and mitigation strategies, and interruptions in therapy: Yes Physical and Cognitive Assessment: Functional limitations identified: no Cognitive limitations identified: no Concern regarding orientation/memory: no Concern with reasoning/judgement: no Is patient a fall risk: no Other needed information: no Social Assessment: Does the patient have a primary health care manager? no Does the patient have an emergency contact on file: Yes Does patient need referral to social service liaison: No Does patient need referral to advocacy group: No Home Health Assessment: Is the patient in a safe home environment? Yes Is the patient able to store their medication as directed? Yes Does the patient have a support network at home? Yes Reviewed potential home safety hazards with patient: No Economic Assessment: Patient is agreeable to medication copay: yes Copay Amount: 0 Day Supply: 30 Date Needed: 08/01/20 Copay assistance required: no Therapy Assessment: Current Medication Dosing/Route/Frequency: Entresto 24-26mg take 1 tab po twice a day Appropriate Therapy: Yes Effective: yes Patient-Reported Side Effects: no Patient Goals: Goals ??? DH Home Medication Compliance and Understanding Maintain 100% adherence to Entresto twice daily regimen Is the patient on track to achieve goals of therapy? yes Care Plan and Interventions: Care Plan Reviewed and Approved by both Pharmacist and Patient: Yes Did Care Plan Change? No Interventions (if applicable): No Patient experienced change in condition that affects treatment: no Additional care/services needed: no Educational information or adherence tools provided: Yes Additional equipment/supplies required: no Patient Status and Counseling: Recent Changes to Activity Levels: no Recent Swelling in Extremities: no Weight Changes: no Actively Monitoring Blood Pressure at Home: Yes Recent BP/HR Measurements: 110/75, HR 76 Recent Symptoms of Hypotension: no Recent Respiratory Symptoms (SOB, Wheezing, Cough): no Pharmacist follow-up needed: Yes Patient Satisfaction with Care/Services Provided: Yes Informed patient of specialty pharmacy services: Yes -Patient received welcome packet: Yes Date Received: 07/2019 Delivery Method: Mail -Patient returned signed Rights & Responsibilities: Yes Date Received: 07/2019 Delivery Method: Mail -Patient is aware a licensed pharmacist is available 24 hours a day, 7 days a week to discuss medication-related questions or concerns: Yes -Patient verbalizes understanding of education on the common side effect profile of the medication: Yes -The patient is able to call 911 or seek urgent care if signs/symptoms of allergy or harmful adversereactions occur: Yes Patient Satisfaction with Therapy: yes Patient understands no changes to current drug regimen were made at the appointment and that [facility] is providing recommendations (summary located at top of note) for provider review and follow up. Caroline Wilson RPH 07/25/20 8:15 AM documented in this encounter Plan of Treatment Upcoming Encounters Date Type Specialty Care Team Description 06/16/2022 Laboratory Appointment Lab 06/16/2022 Office Visit Cardiology Gianna Lorenzana PA [facility] Cardiology Dept [place], [place] [address] (Wo rk) Scheduled Procedures Name [...] on filedocumented in this encounter Care Teams Fabric Worker Relationship Specialty Start Date End Date Pricila Geller APRN PCP - General Family Medicine 11/24/18 [address] [place] [address] documented as of this encounter
--- OUTSIDE RECORDS SUMMARY | 2022-05-20 07:38 | XMS_ITS | Encounter Summary ---
:1955 Author Organization [facility] Address [address] [place] [address] Care Team Providers Name Role Phone BenjamínPricila marcus JOELLE Primary Care Provider Encounter Details Date Type Department Care Team Description 01/09/2021 Hospital Encounter [place] [facility] [place] Grubbs Chronic cough; [facility] JOELLE Louis Heartburn; Drive [facility] RUQ pain; [place], [place] Center Fecal urgency; [id number] [place], [place] Dysphagia, unspecified type; [phone] History of hepatitis C Social History Tobacco [...] tamsulosin (FLOMAX) 0.4 mg 0.4 mg daily. 2018 Capsule finasteride (PROSCAR) 5 mg 5 [...] Visit Cardiology Gianna Lorenzana PA [facility] er Cardiology [place], [place] [address] (Wo rk) Scheduled Procedures Name Priority Associated [...] Name Priority Date/Time Associated Diagnosis Comme nts US ABDOMEN LIMITED Routine 01/09/2021 10:16 Chronic coug h Results for this HEPATOLOGY PROTOCOL AM EST Heartburn procedure are in RUQ pain the results Fecal urgency section. Dysphagia, unspecified type History of hepatitis C documented in this encounter Results US Abdomen Limited Hepatology Protocol (01/09/2021 10:16 [...] Electronically signed by: Aaron Mueller DO, Radiology [place] ([phone]), at 10:33 AM ? Aaron Mueller, Staff Physician Electronically Signed Final Report ?? 10:41 am Narrative 01/09/2021 10:41 AM EST Abdominal ? (Signed Final 01/09/2021 10:41 am) PATIENT INFO: ID #: ? [id number] ?: ??[birth year] (65 yrs)(M) Name: ? MEDINA Missy PAMELA ?Visit Date: 01/09/2021 10:17 am PERFORMED BY: Performed By: ? Cristobal Saucedo RDMS Attending: ?Aaron Mueller DO Referred By: ?EDWIN GRUBBS Location: ? [facility] SERVICE(S) PROVIDED: UABDLIM - Hepatology Protocol - Abdomin al ? 20456 Limited Survey Single Organ or Quadrant - [id number] INDICATIONS: RUQ abdominal pain, history of hepatiti [...] 10:4 1 am) PATIENT INFO: ID #: [id number] : [birth year] (65 y rs)(M) Name: MEDINA KHAN Visit Date: 01/09 10:17 am PERFORMED BY: Performed By: Cristobal Saucedo RDMS Attending: Aaron Mueller DO Referred By: EDWIN GRUBBS Location: [facility] SERVICE(S) PROVIDED: UABDLIM - Hepatology Protocol - Abdomin al 03157 Limited Survey Single Organ or Quadrant - [id number] INDICATIONS: RUQ abdominal pain, history of hepatiti [...] below. Electronically signed by: Aaron Mueller DO [facility] ([phone]), at 10:33 AM Aaron Mueller, Staff Physician Electronically Signed Final Report 01/09 10:41 am Edwin Grubbs APRN [facility] GEN ORDERABLES documented in this encounter Visit Diagnoses Diagnosis Chronic cough Cough Heartburn RUQ pain Abdominal pain, right upper quadrant Fecal urgency Dysphagia, unspecified type History of hepatitis C Personal history of other infectious and parasitic disease documented in this encounter Care Teams Camp Guard Relationship Specialty Start Date End Date Pricila Geller APRN PCP - General Family Medicine 11/24/[address] [place] [address] [place] [address] documented as of this encounter
--- OUTSIDE RECORDS SUMMARY | 2022-05-20 07:38 | XMS_ITS | Encounter Summary ---
:1955 Author Organization [facility] [place] [address] Care Team Providers Name Role Phone Pricila Geller APRN Primary Care Provider Reason for Visit Reason Comments Medication Management Encounter Details Date Type Department Care Team Description 04/17/2020 Specialty Pharmacy Pharmacy at [facility] Rex Valladares, [place] [address] Social History Tobacco Use Types Packs/Day Years [...] documented as of this encounter Progress Notes Rex Valladares [facility] - 04/17/2020 5:14 PM EDT Clinical Management Plan: Refill Specialty Pharmacy Consultation; Rex Valladares [facility] Comprehensive Medication Management (CMM) Cong Khan is [...] beneficiary Provider: plan sponsor pharmacist Visit Type: [facility] Follow-up Method of Contact: by telephone Cognitive Ability: good Cognitive Impairment Status Verified this Year: no Allergies and Drug intolerance: No Known Allergies Medication Reconciliation Discrepancies (compared to [facility] med list) -none New medications: no New [...] were made at the appointment and that [facility] is providing recommendations (summary located at top of note) for provider review and follow up. Rex Valladares RPH 04/17/20 5:14 PM documented in this encounter Plan of Treatment Upcoming Encounters Date Type Specialty Care Team Description 06/16/2022 Laboratory Appointment Lab 06/16/2022 Office Visit Cardiology Gianna Lorenzana PA [facility] Cardiology Dept [place], [place] [address] (Wo rk) Scheduled Procedures Name [...] Tad A, Understanding Action Plan [facility] Note: Formatting of this note might be d ifferent from the original. Maintain 100% adherence to Entresto twic e daily regimen documented as of this encounter Visit Diagnoses Not on filedocumented in this encounter Care Teams Hand Marker Relationship Specialty Start Date End Date Pricila Geller APRN PCP - General Family Medicine 11/24/18 [address] [place] [address] documented as of this encounter
--- OUTSIDE RECORDS SUMMARY | 2022-05-20 07:38 | XMS_ITS | Encounter Summary ---
:1955 Author Organization [facility] Address [address] [place] [address] Care Team Providers Name Role Phone Pricila Geller APRN Primary Care Provider Encounter Details Date Type Department Care Team Description 12/31/2020 Orders Only Pulmonology at [facility] Zach Darby MD Chronic cough (Primary [facility]) [place] [address] Pulmonary Medicine [phone] [place] [address] Social History Tobacco Use Types Packs/Day Years [...] documented as of this encounter Progress Notes Chloe Thrasher - 12/31/2020 2:53 PM EST documented in this encounter Plan of Treatment Upcoming Encounters Date Type Specialty Care Team Description 06/16/2022 Laboratory Appointment Lab 06/16/2022 Office Visit Cardiology Gianna Lorenzana PA [facility] er Cardiology Dept [place], [place] [address] (Wo rk) Scheduled Procedures Name [...] and Facing Tad A, Understanding Action Plan [facility] Note: Formatting of this note might be d ifferent from the original. Maintain 100% adherence to Entresto twic e daily regimen documented as of this encounter Results Pulmonary Function Testing (01/09/2021 3:18 PM EST) P athologist Signature FVC Actual 3.95 L [facility]AS PFT Pre-BD FVC Pre-BD % of 100 % COMPAS PFT Predicted FVC Predicted 3.96 L COMPAS PFT FVC Pre-BD -0.02 COMPAS PFT Z-Score FVC Lower 2.96 L COMPAS PFT Limits of Normal FEV1 Actual 2.61 L COMPAS PFT Pre-BD FEV1 Pre-BD % 86 % COMPAS PFT of Predicted FEV1 Predicted 3.03 L COMPAS PFT FEV1 Pre-BD -0.86 COMPAS PFT Z-Score FEV1 Lower 2.21 L COMPAS PFT Limits of Normal FEV1 / FVC 66 % [facility]AS PFT Actual Pre-BD FEV1/FVC Pre-BD -1.38 COMPAS PFT Z-Score FEV1 / FVC LLN 64 % COMPAS PFT [id number] Actual 1.44 L/s COMPAS PFT Pre-BD [id number] Pre-BD 60 % COMPAS PFT % of Predicted [id number] 2.40 L/s COMPAS PFT Predicted [id number] Pre-BD -1.12 COMPAS PFT Z-Score Specimen (Source) Anatomical Location Collection Method / Collectio n Time Received Time / Laterality Volume Narrative COMPAS PFT - 01/09/2021 3:18 PM EST This result has an attachment that is no t available. SUMMARY: FEV1, FVC, and FEV1/VC are with in normal limits. IMPRESSION: Normal spirometry. Procedure Note Isac Kurtz MD - 01/10/2021Formatt ing of this note might be different from the original. SUMMARY: FEV1, FVC, and FEV1/VC are with in normal limits. IMPRESSION: Normal spirometry. Zach Darby MD PFT ORDERABLES Performing Organization Address City/State/ZIP Code Phon e Number COMPAS PFT XR Chest PA & Lateral (Generic) (01/09/2021 [...] 2020 EXAMINATION: XR CHEST PA AND LATERAL ([employer] NERIC) CLINICAL HISTORY: Chronic cough TECHNIQUE: PA and [...] For questions regarding this report, please contact th e number below. Zach Darby MD IMG DX ORDERABLES documented in this encounter Visit Diagnoses Diagnosis Chronic cough - Primary Cough Chronic cough Cough Chronic cough Cough documented in this encounter Care Teams Entry Level Account Manager Relationship Specialty Start Date End Date Pricila Geller APRN PCP - General Family Medicine 11/24/18 [place] [address] documented as of this encounter
--- OUTSIDE RECORDS SUMMARY | 2022-05-20 07:38 | XMS_ITS | Encounter Summary ---
:1955 Author Organization [facility] [place] [address] Care Team Providers Name Role Phone Pricila Geller GUYLINE OPERATOR Primary Care Provider Encounter Details Date Type Department Care Team Description 02/13/2020 Telephone Cardiology at [facility] [place] [address] Social History Tobacco Use Types Packs/Day [...] this encounter Miscellaneous Notes Telephone Encounter - Prudence Lowry RN - 02/13/2020 11:19 AM EDT Call to pt re: labs locally before tele-visit with Dr. You 02/15/20. He will go to [facility]. Reports he does have a computer, uses [employer]. Advised to go to [employer] to download instructions in preparation for tele-visit. He will do so. documented in this encounter Plan of Treatment Upcoming Encounters Date Type Specialty Care Team Description 06/16/2022 Laboratory Appointment Lab 06/16/2022 Office Visit Cardiology Gianna Lorenzana PA [facility] Cardiology Dept [place], [place] [address] (Wo rk) Scheduled Procedures Name Priority [...] on filedocumented in this encounter Care Teams Administrative Assistant Front Desk Relationship Specialty Start Date End Date Pricila Geller APRN PCP - General Family Medicine 11/24/18 [address] [place] [address] documented as of this encounter
--- OUTSIDE RECORDS SUMMARY | 2022-05-20 07:38 | XMS_ITS | Encounter Summary ---
:1955 Author Organization [facility] [place] [address] Care Team Providers Name Role Phone BenjamínPricila marcus JOELLE Primary Care Provider Reason for Referral Diagnostic Test (Routine) - Closed Specialty Diagnoses / Procedures Referred By Contact Refer red To Contact Cardiology Diagnoses Chronic systolic heart failure Lali Vu [facility] Non-Inv Card Lab Procedures Echocardiogram Transthoracic([facility]) [place] [address] [place] [address] Referral ID Status Reason Start Date Expiration Date Visits V isits Requested Authorized [id number] Closed Specialty 02/15/2020 02/14/2021 1 1 Service Requested Encounter Details Date Type Department Care Team Description 02/15/2020 TH Visit Cardiology at [facility] Avelino Whelan Chronic systolic (TeleHealth) [facility] Lali Garland MD heart failure [facility] [address] [place] [address] [phone] Social History Tobacco Use Types Packs/Day Years [...] Sign Reading Time Taken Comments Blood Pressure 133/101 02/15/2020 12:55 PM EDT Pulse - - Temperature - - Respiratory Rate - - Oxygen Saturation - - Inhaled Oxygen Concentration - - Weight - - Height - - Body Mass Index - - documented in this encounter Progress Notes Lali Vu MD - 02/15/2020 9:40 AM EDT HEART FAILURE TELE VISIT NOTE Cong Khan 02/15/20 The patient consented to this being a virtual visit. HPI: Cong Khan is a 65 y.o. year old male with a PMH of nonischemic (valvular) CMP who presents for routine follow-up. Since the last visit, there have been no interim illnesses or hospitalizations. By way of history, he has a history of both mitral and aortic valve replacements in [place] and [place] in 2010 and 2013. He has a history of heart failure with reduced ejection fraction which mostrecently had been in the high 30s, now recovered to 57% on guideline directed medical therapy who presents for follow-up. At our last visit, the patient complained of exercise intolerance and fatigue. He denied chest pain but endorsed exertional shortness of breath. We obtained a nuclear stress test which revealed a smallarea of mild ischemia but a normal ejection fraction. He had a repeat transthoracic echocardiogram at the same time which revealed an EF of 57%, normal-sized left ventricle, moderate left ventricular hypertrophy, a mildly reduced right ventricle and severely dilated left atrium. His interim labs has been improved with his creatinine falling from 2.17-1.84. His potassium is 3.6. He has tolerated the Entresto 24/26 mg twice a day well. He continues on half dose apixaban for anticoagulation given his atrial fibrillation. He is on metoprolol 150 mg in the morning and 100 mg in the evening and has had a stable weight on torsemide 20 mg daily. His primary concern today is that he works for [employer] program and is worried about what additional risk he is at from COVID-19. Brief ROS: No new orthopnea, PND, LE edema. No lightheadedness, dizziness, syncope/pre- syncope. No new CP. Medications: Current Outpatient Medications Medication Sig Dispense Refill ??? sacubitriL-valsartan (Entresto) 24-26 mg Tablet tablet Take 1 tablet by mouth 2 times daily. 60 tablet 3 ??? metoprolol succinate XL (Toprol-XL) 100 mg Tablet Sustained Release 24 hr Take 100 mg by mouth daily. In am with 50 mg tab total 150 mg in am. ??? metoprolol succinate XL (Toprol-XL) 50 mg Tablet Sustained Release 24 hr Take 50 mg by mouth. Take 5 tab in PM with 100 mg tab and 2 tabs in PM ??? apixaban (ELIQUIS) 2.5 mg Tablet Take 1 tablet by mouth 2 times daily. 180 tablet 3 ??? tamsulosin (FLOMAX) 0.4 mg Capsule 0.4 mg daily. 11 ??? finasteride (PROSCAR) 5 mg Tablet 5 mg daily. 11 ??? aspirin 81 mg Tablet, Chewable Take 81 mg by mouth daily. 30 tablet 3 ??? torsemide (DEMADEX) 20 mg Tablet Take 2 tablets by mouth daily. (Patient taking differently: Take 20 mg by mouth daily.) 30 tablet 3 Objective Data: VS at home: 133/101, normally 101/70per patient Weight Today: N/A Last Reported Dry/Goal Weight: N/A Labs: Lab Results Component Value Date WBC 5.1 06/05/2019 HGB 13.7 06/05/2019 HCT 40.7 06/05/2019 MCV 94.4 (H) 06/05/2019 PLATELET 195 06/05/2019 Recent Labs 02/14/20 NA 142 K 3.6 CL 105 BUN 34 CREATININE 1.84 GLUCOSE 105 ProBNP Date Value Ref Range Status 12/07/2019 539 (H) <=125 pg/mL Final 06/15/2019 950 (H) <=125 pg/mL Final 04/02/2019 1,150 (H) <=125 pg/mL Final Lab Results Component Value Date INR 1.1 06/05/2019 Assessment: Cong Khan is a 65 y.o. year old male with a PMH of nonischemic HFrEF (likely valvular) with EFrecovery from 38% to 57% on Entresto who presents today for follow-up visit. Overall, he is doing quite well. He is planning to begin an exercise program. We discussed the precautions he should take tocontinue his position at [employer]. Overall, his blood pressure sound like they are a bit higher. I would like to increase his Entresto in time if that possible, but for now we will not make any medication changes. I will try to see him back in the office in 3 months if possible. HF Meds Current Dose Comments (if needed) Beta-danni (if EF <40%) metoprolol 150 mg in the morning and 100 mg at night ACEi/ARB/ARNi (if EF <40%) Entresto 24/26 mg twice a day MRA (if EF <35%) not applicable Diuretic torsemide 20 mg daily HF Therapies Device/Therapy Comments (if needed) ICD/CLINICAL OPERATIONS MANAGER-P/D (if indicated) EF has improved greater than 35% Anticoagulation (if indicated) apixaban 2.5 mg twice a day for atrial fibrillation Cardiac Rehab deferred given COVID Advanced Therapy Candidate not applicable Palliative Care Referral not applicable Plan 1. No medication changes today 2. Return to clinic in 3 months 3. Plan to repeat transthoracic echocardiogram in 6 months or with any new symptoms 4. Continue to follow blood pressure and consider up titration of Entresto as tolerated Lali You MD MPH Advanced Heart Disease & Cardiac Transplant Attending 02/15/2020, 12:55 PM Established Patient New Patient Consultation 70433 (10 minute visit) 19198 (10 minute visit) 30345O (15 minute visit) 64628 (15 minute visit) 71143 (20 minute visit) 87666Y (30 minute visit) 76419 (25 minute visit) 51728 (30 minute visit) 15844T (40 minute visit) X 26637 (40 minute visit) 40737 (45 minute visit) 76841S (60 minute visit) 54365 (60 minute visit) 25586M (80 minute visit) documented in this encounter Plan of Treatment Upcoming Encounters Date Type Specialty Care Team Description 06/16/2022 Laboratory Appointment Lab 06/16/2022 Office Visit Cardiology Gianna Lorenzana PA [facility] er Cardiology Dept [place], [place] [address] (Wo rk) Scheduled Procedures Name [...] and Facing Tad A, Understanding Action Plan [facility] Note: Formatting of this note might be d ifferent from the original. Maintain 100% adherence to Entresto twic e daily regimen documented as of this encounter Results ECHOCARDIOGRAM COMPLETE (10/24/2020 1:15 PM EST) Specimen (Source) Anatomical Location Collection Method / Collectio n Time Received Time / Laterality Volume 10/24/2020 Narrative [facility] - 10/24/2020 2:51 PM EST Procedure: ?Transthoracic Echocardiogram Patient: ?PAMELA Louis ? (Age): 1955(65y) Med Rec#: ? [id number] ?Sex: ?M ? Site Loc: ? [facility] ?Ht / Wt: ??175(cm)/77(kg) Pt. Loc: ?Echo Lab ?BSA: ?1.92 Study Date: ?? 10/24/2020 ?Pt. Type: Outpatient Tape: ? Referring: AVELINO ROSARIO Reading: Crista Tenorio ([id number]) Oceanography Teacher: Jose Flores [facility] Diagnosis: *Chronic systolic (congestive) heart fa ilure (I50.22) BP: ? 132/87 SUMMARY: 1. Mild concentric left ventricular hype rtrophy is observed.The left ventricular chamber size is normal.There is normal global left ventricular systolic function.The quanti tative left ventricular ejection fraction by biplane Walker's method is 52% with whva-yx-qwyy variability. Post-cardiotomy septal wall motion is present. [...] ? cm2 ? LA ESV BP (MOD) ggvw769.8 ? ml/m2 ? LV ESV SP 4CH [...] ? Mid-Inferior ?Normal ? Mid-Inferoseptal ?Normal ? Gray-Septal ? Normal ? Gray-Anterior ? Normal ? Gray-Lateral ?Normal ? Gray-Inferior ? Normal ? Gray-Tip ?Normal ? This report has been electronically sign ed by: _ Crista Tenorio MD ? 020 14:50:33 Images reviewed and interpretation verif ied [facility] Cardiac Ultrasound Laboratory Procedure Note Crista Tenorio MD - 10/24/2020F ormatting of this note might be different from the original. Procedure: Transthoracic Echocardiogram Patient: PAMELA HUTTON(Age): [birth year]65y) Med Rec#: [id number] Sex: M Site Loc: [facility] Ht / Wt: 175(cm)/77(kg) Pt. Loc: Echo Lab BSA: 1.92 Study Date: 10/24/2020 Pt. Type: Outpati ent Tape: Referring: AVELINOWILL ROSARIO Reading: Crista Tenorio ([id number]) Oceanography Teacher: Jose Flores [facility] Diagnosis: *Chronic systolic (congestive) heart fa ilure (I50.22) BP: 132/87 SUMMARY: 1. Mild concentric left ventricular hype rtrophy is observed.The left ventricular chamber size is normal.There is normal global left ventricular systolic function.The quanti tative left ventricular ejection fraction by biplane Walker's method is 52% with iayd-xb-ggqn variability. Post-cardiotomy septal wall motion is present. [...] 4CH 18 cm2 LA ESV BP (MOD) ltkx826.8 ml/m2 LV ESV SP 4CH (MOD) 84.3 [...] Normal Mid-Posterolateral Normal Mid-Inferior Normal Mid-Inferoseptal Normal Gray-Septal Normal Gray-Anterior Normal Gray-Lateral Normal Gray-Inferior Normal Gray-Tip Normal This report has been electronically sign ed by: _ Crista Tenorio MD 10/24/2020 14 :50:33 Images reviewed and interpretation verif ied [facility] Cardiac Ultrasound Laboratory Lali Whelan MD ECHO ORDERABLES Performing Organization Address City/State/ZIP Code Phon e Number [facility] documented in this encounter Visit Diagnoses Diagnosis Chronic systolic heart failure Chronic systolic heart failure documented in this encounter Care Teams Outboard Motor Mechanic Relationship Specialty Start Date End Date Pricila Geller APRN PCP - General Family Medicine 11/24/18 [place], [place] [address] documented as of this encounter
--- OUTSIDE RECORDS SUMMARY | 2022-05-20 07:38 | XMS_ITS | Encounter Summary ---
:1955 Author Organization [facility] [place] [address] Care Team Providers Name Role Phone DuyenPricila JOELLE Primary Care Provider Encounter Details Date Type Department Care Team Description 12/16/2020 Telephone Gastroenterology at [facility] Edwin Grubbs, [facility] [place] [address] [facility] [phone] [place], [place] [address] (Wo rk) Social History Tobacco [...] this encounter Miscellaneous Notes Telephone Encounter - Milton Nur RN - 12/18/2020 12:00 PM EST Sherita Lewis, H to [facility] Gastro Clinic Nurse ??? [facility] Gastro Motility Nurse ?? 11:57 AM Hi team, Pharmacy would like to f/u on the inventory issues for the Polyethylene glycol recon soln. Would doctor consider an alternative? OR wants pt to fill elsewhere? (pt does NOT have insurance). Pharmacywill profile this rx for now till further notice from office. Please call pharmacy at [phone] with questions. Thank you very much documented in this encounter Plan of Treatment Upcoming Encounters Date Type Specialty Care Team Description 06/16/2022 Laboratory Appointment Lab 06/16/2022 Office Visit Cardiology Gianna Lorenzana PA [facility] [address] Cardiology Dept [place], [place] [address] (Wo rk) Scheduled Procedures Name [...] on filedocumented in this encounter Care Teams Household Appliance Repairer Relationship Specialty Start Date End Date Pricila Geller APRN PCP - General Family Medicine 11/24/18 [address] [place] [address] documented as of this encounter
--- OUTSIDE RECORDS SUMMARY | 2022-05-20 07:38 | XMS_ITS | Encounter Summary ---
:1955 Author Organization [facility] [place] [address] Care Team Providers Name Role Phone Pricila Geller APRN Primary Care Provider Encounter Details Date Type Department Care Team Description 01/09/2021 Procedure visit Gastroenterology at [facility] Jose Robledo Chronic cough; [facility] LUIS ALFREDO West Heartburn; [place] [address] [facility] RUQ pain; [phone] Center Fecal urgency; [place], [place] Dysphagia, unsp ecified type; [address] History of hepatitis C Social History Tobacco [...] on file documented as of this encounter Procedure Notes Jose Robledo PA - 01/09/2021 11:30 AM ESTAssociated Order(s): FIBROSCAN Procedure(s): FIBROSCAN Pre-Procedure Diagnose(s): Chronic cough; Heartburn; RUQ pain; Fecal urgency; Dysphagia, unspecifiedtype; History of hepatitis C [facility] Liver Fibrosis Assessment Report Indication: History of HCV, prior Fibroscan 05/2019 suggested F0-F1 with hepatic steatosis, repeat exam post-SVR to ensure stability Performed by: LUIS ALFREDO Ron Procedure: Vibration Controlled Transient Elastography (VCTE) or Fibroscan Marilla Protocol: Patient's identity, procedure and site were verified, confirmatory pause performed. Discussed procedure including risks and potential complications. Questions answered. Patient verbalizes understanding and wishes to proceed with Fibroscan assessment. Patient was placed in the supine position with right arm in maximum abduction to allow optimal exposure of right lateral abdomen. Patient was briefly assessed. Testing was performed in the mid-axillarylocation. 50Hz Shear Wave pulses were applied and the resulting Shear Wave and Propagation Speed wasdetected with a 3.5MHz ultrasonic signal, using the Fibroscan probe. Skin to liver capsule distance and liver parenchyma were accessed during the entire examination with the Fibroscan probe. Patient was instructed to breathe normally and abstain from sudden movements during the procedure. At least tenSheer Waves were produced; individual measurements of each Shear Wave were calculated. Patient tolerated the procedure well with no complications. Fibroscan Results: Median kPa: 4.3 Mean IQR: 14% (goal is <30 %) Number of valid measurements: 10 (at least 10 required) Number of invalid measurements: 0 Predicted fibrosis stage: F0-F1 CAP (dB/m): 187 Estimated steatosis grade: 0-1/3 % hepatocytes affected: < 33% Interpretation: Based on this Fibroscan result, history, clinical examination and review of laboratory and radiological data, this patient likely has stage 0-1 liver fibrosis and grade 0-1 steatosis affecting less than 33% of hepatocytes. Given stability of zero/low fibrosis, improvement in steatosis, and SVR achieved (HCV RNA glrqxquzek58/2020), this patient no longer needs hepatology follow-up. documented in this encounter Plan of Treatment Upcoming Encounters Date Type Specialty Care Team Description 06/16/2022 Laboratory Appointment Lab 06/16/2022 Office Visit Cardiology Gianna Lorenzana PA [facility] Cardiology Dept [place] [address] (Wo rk) Scheduled Procedures Name Priority Associated [...] Name Priority Date/Time Associated Diagnosis Comme nts [id number] Routine 01/09/2021 11:30 AM Chronic coug h Results for this EST Heartburn procedure are in RUQ pain the results Fecal urgency section. Dysphagia, unspecified type History of hepatitis C documented in this encounter Results [id number] (01/09/2021 11:30 AM EST) Narrative Jose Robledo PA - 01/09/2021 11:30 AM EST Jose Robledo PA ? 01/09/2021 11:49 AM [facility] Liver Fibrosis Asses sment Report Indication: ?? History of HCV, prior Fib roscan 05/2019 suggested F0-F1 with hepatic steatosis, repeat exa m post-SVR to ensure stability Performed by: ??LUIS ALFREDO Ron Procedure: Vibration Controlled Transien t Elastography (VCTE) or Fibroscan Marilla Protocol: Patient's identity, procedure and site were [...] Edwin Grubbs APRN PROCEDURE/MINOR SURGICAL ORD ERABLES documented in this encounter Visit Diagnoses Diagnosis Chronic cough Cough Heartburn RUQ pain Abdominal pain, right upper quadrant Fecal urgency Dysphagia, unspecified type History of hepatitis C Personal history of other infectious and parasitic disease documented in this encounter Care Teams Lasting Machine Operator Bed Relationship Specialty Start Date End Date Pricila Geller APRN PCP - General Family Medicine 11/24/18 [address] [place] [address] documented as of this encounter
--- OUTSIDE RECORDS SUMMARY | 2022-05-20 07:38 | XMS_ITS | Encounter Summary ---
:1955 Author Organization [facility] [place] [address] Care Team Providers Name Role Phone Pricila Geller JOELLE Primary Care Provider Encounter Details Date Type Department Care Team Description 10/24/2020 Laboratory Appointment Lab 3L [facility] [place] [id number] Social History Tobacco Use Types Packs/Day Years [...] Office Visit Cardiology Gianna Lorenzana PA [facility] Cardiology Dept [place], [place] [address] (Wo rk) Scheduled Procedures Name [...] A, Understanding Action Plan [facility] Note: Formatting of this note might be d ifferent from the original. Maintain 100% adherence to Entresto twic e daily regimen documented as of this encounter Procedures Procedure Name Priority Date/Time Associated Diagnosis Comme nts HC PROBNP Routine 10/24/2020 1:24 PM Chronic systolic Resul ts for this EST heart failure procedure are in the results section. HC VENIPUNCTURE Routine 10/24/2020 1:24 PM Chronic systolic Re sults for this EST heart failure procedure are in the results section. documented in this encounter Results (ABNORMAL) pro-Brain Natriuretic Peptide (10/24/2020 1:24 PM EST) athologist Signature ProBNP 1,369 (H) <=125 [facility] pg/mL [facility] Specimen Anatomical Collection Method Collection Time Receive d Time (Source) Location / / Volume Laterality Blood specimen 10/24/2020 1:24 PM 020 1:43 (specimen) EST PM EST Resulting Agency Comment Spec In Lab Lali Whelan MD CHEMISTRY ORDERABLES Performing Organization Address City/State/[place] [address] (ABNORMAL) Basic Metabolic Panel (non-fasting) (10/24/2020 1:24 PM EST) athologist Signature Glucose Lvl 110 65 - 199 [facility] mg/dL [facility] Comment: Diabetes: >=200 mg/dL plus symp toms BUN 22 (H) 10 - 20 mg/dL [facility] Creatinine 1.45 0.80 - 1.50 mg/dL [facility] Sodium 142 135 - 145 mmol/L [facility] Potassium 3.8 3.5 - 5.0 mmol/L [facility] Comment: Please note: ??Patients with WBC >100,00 0 may have falsely elevated Potassium levels. ??For accurate Potassium quantif ication in these patients send serum separator tube (gold top) for subsequent determinations. ??Contact the Clinical Chemistry Laboratory if there are any qu estions. Chloride 102 98 - 107 mmol/L [facility] CO2 34 (H) 22 - 31 mmol/L [facility] Anion Gap 6 5 - 15 mmol/L [facility] Calcium 9.1 8.5 - 10.5 mg/dL [facility] Estimated GFR 49 (L) >=60 mL/min/1.73 m?? [facility] Comment: This patient? s estimated glomerular filtration rate (eGFR) is between 49 mL/min/1.73 m2 (patients with less muscl e mass per kg body weight) and 57 mL/min/1.73 m2 (patients with more muscl e [...] Location / / Volume Laterality Blood specimen 10/24/2020 1:24 PM 020 1:43 (specimen) EST PM EST Resulting Agency Comment Spec In Lab Lali Whelan MD CHEMISTRY ORDERABLES Performing Organization Address City/State/[place] [address] documented in this encounter Visit Diagnoses Diagnosis Chronic systolic heart failure documented in this encounter Care Teams Sales Analytics Manager Relationship Specialty Start Date End Date Pricila Geller APRN PCP - General Family Medicine 11/24/18 [address] [facility] [place] [address] documented as of this encounter
--- OUTSIDE RECORDS SUMMARY | 2022-05-20 07:38 | XMS_ITS | Encounter Summary ---
:1955 Author Organization [facility] [place] [address] Care Team Providers Name Role Phone BenjamínPricila marcus JOELLE Primary Care Provider Encounter Details Date Type Department Care Team Description 12/10/2020 Telephone Gastroenterology at [facility] [place] [address] Social History Tobacco Use Types Packs/Day [...] this encounter Miscellaneous Notes Telephone Encounter - Mine Wright - 12/29/2020 4:06 PM EST US, Fibroscan and labs scheduled for 01/09/21 Telephone Encounter - Mine Wright - 12/10/2020 2:45 PM EST Contacted patient for scheduling but he was not able to schedule se he was not near his calendar. Josh would like the patient scheduled for a fibroscan, US, EGD/Ed[place], HREM and labs. documented in this encounter Plan of Treatment Upcoming Encounters Date Type Specialty Care Team Description 06/16/2022 Laboratory Appointment Lab 06/16/2022 Office Visit Cardiology Gianna Lorenzana PA [facility] er Cardiology Dept [place] [address] (Wo rk) Scheduled Procedures Name Priority Associated [...] Action Plan [facility] Note: Formatting of this note might be d ifferent from the original. Maintain 100% adherence to Entresto twic e daily regimen documented as of this encounter Visit Diagnoses Not on filedocumented in this encounter Care Teams Garment Looper Relationship Specialty Start Date End Date Pricila Geller APRN PCP - General Family Medicine 11/24/18 [place] [address] documented as of this encounter
--- OUTSIDE RECORDS SUMMARY | 2022-05-20 07:38 | XMS_ITS | Encounter Summary ---
:1955 [place] [address] Care Team Providers Name Role Phone Pricila Geller APRN Primary Care Provider Reason for Visit Reason Comments Medication Management Medication Refill Patient Education Encounter Details Date Type Department Care Team Description 02/11/2020 Specialty Pharmacy Cardiology at [facility] Jg Larios [facility] Jason Vazquez RPH Managem ent; [facility] Medication Refill; [place], [place] [phone] Social History Tobacco Use Types Packs/Day Years [...] encounter Progress Notes Jason Larios RPH - 02/11/2020 11:54 AM EDT Specialty Pharmacy Consultation; Jason Larios RPH Comprehensive Medication Management (CMM) Cong Khan Diagnosis: Heart Failure Therapy Start Date: At least since 05/2019 Contact in person or via telephone:phone Mr. Cong Khan is a 65 y.o. (1955) male who was contacted in regard to specialty medication. Spoke with patient regarding ENTRESTO. A review of the medication therapy was performed. The medication was Refilled as scheduled, and all medication related questions and concerns were addressed. The specialty pharmacy staff will follow up with the patient 10 days prior to next refill. Is the patient willing to proceed with the Clinical Assessment? Yes Summary and Recommendations: I just completed a 6 month clinical f/up with Mr. Khan. I reviewed his use of Entresto. He is taking ithis med correctly and consistently w/o missed doses. He is experiencing no ADRs that he can relate to this med. He states that his clinical status is stable. He is waiting on a call from Cardiologys/p new labs, to learn if he is to restart spironolactone (held in Nov sec/to a bump in Sr Cr). Clinic follow-up needed: no Allergies and Drug intolerance: No Known Allergies Special Dietary or Hydration Requirements: yes - low Na, heart healthy diet There is no height or weight on file to calculate BMI. Medication Reconciliation Discrepancies (compared to [facility] med list) -I find his dose of metoprolol XL 50 mg confusing as it appears on his med list. The pt is clear that he takes 150 mg in the A.M., and 100 mg at HS (he has both the 100 & the 50 mg tabs). The dosing on the 50 mg tabs does not reflect this, and appears excessive. I marked the entry as pt taking differently). Medication Adherence Patient reported X missed doses [...] Outpatient Medications Medication Sig Dispense Refill ??? metoprolol succinate XL (Toprol-XL) 100 mg Tablet Sustained Release 24 hr Take 100 mg by mouth daily. In am with 50 mg tab total 150 mg in am. ??? metoprolol succinate XL (Toprol-XL) 50 mg Tablet Sustained Release 24 hr Take 50 mg by mouth. Take 5 tab in PM with 100 mg tab and 2 tabs in PM ??? sacubitril-valsartan (ENTRESTO) 24-26 mg Tablet tablet Take 1 tablet by mouth 2 times daily. 60 tablet 3 ??? apixaban (ELIQUIS) 2.5 mg [...] mg by mouth daily.) 30 tablet 3 No current facility-administered medications [...] (Oral) BP Readings from Last 3 Encounters: 12/07/19 (!) 83/58 08/24/19 114/83 06/15/19 125/81 Pulse Readings from Last 3 Encounters: 12/07/19 79 08/24/19 77 06/15/19 76 Pertinent Lab values: Lab Results Component Value Date NA 139 02/02/2020 K 3.9 02/02/2020 CL 100 02/02/2020 CO2 30 02/02/2020 BUN 42 02/02/2020 CREATININE 2.17 02/02/2020 GLUCOSE 118 02/02/2020 CALCIUM 8.5 02/02/2020 Lab Results Component Value [...] and Recommendations: Title Type of Medication Management: comprehensive medication review Referred By: provider Recipient: beneficiary Provider: plan sponsor pharmacist Visit Type: [facility] Follow-up Method of Contact: by telephone Cognitive Ability: good Cognitive Impairment Status Verified this Year: no Patient Counseling Counseled the patient on the following: doses and administration discussed, possible adverse effects and management discussed, therapeutic rationale discussed, cost of medications and cost implications discussed, adherence and missed doses discussed, reminder to refill or moss picker medication discussed Drug Medication Management Summary Topics discussed: doses and administration discussed, possible adverse effects and management discussed, therapeutic rationale discussed, cost of medications and cost implications discussed, adherence and missed doses discussed, reminder to refill or moss picker medication discussed Time spent: 16-30 min Treatment Outcomes 02/11/2020 1157 Disease progression: Stable Reviewed in detail with patient: Dose [...] Assessment: Does the patient have a primary daycare director? no Does the patient have an emergency contact on file: Yes Does patient need referral to professor of social work: No Does patient need referral to advocacy group: No Home Health Assessment: Is the patient in a safe home environment? Yes Is the patient able to store their medication as directed? Yes Does the patient have a support network at home? Yes Reviewed potential home safety hazards with patient: Yes Economic Assessment: Patient is agreeable to medication copay: yes Copay Amount: 0 Day Supply: 30 Date Needed: 02/20/2020 Copay assistance required: yes - Already provided with a [employer] Therapy Assessment: Current Medication Dosing/Route/Frequency: Entresto 24-26 mg one tablet po BID. Appropriate Therapy: Yes Effective: Yes Patient-Reported Side Effects: no Patient Goals: Patient's specific desired goal: Taking one day at a time/doing the best w/each day Measured by: Heart failure symptoms/control Time-frame to meet goal: immediate, and is currently at goal Is the patient on track to achieve [...] Recent Swelling in Extremities: no Weight Changes: yes - But gradual. I discussed the wisdom of daily wts with Mr. Khan. He understands the rationale, and said he would begin doing so. Actively Monitoring Blood Pressure at Home: No Recent BP/HR Measurements: 83/58 in Cardio dept on 12/07/19. Spironolactone was d/c'd during this visit. Recent Symptoms of Hypotension: no Recent Respiratory Symptoms (SOB, Wheezing, Cough): no Pharmacist follow-up needed: No Patient Satisfaction with Care/Services Provided: Yes Informed patient of specialty pharmacy services: Yes -Patient received welcome packet: Yes Date Received: 08/15/19 Delivery Method: mail -Patient returned signed Rights & Responsibilities: Yes Date Received: 08/15/19 Delivery Method: mail -Patient is aware a licensed pharmacist is available 24 hours a day, 7 days a week to discuss medication-related questions or concerns: Yes -Patient verbalizes understanding of education on the common side effect profile of the medication: Yes -The patient is able to call 911 or seek urgent care if signs/symptoms of allergy or harmful adversereactions occur: Yes Patient Satisfaction with Therapy: Yes Patient understands no changes to current drug regimen were made at the appointment and that [facility] is providing recommendations (summary located at top of note) for provider review and follow up. Jason Larios [facility] 02/11/20 11:57 AM documented in this encounter Plan of Treatment Upcoming Encounters Date Type Specialty Care Team Description 06/16/2022 Laboratory Appointment Lab 06/16/2022 Office Visit Cardiology Gianna [facility] Card[facility] Dept [place], [place] [address] (Wo rk) Scheduled Procedures Name [...] and Facing Tad A, Understanding Action Plan [facility] Note: Formatting of this note might be d ifferent from the original. Maintain 100% adherence to Entresto twic e daily regimen documented as of this encounter Visit Diagnoses Not on filedocumented in this encounter Care Teams Business Services Intern Relationship Specialty Start Date End Date Pricila Geller APRN PCP - General Family Medicine 11/24/18 [place] [address] documented as of this encounter
--- OUTSIDE RECORDS SUMMARY | 2022-05-20 07:38 | XMS_ITS | Encounter Summary ---
:1955 Author Organization [facility] [place] [address] Care Team Providers Name Role Phone Pricila Geller APRN Primary Care Provider Encounter Details Date Type Department Care Team Description 12/01/2020 Notes Only Care [place] [address] Social History Tobacco Use Types Packs/Day Years [...] documented as of this encounter Progress Notes Paulina Carlson - 12/01/2020 9:29 AM EST I sent the application for assistance with Entresto to the patient for them to complete, sign and return to the Medication Assistance Program, along with proof of income. I will follow through with theremainder of the application once everything is returned to me. documented in this encounter Plan of Treatment Upcoming Encounters Date Type Specialty Care Team Description 06/16/2022 Laboratory Appointment Lab 06/16/2022 Office Visit Cardiology Gianna Lorenzana PA [facility] er Cardiology Dept [place], [place] [address] (Wo rk) Scheduled Procedures Name [...] Facing Tad A, Understanding Action Plan [facility] Note: Formatting of this note might be d ifferent from the original. Maintain 100% adherence to Entresto twic e daily regimen documented as of this encounter Visit Diagnoses Not on filedocumented in this encounter Care Teams Magazine Worker Relationship Specialty Start Date End Date Pricila Geller APRN PCP - General Family Medicine 11/24/18 [place] [address] documented as of this encounter
--- OUTSIDE RECORDS SUMMARY | 2022-05-20 07:38 | XMS_ITS | Encounter Summary ---
:1955 Author Organization [facility] [place] [address] Care Team Providers Name Role Phone Pricila Geller APRN Primary Care Provider Encounter Details Date Type Department Care Team Description 08/27/2020 Refill Cardiology at [facility] Lali Vu, [facility] [place] [address] [address] [facility] [phone] [place], [place] [address] (Wo rk) Social History Tobacco [...] 06/16/2022 Office Visit Cardiology Gianna Lorenzana PA [facility] er Cardiology Dept [place], [place] [address] (Wo rk) Scheduled Procedures [...] on filedocumented in this encounter Care Teams Tosser Relationship Specialty Start Date End Date Pricila Geller APRN PCP - General Family Medicine 11/24/18 [address] [place] [address] documented as of this encounter
--- OUTSIDE RECORDS SUMMARY | 2022-05-20 07:38 | XMS_ITS | Encounter Summary ---
:1955 Author Organization [facility] [place] [address] Care Team Providers Name Role Phone Pricila Geller APRN Primary Care Provider Reason for Visit Reason Comments Cough Encounter Details Date Type Department Care Team Description 01/07/2021 TH Visit Allergy at [facility] Aletha Davenport MD Chronic cough (TeleHealth) [facility] [place] [place] [address] ALLERGY DEPT [phone] [place] [id number] (Wo rk) Social History Tobacco Use Types [...] documented as of this encounter Progress Notes Aletha Davenport MD - 01/07/2021 9:00 AM EST CC: chronic cough HPI: Cong Khan is a 66 y.o. male with a PMH of CHF, afib, HTN, stroke, aortic and mitral valvereplacements, h/o HCV, EtOH use disorder presenting for evaluation of chronic cough at the request of Pricila Geller. Chronic cough has been happening for a while. Looking for potential causes. Has had the cough for 10 years off and on. When it comes on it will last a month or so, then go awayon its own. Never noticed any seasonal pattern. Sometimes cant talk due to cough. When lays down will also cough can start up. Can go up to a couple months without the cough. If any pattern at all seems like mid- winter and mid-to late summer are worse. Not really getting stuffy nose, watery eyes with cough. Only occ has a need to blow nose. Has a deviated septum. Does get phlegm regularly with the cough. Usually clear. Can hear it in his throat then cough it up. Not getting runny nose or PND that heis aware. Denies wheezing. Admits to SOB at baseline with history of valvular heart disease. MEDS TRIED: On nexium for 2 weeks, only mild improvement perhaps. Still has cough though. Not taking allergy meds No known allergies. Back in (~1968) aftershave lotion caused a rash. That is only known allergic problem. Jokes that he is allergic to alcohol (history of alcoholism). No known medication allergies. No clear pattern with meds and cough Seasonal allergy sx: unreliable pattern but at times in spring and fall he has gotten stuffy nose, watery eyes. Normally doesn't get this though. CHARLENE In past has had pets but not for past few years now Current home - lived in for about 2 years. 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 ROS is per HPI otherwise negative. Patient Active Problem List Diagnosis Code ??? [...] R13.10 ??? History of hepatitis C Z86.19 Past Medical History: Diagnosis Date ??? Alcohol [...] Joint Aspiration Large Right 06/19/2019 Latonia Caraballo, [facility] RAD XRAY ??? esomeprazole (NexIUM) 20 mg Capsule, Delayed Release(E.C.) ??? tamsulosin (FLOMAX) 0.4 mg Capsule ??? cholecalciferol, Vitamin D3, (D3-2000) 50 mcg (2,000 unit) Capsule ??? fish oil-omega-3 fatty acids 1,000 mg Capsule ??? b complex vitamins Capsule ??? NETTLE LEAF ORAL ??? folic acid (Folvite) 1 mg Tablet ??? sacubitriL-valsartan (Entresto) 49-51 mg Tablet tablet ??? metoprolol succinate XL (Toprol-XL) 100 mg Tablet Sustained Release 24 hr ??? metoprolol succinate XL (Toprol-XL) 50 mg Tablet Sustained Release 24 hr ??? apixaban (Eliquis) 2.5 mg Tablet ??? torsemide (Demadex) 20 mg Tablet ??? finasteride (PROSCAR) 5 mg Tablet ??? aspirin 81 mg Tablet, Chewable No Known Allergies Family History Problem Relation Age of Onset ??? Emphysema Mother ??? Hypertension Mother ??? Alcohol Use Disorder Father ??? Aneurysm Father ??? Hypertension Father ??? Substance Use Disorder Brother ??? Colorectal Cancer Neg Hx ??? Inflammatory Bowel Disease Neg Hx ??? Celiac Disease Neg Hx ??? Esophageal Cancer Neg Hx Social History Socioeconomic History ??? Marital status: [...] Strain: ??? Difficulty of Paying Living Expenses: Not on file Food Insecurity: ??? Worried About Running Out of Food in the Last Year: Not on file ??? Ran Out of Food in the Last Year: Not on file Transportation Needs: ??? Lack of Transportation (Medical): Not on file ??? Lack of Transportation (Non-Medical): Not on file Physical Activity: ??? Days of Exercise per Week: Not on file ??? Minutes of Exercise per Session: Not on file PHYSICAL EXAM: There were no vitals taken for this visit. Constitutional: awake, alert, no acute distress Head: normocephalic, atraumatic Eyes: conjunctiva without injection or icterus, no discharge appreciated, no edema of eyelids ENT: no angioedema of tongue or lips, normal pinnae, no anterior nasal drainage observed, no stridor Neck: no visible goiter or enlargement of neck Resp: no increased work of breathing observed, no coughing observed, speaking in full sentences, normal rate of breathing, no accessory muscle use CVS: normal color and perfusion, no apparent cyanosis Extremities: no apparent joint deformity observed, normal appearing muscle bulk, normal and symmetric ROM of visible extremities Skin: no visible rash or lesions, normal color, no mottling Neuro: EOMI, no dysarthria Psych: normal grooming, appropriate mood and affect, normal volume/quantity/tone of speech, normal thought process and content ASSESSMENT AND PLAN: 66 y.o. male with chronic cough, with no clear allergic triggers. Suspicion for allergy is low but Huey believe worth screening because there are a variety of therapeutic options we could try if he hasallergies. Patient would benefit from skin testing to determine if allergic triggers are present. Identification of allergic triggers can guide allergen avoidance therapy and determine if patient qualifies for allergen-specific therapies such as immunotherapy. Patient will return for allergy testing off antihistamines for 7 days. Aletha Davenport MD Orders Placed This Encounter Procedures ??? Allergy Skin Test documented in this encounter Plan of Treatment Upcoming Encounters Date Type Specialty Care Team Description 06/16/2022 Laboratory Appointment Lab 06/16/2022 Office Visit Cardiology Gianna Lorenzana PA [facility] Cardiology Dept [place], [place] [address] (Wo rk) Scheduled Procedures Name [...] Cough documented in this encounter Care Teams Technical Implementation Lead Relationship Specialty Start Date End Date Pricila Geller APRN PCP - General Family Medicine 11/24/18 [facility] [place] [address] documented as of this encounter
--- OUTSIDE RECORDS SUMMARY | 2022-05-20 07:38 | XMS_ITS | Encounter Summary ---
:1955 Author Organization [place] [address] Care Team Providers Name Role Phone Pricila Geller JOELLE Primary Care Provider Encounter Details Date Type Department Care Team Description 01/09/2021 Hospital Encounter Pulmonology at [facility] Chronic cough [facility] [place] [address] Social History Tobacco Use Types Packs/Day [...] Visit Cardiology Gianna Lorenzana PA [facility] er Cardiology Dept [place], [place] [address] (Wo rk) Scheduled Procedures Name [...] Name Priority Date/Time Associated Diagnosis Comme nts PULMONARY FUNCTION Routine 01/09/2021 3:18 PM Chronic cough Re sults for this TEST EST procedure are i n the results section. documented in this encounter Results Pulmonary Function Testing (01/09/2021 [...] / FVC LLN 64 % COMPAS PFT [id number] Actual 1.44 L/s COMPAS PFT Pre-BD [id number] Pre-BD 60 % COMPAS PFT % of Predicted HPF80-45 2.40 L/s COMPAS PFT Predicted [id number] Pre-BD -1.12 COMPAS PFT Z-Score Specimen (Source) [...] City/State/ZIP Code Phon e Number COMPAS PFT documented in this encounter Visit Diagnoses Diagnosis Chronic cough Cough documented in this encounter Care Teams Telegraph Office Manager Relationship Specialty Start Date End Date Pricila Geller APRN PCP - General Family Medicine 11/24/18 [address] [place] [address] documented as of this encounter
--- OUTSIDE RECORDS SUMMARY | 2022-05-20 07:38 | XMS_ITS | Encounter Summary ---
:1955 Author Organization [facility] [place] [address] Care Team Providers Name Role Phone BenjamínPricila marcus APRN Primary Care Provider Encounter Details Date Type Department Care Team Description 02/13/2020 Orders Only Cardiology at [facility] Prudence Lowry Chronic systolic heart [facility] RN failure ( Primary Dx) [place] [address] Social History Tobacco Use Types Packs/Day [...] PA [facility] Cardiology Dept [place], [place] [address] (Wo rk) Scheduled Procedures Name [...] documented as of this encounter Results (ABNORMAL) pro-Brain Natriuretic Peptide (10/24/2020 1:24 PM EST) athologist Signature ProBNP 1,369 (H) <=125 [facility] pg/mL [facility] Specimen Anatomical Collection Method Collection Time Receive d Time (Source) Location / / Volume Laterality Blood specimen 10/24/2020 1:24 PM 020 1:43 (specimen) EST PM EST Resulting Agency Comment Spec In Lab Lali Whelan MD CHEMISTRY ORDERABLES Performing Organization Address City/State/[place] [address] (ABNORMAL) Basic Metabolic Panel (non-fasting) (10/24/2020 1:24 PM EST) athologist Signature Glucose Lvl 110 65 - [address] [facility] mg/dL [facility] Comment: Diabetes: >=200 mg/dL plus symp toms BUN 22 (H) 10 - 20 mg/dL [facility] Creatinine 1.45 0.80 - 1.50 mg/dL [facility] Sodium 142 135 - 145 mmol/L [facility] Potassium 3.8 3.5 - 5.0 mmol/L [facility] Comment: Please note: ??Patients with WBC >100,00 0 may have falsely elevated Potassium levels. ??For accurate Potassium quantif ication in these patients send serum separator tube (gold top) for subsequent determinations. ??Contact the Clinical Chemistry Laboratory if there are any qu estions. Chloride 102 98 - 107 mmol/L [facility] CO2 34 (H) 22 - 31 mmol/L [facility] Anion Gap 6 5 - 15 mmol/L [facility] Calcium 9.1 8.5 - 10.5 mg/dL [facility] Estimated GFR 49 (L) >=60 mL/min/1.73 m?? [facility] [...] Organization Address City/State/ZIP Code Phon e Number [place] [phone] documented in this encounter Visit Diagnoses Diagnosis Chronic systolic heart failure - Primary documented in this encounter Care Teams Glory Hole Tender Relationship Specialty Start Date End Date Pricila Geller APRN PCP - General Family Medicine 11/24/18 [facility] [place] [address] documented as of this encounter
[2022-05-20 07:39] LABS: HCT 24.8 % (40.0-50.0); HGB 8.3 g/dL (13.5-17.5)
--- OUTSIDE RECORDS SUMMARY | 2022-05-20 07:39 | XMS_ITS | Encounter Summary ---
:1955 Author Organization [place] [address] Care Team Providers Name Role Phone Pricila Geller JOELLE Primary Care Provider Reason for Visit Reason Onset Date Comments Follow-up 02/01/2020 [place] restart? Encounter Details Date Type Department Care Team Description 02/01/2020 Telephone Cardiology at [facility] Prisca Russ, Follow-up ([facility] RN restart?) [place] [address] Social History Tobacco Use Types Packs/Day [...] Telephone Encounter - Prisca Russ, RN - 02/01/2020 2:55 PM EDT No BMP results found in eD-H from 01/18 visit. Pt contacted and reports remembering getting the test done. He will go to get the BMP at [facility] Sat or Mon. Order faxed to: [facility] lab P [phone] F [phone] Awaiting results to determine restart of Spironolactone. Telephone Encounter - Prisca Russ, RN - 02/01/2020 2:54 PM EDT ----- Message from Lali Whelan MD sent at 12/07/2019 11:08 AM EST ----- Stopping up sprionolactone, follow up blood work when he comes back for stress test/TTE, pending results, consider if we need to restart documented in this encounter Plan of Treatment Upcoming Encounters Date Type Specialty Care Team Description 06/16/2022 Laboratory Appointment Lab 06/16/2022 Office Visit Cardiology Gianna Lorenzana PA [facility] er Cardiology Dept [place], [place] [address] (Wo rk) Scheduled Procedures Name [...] Tad A, Understanding Action Plan [facility] Note: Formatting of this note might be d ifferent from the original. Maintain 100% adherence to Entresto twic e daily regimen documented as of this encounter Visit Diagnoses Not on filedocumented in this encounter Care Teams Ditch Cleaner Relationship Specialty Start Date End Date Pricila Geller APRN PCP - General Family Medicine 11/24/18 [place] [address] documented as of this encounter
--- OUTSIDE RECORDS SUMMARY | 2022-05-20 07:39 | XMS_ITS | Encounter Summary ---
:1955 Author Organization [facility] [place] [address] Care Team Providers Name Role Phone Pricila Geller JOELLE Primary Care Provider Encounter Details Date Type Department Care Team Description 05/04/2019 Laboratory Lab 3L [place] Atrial fibrilla tion, unspecified type; Appointment [facility] Cerebrova scular accident (CVA) due to embolism [place] [address] Social History Tobacco Use Types Packs/Day Years [...] 06/16/2022 Office Visit Cardiology Gianna Lorenzana PA [facility] Cardiology Dept [place], [place] [address] (Wo rk) Scheduled Procedures Name Priority Associated Diagnoses Date/Time EGD, UPPER GI ENDOSCOPY Chronic cough Heartburn RUQ pain Fecal urgency Dysphagia, unspecifi ed type History of hepatitis C COLONOSCOPY, DIAGNOSTIC Chronic cough Heartburn RUQ pain Fecal urgency Dysphagia, unspecifi ed type History of hepatitis C documented as of this encounter Procedures Procedure Name Priority Date/Time Associated Diagnosis Comme nts APIXABAN LEVEL Routine 05/04/2019 12:43 PM Atrial fibrillation , Results for this EDT unspecified type procedure are in Cerebrovascular the results 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 therapeutic range? for Apixaban has been defined. ? On therapy? ranges for various indications are derived from the medical literature and pharmacokinetic modeling and listed below (James albert Hematology Am Soc Hematol Educ Program 2015 and the product monograph ( see full references below)): Indication ? Dose ??Peak ??Trough VTE prevention, major ? 2.5 mg bid ??41 ? 146 ? 23 ? 109 ?? orthopedic surgery VTE treatment ? 10 mg bid ?? 111 ? 572 ?41 ? 335 ? 5 mg bid ?59 ? 302 ? 22 ? 177 ? 2.5 mg bid ??30 ? 153 ? 11 ? 90 Stroke prevention in atrial ? 5 m g bid ?91 ? 321 ? 41 ? 162 ?? fibrillation ? 2.5 mg bid ??6 9 ? 221 ? 34 ? 136 Peak and trough values are estimates for steady state Peak is determined 3 ? 4 hours after a dose Trough is determined 20 ? 28 hours after a dose Methodology: Chromogenic This test was developed and its performa nce characteristics determined by [facility]. It h as not been cleared or approved by the FDA. The laboratory is regulated under [place] as qualified to perform high complexity testing. This test is used fo r clinical purposes. It should not be regarded as investigational or for resea [facility]. 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
--- OUTSIDE RECORDS SUMMARY | 2022-05-20 07:39 | XMS_ITS | Encounter Summary ---
:1955 Author Organization [facility] [place] [address] Care Team Providers Name Role Phone BenjamínPricila marcus JOELLE Primary Care Provider Reason for Visit Reason Onset Date Comments Prior Authorization 06/15/2019 Entresto Encounter Details Date Type Department Care Team Description 06/15/2019 Telephone Pharmacy at [facility] Margi Lr Prior Authorization [facility] jorge (Entresto) [place] [address] Social History Tobacco Use Types Packs/Day [...] this encounter Miscellaneous Notes Telephone Encounter - Margi Lr - 06/15/2019 2:31 PM EDT [facility], Medication Prior Authorization Request Patient: Cong Khan Patient : 1955 Patient Address: [address] [facility] [address] (home) Medication: Entresto Medication Strength Frequency Requested: Entresto 24-26 mg Qty/Day Supply: New Start: Yes Diagnosis & ICD-10 Code: Heart Failure Subscriber Insurance: [email or web address] part D Fax: Physician: Lali Whelan PA Status: NO PA REQUIRED FILLABLE AT [facility]? yes INSURANCE REQUIREMENTS: none COPAY: $25.67 COPAY ASSISTANCE NEEDED?: no NOTES: documented in this encounter Plan of Treatment Upcoming Encounters Date Type Specialty Care Team Description 06/16/2022 Laboratory Appointment Lab 06/16/2022 Office Visit Cardiology Gianna Lorenzana PA [facility] Cardiology Dept [place], [place] [address] (Wo rk) Scheduled Procedures Name [...] on filedocumented in this encounter Care Teams Agronomy Professor Relationship Specialty Start Date End Date Pricila Geller APRN PCP - General Family Medicine 11/24/18 [place] [address] documented as of this encounter
--- OUTSIDE RECORDS SUMMARY | 2022-05-20 07:39 | XMS_ITS | Encounter Summary ---
:1955 Author Organization [facility] [place] [address] Care Team Providers Name Role Phone Pricila Geller JOELLE Primary Care Provider Reason for Visit Reason Comments Patient Education Encounter Details Date Type Department Care Team Description 06/15/2019 Specialty Pharmacy Pharmacy at [facility] [place] [id number] Social History Tobacco Use Types Packs/Day Years [...] documented as of this encounter Progress Notes Tad Canada RPH - 06/15/2019 3:47 PM EDT Specialty Pharmacy Consultation; Tad Canada RPH Comprehensive Medication Management (CMM) Cong Khan Diagnosis: Heart failure Therapy Start Date: TBD - new to therapy Contact in person or via telephone: Phone Mr. Cong Khan is a 64 y.o. (1955) male who was contacted in regard to specialty medication. Spoke with patient regarding Entresto . A review of the medication therapy was performed. The medication was Refilled as scheduled, and all medication related questions and concerns were addressed. The specialty pharmacy staff will follow up with the patient 5-7 days prior to next refill. Is the patient willing to proceed with the Clinical Assessment? Yes Summary and Recommendations: Patient was contacted for an initial consult regarding specialty medication, Entresto. A medication reconciliation was performed in addition to a confirmation of allergies with no changes noted. A comprehensive medication review performed with and emphasis on administration, adherence, lab monitoring, and potential side effects of Entresto therapy according to package labelling. Patient was informed of required losartan washout period 36-48 hours prior to initiation of Entresto. Patient understands that at-home blood pressure monitoring is highly encouraged, especially during the first few weeks oftherapy while the body adapts to the new medication. Patient confirms ownership of BP monitoring system and states he already monitors this at home with average blood pressures < 120/80 mmHg. Typical upward titration of medication dosage as tolerated was discussed as well. The medication will likely be shipped on 06/19 to arrive one t two days later. He had no questions or concerns at the end of our encounter Clinic follow-up needed: yes - next cardiology OV on 08/24/19 Allergies and Drug intolerance: No Known Allergies Special Dietary or Hydration Requirements: no There is no height or weight on file to calculate BMI. Medication Reconciliation Discrepancies (compared to [facility] med list) - none Medication List: Current Outpatient Medications Medication Sig Dispense Refill ??? losartan (COZAAR) 50 mg Tablet Take 50 mg by mouth daily. ??? metoprolol (LOPRESSOR) 100 mg Tablet Take 175 mg by mouth every morning. ??? metoprolol succinate (TOPROL-XL) 50 mg Tablet Sustained Release 24 hr Take 75 mg by mouth nightly. ??? sacubitril-valsartan (ENTRESTO) 24-26 mg Tablet tablet Take 1 tablet by mouth 2 times daily. 60 tablet 3 ??? spironolactone (ALDACTONE) 25 mg Tablet Take 25 mg by mouth daily. ??? apixaban (ELIQUIS) 2.5 mg Tablet Take 1 tablet by mouth 2 times daily. ??? aspirin 81 mg Tablet, Chewable Take 81 mg by mouth daily. 30 tablet 3 ??? torsemide (DEMADEX) 20 mg Tablet Take 2 tablets by mouth daily. (Patient taking differently: Take 20 mg by mouth daily.) 30 tablet 3 No current facility-administered medications for this visit. Most Recent Vitals: Ht Readings from Last 1 Encounters: 06/15/19 175.3 cm (5' 9) Wt Readings from Last 3 Encounters: 06/15/19 75.3 kg (166 lb) 06/05/19 75.7 kg (166 lb 14.4 oz) 04/25/19 73.8 kg (162 lb 11.2 oz) Temp Readings from Last 3 Encounters: 09/08/17 36.4 ??C (97.5 ??F) (Oral) BP Readings from Last 3 Encounters: 06/15/19 125/81 06/05/19 100/71 04/25/19 103/70 Pulse Readings from Last 3 Encounters: 06/15/19 76 06/05/19 87 04/25/19 76 Pertinent Lab values: Lab Results Component Value Date NA 132 (L) 06/15/2019 K 4.8 06/15/2019 CL 97 (L) 06/15/2019 CO2 25 06/15/2019 BUN 26 (H) 06/15/2019 CREATININE 1.73 (H) 06/15/2019 GLUCOSE 97 06/15/2019 CALCIUM 9.6 06/15/2019 Lab Results Component Value Date ALT 13 [...] PF, Quadrivalent 09/07/2017 Assessment and Recommendations: Title Patient Counseling Counseled the patient on the following: doses and administration discussed, safe handling, storage, and disposal discussed, possible adverse effects and management discussed, possible drug and prescription drug interactions discussed, possible drug and OTC drug and food interactions discussed, lab monitoring and follow-up discussed, therapeutic rationale discussed, cost of medications and cost implications discussed, adherence and missed doses discussed, pharmacy contact information discussed Drug Medication Management Summary Topics discussed: doses and administration discussed, safe handling, storage, and disposal discussed, possible adverse effects and management discussed, possible drug and prescription drug interactions discussed, possible drug and OTC drug and food interactions discussed, lab monitoring and follow-up discussed, therapeutic rationale discussed, cost of medications and cost implications discussed, adherence and missed doses discussed, pharmacy contact information discussed Treatment Outcomes No data found. Reviewed in detail with patient: Dose appropriateness [...] frequency and method Handling, storage, and disposal of the medication Relevant lab data Patient verbalizes understanding and is able to read-back instructions on self-administration/injection, proper storage, drug stability, importance of adherence and management strategies, side effect avoidance and mitigation strategies, and interruptions in therapy: Yes Physical Assessment: Functional limitations identified: no Cognitive limitations identified: no Concern regarding orientation/memory: no Concern with reasoning/judgement: no Is patient a fall risk: no Other needed information: no Social Assessment: Does the patient have a primary out of school hours care worker? No Patient has emergency contact on file: Yes Does patient need referral to social security assessor: No Does patient need referral to advocacy group: No Physical and Home Health Assessment: Is the patient able to store their medication as directed? Yes Is the patient in a safe home environment? Yes Do you have a support network? Yes Reviewed potential home safety hazards: none noted Economic Assessment: Patient is agreeable to medication copay: Yes Copay Amount: $25.67 Day Supply: 30 Date Needed: new to therapy Copay assistance required: no Therapy Assessment: Current Medication Dosing/Route/Frequency: Entresto 24-26 mg PO BID Appropriate Therapy: Yes Expected Outcome: Slowed progression of cardiac disease Patient's goals: Goals ??? Home Medication Compliance and Understanding Maintain 100% adherence to Entresto twice daily regimen Care Plan Reviewed and Approved by both Pharmacist and Patient: Yes Patient's Problems/Needs: Chronic systolic heart failure Monitoring requirements for prescribed medication: As determined by provider Interventions (if applicable): N/A Educational information or adherence tools provided: Yes Additional equipment/supplies required: no Pharmacist follow-up needed: Yes Informed patient of specialty pharmacy services: Yes -Patient will be provided with welcome packet: Yes Date to be provided: With initial shipment Delivery Method: Mail -Patient will be provided with Rights & Responsibilities: Yes Date to be provided: With initial shipment Delivery Method: Mail -Patient is aware a [...] made at the appointment and that [facility] is providing recommendations (summary located at top of note) for provider review and follow up. Tad Canada RPH 06/15/19 3:51 PM documented in this encounter Plan of Treatment Upcoming Encounters Date Type Specialty Care Team Description 06/16/2022 Laboratory Appointment Lab 06/16/2022 Office Visit Cardiology Gianna Lorenzana PA [facility] Cardiology Dept [place], [place] [address] (Wo rk) Scheduled Procedures Name [...] Patient No Daniela ward, Compliance and Facing Gilbert Mitchell Action Plan [facility] Note: Formatting of this note might be d ifferent from the original. 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
--- OUTSIDE RECORDS SUMMARY | 2022-05-20 07:39 | XMS_ITS | Encounter Summary ---
:1955 Author Organization [facility] Address [facility] [place] [address] Care Team Providers Name Role Phone Pricila Geller APRN Primary Care Provider Encounter Details Date Type Department Care Team Description 06/13/2019 Orders Only Gastroenterology at [facility] Jose Robledo Chronic hepatitis C [facility] LUIS ALFREDO [place] [address] [place] [address] [place] [address] Social History Tobacco Use Types Packs/Day Years [...] 06/16/2022 Office Visit Cardiology Gianna Lorenzana PA [facility] Cardiology Dept [place], [place] [address] (Wo rk) Scheduled Procedures Name Priority Associated Diagnoses Date/Time EGD, UPPER GI ENDOSCOPY Chronic cough Heartburn RUQ pain Fecal urgency Dysphagia, unspecifi ed type History of hepatitis C COLONOSCOPY, DIAGNOSTIC Chronic cough Heartburn RUQ pain Fecal urgency Dysphagia, unspecifi ed type History of hepatitis C documented as of this encounter Visit Diagnoses Diagnosis Chronic hepatitis C without hepatic coma documented in this encounter Care Teams Glued Wood Tester Relationship Specialty Start Date End Date Pricila Geller APRN PCP - General Family Medicine 11/24/18 [address] [facility] [place] [address] documented as of this encounter
--- OUTSIDE RECORDS SUMMARY | 2022-05-20 07:39 | XMS_ITS | Encounter Summary ---
:1955 Author Organization [facility] [place] [address] Care Team Providers Name Role Phone BenjamínPricila marcus JOELLE Primary Care Provider Reason for Visit Diagnostic Test (Routine) - Closed Specialty Diagnoses / Procedures Referred By Contact Refer red To Contact Radiology Diagnoses Chronic systolic heart failure Lali Vu [facility] Rad Nuclear Med Procedures NM Pharmacologic Stress and Rest Myocardial Perfusion NM Exercise Stress and Rest [place] [address] [place] [address] Fax: Referral ID Status Reason Start Date Expiration Date Visits V isits Requested Authorized [id number] Closed Specialty 12/07/2019 06/06/2021 1 1 Service Requested Encounter Details Date Type Department Care Team Description 01/18/2020 Hospital Encounter Nuclear Medicine at [facility] Crowleyyaron Garland [place] [facility] [place] [address] [place] [address] [phone] (Wo rk) Social History Tobacco Use Types [...] 5 mg 5 mg daily. 11 08/06/20 Tablet aspirin 81 mg Tablet, Take 81 mg by 30 tablet 3 09/08/2017 Chewable mouth daily. sacubitril-valsartan Take 1 tablet by 60 tablet 3 9 02/11/2020 (ENTRESTO) 24-26 mg Tablet mouth 2 times tablet daily. apixaban (ELIQUIS) 2.5 mg Take 1 tablet by 180 tablet 3 06/201910/06/2020 TabletIndications: Atrial mouth 2 times fibrillation, unspecified daily. type, Cerebrovascular accident (CVA) due to embolism of right middle cerebral artery metoprolol (LOPRESSOR) 100 Take 175 mg by 0 02/08/2020 mg Tablet mouth every morning. metoprolol succinate Take 75 mg by 0 0 02/08/2020 (TOPROL-XL) 50 mg Tablet mouth nightly. Sustained Release 24 hr spironolactone (ALDACTONE) Take 25 mg by 0 201802/08/2020 25 mg Tablet mouth daily. torsemide (DEMADEX) 20 mg Take 2 tablets by 30 tablet 3 02/15/2020 Tablet mouth daily. documented as of this encounter Plan of Treatment Upcoming Encounters Date Type Specialty Care Team Description 06/16/2022 Laboratory Appointment Lab 06/16/2022 Office Visit Cardiology Gianna Lorenzana PA [facility] er Cardiology Dept [place], [place] [address] (Wo rk) Scheduled Procedures Name [...] Facing Tad A, Understanding Action Plan [facility] Note: Formatting of this note might be d ifferent from the original. Maintain 100% adherence to Entresto twic e daily regimen documented as of this encounter Procedures Procedure Name Priority Date/Time Associated Comments Diagnosis NM PHARMACOLOGIC Routine 01/18/2020 12:15 Chronic systolic Res ults for this STRESS AND REST PM EST heart failure procedure a re in MYOCARDIAL PERFUSION the res ults section. documented in this encounter Results NM Pharmacologic Stress and Rest Myocardial Perfusion (01/18/2020 12:15 PM EST) Anatomical Region Laterality Modality Nuclear Medicine Specimen (Source) Anatomical Location Collection Method / Collectio n Time Received Time / Laterality Volume Addenda Addendum by Marcio Arrington MD on 01/18/20 3:32 PM EST --------ADDENDUM #1-------- The INCIDENTAL CT FINDINGS should read: Thinning of the renal cortices bilaterally. Thank you for letting us participate in the care of this patient. For questions regarding this report, please contact e number below. ? --------ORIGINAL REPORT -------- EXAMINATION: NM PHARMACOLOGIC STRESS AND REST MYOCARDIAL PERFUSION CLINICAL HISTORY: per protocol TECHNIQUE: During rest, 9.8 mCi of techn etium-99m sestamibi was administered intravenously. Approximately 20 minutes later, SPECT images of the heart were obtained with reconstruction in the shor t, vertical long and horizontal long axis. The patient then received regadenoson in travenously at a dose of 0.4 mg. 20 seconds later, 28.2 mCi of technetium-99 m sestamibi was administered intravenously. Images of the heart were then again obtained with SPECT reconstruction. A low-dose CT scan was acquired for the purpose of attenuation correction COMPARISON: Chest CT April 02, 2019 FINDINGS: There is a mild reversible defect in the distal aspect of the inferolateral wall. No fixed defects are seen. Functional analysis: Myocardial function: Septal dyskinesis c onsistent with both a left bundle branch block and prior cardiac surgery. Left ventricular ejection fraction: 67 % (normal greater than than 50%). INCIDENTAL CT FINDINGS: Marked dilatation of the left atrium. Co ronary artery and aortic calcifications. Prior cardiac surgery with prosthetic ao rtic and mitral valves. Sternotomy wires present. Right middle lobe nodule is unc hanged. Thickening of the renal cortices bilaterally. There is a hiatal hernia. IMPRESSION: Mild ischemia in the distal inferolatera l wall. No scar. Thank you for letting us participate in the care of this patient. For questions regarding this report, please contact e number below. ? Impressions 01/18/2020 3:14 PM EST Mild ischemia in the distal inferolateral wall. No scar. Thank you for letting us participate in the care of this patient. For questions regarding this report, please contact e number below. ? Narrative 01/18/2020 3:14 PM EST EXAMINATION: NM PHARMACOLOGIC STRESS AND REST MYOCARDIAL PERFUSION CLINICAL HISTORY: per protocol TECHNIQUE: During rest, 9.8 mCi of techn etium-99m sestamibi was administered intravenously. Approximately 20 minutes later, SPECT images of the heart were obtained with reconstruction in the shor t, vertical long and horizontal long axis. The patient then received regadenoson in travenously at a dose of 0.4 mg. 20 seconds later, 28.2 mCi of technetium-99 m sestamibi was administered intravenously. Images of the heart were then again obtained with SPECT reconstruction. A low-dose CT scan was acquired for the purpose of attenuation correction COMPARISON: Chest CT April 02, 2019 FINDINGS: There is a mild reversible defect in the distal aspect of the inferolateral wall. No fixed defects are seen. Functional analysis: Myocardial function: Septal dyskinesis c onsistent with both a left bundle branch block and prior cardiac surgery. Left ventricular ejection fraction: 67 % (normal greater than than 50%). INCIDENTAL CT FINDINGS: Marked dilatation of the left atrium. Co ronary artery and aortic calcifications. Prior cardiac surgery with prosthetic ao rtic and mitral valves. Sternotomy wires present. Right middle lobe nodule is unc hanged. Thickening of the renal cortices bilaterally. There is a hiatal hernia. Procedure Note Marcio Arrington MD - 01/18/2020 EXAMINATION: NM PHARMACOLOGIC STRESS AND REST MYOCARDIAL PERFUSION CLINICAL HISTORY: per protocol TECHNIQUE: During rest, 9.8 mCi of techn etium-99m sestamibi was administered intravenously. Approximately 20 minutes later, SPECT images of the heart were obtained with reconstruction in the shor t, vertical long and horizontal long axis. The patient then received regadenoson in travenously at a dose of 0.4 mg. 20 seconds later, 28.2 mCi of technetium-99 m sestamibi was administered intravenously. Images of the heart were then again obtained with SPECT reconstruction. A low-dose CT scan was acquired for the purpose of attenuation correction COMPARISON: Chest CT April 02, 2019 FINDINGS: There is a mild reversible defect in the distal aspect of the inferolateral wall. No fixed defects are seen. Functional analysis: Myocardial function: Septal dyskinesis c onsistent with both a left bundle branch block and prior cardiac surgery. Left ventricular ejection fraction: 67 % (normal greater than than 50%). INCIDENTAL CT FINDINGS: Marked dilatation of the left atrium. Co ronary artery and aortic calcifications. Prior cardiac surgery with prosthetic ao rtic and mitral valves. Sternotomy wires present. Right middle lobe nodule is unc hanged. Thickening of the renal cortices bilaterally. There is a hiatal hernia. IMPRESSION Mild ischemia in the distal inferolatera l wall. No scar. Thank you for letting us participate in the care of this patient. For questions regarding this report, please contact e number below. Lali Whelan MD IM NM ORDERABLES documented in this encounter Visit Diagnoses Not on filedocumented in this encounter Administered Medications Inactive Administered Medications - up to 3 most recent administrations Medication Order MAR Action Action Date Dose Rate Site regadenoson (LEXISCAN) Given 01/18/2020 12:15 PM EST 0.4 mg Left Arm injection 0.4 mg 0.4 mg, Intravenous, ONCE, 1 dose, On Tue01/18/20 at 1245, Routine technetium (Tc-99m) sestamibi Given 01/18/2020 12:16 PM EST 28.2 mCi Left Arm injection 28.2 mCi 28.2 mCi, Intravenous, ONCE PRN, 1 dose, Starting on Tue01/18/20 at 1216, Until Tue01/18/20 at 1216, Per Protocol, Routine documented in this encounter Care Teams [employer] Relationship Specialty Start Date End Date Pricila Geller APRN PCP - General Family Medicine 11/24/18 [address] [place] [address] documented as of this encounter
--- OUTSIDE RECORDS SUMMARY | 2022-05-20 07:39 | XMS_ITS | Encounter Summary ---
:1955 Author Organization [facility] [place] [address] Care Team Providers Name Role Phone Vielka Gellerh JOELLE Primary Care Provider Reason for Referral Diagnostic Test (Routine) - Closed Specialty Diagnoses / Procedures Referred By Contact Refer red To Contact Cardiology Diagnoses Chronic systolic heart failure Lali Vu Non-Inv Card Lab Procedures Echocardiogram Transthoracic([facility]) [place] [address] [place] [address] Referral ID Status Reason Start Date Expiration Date Visits V isits Requested Authorized [id number] Closed Specialty 12/07/2019 12/06/2020 1 1 Service Requested Reason for Visit Diagnostic Test (Routine) - Closed Specialty Diagnoses / Procedures Referred By Contact Refer red To Contact Cardiology Diagnoses Chronic systolic heart failure Lali Vu Non-Inv Card Lab Procedures Echocardiogram Transthoracic([facility]) [place] [address] [place] [address] Referral ID Status Reason Start Date Expiration Date Visits V isits Requested Authorized [id number] Closed Specialty 12/07/2019 12/06/2020 1 1 Service Requested Encounter Details Date Type Department Care Team Description 01/18/2020 Hospital Encounter Non-Invasive Armani Vu systolic Cardiology Lab Magali Garland MD heart failure [facility] [place], [place] [address] [phone] [place] (Work) [phone] Social History Tobacco Use [...] (PROSCAR) 5 mg 5 mg daily. 08/06/20 Tablet aspirin 81 mg Tablet, Take [...] Visit Cardiology Gianna Lorenzana PA [facility] [address] Cardiology Dept [place] [phone] (Wo rk) Scheduled Procedures Name Priority Associated [...] and Facing Tad A, Understanding Action Plan [facility] Note: Formatting of this note might be d ifferent from the original. Maintain 100% adherence to Entresto twic e daily regimen documented as of this encounter Procedures Procedure Name Priority Date/Time Associated Comments Diagnosis ECHOCARDIOGRAM COMPLETE Routine 01/18/2020 10:27 Chronic systo lic Results for this AM EST heart failure procedure are in the results section. documented in this encounter Results ECHOCARDIOGRAM COMPLETE (01/18/2020 10:27 AM EST) Specimen (Source) Anatomical Location Collection Method / Collectio n Time Received Time / Laterality Volume 01/18/2020 Narrative [facility] - 01/18/2020 11:00 AM ES T Procedure: ?Transthoracic Echocardiogram Patient: ?PAMELA Louis ? (Age): 1955(65y) Med Rec#: ? [id number] ?Sex: ?M ? Site Loc: ? [facility] ?Ht / Wt: ??175.26(cm)/79.3 Pt. Loc: ?Echo Lab ?BSA: ?1.95 Study Date: ?? 01/18/2020 ?Pt. Type: Outpatient Tape: ? Referring: TIMOTHY ROSARIO Reading: Reji James ([id number]) Costume Rental Clerk: Gricelda Oquendo Diagnosis: *Chronic systolic (congestive) heart fa ilure (I50.22) BP: ? 120/75 SUMMARY: 1. The left ventricular chamber size is normal. ??Moderate concentric left ventricular hypertrophy is observed . ??There is normal global left ventricular systolic function. ??The roberto carlos ntitative left ventricular ejection fraction by biplane Walker's m ethod is 57%. ??There are left ventricular segmental wall motion abnorm alities present, as shown in the diagram below. 2. Right ventricular global systolic fun ction is mildly reduced. 3. The left atrium is severely dilated. 4. A porcine bio-prosthetic aortic valve is present. ??The mean trans-valvular gradient across ??the aor tic valve is 14.17 mmHg. Mild (1+/4+) aortic valve prosthesis regurgit ation is present. 5. A bovine bio-prosthetic mitral valve is present. ??The bio-prosthetic mitral valve leaflets are normal. ??The mean gradient across the mitral valve is 3 mmHg. ??@ 75 bpm. ??There is a trace amount of mitral prosthesis regurgitation. 6. See remainder of report for additiona l findings. Findings ? : Study Quality: ? Adequate Left Ventricle: ? The left ventricul ar chamber size is normal. ?Moderate concentric left ventricul ar hypertrophy is observed. ?There is no evidence of LVOT obstr uction. ?No ventricular septal defect is vi sualized. ?There is normal global left ventri cular systolic function. ?The quantitative left ventricular ejection fraction by biplane Walker's method is 57%. ?There are left ventricular segment al wall motion abnormalities present, as shown in the diagram below. ?Left ventricular diastolic functio n is abnormal. ?Doppler assessment is consistent w ith elevated left sided filling pressure. ?The ??basal anteroseptal, basal in ferior, mid anteroseptal, and apical septal wall segments are hypokine tic (score 2). ?The ??basal inferoseptal, and ??mi d inferoseptal wall segments are akinetic (score 3). ?Overall wallmotion score index is ??1.50 Left Atrium: ? The left atrium is se verely dilated. ?There is no evidence of a patent f oramen ovale by color Doppler. Right Ventricle: ? The right ventric le is normal in size. ?Right ventricular global systolic function is mildly reduced. ?No pulmonary hypertension is noted . ?The estimated pulmonary artery sys tolic pressure is 20.64 mmHg. ?The estimated right atrial pressur e is 3 mmHg. Right Atrium: ? The right atrium is normal in size. Aortic Valve: ? The peak instantaneo us trans-valvular gradient across the aortic valve is 20.556942651511 mmHg . Acquired from [employer] ?The mean trans-valvular gradient a cross ??the aortic valve is 14.76861388994 mmHg.SVI 37, DOI 52 ?The calculated aortic valve area i s 1.5491603320035 cm2. ?The size of the prosthetic aortic valve is 24mm. ?The prosthetic aortic valve was im planted on 01/19/2014. ?A porcine bio-prosthetic aortic va lve is present. ?The prosthetic aortic valve leafle ts are normal. ?Mild (1+/4+) aortic valve prosthes is regurgitation is present. Mitral Valve: ? There is mitral maribell lar calcification. ?The mean gradient across the gregoria l valve is 3.3334847772810 mmHg. @ 75 bpm. ?The size of the prosthetic mitral valve is 35mm. ?The prosthetic mitral valve was im planted on 01/19/2014. ?A bovine bio-prosthetic mitral michael ve is present. ?The bio-prosthetic mitral valve le yoandy are normal. ?There is a trace amount of mitral prosthesis regurgitation. Tricuspid Valve: ? The tricuspid michael ve leaflets are morphologically normal. ?There is tricuspid annular calcifi cation. ?There is mild (1+/4+) tricuspid re gurgitation present. Pulmonic Valve: ? The pulmonic valve appears normal in structure and function. ?There is trace pulmonic regurgitat ion present. Pericardium: ? The pericardium appea rs normal and there is no evidence of a pericardial effusion. Aorta: ? The aortic root is normal i n size. ?There is moderate dilatation of th e ascending aorta. 4.5 cm at RPS Pulmonary Artery: ? The main pulmona ry artery appears normal. Venous: ? The inferior vena cava jody ears normal in size. ?There is a greater than 50% respir atory change in the inferior vena cava dimension. Misc: ? See remainder of report for additional findings. ?Two-dimensional echo, spectral Dop pler and color Doppler performed. Chambers 2D ?Value ?Units (Range) ? RVIDd ??Base ? 3.7 ?cm ? RVIDd ??Mid (AP) ? 2.3 ?cm ? IVSd (2D) ? 1.11 ? cm ? LVPWd (2D) ?1.14 ? cm ? IVS:LVPW ratio (2D) 0.97 ? ratio ? RWT (2D) ?0.49 ? ratio ? RWT PW (2D) ? 0.49 ? ratio ? LVIDd (2D) ?4.63 ? cm ? LVIDs (2D) ?2.94 ? cm ? LVIDd (2D) index ?2.37 ? cm/m2 ? LVIDs (2D) index ?1.51 ? cm/m2 ? LV FS (2D) ?36.36 ?% ? EF Teichholz (2D) ?? 66.12 ?% ? Ao root diameter (2D3.43 ? cm (2.1 - 3.6) ? Ascending Ao ?4.42 ? cm (2 - 3.5) ? Volumes/Mass ?Value ?Units (Range) ? LA Area 4 CH ?42 ? cm2 (<21) ? LA ESV BP (A/L) inde97.1 ? ml/m2 ? RA AREA 4CH ? 19 ? cm2 ? LV ESV SP 4CH (MOD) 59.02 ? ml ? LV ESV SP 2CH (MOD) 47.42 ? ml ? LV EDV BP ? 123.28 ? ml ? LV ESV BP ? 53.15 ?ml ? LV EDV BP index ? 63.17 ?ml/m2 ? LV ESV BP index ? 27.23 ?ml/m2 ? BP EF (MOD) ? 56.88 ?% ? LV mass (2D) ?188.29 ? g ? LV mass (2D) index ??96.48 ?g/m2 ? Diastolic/Systolic Function ?Value ?Units (Range) ? MV E-wave Vmax ?1.26 ? m/sec ? MV deceleration mnuk414.05 ? m sec ? LV septal e' Vmax ?? 0.05 ? m/sec ? LV lateral e' Vmax ??0.05 ? m/sec ? LV average e' Vmax ??0.05 ? m/sec ? LV E:e' septal ratio25.15 ? ratio ? LV E:e' lateral rati25.15 ? ratio ? LV average E:e' rati25.15 ? ratio ? Aortic Valve ?Value ?Units (Range) ? AV Vmax ? 2.29 ? m/sec ? AV VTI ?40.53 ?cm ? AV peak gradient ?20.93 ?mmHg ? AV mean gradient ?14.17 ?mmHg ? LVOT diameter ? 2.09 ? cm ? LVOT Vmax ? 1.15 ? m/sec ? LVOT VTI ?21.03 ?cm ? LVOT peak gradient ??5.28 ? mmHg ? LVOT mean gradient ??3.74 ? mmHg ? DOI (VTI) ? 0.52 ? ratio ? DOI (Vmax) ?0.5 ?ratio ? SV LVOT ? 72.37 ?ml ? SV LVOT Index ? 37 ? ml/m2 ? CO LVOT ? 8.9 ?l/min ? Cardiac index ? 4.56 ? l/min/m2 ? AMAURY (continuity Vmax1.73 ? cm2 ? AMAURY (continuity Vmax0.89 ? cm2/m2 ? AMAURY (continuity VTI)1.79 ? cm ? AMAURY (continuity VTI)0.91 ? cm2/m2 ? Mitral Valve ?Value ?Units (Range) ? MV Vmax ? 1.54 ? m/sec ? MV VTI ?27.48 ?cm ? MV peak gradient ?9.54 ? mmHg ? MV mean gradient ?3.35 ? mmHg ? MVA (continuity VTI)2.63 ? cm2 ? Tricuspid Valve ?Value ?Units (Range) ? TAPSE ? 1.4 ?cm ? RV lateral s' Vmax ??0.07 ? m/sec ? TR Vmax ? 2.1 ?m/sec ? TR peak gradient ?17.64 ?mmHg ? RAP ? 3 ?mmHg ? RVSP ?20.64 ?mmHg ? Pulmonic Valve/Qp:Qs ?Value ?Units (Range) ? LA end-diastolic Vma1.19 ? m/sec ? PA end-diastolic pre8.69 ? mmHg ? Measurement Trending Name ? 01/18/2020 ?04/02/2019 ?08/31/2017 ? 08/30/2017 ? RAP ?3 3 8 RVSP ? 20.64 22 37 Wall Motion: Segment Name ?Rest ? Base-Anteroseptal ?? Hypokinetic ? Base-Anterior ? Normal ? Base-Anterolateral ??Normal ? Base-Posterolateral Normal ? Base-Inferior ? Hypokinetic ? Base-Inferoseptal ?? Akinetic ? Mid-Anteroseptal ?Hypokinetic ? Mid-Anterior ?Normal ? Mid-Anterolateral ?? Normal ? Mid-Posterolateral ??Normal ? Mid-Inferior ?Normal ? Mid-Inferoseptal ?Akinetic ? [place]-Septal ? Hypokinetic ? [place]-Anterior ? Normal ? [place]-Lateral ?Normal ? [place]-Inferior ? Normal ? [place]-Tip ?Normal ? This report has been electronically sign ed by: _ Reji James M.D. ? 01/18/2020 1 0:37:03 Images reviewed and interpretation enrique brunson [facility] Cardiac Ultrasound Laboratory Procedure Note Reji James MD - 01/18/2020Formatt ing of this note might be different from the original. Procedure: Transthoracic Echocardiogram Patient: PAMELA HUTTON(Age): [birth year](65y) Med Rec#: [id number] Sex: M Site Loc: [facility] Ht / Wt: 175.26(cm)/79.3 Pt. Loc: Echo Lab BSA: 1.95 Study Date: 01/18/2020 Pt. Type: Outpati ent Tape: Referring: TIMOTHY ROSARIO Reading: Reji James ([id number]) Costume Rental Clerk: Gricelda Oquendo Diagnosis: *Chronic systolic (congestive) heart fa ilure (I50.22) BP: 120/75 SUMMARY: 1. The left ventricular chamber size is normal. Moderate concentric left ventricular hypertrophy is observed . There is normal global left ventricular systolic function. The quant itative left ventricular ejection fraction by biplane Walker's m ethod is 57%. There are left ventricular segmental wall motion abnorm alities present, as shown in the diagram below. 2. Right ventricular global systolic fun ction is mildly reduced. 3. The left atrium is severely dilated. 4. A porcine bio-prosthetic aortic valve is present. The mean trans-valvular gradient across the aorti c valve is 14.17 mmHg. Mild (1+/4+) aortic valve prosthesis regurgit ation is present. 5. A bovine bio-prosthetic mitral valve is present. The bio-prosthetic mitral valve leaflets are normal. The me an gradient across the mitral valve is 3 mmHg. @ 75 bpm. There is a tr akin amount of mitral prosthesis regurgitation. 6. See remainder of report for additiona l findings. Findings : Study Quality: Adequate Left Ventricle: The left ventricular aakash mber size is normal. Moderate concentric left ventricular hy pertrophy is observed. There is no evidence of LVOT obstructio n. No ventricular septal defect is visuali zed. There is normal global left ventricular systolic function. The quantitative left ventricular eject ion fraction by biplane Walker's method is 57%. There are left ventricular segmental wa ll motion abnormalities present, as shown in the diagram below. Left ventricular diastolic function is abnormal. Doppler assessment is consistent with e levated left sided filling pressure. The basal anteroseptal, basal inferior, mid anteroseptal, and apical septal wall segments are hypokine tic (score 2). The basal inferoseptal, and mid inferos eptal wall segments are akinetic (score 3). Overall wallmotion score index is 1.50 Left Atrium: The left atrium is severely dilated. There is no evidence of a patent forame n ovale by color Doppler. Right Ventricle: The right ventricle is normal in size. Right ventricular global systolic funct ion is mildly reduced. No pulmonary hypertension is noted. The estimated pulmonary artery systolic pressure is 20.64 mmHg. The estimated right atrial pressure is 3 mmHg. Right Atrium: The right atrium is normal in size. Aortic Valve: The peak instantaneous tra ns-valvular gradient across the aortic valve is 20.446555754337 mmHg . Acquired from [employer] The mean trans-valvular gradient across the aortic valve is 14.31983115808 mmHg.SVI 37, DOI 52 The calculated aortic valve area is 1.7 804359775137 cm2. The size of the prosthetic aortic valve is 24mm. The prosthetic aortic valve was implant ed on 01/19/2014. A porcine bio-prosthetic aortic valve i s present. The prosthetic aortic valve leaflets ar e normal. Mild (1+/4+) aortic valve prosthesis re gurgitation is present. Mitral Valve: There is mitral annular ca lcification. The mean gradient across the mitral michael ve is 3.4971623257718 mmHg. @ 75 bpm. The size of the prosthetic mitral valve is 35mm. The prosthetic mitral valve was implant ed on 01/19/2014. A bovine bio-prosthetic mitral valve is present. The bio-prosthetic mitral valve leaflet s are normal. There is a trace amount of mitral prost hesis regurgitation. Tricuspid Valve: The tricuspid valve oscar flets are morphologically normal. There is tricuspid annular calcificatio n. There is mild (1+/4+) tricuspid regurgi tation present. Pulmonic Valve: The pulmonic valve appea rs normal in structure and function. There is trace pulmonic regurgitation p resent. Pericardium: The pericardium appears nor mal and there is no evidence of a pericardial effusion. Aorta: The aortic root is normal in size . There is moderate dilatation of the asc ending aorta. 4.5 cm at RPS Pulmonary Artery: The main pulmonary art santos appears normal. Venous: The inferior vena cava appears n ormal in size. There is a greater than 50% respiratory change in the inferior vena cava dimension. Misc: See remainder of report for additi onal findings. Two-dimensional echo, spectral Doppler and color Doppler performed. Chambers 2D Value Units (Range) RVIDd Base 3.7 cm RVIDd Mid (AP) 2.3 cm IVSd (2D) 1.11 cm LVPWd (2D) 1.14 cm IVS:LVPW ratio (2D) 0.97 ratio RWT (2D) 0.49 ratio RWT PW (2D) 0.49 ratio LVIDd (2D) 4.63 cm LVIDs (2D) 2.94 cm LVIDd (2D) index 2.37 cm/m2 LVIDs (2D) index 1.51 cm/m2 LV FS (2D) 36.36 % EF Teichholz (2D) 66.12 % Ao root diameter (2D3.43 cm (2.1 - 3.6) Ascending Ao 4.42 cm (2 - 3.5) Volumes/Mass Value Units (Range) LA Area 4 CH 42 cm2 (<21) LA ESV BP (A/L) inde97.1 ml/m2 RA AREA 4CH 19 cm2 LV ESV SP 4CH (MOD) 59.02 ml LV ESV SP 2CH (MOD) 47.42 ml LV EDV BP 123.28 ml LV ESV BP 53.15 ml LV EDV BP index 63.17 ml/m2 LV ESV BP index 27.23 ml/m2 BP EF (MOD) 56.88 % LV mass (2D) 188.29 g LV mass (2D) index 96.48 g/m2 Diastolic/Systolic Function Value Units (Range) MV E-wave Vmax 1.26 m/sec MV deceleration uptq023.05 msec LV septal e' Vmax 0.05 m/sec LV lateral e' Vmax 0.05 m/sec LV average e' Vmax 0.05 m/sec LV E:e' septal ratio25.15 ratio LV E:e' lateral rati25.15 ratio LV average E:e' rati25.15 ratio Aortic Valve Value Units (Range) AV Vmax 2.29 m/sec AV VTI 40.53 cm AV peak gradient 20.93 mmHg AV mean gradient 14.17 mmHg LVOT diameter 2.09 cm LVOT Vmax 1.15 m/sec LVOT VTI 21.03 cm LVOT peak gradient 5.28 mmHg LVOT mean gradient 3.74 mmHg DOI (VTI) 0.52 ratio DOI (Vmax) 0.5 ratio SV LVOT 72.37 ml SV LVOT Index 37 ml/m2 CO LVOT 8.9 l/min Cardiac index 4.56 l/min/m2 AMAURY (continuity Vmax1.73 cm2 AMAURY (continuity Vmax0.89 cm2/m2 AMAURY (continuity VTI)1.79 cm AMAURY (continuity VTI)0.91 cm2/m2 Mitral Valve Value Units (Range) MV Vmax 1.54 m/sec MV VTI 27.48 cm MV peak gradient 9.54 mmHg MV mean gradient 3.35 mmHg MVA (continuity VTI)2.63 cm2 Tricuspid Valve Value Units (Range) TAPSE 1.4 cm RV lateral s' Vmax 0.07 m/sec TR Vmax 2.1 m/sec TR peak gradient 17.64 mmHg RAP 3 mmHg RVSP 20.64 mmHg Pulmonic Valve/Qp:Qs Value Units (Range) LA end-diastolic Vma1.19 m/sec PA end-diastolic pre8.69 mmHg Measurement Trending Name 01/18/2020 04/02/2019 08/31/2017 08/30/2017 RAP 3 3 8 RVSP 20.64 22 37 Wall Motion: Segment Name Rest Base-Anteroseptal Hypokinetic Base-Anterior Normal Base-Anterolateral Normal Base-Posterolateral Normal Base-Inferior Hypokinetic Base-Inferoseptal Akinetic Mid-Anteroseptal Hypokinetic Mid-Anterior Normal Mid-Anterolateral Normal Mid-Posterolateral Normal Mid-Inferior Normal Mid-Inferoseptal Akinetic [place]-Septal Hypokinetic [place]-Anterior Normal [place]-Lateral Normal [place]-Inferior Normal [place]-Tip Normal This report has been electronically sign ed by: _ Reji James M.D. 01/18/2020 10:37:0 3 Images reviewed and interpretation verif ied [facility] Cardiac Ultrasound Laboratory Lali Whelan MD ECHO ORDERABLES Performing Organization Address City/State/ZIP Code Phon e Number [facility] documented in this encounter Visit Diagnoses Diagnosis Chronic systolic heart failure documented in this encounter Care Teams Automobile Upholsterer Apprentice Relationship Specialty Start Date End Date Pricila Geller APRN PCP - General Family Medicine 11/24/18 [address] [place] [address] documented as of this encounter
--- OUTSIDE RECORDS SUMMARY | 2022-05-20 07:39 | XMS_ITS | Encounter Summary ---
:1955 Author Organization [facility] [place] [address] Care Team Providers Name Role Phone Pricila Geller JOELLE Primary Care Provider Encounter Details Date Type Department Care Team Description 06/15/2019 Laboratory Appointment Lab 3L [facility] [place] [id number] Social History Tobacco Use Types Packs/Day Years [...] Visit Cardiology Gianna Lorenzana PA [facility] Cardiology Dept [place], [place] [address] (Wo rk) Scheduled Procedures Name [...] and Facing Tad A, Understanding Action Plan [facility] Note: Formatting of this note might be d ifferent from the original. Maintain 100% adherence to Entresto twic e daily regimen documented as of this encounter Procedures Procedure Name Priority Date/Time Associated Comments Diagnosis PRO-BRAIN NATRIURETIC STAT 06/15/2019 9:46 AM Chronic systo lic Results for this PEPTIDE EDT heart failure procedure are in the results section. BASIC METABOLIC PANEL STAT 06/15/2019 9:46 AM Chronic systo lic Results for this (NON-FASTING) EDT heart failure procedure are in the results section. documented in this encounter Results (ABNORMAL) Basic Metabolic Panel (non-fasting) (06/15/2019 9:46 AM EDT) P athologist Signature Glucose Lvl 97 65 - 199 [facility] mg/dL [facility] Comment: Diabetes: >=200 mg/dL plus symp toms BUN 26 (H) 10 - 20 mg/dL [facility] Creatinine 1.73 (H) 0.80 - 1.50 mg/dL [facility] Sodium 132 (L) 135 - 145 mmol/L [facility] Potassium 4.8 3.5 - 5.0 mmol/L [facility] Comment: Please note: ??Patients with WBC >100,00 0 may have falsely elevated Potassium levels. ??For accurate Potassium quantif ication in these patients send serum separator tube (gold top) for subsequent determinations. ??Contact the Clinical Chemistry Laboratory if there are any qu estions. Chloride 97 (L) 98 - 107 mmol/L [facility] CO2 25 22 - 31 mmol/L [facility] Anion Gap 10 5 - 15 mmol/L [facility] Calcium 9.6 8.5 - 10.5 mg/dL [facility] Estimated GFR 40 (L) >=60 mL/min/1.73 m?? [facility] Comment: The eGFR was calculated using the CKD-EP I equation. As with all creatinine based estimates of kidney function, eGFR values calculated with the CKD-EPI equation are not accurate in patients wi th acute kidney failure, extremes of body mass or the acutely ill. http://Drimmi/[facility] eGFR 47 (L) >=60 mL/min/1.73 m?? [facility] Comment: The eGFR was calculated using the CKD-EP I equation. As with all creatinine based estimates of kidney function, eGFR values calculated with the CKD-EPI equation are not accurate in patients wi th acute kidney failure, extremes of body mass or the acutely ill. http://Drimmi/[facility]ING[facility] Specimen Anatomical Collection Method Collection Time Receive d Time (Source) Location / / Volume Laterality Blood specimen 06/15/2019 9:46 AM 019 (specimen) EDT 10:07 AM EDT Resulting Agency Comment Spec In Lab Lali Whelan MD CHEMISTRY ORDERABLES Performing Organization Address City/State/ZIP [place] [address] (ABNORMAL) pro-Brain Natriuretic Peptide (06/15/2019 9:46 AM EDT) P athologist Signature ProBNP 950 (H) <=125 pg/mL [facility] Specimen Anatomical Collection Method Collection Time Receive d Time (Source) Location / / Volume Laterality Blood specimen 06/15/2019 9:46 AM 019 (specimen) EDT 10:07 AM EDT Resulting Agency Comment Spec In Lab Lali Whelan MD CHEMISTRY ORDERABLES Performing Organization Address City/State/ZIP [place] [address] documented in this encounter Visit Diagnoses Diagnosis Chronic systolic heart failure documented in this encounter Care Teams Die Maker Electronic Relationship Specialty Start Date End Date Pricila Geller APRN PCP - General Family Medicine 11/24/[address] [place] [address] documented as of this encounter
--- OUTSIDE RECORDS SUMMARY | 2022-05-20 07:39 | XMS_ITS | Encounter Summary ---
:1955 Author Organization [facility] [place] [address] Care Team Providers Name Role Phone Pricila Gleler APRN Primary Care Provider Reason for Visit Reason Comments Medication Management Medication Refill Encounter Details Date Type Department Care Team Description 10/19/2019 [place] [facility] [place] [facility] Selina Ray RPH Manageme nt; [facility] [place] [address] Social History Tobacco Use Types Packs/Day Years [...] documented as of this encounter Progress Notes Selina John RPH - 10/19/2019 10:31 AM EST Clinical Management Plan: Refill Specialty Pharmacy Consultation; Selina John RPH Comprehensive Medication Management (CMM) Cong Khan is a 64 y.o. (1955) [...] be held: No Assessment and Recommendations: Title Allergies and Drug intolerance: No Known Allergies Medication Reconciliation Discrepancies (compared to [facility] med list) -none New medications: no New medical conditions: no New allergies: no Adherence: Medication Adherence Adherence tools used: directed education Are you experiencing any side effects from your medications? no Pt understands no changes to current drug regimen were made at the appointment and that [facility] is providing recommendations (summary located at top of note) for provider review and follow up. Selina John [facility] 10/19/19 10:32 AM documented in this encounter Plan of Treatment Upcoming Encounters Date Type Specialty Care Team Description 06/16/2022 Laboratory Appointment Lab 06/16/2022 Office Visit Cardiology Gianna Lorenzana PA [facility] Cardiology Dept [place], [place] [address] (Wo rk) Scheduled Procedures Name [...] Tad A, Understanding Action Plan [facility] Note: Formatting of this note might be d ifferent from the original. Maintain 100% adherence to Entresto twic e daily regimen documented as of this encounter Visit Diagnoses Not on filedocumented in this encounter Care Teams Windshield Repair Technician Relationship Specialty Start Date End Date Pricila Geller APRN PCP - General Family Medicine 11/24/18 [place] [address] documented as of this encounter
--- OUTSIDE RECORDS SUMMARY | 2022-05-20 07:39 | XMS_ITS | Encounter Summary ---
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 mmol/L [facility] Comment: Please note: ??Patients with WBC >100,00 0 may have falsely elevated Potassium levels. ??For accurate Potassium quantif ication in these patients send serum separator tube (gold top) for subsequent determinations. ??Contact the Clinical Chemistry Laboratory if there are any qu estions. Chloride 101 98 - 107 mmol/L [facility] CO2 22 22 - 31 mmol/L [facility] Anion Gap 12 5 - 15 mmol/L [facility] Calcium 9.5 8.5 - 10.5 mg/dL [facility] Total Protein 7.8 6.1 - 8.0 gm/dL [facility] Albumin 4.5 3.2 - 5.2 gm/dL [facility] AST 13 0 - 39 unit/L [facility] ALT 13 0 - 55 unit/L [facility] Alk Phos 36 (L) 40 - 120 unit/L [facility] Total Bilirubin 0.3 0.2 - 1.3 mg/dL [facility] Estimated GFR 36 (L) >=60 mL/min/1.73 m?? [facility] Comment: The eGFR was calculated using the CKD-EP I equation. As with all creatinine based estimates of kidney function, eGFR values calculated with the CKD-EPI equation are not accurate in patients wi th acute kidney failure, extremes of body mass or the acutely ill. [email or web address]/[email or web address] eGFR 41 (L) >=60 mL/min/1.73 m?? [facility] Comment: The eGFR was calculated using the CKD-EP I equation. As with all creatinine based estimates of kidney function, eGFR values calculated with the CKD-EPI equation are not accurate in patients wi th acute kidney failure, extremes of body mass or the acutely ill. [email or web address]/[email or web address] Specimen Anatomical Collection Method Collection Time Receive d Time (Source) Location / / Volume Laterality Blood specimen 06/05/2019 3:48 PM 019 3:56 (specimen) EDT PM EDT Resulting Agency Comment Spec In Lab Bessy Greenfield MD CHEMISTRY ORDERABLES Performing Organization Address City/State/[place] [address] [id number] (06/05/2019 2:00 PM EDT) Narrative Jose Robledo PA - 06/05/2019 2:00 PM EDT Jose Robledo PA ? 06/06/2019 12:29 PM [facility] Liver Fibrosis Asses sment Report Indication: ?? Hepatitis C infection, s/ p treatment with Harvoni x 8 weeks Performed by: ??LUIS ALFREDO Ron Procedure: Vibration Controlled Transien t Elastography (VCTE) or Fibroscan [place] Protocol: Patient's identity, procedure and site were [...] with a 3.5MHz ultrasonic signal, using t Fibroscan probe. Skin to liver capsule distance [...] with no complications. Fibroscan Results: Median kPa: 3.4 Mean IQR: 21% (goal is <30 %) Number of valid measurements: 10 (10 req uired) Number of invalid measurements: 3 Predicted fibrosis stage: F0-F1 CAP (dB/m): 298 Estimated steatosis grade: 2-3/3 % hepatocytes affected: 66% Interpretation: Based on this Fibroscan result, history, clinical examination and review of laboratory and radiological da ta, this patient likely has stage 0-1 liver fibrosis and grade 2 -3 steatosis affecting approximately 66% of hepatocytes. Bessy Greenfield MD PROCEDURE/MINOR SURGICAL ORD ERABLES documented in this encounter Visit Diagnoses Diagnosis Chronic hepatitis C without hepatic coma - Primary documented in this encounter Care Teams Engraver Ornamental Design Relationship Specialty Start Date End Date Pricila Geller APRN PCP - General Family Medicine 11/24/18 [facility] [place] [address] documented as of this encounter
--- OUTSIDE RECORDS SUMMARY | 2022-05-20 07:39 | XMS_ITS | Encounter Summary ---
:1955 Author Organization [facility] [place] [address] Care Team Providers Name Role Phone Pricila Geller APRN Primary Care Provider Reason for Visit Reason Comments Medication Management Encounter Details Date Type Department Care Team Description 09/21/2019 Specialty Pharmacy Pharmacy at [facility] [place] [id number] Social History Tobacco Use Types Packs/Day Years [...] encounter Progress Notes Tad Canada RPH - 09/21/2019 1:43 PM EDT Clinical Management Plan: Refill Specialty Pharmacy Consultation; Tad Canada RPH Comprehensive [...] Care Plan: no Assessment and Recommendations: Title Allergies and Drug intolerance: No Known Allergies Medication Reconciliation Discrepancies (compared to [facility] med list) - none New medications: no [...] problems identified Adherence tools used: directed education Confirmed plan for next specialty medication refill: delivery by pharmacy Refills needed for supportive medications: not needed Are you experiencing any side effects from your medications? no Pt understands no changes to current drug regimen were made at the appointment and that [facility] is providing recommendations (summary located at top of note) for provider review and follow up. Tad Canada RPH 09/21/19 1:44 PM documented in this encounter Plan of Treatment Upcoming Encounters Date Type Specialty Care Team Description 06/16/2022 Laboratory Appointment Lab 06/16/2022 Office Visit Cardiology Gianna Lorenzana PA [facility] Cardiology Dept [place], [place] [address] (Wo rk) Scheduled Procedures Name [...] No Daniela ward, Compliance and Facing Tad Wynne Understanding Action Plan [facility] Note: Formatting of this note might be d ifferent from the original. Maintain 100% adherence to Entresto twic e daily regimen documented as of this encounter Visit Diagnoses Not on filedocumented in this encounter Care Teams Briefcase Sewer Relationship Specialty Start Date End Date Pricila Geller APRN PCP - General Family Medicine 11/24/18 [address] [place] [address] documented as of this encounter
--- OUTSIDE RECORDS SUMMARY | 2022-05-20 07:39 | XMS_ITS | Encounter Summary ---
:1955 Author Organization [facility] [address] Care Team Providers Name Role Phone Pricila Geller APRN Primary Care Provider Encounter Details Date Type Department Care Team Description 01/18/2020 Hospital Encounter Non-Invasive Armani Vu systolic Cardiology Lab Magali Garland MD heart failure [place], [place] [address] [phone] [place], [place] (Work) [phone] Social History Tobacco Use [...] Medical [facility] Cardiology Dept [place], [place] [address] (Wo rk) Scheduled Procedures Name [...] Name Priority Date/Time Associated Diagnosis Comme nts NUCLEAR EXERCISE STRESS Routine 01/18/2020 12:19 PM Chronic sy stolic heart CARDIOLOGY EST failure documented in this encounter Results Nuclear Exercise Stress Cardiology (01/18/2020 12:19 PM EST) Specimen (Source) Anatomical Location Collection Method / Collectio n Time Received Time / Laterality Volume Narrative This result has an attachment that is no t available. Lali Whelan MD CARDIAC SERVICES ORDERABLE S documented in this encounter Visit Diagnoses Diagnosis Chronic systolic heart failure documented in this encounter Care Teams Financial Institution Vice President Relationship Specialty Start Date End Date Pricila Geller APRN PCP - General Family Medicine 11/24/18 [place] [id number] documented as of this encounter
--- OUTSIDE RECORDS SUMMARY | 2022-05-20 07:39 | XMS_ITS | Encounter Summary ---
:1955 Author Organization [facility] [place] [address] Care Team Providers Name Role Phone Pricila Geller OUTBOUND SALES PROFESSIONAL Primary Care Provider Encounter Details Date Type Department Care Team Description 06/19/2019 Telephone Orthopaedics at [facility] Saeid Yusuf, [place] [phone] Social History Tobacco Use Types Packs/Day [...] this encounter Miscellaneous Notes Telephone Encounter - Saeid Yusuf RN - 06/19/2019 3:[address] Conrad, Lab called and they are unable to perform the cell count as the fluid specimen clotted after the right hip aspiration. documented in this encounter Plan of Treatment Upcoming Encounters Date Type Specialty Care Team Description 06/16/2022 Laboratory Appointment Lab 06/16/2022 Office Visit Cardiology Gianna Lorenzana PA [facility] Cardiology Dept [place], [place] [address] (Wo rk) Scheduled Procedures Name [...] on filedocumented in this encounter Care Teams Special Education Preschool Teacher Relationship Specialty Start Date End Date Pricila Geller APRN PCP - General Family Medicine 11/24/18 [place] [address] documented as of this encounter
--- OUTSIDE RECORDS SUMMARY | 2022-05-20 07:39 | XMS_ITS | Encounter Summary ---
:1955 Author Organization [facility] [place] [address] Care Team Providers Name Role Phone Pricila Geller APRN Primary Care Provider Reason for Visit Reason Comments Medication Management Medication Refill Encounter Details Date Type Department Care Team Description 11/15/2019 Specialty Pharmacy Pharmacy at [facility] Selina Ray RPH Manageme nt; [facility] [place] [address] Social History Tobacco Use Types Packs/Day Years [...] encounter Progress Notes Selina John RPH - 11/15/2019 4:17 PM EST Clinical Management Plan: Refill Specialty [...] Known Allergies Medication Reconciliation Discrepancies (compared to [facility] med list) -none New medications: no New medical conditions: no New allergies: no Adherence: Medication Adherence Adherence tools used: directed education Are you experiencing any side effects from your medications? no Pt understands no changes to current drug regimen were made at the appointment and that [facility] is providing recommendations (summary located at top of note) for provider review and follow up. Selina John RP 11/15/19 4:18 PM documented in this encounter Plan of Treatment Upcoming Encounters Date Type Specialty Care Team Description 06/16/2022 Laboratory Appointment Lab 06/16/2022 Office Visit Cardiology Gianna Lorenzana PA [facility] Cardiology Dept [place], [place] [address] (Wo rk) Scheduled Procedures Name [...] and Facing Tad A, Understanding Action Plan [facility] Note: Formatting of this note might be d ifferent from the original. Maintain 100% adherence to Entresto twic e daily regimen documented as of this encounter Visit Diagnoses Not on filedocumented in this encounter Care Teams Hay Sorter Relationship Specialty Start Date End Date Pricila Geller APRN PCP - General Family Medicine 11/24/18 [place] [address] documented as of this encounter
--- OUTSIDE RECORDS SUMMARY | 2022-05-20 07:39 | XMS_ITS | Encounter Summary ---
:1955 Author Organization [facility] [place] [address] Care Team Providers Name Role Phone BenjamínPricila marcus JOELLE Primary Care Provider Reason for Referral Diagnostic Test (Routine) - Closed Specialty Diagnoses / Procedures Referred By Contact Refer red To Contact Cardiology Diagnoses Chronic systolic heart failure Lali Vu [facility] Non-Inv Card Lab Procedures Echocardiogram Transthoracic([place]) [place] [address] [place] [address] Referral ID Status Reason Start Date Expiration Date Visits V isits Requested Authorized [id number] Closed Specialty 12/07/2019 12/06/2020 1 1 Service Requested Encounter Details Date Type Department Care Team Description 12/07/2019 Office Visit Cardiology at [facility] Avelino Whelan Chronic systolic [facility] Lali Garland MD heart failure [facility] [address] [place] [address] (Wo rk) Social History Tobacco Use Types [...] Sign Reading Time Taken Comments Blood Pressure 83/58 12/07/2019 10:26 AM EST Pulse 79 12/07/2019 10:26 AM EST Temperature - - Respiratory Rate - - Oxygen Saturation 97% 12/07/2019 10:26 AM EST Inhaled Oxygen Concentration - - Weight 76.7 kg (169 lb) 12/07/2019 10:26 AM EST Height 175.3 cm (5' 9) 12/07/2019 10:26 AM EST Body Mass Index 24.96 12/07/2019 10:26 AM EST documented in this encounter Patient Instructions Patient InstructionsGilstraLali Michel MD - 12/07/2019 10:20 AM EST 1. Stop spironolactone 2. Return in 2-4 weeks to for stress test and TTE 3. We will get blood work when you come back for the stress test 4. Pending the results of the stress test and ultrasound, we will consider a formal cardiopulmonary exercise test 5. Continue entresto at current dose of 24/ twice a day documented in this encounter Progress Notes Lali Vu MD - 12/07/2019 10:20 AM EST [facility] Note Name: Cong Khan Date: 12/07/2019 Chief Complaint: HFrEF, nonishcemic/valvular History of Present Illness Cong Khan is a 64 y.o. 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 Since I last saw him, he has been doing well. He saw EP. Dr. Ayala who explained the myriad of options he has but was reluctant to proceed at this time given that his atrial fibrillation appears well controlled and the patient is quite functional. At present, the patient's only complaint is shortness of breath when exercising or walking up hills.His Apple Watch tells him his heart rate is only about 110 when he does this. Otherwise, he denies orthopnea, PND or lower extremity edema. He denies any symptoms of TIA or stroke. He is NYHA class II and euvolemic. Review of Systems All other 12 point review of systems negative except as noted above. Past Medical History Patient Active Problem List Diagnosis ??? Acute systolic congestive heart failure Prior echo from [facility] 10/2015: EF 40-45%, mean aortic valve gradient 22mmHg [place] echo Aug 2017: EF 20-25%, DVI 0.35, ascending aorta 4.2cm, aortic arch 5.3cm Current echo [facility] 08/31/17:EF 31%, septum paradoxical motion (dys-synchrony present), [...] Valvular disease - mitral valve prolapse, repair ([place], [place]) 11/07/09: P2 resection, sliding annuloplasty, placement of #38 Future band. - [facility] 12/01/10 : mitral valve replacement with a #33 EPIC IC procedure, tricuspid valve repair with a #32 MC3 ring, MAZE - AVR 2013. ([facility] [place]): no records available. ??? Aneurysm of aortic arch Noted on echo at [facility] 5.3cm (08/30/2017) ??? Hypertension ??? H/O mitral valve replacement with tissue graft ??? H/O aortic valve replacement with porcine valve Cardiac Medications Metoprolol succinate 175 mg in the morning and 75 mg at night Apixaban 2.5 mg twice a day Spironolactone 25 mg daily Aspirin 81 mg daily 166 pounds today Torsemide 20 mg daily Losartan 50 mg daily Full Medication List Outpatient Medications Marked as Taking for the 12/07/19 encounter (Office Visit) with Lali Vu MD Medication Sig Dispense Refill ??? sacubitril-valsartan (ENTRESTO) 24-26 mg Tablet tablet Take 1 tablet by mouth 2 times daily. 60 tablet 3 ??? apixaban (ELIQUIS) 2.5 mg Tablet Take 1 tablet by mouth 2 times daily. 180 tablet 3 ??? tamsulosin (FLOMAX) 0.4 mg Capsule 0.4 mg daily. 11 ??? finasteride (PROSCAR) 5 mg Tablet 5 mg daily. 11 ??? metoprolol (LOPRESSOR) 100 mg Tablet Take 175 mg by mouth every morning. ??? metoprolol succinate (TOPROL-XL) 50 mg Tablet Sustained Release 24 hr Take 75 mg by mouth nightly. ??? spironolactone (ALDACTONE) 25 mg Tablet Take 25 mg by mouth daily. ??? aspirin 81 mg Tablet, Chewable Take 81 mg by mouth daily. 30 tablet 3 ??? torsemide (DEMADEX) 20 mg Tablet Take 2 tablets by mouth daily. (Patient taking differently: Take 20 mg by mouth daily.) 30 tablet 3 Allergies No Known Allergies Social & Family History TOB: Social History Tobacco Use Smoking Status Never Smoker Smokeless Tobacco Never Used ETOH: Social History Substance and Sexual Activity Alcohol Use No Comment: Former heavy daily user quit in 201312/07/2019 Illicits: Social History Substance and Sexual Activity Drug Use No Comment: Former cocaine user FHx: Family History Problem Relation Age of Onset ??? Emphysema Mother ??? Hypertension Mother ??? Alcohol Use Disorder Father ??? Aneurysm Father ??? Hypertension Father ??? Substance Use Disorder Brother Physical Exam Vitals: 12/07/19 1026 BP: (!) 83/58 Pulse: 79 SpO2: 97% Weight: 76.7 kg (169 lb) Height: 175.3 cm (5' 9) Weight: 169 pounds, stable General: NAD Neck: JVP less than 10 cm of water Cardiac: regular rate and rhythm without murmurs rubs or gallops Lungs: CTAB Abdomen: Soft NT/ND Extremities: WWP w/ no significant lower extremity edema Relevant Labs Labs today are notable for potassium of 4.5, creatinine of 2.4 up from 1.8, proBNP of 539 down from 950, last LDL was 82 in 06/08 Relevant CardiacStudies ZIO Patch from March 2019 with a predominant rhythm of atrial flutter with reasonable rate control, patient's symptoms appear to correlate with atrial flutter and reasonable rate control. Transthoracic echocardiogram from March 2019 with moderate LVH. EF 38%. RV normal in size with mildly reduced function. Bioprosthetic valve in aortic position with moderate regurgitation. Bioprosthetic valve in the mitral position with a mean gradient of 5 at 75 bpm. Trace MR. Compared to prior study from 2018, no significant change. Moderate aortic arch dilatation at 4.5cm. ?? Assessment: Cong Khan is a 64 y.o. 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 In looking through his records, I cannot find any documentation of an ischemic work-up. Certainly hehad an ischemic evaluation prior to his multiple cardiac surgeries in the past, but at this point that would all be at least a decade old. Simply to cover our bases, it is worth exonerate and ischemic disease, and to do this we will do a stress test. I will plan for an ultrasound on the same day to assess for any change in his EF since he has now been on Entresto for approximately 6 months. We discussed in detail also the possibility of considering a cardiopulmonary stress test to objectively quantify his exercise capacity and trended over time. Both the patient and I agree that it is notworth it at this point to pursue a potentially complex EP evaluation. However, should his symptoms of heart failure worsen or his atrial fibrillation become less well controlled in the future, it wouldbe worth considering. Given his increase in renal function and potassium today, we will hold his spironolactone since his EF is greater than 35%. He will get labs checked when he comes back for a stress test and his echo and pending the results of all of that, we will determine whether or not he needs to reinitiate it. As he is hypotensive without symptoms with a blood pressure of 98/65 on recheck in clinic today, we willnot uptitrate his Entresto any further. Plan: Patient Instructions 1. Stop spironolactone 2. Return in 2-4 weeks to for stress test and TTE 3. We will get blood work when you come back for the stress test 4. Pending the results of the stress test and ultrasound, we will consider a formal cardiopulmonary exercise test 5. Continue entresto at current dose of / twice a day We will call him after his stress test and echo results. We will consider whether or not to proceed with a CT PET and or whether or not we need to consider restarting his spironolactone. Follow-up in clinic in 3 months. This clinic visit lasted 45 minutes, of which 40 minutes were spent in direct discussion and counseling with the patient. Lali You MD MPH [facility] Cardiac Transplant Attending 12/07/2019, 12:03 PM documented in this encounter Plan of Treatment Upcoming Encounters Date Type Specialty Care Team Description 06/16/2022 Laboratory Appointment Lab 06/16/2022 Office Visit Cardiology Gianna Lorenzana PA [facility] Cardiology Dept [place], [place] [address] (Wo rk) Scheduled Procedures Name [...] regimen documented as of this encounter Results Nuclear Exercise Stress Cardiology (01/18/2020 12:19 PM EST) Specimen (Source) Anatomical Location Collection Method / Collectio n Time Received Time / Laterality Volume Narrative This result has an attachment that is no t available. Lali Whelan MD CARDIAC SERVICES ORDERABLE S ECHOCARDIOGRAM COMPLETE (01/18/2020 10:27 AM EST) Specimen (Source) Anatomical Location Collection Method / Collectio n Time Received Time / Laterality Volume 01/18/2020 Narrative [facility] - 01/18/2020 11:00 AM ES T Procedure: ?Transthoracic Echocardiogram Patient: ?PAMELA Louis ? (Age): 1955(65y) Med Rec#: ? [id number] ?Sex: ?M ? Site Loc: ? [facility] ?Ht / Wt: ??175.26(cm)/79.3 Pt. Loc: ?Echo Lab ?BSA: ?1.95 Study Date: ?? 01/18/2020 ?Pt. Type: Outpatient Tape: ? Referring: AVELINO ROSARIO Reading: Reji James ([id number]) Video Production Intern: Gricelda Oquendo Diagnosis: *Chronic systolic (congestive) heart [...] in size. Aortic Valve: ? [facility] trans-valvular gradient across the aortic valve is 20.198331242551 mmHg . Acquired from [employer] ?The mean trans-valvular gradient a cross ??the aortic valve is 14.34983137507 mmHg.SVI 37, DOI 52 ?The calculated aortic valve area i s 1.3778595609777 cm2. ?The size of the prosthetic aortic valve is 24mm. ?The prosthetic aortic valve was im planted on 01/19/2014. ?A porcine bio-prosthetic aortic va lve is present. ?The prosthetic aortic valve leafle ts are normal. ?Mild (1+/4+) aortic valve prosthes is regurgitation is present. Mitral Valve: ? There is mitral maribell lar calcification. ?The mean gradient across the gregoria l valve is 3.4023060503738 mmHg. @ 75 bpm. ?The size of the prosthetic mitral valve is 35mm. ?The prosthetic mitral valve was im planted on 01/19/2014. ?A bovine bio-prosthetic mitral michael ve is present. ?The bio-prosthetic mitral valve le aflets are normal. ?There is a trace amount [...] Vmax ?1.26 ? m/sec ? MV deceleration wuur180.05 ? m sec ? LV septal e' [...] ? Pulmonic Valve/Qp:Qs ?Value ?Units (Range) ? NV end-diastolic Vma1.19 ? m/sec ? PA end-diastolic [...] ? Mid-Inferior ?Normal ? Mid-Inferoseptal ?Akinetic ? Woodruff-Septal ? Hypokinetic ? Woodruff-Anterior ? Normal ? Woodruff-Lateral ?Normal ? Woodruff-Inferior ? Normal ? Woodruff-Tip ?Normal ? This report has been electronically sign ed by: _ Reji James M.D. ? 01/18/2020 1 0:37:03 Images reviewed and interpretation verif ied [facility] Cardiac Ultrasound Laboratory Procedure Note Reji James MD - 01/18/2020Formatt ing of this note might be different from the original. Procedure: Transthoracic Echocardiogram Patient: PAMELA HUTTON(Age): [birth year](65y) Med Rec#: [id number] Sex: M Site Loc: [facility] Ht / Wt: 175.26(cm)/79.3 Pt. Loc: Echo Lab BSA: 1.95 Study Date: 01/18/2020 Pt. Type: Outpati ent Tape: Referring: AVELINO ROSARIO Reading: Reji James ([id number]) Video Production Intern: Gricelda Oquendo Diagnosis: *Chronic systolic (congestive) heart [...] ns-valvular gradient across the aortic valve is 20.140051569704 mmHg . Acquired from [employer] The mean trans-valvular gradient across the aortic valve is 14.67844782045 mmHg.SVI 37, DOI 52 The calculated aortic valve area is 1.7 731693375972 cm2. The size of the prosthetic aortic valve is 24mm. The prosthetic aortic valve was implant ed on 01/19/2014. A porcine bio-prosthetic aortic valve i s present. The prosthetic aortic valve leaflets ar e normal. Mild (1+/4+) aortic valve prosthesis re gurgitation is present. Mitral Valve: There is mitral annular ca lcification. The mean gradient across the mitral michael ve is 3.4106616490897 mmHg. @ 75 bpm. The size of [...] MV E-wave Vmax 1.26 m/sec MV deceleration hvjr538.05 msec LV septal e' Vmax 0.05 m/sec [...] 20.64 mmHg Pulmonic Valve/Qp:Qs Value Units (Range) NV end-diastolic Vma1.19 m/sec PA end-diastolic pre8.69 mmHg Measurement Trending Name 01/18/2020 04/02/2019 08/31/201708/30/2017 RAP 3 3 8 RVSP 20.64 22 37 Wall Motion: Segment Name Rest Base-Anteroseptal Hypokinetic Base-Anterior Normal Base-Anterolateral Normal Base-Posterolateral Normal Base-Inferior Hypokinetic Base-Inferoseptal Akinetic Mid-Anteroseptal Hypokinetic Mid-Anterior Normal Mid-Anterolateral Normal Mid-Posterolateral Normal Mid-Inferior Normal Mid-Inferoseptal Akinetic Woodruff-Septal Hypokinetic Woodruff-Anterior Normal Woodruff-Lateral Normal Woodruff-Inferior Normal Woodruff-Tip Normal This report has been electronically sign ed by: _ Reji James M.D. 01/18/2020 10:37:0 3 Images reviewed and interpretation verif iealton [facility] Cardiac Ultrasound Laboratory Lail Whelan MD ECHO ORDERABLES Performing Organization Address City/State/ZIP Code Phon e Number [facility] (ABNORMAL) pro-Brain Natriuretic Peptide (12/07/2019 9:32 AM EST) P athologist Signature ProBNP 539 (H) <=125 pg/mL [facility] Specimen Anatomical Collection Method Collection Time Receive d Time (Source) Location / / Volume Laterality Blood specimen 12/07/2019 9:32 AM 020 9:52 (specimen) EST AM EST Resulting Agency Comment Spec In Lab Lali Whelan MD CHEMISTRY ORDERABLES Performing Organization Address City/State/[place] [address] (ABNORMAL) Basic Metabolic Panel (non-fasting) (12/07/2019 9:32 AM EST) P athologist Signature Glucose Lvl 81 65 - [address] [facility] mg/dL [facility] Comment: Diabetes: >=200 mg/dL plus symp toms BUN 48 (H) 10 - 20 mg/dL [facility] Creatinine 2.39 (H) 0.80 - 1.50 mg/dL [facility] Sodium 137 135 - 145 mmol/L [facility] Potassium 4.5 3.5 - 5.0 mmol/L [facility] Comment: Please note: ??Patients with WBC >100,00 0 may have falsely elevated Potassium levels. ??For accurate Potassium quantif ication in these patients send serum separator tube (gold top) for subsequent determinations. ??Contact the Clinical Chemistry Laboratory if there are any qu estions. Chloride 99 98 - 107 mmol/L [facility] CO2 24 22 - 31 mmol/L [facility] Anion Gap 14 5 - 15 mmol/L [facility] Calcium 10.1 8.5 - 10.5 mg/dL [facility] Estimated GFR 27 (L) >=60 mL/min/1.73 m?? [facility] Comment: The eGFR was calculated using the CKD-EP I equation. As with all creatinine based estimates of kidney function, eGFR values calculated with the CKD-EPI equation are not accurate in patients wi th acute kidney failure, extremes of body mass or the acutely ill. [email or web address]nkf eGFR 32 (L) >=60 mL/min/1.73 m?? [facility] Comment: The eGFR was calculated using the CKD-EP I equation. As with all creatinine based estimates of kidney function, eGFR values calculated with the CKD-EPI equation are not accurate in patients wi th acute kidney failure, extremes of body mass or the acutely ill. [email or web address]kf Specimen Anatomical Collection Method Collection Time Receive d Time (Source) Location / / Volume Laterality Blood specimen 12/07/2019 9:32 AM 020 9:52 (specimen) EST AM EST Resulting Agency Comment Spec In Lab Lali Whelan MD CHEMISTRY ORDERABLES Performing Organization Address City/State/[place] [address] documented in this encounter Visit Diagnoses Diagnosis Chronic systolic heart failure Chronic systolic heart failure documented in this encounter Care Teams Electronics Computer Mechanic Relationship Specialty Start Date End Date Pricila Geller APRN PCP - General Family Medicine 11/24/18 [address] [place] [address] documented as of this encounter
--- OUTSIDE RECORDS SUMMARY | 2022-05-20 07:39 | XMS_ITS | Encounter Summary ---
:1955 Author Organization [facility] [place] [address] Care Team Providers Name Role Phone BenjamínPricila marcus JOELLE Primary Care Provider Reason for Visit Diagnostic Test (Routine) - Closed Specialty Diagnoses / Procedures Referred By Contact Refer red To Contact Radiology Diagnoses Chronic systolic heart failure Lali Vu [facility] Rad Nuclear Med Procedures NM Pharmacologic Stress and Rest Myocardial Perfusion NM Exercise Stress and Rest Myocardial [place] [address] [place] [address] Fax: Referral ID Status Reason Start Date Expiration Date Visits V isits Requested Authorized [id number] Closed Specialty 12/07/2019 06/06/2021 1 1 Service Requested Encounter Details Date Type Department Care Team Description 01/18/2020 Hospital Encounter Nuclear Medicine at Magali Vu [facility] Garland MD [facility] [place] [address] [place] [address] [phone] (Wo rk) Social History Tobacco Use Types [...] Visit Cardiology Gianna Lorenzana PA [facility] er Cardiology Dept [place], [place] [address] (Wo rk) Scheduled Procedures Name [...] report, please contact e number below. ? Electronically signed by: Missy Jiang Counts [facility] [address] [facility] ([phone]), at 01/18/2020 3:14 PM Impressions 01/18/2020 3:14 PM EST Mild ischemia in the distal inferolateral wall. No scar. Thank you for letting us participate in the care of this patient. For questions regarding this report, please contact e number below. ? Electronically signed by: Missy Jiang [facility] [address] [facility] ([phone]), at 01/18/2020 3:14 PM Narrative 01/18/2020 3:14 PM EST EXAMINATION: NM [...] this report, please contact e number below. Electronically signed by: Missy Jiang Counts [facility] [address] [facility] ([phone]), at 01/18/2020 3:14 PM Lali Whelan MD IM NM ORDERABLES documented in this encounter Visit Diagnoses Not on filedocumented in this encounter Care Teams Plasterer Helper Relationship Specialty Start Date End Date Pricila Geller APRN PCP - General Family Medicine 11/24/18 [place] [address] documented as of this encounter
--- OUTSIDE RECORDS SUMMARY | 2022-05-20 07:39 | XMS_ITS | Encounter Summary ---
:1955 Author Organization [facility] [place] [address] Care Team Providers Name Role Phone Pricila Geller APRN Primary Care Provider Reason for Visit Reason Onset Date Comments Results 05/31/2019 Encounter Details Date Type Department Care Team Description 05/31/2019 Telephone [place] [facility] Beltran Conrad MD Results [facility] [place] [phone] ORTHOPAEDIC SURGERY [phone] [place] [id number] (Wo rk) Social History Tobacco Use Types [...] this encounter Miscellaneous Notes Telephone Encounter - Elvi Lopez - 06/01/2019 3:56 PM EDT Patient scheduled Telephone Encounter - Elvi Lopez - 06/01/2019 3:13 PM EDT 1.) Does patient have any medication allergies? 2.) Patient???s approximate weight in lbs. 160 lbs 3.) Does the patient have any contrast/dye allergies? No 4.) Does the patient have a taxi cab driver for this procedure? Yes 5.) Has patient had any procedures in the past 3 months? No 6.) Is this patient ambulatory? Yes 7.) Is the patient currently taking any blood thinner medications apixaban (ELIQUIS) 2.5 mg Tablet 8.) Has this patient has replacement surgery of the area we are performing the procedure on? Yes ZAKI 2010 Telephone Encounter - Saeid Yusuf RN - 06/01/2019 11:27 AM EDT Right hip aspiration ordered. Please call patient for an appointment. Quique Breaux Telephone Encounter - Jalyn Galan RMA - 05/31/2019 11:19 AM EDT Cong called for the results of his labs that were done in April. He feels that based on the resultshe needs to know what the next steps are. I let him know that I would send a message to Dr Conrad and ask that he call him at [phone]. documented in this encounter Plan of Treatment Upcoming Encounters Date Type Specialty Care Team Description 06/16/2022 Laboratory Appointment Lab 06/16/2022 Office Visit Cardiology Gianna Lorenzana PA [facility] Cardiology Dept [place], [place] [address] (Wo rk) Scheduled Procedures Name Priority Associated Diagnoses Date/Time EGD, UPPER GI ENDOSCOPY Chronic cough Heartburn RUQ pain Fecal urgency Dysphagia, unspecifi ed type History of hepatitis C COLONOSCOPY, DIAGNOSTIC Chronic cough Heartburn RUQ pain Fecal urgency Dysphagia, unspecifi ed type History of hepatitis C documented as of this encounter Visit Diagnoses Not on filedocumented in this encounter Care Teams Setter Helper Relationship Specialty Start Date End Date Pricila Geller APRN PCP - General Family Medicine 11/24/18 [place] [address] documented as of this encounter
--- OUTSIDE RECORDS SUMMARY | 2022-05-20 07:39 | XMS_ITS | Encounter Summary ---
:1955 Author Organization [facility] [place] [address] Care Team Providers Name Role Phone Pricila Geller APRN Primary Care Provider Encounter Details Date Type Department Care Team Description 06/19/2019 [place] [facility] [place] Conrad, History of total [address] [place] [address] Dr RUELAS hip arthroplasty, [facility] right [phone] ORTHOPAEDIC SURGERY [place], [place] [address] Social History Tobacco Use Types [...] on file documented as of this encounter Discharge Instructions Patient InstructionsJose Sawant - 06/19/2019 2:26 PM EDT Post Aspiration Patient Instructions You received an injection by Latonia Caraballo in the diagnostic section of radiology. Procedure: Right Hip Aspiration In the days following the aspiration: ??? Low intensity movement and exercise of the affected joint. ??? Avoid movements that worsen pain. During the first 48 hours following the aspiration you may experience mild discomfort at the aspiration site. If you experience pain or discomfort in the affected area, do the following: ??? Apply cold compress to the affected area. ??? If allowed by your physician, take an anti-inflammatory medication such as ibuprofen (example: Advil), Acetaminophen 9example: Tylenol) or Aspirin. IMPORTANT The risk of infection exists whenever the skin is punctured. The risk can be minimized by keeping the aspiration site clean. However, be aware of the following signs of an infection: ??? Redness and swelling at the aspiration site. ??? Increased pain. ??? Fever and/or chills. ??? Decreased range of motion in the joint near the aspiration site. If you experience any of the signs of infection listed above, telephone the diagnostic section of radiology at [phone]. documented in this encounter Medications at Time of Discharge Medication Sig Dispensed Refills Start Date End Date aspirin 81 mg Tablet, Take 81 mg by 30 tablet 3 09/08/2017 Chewable mouth daily. levoFLOXacin (LEVAQUIN) 500 500 mg daily. 0 06/1412/07/2019 mg Tablet losartan (COZAAR) 50 mg Take 50 mg by 0 9 12/07/2019 Tablet mouth daily. metoprolol (LOPRESSOR) 100 Take 175 mg by 0 02/08/2020 mg Tablet mouth every morning. metoprolol succinate Take 75 mg by 0 0 02/08/2020 (TOPROL-XL) 50 mg Tablet mouth nightly. Sustained Release 24 hr sacubitril-valsartan Take 1 tablet by 60 tablet 3 9 09/21/2019 (ENTRESTO) 24-26 mg Tablet mouth 2 times tablet daily. spironolactone (ALDACTONE) Take 25 mg by 0 201802/08/2020 25 mg Tablet mouth daily. apixaban (ELIQUIS) 2.5 mg Take 1 tablet by 0 06/01/201908/28/2019 TabletIndications: Atrial mouth 2 times fibrillation, unspecified daily. type, Cerebrovascular accident (CVA) due to embolism of right middle cerebral artery torsemide (DEMADEX) 20 mg Take 2 tablets by 30 tablet 3 02/15/2020 Tablet mouth daily. documented as of this encounter Plan of Treatment Upcoming Encounters Date Type Specialty Care Team Description 06/16/2022 Laboratory Appointment Lab 06/16/2022 Office Visit Cardiology Gianna Lorenzana PA [facility] Cardiology Dept [place], [place] [address] (Wo rk) Scheduled Procedures Name [...] Procedure Name Priority Date/Time Associated Comments Diagnosis XR JOINT ASPIRATION Routine 06/19/2019 2:47 PM History of tota l Results for this - LARGE JOINT RIGHT EDT hip arthroplasty, pro cedure are in right the results section. PROSTHETIC JOINT STAT 06/19/2019 2:41 PM History of total CULTURE, EXTENDED EDT hip arthroplasty, HOLD, AEROBIC & right ANAEROBIC JOINT CULTURE STAT 06/19/2019 2:41 PM History of total Resu lts for this EDT hip arthroplasty, procedure are in right the results section. ANAEROBIC CULTURE STAT 06/19/2019 2:41 PM History of total Results for this EDT hip arthroplasty, procedure are in right the results section. CRYSTAL EXAM BODY STAT 06/19/2019 2:41 PM History of total Results for this FLUID EDT hip arthroplasty, procedure are in right the results section. FUNGUS CULTURE STAT 06/19/2019 2:41 PM History of total Res ults for this EDT hip arthroplasty, procedure are in right the results section. CELL COUNT BODY STAT 06/19/2019 2:41 PM History of total Re sults for this FLUID EDT hip arthroplasty, procedure are in right the results section. documented in this encounter Results XR Fluoro Guided Joint Aspiration Large Right (06/19/2019 2:47 PM EDT) Anatomical Region Laterality Modality Right Radio Fluoroscopy Specimen (Source) Anatomical Location Collection Method / Collectio n Time Received Time / Laterality Volume Impressions 06/20/2019 12:43 PM EDT Uneventful right hip joint aspiration and lidocaine injection. Pain level pre aspiration/injection 5/1. Post lodocaine injection. 0/10. Resident/Fellow: None Attending: There was no attending presen t for this procedure Procedure performed by APPLE Pena RN Thank you for letting us participate in the care of this patient. For questions regarding this report, please contact e number below. ? Electronically signed by: Latonia ward, [facility] ([phone]), at 06/20/2019 12:43 PM Narrative 06/20/2019 12:43 PM EDT HISTORY: Pain, R/O infection of right hip joint space with ZAKI. RIGHT HIP JOINT ASPIRATION WITH LIDOCAIN E INJECTION UNDER FLUOROSCOPY TECHNIQUE: After an extensive conversation with the patient regarding risks and benefits, oral and written consent were obtained.? A pre- procedural time-out was performed, including review of the patie nt's relevant electronic medical record and allergies, as per [facility] [place] A pre- procedural time-out was performed as per [facility] [place]. The patient was placed supine on the flu oroscopic table. ??The skin overlying the right anterior hip was prepped and drape d in the usual aseptic manner. 1% Lidocaine was used to achieve local anes thesia. Under fluoroscopic guidance, 20 gauge 3.5 inch spinal needle was advance d into the joint space. ??Small amount of air was injected to document needle plac ement. Spontaneous fluid returned. Then 5 ml Lidocaine 1% instilled into right h ip joint. All needles removed at end of procedure. FINDINGS: 1. ??Small amount of injected air in the right hip joint space. 2. ??3 ml of serosanguinous fluid aspira debbie, sent for culture, sensitivity, gram stain, cell count and Synovasure testing . MEDICATIONS: Lidocaine 1% - <5 ml, for subcutaneous a nesthesia Lidocaine 1%- 5 ml, for joint anesthesia Fluoroscopy time: 0.08 minutes COMPLICATIONS: None immediate. POST-PROCEDURE CARE: Instructions on mon itor of infection, management of post procedure pain were reviewed with hannah asif Procedure Note Latonia Caraballo, OCCUPATIONAL NURSE - 06/20/2019Forma tting of this note might be different from the original. HISTORY: Pain, R/O infection of right hi p joint space with ZAKI. RIGHT HIP JOINT ASPIRATION WITH LIDOCAIN E INJECTION UNDER FLUOROSCOPY TECHNIQUE: After an extensive conversation with the patient regarding risks and benefits, oral and written consent were obtained.? A pre- procedural time-out was performed, [facility] and allergies, as per [facility] [place]. A pre- procedural time-out was performed as per [facility] [place]. The patient was placed supine on the flu oroscopic table. The skin overlying the right anterior hip was prepped and drape d in the usual aseptic manner. 1% Lidocaine was used to achieve local anes thesia. Under fluoroscopic guidance, 20 gauge 3.5 inch spinal needle was advance d into the joint space. Small amount of air was injected to document needle plac ement. Spontaneous fluid returned. Then 5 ml Lidocaine 1% instilled into right h ip joint. All needles removed at end of procedure. FINDINGS: 1. Small amount of injected air in the r ight hip joint space. 2. 3 ml of serosanguinous fluid aspirate d, sent for culture, sensitivity, gram stain, cell count and Synovasure testing . MEDICATIONS: Lidocaine 1% - <5 ml, for subcutaneous a nesthesia Lidocaine 1%- 5 ml, for joint anesthesia Fluoroscopy time: 0.08 minutes COMPLICATIONS: None immediate. POST-PROCEDURE CARE: Instructions on mon itor of infection, management of post procedure pain were reviewed with hannah baker. IMPRESSION Uneventful right hip joint aspiration an d lidocaine injection. Pain level pre aspiration/injection 5/1. Post lodocaine injection. 0/10. Resident/Fellow: None Attending: There was no attending presen t for this procedure Procedure performed by APPLE Pena RN Thank you for letting us participate in the care of this patient. For questions regarding this report, please contact th e number below. Beltran Conrad MD IMG FLUORO ORDERABLES Anaerobic Culture (06/19/2019 2:41 PM EDT) [facility] Method Time Signature Anaerobic No anaerobic [facility] Culture organisms [facility] LABORATORY Specimen Anatomical Collection Method Collection Time Receive d Time (Source) Location / / Volume Laterality Joint fluid RIGHT HIP REGION 06/19/2019 2:41 PM 06/19 3:18 specimen STRUCTURE / EDT PM EDT (specimen) Unknown Resulting Agency Comment Spec In Lab Beltran Conrad MD MICROBIOLOGY - GENERAL ORDER YUNIEL Performing Organization Address City/[facility]/ZIP [place] [address] Joint Culture (06/19/2019 2:41 PM EDT) Component Value Ref Test Analysis Performed At [facility] Range Method Time Signature Joint Culture No growth at 14 CHANDAN days. [facility] Gram Stain Cytocentrifuge Gram Stain performed CHANDAN Hernandez seen COLT No microorganisms seen. [facility]OR[facility] Specimen Anatomical Collection Method Collection Time Receive d Time (Source) Location / / Volume Laterality Joint fluid RIGHT HIP REGION 06/19/2019 2:41 PM 06/19 3:18 specimen STRUCTURE / EDT PM EDT (specimen) Unknown Resulting Agency Comment Spec In Lab Beltran Conrad MD MICROBIOLOGY - GENERAL ORDER YUNIEL Performing Organization Address City/[facility]/ZIP Code Phon e Number [place] [phone] Fungus culture Joint (06/19/2019 2:41 PM EDT) [facility] Method Time Signature Fungus No Fungus [facility] isolated [facility]OR[facility]ORY Specimen Anatomical Collection Method Collection Time Receive d Time (Source) Location / / Volume Laterality Joint sample 06/19/2019 2:41 PM 9 3:18 (specimen) EDT PM EDT Resulting Agency Comment Spec In Lab Beltran Conrad MD MICROBIOLOGY - GENERAL ORDER YUNIEL Performing Organization Address City/[facility]/ZIP [place] [address] Cell Count Body Fluid Hip Joint Fluid (06/19/2019 2:41 PM EDT) athologist Signature Spec Type BF Hip [facility]OR[facility] Color BF [place] [facility] Appearance BF Cloudy [facility] WBC BF Ct Clotted [facility] Comment: called by ML to Saeid Yusuf Rn Guideline listed below apply to all body fluids. Differentials on BAL specimens are perfo rmed by the Cytology lab section. When Body Fluid WBC count is greater zaki n Zero, a smear is made and scanned. All scan information is correlated with numeric results prior to being released to patients chart. Polymorph % Clotted % [facility] LABOR[facility] Comment: Polymorphonuclear cell percent and absol [place] values may contain Neutrophils, Eosinophils, and Basophils. Body fluid s mear will be scanned manually for concordance. Mononuc % Clotted % [facility] Comment: Mononuclear cell percent and absolute va lues may contain Lymphocytes and Monocytes. Body fluid smear will be scan kimberlyn manually for concordance. Polymorph BF ABS Clotted /mcl [facility] Comment: Polymorphonuclear cell percent and absol [place] values may contain Neutrophils, Eosinophils, and Basophils. Body fluid s mear will be scanned manually for concordance. Mononuc ABS Clotted /mcl [facility] Comment: Mononuclear cell percent and absolute va lues may contain Lymphocytes and Monocytes. Body fluid smear will be scan kimberlyn manually for concordance. Specimen Anatomical Collection Method Collection Time Receive d Time (Source) Location / / Volume Laterality Hip joint 06/19/2019 2:41 PM 9 2:59 synovial fluid EDT PM EDT (specimen) Resulting Agency Comment Spec In Lab Beltran Conrad MD BODY FLUIDS AND STOOLS ORDER YUNIEL Performing Organization Address City/State/Z[place] [address] Crystal Exam Body Fluid Hip Joint Fluid (06/19/2019 2:41 PM EDT) [facility] Method Time Signature Crystal BF Hip [facility] LABORATORY Crystal BF None Seen [facility] LABORATORY Specimen Anatomical Collection Method Collection Time Receive d Time (Source) Location / / Volume Laterality Hip joint 06/19/2019 2:41 PM 9 2:59 synovial fluid EDT PM EDT (specimen) Resulting Agency Comment Spec In Lab Beltran Conrad MD BODY FLUIDS AND STOOLS ORDER YUNIEL Performing Organization Address City/State/[place] [address] documented in this encounter Visit Diagnoses Diagnosis History of total hip arthroplasty, right documented in this encounter Administered Medications Inactive Administered Medications - up to 3 most recent administrations Medication Order MAR Action Action Date Dose Rate Site lidocaine (XYLOCAINE) 10 mg/mL (1 Given 06/19/2019 3:15 PM EDT 5 0 mg %) injection 50 mg 50 mg (5 mL), Intra-articular, ONCE, 1 dose, On Tue06/19/19 at 1515, Routine documented in this encounter Care Teams Makeup Sales Consultant Relationship Specialty Start Date End Date Pricila Geller APRN PCP - General Family Medicine 11/24/18 [address] [place] [address] documented as of this encounter
--- OUTSIDE RECORDS SUMMARY | 2022-05-20 07:39 | XMS_ITS | Encounter Summary ---
:1955 Author Organization [facility] [place] [address] Care Team Providers Name Role Phone Pricila Geller APRN Primary Care Provider Reason for Visit Diagnostic Test (Routine) - Closed Specialty Diagnoses / Procedures Referred By Contact Refer red To Contact Radiology Diagnoses Chronic systolic heart failure Lali Vu [facility] Rad Nuclear Med Procedures NM Pharmacologic Stress CT Component NM Exercise Stress [place] [address] [place] [address] Fax: Referral ID Status Reason Start Date Expiration Date Visits V isits Requested Authorized [id number] Closed Specialty 12/07/2019 06/06/2021 1 1 Service Requested Encounter Details Date Type Department Care Team Description 01/18/2020 Hospital Encounter Nuclear [facility] [address] [facility] [place], [place] [address] [phone] Social History Tobacco Use Types Packs/Day Years [...] Cardiology Gianna Lorenzana PA [facility] Cardiology Dept [place], [place] [address] (Wo rk) Scheduled Procedures Name [...] Associated Comments Diagnosis NM PHARMACOLOGIC Routine 01/18/2020 12:45 Chronic systolic Res ults for this STRESS CT COMPONENT PM EST heart failure procedu re are in the results section. documented in this encounter Results NM Pharmacologic Stress CT Component (01/18/2020 12:45 PM EST) Anatomical Region Laterality Modality Nuclear Medicine Specimen (Source) Anatomical Location Collection Method / Collectio n Time Received Time / Laterality Volume Narrative 01/18/2020 3:26 PM EST EXAMINATION: NM PHARMACOLOGIC STRESS CT COMPONENT CLINICAL HISTORY: Study performed for at tenuation correction of the myocardial perfusion scan. TECHNIQUE: A limited field of view, non- contrast, non-breath hold, low dose CT scan of the region surrounding the myoca rdium was performed for the purpose of attenuation correction of the myocardial perfusion scan. COMPARISON: None INCIDENTAL CT FINDINGS: Marked dilatation of the left atrium. Co ronary artery and aortic calcifications. Cardiac surgery with prosthetic aortic m itral valves. Sternotomy wires are present. Right middle lobe nodule is unc hanged. Thinning of the renal cortices bilaterally. Hiatal hernia. Thank you for letting us participate in the care of this patient. For questions regarding this report, please contact e number below. ? Electronically signed by: Missy Jiang [facility] ([phone]), at 01/18/2020 3:26 PM Procedure Note Marcio Arrington MD - 01/18/2020 EXAMINATION: NM PHARMACOLOGIC STRESS CT COMPONENT CLINICAL HISTORY: Study performed for at tenuation correction of the myocardial perfusion scan. TECHNIQUE: A limited field of view, non- contrast, non-breath hold, low dose CT scan of the region surrounding the myoca rdium was performed for the purpose of attenuation correction of the myocardial perfusion scan. COMPARISON: None INCIDENTAL CT FINDINGS: Marked dilatation of the left atrium. Co ronary artery and aortic calcifications. Cardiac surgery with prosthetic aortic m itral valves. Sternotomy wires are present. Right middle lobe nodule is unc hanged. Thinning of the renal cortices bilaterally. Hiatal hernia. Thank you for letting us participate in the care of this patient. For questions regarding this report, please contact e number below. Electronically signed by: Missy Jiang [facility] ([phone]), at 01/18/2020 3:26 PM Lali Whelan MD [facility] [place] ORDERABLES documented in this encounter Visit Diagnoses Diagnosis Chronic systolic heart failure documented in this encounter Care Teams Shear Helper Relationship Specialty Start Date End Date Pricila Geller APRN PCP - General Family Medicine 11/24/18 [place] [address] documented as of this encounter
--- OUTSIDE RECORDS SUMMARY | 2022-05-20 07:39 | XMS_ITS | Encounter Summary ---
:1955 Author Organization [facility] [place] [address] Care Team Providers Name Role Phone DuyenPricila JOELLE Primary Care Provider Reason for Referral Consultation (Routine) - Closed Specialty Diagnoses / Procedures Referred By Contact Refer red To Contact Cardiology Diagnoses Chronic systolic heart failure Lali Vu [facility] [place] [address] [place] [address] Referral ID Status Reason Start Date Expiration Date Visits V isits Requested Authorized [id number] Closed Consult, 06/15/2019 06/14/2020 1 1 Test & Treat Encounter Details Date Type Department Care Team Description 06/15/2019 Office Visit Cardiology at [facility] Avelino Whelan, Chronic systolic [facility] Lali [place] [address] [place], [place] [id number] (Wo rk) Social History Tobacco Use Types [...] Sign Reading Time Taken Comments Blood Pressure 125/81 06/15/2019 10:12 AM EDT Pulse 76 06/15/2019 10:12 AM EDT Temperature - - Respiratory Rate - - Oxygen Saturation 100% 06/15/2019 10:12 AM EDT Inhaled Oxygen Concentration - - Weight 75.3 kg (166 lb) 06/15/2019 10:12 AM EDT Height 175.3 cm (5' 9) 06/15/2019 10:12 AM EDT Body Mass Index 24.51 06/15/2019 10:12 AM EDT documented in this encounter Patient Instructions Patient InstructionsGilstraLali Michel MD - 06/15/2019 10:20 AM EDT 1. Referral to electrophysiology for aflutter ablation consideration 2. We will run Entresto through your pharmacy and call you with the cost 3. Check lipids on Tuesday 4. Keep me in the loop about your hip issues documented in this encounter Progress Notes Lali Vu MD - 06/15/2019 10:20 AM EDT [facility] Note Name: Cong Khan Date: 06/15/2019 Chief Complaint: HFrEF, nonishcemic/valvular History of Present Illness Cong Khan is a 64 y.o. 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 By way of history, I last saw him in March 2019. At that visit, he was here to establish care. We placed a ZIO patch. We continued his metoprolol, losartan and spironolactone. We continued his 20 mg of torsemide daily. We attempted to obtain an apixaban level as well. The apixaban level was notably high at 500 ng/mL. We decreased the dose of apixaban and a follow-up level was 151 ng/mL. His most recent creatinine was 1.9 up from 1.5. Since I last saw him, he is doing well from a cardiovascular perspective. He is interested in starting biking. He does note that he gets out of breath perhaps a bit more quickly than prior. He has seen hepatology and has been treated for hepatitis C with resolution. He has mild fatty liverdisease but nothing significant. He has stopped his statin because he read about a number of side effects. 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 Review of Systems All other 12 point review of systems negative except as noted above. Past Medical History Patient Active Problem List Diagnosis ??? Acute systolic congestive heart failure Prior echo from [facility] 10/2015: EF 40-45%, mean aortic valve gradient 22mmHg [place] echo Aug 2017: EF 20-25%, DVI 0.35, ascending aorta 4.2cm, aortic arch 5.3cm Current echo [facility] 08/31/17:EF 31%, septum [...] Valvular disease - mitral valve prolapse, repair ([place], [place]) 11/07/09: P2 resection, sliding annuloplasty, placement of #38 Future band. - [facility] 12/01/10 : mitral valve replacement with a #33 EPIC IC procedure, tricuspid valve repair with a #32 MC3 ring, MAZE - AVR 2013. (NASRA Soto): no records available. ??? Aneurysm of aortic arch Noted on echo at [facility] 5.3cm (08/30/2017) ??? Hypertension ??? H/O [...] Outpatient Medications Marked as Taking for the 06/15/19 encounter (Office Visit) with Lali Vu MD Medication Sig Dispense Refill ??? losartan (COZAAR) [...] Comment: Former heavy daily user quit in 201306/15/2019 Illicits: Social History Substance and Sexual Activity Drug Use No Comment: Former cocaine user FHx: Family History Problem Relation Age of Onset ??? Emphysema Mother ??? Hypertension Mother ??? Alcohol Abuse Father ??? Aneurysm Father ??? Hypertension Father ??? Substance Abuse Brother Physical Exam Vitals: 06/15/19 1012 BP: 125/81 Pulse: 76 SpO2: 100% Weight: 75.3 kg (166 lb) Height: 175.3 cm (5' 9) Weight: Last weight 166 pounds, 166 pounds today General: NAD Neck: JVP less than 10 cm of water Cardiac: regular rate and rhythm without murmurs rubs or gallops Lungs: CTAB Abdomen: Soft NT/ND Extremities: WWP w/ no significant lower extremity edema Relevant Labs Labs today are notable for potassium of 4.8,Creatinine of 1.7 which is down a bit from 1.9 a couple of weeks ago. Relevant CardiacStudies LETYO Patch from March 2019 with a predominant [...] a past medical history of valvular CMP who presents to the advanced heart disease clinic for follow up. Overall, he is doing extremely well. His ZIO Patch revealed that he is in almost permanent atrial flutter. We will refer him to EP for consideration of an ablation. His ejection fraction is relatively stable in the high 30s. His blood pressure is such that we will run Entresto through his pharmacy coverage to see whether or not he can get it at a reasonable pagan.If so, I would like to transition him to Entresto, we may need to back down his dose of spironolactone given his potassium today is 4.8. I am okay with him stopping the statin given that he does not have significant underlying coronary disease. We will check lipids next week. Plan: Patient Instructions 1. Referral to electrophysiology for aflutter ablation consideration 2. We will run Entresto through your pharmacy and call you with the cost 3. Check lipids on Tuesday 4. Keep me in the loop about your hip issues This clinic visit lasted 45 minutes, of which 40 minutes were spent in direct discussion and counseling with the patient. Lali You MD MPH [facility] Attending 06/15/2019, 10:51 AM documented in this encounter Plan of Treatment Upcoming Encounters Date Type Specialty Care Team Description 06/16/2022 Laboratory Appointment Lab 06/16/2022 Office Visit Cardiology Gianna Lorenzana PA [facility] Cardiology Dept [place], [place] [address] (Wo rk) Scheduled Procedures Name Priority Associated Diagnoses Date/Time EGD, UPPER GI ENDOSCOPY Chronic cough Heartburn RUQ pain Fecal urgency Dysphagia, unspecifi ed type History of hepatitis C COLONOSCOPY, DIAGNOSTIC Chronic cough Heartburn RUQ pain Fecal urgency Dysphagia, unspecifi ed type History of hepatitis C Scheduled Referrals Name Type Priority Associated Order Schedule Diagnoses Referral to Cardiac Outpatient Routine Chronic systolic Orde red: Electrophysiology Referral heart failure 9 documented as of this encounter Goals Goal Patient Goal Associated Recent Patient-Stated? Author Type Problems Progress DH Home Medication Patient No Daniela ward, Compliance and Facing Tad A, Understanding Action Plan [facility] Note: Formatting of this note might be d ifferent from the original. Maintain 100% adherence to Entresto twic e daily regimen documented as of this encounter Results Lipid Panel (06/19/2019 3:06 PM EDT) athologist Signature Chol, Total 153 mg/dL [facility] Comment: Lower Risk: <200 mg/dL Average Risk: 200-239 mg/dL Higher Risk: >mg=675 mg/dL Triglycerides 74 mg/dL [facility] Comment: Average Risk/Lower Risk: <150 mg/dL Borderline High Risk: 150-199 mg/dL High Risk: 200-499 mg/dL Very High Risk: >wu=233 mg/dL HDL 56 mg/dL [facility] Comment: Males: ?? Higher Risk: <40 mg/dL Females: ?? HIgher Risk: <50 mg/dL LDL Cholesterol 82 mg/dL [facility] Comment: Lowest Risk: <100 mg/dL Lower Risk: 100-129 mg/dL Borderline High Risk: 130-159 mg/dL High Risk: 160-189 mg/dL Very High Risk: >hm=427 mg/dL Chol/HDL Ratio 2.7 ratio [facility] Lipid Interpretation See Note [facility] Comment: Lipid management should be guided by a p atient? s ASCVD risk, goals and preferences. ACC/AHA Guidelines recommend high intens ity statin if clinical ASCVD or LDL greater than or equal to 190 mg/dL. http://Touchbase.com/GVU-ROD-Kgtztwwnq Adults aged 40-75 with LDL 70-189 mg/dL should have their 10 year ASCVD risk estimated with the ACC/AHA ASCVD risk es timator http://tools.acc.org/QYHEF-Wjle-Jpdwwyqk r/ Statin should be discussed if risk [...] Location / / Volume Laterality Blood specimen 06/19/2019 3:06 PM 019 3:15 (specimen) EDT PM EDT Resulting Agency Comment Spec In Lab Lali Whelan MD CHEMISTRY ORDERABLES Performing Organization Address City/[facility]/[place] [address] (ABNORMAL) pro-Brain Natriuretic Peptide (06/15/2019 9:46 AM EDT) P athologist Signature ProBNP 950 (H) <=125 pg/mL [facility] Specimen Anatomical Collection Method Collection Time Receive d Time (Source) Location / / Volume Laterality Blood specimen 06/15/2019 9:46 AM 019 (specimen) EDT 10:07 AM EDT Resulting Agency Comment Spec In Lab Lali Whelan MD CHEMISTRY ORDERABLES Performing Organization Address City/[facility]/[place] [address] (ABNORMAL) Basic Metabolic Panel (non-fasting) (06/15/2019 9:46 AM EDT) P athologist Signature Glucose Lvl 97 65 - 199 [facility] mg/dL [facility] Comment: Diabetes: >=200 mg/dL plus symp toms BUN 26 (H) 10 - 20 mg/dL [facility] Creatinine 1.73 (H) 0.80 - 1.50 mg/dL [facility] Sodium 132 (L) 135 - 145 mmol/L [facility] Potassium 4.8 3.5 - 5.0 mmol/L [facility] Comment: Please note: ??Patients with WBC >100,00 0 may have falsely elevated Potassium levels. ??For accurate Potassium quantif ication in these patients send serum separator tube (gold top) for subsequent determinations. ??Contact the Clinical Chemistry Laboratory if there are any qu estions. Chloride 97 (L) 98 - 107 mmol/L [facility] CO2 25 22 - 31 mmol/L [facility] Anion Gap 10 5 - 15 mmol/L [facility] Calcium 9.6 8.5 - 10.5 mg/dL [facility] Estimated GFR 40 (L) >=60 mL/min/1.73 m?? [facility] Comment: The eGFR was calculated using the CKD-EP I equation. As with all creatinine based estimates of kidney function, eGFR values calculated with the CKD-EPI equation are not accurate in patients wi th acute kidney failure, extremes of body mass or the acutely ill. [email or web address] eGFR 47 (L) >=60 mL/min/1.73 m?? [facility] Comment: The eGFR was calculated using the CKD-EP I equation. As with all creatinine based estimates of kidney function, eGFR values calculated with the CKD-EPI equation are not accurate in patients wi th acute kidney failure, extremes of body mass or the acutely ill. [email or web address] Specimen Anatomical Collection Method Collection Time Receive d Time (Source) Location / / Volume Laterality Blood specimen 06/15/2019 9:46 AM 019 (specimen) EDT 10:07 AM EDT Resulting Agency Comment Spec In Lab Lali hWelan MD CHEMISTRY ORDERABLES Performing Organization Address City/State/ZIP Code Phon e Number [place] [phone] documented in this encounter Visit Diagnoses Diagnosis Chronic systolic heart failure documented in this encounter Care Teams Guide Visitor Relationship Specialty Start Date End Date Pricila Geller APRN PCP - General Family Medicine 11/24/18 [address] [place] [address] documented as of this encounter
--- OUTSIDE RECORDS SUMMARY | 2022-05-20 07:39 | XMS_ITS | Encounter Summary ---
:1955 [place] [address] Care Team Providers Name Role Phone Pricila Geller APRN Primary Care Provider Reason for Visit Reason Comments Medication Management Medication Refill Encounter Details Date Type Department Care Team Description 01/07/2020 Specialty Pharmacy Pharmacy at [facility] Jason Vazquez RPH Managem ent; [place] [address] Social History Tobacco Use Types Packs/Day Years [...] encounter Progress Notes Jason Larios RPH - 01/07/2020 12:48 PM EST Clinical Management Plan: Refill Specialty Pharmacy Consultation; Jason Larios RPH Comprehensive Medication Management (CMM) Cong Missy Willinghamey Mr. Cong Khan is a 64 y.o. [...] Title Type of Medication Management: targeted medication review Referred By: provider Recipient: beneficiary Provider: plan sponsor pharmac[place] [facility] [place] Method of Contact: by telephone Cognitive Ability: good Cognitive Impairment Status Verified this Year: no Allergies and Drug intolerance: No Known Allergies Medication Reconciliation Discrepancies (compared to [facility] med list) -None New medications: no New medical conditions: no [...] problems identified Adherence tools used: directed education Are you experiencing any side effects from your medications? no Pt understands no changes to current drug regimen were made at the appointment and that [facility] is providing recommendations (summary located at top of note) for provider review and follow up. Jason Larios [facility] 01/07/20 12:52 PM documented in this encounter Plan of Treatment Upcoming Encounters Date Type Specialty Care Team Description 06/16/2022 Laboratory Appointment Lab 06/16/2022 Office Visit Cardiology Gianna Lorenzana PA [facility] Cardiology Dept [place], [place] [address] (Wo rk) Scheduled Procedures Name [...] on filedocumented in this encounter Care Teams Seam Taper Machine Relationship Specialty Start Date End Date Pricila Geller APRN PCP - General Family Medicine 11/24/18 [address] [place] [address] documented as of this encounter
--- OUTSIDE RECORDS SUMMARY | 2022-05-20 07:39 | XMS_ITS | Encounter Summary ---
:1955 Author Organization [facility] [place] [address] Care Team Providers Name Role Phone DuyenPricila JOELLE Primary Care Provider Reason for Visit Consultation (Routine) - Closed Specialty Diagnoses / Procedures Referred By Contact Refer red To Contact Cardiology Diagnoses Chronic systolic heart failure Lali Vu [facility] 4a G, [facility] [place] [address] [place] [address] Referral ID Status Reason Start Date Expiration Date Visits V isits Requested Authorized [id number] Closed Consult, 06/15/2019 06/14/2020 1 1 Test & Treat Encounter Details Date Type Department Care Team Description 08/24/2019 Office Visit Cardiology at [facility] Tarik Olvera MD Atypical atrial flutter (Primary Dx); Formerly [facility], [facility] Atr ial fibrillation, unspecified type; [facility] Systolic heart failure, unspecified HF c hronicity; [place], [place] [address] Chronic systolic heart failure; [id number] LBBB (left bundle branch blo ck) Social History Tobacco Use Types Packs/Day Years [...] Sign Reading Time Taken Comments Blood Pressure 114/83 08/24/2019 10:00 AM EDT Pulse 77 08/24/2019 10:00 AM EDT Temperature - - Respiratory Rate - - Oxygen Saturation 100% 08/24/2019 10:00 AM EDT Inhaled Oxygen Concentration - - Weight 77.7 kg (171 lb 6.4 oz) 08/24/2019 10:00 AM EDT Height 175.3 cm (5' 9) 08/24/2019 10:00 AM EDT Body Mass Index 25.31 08/24/2019 10:00 AM EDT documented in this encounter Patient Instructions Patient InstructionsKTarik causey MD - 08/24/2019 9:40 AM EDT It was a pleasure to meet you and Lachelle today. We reviewed your history, which includes history of multiple surgeries, persistent atrial flutter (very possibly atypical, left-sided), and left bundle branch block (which results in some ventricular dyssynchrony). There are multiple approaches which can be taken to help which include ablation, anti-arrhythmic medication with or w/o cardioversion, and the possibility of pacemaker therapy, including for cardiac resynchronization. I will review these options w/ Dr You and together devise a plan tailored for you and your needs. One of us will contact you next week. documented in this encounter Progress Notes Tarik Olvera MD - 08/24/2019 9:40 AM EDT Images from the original note were not included. CARDIAC ELECTROPHYSIOLOGY CLINIC INITIAL CARDIAC ELECTROPHYSIOLOGY CONSULTATION: Date of Consultation: 08/24/19 Reason for Consultation: ? ASSISTANT PROJECT MANAGER Referring Clinician: Lali You MD PCP: Pricila Geller APRN Intake note reviewed and agreed with. The history was obtained from the patient with supplemention from the patient's medical record. The patient was accompanied by : his nail galvanizer Lachelle History of Present Illness: Cong Khan is a 64 y.o. male who is referred for initial cardiac electrophysiology consultationregarding adjunctive electrophysiologic device management of chronic systolic LV dysfunction CHF with LBBB. Cong has a a h/o MVR, TV repair and AVR in 2013 in [place]. TTE 02/05 showed EF 30-35%, bioAVR, mean gradient 19, bioprosthetic MVR with pressure 1/2 time of 108, Peak 1.5, EOA 1.36. LA mildly dilated. RV normal size w/ mildly reduced function. PASP 15-25. LVEDD 5.4cm. I believe he may have also received concomitant surgical MAZE for treatment of AF. Admitted to [facility] in 09/06 at which point his EF was 31%, paradoxical septal motion, mod/severe LVH, severe LAE, mod reduced RV function. ?? He has Afib/flutter w/ Zio from 02/05 showing rate-controlled Aflutter average rate of 87 with a range of 31-142. REVIEW OF SYSTEMS: General: Denies fevers, chills, night sweats no recent weight changes. + fatigue Vision: Denies visual changes or diplopia ENT: No vertigo no hearing changes no epistaxis, mouth pain or lesions. Denies dysgeusia Cardiovascular: No chest pain, chest pressure, + rare palpitations, orthopnea, P paroxysmal nocturnal dyspnea nor peripheral edema. Mostly he suffers from marked dyspnea on exertion. Gastro-intestinal: No dysphagia, abdominal pain, GERD symptoms, melena nor bright red blood per rectum Genitourinary: No dysuria nor hematuria Musculoskeletal: No arthralgias nor myalgias Endocrine: No polydipsia, polyuria, cold or heat intolerance Neurologic: No focal neurologic deficits, weakness, tingling or visual changes Hematologic/lymphatic systems: No abnormal bleeding, no new lymph nodes no swelling Skin: No rash no new lesions Psychiatric: No new depression or anxiety. Patient Active Problem List Diagnosis Code ??? Acute systolic congestive heart failure I50.21 ??? Atrial fibrillation I48.91 ??? Hypertension I10 ??? 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 Stroke I63.9 ??? Valvular disease I38 ??? 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 Past Medical History: Diagnosis Date ??? Alcohol use disorder ??? Atrial fibrillation ??? CHF (congestive heart failure) ??? Hypertension ??? Mitral valve prolapse s/p bio MVR H/o CVA w/ left hand/arm wekaness/clumsiness, resolved. CURRENTS MEDS: Outpatient Medications Marked as Taking for the 08/24/19 encounter (Office Visit) with Tarik Olvera MD Medication Sig Dispense Refill ??? tamsulosin (FLOMAX) 0.4 mg Capsule 0.4 mg daily. 11 ??? finasteride (PROSCAR) 5 mg Tablet 5 mg daily. 11 ??? metoprolol (LOPRESSOR) 100 mg Tablet Take 175 mg by mouth every morning. ??? metoprolol succinate (TOPROL-XL) 50 mg Tablet Sustained Release 24 hr Take 75 mg by mouth nightly. ? spironolactone (ALDACTONE) 25 mg Tablet Take 25 mg by mouth daily. ??? [DISCONTINUED] apixaban (ELIQUIS) 2.5 mg Tablet Take 1 tablet by mouth 2 times daily. ??? aspirin 81 mg Tablet, Chewable Take 81 mg by mouth daily. 30 tablet 3 ??? torsemide (DEMADEX) 20 mg Tablet Take 2 tablets by mouth daily. (Patient taking differently: Take 20 mg by mouth daily.) 30 tablet 3 ALLERGIES: Patient has no known allergies. SOCIAL HISTORY: Social History Socioeconomic History ??? Marital status: Single Spouse name: None ??? Number of children: None ??? Years of education: None ??? Highest education level: None Occupational History ??? None Social Needs ??? Financial resource strain: None ??? Food insecurity: Worry: None Inability: None ??? Transportation needs: Medical: None Non-medical: None Tobacco Use ??? Smoking status: Never Smoker ??? Smokeless tobacco: Never Used Substance and Sexual Activity ??? Alcohol use: No Comment: Former heavy daily user quit in 2013 ??? Drug use: No Comment: Former cocaine user ??? Sexual activity: Never FAMILY HISTORY: No history of familial arrhythmic syndromes nor sudden cardiac Family History Problem Relation Age of Onset ??? Emphysema Mother ??? Hypertension Mother ??? Alcohol Abuse Father ??? Aneurysm Father ??? Hypertension Father ??? Substance Abuse Brother PHYSICAL EXAMINATION BP 114/83 Pulse 77 Ht 175.3 cm (5' 9) Wt 77.7 kg (171 lb 6.4 oz) SpO2 100% BMI 25.31 kg/m?? General: well appearing HEENT: atrumatic, PERRL, mucous membranes moist. Note is made of a hearing aid Neck: No jugular venous distension, no thryomegaly, no carotid bruits Lungs: clear to auscultation bilaterally without wheezes, rales or rhonchi Heart: irregular rate and rhythm, normal S1 and S2, multiple systolic murmurs no rubs or gallops Abdomen: soft nintender, nondistended with normal active bowel sounds Extremities: no clubbing, cyanosis. Trace to 1+ edema Skin: no rash, tattoos Neuro: awake, alert and oriented x 3. No gross focal neurologic deficit Psych: Normal affect, speech volume and content, engaging personality. Data Reviewed: See HPI above Zio March 2019: Atrial fibrillation was present for the entire duration of the recording The average heart rate was 82 bpm, with a range of 41 bpm to 156 bpm ?? Ectopic beats ?? 0 atrial premature beats (APC???s) rare ventricular premature beats (VPC's); ventricular bigeminy was also seen ?? There was 1 pause, this was 3.1 seconds at 1 pm on 04/06/2019 ?? There were 2 episodes of wide complex tachycardia, average of 127 bpm The fastest was 6 beats, 125 bpm The longest was 9 beats at an average of 129 bpm These appear to be slightly irregular and likely represent aberrant conduction of atrial arrhythmias Echo March 2019: ?? 1. Moderate concentric left ventricular hypertrophy is observed. Global left ventricular systolic function is moderately reduced. GLS -9.9% on GE E9. The quantitative left ventricular ejection fraction by biplane Walker's method is 38%. There are left ventricular segmental wall motion abnormalities present, as shown in the diagram below. 2. The right ventricle is normal in size. Right ventricular global systolic function is mildly reduced. 3. A porcine bio-prosthetic aortic valve is present. The mean trans-valvular gradient across the aortic valve is 24 mmHg. (DOI=0.24) Moderate (2+/4+) aortic valve prosthesis regurgitation is present. 4. A bovine bio-prosthetic mitral valve is present. The mean gradient across the mitral valve is 5 mmHg. @ 75 bpm. There is a trace amount of mitral prosthesis regurgitation. 5. When compared with study dated 08/2017 and report from [email or web address] dated 01/2018, findings are similar. Left Atrium: The left atrium is severely dilated. ECG: today, read as atrial fibrillation but actually is predominantly 3:1 conducted atypical-appearing flutter, with LBBB, QRS 168ms, QTC ~ 470 ASSESSMENT(s): This patient is definitely a candidate for adjunctive non-pharacologic therapy of his chronic systolic congestive heart failure (NYHA Class III, Stage C-D, LVEF below 36% despite >> 3 months of optimized pharmacologic treatment (guideline-directed). We discussed the differences between ASSISTANT PROJECT MANAGER-P and ASSISTANT PROJECT MANAGER-D and he indicated his inclination to receive a defibrillator if anything. HOWEVER, his atypical atrial flutter throws a wrinkle into what may be his optimal course of care, in that I suspect strongly that higher rates secondary to his flutter, especially when ambulating, contribute to his to his dyspnea. Also: if there is no intent to pursue rhythm control in this gentleman(which would be a challenge given h/o valve-disease associated AF , multiple cardiac surgeries and aseverely dilated LA) then flutter at higher rates would compete w/ ASSISTANT PROJECT MANAGER and result in less than optimal ASSISTANT PROJECT MANAGER. Studies have shown that there can be significant differences in outcome between seemingly small differences in ASSISTANT PROJECT MANAGER such as 95% vs 98%. I am loathe to consider a left atrial ablation procedure given the substrate (severe dilation, h/o CVA) and low probabilty of success. It is not impossible (though unlikely), however that his flutter is right sided as his MAZE and surgical h/o can severely alter his ECG, in which case a right sided ablation could be reasonably attempted. AVJ ablation either planned or If determined needed w/ escalation of rate control post ASSISTANT PROJECT MANAGER would maximize ASSISTANT PROJECT MANAGER. Having a pre-op plan regarding the pursuit of rate versus rhythm control in this patient has important consequences, not least whether or not to bother implanting a right atrial lead. Finally, I am highly concerned that he should be therapeutically anticoagulated, given his history of CVA, even if he had a left atrial appendectomy w/ either of his surgeries. At age < 78 and wt > 60 kg , he should still be on apixiban 5 mg po bid per guidelines and product insert, or alternatively back of on warfarin. Any rhythm control pursuit of course would be contingent upon being able to therapeutically anticoagulate him. PLAN: Thus , his available options in terms of plans of care are numerous. I indicated to Cong that I would like to discuss them w/ Dr. You before making a final recommendation. Unfortunately her and my vacation schedules conflicted such that we were unable to connect the week post-visit. Accordingly I will close this note with the following propositions: 1. If able to therapeutically anticoagulate, then bring to lab for right atrial and coronary sinus electroanatomical mapping to determine whether his flutter is left (as suspected) or right sided. If right sided ablate, if left sided convert and start on either amiodarone or renal-adjusted dofetililde. If maintains sinus rhythm for > 2 weeks or so, proceed w/ 3 lead ASSISTANT PROJECT MANAGER-D. The EP study would also give us the opportunity to confirm CS patency given the patient's prior mitral valve surgery (which can sometimes kink or obstruct the CS) and allow us to anticipate and anttempt at distal His bundle epicardial ASSISTANT PROJECT MANAGER pacing. 2. If cannot be fully anticoagulated, then pursue rate control strategy by implanting 2 lead ASSISTANT PROJECT MANAGER-D, advance rate control, and consider AVJ ablation in the future if found indicated. Thank-you for the opportunity to be involved in the care of this complex cardiovascular patient along with you. Tarik Olvera MD, PhD, [facility] Cardiac Electrophysiology documented in this encounter Plan of Treatment Upcoming Encounters Date Type Specialty Care Team Description 06/16/2022 Laboratory Appointment Lab 06/16/2022 Office Visit Cardiology Gianna Lorenzana PA [facility] Cardiology Dept [place], [place] [address] (Wo rk) Scheduled Procedures Name [...] Associated Diagnosis Comme nts EKG 12-LEAD Routine 08/24/2019 10:07 AM Atrial fibrillation, Results for this EDT unspecified type procedure a re in the results section. documented in this encounter Results EKG 12 Lead (08/24/2019 10:07 AM EDT) Component Value Ref Range Test Analysis Performed Pathologis t Method Time At Signature Ventricular rate 67 BPM MUSE SYSTEM Atrial Rate 277 BPM MUSE SYSTEM QRS Duration 168 ms MUSE SYSTEM Q-T Interval 444 ms MUSE SYSTEM QTC Calculated 469 ms MUSE SYSTEM (Bezet) Calculated R [place] -57 degrees MUSE SYSTEM Calculated T [place] 30 degrees MUSE SYSTEM INTERPRETATION Atrial fibrillation with ventricular escape complexes MUSE SYSTEM Left axis deviation Left bundle branch block Abnormal ECG When compared with ECG of 31-AUG-2017 09:54, Atrial fibrillation has replaced Atrial flutter Nonspecific T wave abnormality now evident in Inferior leads QT has shortened Confirmed by MD Daniella, Margi ([id number]) on 08/24/2019 5:2 3:17 PM Specimen Anatomical Collection Method Collection Time Receive d Time (Source) Location / / Volume Laterality 08/24/2019 10:07 08/24/2019 5:23 AM EDT PM EDT Tarik Olvera MD ECG ORDERABLES Performing Organization Address City/State/ZIP Code Phon e Number MUSE SYSTEM documented in this encounter Visit Diagnoses Diagnosis Atypical atrial flutter - Primary Atrial flutter Atrial fibrillation, unspecified type Systolic heart failure, unspecified HF c hronicity Chronic systolic heart failure LBBB (left bundle branch block) Other left bundle branch block documented in this encounter Care Teams Marine Structural Welder Relationship Specialty Start Date End Date Pricila Geller APRN PCP - General Family Medicine 11/24/[address] [facility] [address] documented as of this encounter
--- OUTSIDE RECORDS SUMMARY | 2022-05-20 07:39 | XMS_ITS | Encounter Summary ---
:1955 Author Organization [facility] [place] [address] Care Team Providers Name Role Phone Pricila Geller JOELLE Primary Care Provider Reason for Visit Diagnostic Test (Routine) - Closed Specialty Diagnoses / Procedures Referred By Contact Refer red To Contact Radiology Diagnoses Chronic systolic heart failure Lali Vu [facility] Rad Nuclear Med Procedures NM Pharmacologic Stress and Rest Myocardial Perfusion NM Exercise Stress and Rest Myocardial Perfusion [place] [address] [place] [address] Fax: Referral ID Status Reason Start Date Expiration Date Visits V isits Requested Authorized [id number] Closed Specialty 12/07/2019 06/06/2021 1 1 Service Requested Encounter Details Date Type Department Care Team Description 01/18/2020 Hospital Encounter Nuclear Medicine at [facility] systolic [facility] heart failure [facility] [address] [place], [place] [phone] Social History Tobacco Use Types Packs/Day Years [...] [facility] [place], [place] [address] (Wo rk) Scheduled Procedures Name [...] contact e number below. Lali Whelan MD [facility] ORDERABLES documented in this encounter Visit Diagnoses Diagnosis Chronic systolic heart failure documented in this encounter Administered Medications Inactive Administered Medications - up to 3 most recent administrations Medication Order MAR Action Action Date Dose Rate Site technetium (Tc-99m) Given 01/18/2020 10:55 AM EST 9.8 mCi Left Arm sestamibi injection 0-30 mCi 0-30 mCi, Intravenous, ONCE PRN, 1 dose, Starting on Tue01/18/20 at 1059, Until Tue01/18/20 at 1055, Per Protocol, Radiology Contrast, Routine documented in this encounter Care Teams Supply Chain Generalist Relationship Specialty Start Date End Date Pricila Geller APRN PCP - General Family Medicine 11/24/18 [place] [address] documented as of this encounter
--- OUTSIDE RECORDS SUMMARY | 2022-05-20 07:39 | XMS_ITS | Encounter Summary ---
:1955 [place] [address] Care Team Providers Name Role Phone Pricila Geller APRN Primary Care Provider Reason for Visit Reason Onset Date Comments Follow-up 02/08/2020 BMP S/P Nadir stop Encounter Details Date Type Department Care Team Description 02/08/2020 Telephone Cardiology at [facility] Prisca Russ, Follow-up (BMP S/P Nadir [facility] RN stop ) [place] [phone] Social History Tobacco Use Types Packs/Day [...] Telephone Encounter - Prisca Russ, RN - 02/08/2020 6:43 PM EDT Pt got BMP done on 02/02/20, results received, entered into eD-H for Dr You to review. Pt has been off the Spironolactone, as directed for the past several week. Potassium level improved, renal function still high. Pt reports that he does not drink as much fluid as he should and will work on Getting 1.5 - 2 liters of fluid in daily. His weight has drifted up from goal 170 lbs to 179 lbs over the past couple months. Denies any swelling or difficulty breathing. Medications reviewed and list updated to reflect his current dosing. He is scheduled for f/u with Dr You on 02/14. Should he restart the Spironolactone? If yes at what dose, he was taking 25 mg daily. documented in this encounter Plan of Treatment Upcoming Encounters Date Type Specialty Care Team Description 06/16/2022 Laboratory Appointment Lab 06/16/2022 Office Visit Cardiology Gianna Lorenzana PA [facility] er Cardiology Dept [place], [place] [address] (Wo rk) Scheduled Procedures Name [...] Tad A, Understanding Action Plan [facility] Note: Formatting of this note might be d ifferent from the original. Maintain 100% adherence to Entresto twic e daily regimen documented as of this encounter Procedures Procedure Name Priority Date/Time Associated Diagnosis Comme nts BASIC METABOLIC Routine 02/02/2020 9:10 AM Result s for this PANEL (NON-FASTING) EDT procedur e are in the results section. documented in this encounter Results (ABNORMAL) Basic Metabolic Panel (non-fasting) (02/02/2020 9:10 AM EDT) P athologist Signature Glucose Lvl 118 EXTERNAL LAB BUN 42 EXTERNAL LAB Creatinine 2.17 EXTERNAL LAB Estimated GFR 30.48 EXTERNAL LAB Sodium 139 EXTERNAL LAB Potassium 3.9 EXTERNAL LAB Chloride 100 EXTERNAL LAB CO2 30 EXTERNAL LAB Calcium 8.5 EXTERNAL LAB Anion Gap 9 EXTERNAL LAB Specimen (Source) Anatomical Collection Method Collection Time Re ceived Time Location / / Volume Laterality Blood specimen 02/02/2020 9:10 AM (specimen) EDT Historical Provider CHEMISTRY ORDERABLES Performing Organization Address City/State/ZIP Code Phon e Number EXTERNAL LAB documented in this encounter Visit Diagnoses Not on filedocumented in this encounter Care Teams Vegetables Cook Relationship Specialty Start Date End Date Pricila Geller APRN PCP - General Family Medicine 11/24/18 [address] [place] [address] documented as of this encounter
--- OUTSIDE RECORDS SUMMARY | 2022-05-20 07:39 | XMS_ITS | Encounter Summary ---
:1955 Author Organization [facility] [place] [address] Care Team Providers Name Role Phone Pricila Geller JOELLE Primary Care Provider Reason for Visit Reason Onset Date Comments Medication Refill 08/28/2019 Eliquis Encounter Details Date Type Department Care Team Description 08/28/2019 Refill Cardiology at [facility] Lizbeth Lopez, Medication Refill [facility] (Eliquis) [place] [address] CARDIOLOGY DEPT. [place], [place] [address] (Wo rk) Social History Tobacco [...] 06/16/2022 Office Visit Cardiology Gianna Lorenzana PA [facility] Cardiology Dept [place], [place] [address] (Wo rk) Scheduled Procedures Name [...] artery documented in this encounter Care Teams Batchmaker Relationship Specialty Start Date End Date Pricila Geller APRN PCP - General Family Medicine 11/24/18 [place] [address] documented as of this encounter
--- OUTSIDE RECORDS SUMMARY | 2022-05-20 07:39 | XMS_ITS | Encounter Summary ---
:1955 Author Organization [facility] [place] [address] Care Team Providers Name Role Phone BenjamínPricila marcus APRN Primary Care Provider Encounter Details Date Type Department Care Team Description 06/01/2019 Orders Only Orthopaedics at [facility] Christen Harris History of total hip [facility] BEHZAD Rosas arthropfrance lindsay, [place] [address] Social History Tobacco Use Types Packs/Day [...] Visit Cardiology Gianna Lorenzana PA [facility] Cardiology Dept [place], [place] [address] (Wo rk) Scheduled Procedures Name Priority Associated Diagnoses Date/Time EGD, UPPER GI ENDOSCOPY Chronic cough Heartburn RUQ pain Fecal urgency Dysphagia, unspecifi ed type History of hepatitis C COLONOSCOPY, DIAGNOSTIC Chronic cough Heartburn RUQ pain Fecal urgency Dysphagia, unspecifi ed type History of hepatitis C documented as of this encounter Results XR Fluoro Guided Joint [...] please contact e number below. ? Narrative 06/20/2019 12:43 PM EDT HISTORY: Pain, [...] electronic medical record and allergies, as per [facility] protocol. A pre- procedural time-out was performed as per [facility] protocol. The patient was placed supine on [...] with hannah asif Procedure Note Latonia Caraballo, [employer] CUTTER - 06/20/2019Forma tting of this note might be different from the original. HISTORY: Pain, R/O infection of right hi p joint space with ZAKI. RIGHT HIP JOINT ASPIRATION WITH LIDOCAIN E INJECTION UNDER FLUOROSCOPY TECHNIQUE: After an extensive conversation with the patient regarding risks and benefits, oral and written consent were obtained.? A pre- procedural time-out was performed, including review of the sierra quezada's relevant electronic medical record and allergies, as per [facility] protocol. A pre- procedural time-out was performed as per [facility] protocol. The patient was placed supine on [...] procedure pain were reviewed with hannah asif IMPRESSION Uneventful right hip joint aspiration an d lidocaine injection. Pain level pre aspiration/injection 5/1. Post lodocaine injection. 0/10. Resident/Fellow: None Attending: There was no attending presen t for this procedure Procedure performed by APPLE Pena RN Thank you for letting us participate in the care of this patient. For questions regarding this report, please contact e number below. Beltran Conrad MD IMG FLUORO ORDERABLES Fungus culture Joint (06/19/2019 2:41 PM EDT) [facility] gist Method Time Signature Fungus No Fungus [facility] Culture isolated [facility] Specimen Anatomical Collection Method Collection Time Receive d Time (Source) Location / / Volume Laterality Joint sample 06/19/2019 2:41 PM 9 3:18 (specimen) EDT PM EDT Resulting Agency Comment Spec In Lab Beltran Conrad MD MICROBIOLOGY - GENERAL ORDER YUNIEL Performing Organization Address City/[facility]/[place] [address] Crystal Exam Body Fluid Hip Joint Fluid (06/19/2019 2:41 PM EDT) Patholo gist Method Time Signature Crystal BF Hip [facility] LABORATORY Crystal BF None Seen [facility] Specimen Anatomical Collection Method Collection Time Receive d Time (Source) Location / / Volume Laterality Hip joint 06/19/2019 2:41 PM 9 2:59 synovial fluid EDT PM EDT (specimen) Resulting Agency Comment Spec In Lab Beltran Conrad MD BODY FLUIDS AND STOOLS ORDER YUNIEL Performing Organization Address City/[facility]/ZIP Code Phon e Number [address] Cell Count Body Fluid Hip Joint Fluid (06/19/2019 2:41 PM EDT) P athologist Signature Spec Type BF Hip [facility] Color BF [place] [facility] Appearance BF Cloudy [facility] WBC BF Ct Clotted [facility] Comment: called by ML to Saeid [...] to patients chart. Polymorph % Clotted % [facility] Comment: Polymorphonuclear cell percent and absol point hope ira values may contain Neutrophils, Eosinophils, and Basophils. Body fluid s mear will be scanned manually for concordance. Mononuc % Clotted % [facility] Comment: Mononuclear cell percent and absolute va lues may contain Lymphocytes and Monocytes. Body fluid smear will be scan kimberlyn manually for concordance. Polymorph BF ABS Clotted /[facility] LABORATORY Comment: Polymorphonuclear cell percent and absol point hope ira values may contain Neutrophils, Eosinophils, and Basophils. Body fluid s mear will be scanned manually for concordance. Mononuc ABS Clotted /[facility] LABORATORY Comment: Mononuclear cell percent and absolute [...] Organization Address City/State/[place] [address] documented in this encounter Visit Diagnoses Diagnosis History of total hip arthroplasty, right History of total hip arthroplasty, right documented in this encounter Care Teams Treatment Specialist Relationship Specialty Start Date End Date Pricila Geller APRN PCP - General Family Medicine 11/24/18 [place] [address] documented as of this encounter
--- OUTSIDE RECORDS SUMMARY | 2022-05-20 07:39 | XMS_ITS | Encounter Summary ---
:1955 Author Organization [facility] [place] [address] Care Team Providers Name Role Phone Pricila Geller APRN Primary Care Provider Reason for Visit Reason Comments Medication Management Encounter Details Date Type Department Care Team Description 08/15/2019 Specialty Pharmacy Pharmacy at [facility] Medication Management [facility] [place] [phone] Social History Tobacco Use Types Packs/Day Years [...] encounter Progress Notes Zach Ernst RPH - 08/15/2019 12:33 PM EDT Clinical Management Plan: Refill Specialty Pharmacy Consultation; Zach Ernst [facility] Comprehensive Medication Management (CMM) Cong Khan is [...] Title Type of Medication Management: chronic disease management Referred By: provider Provider: plan sponsor pharmacist Visit Type: [facility] Follow-up Method of Contact: by telephone Allergies and Drug intolerance: No Known Allergies Medication Reconciliation Discrepancies (compared to [facility] med list) -none New medications: no New [...] were made at the appointment and that [facility] is providing recommendations (summary located at top of note) for provider review and follow up. Zach Ernst RPH 08/15/19 12:34 PM documented in this encounter Plan of Treatment Upcoming Encounters Date Type Specialty Care Team Description 06/16/2022 Laboratory Appointment Lab 06/16/2022 Office Visit Cardiology Gianna Lorenzana PA [facility] Cardiology Dept [place], [place] [address] (Wo rk) Scheduled Procedures Name [...] on filedocumented in this encounter Care Teams Senior Vice President & General Counsel Relationship Specialty Start Date End Date Pricila Geller APRN PCP - General Family Medicine 11/24/18 Jessica [facility] [address] documented as of this encounter
--- OUTSIDE RECORDS SUMMARY | 2022-05-20 07:39 | XMS_ITS | Encounter Summary ---
:1955 Author Organization [facility] [place] [address] Care Team Providers Name Role Phone Pricila Geller APRN Primary Care Provider Encounter Details Date Type Department Care Team Description 09/21/2019 Refill Cardiology at [facility] Lali Vu, [facility] [place] [address] [facility] [phone] [place], [place] [address] (Wo rk) Social History Tobacco [...] Gianna Lorenzana PA [facility] er Cardiology Dept [place], [place] [address] (Wo rk) Scheduled Procedures Name [...] on filedocumented in this encounter Care Teams Cement Kiln Operator Relationship Specialty Start Date End Date Pricila Geller APRN PCP - General Family Medicine 11/24/18 [address] [place] [address] documented as of this encounter
--- OUTSIDE RECORDS SUMMARY | 2022-05-20 07:39 | XMS_ITS | Encounter Summary ---
:1955 Author Organization [facility] [place] [address] Care Team Providers Name Role Phone Pricila Geller JOELLE Primary Care Provider Encounter Details Date Type Department Care Team Description 06/19/2019 Laboratory Appointment Lab 3L [facility] [place] [phone] Social History Tobacco Use Types Packs/Day Years [...] 06/16/2022 Office Visit Cardiology Gianna Lorenzana PA [facility] Cardiology Dept [place], [place] [address] (Wo rk) Scheduled Procedures Name [...] Name Priority Date/Time Associated Diagnosis Comme nts LIPID PANEL (REFLEX Routine 06/19/2019 3:06 PM Chronic systoli c Results for this DIRECT LDL) EDT heart failure procedure are in the results section. documented in this encounter Results Lipid Panel (06/19/2019 3:06 PM EDT) athologist Signature Chol, Total 153 mg/dL [facility] Comment: Lower Risk: <200 mg/dL Average Risk: 200-239 mg/dL Higher Risk: >bo=425 mg/dL Triglycerides 74 mg/dL [facility] Comment: Average Risk/Lower Risk: <150 mg/dL Borderline High Risk: 150-199 mg/dL High Risk: 200-499 mg/dL Very High Risk: >zf=004 mg/dL HDL 56 mg/dL [facility] Comment: Males: ?? Higher Risk: <40 mg/dL Females: ?? HIgher Risk: <50 mg/dL LDL Cholesterol 82 mg/dL [facility] Comment: Lowest Risk: <100 mg/dL Lower Risk: 100-129 mg/dL Borderline High Risk: 130-159 mg/dL High Risk: 160-189 mg/dL Very High Risk: >jp=311 mg/dL Chol/HDL Ratio 2.7 ratio [facility] Lipid Interpretation See Note [facility] Comment: Lipid management should be guided by a p atient? s ASCVD risk, goals and preferences. ACC/AHA Guidelines recommend high intens ity statin if clinical ASCVD or LDL greater than or equal to 190 mg/dL. http://[employer].com/XHW-HJK-Westfkicu Adults aged 40-75 with LDL 70-189 mg/dL should have their 10 year ASCVD risk estimated with the ACC/AHA ASCVD risk es timator http://tools.acc.org/YDEVH-Yzie-Xqgaxmzq r/ Statin should be discussed if risk [...] Organization Address City/State/[place] [address] documented in this encounter Visit Diagnoses Diagnosis Chronic systolic heart failure documented in this encounter Care Teams Wallpaper Consultant Relationship Specialty Start Date End Date Pricila Geller APRN PCP - General Family Medicine 11/24/[place] [address] documented as of this encounter
--- OUTSIDE RECORDS SUMMARY | 2022-05-20 07:39 | XMS_ITS | Encounter Summary ---
:1955 Author Organization [facility] [place] [address] Care Team Providers Name Role Phone Pricila Geller APRN Primary Care Provider Encounter Details Date Type Department Care Team Description 01/15/2020 Orders Only Cardiology at [facility] Avelino Whelan, Chronic systolic heart [facility] [place] [address] [place] [address] [phone] (Wo rk) Social History Tobacco Use Types [...] Visit Cardiology Gianna Lorenzana PA [facility] Cardiology Dept [place], [place] [address] (Wo rk) Scheduled Procedures Name [...] failure documented in this encounter Care Teams Straddle Bug Operator Relationship Specialty Start Date End Date Pricila Geller APRN PCP - General Family Medicine 11/24/18 [address] [facility] [address] documented as of this encounter
--- OUTSIDE RECORDS SUMMARY | 2022-05-20 07:39 | XMS_ITS | Encounter Summary ---
:1955 Author Organization [facility] [place] [address] Care Team Providers Name Role Phone Pricila Geller APRN Primary Care Provider Reason for Visit Reason Comments Medication Management Patient Education Encounter Details Date Type Department Care Team Description 12/14/2019 Specialty Pharmacy Pharmacy at [facility] Klever [facility] KENNETH Serrano Managemen t; Patient [facility] [place] [address] Social History Tobacco Use Types Packs/Day Years [...] encounter Progress Notes Zach Ernst RPH - 12/14/2019 4:26 PM EST Clinical Management Plan: Refill Specialty Pharmacy Consultation; Zach Ernst RPH Comprehensive Medication Management (CMM) Cong Missy Bill Mr. Cong Khan is a 64 y.o. [...] patient 5-7 days prior to next refill. Signed up Cnog with his consent for [employer] funding, reducing his copay from $322 to $0 Was a change made to the Care Plan: no If yes, should the medication be held: No Assessment and Recommendations: Title Type of Medication Management: chronic disease management, targeted medication review Referred By: provider Recipient: beneficiary Provider: plan sponsor pharmacist [place] [facility] [place] Method of Contact: by telephone Cognitive Ability: good Cognitive Impairment Status Verified this Year: no Allergies and Drug intolerance: No Known Allergies Medication Reconciliation Discrepancies (compared to [facility] med list) -none New medications: no [...] were made at the appointment and that [facility] is providing recommendations (summary located at top of note) for provider review and follow up. Zach Ernst RPH 12/14/19 4:27 PM documented in this encounter Plan of Treatment Upcoming Encounters Date Type Specialty Care Team Description 06/16/2022 Laboratory Appointment Lab 06/16/2022 Office Visit Cardiology Gianna Lorenzana PA [facility] Cardiology Dept [place], [place] [address] (Wo rk) Scheduled Procedures Name [...] on filedocumented in this encounter Care Teams Mash Tub Cooker Operator Relationship Specialty Start Date End Date Pricila Geller, JOELLE PCP - General Family Medicine 11/24/18 [address] [facility] [place] [address] documented as of this encounter
--- OUTSIDE RECORDS SUMMARY | 2022-05-20 07:39 | XMS_ITS | Encounter Summary ---
:1955 Author Organization [place] [address] Care Team Providers Name Role Phone Pricila Geller APRN Primary Care Provider Reason for Visit Reason Comments Medication Refill Encounter Details Date Type Department Care Team Description 07/19/2019 Specialty Pharmacy Pharmacy at [facility] Dianne [place] [address] Social History Tobacco Use Types Packs/Day Years [...] documented as of this encounter Progress Notes Dianne Mccray RPH - 07/19/2019 9:59 AM EDT Clinical Management Plan: Refill Specialty Pharmacy Consultation; Dianne Mccray Rosalinda Comprehensive Medication Management (CMM) Cong Khan [...] Management: chronic disease management Referred By: provider Recipient: beneficiary Provider: plan sponsor pharmacist Visit Type: [facility] Follow-up Method of Contact: by telephone Allergies and Drug intolerance: No Known Allergies Medication Reconciliation Discrepancies (compared to [facility] med list) -none identified New medications: no New medical conditions: no New allergies: no Adherence: Medication Adherence Patient reported X missed doses in the last month: 0 Any gaps in refill history greater than 2 weeks in the last 3 months: no Informant: patient Reliability of informant: reliable Provider-estimated medication adherence level: good Reasons for non-adherence: no problems identified Confirmed plan for next specialty medication refill: delivery by pharmacy Are you experiencing any side effects from your medications? no Pt understands no changes to current drug regimen were made at the appointment and that [facility] is providing recommendations (summary located at top of note) for provider review and follow up. Dianne Mccray [facility] 07/19/19 10:01 AM From 07/24/19: Specialty Pharmacy Consultation; Tad Canada [facility] Comprehensive Medication Management (CMM) Cong Khan Diagnosis: Systolic Heart Failure Therapy Start Date: 06/24/19 Contact in person or via telephone: Phone Mr. Cong Khan is a 64 y.o. (1955) male who was contacted in regard to specialty medication. Spoke with patient regarding Entresto. A review of the medication therapy was performed and all medication related questions and concerns were addressed. The specialty pharmacy staff will follow up with the patient 5-7 days prior to next refill. Is the patient willing to proceed with the Clinical Assessment? Yes Summary and Recommendations: Patient was contacted for routine one-month follow-up consultation regarding specialty medication, Entresto. A medication reconciliation was performed in addition to a confirmation of allergies with nochanges noted. Patient has had a great first few weeks on his new medication with no discernable side effects noted - denies lightheadedness, dizziness, orthostatic hypotension. No issues with adherence as he uses a pill assistant media planner and endorses fantastic adherence to all of his medications. He continues to monitor his BP an average of three times weekly and states his most recent reading was 107/71 mmHg. No corresponding HR noted. Overall he is very happy with his new medication and is interested in tit rating to higher dosage given our past conversation during initial consult. He had no additional questions or concerns at the end of our encounter. Clinic follow-up needed: Yes - next HF Clinic visit on 12/07/[address] You Allergies and Drug intolerance: No Known Allergies Special Dietary or Hydration Requirements: no There is no height or weight on file to calculate BMI. Medication Reconciliation Discrepancies (compared to [facility] med list) no Medication Adherence Patient reported X missed doses in the last month: 0 Any gaps in refill history greater than 2 weeks in the last 3 months: no Informant: patient Reliability of informant: reliable Provider-estimated medication adherence level: good Reasons for non-adherence: no problems identified Confirmed plan for next specialty medication refill: delivery by pharmacy Medication List: Current Outpatient Medications Medication Sig [...] Management: chronic disease management Referred By: provider Recipient: beneficiary Provider: plan sponsor pharmacist Visit Type: [facility] Follow-up Method of Contact: by telephone Drug Treatment Outcomes No data found in the last 10 encounters. Reviewed in detail with patient: Dose appropriateness [...] mitigation strategies, and interruptions in therapy: Yes Economic Assessment: Patient is agreeable to medication copay: yes Copay Amount: N/A Day Supply: N/A Date Needed: N/A Copay assistance required: N/A Physical Assessment: Functional limitations identified: no Is patient a fall risk: no Cognitive limitations identified such as orientation, memory, reasoning or judgement: no Other: no Social Assessment: Does the patient have a primary human services care specialist? No Patient has emergency contact on file: Yes Does patient need referral to community mental health social worker: No Does patient need referral to advocacy group: No Physical and Home Health Assessment: Is the patient able to store their medication as directed? Yes Is the patient in a safe home environment? Yes Do you have a support network? Yes Reviewed potential home safety hazards: none noted Therapy Assessment: Appropriate Therapy: Yes Current Medication Dosing/Route/Frequency: Entresto 24-26 mg PO BID Effective: TBD Patient experienced change in condition that affects treatment: no Are you experiencing any side effects from your medication? no Patient Goals: Goals ??? DH Home Medication Compliance and Understanding Maintain 100% adherence to Entresto twice daily regimen Is the patient on track to achieve goals of therapy? Yes Additional care/services needed: no Educational information or adherence tools provided: Yes Additional equipment/supplies required: no Care Plan Reviewed and Approved by both Pharmacist and Patient: Yes Did Care Plan Change? No Informed patient of specialty pharmacy services: Yes -Patient received welcome packet: Yes Date Received: 06/24/19 Delivery Method: Mail -Patient returned signed Rights & Responsibilities: Yes Date Received: 06/24/19 Delivery Method: Mail -Patient is aware a [...] were made at the appointment and that [facility] is providing recommendations (summary located at top of note) for provider review and follow up. Tad Canada RPH 07/24/19 1:52 PM From 07/24/19: Specialty Pharmacy Consultation; Tad Canada [facility] Comprehensive Medication Management (CMM) Cong Khan Diagnosis: Heart failure Therapy Start Date: 06/24/19 Contact in person or via telephone: Phone Mr. Cong Khan is a 64 y.o. (1955) male who was contacted in regard to specialty medication. Spoke with patient regarding Entresto. A review of the medication therapy was performed and all medication related questions and concerns were addressed. The specialty pharmacy staff will follow up with the patient 5-7 days prior to next refill. Is the patient willing to proceed with the Clinical Assessment? Yes Summary and Recommendations: This patient was contacted for a routine one-month follow-up regarding specialty medication, Entresto. Medications and allergies were confirmed with no changes noted. Patient is now one full month intotherapy with a confirmed start date of 06/24/19. Patient confirms no issues with adherence thus far with no missed doses reported. Patient has been tolerating medication well with no side effects noted. So far patient endorses no changes to current status. No recent BMP or other labs to check for changes to K+ in eDH. Patient had no questions or concerns at the end of our encounter. Clinic follow-up needed: yes - next OV with Dr. You on 12/07/19 Allergies and Drug intolerance: No Known Allergies Special Dietary or Hydration Requirements: no There is no height or weight on file to calculate BMI. Medication Reconciliation Discrepancies (compared to [facility] med list) no Medication Adherence Patient reported X missed doses in the last month: 0 Any gaps in refill history greater than 2 weeks in the last 3 months: no Informant: patient Reliability of informant: reliable Provider-estimated medication adherence level: good Reasons for non-adherence: no problems identified Adherence tools used: directed education Confirmed plan for next specialty medication refill: delivery by pharmacy Medication List: Current Outpatient Medications Medication Sig Dispense Refill ??? sacubitril-valsartan (ENTRESTO) 24-26 mg Tablet tablet Take 1 tablet by mouth 2 times daily. 60 tablet 3 ??? apixaban (ELIQUIS) 2.5 mg Tablet Take 1 tablet by mouth 2 times daily. 180 tablet 3 ??? levoFLOXacin (LEVAQUIN) 500 mg Tablet 500 mg daily. 0 ??? tamsulosin (FLOMAX) 0.4 mg Capsule 0.4 mg daily. 11 ??? finasteride (PROSCAR) 5 mg Tablet 5 mg daily. 11 ??? losartan (COZAAR) 50 mg Tablet Take [...] Vitals: Ht Readings from Last 1 Encounters: 08/24/19 175.3 cm (5' 9) Wt Readings from Last 3 Encounters: 08/24/19 77.7 kg (171 lb 6.4 oz) 06/15/19 75.3 kg (166 lb) 06/05/19 75.7 kg (166 lb 14.4 oz) Temp Readings from Last 3 Encounters: 09/08/17 36.4 ??C (97.5 ??F) (Oral) BP Readings from Last 3 Encounters: 08/24/19 114/83 06/15/19 125/81 06/05/19 100/71 Pulse Readings from Last 3 Encounters: 08/24/19 77 06/15/19 76 06/05/19 87 Pertinent Lab values: Lab Results Component Value [...] Management: chronic disease management Referred By: provider Recipient: beneficiary Provider: plan sponsor pharmacist Visit Type: [facility] Follow-up Method of Contact: by telephone Drug Treatment Outcomes No data found in the last 10 encounters. Reviewed in detail with patient: Dose appropriateness [...] mitigation strategies, and interruptions in therapy: Yes Economic Assessment: Patient is agreeable to medication copay: yes Copay Amount: $25.67 Day Supply: 30 Date Needed: already received Copay assistance required: no Physical Assessment: Functional limitations identified: no Is patient a fall risk: no Cognitive limitations identified such as orientation, memory, reasoning or judgement: no Other: no Social Assessment: Does the patient have a primary human services care specialist? No Patient has emergency contact on file: Yes Does patient need referral to community mental health social worker: No Does patient need referral to advocacy group: No Physical and Home Health Assessment: Is the patient able to store their medication as directed? Yes Is the patient in a safe home environment? Yes Do you have a support network? Yes Reviewed potential home safety hazards: none noted Therapy Assessment: Appropriate Therapy: Yes Current Medication Dosing/Route/Frequency: Entresto 24-26 mg PO BID Effective: TBD Patient experienced change in condition that affects treatment: no Are you experiencing any side effects from your medication? no Patient Goals: Goals ??? DH Home Medication Compliance and Understanding Maintain 100% adherence to Entresto twice daily regimen Is the patient on track to achieve goals of therapy? Yes Additional care/services needed: no Educational information or adherence tools provided: Yes Additional equipment/supplies required: no Care Plan Reviewed and Approved by both Pharmacist and Patient: Yes Did Care Plan Change? No Informed patient of specialty pharmacy services: Yes -Patient received welcome packet: Yes Date Received: 07/25/19 Delivery Method: Mail -Patient returned signed Rights & Responsibilities: Yes Date Received: 07/25/19 Delivery Method: Mail -Patient is aware a [...] were made at the appointment and that [facility] is providing recommendations (summary located at top of note) for provider review and follow up. Tad Canada RPH 10/22/19 8:21 AM documented in this encounter Plan of Treatment Upcoming Encounters Date Type Specialty Care Team Description 06/16/2022 Laboratory Appointment Lab 06/16/2022 Office Visit Cardiology Gianna Lorenzana PA [facility] er Cardiology Dept [place], [place] [address] (Wo rk) Scheduled Procedures Name [...] and Facing Tad Wynne Understanding Action Plan [facility] Note: Formatting of this note might be d ifferent from the original. Maintain 100% adherence to Entresto twic e daily regimen documented as of this encounter Visit Diagnoses Not on filedocumented in this encounter Care Teams Irrigator Sprinkling System Relationship Specialty Start Date End Date Pricila Geller APRN PCP - General Family Medicine 11/24/18 [address] [place] [address] documented as of this encounter
--- OUTSIDE RECORDS SUMMARY | 2022-05-20 07:39 | XMS_ITS | Encounter Summary ---
:1955 Author Organization [facility] [place] [address] Care Team Providers Name Role Phone Pricila Geller APRN Primary Care Provider Encounter Details Date Type Department Care Team Description 02/11/2020 Refill Cardiology at [facility] Lali Vu, [facility] [place] [address] [facility] [phone] [place], [place] [address] (Wo rk) Social History Tobacco [...] 06/16/2022 Office Visit Cardiology Gianna Lorenzana PA [facility] er Cardiology Dept [place], [place] [address] (Wo rk) Scheduled Procedures Name [...] filedocumented in this encounter Care Teams Senior Dot Net Developer Relationship Specialty Start Date End Date Pricila Geller APRN PCP - General Family Medicine 11/24/18 [address] [facility] [place] [address] documented as of this encounter
--- OUTSIDE RECORDS SUMMARY | 2022-05-20 07:39 | XMS_ITS | Encounter Summary ---
:1955 Author Organization [facility] [place] [address] Care Team Providers Name Role Phone Pricila Geller APRN Primary Care Provider Encounter Details Date Type Department Care Team Description 06/26/2019 Telephone Care Management Beverley Lucia, [place] [address] Social History Tobacco Use Types Packs/Day [...] this encounter Miscellaneous Notes Telephone Encounter - Beverley Lucia RN - 06/26/2019 9:06 AM EDT Continuing Flooring Machine Operator: Telephone call to generally follow-up and assess clinical status since apptwith Dr. You, per her notation: Plan: Patient Instructions 1. Referral to electrophysiology for aflutter ablation consideration 2. We will run Entresto through your pharmacy and call you with the cost 3. Check lipids on Tuesday 4. Keep me in the loop about your hip issues Left a message requesting return telephone call. Believes the medication is going well. No symptoms. Some itches - not really sure. Different places.Otherwise, he does garden so he is keeping watch. VS: I haven't been but I will. It has been so consistent. He will check it. PLAN: Dr. You -- to confirm his lab work for Lexie Risk Profile results are where she wants. He shares next week - they are Going to [facility], we are both Buddist, and visit together. documented in this encounter Plan of Treatment Upcoming Encounters Date Type Specialty Care Team Description 06/16/2022 Laboratory Appointment Lab 06/16/2022 Office Visit Cardiology Gianna Lorenzana PA [facility] Dr Cardiology Dept [place], [place] [address] (Wo rk) Scheduled Procedures Name [...] Facing Tad A, Understanding Action Plan [facility] Note: Formatting of this note might be d ifferent from the original. Maintain 100% adherence to Entresto twic e daily regimen documented as of this encounter Visit Diagnoses Not on filedocumented in this encounter Care Teams Compliance Associate Relationship Specialty Start Date End Date Pricila Geller APRN PCP - General Family Medicine 11/24/18 [address] [place] [address] documented as of this encounter
--- OUTSIDE RECORDS SUMMARY | 2022-05-20 07:39 | XMS_ITS | Encounter Summary ---
:1955 Author Organization [facility] [place] [address] Care Team Providers Name Role Phone Pricila Geller JOELLE Primary Care Provider Encounter Details Date Type Department Care Team Description 12/07/2019 Laboratory Appointment Lab [facility] [place] [id number] Social History Tobacco Use Types Packs/Day Years [...] 06/16/2022 Office Visit Cardiology Gianna Lorenzana PA [facility] Cardiology Dept [place], [place] [address] (Wo rk) Scheduled Procedures Name [...] Date/Time Associated Diagnosis Comme nts HC PROBNP STAT 12/07/2019 9:32 AM Chronic systolic Resul ts for this EST heart failure procedure are in the results section. HC VENIPUNCTURE STAT 12/07/2019 9:32 AM Chronic systolic Re sults for this EST heart failure procedure are in the results section. documented in this encounter Results (ABNORMAL) pro-Brain Natriuretic Peptide (12/07/2019 9:32 AM EST) athologist Signature ProBNP 539 (H) <=125 pg/mL [facility] Specimen Anatomical Collection Method Collection Time Receive d Time (Source) Location / / Volume Laterality Blood specimen 12/07/2019 9:32 AM 020 9:52 (specimen) EST AM EST Resulting Agency Comment Spec In Lab Lali Whelan MD CHEMISTRY ORDERABLES Performing Organization Address City/State/ZIP [place] [address] (ABNORMAL) Basic Metabolic Panel (non-fasting) (12/07/2019 9:32 AM EST) athologist Signature Glucose Lvl 81 65 - 199 [facility] mg/dL [facility] Comment: Diabetes: >=200 mg/dL plus symp toms BUN 48 (H) 10 - 20 mg/dL [facility] Creatinine 2.39 (H) 0.80 - 1.50 mg/dL [facility] Sodium 137 135 - 145 mmol/L [facility] Potassium 4.5 3.5 - 5.0 mmol/L [facility] Comment: Please note: ??Patients with WBC >100,00 0 may have falsely elevated Potassium levels. ??For accurate Potassium quantif ication in these patients send serum separator tube (gold top) for subsequent determinations. ??Contact the Clinical Chemistry Laboratory if there are any qu estions. Chloride 99 98 - 107 mmol/L [facility] CO2 24 22 - 31 mmol/L [facility] Anion Gap 14 5 - 15 mmol/L [facility] Calcium 10.1 8.5 - 10.5 mg/dL [facility] Estimated GFR 27 (L) >=60 mL/min/1.73 m?? [facility] Comment: The eGFR was calculated using the CKD-EP I equation. As with all creatinine based estimates of kidney function, eGFR values calculated with the CKD-EPI equation are not accurate in patients wi th acute kidney failure, extremes of body mass or the acutely ill. [email or web address] eGFR 32 (L) >=60 mL/min/1.73 m?? [facility] Comment: The eGFR was calculated using the CKD-EP I equation. As with all creatinine based estimates of kidney function, eGFR values calculated with the CKD-EPI equation are not accurate in patients wi th acute kidney failure, extremes of body mass or the acutely ill. [email or web address].comnkf Specimen Anatomical Collection Method Collection Time Receive d Time (Source) Location / / Volume Laterality Blood specimen 12/07/2019 9:32 AM 020 9:52 (specimen) EST AM EST Resulting Agency Comment Spec In Lab Lali Whelan MD CHEMISTRY ORDERABLES Performing Organization Address City/State/ZIP [place] [address] documented in this encounter Visit Diagnoses Diagnosis Chronic systolic heart failure documented in this encounter Care Teams Bell Clerk Relationship Specialty Start Date End Date Pricila Geller APRN PCP - General Family Medicine 11/24/18 [address] [place] [address] documented as of this encounter
--- OUTSIDE RECORDS SUMMARY | 2022-05-20 07:39 | XMS_ITS | Encounter Summary ---
:1955 Author Organization [facility] [place] [address] Care Team Providers Name Role Phone Pricila Geller APRN Primary Care Provider Encounter Details Date Type Department Care Team Description 02/11/2020 Refill Cardiology at [facility] Lali Vu, [facility] [place] [address] [facility] [phone] [place], [place] [address] (Wo rk) Social History Tobacco [...] Gianna Lorenzana PA [facility] er Cardiology Dept [place], [place] [address] (Wo rk) Scheduled Procedures Name [...] on filedocumented in this encounter Care Teams Aluminum Shingle Roofer Relationship Specialty Start Date End Date Pricila Geller APRN PCP - General Family Medicine 11/24/18 [address] [facility] [place] [address] documented as of this encounter
--- OUTSIDE RECORDS SUMMARY | 2022-05-20 07:40 | XMS_ITS | Encounter Summary ---
:1955 [place] [address] Care Team Providers Name Role Phone None Primary Care Provider Unavailable Encounter Details Date Type Department Care Team Description 09/22/2017 [facility] [place] [address] Cardiology [phone] [place] [id number] (Wo rk) Social History Tobacco Use Types [...] 81 mg Tablet, Take 81 mg by mouth 30 tablet 3 09/08 Chewable daily. atorvastatin (LIPITOR) 80 Take 1 tablet by 90 tablet 3 08/2106/15/2019 mg Tablet mouth every evening. meTOPROLOL succinate Take 1 tablet by 30 tablet 12 7 06/15/2019 (TOPROL-XL) 100 mg Tablet mouth daily. Sustained Release 24 hr torsemide (DEMADEX) 20 mg Take 2 tablets by 30 tablet 3 02/15/2020 Tablet mouth daily. warfarin (COUMADIN) 7.5 Take 1 tablet by 30 tablet 3 201601/22/2019 mg Tablet mouth daily. losartan (COZAAR) 100 mg Take 0.5 tablets by 90 tablet 3 06/15/2019 Tablet mouth daily. documented as of this encounter Plan of Treatment Upcoming Encounters Date Type Specialty Care Team Description 06/16/2022 Laboratory Appointment Lab 06/16/2022 Office Visit Cardiology Gianna Lorenzana PA [facility] er Cardiology Dept [place], [place] [address] (Wo rk) Scheduled Procedures Name [...] Associated Diagnosis Comme nts FILM LIBRARY Routine 09/22/2017 12:00 AM Results for this STORAGE ONLY DX EDT procedure ar e in CHEST the results section. documented in this encounter Results Film Library- Storage Only DX Chest (09/22/2017 12:00 AM EDT) Specimen (Source) Anatomical Location Collection Method / Collectio n Time Received Time / Laterality Volume Narrative LAURITA - 09/22/2017 8:20 PM EDT This exam is for storage only and is aut o-finalizing. Junito Apodaca MD IMG FILM LIBRARY ORDERABLES Performing Organization Address City/State/ZIP Code Phon e Number [place], [place] documented in this encounter Visit Diagnoses Not on filedocumented in this encounter Care Teams Spooling Supervisor Relationship Specialty Start Date End Date None PCP - General 08/30/17 11/23/18 None documented as of this encounter
--- OUTSIDE RECORDS SUMMARY | 2022-05-20 07:40 | XMS_ITS | Encounter Summary ---
:1955 Author Organization [facility] [place] [address] Care Team Providers Name Role Phone None Primary Care Provider Unavailable Reason for Visit Reason Onset Date Comments Other 09/12/2017 Encounter Details Date Type Department Care Team Description 09/12/2017 Telephone Neurology at [facility] [place] [address] Social History Tobacco Use Types Packs/Day [...] this encounter Miscellaneous Notes Telephone Encounter - Karina Rincon RN - 09/30/2017 10:20 AM EST Patient returned call when he received the letter in the mail. Reviewed questions of post hospital visit follow-up call with patients and answers are as follows: He had any new neurological symptoms since you have been home from the hospital patient's answer is no. However he mentions he was admitted to [facility] for 2 days about 2 weeks after his discharge for which he called his body was filling up with fluid and he was having difficulty breathing. He is home now and feeling much better. Next question: having had any trouble getting or taking her medications? Patient answer: no. Next question: Having had any new symptoms since she started the medications? Answer is no. Next question: Had any bleeding bruising constipation or other side effects? Answer is no. Patient is not scheduled for neurology follow-up he is getting outpatient occupational therapy for his hand as well as he has started cardiac rehab. Patient states he has not fallen since he has been home. He is not using a walker or cane or any other assistive devices to get around the home and is get ting around okay. Patient has had a chance to look at the information given about his stroke and he feels good that he and his family have all the information that they need. He was happy with the carethat he received in the hospital. Patient is familiar with the 5 signs of stroke he does have an action plan and knows when he should call 911 should he have any of the symptoms. Patient was informed that he can call if he has any questions. Telephone Encounter - Emilee Bagley - 09/15/2017 10:58 AM EDT Caller: Cong Best time to reach caller: Anytime but he has difficulty getting to phone before it stops ringing. Before 2:30pm - Informed caller that nurse will call back by the end of the day Best number to reach caller: [phone] Reason for call: patient returned Karime S call. He says everything is going well. It is difficult for him to get to the phone but he will keep trying to call back Telephone Encounter - Cindy Sawant RN - 09/12/2017 6:14 PM EDT Neurology Discharge 7 day post discharge follow up Call placed to pt 09/13/2017 9:34, message left on voicemail requesting call back Call placed to pt 09/20/2017 10:04, message left on voicemail requesting call back Call placed to pt 09/21/2017 4:20, message left on voicemail requesting call back. Pt instructed to have service secretary page nurse when he returns call Will also send unable to contact letter Person providing information: Discharge Diagnosis: ??? Acute systolic congestive heart failure ? Atrial fibrillation ? Stroke ? Right hemispheric, left hand/arm symptoms. Presumably cardioemoblic in patient with valvular afib who had discontinued warfarin. Valvular disease ? Aneurysm of aortic arch ? Noted on echo at [facility] 5.3cm (08/30/2017) Health Status: (Comprehension of reason for hospitalization) Have you had any new neurologic symptoms since you have been home from the hospital? Medication Reconciliation: Current Outpatient Prescriptions Medication Sig Dispense Refill ??? aspirin 81 mg Tablet, Chewable Take 81 mg by mouth daily. 30 tablet 3 ??? atorvastatin (LIPITOR) 80 mg Tablet Take 1 tablet by mouth every evening. 90 tablet 3 ??? meTOPROLOL succinate (TOPROL-XL) 100 mg Tablet Sustained Release 24 hr Take 1 tablet by mouth daily. 30 tablet 12 ??? torsemide (DEMADEX) 20 mg Tablet Take 2 tablets by mouth daily. 30 tablet 3 ??? warfarin (COUMADIN) 7.5 mg Tablet Take 1 tablet by mouth daily. 30 tablet 3 ??? losartan (COZAAR) 100 mg Tablet Take 0.5 tablets by mouth daily. 90 tablet 3 No current facility-administered medications for this visit. New Medication started: Yes (Explain): See Below aspirin 81 mg Chew Take 81 mg by mouth daily. ? atorvastatin 80 mg Tab Commonly known as: LIPITOR Take 1 tablet by mouth every evening. ? losartan 100 mg Tab Commonly known as: COZAAR Take 0.5 tablets by mouth daily. ? meTOPROLOL succinate 100 mg Tablet sr Commonly known as: TOPROL-XL Take 1 tablet by mouth daily. ? torsemide 20 mg Tab Commonly known as: DEMADEX Take 2 tablets by mouth daily. ? warfarin 7.5 mg Tab Commonly known as: COUMADIN Take 1 tablet by mouth daily. ?? Discontinued Medication: No Medications with dose or instruction changes: No Adherence Issues: (financial/transportation): Have you had any trouble getting or taking your medications (especially Plavix, Coumadin, Lovenox, or other anticoagulants)? Have you had any new symptoms since you started the medications? Have you had any bleeding, bruising, constipation, or other side effects? Clarify Appointments: Assure that patient understands reason for followup appointments and contact information PCP: Specialist: No No need for neurology follow up, can follow up with PCP Diagnostic (lab/radiology) Are coordination of discharge services (home care/DME/meals on wheels, example) needed? Yes (Explain): Outpatient rehab Occupational therapy Stroke Support Group Have you fallen since you have been home? If you have fallen, did you get hurt when you fell? Are you using a walker, cane, ski poles, or other tools to help you move around inside and outside your home? Is this new? Questions about your hospital stay Did you have a chance to look at the information you were given about your stroke/TIA? Do you feel confident that you and your family have the information you need now that you are home? Were you happy with the care you got in the hospital? For Smokers: Have you smoked since you got home from the hospital? Would you like information on help to quit smoking? Are you familiar with the 5 signs of a stroke? You should know every sign even if you did not have all the symptoms yourself. ??? Sudden NUMBNESS or weakness of face, arm, or leg, especially on one side of the body ??? Sudden CONFUSION, trouble speaking or understanding speech ??? Sudden TROUBLE SEEING in one or both eyes ??? Sudden TROUBLE WALKING, dizziness, loss of balance or coordination ??? Sudden SEVERE HEADACHE with no known cause If you or someone else shows any of these symptoms, immediately call -- or emergency medical services. Action Plan - assure patient understands action plan ??? What to do if emergent symptoms occur discussed ??? What to do if urgent symptoms occur discussed ??? Plan ahead for your office visit by bringing in your written questions. ??? Bring list of all medications or bring in actual medications to each office visit. It is important that you also have an opportunity to ask questions that have come up since you have been home. It may be helpful for you keep a notebook that you bring to your appointments so you can write down your questions and the answers that you are given. You may have questions about activities, if it is safe for you to drive, or if you should return to work. documented in this encounter Plan of Treatment Upcoming Encounters Date Type Specialty Care Team Description 06/16/2022 Laboratory Appointment Lab 06/16/2022 Office Visit Cardiology Gianna Lorenzana PA [facility] Cardiology Dept [place], [place] [address] (Wo rk) Scheduled Procedures Name Priority Associated Diagnoses Date/Time EGD, UPPER GI ENDOSCOPY Chronic cough Heartburn RUQ pain Fecal urgency Dysphagia, unspecifi ed type History of hepatitis C COLONOSCOPY, DIAGNOSTIC Chronic cough Heartburn RUQ pain Fecal urgency Dysphagia, unspecifi ed type History of hepatitis C documented as of this encounter Visit Diagnoses Not on filedocumented in this encounter Care Teams Floor Plan Adjuster Relationship Specialty Start Date End Date None PCP - General 08/30/17 11/23/18 None documented as of this encounter
--- OUTSIDE RECORDS SUMMARY | 2022-05-20 07:40 | XMS_ITS | Encounter Summary ---
:1955 Author Organization [facility] [place] [address] Care Team Providers Name Role Phone Pricila Geller APRN Primary Care Provider Reason for Referral Diagnostic Test (Routine) - Closed Specialty Diagnoses / Procedures Referred By Contact Refer red To Contact Radiology Diagnoses Thoracic aortic aneurysm without rupture Catina Nicholson APRN [facility] Rad Ct Scan Procedures CT Angiogram Chest Abdomen Pelvis With Contrast [facility] [place] [address] [place] [address] Referral ID Status Reason Start Date Expiration Date Visits V isits Requested Authorized [id number] Closed Specialty 01/22/2019 01/22/2020 1 1 Service Requested Reason for Visit Diagnostic Test (Routine) - Closed Specialty Diagnoses / Procedures Referred By Contact Refer red To Contact Radiology Diagnoses Thoracic aortic aneurysm without rupture Catina Nicholson APRN [facility] Rad Ct Scan Procedures CT Angiogram Chest Abdomen Pelvis With Contrast [facility] [place] [address] [place] [address] Referral ID Status Reason Start Date Expiration Date Visits V isits Requested Authorized [id number] Closed Specialty 01/22/2019 01/22/2020 1 1 Service Requested Encounter Details Date Type Department Care Team Description 04/02/[address] Scan at [facility] Catina Nicholson, Thoracic aortic [facility] HARDWARE ENGINEER aneurysm without Drive [facility] [place] [address] VASCULAR SURGERY [phone] [place], [place] [address] Social History Tobacco Use Types [...] mouth 30 tablet 3 09/08 Chewable daily. ledipasvir-sofosbuvir Take 1 tablet by 0 03/21/20 19 06/06/2019 90-400 mg Tablet mouth daily. [id number] apixaban 5 mg Take 5 mg by mouth 2 0 04/23/2019 tablet times daily. atorvastatin (LIPITOR) 80 Take 1 tablet by 90 tablet 3 08/2106/15/2019 mg Tablet mouth every evening. meTOPROLOL succinate Take 1 tablet by 30 tablet 12 7 06/15/2019 (TOPROL-XL) 100 mg Tablet mouth daily. Sustained Release 24 hr torsemide (DEMADEX) 20 mg Take 2 tablets by 30 tablet 3 02/15/2020 Tablet mouth daily. losartan (COZAAR) 100 mg Take 0.5 tablets by 90 tablet 3 06/15/2019 Tablet mouth daily. documented as of this encounter Plan of Treatment Upcoming Encounters Date Type Specialty Care Team Description 06/16/2022 Laboratory Appointment Lab 06/16/2022 Office Visit Cardiology Gianna Lorenzana PA [facility] Cardiology Dept [place], [place] [address] (Wo rk) [...] Name Priority Date/Time Associated Diagnosis Comme nts CT ANGIOGRAM CHEST Routine 04/02/2019 3:43 PM Thoracic aortic Results for this ABDOMEN PELVIS W EDT aneurysm without procedu re are in CONTRAST rupture the results section. documented in this encounter Results CT Angiogram Chest Abdomen Pelvis With Contrast (04/02/2019 3:43 PM EDT) Anatomical Region Laterality Modality Abdomen, Chest Computed Tomography Specimen (Source) Anatomical Location Collection Method / Collectio n Time Received Time / Laterality Volume Impressions 04/03/2019 9:14 AM EDT 1. ??Cardiomegaly, with severely dilated left atrium. 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 Suture material around the proximal ascending aorta suggests root/a nnulus replacement. Just distal to this, ascending aortic aneurysm measures 47 mm maximally. 2. ??Fusiform dilatation of the brachioc ephalic trunk measuring 26 mm, ectasia of the abdominal aorta measuring 29 mm, and 16mm ectasia of the distal left common iliac artery. 3. ??Scarring and surgical clips in the right inguinal region superficial to the common femoral vasculature. 4. ??Incidental 5 mm nonobstructing left lower pole renal calculus. Thank you for letting us participate in the care of this patient. For questions regarding this report, please contact e number below. ? Narrative 04/03/2019 9:14 AM EDT EXAMINATION: CT ANGIOGRAM CHEST ABDOMEN PELVIS W CONTRAST CLINICAL HISTORY: ~ 4.0 cm aortic arch a neurysm TECHNIQUE: Helical CT angiogram of the c hest, abdomen and pelvis was performed following intravenous administration of contrast. Administered 56.0 ml of OMNIPAQUE 350.00 mg/ml. 3-D images were generated on an independent workstation. COMPARISON: None FINDINGS: VASCULAR FINDINGS Heart: Globally enlarged, most particula rly severe dilatation of the left atrium. There is streak artifact from pr osthetic mitral valve, tricuspid valve repair, and an aortic valve. Coronary ar quentin calcifications are present. Normal origin of the right coronary artery, how ever it has a looping a tortuous course. Thoracic aorta: Graft/suture material is noted external to the thoracic aorta just above the expected location of the annulus. Extensive repair is indeterminate. There is focal fusiform d ilatation of the proximal ascending aorta, most notably along the medial wal l, measuring 47 x 42 mm maximally. Great vessel origins: Fusiform dilatatio n of the brachiocephalic trunk, measuring 26 mm just beyond the origin a nd 20 mm within 1 cm the origin. Widely patent left common carotid and subclavia n arteries. Pulmonary arteries: Inadequately opacifi ed to assess. Abdominal aorta: Mildly ectatic, measuri ng 29 mm maximally. Celiac axis: Widely patent. SMA: Widely patent. Right renal artery: Moderate calcified a therosclerosis inferiorly resulting in mild stenosis. Left renal artery: No stenosis. EMILY: Moderate stenosis at origin. Right: Common iliac artery: Widely patent. External iliac artery: Widely patent. Internal iliac artery: Mild stenosis at origin. Common femoral artery: Patent, high bifu rcation. Left: Common iliac artery: 16mm ectasia just p roximal to the bifurcation. External iliac artery: Widely patent. Internal iliac artery: Widely patent. Common femoral artery: Widely patent. NON-VASCULAR FINDINGS Lungs and large airways: Mild bibasilar atelectasis. Linear and reticular subpleural markings are present in the r ight middle lobe anteriorly which may be scarring. No focal airspace consolidatio n. Pleura: No effusion. Lymph nodes: No enlarged lymph nodes. Mediastinum and anusha: Normal. Liver: Normal. Bile ducts: Nondilated. Gallbladder: No calcified gallstones. No rmal caliber wall. Pancreas: Normal. Spleen: Normal. Kidneys: Right renal cortex is mildly th inned. There are 3 less than 1 cm low-attenuation lesions that are most li trish cysts. No collecting system dilatation or calculi. There is a 5 mm n onobstructing left lower pole renal calculus. There is a left upper pole sim ple cyst. Adrenals: Normal. Urinary Bladder: Normal. Lymph Nodes: No enlarged lymph nodes. Bowel: Nondilated, no wall thickening. ? ? Peritoneum and mesentery: No ascites, fr ee air, or loculated fluid collection. No mesenteric inflammation. There are surgical clips and scarring in the right inguinal region superficial to the common femoral proximal superfici al femoral vasculature. Osseous structures: There is a levoconve x lumbar scoliosis with associated degenerative disc disease and hypertroph ic, degenerative facet arthropathy. No specific lytic or sclerotic osseous lesi on. Procedure Note Grace Buitrago MD - 04/03/2019Formatt ing of this note might be different from the original. EXAMINATION: CT ANGIOGRAM CHEST ABDOMEN PELVIS W CONTRAST CLINICAL HISTORY: ~ 4.0 cm aortic arch a neurysm TECHNIQUE: Helical CT angiogram of the c hest, abdomen and pelvis was performed following intravenous administration of contrast. Administered 56.0 ml of OMNIPAQUE 350.00 mg/ml. 3-D images were generated on an independent workstation. COMPARISON: None FINDINGS: VASCULAR FINDINGS Heart: Globally enlarged, most particula rly severe dilatation of the left atrium. There is streak artifact from pr osthetic mitral valve, tricuspid valve repair, and an aortic valve. Coronary ar quentin calcifications are present. Normal origin of the right coronary artery, how ever it has a looping a tortuous course. Thoracic aorta: Graft/suture material is noted external to the thoracic aorta just above the expected location of the annulus. Extensive repair is indeterminate. There is focal fusiform d ilatation of the proximal ascending aorta, most notably along the medial wal l, measuring 47 x 42 mm maximally. Great vessel origins: Fusiform dilatatio n of the brachiocephalic trunk, measuring 26 mm just beyond the origin a nd 20 mm within 1 cm the origin. Widely patent left common carotid and subclavia n arteries. Pulmonary arteries: Inadequately opacifi ed to assess. Abdominal aorta: Mildly ectatic, measuri ng 29 mm maximally. Celiac axis: Widely patent. SMA: Widely patent. Right renal artery: Moderate calcified a therosclerosis inferiorly resulting in mild stenosis. Left renal artery: No stenosis. EMILY: Moderate stenosis at origin. Right: Common iliac artery: Widely patent. External iliac artery: Widely patent. Internal iliac artery: Mild stenosis at origin. Common femoral artery: Patent, high bifu rcation. Left: Common iliac artery: 16mm ectasia just p roximal to the bifurcation. External iliac artery: Widely patent. Internal iliac artery: Widely patent. Common femoral artery: Widely patent. NON-VASCULAR FINDINGS Lungs and large airways: Mild bibasilar atelectasis. Linear and reticular subpleural markings are present in the r ight middle lobe anteriorly which may be scarring. No focal airspace consolidatio n. Pleura: No effusion. Lymph nodes: No enlarged lymph nodes. Mediastinum and anusha: Normal. Liver: Normal. Bile ducts: Nondilated. Gallbladder: No calcified gallstones. No rmal caliber wall. Pancreas: Normal. Spleen: Normal. Kidneys: Right renal cortex is mildly th inned. There are 3 less than 1 cm low-attenuation lesions that are most li trish cysts. No collecting system dilatation or calculi. There is a 5 mm n onobstructing left lower pole renal calculus. There is a left upper pole sim ple cyst. Adrenals: Normal. Urinary Bladder: Normal. Lymph Nodes: No enlarged lymph nodes. Bowel: Nondilated, no wall thickening. Peritoneum and mesentery: No ascites, fr ee air, or loculated fluid collection. No mesenteric inflammation. There are surgical clips and scarring in the right inguinal region superficial to the common femoral proximal superfici al femoral vasculature. Osseous structures: There is a levoconve x lumbar scoliosis with associated degenerative disc disease and hypertroph ic, degenerative facet arthropathy. No specific lytic or sclerotic osseous lesi on. IMPRESSION 1. Cardiomegaly, with severely dilated l eft atrium. 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 Suture material around the proximal ascending aorta suggests root/a nnulus replacement. Just distal to this, ascending aortic aneurysm measures 47 mm maximally. 2. Fusiform dilatation of the brachiocep halic trunk measuring 26 mm, ectasia of the abdominal aorta measuring 29 mm, and 16mm ectasia of the distal left common iliac artery. 3. Scarring and surgical clips in the ri ght inguinal region superficial to the common femoral vasculature. 4. Incidental 5 mm nonobstructing left l ower pole renal calculus. Thank you for letting us participate in the care of this patient. For questions regarding this report, please contact e number below. Catina Nicholson HARDWARE ENGINEER IMG CT ORDERABLES documented in this encounter Visit Diagnoses Diagnosis Thoracic aortic aneurysm without rupture Thoracic aneurysm without mention of rup ture documented in this encounter Administered Medications Inactive Administered Medications - up to 3 most recent administrations Medication Order MAR Action Action Date Dose Rate Site iohexol (OMNIPAQUE) 350 mg/mL Given 04/02/2019 3:40 PM EDT 56 mL s solution 0-200 mL 0-200 mL, Intravenous, ONCE PRN, 1 dose, Starting on Tue04/02/19 at 1539, Until Tue04/02/19 at 1540, Per Protocol, Warning Vesicant/Irritant Medication , Radiology Contrast, Routine documented in this encounter Care Teams Oil Recovery Operator Relationship Specialty Start Date End Date Pricila Geller APRN PCP - General Family Medicine 11/24/18 [place] [id number] documented as of this encounter
--- OUTSIDE RECORDS SUMMARY | 2022-05-20 07:40 | XMS_ITS | Encounter Summary ---
:1955 Author Organization [facility] Address [address] [place] [address] Care Team Providers Name Role Phone Pricila Geller APRN Primary Care Provider Reason for Visit Reason Onset Date Comments Questions 03/19/2019 medication managemen t for dental procedure(s) Encounter Details Date Type Department Care Team Description 03/19/2019 Telephone Cardiology at [facility] Prisca Russ, Questions ([facility] RN managemen t for dental Drive procedure(s)) [place] [phone] Social History Tobacco Use Types Packs/Day [...] Telephone Encounter - Prisca Russ, RN - 03/19/2019 2:56 PM EDT Pt left 2 message on the nurse triage line requesting advice in regards to an upcomming dental procedure and the need to hold his Eliquis and to take prophylactic antibiotic. Has Hx of valve replacements. Pt contacted and encouraged to call his primary Silk Folder: Pedro Jerez MD to get the answer to his questions. Cecilia because he has not been seen in the HF clinic yet and he needs to see the dentist today. Call placed to Edwin at Dr Jerez's office who reports that she will pass the message on to Dr Jerez's nurse who will follow up and get back to the pt. documented in this encounter Plan of Treatment Upcoming Encounters Date Type Specialty Care Team Description 06/16/2022 Laboratory Appointment Lab 06/16/2022 Office Visit Cardiology Gianna Lorenzana PA [facility] er Dr Cardiology Dept [place], [place] [address] (Wo rk) Scheduled Procedures Name Priority Associated Diagnoses Date/Time EGD, UPPER GI ENDOSCOPY Chronic cough Heartburn RUQ pain Fecal urgency Dysphagia, unspecifi ed type History of hepatitis C COLONOSCOPY, DIAGNOSTIC Chronic cough Heartburn RUQ pain Fecal urgency Dysphagia, unspecifi ed type History of hepatitis C documented as of this encounter Visit Diagnoses Not on filedocumented in this encounter Care Teams Meat Cutter Relationship Specialty Start Date End Date Pricila Geller APRN PCP - General Family Medicine 11/24/18 [place] [id number] documented as of this encounter
--- OUTSIDE RECORDS SUMMARY | 2022-05-20 07:40 | XMS_ITS | Encounter Summary ---
:1955 Author Organization [facility] [place] [address] Care Team Providers Name Role Phone Pricila Geller APRN Primary Care Provider Reason for Referral Diagnostic Test (Routine) - Closed Specialty Diagnoses / Procedures Referred By Contact Refer red To Contact Diagnoses Chronic systolic heart failure Lali Vu, Procedures [place] [address] Referral ID Status Reason Start Date Expiration Date Visits V isits Requested Authorized [id number] Closed Specialty 04/02/2019 04/01/2020 1 1 Service Requested Reason for Visit Diagnostic Test (Routine) - Closed Specialty Diagnoses / Procedures Referred By Contact Refer red To Contact Diagnoses Chronic systolic heart failure Lali Vu Procedures [place] [address] Referral ID Status Reason Start Date Expiration Date Visits V isits Requested Authorized [id number] Closed Specialty 04/02/2019 04/01/2020 1 1 Service Requested Encounter Details Date Type Department Care Team Description 04/05/2019 Hospital Encounter Non-Invasive Armani Vu systolic Cardiology Lab Magali Garland MD heart failure [place], [place] [address] [phone] [place], [place] (Work) [address] [phone] Social History Tobacco Use Types Packs/Day Years [...] mouth 30 tablet 3 09/08 Chewable daily. spironolactone (ALDACTONE) Take 25 mg by mouth 0 04/04/2019 02/08/2020 25 mg Tablet daily. ledipasvir-sofosbuvir Take 1 tablet by 0 03/21/20 19 06/06/2019 90-400 mg Tablet mouth daily. [id number] apixaban 5 mg Take 5 mg by mouth 0 04/23/2019 tablet 2 times daily. atorvastatin (LIPITOR) 80 Take 1 [...] [facility] [place], [place] [address] (Wo rk) Scheduled Procedures Name Priority Associated Diagnoses Date/Time EGD, UPPER GI ENDOSCOPY Chronic cough Heartburn RUQ pain Fecal urgency Dysphagia, unspecifi ed type History of hepatitis C COLONOSCOPY, DIAGNOSTIC Chronic cough Heartburn RUQ pain Fecal urgency Dysphagia, unspecifi ed type History of hepatitis C documented as of this encounter Procedures Procedure Name Priority Date/Time Associated Diagnosis Comme nts ZISTANTONTCH Routine 04/05/2019 10:59 AM Chronic systolic Resu lts for this EDT heart failure procedure are in the results section . documented in this encounter Results Ziopatch (04/05/2019 10:59 AM EDT) Specimen (Source) Anatomical Location Collection Method / Collectio n Time Received Time / Laterality Volume Narrative Alfredo Washburn MD - 04/23/2019 8:22 A M EDT [facility] ? Zio Patch? Ambulatory Cardiac Event Monitor Report Duration of recording ? 11 days 11 hours (04/05/2019 until 04/16/2019) Summary Data Atrial fibrillation was present for the entire duration of the recording The average heart rate was 82 bpm, with a range of 41 bpm to 156 bpm Ectopic beats 0 atrial premature beats (APC? s) rare ventricular premature beats (VPC's ); ventricular bigeminy was also seen There was 1 pause, this was 3.1 seconds at 1 pm on 04/06/2019 There were 2 episodes of wide complex ta chycardia, average of 127 bpm The fastest was 6 beats, 125 bpm The longest was 9 beats at an average of 129 bpm These appear to be slightly irregular an d likely represent aberrant conduction of atrial arrhythmias Triggered and Patient Diary Events There were 6 triggered and 4 patient tirso ry events: The patient triggered events correlate w ith atrial flutter and ventricular rates that range from 68 bpm to 113 bpm The patient diary entries for 'short of breath, skipped beats, anxious' correlate with atrial flutter and ventri cular rate that range from 73 bpm to 97 bpm Conclusion(s): ?? 1) The predominant rhythm was atrial flu tter with reasonable ventricular rate control 2) Patient symptoms appear to correlate with atrial flutter and reasonable ventricular rates Lali Whelan MD CARDIAC SERVICES ORDERABLE S documented in this encounter Visit Diagnoses Diagnosis Chronic systolic heart failure documented in this encounter Care Teams Waterfront Director Relationship Specialty Start Date End Date Pricila Geller APRN PCP - General Family Medicine 11/24/18 [address] [place] [address] documented as of this encounter
--- OUTSIDE RECORDS SUMMARY | 2022-05-20 07:40 | XMS_ITS | Encounter Summary ---
:1955 Author Organization [facility] [place] [address] Care Team Providers Name Role Phone DuyenPricila JOELLE Primary Care Provider Encounter Details Date Type Department Care Team Description 01/01/2019 Telephone Cardiology at [facility] Katherine Bucio APRN [place] [address] [place] [address] [phone] (Wo rk) Social History Tobacco Use Types [...] this encounter Miscellaneous Notes Telephone Encounter - Katherine Bucio APRN - 01/01/2019 9:41 AM EST 01/01/2019 Cong Khan Initial Contact Date: 01/01/2019 Initial contact time: 9:48 AM Consult Provider: Dr. Caro Patient Location: [facility] Past Medical History: Systolic heart failure Atrial fibrillation Mitral valve disease (s/p bioprosthetic valve replacement) Aortic valve disease (s/p bioprosthetic valve replacement) Cardio-embolic CVA Presenting Symptoms per OSH: 63 y.o. male with the above PMH who Presented to [facility] with a recurrent hematoma of the right iliopsoas. INR is 2.4. Coumadin is being held at this time. Dr. Sullivan consulting given that this is the patient's third bleed and was wondering if Cong Khan may benefit from a NOAC. [id number] 5-6 (age, HF, CVA, ?htn) Plan: Discussed case with Dr. Hinds and it was determined that Cong Khan is not a candidate for NOACsgiven his hx of valvular disease with bioprosthesis. Given his high [id number] score Dr. Sullivan encouraged to initiative Lovenox bridge when INR less than 2 if active bleeding is controlled. Recommended patient follow up with Dr. Jerez as an outpatient (his primary federal mediator) to further discuss his anticoagulation. I encouraged Dr. Caro to contact us if there is any change in symptoms, decision-making, or further need for guidance in management. - above recommendations were based on my discussion with Dr. Sullivan; I have not personally interviewed or examined this patient; I have not personally reviewed EKGs. Katherine Bucio APRN Cardiovascular Medicine Pager [phone] 01/01/2019 . documented in this encounter Plan of Treatment Upcoming Encounters Date Type Specialty Care Team Description 06/16/2022 Laboratory Appointment Lab 06/16/2022 Office Visit Cardiology Gianna Lorenzana PA [facility] Cardiology Dept [place], [place] [address] (Wo rk) Scheduled Procedures Name Priority Associated Diagnoses Date/Time EGD, UPPER GI ENDOSCOPY Chronic cough Heartburn RUQ pain Fecal urgency Dysphagia, unspecifi ed type History of hepatitis C COLONOSCOPY, DIAGNOSTIC Chronic cough Heartburn RUQ pain Fecal urgency Dysphagia, unspecifi ed type History of hepatitis C documented as of this encounter Visit Diagnoses Not on filedocumented in this encounter Care Teams Personal Financial Advisor Relationship Specialty Start Date End Date Pricila Geller APRN PCP - General Family Medicine 11/24/18 [address] [place] [address] documented as of this encounter
--- OUTSIDE RECORDS SUMMARY | 2022-05-20 07:40 | XMS_ITS | Encounter Summary ---
:1955 Author Organization [facility] [place] [address] Care Team Providers Name Role Phone Pricila Geller APRN Primary Care Provider Reason for Referral Consultation (Routine) - Closed Specialty Diagnoses / Procedures Referred By Contact Refer red To Contact Gastroenterology Diagnoses Chronic systolic heart failure Hepatology, Hep C Avelino Whelan [facility] Gastro 4l [place] [address] [place] [address] Fax: Referral ID Status Reason Start Date Expiration Date Visits V isits Requested Authorized [id number] Closed Consult, 04/02/2019 04/01/2020 1 1 Test & Treat Diagnostic Test (Routine) - Closed Specialty Diagnoses / Procedures Referred By Contact Refer red To Contact Diagnoses Chronic systolic heart failure Lali Vu Procedures [place] [address] Referral ID Status Reason Start Date Expiration Date Visits V isits Requested Authorized [id number] Closed Specialty 04/02/2019 04/01/2020 1 1 Service Requested Reason for Visit Consultation (Routine) - Closed Specialty Diagnoses / Procedures Referred By Contact Refer red To Contact Cardiology Diagnoses CHF Pedro Jerez MD [facility] Cardiology 4a Procedures Heart failure clinic [address] [facility] [address] [place] [address] [place] [id number] Referral ID Status Reason Start Date Expiration Date Visits V isits Requested Authorized [id number] Closed Consult, 03/03/2019 03/02/2020 1 1 Test & Treat Connection Center Encounter Details Date Type Department Care Team Description 04/02/2019 Office Visit Cardiology at [facility] Avelino Whelan, Ciro systolic [facility] Lali Gar[place] [address] [place] [address] [phone] (Wo rk) Social History Tobacco Use Types [...] Sign Reading Time Taken Comments Blood Pressure 107/74 04/02/2019 4:24 PM EDT Pulse 78 04/02/2019 4:24 PM EDT Temperature - - Respiratory Rate - - Oxygen Saturation 98% 04/02/2019 4:24 PM EDT Inhaled Oxygen Concentration - - Weight 72.6 kg (160 lb) 04/02/2019 4:24 PM EDT Height 175.3 cm (5' 9.02) 04/02/2019 4:24 PM EDT Body Mass Index 23.62 04/02/2019 4:24 PM EDT documented in this encounter Patient Instructions Patient InstructionsGilstraLali Michel MD - 04/02/2019 4:20 PM EDT 1. Go get your lab work done for the apixiban level at [facility]. We will call you withthe results. 2. We will get a Ziopatch to look for Afib and we will call you with the results of that. 3. Continue your metoprolol, losartan and spironolactone for now 4. Continue the 20mg of torsemide for now, trend your weight everyday as you are 5. With any issues/problems please call Carmella/Beverley at [phone] documented in this encounter Progress Notes Lali Vu MD - 04/02/2019 4:20 PM EDT Advanced [facility] Note Name: Cong Khan Date: 04/02/2019 Chief Complaint: HFrEF History of Present Illness Cong Khan is a 64 y.o. male with a past medical history of HFrEF who presents to the advanced heart disease clinic for to establish care. Admitted to [facility] in 09/06 at which point his EF was 31%, paradoxical septal motion, mod/severe LVH, severe LAE, mod reduced RV function. He has Afib/flutter w/ Zio from 02/05 showing Aflutter average rate of 87 with a range of 31-142. He has a h/o MVR, TV repair and AVR in 2013 in [place]. TTE 02/05 showed EF 30- 35%, bioAVR, mean gradient 19, bioMVR with pressure 1/2 time of 108, Peak 1.5, EOA 1.36. LA mildly dilated. RV normal size w/ mildly reduced function. PASP 15- 25. LVEDD 5.4cm. 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 Current med regimen includes metop 175mg QAM and 75mg qPM, losartan 50mg QD, sarah 25mg QD, torsemide 30mg PO QD, ASA and apixiban. He has a h/o ETOH abuse but stopped 4 year ago. Last seen in 03/[address] Jerez at [facility]. EF today is 38% up from 30-35% prior. RV function is mildly reduced. AoV mean gradient is 24mmHg andmitral gradient is 5mmHg. Overall no overt s/sx of HF. No orthopnea, PND or LE edema. Main concern is bleeding I/s/o apixiban.Seems to prefer the warfarin he was on before but had some kind of a spontaneous groin hematoma. He was switched to apixiban after this. Has had two superficial bleeding events since then which he found quite distressing. Review of Systems All other 12 point review of systems negative except as noted above. Past Medical History Patient Active Problem List Diagnosis ??? Acute systolic congestive heart failure Prior echo from [facility] 10/2015: EF 40-45%, mean aortic valve gradient 22mmHg [facility] [place] echo Aug 2017: EF 20-25%, DVI 0.35, ascending aorta 4.2cm, aortic arch 5.3cm Current echo [facility] 08/31/17:EF 31%, septum paradoxical motion (dys-synchrony present), [...] Valvular disease - mitral valve prolapse, repair ([place], [place]) 11/07/09: P2 resection, sliding annuloplasty, placement of #38 Future band. - [facility] 12/01/10 : mitral valve replacement with a #33 EPIC IC procedure, tricuspid valve repair with a #32 MC3 ring, MAZE - AVR 2013. ([facility]): no records available. ??? Aneurysm of aortic arch Noted on echo at [facility] 5.3cm (08/30/2017) ??? Hypertension ??? H/O mitral valve replacement with tissue graft ??? H/O aortic valve replacement with porcine valve Past Surgical History Past Surgical History: Procedure Laterality Date ??? AORTIC VALVE REPLACEMENT ??? GASTRIC FUNDOPLICATION ??? MITRAL VALVE REPLACEMENT ??? TOTAL HIP ARTHROPLASTY ??? TRICUSPID VALVULOPLASTY Medications Outpatient Medications Marked as Taking for the 5/13/19 encounter (Office Visit) with Lali Vu MD Medication Sig Dispense Refill ??? ledipasvir-sofosbuvir 90-400 mg Tablet Take 1 tablet by mouth daily. 0 ??? [id number] apixaban 5 mg tablet Take 5 mg by mouth 2 times daily. ??? aspirin [...] tablets by mouth daily. 90 tablet 3 Allergies No Known Allergies Social History TOB: Social History Tobacco Use Smoking Status Never Smoker Smokeless Tobacco Never Used ETOH: Social History Substance and Sexual Activity Alcohol Use No Comment: Former heavy daily user quit in 201304/02/2019 Illicits: Social History Substance and Sexual Activity Drug Use No Comment: Former cocaine user Family History Family History Problem Relation Age of Onset ??? Emphysema Mother ??? Hypertension Mother ??? Alcohol Abuse Father ??? Aneurysm Father ??? Hypertension Father ??? Substance Abuse Brother Physical Exam VS: Vitals: 04/02/19 1624 BP: 107/74 Pulse: 78 SpO2: 98% Weight: 72.6 kg (160 lb) Height: 175.3 cm (5' 9.02) GEN: NAD NECK: JVP <10 cmH20 COR: RRR w/ normal S1S2, no S3S4, 2/4 diastolic murmur at LLSB and 2/6 systolic murmur at LUSB PULM: Normal respiratory effort, no use of accessory muscles, CTAB ABD: Soft, NT/ND, no palpable masses, no e/o hepatosplenomegaly EXT: WWP w/ no sig edema, no clubbing or cyanosis SKIN: No rashes appreciated, no stasis dermatitis NEURO: AxOx3, not confused PSYCH: Appropriate mood/affect Labs Lab Results Component Value Date NA 139 04/02/2019 Lab Results Component Value Date K 4.3 04/02/2019 Lab Results Component Value Date CREATININE 1.48 04/02/2019 Relevant CardiacStudies I thoroughly reviewed the patient's relevant cardiovascular or imaging studies and the active management plan. ?? Assessment: Cong Khan is a 64 y.o. male with a past medical history of nonischemic HFrEF presents to the advanced heart disease clinic for to establish care. His EF has improved slightly from the last TTE at [facility]. He is on a good medical regimen and we will continue that for now. We will check a Zio to see his burden of Afib and check an apixiban level giventhe superficial bleeding that he is concerned about. Given his h/o stroke, he does need to be on AC. Plan: 1) Heart Failure Heart Failure Etiology & Functional Status Status HFrEF (systolic) Etiology Nonischemic (valvular) ACC/AHA Class C (clinical heart failure) NYHA functional class II - slight limitation of activity Volume Management Weight/Weight Change 160lbs Status in Clinic Euvolemic Current Diuretic Torsemide 20mg QD Neurohormonal Therapy Current Beta Efra Metoprolol 100mg QD Current ACEi/ARB/ARNI Losartan 100mg QD Current MRA N/A Electrophysiology Arrhythmias Afib w/ h/o stroke Anticoagulation Apixiban Devices (ICD/CUSTOMER ASSOCIATE) None, not indicated Summary of Plan Patient Instructions 1. Go get your lab work done for the apixiban level at [facility]. We will call you withthe results. 2. We will get a Ziopatch to look for Afib and we will call you with the results of that. 3. Continue your metoprolol, losartan and spironolactone for now 4. Continue the 20mg of torsemide for now, trend your weight everyday as you are 5. With any issues/problems please call Carmella/Beverley at [phone] This clinic visit lasted 45 minutes, of which 40 minutes were spent in direct discussion and counseling with the patient. Return to clinic: 3 months Lali You MD MPH [facility] Disease [facility] Cardiac Transplant Attending 04/02/2019, 7:34 PM documented in this encounter Plan of Treatment Upcoming Encounters Date Type Specialty Care Team Description 06/16/2022 Laboratory Appointment Lab 06/16/2022 Office Visit Cardiology Gianna Lorenzana PA [facility] Cardiology Dept [place], [place] [...] Schedule Diagnoses Referral to Outpatient Routine Chronic systolic Ordered: Gastroenterology Referral heart failure 04/02/2019 documented as of this encounter Results Ziopatch (04/05/2019 10:59 AM EDT) Specimen (Source) Anatomical Location Collection Method / Collectio n Time Received Time / Laterality Volume Narrative Alfredo Washburn MD - 04/23/2019 8:22 A M EDT [facility] ? Zio Patch? Ambulatory Cardiac Event [...] Lali Whelan MD CARDIAC SERVICES ORDERABLE S TSH (04/02/2019 1:57 PM EDT) athologist Signature TSH 1.09 0.27 - 4.20 [facility] mc[facility]/mL [facility] Specimen Anatomical Collection Method Collection Time Receive d Time (Source) Location / / Volume Laterality Blood specimen 04/02/2019 1:57 PM 019 2:09 (specimen) EDT PM EDT Resulting Agency Comment Spec In Lab Lali Whelan MD CHEMISTRY ORDERABLES Performing Organization Address City/[facility]/[place] [address] (ABNORMAL) pro-Brain Natriuretic Peptide (04/02/2019 1:57 PM EDT) athologist Signature ProBNP 1,150 (H) <=125 [facility] pg/mL [facility] Specimen Anatomical Collection Method Collection Time Receive d Time (Source) Location / / Volume Laterality Blood specimen 04/02/2019 1:57 PM 019 2:09 (specimen) EDT PM EDT Resulting Agency Comment Spec In Lab Lali Whelan MD CHEMISTRY ORDERABLES Performing Organization Address City/[facility]/ZIP [facility] [place] [address] (ABNORMAL) Basic Metabolic Panel (non-fasting) (04/02/2019 1:57 PM EDT) athologist Signature Glucose Lvl 71 65 - 199 [facility] mg/dL [facility] Comment: Diabetes: >=200 mg/dL plus symp toms BUN 33 (H) 10 - 20 mg/dL [facility] Creatinine 1.48 0.80 - 1.50 mg/dL [facility] Sodium 139 135 - 145 mmol/L [facility] Potassium 4.3 3.5 - 5.0 mmol/L [facility] Comment: Please note: ??Patients with WBC >100,00 0 may have falsely elevated Potassium levels. ??For accurate Potassium quantif ication in these patients send serum separator tube (gold top) for subsequent determinations. ??Contact the Clinical Chemistry Laboratory if there are any qu estions. Chloride 97 (L) 98 - 107 mmol/L [facility] CO2 29 22 - 31 mmol/L [facility] Anion Gap 13 5 - 15 mmol/L [facility] Calcium 10.7 (H) 8.5 - 10.5 mg/dL [facility] Estimated GFR 49 (L) >=60 mL/min/1.73 m?? [facility] Comment: The eGFR was calculated using the CKD-EP I equation. As with all creatinine based estimates of kidney function, eGFR values calculated with the CKD-EPI equation are not accurate in patients wi th acute kidney failure, extremes of body mass or the acutely ill. http://PT PAL/[facility] eGFR 56 (L) >=60 mL/min/1.73 m?? [facility] Comment: The eGFR was calculated using the CKD-EP I equation. As with all creatinine based estimates of kidney function, eGFR values calculated with the CKD-EPI equation are not accurate in patients wi th acute kidney failure, extremes of body mass or the acutely ill. http://PT PAL/[facility] Specimen Anatomical Collection Method Collection Time Receive d Time (Source) Location / / Volume Laterality Blood specimen 04/02/2019 1:57 PM 019 2:09 (specimen) EDT PM EDT Resulting Agency Comment Spec In Lab Lali Whelan MD CHEMISTRY ORDERABLES Performing Organization Address City/State/ZIP [place] [address] documented in this encounter Visit Diagnoses Diagnosis Chronic systolic heart failure Chronic systolic heart failure documented in this encounter Care Teams Centrifugal Separator Relationship Specialty Start Date End Date Pricila Geller APRN PCP - General Family Medicine 11/24/18 [address] [place] [address] documented as of this encounter
--- OUTSIDE RECORDS SUMMARY | 2022-05-20 07:40 | XMS_ITS | Encounter Summary ---
:1955 Author Organization [facility] [place] [address] Care Team Providers Name Role Phone Pricila Geller JOELLE Primary Care Provider Reason for Visit Reason Onset Date Comments Follow-up 04/03/2019 Apixaban level Encounter Details Date Type Department Care Team Description 04/03/2019 Telephone Cardiology at [facility] Prisca Russ, Follow-up (Apixaban [facility] RN level) [place] [address] Social History Tobacco Use Types Packs/Day [...] Telephone Encounter - Prisca Russ, RN - 04/03/2019 11:38 AM EDT Call placed to pt to confirm his understanding of getting the Apixaban level on Tuesday morning before his am dose of Apixaban. Getting done at: [facility] lab P [phone] F [phone] On Tuesday (04/06/19) morning. Order faxed. Telephone Encounter - Prisca Russ RN - 04/03/2019 11:31 AM EDT ----- Message from Prudence Lowry RN sent at 04/03/2019 9:20 AM EDT ----- ----- Message ----- From: Lali Vu MD Sent: 04/02/2019 4:57 PM To: BEHZAD Buckner/Beverley - please fax apixiban lab order to [facility] for Tuesday labs documented in this encounter Plan of Treatment Upcoming Encounters Date Type Specialty Care Team Description 06/16/2022 Laboratory Appointment Lab 06/16/2022 Office Visit Cardiology [facility]na [facility] [place], [place] [address] (Wo rk) Scheduled Procedures Name Priority Associated Diagnoses Date/Time EGD, UPPER GI ENDOSCOPY Chronic cough Heartburn RUQ pain Fecal urgency Dysphagia, unspecifi ed type History of hepatitis C COLONOSCOPY, DIAGNOSTIC Chronic cough Heartburn RUQ pain Fecal urgency Dysphagia, unspecifi ed type History of hepatitis C documented as of this encounter Visit Diagnoses Not on filedocumented in this encounter Care Teams Tanning Wheel Filler Relationship Specialty Start Date End Date Pricila Geller APRN PCP - General Family Medicine 11/24/18 [place] [address] documented as of this encounter
--- OUTSIDE RECORDS SUMMARY | 2022-05-20 07:40 | XMS_ITS | Encounter Summary ---
:1955 Author Organization [facility] [place] [address] Care Team Providers Name Role Phone Pricila Geller APRN Primary Care Provider Encounter Details Date Type Department Care Team Description 01/24/2019 Orders Only [place] [facility] [place] [phone] Social History Tobacco Use Types Packs/Day [...] [facility] Cardiology Dept [place], [place] [address] (Wo rk) Scheduled Procedures Name Priority Associated Diagnoses Date/Time EGD, UPPER GI ENDOSCOPY Chronic cough Heartburn RUQ pain Fecal urgency Dysphagia, unspecifi ed type History of hepatitis C COLONOSCOPY, DIAGNOSTIC Chronic cough Heartburn RUQ pain Fecal urgency Dysphagia, unspecifi ed type History of hepatitis C documented as of this encounter Visit Diagnoses Not on filedocumented in this encounter Care Teams Barber Instructor Relationship Specialty Start Date End Date Pricila Geller APRN PCP - General Family Medicine 11/24/18 [address] [place] [address] documented as of this encounter
--- OUTSIDE RECORDS SUMMARY | 2022-05-20 07:40 | XMS_ITS | Encounter Summary ---
:1955 Author Organization [facility] [place] [address] Care Team Providers Name Role Phone Vielka Gellerh JOELLE Primary Care Provider Reason for Referral Diagnostic Test (Routine) - Closed Specialty Diagnoses / Procedures Referred By Contact Refer red To Contact Cardiology Diagnoses Systolic heart failure, unspecified HF chronicity Pedro Jerez MD [facility] Non-Inv Card Lab Procedures Echocardi[facility]horacic(Leb) [address] [facility] [address] [address] [place] [phone] Fax: Referral ID Status Reason Start Date Expiration Date Visits V isits Requested Authorized [id number] Closed Specialty 01/30/2019 01/30/2020 1 1 Service Requested Reason for Visit Diagnostic Test (Routine) - Closed Specialty Diagnoses / Procedures Referred By Contact Refer red To Contact Cardiology Diagnoses Systolic heart failure, unspecified HF chronicity Pedro Jerez MD [facility] Non-Inv Card Lab Procedures Echocardiogram Transthoracic(Leb) [address] [facility] [address] [place] [address] [place] [address] Fax: Referral ID Status Reason Start Date Expiration Date Visits V isits Requested Authorized [id number] Closed Specialty 01/30/2019 01/30/2020 1 1 Service Requested Encounter Details Date Type Department Care Team Description 04/02/2019 Hospital Encounter Non-Invasive Meri, Systolic heart Cardiology Lab Magali Vasquez MD failure, unspecified [facility] [address] [facility] [address] [facility] [address] [place], [place] [phone] (Work) [phone] Social History Tobacco Use Types Packs/Day Years [...] 19 06/06/2019 90-400 mg Tablet mouth daily. [id number] apixaban 5 mg Take 5 mg by [...] Visit Cardiology Gianna Lorenzana PA [facility] er Cardiology Dept [place] [phone] (Wo rk) Scheduled Procedures Name Priority Associated Diagnoses Date/Time EGD, UPPER GI ENDOSCOPY Chronic cough Heartburn RUQ pain Fecal urgency Dysphagia, unspecifi ed type History of hepatitis C COLONOSCOPY, DIAGNOSTIC Chronic cough Heartburn RUQ pain Fecal urgency Dysphagia, unspecifi ed type History of hepatitis C documented as of this encounter Procedures Procedure Name Priority Date/Time Associated Comments Diagnosis ECHOCARDIOGRAM COMPLETE Routine 04/02/2019 1:02 Systolic heart Results for this PM EDT failure, procedure are i n unspecified HF the results chronicity section. documented in this encounter Results ECHOCARDIOGRAM COMPLETE (04/02/2019 1:02 PM EDT) P athologist Signature EF 38 HEARTLAB SYSTEM Specimen (Source) Anatomical Location Collection Method / Collectio n Time Received Time / Laterality Volume 04/02/2019 Narrative HEARTLAB SYSTEM - 04/02/2019 1:11 PM EDT Procedure: ?Transthoracic Echocardiogram Patient: ?PAMELA HANEY ? (Age): 1955(64y) Med Rec#: ? [id number] ?Sex: ?M ? Site Loc: ? [facility] ?Ht / Wt: ??175.3(cm)/73.5( Pt. Loc: ?Echo Lab ?BSA: ?1.89 Study Date: ?? 04/02/2019 ?Pt. Type: Outpatient Tape: ? Referring: ROLANDO Reading: Yoandy Fleming Ricci ([id number]) Manufacturing Technology Professor: Mat Xavier RIZWANA Diagnosis: *Unspecified systolic (congestive) hear t failure (I50.20) BP: ? 123/85 SUMMARY: 1. Moderate concentric left ventricular hypertrophy is observed. ??Global left ventricular systolic function is mo derately reduced. GLS -9.9% on GE E9. The quantitative left ventricular ejection fraction by biplane Walker's method is 38%. ??There are lef t ventricular segmental wall motion abnormalities present, as shown i n the diagram below. 2. The right ventricle is normal in size . ??Right ventricular global systolic function is mildly reduced. 3. A porcine bio-prosthetic aortic valve is present. The mean trans-valvular gradient across ??the aor tic valve is 24 mmHg. (DOI=0.24) Moderate (2+/4+) aortic valve prosthesis regurgitation is present. 4. A bovine bio-prosthetic mitral valve is present. The mean gradient across the mitral valve is 5 mmHg. @ 75 bpm. There is a trace amount of mitral prosthesis regurgitation. 5. When compared with study dated 7 and report from [facility] dated 01/2018, findings are similar. 6. See remainder of report for additiona l findings. Findings ? : Study Quality: ? Adequate Left Ventricle: ? The left ventricul ar chamber size is normal. ?Moderate concentric left ventricul ar hypertrophy is observed. ?There is no evidence of LVOT obstr uction. ?No ventricular septal defect is vi sualized. ?Global left ventricular systolic f unction is moderately reduced. GLS -9.9% on GE E9. ?The quantitative left ventricular ejection fraction by biplane Walker's method is 38%. ?There are left ventricular segment al wall motion abnormalities present, as shown in the diagram below. ?Left ventricular diastolic functio n is abnormal. ?Doppler assessment is consistent w ith elevated left sided filling pressure. ?The ??mid anterior, mid anterolate ral, mid inferolateral, apical anterior, and ??apical lateral wall segm ents are hypokinetic (score 2). ?The ??basal inferior, basal infero septal, mid inferior, mid inferoseptal, apical septal, and ??apica l inferior wall segments are akinetic (score 3). ?The ??basal anteroseptal, and ??mi d anteroseptal wall segments are dyskinetic (score 4). ?Overall wallmotion score index is ??2.44 Left Atrium: ? The left atrium is se verely dilated. ?There is no evidence of a patent f oramen ovale by color Doppler. Right Ventricle: ? The right ventric le is normal in size. ?Right ventricular global systolic function is mildly reduced. ?The estimated pulmonary artery sys tolic pressure is 22 mmHg. ?The estimated right atrial pressur e is 3 mmHg. Right Atrium: ? The right atrium is normal in size. Aortic Valve: ? The peak instantaneo us trans-valvular gradient across the aortic valve is 41 mmHg. Acquired fr om RSB. ?The mean trans-valvular gradient a cross ??the aortic valve is 24 mmHg. ?The calculated aortic valve area i s 0.9 cm2. ?The size of the prosthetic aortic valve is 24mm. ?The prosthetic aortic valve was im planted on 01/19/2014. ?A porcine bio-prosthetic aortic va lve is present. ?The prosthetic aortic valve leafle ts are normal. ?The bio-prosthetic aortic valve ap pears stenotic. ?Moderate (2+/4+) aortic valve pros thesis regurgitation is present. Mitral Valve: ? There is mitral maribell lar calcification. ?The mean gradient across the gregoria l valve is 5 mmHg. @ 75 bpm. ?The size of [...] is mild (1+/4+) tricuspid re gurgitation present. 2 jets. Pulmonic Valve: ? The pulmonic valve appears normal in structure and function. ?There is trace pulmonic regurgitat ion present. Pericardium: ? The pericardium appea rs normal and there is no evidence of a pericardial effusion. Aorta: ? The aortic root is normal i n size. ?There is moderate dilatation of th e ascending aorta. 4.5cm ?There is mild dilatation of the ao rtic arch. ?The descending aorta is normal in size. ?The abdominal aorta is normal in s ize. Pulmonary Artery: ? The main pulmona ry artery appears normal. Venous: ? The inferior vena cava jody ears normal in size. ?There is a greater than 50% respir atory change in the inferior vena cava dimension. Misc: ? There is no hemodynamically significant valve disease. ?See remainder of report for additi onal findings. ?Two-dimensional echo, spectral Dop pler and color Doppler performed. ?SYDNEY performed ?Myocardial Strain Imaging Chambers 2D ?Value ?Units (Range) ? IVSd (2D) ? 1.9 ?cm ? LVPWd (2D) ?1.6 ?cm ? IVS:LVPW ratio (2D) 1.2 ?ratio ? RWT (2D) ?0.8 ?ratio ? RWT PW (2D) ? 0.8 ?ratio ? LVIDd (2D) ?4.1 ?cm ? LVIDs (2D) ?3 ?cm ? LVIDd (2D) index ?2.2 ?cm/m2 ? LVIDs (2D) index ?1.6 ?cm/m2 ? LV FS (2D) ?26 ? % ? EF Teichholz (2D) ?? 52 ? % ? Ao root diameter (2D3.6 ?cm (2.1 - 3.6) ? Ascending Ao ?4.5 ?cm (2 - 3.5) ? Volumes/Mass ?Value ?Units (Range) ? LA Area 4 CH ?32.6 ? cm2 (<21) ? LA ESV BP (A/L) inde80 ? ml/m2 ? RA AREA 4CH ? 14.8 ? cm2 ? LV ESV SP 4CH (MOD) 70.1 ? ml ? LV ESV SP 2CH (MOD) 49.3 ? ml ? LV EDV BP ? 94.9 ? ml ? LV ESV BP ? 58.8 ? ml ? LV EDV BP index ? 50.2 ? ml/m2 ? LV ESV BP index ? 31.1 ? ml/m2 ? BP EF (MOD) ? 38 ? % ? LV mass (2D) ?293.4 ?g ? LV mass (2D) index ??155.3 ?g/m2 ? Diastolic/Systolic Function ?Value ?Units (Range) ? MV E-wave Vmax ?1.2 ?m/sec ? LV septal e' Vmax ?? 0 ?m/sec ? LV lateral e' Vmax ??0 ?m/sec ? LV average e' Vmax ??0 ?m/sec ? LV E:e' septal ratio39.5 ? ratio ? LV E:e' lateral rati29.6 ? ratio ? LV average E:e' rati29.6 ? ratio ? Aortic Valve ?Value ?Units (Range) ? AV Vmax ? 3.2 ?m/sec ? AV VTI ?61.9 ? cm ? AV peak gradient ?41 ? mmHg ? AV mean gradient ?24 ? mmHg ? LVOT diameter ? 2.1 ?cm ? LVOT Vmax ? 0.8 ?m/sec ? LVOT VTI ?13.8 ? cm ? LVOT peak gradient ??2.8 ?mmHg ? LVOT mean gradient ??1.8 ?mmHg ? DOI (VTI) ? 0.2 ?ratio ? DOI (Vmax) ?0.3 ?ratio ? SV LVOT ? 48 ? ml ? CO LVOT ? 3.8 ?l/min ? Cardiac index ? 2 ?l/min/m2 ? AMAURY (continuity Vmax0.9 ?cm2 ? AMAURY (continuity Vmax0.5 ?cm2/m2 ? AMAURY (continuity VTI)0.8 ?cm ? AMAURY (continuity VTI)0.4 ?cm2/m2 ? Mitral Valve ?Value ?Units (Range) ? MV Vmax ? 1.5 ?m/sec ? MV VTI ?37.1 ? cm ? MV peak gradient ?8.9 ?mmHg ? MV mean gradient ?5 ?mmHg ? MV PHT ?87.7 ? msec ? MVA (PHT) ? 2.5 ?cm2 ? MVA (continuity VTI)1.3 ?cm2 ? Tricuspid Valve ?Value ?Units (Range) ? TR Vmax ? 2.2 ?m/sec ? TR peak gradient ?18.7 ? mmHg ? RAP ? 3 ?mmHg ? RVSP ?22 ? mmHg ? Pulmonic Valve/Qp:Qs ?Value ?Units (Range) ? OH end-diastolic Vma1.3 ?m/sec ? PA end-diastolic pre9.5 ?mmHg ? Wall Motion: Segment Name ?Rest ? Base-Anteroseptal ?? Dyskinetic ? Base-Anterior ? Normal ? Base-Anterolateral ??Normal ? Base-Posterolateral Normal ? Base-Inferior ? Akinetic ? Base-Inferoseptal ?? Akinetic ? Mid-Anteroseptal ?Dyskinetic ? Mid-Anterior ?Hypokinetic ? Mid-Anterolateral ?? Hypokinetic ? Mid-Posterolateral ??Hypokinetic ? Mid-Inferior ?Akinetic ? Mid-Inferoseptal ?Akinetic ? [place]-Septal ? Akinetic ? [place]-Anterior ? Hypokinetic ? [place]-Lateral ?Hypokinetic ? [place]-Inferior ? Akinetic ? [place]-Tip ?Hypokinetic ? This report has been electronically sign ed by: _ Yoandy Fleming M.D. ? 04/02/2019 13:10:39 Images reviewed and interpretation enrique brunson [facility] Cardiac Ultrasound Laboratory Procedure Note Yoandy Fleming MD - 04/02/2019Format ting of this note might be different from the original. Procedure: Transthoracic Echocardiogram Patient: PAMELA HUTTON(Age): [birth year](64y) Med Rec#: [id number] Sex: M Site Loc: [facility] Ht / Wt: 175.3(cm)/73.5( Pt. Loc: Echo Lab BSA: 1.89 Study Date: 04/02/2019 Pt. Type: Outpati ent Tape: Referring: ROLANDO Reading: Yoandy Fleming ([id number]) Manufacturing Technology Professor: Mat Xavier [facility] Diagnosis: *Unspecified systolic (congestive) hear t failure (I50.20) BP: 123/85 SUMMARY: 1. Moderate concentric left ventricular hypertrophy is observed. Global left ventricular systolic function is mo derately reduced. GLS -9.9% on GE E9. The quantitative left ventricular ejection fraction by biplane Walker's method is 38%. There are left ventricular segmental wall motion abnormalities present, as shown i n the diagram below. 2. The right ventricle is normal in size . Right ventricular global systolic function is mildly reduced. 3. A porcine bio-prosthetic aortic valve is present. The mean trans-valvular gradient across the aorti c valve is 24 mmHg. (DOI=0.24) Moderate (2+/4+) aortic valve prosthesis regurgitation is present. 4. A bovine bio-prosthetic mitral valve is present. The mean gradient across the mitral valve is 5 mmHg. @ 75 bpm. There is a trace amount of mitral prosthesis regurgitation. 5. When compared with study dated and report from [facility] dated 01/2018, findings are similar. 6. See remainder of report for additiona l findings. Findings : Study Quality: Adequate Left Ventricle: The left ventricular aakash mber size is normal. Moderate concentric left ventricular hy pertrophy is observed. There is no evidence of LVOT obstructio n. No ventricular septal defect is visuali zed. Global left ventricular systolic functi on is moderately reduced. GLS -9.9% on GE E9. The quantitative left ventricular eject ion fraction by biplane Walker's method is 38%. There are left ventricular segmental wa ll motion abnormalities present, as shown in the diagram below. Left ventricular diastolic function is abnormal. Doppler assessment is consistent with e levated left sided filling pressure. The mid anterior, mid anterolateral, mi d inferolateral, apical anterior, and apical lateral wall segmen ts are hypokinetic (score 2). The basal inferior, basal inferoseptal, mid inferior, mid inferoseptal, apical septal, and apical inferior wall segments are akinetic (score 3). The basal anteroseptal, and mid anteros eptal wall segments are dyskinetic (score 4). Overall wallmotion score index is 2.44 Left Atrium: The left atrium is severely dilated. There is no evidence of a patent forame n ovale by color Doppler. Right Ventricle: The right ventricle is normal in size. Right ventricular global systolic funct ion is mildly reduced. The estimated pulmonary artery systolic pressure is 22 mmHg. The estimated right atrial pressure is 3 mmHg. Right Atrium: The right atrium is normal in size. Aortic Valve: The peak instantaneous tra ns-valvular gradient across the aortic valve is 41 mmHg. Acquired fr om RSB. The mean trans-valvular gradient across the aortic valve is 24 mmHg. The calculated aortic valve area is 0.9 cm2. The size of the prosthetic aortic valve is 24mm. The prosthetic aortic valve was implant ed on 01/19/2014. A porcine bio-prosthetic aortic valve i s present. The prosthetic aortic valve leaflets ar e normal. The bio-prosthetic aortic valve appears stenotic. Moderate (2+/4+) aortic valve prosthesi s regurgitation is present. Mitral Valve: There is mitral annular ca lcification. The mean gradient across the mitral michael ve is 5 mmHg. @ 75 bpm. The size of [...] is mild (1+/4+) tricuspid regurgi tation present. 2 jets. Pulmonic Valve: The pulmonic valve appea rs normal in structure and function. There is trace pulmonic regurgitation p resent. Pericardium: The pericardium appears nor mal and there is no evidence of a pericardial effusion. Aorta: The aortic root is normal in size . There is moderate dilatation of the asc ending aorta. 4.5cm There is mild dilatation of the aortic arch. The descending aorta is normal in size. The abdominal aorta is normal in size. Pulmonary Artery: The main pulmonary art santos appears normal. Venous: The inferior vena cava appears n ormal in size. There is a greater than 50% respiratory change in the inferior vena cava dimension. Misc: There is no hemodynamically signif icant valve disease. See remainder of report for additional findings. Two-dimensional echo, spectral Doppler and color Doppler performed. SYDNEY performed Myocardial Strain Imaging Chambers 2D Value Units (Range) IVSd (2D) 1.9 cm LVPWd (2D) 1.6 cm IVS:LVPW ratio (2D) 1.2 ratio RWT (2D) 0.8 ratio RWT PW (2D) 0.8 ratio LVIDd (2D) 4.1 cm LVIDs (2D) 3 cm LVIDd (2D) index 2.2 cm/m2 LVIDs (2D) index 1.6 cm/m2 LV FS (2D) 26 % EF Teichholz (2D) 52 % Ao root diameter (2D3.6 cm (2.1 - 3.6) Ascending Ao 4.5 cm (2 - 3.5) Volumes/Mass Value Units (Range) LA Area 4 CH 32.6 cm2 (<21) LA ESV BP (A/L) inde80 ml/m2 RA AREA 4CH 14.8 cm2 LV ESV SP 4CH (MOD) 70.1 ml LV ESV SP 2CH (MOD) 49.3 ml LV EDV BP 94.9 ml LV ESV BP 58.8 ml LV EDV BP index 50.2 ml/m2 LV ESV BP index 31.1 ml/m2 BP EF (MOD) 38 % LV mass (2D) 293.4 g LV mass (2D) index 155.3 g/m2 Diastolic/Systolic Function Value Units (Range) MV E-wave Vmax 1.2 m/sec LV septal e' Vmax 0 m/sec LV lateral e' Vmax 0 m/sec LV average e' Vmax 0 m/sec LV E:e' septal ratio39.5 ratio LV E:e' lateral rati29.6 ratio LV average E:e' rati29.6 ratio Aortic Valve Value Units (Range) AV Vmax 3.2 m/sec AV VTI 61.9 cm AV peak gradient 41 mmHg AV mean gradient 24 mmHg LVOT diameter 2.1 cm LVOT Vmax 0.8 m/sec LVOT VTI 13.8 cm LVOT peak gradient 2.8 mmHg LVOT mean gradient 1.8 mmHg DOI (VTI) 0.2 ratio DOI (Vmax) 0.3 ratio SV LVOT 48 ml CO LVOT 3.8 l/min Cardiac index 2 l/min/m2 AMAURY (continuity Vmax0.9 cm2 AMAURY (continuity Vmax0.5 cm2/m2 AMAURY (continuity VTI)0.8 cm AMAURY (continuity VTI)0.4 cm2/m2 Mitral Valve Value Units (Range) MV Vmax 1.5 m/sec MV VTI 37.1 cm MV peak gradient 8.9 mmHg MV mean gradient 5 mmHg MV PHT 87.7 msec MVA (PHT) 2.5 cm2 MVA (continuity VTI)1.3 cm2 Tricuspid Valve Value Units (Range) TR Vmax 2.2 m/sec TR peak gradient 18.7 mmHg RAP 3 mmHg RVSP 22 mmHg Pulmonic Valve/Qp:Qs Value Units (Range) OH end-diastolic Vma1.3 m/sec PA end-diastolic pre9.5 mmHg Wall Motion: Segment Name Rest Base-Anteroseptal Dyskinetic Base-Anterior Normal Base-Anterolateral Normal Base-Posterolateral Normal Base-Inferior Akinetic Base-Inferoseptal Akinetic Mid-Anteroseptal Dyskinetic Mid-Anterior Hypokinetic Mid-Anterolateral Hypokinetic Mid-Posterolateral Hypokinetic Mid-Inferior Akinetic Mid-Inferoseptal Akinetic [place]-Septal Akinetic [place]-Anterior Hypokinetic [place]-Lateral Hypokinetic [place]-Inferior Akinetic [place]-Tip Hypokinetic This report has been electronically sign ed by: _ Yoandy Fleming M.D. 04/02/2019 13:10: 39 Images reviewed and interpretation enrique brunson [facility] Cardiac Ultrasound Laboratory Pedro Jerez MD ECHO ORDERABLES Performing Organization Address City/State/ZIP Code Phon e Number HEARTLAB SYSTEM documented in this encounter Visit Diagnoses Diagnosis Systolic heart failure, unspecified HF c hronicity documented in this encounter Care Teams Plastic Extruding Machine Operator Relationship Specialty Start Date End Date Pricila Geller APRN PCP - General Family Medicine 11/24/18 [place] [id number] documented as of this encounter
--- OUTSIDE RECORDS SUMMARY | 2022-05-20 07:40 | XMS_ITS | Encounter Summary ---
:1955 Author Organization [facility] [place] [address] Care Team Providers Name Role Phone BenjamínPricila marcus JOELLE Primary Care Provider Reason for Visit Reason Comments Right Hip Pain ZAKI DOS 2011 Consultation (Routine) - Closed Specialty Diagnoses / Procedures Referred By Contact Refer red To Contact Orthopaedics Diagnoses Right hip pain, patient s/p RT ZAKI 2011 ([place], [place]) Shaun Thrasher, [facility] [address]c [place] [address] [place] [address] Referral ID Status Reason Start Date Expiration Date Visits V isits Requested Authorized [id number] Closed Consult, 04/12/2019 04/11/2020 1 1 [facility] Encounter Details Date Type Department Care Team Description 04/25/2019 Office Visit [place] [facility] Beltran Conrad, 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 Hip pain, right; [facility] History of total hip arthrop [place]y, [place] [address] ORTHOPAEDIC SURG [place], [place] [address] (Wo rk) Social History Tobacco [...] Sign Reading Time Taken Comments Blood Pressure 103/70 04/25/2019 9:33 AM EDT Pulse 76 04/25/2019 9:33 AM EDT Temperature - - Respiratory Rate - - Oxygen Saturation - - Inhaled Oxygen Concentration - - Weight 73.8 kg (162 lb 11.2 oz) 04/25/2019 9:33 AM EDT measured Height 171.5 cm (5' 7.5) 04/25/2019 9:33 AM EDT measur ed Body Mass Index 25.11 04/25/2019 9:33 AM EDT documented in this encounter Progress Notes Beltran Conrad MD - 04/25/2019 10:00 AM EDT Images from the original note were not included. Department of Orthopaedics Division of Adult Joint Reconstructive Surgery Chief Complaint: Chief Complaint Patient presents with ??? Right Hip Pain ZAKI DOS 2011 This patient was referred from Shaun Thrasher [facility] [address] [place] [address] for evaluation of right hip pain. Previous office notes, operative reports, and any other available medical documentation were reviewed by me. ARTHROPLASTY HISTORY/PREVIOUS HIP SURGERY: 1. 2011 Right ZAKI [facility] (operative report not available for review at time of visit). Subjective: Cong Khan is a 64 y.o. male who presents with Right hip pain. This pain has been present for about 1 year. There was not an inciting event or trauma. He denies any history of hip disease as a child or adolescent. He underwent a right ZAKI at [facility] in 2011, through either a posterior or lateral approach. He reports no issues with wound healing or any other immediate post operative complications. His indication for surgery was osteoarthritis. He does report that since his surgery he has been told by fr iends that he has a limp and he thinks this limp has gotten worse over the past year. During that same time he has noted increasing pain in his right groin and buttock. The pain will sometimes radiate down the leg. He has not noticed any progressive limb length discrepancy. He notes that pain is typically worst when getting out of bed in the morning or when rising from a seated position. He reports that the pain improves with activity. He does report 3 episodes of post-operative hematoma in his right thigh. He was managed on coumadin for a-fib and had supratherapeutic INR. None of the episodes was managed surgically. CT scans demonstrated fluid collections around the hip and thigh. After the third episode he was switched to Eliquis and has not had another episode. REVIEW OF SYSTEMS: He denies any recent health changes such as unexplained fevers, chills, or weight-loss. He is currently undergoing treatment with Harvoni to cure his Hepatitis C and he has 2 weeks of treatment left. He denies any recent chest pain, dyspnea on exertion, or bleeding episodes. He denies any new numbnessor tingling in his feet or legs. QUESTIONNAIRE RESPONSES: General Health, Prior Treatments, PreExisting Condition, Health Habits, About You 04/25/2019 HOOS JR Scores 52.97 Weight (lbs) 160 Height (feet) 5 feet Height (Inches) 8 BMI 24.32 (Normal) Ever used tobacco products No Ever used alcoholic beverages Yes Alcohol frequency Never WHO - Alcohol Advice 0 (You are at low risk of health and other problems from your current pattern of use.) Live Alone No Marital situation Living with significant other Schooling Some college or 2 - year degree Combined Household Income $25,000 to less than $35,000 # People Supported 2 Czech, , No, not Czech// Race White Health Literacy Quite a bit Currently working No Not working because: Retired [facility] Response 04/25/2019 HOOS JR Scores 52.97 Spine [facility] Response 04/25/2019 HOOS JR Scores 52.97 ALLERGIES No Known Allergies Allergies to metals: none. SOCIAL HISTORY: reports that he has never smoked. He has never used smokeless tobacco. He reports that he does not drink alcohol or use drugs. Occupation: retired FAMILY HISTORY: He denies any family history of rheumatoid/inflammatory arthritis or gout. There is no significant family history of cardiac disease. SIGNIFICANT MEDICAL COMORBIDITIES: He does not endorse a history of DVT/PE or clotting disorder. Patient Active Problem List Diagnosis Code ??? Acute systolic congestive heart failure I50.21 ??? Atrial fibrillation I48.91 ??? Hypertension I10 ??? 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 Stroke I63.9 ??? Valvular disease I38 ??? 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 General : alert, appears stated age and cooperative Gait: Abductor lurch. The patient is able to get up from a chair without the use of their arms. Eyes: Normal conjunctiva and eye lids. No jaundice noted. ENT: Dentition appears intact. Respiratory: Normal respiratory effort. No audible wheezing or rhonchi. Abdomen: Pannus minimal Skin: Well healed surgical scar over lateral hip. No open wounds, sores, ulcers, or plaques noted. Hip Exam: Right Prior surgery on this joint: Yes Leg length: Longer leg: left Limb Length discrepancy: 1cm Motion: Flexion contracture: 0 Total degrees of Flexion:105 Total degrees of Abduction:35 Total degrees of Ext Rotation: 20 Total degrees of Internal Rotation: 10 Gait Abnormality: Trendelenburg Skin Integrity: Normal Pulses Palpable: Right PT: Yes Right DP:Yes Motor/Sensory: Right Distal Motor: Normal Distal Sensory: Normal Hip Abductors: 5 Trendelenburg test: positive on the right There are no anterior and posterior impingement signs. Straight leg slzco-non-udds does mildly reproduce pain in the groin although there is weakness on the right compared to the left. Strength 4/5 R and 5/5 L. . Imaging: The following imaging studies were personally reviewed by me today. I reviewed these imaging studieswith the patient during their visit. When available, the official radiology reports were reviewed aswell. X-Ray: AP Pelvis and AP/Lat views of the right hip from 03/21/19. The most recent images were comparedto previous studies when available. Non-cemented total hip arthroplasty noted in the right hip. Right leg measures radiographically approx 1cm shorter than the left. Slightly reduced offset compared to left hip. No radiolucent lines behind acetabulum or around femoral stem. Stem appears to be a [place] Accolade TMZF with CoCr on poly bearing. Radiographic report on 3 phase bone scan from 04/10/19 reviewed and does not describe any increased uptake in delayed phase around either the cup or stem. NO asymmetry noted in flow or pool phase. Laboratory: Labs drawn on 03/21/19 return an ESR of 3 mm/hr and a CRP of <8 mg/L. Both are normal per lab reporting. Assessment: Mr. Khan is a 64 y.o. year old male with increasing pain around a previously well functioning right total hip arthroplasty. Inflammatory markers are benign which is reassuring against infection, however in the setting of synthetic liver failure these may not elevate. Patient does not describe liver failure in the setting of chronic HepC. 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 Given the patients normal bone scan and inflammatory markers, the next diagnosis to evaluate would be for metallosis. Plan: Will send for serum chromium and cobalt levels. If elevated will plan for MARS MRI of the right hip to evaluate for pseudotumor/metallosis. If metal ions are normal will need to consider hip aspirationto rule out infection. Possible differential diagnosis and plan discussed with patient. I did discuss that if trunnion corrosion is diagnosed then surgery would be necessary to convert the CoCr head to a ceramic. If trunniondamage is seen then stem revision would be necessary. I will contact patient with results of the metal ion levels and plans to proceed from there. All questions were answered today. Beltran Conrad MD documented in this encounter Plan of Treatment Upcoming Encounters Date Type Specialty Care Team Description 06/16/2022 Laboratory Appointment Lab 06/16/2022 Office Visit Cardiology Gianna Lorenzana PA [facility] Cardiology Dept [place], [place] [address] (Wo rk) Scheduled Procedures Name Priority Associated Diagnoses Date/Time EGD, UPPER GI ENDOSCOPY Chronic cough Heartburn RUQ pain Fecal urgency Dysphagia, unspecifi ed type History of hepatitis C COLONOSCOPY, DIAGNOSTIC Chronic cough Heartburn RUQ pain Fecal urgency Dysphagia, unspecifi ed type History of hepatitis C documented as of this encounter Procedures Procedure Name Priority Date/Time Associated Diagnosis Comme nts LAB SCAN 06/19/2019 12:00 AM Results for this EDT procedure are i n the results section . COBALT LVL Routine 04/25/2019 10:49 AM Hip pain, ri ght Results for this EDT History of total hip procedu re are in the arthroplasty, right results section. CHROMIUM LEVEL Routine 04/25/2019 10:49 AM Toxic effect of Res ults for this EDT chromium and its procedure a re in the compounds, results section . undetermined, initial encounter Hip pain, right History of total hip arthroplasty, right documented in this encounter Results SCAN DOC: LAB (06/19/2019 12:00 AM EDT) Narrative 06/19/2019 12:00 AM EDT This result has an attachment that is no t available. Ordered by an unspecified provider. Scanning Provider MEDIA MGR SCAN EXT ORDR/RSLT Chromium level (04/25/2019 10:49 AM EDT) P athologist Signature Chromium 0.2 <0.3 ng/mL [facility] Comment: ADDITIONAL INFORMATIO N This test was developed and its performa nce characteristics determined by [facility] in a manner co nsistent with CLIA requirements. This test has not been patricia ared or approved by the U.S. Food and Drug Administration. Test Performed by: [facility] [address] [place], [place] [address] Specimen Anatomical Collection Method Collection Time Receive d Time (Source) Location / / Volume Laterality Blood specimen 04/25/2019 10:49 9 1:20 (specimen) AM EDT PM EDT Resulting Agency Comment Spec In Lab Beltran Conrad MD CHEMISTRY ORDERABLES Performing Organization Address City/State/[place] [address] [place] Lvl (04/25/2019 10:49 AM EDT) athologist Signature [place] Lvl 0.5 ng/mL [facility] Comment: REFERENCE VALUE------ 0.0-0.9 <10 (MoM implant) ADDITIONAL INFORMATIO N This test was developed and its performa nce characteristics determined by [facility] in a manner co nsistent with CLIA requirements. This test has not been patricia ared or approved by the U.S. Food and Drug Administration. Test Performed by: [facility] [address] [place] [address] Specimen Anatomical Collection Method Collection Time Receive d Time (Source) Location / / Volume Laterality Blood specimen 04/25/2019 10:49 9 1:20 (specimen) AM EDT PM EDT Resulting Agency Comment Spec In Lab Beltran Conrad MD CHEMISTRY ORDERABLES Performing Organization Address City/State/[place] [address] documented in this encounter Visit Diagnoses Diagnosis Toxic effect of chromium and its compoun ds, undetermined, initial encounter Hip pain, right Pain in joint, pelvic region and thigh History of total hip arthroplasty, right documented in this encounter Care Teams Harvest Supervisor Relationship Specialty Start Date End Date Pricila Geller APRN PCP - General Family Medicine 11/24/18 Jessica [place] [address] documented as of this encounter
--- OUTSIDE RECORDS SUMMARY | 2022-05-20 07:40 | XMS_ITS | Encounter Summary ---
:1955 Author Organization [facility] [address] Care Team Providers Name Role Phone Pricila Geller APRN Primary Care Provider Reason for Visit Reason Onset Date Comments Results 04/23/2019 Apixaban level Encounter Details Date Type Department Care Team Description 04/23/2019 Telephone Cardiology at [facility] Prisca Russ, Results (Apixaban level) [facility] [place] [address] Social History Tobacco Use Types Packs/Day [...] Telephone Encounter - Prisca Russ RN - 04/23/2019 5:35 PM EDT Message received from Keysha at [facility] in [place], [place] requesting guidance about holding Eliquis and getting cardiology clearance for pt to get his 10 year colonoscopy. Pt contacted and confirmed the question but would like to consider an alternate test for this, sincehe has no history of colon problems. Above reviewed with Dr You who is requesting that this be deferred until the pt's anticoagulation therapy has been straightened out. Pt is aware and agrees. Message left for Keysha at [facility] ([phone]) with the instructions from Dr You. They are to call with any further questions. Telephone Encounter - Prisca Russ RN - 04/23/2019 4:41 PM EDT Pt contacted and confirmed that the Apixaban level was drawn 12 hours after the last dose of Apixaban (7 pm the evening before). Current level is 500 NG/mL Reporting Limit: 10 ng/mL. Above message reviewed with Dr You. Pt contacted with the following instructions from Dr You: Decrease the apixaban to 2.5 mg bid. He has about a month of 5 mg tablets left and wants to use them up. He will cut them in half (one tab taking 1/2 in am and 1/2 tab in pm). Call placed to [facility] to stop the refills for the 5 mg tablets. Pt to get a repeat Apixaban trough done the end of this week or next week, preferably at . Turn around to get results from his local lab is 2 weeks. Pt is agreeable and will call when he gets the test done. Order entered into [facility]D-[facility] Telephone Encounter - Prisca Russ RN - 04/23/2019 4:41 PM EDT ----- Message from Prisca Russ RN sent at 04/03/2019 11:44 AM EDT ----- Regardin/17 Eliquis Trough [facility] lab P [phone] F [phone] For Lali. documented in this encounter Plan of Treatment Upcoming Encounters Date Type Specialty Care Team Description 06/16/2022 Laboratory Appointment Lab 06/16/2022 Office Visit Cardiology Gianna Lorenzana PA [facility] er Cardiology Dept [place], [place] [address] (Wo rk) Scheduled Procedures Name [...] Associated Diagnosis Comme nts APIXABAN LEVEL Routine 04/06/2019 8:50 AM Results for this EDT procedure are i n the results section . documented in this encounter Results Apixaban Level (05/04/2019 12:43 PM EDT) P athologist Signature Apixaban Level 151 ng/mL [facility] Comment: No ? therapeutic range? for Apixaban has been defined. ? On therapy? ranges for various indications are derived from the medical literature and pharmacokinetic modeling and listed below (Lázaro & Terrence hoffmann. Hematology Am Soc Hematol Educ Program 2015 [...] and its performa nce characteristics determined by [facility]. It h as not been cleared or approved by the FDA. The laboratory is regulated under [place] as qualified to perform high complexity testing. This test is used fo r clinical purposes. It should not be regarded as investigational or for resea [facility]. Specimen Anatomical Collection Method Collection Time Receive d Time (Source) Location / / Volume Laterality Blood specimen 05/04/2019 12:43 9 (specimen) PM EDT 12:55 PM EDT Resulting Agency Comment Spec In Lab Lali Whelan MD HEMATOLOGY ORDERABLES Performing Organization Address City/State/[place] [address] (ABNORMAL) Apixaban Level (04/06/2019 8:50 AM EDT) Analysis Performed At Patho logist Time Signature Apixaban Level 500 ng/ml 10 ng/ml EXTERNAL LAB Specimen (Source) Anatomical Collection Method Collection Time Re ceived Time Location / / Volume Laterality Blood specimen 04/06/2019 8:50 AM (specimen) EDT Historical Provider HEMATOLOGY ORDERABLES Performing Organization Address City/State/ZIP Code Phon e Number EXTERNAL LAB documented in this encounter Visit Diagnoses Diagnosis Atrial fibrillation, unspecified type 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
--- OUTSIDE RECORDS SUMMARY | 2022-05-20 07:40 | XMS_ITS | Encounter Summary ---
:1955 Author Organization [facility] [place] [address] Care Team Providers Name Role Phone Pricila Geller APRN Primary Care Provider Reason for Visit Consultation (Routine) - Specialty Diagnoses / Procedures Referred By Contact Refer red To Contact Vascular Surgery Diagnoses BILATERAL CLAUDICATION Pricila Geller APRN [facility] 3v [address] [address] Phone: Referral ID Status Reason Start Date Expiration Date Visits V isits Requested Authorized [id number] Consult, 11/24/2018 11/24/2019 6 6 [facility] Encounter Details Date Type Department Care Team Description 01/22/2019 Tech Visit Vascular Lab at [facility], [place] [address] Social History Tobacco Use Types Packs/Day [...] Cardiology Gianna Lorenzana PA [facility] er Cardiology Dept [place], [place] [address] (Wo rk) Scheduled Procedures Name Priority Associated Diagnoses Date/Time EGD, UPPER GI ENDOSCOPY Chronic cough Heartburn RUQ pain Fecal urgency Dysphagia, unspecifi ed type History of hepatitis C COLONOSCOPY, DIAGNOSTIC Chronic cough Heartburn RUQ pain Fecal urgency Dysphagia, unspecifi ed type History of hepatitis C documented as of this encounter Procedures Procedure Name Priority Date/Time Associated Diagnosis Comme nts HARMAN, LEGS, MULTIPLE Routine 01/22/2019 3:06 PM Intermittent Re sults for this LEVELS EST claudication procedure are i n the results section. documented in this encounter Results HARMAN, legs, multiple levels (01/22/2019 3:06 PM EST) Component Value Ref Test Analysis Performed At [facility] [employer] Range Method Time Signature VB Text Department: Vascular Surgery Lab [facility] Report Patient: [id number] (MEDINA KHAN) CPT: 87561 ICD10: M79.604;I73.9 Referring Physician: MARIVEL GILLIAM ?? Phone: Indications: Right LE pain, right groin pain, co ld right great toe, OSH right groin hematoma 2 weeks ago, ? peripheral perfusion Diabetes mellitus: No ICD10 Diagnosis Code: M79.604, I73.9 Findings: Right ?Pressure (mm Hg) ?? HARMAN ??Waveform ?TBI ?? Brachial Artery ?122 ? Common Femoral Artery ?Triphasic ? Popliteal Artery ? Triphasic ? Dorsalis Pedis (Ankle) Arter y ?128 ? 1.02 ??Triphasic ? Posterior Tibial (Ankle) Art santos ??142 ? 1.14 ??Triphasic ? Great Toe ?76 ? 0.61 ?? Left ? Pressure (mm Hg) ?? HARMAN ??Waveform ?TBI ?? Brachial Artery ?125 ? Common Femoral Artery ?Triphasic ? Popliteal Artery ? Triphasic ? Dorsalis Pedis (Ankle) Arter y ?131 ? 1.05 ??Triphasic ? Posterior Tibial (Ankle) Art santos ??142 ? 1.14 ??Triphasic ? Great Toe ?86 ? 0.69 ?? Interpretation: RIGHT: No significant lower extremity ar terial occlusive disease identified at rest. Normal ankle/brachial pressure ratios and ankle Dopple r waveforms. Toe/brachial index slightly lower than a nkle/brachial index indicates presence of mild arterial occlusive disease in the foot. Limited du plex of the right groin; no evidence of hematoma in the right groin. LEFT: No significant lower extremity arterial oc clusive disease identified at rest. Normal ankle/brachial pressure ratios and ankle Dopple r waveforms. Toe/brachial index slightly lower than a nkle/brachial index indicates presence of mild arterial occlusive disease in the foot. Comment: If patient symptoms are consistent with vascular cl audication, consider treadmill exam to identify giovana rial stenoses that are hemodynamically significant only when the periphery is vasodilated. Comparison: ??No previous study in our vascular lab da tabase for comparison. Electronically Signed by: LUCILA FLYNN on 2019-01-24 09:16:20 AM VB Text End of Report [facility] Report Specimen (Source) Anatomical Collection Method Collection Time Re ceived Time Location / / Volume Laterality 01/22/2019 3:06 PM EST Marivel Gilliam MD VASCULAR ORDERABLES Performing Organization Address City/State/ZIP Code Phon e Number [facility] documented in this encounter Visit Diagnoses Diagnosis Intermittent claudication Peripheral vascular disease, unspecified documented in this encounter Care Teams Instructor Military Science Relationship Specialty Start Date End Date Pricila Geller APRN PCP - General Family Medicine 11/24/18 [place] [address] documented as of this encounter
--- OUTSIDE RECORDS SUMMARY | 2022-05-20 07:40 | XMS_ITS | Encounter Summary ---
:1955 Author Organization [facility] [place] [address] Care Team Providers Name Role Phone Pricila Geller APRN Primary Care Provider Encounter Details Date Type Department Care Team Description 11/29/2018 Orders Only Vascular Surgery at [facility] I ntermest[facility] [place] [address] Social History Tobacco Use Types Packs/Day Years [...] PA [facility] Cardiology Dept [place], [place] [address] (Wo rk) Scheduled Procedures Name Priority Associated Diagnoses Date/Time EGD, UPPER GI ENDOSCOPY Chronic cough Heartburn RUQ pain Fecal urgency Dysphagia, unspecifi ed type History of hepatitis C COLONOSCOPY, DIAGNOSTIC Chronic cough Heartburn RUQ pain Fecal urgency Dysphagia, unspecifi ed type History of hepatitis C documented as of this encounter Results HARMAN, legs, multiple levels (01/22/2019 3:06 PM EST) Component Value Ref Test Analysis Performed At [facility] gist Range Method Time Signature VB Text Department: Vascular Surgery Lab [facility]AS[facility] Report Patient: [id number] (MEDINA KHAN) CPT: 48122 ICD10: M79.604;I73.9 Referring Physician: MARIVEL GILLIAM ?? [...] unspecified documented in this encounter Care Teams Manager Fitness Relationship Specialty Start Date End Date Pricila Geller APRN PCP - General Family Medicine 11/24/18 [address] [place] [address] documented as of this encounter
--- OUTSIDE RECORDS SUMMARY | 2022-05-20 07:40 | XMS_ITS | Encounter Summary ---
:1955 [place] [address] Care Team Providers Name Role Phone BenjamínPricila marcus APRN Primary Care Provider Encounter Details Date Type Department Care Team Description 03/21/2019 [facility]illary [facility] [place] [address] ORTHOPAEDIC SURGERY [phone] [place], [place] [address] (Wo rk) Social History Tobacco [...] Gianna Lorenzana PA [facility] Cardiology Dept [place], [place] [address] (Wo rk) Scheduled Procedures [...] Associated Diagnosis Comme nts FILM LIBRARY Routine 03/21/2019 12:00 AM Results for this STORAGE ONLY DX HIP EDT procedur e are in the results section. documented in this encounter Results Film Library- Storage Only DX Hip (03/21/2019 12:00 AM EDT) Specimen (Source) Anatomical Location Collection Method / Collectio n Time Received Time / Laterality Volume Narrative RAD - 04/20/2019 3:18 PM EDT This exam is auto-finalizing. It's purpo se is for storage only. Beltran Conrad MD Dada FILM LIBRARY ORDERABLES Performing Organization Address City/State/ZIP Code Phon e Number [place], [place] documented in this encounter Visit Diagnoses Not on filedocumented in this encounter Care Teams Director [place] Sales Relationship Specialty Start Date End Date Pricila Geller APRN PCP - General Family Medicine 11/24/18 [address] [place] [address] documented as of this encounter
--- OUTSIDE RECORDS SUMMARY | 2022-05-20 07:40 | XMS_ITS | Encounter Summary ---
:1955 Author Organization [facility] [place] [address] Care Team Providers Name Role Phone None Primary Care Provider Unavailable Encounter Details Date Type Department Care Team Description 09/22/2017 Telephone Cardiology at [facility] Reji Calero MD [facility] [phone] CARDIOLOGY DEPT [phone] [place], [place] [address] (Wo rk) Social History Tobacco [...] this encounter Miscellaneous Notes Telephone Encounter - Reji Calero - 09/22/2017 8:27 PM EDT Mr. Khan presented to [facility] ED with worsening CHF symptoms. CXR shows pulm vascular congestion and he is overloaded on exam, once again in afib with RVR. Trops +. [facility] ED calling requesting consult regarding type and timing of ischemia eval. Given lack of clear ischemia workup before and lack of ischemia symptoms, I recommended stress imaging once he has been adequately managed for chf. They will call if there is severe ischemia or he fails to respond to medical mgmt for hf. Reji Calero MD 09/22/2017 8:29 PM documented in this encounter Plan of Treatment Upcoming Encounters Date Type Specialty Care Team Description 06/16/2022 Laboratory Appointment Lab 06/16/2022 Office Visit Cardiology Gianna Lorenzana PA [facility] Cardiology Dept [place], [place] [address] (Wo rk) Scheduled Procedures Name Priority Associated Diagnoses Date/Time EGD, UPPER GI ENDOSCOPY Chronic cough Heartburn RUQ pain Fecal urgency Dysphagia, unspecifi ed type History of hepatitis C COLONOSCOPY, DIAGNOSTIC Chronic cough Heartburn RUQ pain Fecal urgency Dysphagia, unspecifi ed type History of hepatitis C documented as of this encounter Visit Diagnoses Not on filedocumented in this encounter Care Teams Return Agent [place] Relationship Specialty Start Date End Date None PCP - General 08/30/17 11/23/18 None documented as of this encounter
--- OUTSIDE RECORDS SUMMARY | 2022-05-20 07:40 | XMS_ITS | Encounter Summary ---
:1955 Author Organization [facility] [place] [address] Care Team Providers Name Role Phone Pricila Geller APRN Primary Care Provider Reason for Referral Diagnostic Test (Routine) - Closed Specialty Diagnoses / Procedures Referred By Contact Refer red To Contact Radiology Diagnoses Thoracic aortic aneurysm without rupture Catina Nicholson APRN [facility] Rad Ct Scan Procedures CT Angiogram Chest Abdomen Pelvis With Contrast [facility] [place] [address] [place] [address] Referral ID Status Reason Start Date Expiration Date Visits V isits Requested Authorized [id number] Closed Specialty 01/22/2019 01/22/2020 1 1 Service Requested Reason for Visit Reason Comments Claudication pt here for bilat leg pain p t states hematoma on the upper thigh pt denies trauma pt states femo ral nerve was damages someyrs back pt has had card cath last one in 20 14 Consultation (Routine) - Specialty Diagnoses / Procedures Referred By Contact Refer red To Contact Vascular Surgery Diagnoses BILATERAL CLAUDICATION Pricila Geller APRN [facility] Vascular Surg 3v [address], [place] [id number] [place] [phone] Phone: Referral ID Status Reason Start Date Expiration Date Visits V isits Requested Authorized [id number] Consult, 11/24/2018 11/24/2019 6 6 [facility] Encounter Details Date Type Department Care Team Description 01/22/2019 Office Visit Vascular Surgery at Annamaria Lawson, Th oracic aortic [facility] BULLET CHARGING MACHINE OPERATOR aneurysm without [facility] [address] [place] VASCULAR SURGERY [address] [place] [address] [phone] Social History Tobacco Use Types Packs/Day Years [...] Sign Reading Time Taken Comments Blood Pressure 126/80 01/22/2019 3:40 PM EST Pulse 79 01/22/2019 3:40 PM EST Temperature - - Respiratory Rate 18 01/22/2019 3:40 PM EST Oxygen Saturation - - Inhaled Oxygen Concentration - - Weight 73.5 kg (162 lb) 01/22/2019 3:40 PM EST Height 175.3 cm (5' 9) 01/22/2019 3:40 PM EST Body Mass Index 23.92 01/22/2019 3:40 PM EST documented in this encounter Progress Notes Annamaria Lawson APRN - 01/22/2019 3:30 PM EST This is a new patient to the practice who is being evaluated for claudication/ groin pain hematomas and was referred by Pricila Geller APRN. 64 yo male with Afib, CHF, TAA, HTN, AVR and MVR x2 replacement. C/o groin hematomas intermittently first 4 months ago in left groin and right groin hematomas x 3 in right groin. Last episode being 3 weeks ago. States that INR was in therapeutic range except for 2 times Once INR 7.6 and another time 3.8. Denies trauma to areas. CT scans at the time revealed hematomas. Difficult historian. Accompaniedby . He denies chest pain, DVT, leg pain with walking, rest pain, tissue loss C.o SOB and cough for 6 months.. States CVA Sep 2017 with left hand weakness for cardio embolic event. He does not seemto be aware of echo finding for CVH or aortic arch aneurysm of 5.3 cm. Denies upper back or chest pain or family history of AAA Admission 08/30-09/08/2017: Acute systolic congestive heart failure ? Prior echo from [facility] 10/2015: EF 40-45%, mean aortic valve gradient 22mmHg [place] echo Aug 2017: EF 20-25%, DVI 0.35, ascending aorta 4.2cm, aortic arch 5.3cm Current echo [facility] 08/31/17:EF 31%, septum paradoxical motion (dys-synchrony present), mod to severe LVH, not dilated by linear diameter, severe LAE mod reduced RV function, mod pHTN. Mean trans aortic gradient in mid 20's, DVI 0.22, transmitral gradient 6 at 95 bpm ? Atrial fibrillation ? Stroke ? Right hemispheric, left hand/arm symptoms. Presumably cardioemoblic in patient with valvular afib who had discontinued warfarin. ? Valvular disease ? - mitral valve prolapse, repair ([place]) 11/07/09: P2 resection, sliding annuloplasty, placement of #38 Future band. - [facility] 12/01/10 : mitral valve replacement with a #33 EPIC IC procedure, tricuspid valve repair with a #32 MC3 ring, MAZE - AVR 2013. ([facility]): no records available. ? Aneurysm of aortic arch ? Noted on echo at [facility] 5.3cm (08/30/2017) ?? PMHx: Past Medical History: Diagnosis Date ??? Alcohol use disorder ??? Atrial fibrillation ??? CHF (congestive heart failure) ??? Hypertension ??? Mitral valve prolapse PSxHx: Past Surgical History: Procedure Laterality Date ??? AORTIC VALVE REPLACEMENT ??? GASTRIC FUNDOPLICATION ??? MITRAL VALVE REPLACEMENT ??? TOTAL HIP ARTHROPLASTY ??? TRICUSPID VALVULOPLASTY Family Hx: Family History Problem Relation Age of Onset ??? Emphysema Mother ??? Hypertension Mother ??? Alcohol Abuse Father ??? Aneurysm Father ??? Hypertension Father ??? Substance Abuse Brother Social Hx: Social History Tobacco Use ??? Smoking status: Never Smoker ??? Smokeless tobacco: Never Used Substance Use Topics ??? Alcohol use: No Comment: Former heavy daily user quit in 2013 Medications: Medications 01/22/19 1611 Medication Sig Taking? [id number] apixaban 5 mg tablet Take 5 mg by mouth 2 times daily. Yes aspirin 81 mg Tablet, Chewable Take 81 mg by mouth daily. Yes atorvastatin (LIPITOR) 80 mg Tablet Take 1 tablet by mouth every evening. Yes meTOPROLOL succinate (TOPROL-XL) 100 mg Tablet Sustained Release 24 hr Take 1 tablet by mouth daily.Yes torsemide (DEMADEX) 20 mg Tablet Take 2 tablets by mouth daily. Yes losartan (COZAAR) 100 mg Tablet Take 0.5 tablets by mouth daily. Yes Allergies: No Known Allergies Review of Systems: Constitutional (weight change, fever) - Denies Neuro (dizziness, seizures, numbness, tingling) - left hand weakness Eyes (vision) - Denies Ears, nose, throat (hearing) - Denies Cardiovascular (CP) - AFIB Respiratory (SOB) - SOB, cough GI (abd pain, nausea, emesis, blood in stool) - Denies (hematuria, dysuria, frequency) - Denies Muscoloskeletal (extremity pain, weakness) -left hand weakness Skin (ulcers, rashes) - denies All other ROS negative Physical Exam: Vitals: Most Recent Vitals: 01/22/19 1540 BP: 126/80 Pulse: 79 Resp: 18 PainSc: 0 - No pain General: NAD, appears well Neuro: Alert and oriented, motor sensory grossly intact slight left hand grasp weakness Lungs: CTA Heart: Irregular 1-2/6 systolic murmur and click. Abd: Soft, NT, ND, no palpable pulsatile masses Extremity - [place], warm, no ulceration, brisk capillary refill, no edema B LE hyperpigmentation RightD1 toe nail ecchymosis. No evidence of hematoma B groin on PE. Vascular: R L Carotid 2/2 bruit (n) 2/2 bruit (n) Radial 2/2 2/2 Femoral 2/2 2/2 Popliteal 2/2 2/2 DP 2/2 2/2 PT 2/2 2/2 HARMAN's Right ?Pressure (mm Hg) ?? HARMAN ??Waveform ?TBI ?? Brachial Artery ?122 ? Common Femoral Artery ?Triphasic ? Popliteal Artery ? Triphasic ? Dorsalis Pedis (Ankle) Artery ?128 ? 1.02 ??Triphasic ? Posterior Tibial (Ankle) Artery ??142 ? 1.14 ??Triphasic ? Great Toe ?76 ? 0.61? Left ? Pressure (mm Hg) ?? HARMAN ??Waveform ?TBI ?? Brachial Artery ?125 ? Common Femoral Artery ?Triphasic ? Popliteal Artery ? Triphasic ? Dorsalis Pedis (Ankle) Artery ?131 ? 1.05 ??Triphasic ? Posterior Tibial (Ankle) Artery ??142 ? 1.14 ??Triphasic ? Great Toe ?86 ? 0.69? Interpretation: ?? RIGHT: No significant lower extremity arterial occlusive disease identified at rest. Normal ankle/brachial pressure ratios and ankle Doppler waveforms. Toe/brachial index slightly lower than ankle/brachial index indicates presence of mild arterial occlusive disease in the foot. Limited duplex of the right groin; no evidence of hematoma in the right groin. ? LEFT: No significant lower extremity arterial occlusive disease identified at rest. Normal ankle/brachial pressure ratios and ankle Doppler waveforms. Toe/brachial index slightly lower than ankle/brachial index indicates presence of mild arterial occlusive disease in the foot. ?? Assessment/Plan: 64 yo male with Afib, CHF, TAA, HTN, AVR and MVR x2 replacement. C/o groin hematomas intermittently first 4 months ago in left groin and right groin hematomas x 3 in right groin. Last episode being 3 weeks ago. HARMAN's unremarkable for arterial disease. Right groin duplex without evidence of hematoma. No physical evidence of hematoma. Of importance is evidence on echo for aortic arch aneurysm 5.3 cm. Explained to patient and family. Of finding And recommend CTA chest, abd/pjelvis and see one of our vascular surgeons in the next couple of months. Patient understand and agrees to f/u with CTA C/A/P in near future at [facility] for evaluation or aortic arch aneurysm. documented in this encounter Plan of Treatment Upcoming Encounters Date Type Specialty Care Team Description 06/16/2022 Laboratory Appointment Lab 06/16/2022 Office Visit Cardiology Gianna Lorenzana PA [facility] Cardiology Dept [place], [place] [address] (Wo rk) Scheduled Procedures Name Priority Associated Diagnoses Date/Time EGD, UPPER GI ENDOSCOPY Chronic cough Heartburn RUQ pain Fecal urgency Dysphagia, unspecifi ed type History of hepatitis C COLONOSCOPY, DIAGNOSTIC Chronic cough Heartburn RUQ pain Fecal urgency Dysphagia, unspecifi ed type History of hepatitis C documented as of this encounter Results CT Angiogram Chest Abdomen [...] please contact e number below. Catina Nicholson APRN IMG CT ORDERABLES documented in this encounter Visit Diagnoses Diagnosis Thoracic aortic aneurysm without rupture Thoracic aneurysm without mention of rup ture Thoracic aortic aneurysm without rupture Thoracic aneurysm without mention of rup ture documented in this encounter Care Teams Farm Machinery Mechanic Relationship Specialty Start Date End Date Pricila Geller APRN PCP - General Family Medicine 11/24/18 [address] [place] [address] documented as of this encounter
--- OUTSIDE RECORDS SUMMARY | 2022-05-20 07:40 | XMS_ITS | Encounter Summary ---
:1955 Author Organization [facility] [place] [address] Care Team Providers Name Role Phone BenjamínPricila marcus JOELLE Primary Care Provider Encounter Details Date Type Department Care Team Description 01/24/2019 Telephone Vascular Surgery at [facility] [place] [address] Social History Tobacco Use Types Packs/Day [...] this encounter Miscellaneous Notes Telephone Encounter - Bonita Bolanos - 01/24/2019 1:14 PM EST YELLOW/PINK/RECALL LIST: Yellow PROVIDER: Lulu RECALL: 1-2 mo f/up w/ MD and CTA C/A/P NOTES: Left message on voicemail, Needs Safety Qs answered documented in this encounter Plan of Treatment Upcoming Encounters Date Type Specialty Care Team Description 06/16/2022 Laboratory Appointment Lab 06/16/2022 Office Visit Cardiology Gianna Lorenzana PA [facility] er Cardiology Dept [place], [place] [address] (Wo rk) Scheduled Procedures Name Priority Associated Diagnoses Date/Time EGD, UPPER GI ENDOSCOPY Chronic cough Heartburn RUQ pain Fecal urgency Dysphagia, unspecifi ed type History of hepatitis C COLONOSCOPY, DIAGNOSTIC Chronic cough Heartburn RUQ pain Fecal urgency Dysphagia, unspecifi ed type History of hepatitis C documented as of this encounter Visit Diagnoses Not on filedocumented in this encounter Care Teams Developmental Writing Instructor Relationship Specialty Start Date End Date Pricila Geller APRN PCP - General Family Medicine 11/24/[address] [place] [address] documented as of this encounter
--- OUTSIDE RECORDS SUMMARY | 2022-05-20 07:40 | XMS_ITS | Encounter Summary ---
:1955 Author Organization [facility] [place] [address] Care Team Providers Name Role Phone Pricila Geller APRN Primary Care Provider Encounter Details Date Type Department Care Team Description 01/25/2019 Orders Only Vascular Surgery at [facility] [place] [address] Social History Tobacco Use Types Packs/Day [...] PA [facility] Cardiology Dept [place], [place] [address] (Wo rk) Scheduled Procedures Name Priority Associated Diagnoses Date/Time EGD, UPPER GI ENDOSCOPY Chronic cough Heartburn RUQ pain Fecal urgency Dysphagia, unspecifi ed type History of hepatitis C COLONOSCOPY, DIAGNOSTIC Chronic cough Heartburn RUQ pain Fecal urgency Dysphagia, unspecifi ed type History of hepatitis C documented as of this encounter Visit Diagnoses Not on filedocumented in this encounter Care Teams Airfield Operations Specialist Relationship Specialty Start Date End Date Pricila Geller APRN PCP - General Family Medicine 11/24/18 [address] [place] [address] documented as of this encounter
--- OUTSIDE RECORDS SUMMARY | 2022-05-20 07:40 | XMS_ITS | Encounter Summary ---
:1955 Author Organization [facility] [place] [address] Care Team Providers Name Role Phone None Primary Care Provider Unavailable Encounter Details Date Type Department Care Team Description 09/22/2017 External Results DH Patient Placement Reji Calero MD [facility] [place] [phone] CARDIOLOGY DEPT [phone] [place], [place] [address] (Wo rk) Social History Tobacco [...] Lorenzana PA [facility] Cardiology Dept [place], [place] [address] (Wo rk) Scheduled Procedures Name Priority Associated Diagnoses Date/Time EGD, UPPER GI ENDOSCOPY Chronic cough Heartburn RUQ pain Fecal urgency Dysphagia, unspecifi ed type History of hepatitis C COLONOSCOPY, DIAGNOSTIC Chronic cough Heartburn RUQ pain Fecal urgency Dysphagia, unspecifi ed type History of hepatitis C documented as of this encounter Procedures Procedure Name Priority Date/Time Associated Diagnosis Comme nts ECG SCAN Routine 09/22/2017 ECG SCAN Routine 09/22/2017 documented in this encounter Results Scan Doc: ECG (09/22/2017) Narrative This result has an attachment that is no t available. Reji Calero MD MEDIA MGR SCAN EXT ORDR/RSLT Scan Doc: ECG (09/22/2017) Narrative This result has an attachment that is no t available. Reji Calero MD MEDIA MGR SCAN EXT ORDR/RSLT documented in this encounter Visit Diagnoses Not on filedocumented in this encounter Care Teams Stitcher Feeder Relationship Specialty Start Date End Date None PCP - General 08/30/17 11/23/18 None documented as of this encounter
--- OUTSIDE RECORDS SUMMARY | 2022-05-20 07:40 | XMS_ITS | Encounter Summary ---
:1955 Author Organization [facility] [address] Care Team Providers Name Role Phone BenjamínPricila marcus JOELLE Primary Care Provider Reason for Visit Reason Comments Aneurysm (Aortic) AORTIC ARCH ANEURYSM Encounter Details Date Type Department Care Team Description 04/02/2019 Office Visit Vascular Surgery at Baljit Goddard MD Ascending aortic [facility] aneurysm [facility] DR Gallegos VASCULAR SURGERY [place] [id number] 6 [phone] Social History Tobacco Use Types Packs/Day Years [...] Time Taken Comments Blood Pressure 107/74 04/02/2019 4:00 PM EDT Pulse 78 04/02/2019 4:00 PM EDT Temperature - - Respiratory Rate 18 04/02/2019 4:00 PM EDT Oxygen Saturation - - Inhaled Oxygen Concentration - - Weight 72.6 kg (160 lb) 04/02/2019 4:00 PM EDT Height 175.3 cm (5' 9) 04/02/2019 4:00 PM EDT Body Mass Index 23.63 04/02/2019 4:00 PM EDT documented in this encounter Progress Notes Leonor Goddard MD - 04/02/2019 3:30 PM EDT Vascular Surgery Clinic Visit April 03, 2019 CC: Patient is a 64 y.o. male who is here for follow up of aortic aneurysm. Last seen by Annamaria Lawson on 01/22/19. Returns today following CTA due to finding of 5.3cm aortic arch aneurysm reportedly noted on OSH echo in 2017. Has undergone CTA for further evaluation. Review of the CT scan does not show any evidence of arch aneurysm. He does have ascending aortic aneurysm which is < 5cm in max diameter (~4.4cm at proximal ascending aorta on my measurement). IMPRESSION 1. Cardiomegaly, with severely dilated left [...] mm nonobstructing left lower pole renal calculus. 64yo male s/p MVR and AVR with known ascending aortic aneurysm. No evidence of aortic arch aneurysm on today's CT scan. He can be followed with cardiology for his valvular disease and ascending aortic aneurysm. Can follow up with vascular surgery on an as needed basis. I spent 10 minutes of this 15 minute visit counseling the patient on the plan and treatment options. Leonor Goddard MD documented in this encounter Plan of Treatment Upcoming Encounters Date Type Specialty Care Team Description 06/16/2022 Laboratory Appointment Lab 06/16/2022 Office Visit Cardiology Gianna Lorenzana PA [facility] Cardiology Dept [place] [address] (Wo rk) Scheduled Procedures Name Priority Associated Diagnoses Date/Time EGD, UPPER GI ENDOSCOPY Chronic cough Heartburn RUQ pain Fecal urgency Dysphagia, unspecifi ed type History of hepatitis C COLONOSCOPY, DIAGNOSTIC Chronic cough Heartburn RUQ pain Fecal urgency Dysphagia, unspecifi ed type History of hepatitis C documented as of this encounter Visit Diagnoses Diagnosis Ascending aortic aneurysm Thoracic aneurysm without mention of rup ture documented in this encounter Care Teams Sewing Teacher Relationship Specialty Start Date End Date Pricila Geller APRN PCP - General Family Medicine 11/24/18 [address] [place] [address] documented as of this encounter
--- OUTSIDE RECORDS SUMMARY | 2022-05-20 07:40 | XMS_ITS | Encounter Summary ---
:1955 Author Organization [facility] [place] [address] Care Team Providers Name Role Phone BenjamínPricila marcus APRN Primary Care Provider Encounter Details Date Type Department Care Team Description 04/02/2019 Laboratory Appointment Lab 3L [facility] Thoracic aortic aneurysm without rupture; [facility] Chronic [place] [id number] Social History Tobacco Use Types Packs/Day Years [...] Cardiology Gianna Lorenzana PA [facility] Cardiology Dept [place], [place] [address] (Wo rk) Scheduled Procedures Name Priority Associated Diagnoses Date/Time EGD, UPPER GI ENDOSCOPY Chronic cough Heartburn RUQ pain Fecal urgency Dysphagia, unspecifi ed type History of hepatitis C COLONOSCOPY, DIAGNOSTIC Chronic cough Heartburn RUQ pain Fecal urgency Dysphagia, unspecifi ed type History of hepatitis C documented as of this encounter Procedures Procedure Name Priority Date/Time Associated Comments Diagnosis TSH Routine 04/02/2019 1:57 PM Chronic systolic Resul ts for this EDT heart failure procedure are in the results section. PRO-BRAIN NATRIURETIC STAT 04/02/2019 1:57 PM Chronic systo lic Results for this PEPTIDE EDT heart failure procedure are in the results section. BASIC METABOLIC PANEL STAT 04/02/2019 1:57 PM Chronic systo lic Results for this (NON-FASTING) EDT heart failure procedure are in the results section. documented in this encounter Results (ABNORMAL) Basic Metabolic Panel (non-fasting) (04/02/2019 1:57 PM EDT) P athologist Signature Glucose Lvl 71 65 - 199 [facility] mg/dL [facility] Comment: Diabetes: >=200 mg/dL plus symp toms BUN 33 (H) 10 - 20 mg/dL [facility] Creatinine 1.48 0.80 - 1.50 mg/dL [facility] Sodium 139 135 - 145 mmol/L [facility] Potassium 4.3 3.5 - 5.0 mmol/L [facility] Comment: Please note: ??Patients with WBC >100,00 0 may have falsely elevated Potassium levels. ??For accurate Potassium quantif ication in these patients send serum separator tube (gold top) for subsequent determinations. ??Contact the Clinical Chemistry Laboratory if there are any qu estions. Chloride 97 (L) 98 - 107 mmol/L [facility] CO2 29 22 - 31 mmol/L [facility] Anion Gap 13 5 - 15 mmol/L [facility] Calcium 10.7 (H) 8.5 - 10.5 mg/dL [facility] Estimated GFR 49 (L) >=60 mL/min/1.73 m?? [facility] Comment: The eGFR was calculated using the CKD-EP I equation. As with all creatinine based estimates of kidney function, eGFR values calculated with the CKD-EPI equation are not accurate in patients wi th acute kidney failure, extremes of body mass or the acutely ill. http://[employer] eGFR 56 (L) >=60 mL/min/1.73 m?? [facility] Comment: The eGFR was calculated using the CKD-EP I equation. As with all creatinine based estimates of kidney function, eGFR values calculated with the CKD-EPI equation are not accurate in patients wi th acute kidney failure, extremes of body mass or the acutely ill. http://[employer] Specimen Anatomical Collection Method Collection Time Receive d Time (Source) Location / / Volume Laterality Blood specimen 04/02/2019 1:57 PM 019 2:09 (specimen) EDT PM EDT Resulting Agency Comment Spec In Lab Lali Whelan MD CHEMISTRY ORDERABLES Performing Organization Address City/[facility] [address] (ABNORMAL) pro-Brain Natriuretic Peptide (04/02/2019 1:57 PM EDT) P athologist Signature ProBNP 1,150 (H) <=125 [facility] pg/mL [facility] Specimen Anatomical Collection Method Collection Time Receive d Time (Source) Location / / Volume Laterality Blood specimen 04/02/2019 1:57 PM 019 2:09 (specimen) EDT PM EDT Resulting Agency Comment Spec In Lab Lali Whelan MD CHEMISTRY ORDERABLES Performing Organization Address City/[facility]/[place] [address] TSH (04/02/2019 1:57 PM EDT) P athologist Signature TSH 1.09 0.27 - 4.20 [facility] mcIU/mL [facility] Specimen Anatomical Collection Method Collection Time Receive d Time (Source) Location / / Volume Laterality Blood specimen 04/02/2019 1:57 PM 019 2:09 (specimen) EDT PM EDT Resulting Agency Comment Spec In Lab Lali Whelan MD CHEMISTRY ORDERABLES Performing Organization Address City/[facility]/[place] [address] documented in this encounter Visit Diagnoses Diagnosis Thoracic aortic aneurysm without rupture Thoracic aneurysm without mention of rup ture Chronic systolic heart failure documented in this encounter Care Teams Personal Counselor Relationship Specialty Start Date End Date Pricila Geller APRN PCP - General Family Medicine 11/24/18 [place] [address] documented as of this encounter
--- OUTSIDE RECORDS SUMMARY | 2022-05-20 07:41 | XMS_ITS | Encounter Summary ---
:1955 [place] [address] Care Team Providers Name Role Phone None Primary Care Provider Unavailable Encounter Details Date Type Department Care Team Description 08/30/2017 [facility] [place] [address] [place] [address] [phone] (Wo rk) Social History Tobacco Use Types [...] 30 tablet 3 02/15/2020 Tablet mouth daily. spironolactone (ALDACTONE) Take 1 tablet by 90 tablet 3 09/08/2017 25 mg Tablet mouth daily. lisinopril Take 1 tablet by 90 tablet 3 09/08/2017 09/08/20 17 (PRINIVIL;ZESTRIL) 20 mg mouth daily. Tablet warfarin (COUMADIN) 7.5 mg Take 1 tablet by 30 tablet 3 01/22/2019 Tablet mouth daily. losartan (COZAAR) 100 mg Take 0.5 tablets by 90 tablet 3 06/15/2019 Tablet mouth daily. documented as of this encounter Plan of Treatment Upcoming Encounters Date Type Specialty Care Team Description 06/16/2022 Laboratory Appointment Lab 06/16/2022 Office Visit Cardiology Gianna Lorenzana PA [facility] er Cardiology Dept [place], [place] [address] (Wo rk) Scheduled Procedures Name [...] Associated Diagnosis Comme nts FILM LIBRARY Routine 08/30/2017 12:00 AM Pain Results for this STORAGE ONLY DX EDT procedure ar e in CHEST the results section. documented in this encounter Results Film Library- Storage Only DX Chest (08/30/2017 12:00 AM EDT) Specimen (Source) Anatomical Location Collection Method / Collectio n Time Received Time / Laterality Volume Narrative RAD - 08/30/2017 4:56 AM EDT This exam is for storage only and is aut o-finalizing. Carlo Perdomo MD [facility] FILM LIBRARY ORDERABLES Performing Organization Address City/State/ZIP Code Phon e Number RAD [place], [place] documented in this encounter Visit Diagnoses Diagnosis Pain Generalized pain documented in this encounter Care Teams Video Poker Floorman Relationship Specialty Start Date End Date None PCP - General 08/30/17 11/23/18 None documented as of this encounter
--- OUTSIDE RECORDS SUMMARY | 2022-05-20 07:41 | XMS_ITS | Encounter Summary ---
:1955 [place] [address] Care Team Providers Name Role Phone None Primary Care Provider Unavailable Encounter Details Date Type Department Care Team Description 08/30/2017 External Results PACU at [facility] [place] [address] Social History Tobacco Use Types Packs/Day [...] 06/16/2022 Office Visit Cardiology Gianna Lorenzana PA [facility] Cardiology Dept [place], [place] [address] (Wo rk) Scheduled Procedures Name [...] Associated Diagnosis Comme nts ECG SCAN Routine 08/30/2017 ECG SCAN Routine 08/30/2017 documented in this encounter Results Scan Doc: ECG (08/30/2017) Narrative This result has an attachment that is no t available. Historical Provider MEDIA MGR SCAN EXT ORDR/RSLT Scan Doc: ECG (08/30/2017) Narrative This result has an attachment that is no t available. Historical Provider MEDIA MGR SCAN EXT ORDR/RSLT documented in this encounter Visit Diagnoses Not on filedocumented in this encounter Care Teams Administrative Assistant Coordinator Relationship Specialty Start Date End Date None PCP - General 08/30/17 11/23/18 None documented as of this encounter
--- OUTSIDE RECORDS SUMMARY | 2022-05-20 07:41 | XMS_ITS | Encounter Summary ---
:1955 Author Organization [facility] [place] [address] Care Team Providers Name Role Phone None Primary Care Provider Unavailable Reason for Referral Occupational Therapy (Routine) - Closed Specialty Diagnoses / Procedures Referred By Contact Refer red To Contact Occupational Therapy Diagnoses Cerebrovascular accident (CVA) due to embolism of right middle cerebral artery Yogesh Regan DO [facility] Ot Rehab [facility] CARDIOLOGY DEPT [address] [phone] Phone: Fax: Referral ID Status Reason Start Date Expiration Date Visits V isits Requested Authorized [id number] Closed Evaluate and 09/08/2017 09/08/2018 1 1 Treat Reason for Visit Auth/Cert Specialty Diagnoses / Procedures Referred By Contact Refer red To Contact Diagnoses CHF (congestive heart failure) CHF, DIASTOLIC DYSFUNCTION Referral ID Status Reason Start Date Expiration Date Visits Requ ested Visits Authorized [id number] 1 1 Encounter Details Date Type Department Care Team Description 08/30/2017 - Hospital Cardiac Special Brian Apodaca MD [facility] [place] [address] Acute systolic congestive heart failure; 09/08/2017 Encounter Care Unit Jae Gore MD [facility] [place] [address] Cerebrovascular accident (CVA), unspecif ied mechanism; [facility] Atrial fi brillation, unspecified type; Hospital Cerebrovascular accident (CV A) due to embolism of right [place] [address] Social History Tobacco Use Types Packs/Day Years [...] Sign Reading Time Taken Comments Blood Pressure 148/74 09/08/2017 12:24 PM EDT Pulse 99 09/08/2017 12:24 PM EDT Temperature 36.4 ??C (97.5 ??F) 09/08/2017 12:24 PM EDT Respiratory Rate 18 09/08/2017 12:24 PM EDT Oxygen Saturation 97% 09/08/2017 12:24 PM EDT Inhaled Oxygen Concentration - - Weight 71.6 kg (157 lb 13.6 oz) 09/08/2017 6:57 AM EDT Height 175.3 cm (5' 9) 08/30/2017 8:46 PM EDT Body Mass Index 23.31 08/30/2017 8:46 PM EDT documented in this encounter Discharge Summaries Jae Feldman MD - 09/07/2017 3:17 PM EDT Inpatient - Discharge Summary Patient Name: Cong Khan Patient Age: 62 y.o. Birthdate: 1955 Admit date: 08/30/2017 Discharge date and time: 09/08/2017 Attending Physician: No att. providers found Follow-up Recommendations for Providers: - follow-up INR, please titrate warfarin to goal INR of 2-3, he should remain on lifelong anticoagulation and is not a candidate for novel oral anticoagulants because this is valvular atrial fibrillation. - repeat BMP on 09/13 and titrate Torsemide and Losartan as needed. Creatinine on discharge was 1.37, with an apparent baseline around 1.0. 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 [facility] echo showed aortic arch of ~4cm. - repeat TTE in 3 months while on proper medical therapy to re-assess LVEF (for consideration of biventricular pacing, primary prevention AICD) Discharge Diagnoses (Hospital Problems) and Secondary Diagnoses (Chronic Problems): Active Hospital Problems Diagnosis ??? Acute systolic congestive heart failure Prior echo from [facility] 10/2015: EF 40-45%, mean aortic valve gradient 22mmHg [place] echo Aug 2017: EF 20-25%, DVI 0.35, ascending aorta 4.2cm, aortic arch 5.3cm Current echo [facility] 08/31/17:EF 31%, septum paradoxical motion [...] Valvular disease - mitral valve prolapse, repair ([place], [place]) 11/07/09: P2 resection, sliding annuloplasty, placement of #38 Future band. - [facility] 12/01/10 : mitral valve replacement with a #33 EPIC IC procedure, tricuspid valve repair with a #32 MC3 ring, MAZE - AVR 2013. ([facility]): no records available. ??? Aneurysm of aortic arch Noted on echo at [facility] 5.3cm (08/30/2017) Resolved Hospital Problems Diagnosis Date Resolved No resolved problems to display. Active Non-Hospital Problems Diagnosis ??? Hypertension ??? H/O mitral valve replacement with tissue graft ??? H/O aortic valve replacement with porcine valve Operations/Major Procedures: Operations: * No surgery found * Other Major Procedures: none History of Presentation: (from admission HPI) Mr. Cong Khan is a 62 y/o man with a PMHx of systolic heart failure (EF 20%), atrial fibrillation (not on anticoagulation), mitral valve disease (s/p bioprosthetic valve replacement), and aortic valve disease (s/p bioprosthetic valve replacement) who was admitted for an acute systolic heart failure exacerbation. He reports feeling progressively short of breath over the last four months mostly limited to exertion. Denies issues when lying flat and uses two pillows to sleep consistent with the last several years. He does report having a persistent dry cough during this same time interval. Denies leg swelling or paroxysmal nocturnal dyspnea. Last night he adds I could not sleep, the shortness of breath was even there when I was sitting still. His left hand also developed numbness and now he cannot form a fist or use it normally. Denies visual abnormalities or gait issues. No prior historyof stroke or similar issues. ?? He went to [facility] ([facility]) this morning at 0400 where he was found to have an atrial fibrillation rhythm with tachycardic heart rates. He was started on a heparin drip foranticoagulation. A proBNP was elevated at 7100. Troponin was also elevated at 0.11 but there were noconcerning EKG findings or active chest pain. Cong was provided aspirin 324 mg and sublingual nitroglycerin. Chest x-ray was notable for cardiomegaly and right sided pleural effusion. An echocardiogram was notable for an estimated ejection fraction of 20-25% with diffuse wall hypokinesis and moderate aortic reguritation. Heart rates were controlled with a diltiazem drip later weaned off when oral metoprolol was administered. He was diuresed with furosemide achieving a urinary output of over 4.5 L.His shortness of breath improved and he was weaned to minimal nasal cannula oxygen requirements. ?? Regarding his valve disease history, Cong has had his mitral valve repaired and eventually replaced (bioprosthetic) during several procedures dating back to 2009. His aortic valve was also apparentlyreplaced in 2013 also with a bioprosthetic valve. He belies his tricuspid valve was repaired at somepoint. Denies history of intravenous drug abuse and has no known history of endocarditis. His atrialfibrillation dates back many years but he says he has not been on warfarin for over three years. He says he has moved so many times that he has not followed up regularly with a doctor who can prescribe it. A Maze procedure was reportedly performed three years ago. Denies any worsening of baseline symptomatic palpitations recently. Hospital Course: Mr. Khan was admitted for heart failure exacerbation and new ischemic stroke in the setting of atrial flutter/fibrillation. Please see below for full hospital course. #Cardiomyopathy #Acute on Chronic Systolic Heart Failure Mr. Khan presented to the outside hospital with symptoms of heart failure with GARCIA and orthopnea. He initially presented to [facility] where he was found to be in atrial fibrillation/flutter with RVR and an elevated BNP. He was transferred here where diuresis was continued and neurohormonal blockade was initiated. The exact etiology and timing of his cardiomyopathy is uncertain, from review of cardiologyrecords in [place] his LVEF was reduced at EF ~40-45% and was termed idiopathic at that time. There was mention of coronary artery disease at that time but no mention of any ischemic workup. Given that the pt has had 2 sternotomies for valve replacement it was presumed he had a coronary angiogram atsome point however we where unable to obtain records from [place] where the most recent valve surgeries occurred. The patient reported no prior history of stents, coronary artery disease or bypass surgery. Mr. Khan was diuresed with IV lasix and then transitioned to PO torsemide at 40mg a day. He will require further titration of diuretics as an outpatient. He became volume depleted with pre-renal AKIwhile being diuresed with Torsemide 80mg PO daily but had limited PO intake while inpatient here. Hewas also started on Lisinopril and Metoprolol but transitioned to Losartan on discharge due to a persistent dry cough on Lisinoprol (the pt reports the cough predates the initation of ACEi, however we wanted to eliminate confounding variables). Metoprolol was chosen as the BB given his slightly difficult to rate control atrial flutter. Spironolactone was started but in the setting of his over-diuresis and THA pt became hyperkalemic and this was discontinued with plan for BMP and possible re-initiation of spironolactone as an outpatient. Medication regimen on discharge was: Losartan 50mg daily, Metoprolol Succinate 100mg daily, Torsemide 50mg daily, Aspirin 81mg daily, and Atorvastatin 80mg. Other workup/intervention which was not pursued at this hospital stay but can be considered in follow up included: - ischemia evaluation with Cath vs Stress Test - Cardioversion for A-V synchrony (likely requiring antiarrythmic therapy) - placement of CRRT +/- D if if EF does not improve - further evaluation of the aortic bioprosthesis We delayed these interventions because the patient had not been using any medical therapy for reduced LVEF so we opted to re-institute neurohormonal blockade medications, warfarin for secondary prevention of cardioembolic stroke and allow him to recover from the acute stroke that he initially presented to [facility] with. #Valvular disease Mr. Khan has a complicated hx of valvular heart disease and repair, per report it appears his history to date is: - mitral valve prolapse, repair ([place]) 11/07/09: P2 resection, sliding annuloplasty, placement of #38 Future band. - [facility] 12/01/10 : mitral valve replacement with a #33 EPIC IC procedure, tricuspid valve repair with a #32 MC3 ring, MAZE - AVR 2013. ([facility]): no records available. On TTE here there was a concern for Aortic stenosis with a calculated valve area of < 1cm but a mean gradient of only 23 mmHg. This was very similar to the gradient of 22 from echo done in [place] in 2014. On echo it appears that his valve was opening well and given this further workup of his aortic valve was not pursued at this time. He also had moderate AR and MR on echo here as well. Despite numerous atttempts the surgical report for the make and size of the aortic prosthesis could not be obtained from [facility] in [place], [place]. It appeared that his transaortic gradient had not changed significantly from prior baseline echo. A JOJO can be considered if there is concern for bioprosthetic aortic valve stenosis in follow up. #Atrial Flutter/Fibrillation Adequate ventricular rate controlled with metoprolol succinate 100mg and anticoagulated with warfarin, mean ventricular rates in atrial flutter were 60- 90bpm . Given his valvular heart disease he is not a candidate for DOAC at this time. There was a consideration for DCCV however this was deferred given his recent CVA and the unknown duration of atrial flutter. #Ischemic Stroke - likely Cardioembolic in nature Pt presented with symptoms of left hand weakness and had a CT head showing right frontal lobe infarct. We allowed for permissive HTN for 48 hrs and started anticoagulation with heparin gtt before bridging to coumadin with lovenox. He was seen by neurology during his stay who did not have any additional recommendations. The etiology of his stroke was likely cardio-embolic in nature as he was not on anticoagulants prior to this hospital stay. # Non-oliguric THA Mr. Khan developed THA and associated hyperkalemia in the setting of over diuresis and addition ofACEi and Spironolactone. Diuretics, ACEi, and Spironolactone were held. Pt was instructed to start Torsemide and Losartan (switched as above) the day after discharge and the Spironolactone was held on d ischarge pending BMP as an outpatient. Creatinine was improving and approaching baseline on discharge. Important Studies and Lab Data: Labs: Recent Results (from the past 72 hour(s)) Basic Metabolic Panel (non-fasting) Result Value Ref Range Glucose Lvl 106 65 - 199 mg/dL BUN 37 (H) 10 - 20 mg/dL Creatinine 1.57 (H) 0.80 - 1.50 mg/dL Sodium 135 135 - 145 mmol/L Potassium 4.6 3.5 - 5.0 mmol/L Chloride 93 (L) 98 - 107 mmol/L CO2 30 22 - 31 mmol/L Anion Gap 12 5 - 15 mmol/L Calcium 9.4 8.5 - 10.5 mg/dL Estimated GFR 45 (L) >=60 Magnesium Result Value Ref Range Magnesium 1.01 0.69 - 1.07 mmol/L Prothrombin Time Result Value Ref Range PT 22.3 (H) 12.0 - 15.0 sec INR 1.9 (H) 0.9 - 1.1 Hemogram Result Value Ref Range WBC 6.2 4.0 - 9.5 x10(3)/mcL RBC 5.25 4.58 - 5.54 x10(6)/mcL Hemoglobin 15.7 13.7 - 16.5 gm/dL Hematocrit 47.0 40.5 - 48.5 % MCV 89.5 82.9 - 93.1 fL MCH 29.9 27.5 - 32.1 pg MCHC 33.4 32.0 - 35.7 gm/dL Platelets 214 145 - 357 x10(3)/mcL RDWSD 41.5 36.0 - 45.0 fL RDWCV 12.5 11.4 - 13.8 % MPV 11.0 7.6 - 12.9 fL nRBC % Auto 0.0 % nRBC Abs Auto 0.000 0.000 - 0.000 x10(3)/mcL Differential, Automated Result Value Ref Range Neutrophils % 70.4 % Neutr Abs (ANC) 4.35 1.70 - 6.10 x10(3)/mcL Lymphocytes % 16.7 % Lymphocytes Abs 1.0 0.9 - 3.2 x10(3)/mcL Monocytes % 10.2 % Monocyte Abs 0.6 0.3 - 0.9 x10(3)/mcL Eosinophils % 1.9 % Eosinophils Abs 0.1 0.0 - 0.4 x10(3)/mcL Basophils % 0.5 % Basophils Abs 0.0 0.0 - 0.1 x10(3)/mcL Immature Gran % 0.30 % Cassie Gran Abs 0.02 0.00 - 0.04 x10(3)/mcL Basic Metabolic Panel (non-fasting) Result Value Ref Range Glucose Lvl 113 65 - 199 mg/dL BUN 45 (H) 10 - 20 mg/dL Creatinine 1.68 (H) 0.80 - 1.50 mg/dL Sodium 134 (L) 135 - 145 mmol/L Potassium 5.1 (H) 3.5 - 5.0 mmol/L Chloride 94 (L) 98 - 107 mmol/L CO2 28 22 - 31 mmol/L Anion Gap 12 5 - 15 mmol/L Calcium 9.2 8.5 - 10.5 mg/dL Estimated GFR 41 (L) >=60 Magnesium Result Value Ref Range Magnesium 1.04 0.69 - 1.07 mmol/L Prothrombin Time Result Value Ref Range PT 24.2 (H) 11.8 - 14.0 sec INR 2.2 (H) 0.9 - 1.1 Hemogram Result Value Ref Range WBC 6.2 4.0 - 9.5 x10(3)/mcL RBC 5.01 4.58 - 5.54 x10(6)/mcL Hemoglobin 15.2 13.7 - 16.5 gm/dL Hematocrit 45.1 40.5 - 48.5 % MCV 90.0 82.9 - 93.1 fL MCH 30.3 27.5 - 32.1 pg MCHC 33.7 32.0 - 35.7 gm/dL Platelets 229 145 - 357 x10(3)/mcL RDWSD 41.0 36.0 - 45.0 fL RDWCV 12.4 11.4 - 13.8 % MPV 10.8 7.6 - 12.9 fL nRBC % Auto 0.0 % nRBC Abs Auto 0.000 0.000 - 0.000 x10(3)/mcL Differential, Automated Result Value Ref Range Neutrophils % 65.7 % Neutr Abs (ANC) 4.07 1.70 - 6.10 x10(3)/mcL Lymphocytes % 19.8 % Lymphocytes Abs 1.2 0.9 - 3.2 x10(3)/mcL Monocytes % 12.1 % Monocyte Abs 0.8 0.3 - 0.9 x10(3)/mcL Eosinophils % 1.5 % Eosinophils Abs 0.1 0.0 - 0.4 x10(3)/mcL Basophils % 0.6 % Basophils Abs 0.0 0.0 - 0.1 x10(3)/mcL Immature Gran % 0.30 % Cassie Gran Abs 0.02 0.00 - 0.04 x10(3)/mcL Basic Metabolic Panel (non-fasting) Result Value Ref Range Glucose Lvl 109 65 - 199 mg/dL BUN 45 (H) 10 - 20 mg/dL Creatinine 1.43 0.80 - 1.50 mg/dL Sodium 130 (L) 135 - 145 mmol/L Potassium 5.1 (H) 3.5 - 5.0 mmol/L Chloride 92 (L) 98 - 107 mmol/L CO2 26 22 - 31 mmol/L Anion Gap 12 5 - 15 mmol/L Calcium 8.5 8.5 - 10.5 mg/dL Estimated GFR 50 (L) >=60 Basic Metabolic Panel (non-fasting) Result Value Ref Range Glucose Lvl 101 65 - 199 mg/dL BUN 40 (H) 10 - 20 mg/dL Creatinine 1.37 0.80 - 1.50 mg/dL Sodium 133 (L) 135 - 145 mmol/L Potassium 5.0 3.5 - 5.0 mmol/L Chloride 95 (L) 98 - 107 mmol/L CO2 26 22 - 31 mmol/L Anion Gap 12 5 - 15 mmol/L Calcium 8.9 8.5 - 10.5 mg/dL Estimated GFR 52 (L) >=60 Magnesium Result Value Ref Range Magnesium 1.23 (H) 0.69 - 1.07 mmol/L Prothrombin Time Result Value Ref Range PT 23.8 (H) 11.8 - 14.0 sec INR 2.1 (H) 0.9 - 1.1 Hemogram Result Value Ref Range WBC 6.0 4.0 - 9.5 x10(3)/mcL RBC 4.67 4.58 - 5.54 x10(6)/mcL Hemoglobin 14.3 13.7 - 16.5 gm/dL Hematocrit 42.6 40.5 - 48.5 % MCV 91.2 82.9 - 93.1 fL MCH 30.6 27.5 - 32.1 pg MCHC 33.6 32.0 - 35.7 gm/dL Platelets 204 145 - 357 x10(3)/mcL RDWSD 41.1 36.0 - 45.0 fL RDWCV 12.3 11.4 - 13.8 % MPV 11.1 7.6 - 12.9 fL nRBC % Auto 0.0 % nRBC Abs Auto 0.000 0.000 - 0.000 x10(3)/mcL Differential, Automated Result Value Ref Range Neutrophils % 64.9 % Neutr Abs (ANC) 3.87 1.70 - 6.10 x10(3)/mcL Lymphocytes % 17.1 % Lymphocytes Abs 1.0 0.9 - 3.2 x10(3)/mcL Monocytes % 13.9 % Monocyte Abs 0.8 0.3 - 0.9 x10(3)/mcL Eosinophils % 2.8 % Eosinophils Abs 0.2 0.0 - 0.4 x10(3)/mcL Basophils % 1.0 % Basophils Abs 0.1 0.0 - 0.1 x10(3)/mcL Immature Gran % 0.30 % Cassie Gran Abs 0.02 0.00 - 0.04 x10(3)/mcL Studies: Echocardiogram (08/31): 1. The left ventricle is severely dilated. Severe concentric left ventricular hypertrophy is observed. Global left ventricular systolic function is moderately reduced. The left ventricular ejection is 31%. There are left ventricular segmental wall motion abnormalities present. The basal anteroseptal, and ??mid anteroseptal wall segments are dyskinetic (score 4). The ??basal inferior, basal inferoseptal, mid inferior, mid inferoseptal, apical septal, and ??apical inferior wall segments are akinetic (score 3). The ??mid anterior, mid anterolateral, mid inferolateral, apical anterior, and ??apical lateral wall segments are hypokinetic (score 2). 2. The left atrium is severely dilated. 3. The right ventricle is normal in size. Right ventricular global systolic function is moderately reduced. The estimated pulmonary artery systolic pressure is 37 mmHg. 4. 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 The mean/peak trans-valvular gradient across the aortic valve is 23/41 mmHg, DOI (VTI) 0.21, suggesting stenosis of the aortic prosthesis, calculated valve area (VTI) 0.7 cm2. Moderate (2+/4+) aortic valve prosthesis regurgitation is present. 5. A bovine bio-prosthetic mitral valve is present. The mean gradient across the mitral valve is 6 mmHg @ 95 bpm. There is a trace amount of mitral prosthesis regurgitation. 6. There is mild to moderate (1-2+/4+) tricuspid regurgitation present. ?? CT Carotids and [place] [facility] [place] 1. Normal CT of the head and neck with no critical stenosis, abrupt occlusion, or dissection. 2. Aneurysmal dilation of the ascending aorta at 4.5 cm. [place]. Baseline LVEF at that time was 40-45% 2. Mean transaortic valvular gradient at that time was 22mmHg 3. No indication of prior coronary artery intervention, bypass grafts. No notes on prior ischemic evaluation. Pending Studies and Lab Data: none Discharge Conditions/Prognosis: Stable/good Discharge to: home Discharge Medications: Your Medications New Medications Dose Details aspirin 81 mg Chew Take 81 mg by mouth daily. 81 mg Quantity: 30 tablet Refills: 3 atorvastatin 80 mg Tab Commonly known as: LIPITOR Take 1 tablet by mouth every evening. 80 mg Quantity: 90 tablet Refills: 3 losartan 100 mg Tab Commonly known as: COZAAR Take 0.5 tablets by mouth daily. 50 mg Quantity: 90 tablet Refills: 3 meTOPROLOL succinate 100 mg Tablet sr Commonly known as: TOPROL-XL Take 1 tablet by mouth daily. 100 mg Quantity: 30 tablet Refills: 12 torsemide 20 mg Tab Commonly known as: DEMADEX Take 2 tablets by mouth daily. 40 mg Quantity: 30 tablet Refills: 3 warfarin 7.5 mg Tab Commonly known as: COUMADIN Take 1 tablet by mouth daily. 7.5 mg Quantity: 30 tablet Refills: 3 Updated Allergies/ADRs: No Known Allergies Instructions Given to Patient at Discharge: Patient Instructions Patient Instructions on Discharge to Home Why you were hospitalized - Acute Ischemic Stroke, Atrial Fibrillation/Flutter, Congestive Heart Failure Call your doctor or seek medical attention if you develop the following - chest pain, shortness of breath, passing out, feeling dizzy upon standing, passing out, diarrhea, constipation lasting longer than 2 days, fevers (temperature over 100.3), chills, abdominal pain, vomiting, difficulty or discomfort when urinating, bloody or black bowel movements, or any other acute or concerning symptom. Activity level - as tolerated Diet - Please follow a low sodium diet. Driving - Please do not drive if you are feeling dizzy, have blurry vision, feel tired, or feel ill in any way. Shower/Bath - no restrictions Anticoagulation Management (Blood Thinner Medications) Upon Discharge ??? Reason for anticoagulation (blood thinner) therapy: Atrial Fibrillation/Flutter ??? Your NEW warfarin (Coumadin??) dosing upon discharge is as below. Follow these instructions until your first INR check after discharge: ??? Tonight, (Day #1): Take 7.5 mg at 5 pm ??? Tomorrow (Day#2): Take 7.5 mg at 5 pm ??? Day #3: 7.5 ??? Day #4: 7.5 ??? Follow up INR is scheduled on: ??? INR Goal: 2-3 ??? Expected duration of treatment: Indefinite ??? Provider/Team responsible for ongoing outpatient anticoagulation management: ??? Provider/Team/Clinic: [facility] ? If you have not received a call from your provider within 24 hours of having your INR drawn, please call your outpatient provider for further dose instructions. ??? Warfarin (Coumadin??) should be taken at the same time every day, preferably after 5pm. ??? If taking enoxaparin (Lovenox??) injections, continue taking them until instructed to stop doingso by your provider. Sometimes this needs to overlap for 24-48 hours while your INR is within your goal range. ?? Please review your warfarin (Coumadin??) Pack upon discharge. ?? The following table shows your most recent INR results and warfarin (Coumadin??) doses: Recent Labs 09/08/17 0357 09/07/17 0522 09/06/17 0504 INR 2.1* 2.2* 1.9* Hospital Date 09/07 09/06 09/05 09/04 Coumadin Dose (mg) 7.5mg 7.5mg 10mg 7.5mg Other Important Instructions - Please take the warfarin as instructed above (7.5mg every evening until your first INR check at the [facility] on 09/13) - Start taking the Torsemide and Losartan tomorrow (09/09) - A referral was placed to Occupation Therapy as an outpatient Follow-up Appointments - Primary Care: Provider BLESSING, Tuesday09/13/17 at 8:45am at [facility] ( ) - Cardiology: Dr. Jerez, September 29 at 3:15pm, [place] Your Discharge Medication List Your Medications New Medications Dose Details aspirin 81 mg Chew Take 81 mg by mouth daily. 81 mg Quantity: 30 tablet Refills: 3 atorvastatin 80 mg Tab Commonly known as: LIPITOR Take 1 tablet by mouth every evening. 80 mg Quantity: 90 tablet Refills: 3 losartan 100 mg Tab Commonly known as: COZAAR Take 0.5 tablets by mouth daily. 50 mg Quantity: 90 tablet Refills: 3 meTOPROLOL succinate 100 mg Tablet sr Commonly known as: TOPROL-XL Take 1 tablet by mouth daily. 100 mg Quantity: 30 tablet Refills: 12 torsemide 20 mg Tab Commonly known as: DEMADEX Take 2 tablets by mouth daily. 40 mg Quantity: 30 tablet Refills: 3 warfarin 7.5 mg Tab Commonly known as: COUMADIN Take 1 tablet by mouth daily. 7.5 mg Quantity: 30 tablet Refills: 3 Your Inpatient Medical Team at [facility] Name(s) of your inpatient provider(s): MD Dr. Nanette Caceres MD Dr. Zack Giesen, MD For questions regarding issues relating to your hospitalization on the Hospital Medicine Service, please contact your inpatient physician through the [facility] Supervisor Cd Area [phone]. Issues after hours and on weekends will be handled by the Hospitalist staff on-call. Your Primary Care Provider - [facility] - [phone] Yogesh Regan DO PGY-1 09/08/2017 General Instructions None Future Appointments and Orders Future Orders Complete By Expires Referral to Occupational Therapy [REF53 Custom] As directed Process Instructions: Note: Please indicate in the comments any additional Instructions or Precautions. For Splinting, please indicate the Joints to be incorporated, Position of Joint, and Function of the Splint. Scheduling Instructions: Comments: Left hand weakness post CVA Questions: Reason for OT?: Eval Type: Hand/Upper Extremity Rehab Hand/UE Treatment Focus: Hand/UE Modalities could include: Hand Protocols: Eval Type: Neurological Rehab Neuro Rehab Focus: Eval Type: Work Reintegration Focus: Discharge References/Attachments: Discharge References/Attachments None Inpatient Provider Contact Information: MD Dr. Nanette Caceres MD Dr. Zack Giesen, DO Electronically Signed By: Yogesh Regan DO 09/08/2017 documented in this encounter Discharge Instructions Patient InstructionsYogesh Regan DO - 09/07/2017 2:55 PM EDT Patient Instructions on Discharge to Home Why you were hospitalized - Acute Ischemic Stroke, Atrial Fibrillation/Flutter, Congestive Heart Failure Call your doctor or seek medical attention if you develop the following - chest pain, shortness of breath, passing out, feeling dizzy upon standing, passing out, diarrhea, constipation lasting longer than 2 days, fevers (temperature over 100.3), chills, abdominal pain, vomiting, difficulty or discomfort when urinating, bloody or black bowel movements, or any other acute or concerning symptom. Activity level - as tolerated Diet - Please follow a low sodium diet. Driving - Please do not drive if you are feeling dizzy, have blurry vision, feel tired, or feel ill in any way. Shower/Bath - no restrictions Anticoagulation Management (Blood Thinner Medications) Upon Discharge ??? Reason for anticoagulation (blood thinner) therapy: Atrial Fibrillation/Flutter ??? Your NEW warfarin (Coumadin??) dosing upon discharge is as below. Follow these instructions until your first INR check after discharge: ??? Tonight, (Day #1): Take 7.5 mg at 5 pm ??? Tomorrow (Day#2): Take 7.5 mg at 5 pm ??? Day #3: 7.5 ??? Day #4: 7.5 ??? Follow up INR is scheduled on: ??? INR Goal: 2-3 ??? Expected duration of treatment: Indefinite ??? Provider/Team responsible for ongoing outpatient anticoagulation management: ??? Provider/Team/Clinic: [facility] ? If you have not received a call from your provider within 24 hours of having your INR drawn, please call your outpatient provider for further dose instructions. ??? Warfarin (Coumadin??) should be taken at the same time every day, preferably after 5pm. ??? If taking enoxaparin (Lovenox??) injections, continue taking them until instructed to stop doingso by your provider. Sometimes this needs to overlap for 24-48 hours while your INR is within your goal range. ?? Please review your warfarin (Coumadin??) Pack upon discharge. ?? The following table shows your most recent INR results and warfarin (Coumadin??) doses: Recent Labs 09/08/17 0357 09/07/17 0522 09/06/17 0504 INR 2.1* 2.2* 1.9* Hospital Date 09/07 09/06 09/05 09/04 Coumadin Dose (mg) 7.5mg 7.5mg 10mg 7.5mg Other Important Instructions - Please take the warfarin as instructed above (7.5mg every evening until your first INR check at the [facility] on 09/13) - Start taking the Torsemide and Losartan tomorrow (09/09) - A referral was placed to Occupation Therapy as an outpatient Follow-up Appointments - Primary Care: Provider BLESSING, Tuesday09/13/17 at 8:45am at [facility] ( ) - Cardiology: Dr. Jerez, September 29 at 3:15pm, [place] Your Discharge Medication List Your Medications New Medications Dose Details aspirin 81 mg Chew Take 81 mg by mouth daily. 81 mg Quantity: 30 tablet Refills: 3 atorvastatin 80 mg Tab Commonly known as: LIPITOR Take 1 tablet by mouth every evening. 80 mg Quantity: 90 tablet Refills: 3 losartan 100 mg Tab Commonly known as: COZAAR Take 0.5 tablets by mouth daily. 50 mg Quantity: 90 tablet Refills: 3 meTOPROLOL succinate 100 mg Tablet sr Commonly known as: TOPROL-XL Take 1 tablet by mouth daily. 100 mg Quantity: 30 tablet Refills: 12 torsemide 20 mg Tab Commonly known as: DEMADEX Take 2 tablets by mouth daily. 40 mg Quantity: 30 tablet Refills: 3 warfarin 7.5 mg Tab Commonly known as: COUMADIN Take 1 tablet by mouth daily. 7.5 mg Quantity: 30 tablet Refills: 3 Your Inpatient Medical Team at [facility] Name(s) of your inpatient provider(s): MD Dr. Nanette Caceres MD Dr. Zack Giesen, MD For questions regarding issues relating to your hospitalization on the Hospital Medicine Service, please contact your inpatient physician through the [facility] Supervisor Cd Area [phone]. Issues after hours and on weekends will be handled by the Hospitalist staff on-call. Your Primary Care Provider - [facility] - [phone] Yogesh Regan DO PGY-1 09/08/2017 documented in this encounter Medications at Time [...] mouth daily. documented as of this encounter Progress Notes Natty Cole RN - 09/08/2017 2:21 PM EDT Patient discharged to home. AVS reviewed with patient, questions answered. Patient voiced understanding of medications and discharge instructions. IVs removed and tele disconnected. 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 He is a Mosque, open to perfect binder operator visit and support. Assessment: He is doing better and hoping he may be discharged by tomorrow. Intervention and Outcome: Provided pastoral/supportive/counseling presence and prayers for God's continued healing. Follow-up: Yes Time in Direct Care: 30 mins Jey Laguna 09/07/2017 Natty Cole RN - 09/07/2017 4:34 PM EDT OUTCOME EVALUATION NOTE: OUTCOME SUMMARY: A&O. VSS on RA. Aflutter on tele with frequent PVCs and QRS changes (?BBB). HR 65-100. Denies pain or discomfort. Patient showered. Patient received 500cc NS bolus this morning with BMP recheck this afternoon. Will continue to monitor. PLAN MOVING FORWARD: AM labs, D/c tomorrow 09/08 INDIVIDUALIZED FALL PREVENTION INTERVENTIONS: Patient-specific fall risk factors per assessment: [current deficits]: Hospitalization, lines Assistance [level of assistance required for transfers and ambulation]: IND Supervision [direct monitoring required during toileting and ADLs]: Intermittent, rings appropriately Surveillance [continuous indirect monitoring]: Tele, hourly rounding, call wayne in reach Jae Feldman MD - 09/07/2017 11:24 AM EDT INPATIENT CARDIOLOGY PROGRESS NOTE (Team S1, pager [phone]) ?? Mr. Cong Khan is a 62 y/o man with a PMHx of systolic heart failure (EF 31%), atrial fibrillation (not on anticoagulation), mitral valve disease (s/p bioprosthetic valve replacement), and aortic valve disease (s/p bioprosthetic valve replacement) who was admitted for an acute systolic heart failure exacerbation, atrial flutter and ischemic stroke (likely cardioembolic). 24-hour Events/Subjective: - no acute events, VSS - held diuretics yesterday - no chest pain, palpitations, SOB, less orthopnea today Scheduled Meds: ??? warfarin 7.5 mg Oral Once ??? meTOPROLOL succinate 100 mg Oral Daily ??? hydrocortisone Topical (Top) BID ??? melatonin 6 mg Oral Nightly ??? aspirin 81 mg Oral Daily ??? warfarin (COUMADIN) daily order reminder Oral Q24H ??? sodium chloride 0.9 % 5 mL Intravenous Q12H ??? benzonatate 100 mg Oral TID ??? atorvastatin 80 mg Oral QPM Continuous Infusions: PRN Meds:.guaiFENesin, meTOPROLOL, sodium chloride 0.9 %, lidocaine, acetaminophen ?? Physical Exam Temp: [36.4 ??C (97.5 ??F)-36.8 ??C (98.2 ??F)] Heart Rate: [63-105] Resp: [16-20] BP: (99-118)/(61-75) SpO2: [97 %-99 %] Heart Rate from SPO2: [65 bpm-88 bpm] GEN: well developed, well noursihed, NAD Lungs: CTAB Heart: RRR, normal S1 and S2, harsh systolic murmur unchanged Abdomen: soft, NTTP Extremities: no peripheral edema ?? Fluid Balance: Intake/Output Summary (Last 24 hours) at 09/07/17 0712 Last data filed at 09/07/17 0303 Gross per 24 hour Intake 1070 ml Output 2275 ml Net -1205 ml Last Weight: Patient Vitals for the past 168 hrs: Weight 09/07/17 0517 71.3 kg (157 lb 3 oz) 09/06/17 0638 70.8 kg (156 lb 1.4 oz) 09/05/17 0611 71.6 kg (157 lb 13.6 oz) 09/04/17 0508 73 kg (160 lb 15 oz) 09/03/17 0600 73 kg (160 lb 15 oz) 09/01/17 0500 74.4 kg (164 lb 0.4 oz) Laboratory Studies: - cbc wnl - mild hyponatremia and hyperkalemia - worsening THA - Mg 1.04 - INR 2.2 Radiographic data: - no new data Cardiology/Vascular studies: Echocardiogram (08/31): 1. The left ventricle is severely dilated. Severe concentric left ventricular hypertrophy is observed. Global left ventricular systolic function is moderately reduced. The left ventricular ejection is 31%. There are left ventricular segmental wall motion abnormalities present. The basal anteroseptal, and mid anteroseptal wall segments are dyskinetic (score 4). The basal inferior, basal inferoseptal, mid inferior, mid inferoseptal, apical septal, and apical inferior wall segments are akinetic (score 3). The mid anterior, mid anterolateral, mid inferolateral, apical anterior, and apical lateral wall segments are hypokinetic (score 2). 2. The left atrium is severely dilated. 3. The right ventricle is normal in size. Right ventricular global systolic function is moderately reduced. The estimated pulmonary artery systolic pressure is 37 mmHg. 4. 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 The mean/peak trans-valvular gradient across the aortic valve is 23/41 mmHg, DOI (VTI) 0.21, suggesting stenosis of the aortic prosthesis, calculated valve area (VTI) 0.7 cm2. Moderate (2+/4+) aortic valve prosthesis regurgitation is present. 5. A bovine bio-prosthetic mitral valve is present. The mean gradient across the mitral valve is 6 mmHg @ 95 bpm. There is a trace amount of mitral prosthesis regurgitation. 6. There is mild to moderate (1-2+/4+) tricuspid regurgitation present. Prior studies from Cardiology [place], [place]: 1. Baseline LVEF at that time was 40-45% 2. Mean transaortic valvular gradient at that time was 22mmHg 3. No indication of prior coronary artery intervention, bypass grafts. No notes on prior ischemic evaluation. ?? Assessment & Plan Mr. Cong Khan is a 62 y/o man with a PMHx of systolic heart failure (EF 31%), atrial fibrillation (not on anticoagulation), mitral valve disease (s/p bioprosthetic valve replacement), and aortic valve disease (s/p bioprosthetic valve replacement) who was admitted for an acute systolic heart failure exacerbation, atrial flutter and cardioembolic stroke. Patient was switched to oral regimen on diuretics and overdiuresed; causing an acute kidney injury. He is especially sensitive to oral torsemide than previously given. He may have had gut edema that has reduced and the absorption of oral meds is now increased. Appears euvolemic on exam and his dry weight is likely around 72-72kg. # Non-oliguric THA - holding diuretics for today as well as lisinopril and spironolactone - NS bolus 500cc and encourage oral intake - repeat BMP this afternoon # HFrEF # Aortic stenosis # Hypertension - start torsemide 40mg PO qd regimen tomorrow - restart spironolactone 25 mg QD and Lisinopril 20 mg QD once THA resolved or as an outpatient. - Metoprolol succinate 100mg qd - will continue with medical management without PCI ?? # Cardioembolic stroke - aspirin 81 mg QD - atorvastatin 80 mg QHS - nursing neuro evaluation daily ? # Atrial flutter with RVR - Rate control with metoprolol succinate - IV metoprolol 5 mg prn for HR >110 - continue warfarin, increase dose to 10mg and continue bridge with lovenox, will reduce dose back to 7.5mg today - goal INR 2-3 (last INR 2.2) # Non-productive cough - maintain lisinopril (per patient, not related) - guaifenesin oral liquid q4 PRN for cough # Face rash -Hydrocortisone 1% cream BID ?? # Sleeping difficulties - Melatonin 6 mg QHS ? GI PPx: not indicated DVT PPx: therapeutic warfarin Diet: cardiac diet Code Status: DNR Disposition: likely d/c in 1-2 days Luis Gupta ([id number]) Internal Medicine, PGY1 09/07/17 11:24 AM Attending Attestation Please see Candy's note for details of the patient history of presentation and data. I have discussed, reviewed and agree with the documented history, physical findings, assessment and plan of care. Active Hospital Problems Diagnosis ??? Acute systolic congestive heart failure Prior echo from [facility] 10/2015: EF 40-45%, mean aortic valve gradient 22mmHg [place] echo Aug 2017: EF 20-25%, DVI 0.35, ascending aorta 4.2cm, aortic arch 5.3cm Current echo [facility] 08/31/17:EF 31%, septum paradoxical motion [...] Valvular disease - mitral valve prolapse, repair ([place], [place]) 11/07/09: P2 resection, sliding annuloplasty, placement of #38 Future band. - [facility] 12/01/10 : mitral valve replacement with a #33 EPIC IC procedure, tricuspid valve repair with a #32 MC3 ring, MAZE - AVR 2013. ([facility]): no records available. ??? Aneurysm of aortic arch Noted on echo at [facility] 5.3cm (08/30/2017) Resolved Hospital Problems Diagnosis Date Resolved No resolved problems to display. ?? He has diuresed to euvolemia and continues to diurese aggressively with oral torsemide dosing. IN fact he has mild pre-renal azotemia and contraction alkalosis so we are holding diuretics for the time being and will plan for discharge tomorrow AM with a plan to resume diuretics tomorrow at a lower dose and follow up for labs with PCP next week. His GARCIA and orthopnea are largely resolved. We are titrating neurohormonal meds as tolerated and using beta blockers for rate control of afib as well. ?? Records from his medical dir in [place] from 10/2015 echo and office visit indicate ?? 1. Baseline LVEF at that time was 40-45% 2. Mean transaortic valvular gradient at that time was 22mmHg 3. No indication of prior coronary artery intervention, bypass grafts. No notes on prior ischemic evaluation. ? The etiology of his heart failure is most likely valvular (he has both LV chamber dilation and increased wall thickness), perhaps tachymyopathy is playing a role as well given that he was not taking meds for afib rate control on presentation. We have delayed on ischemia evaluation as he has very likely has prior cath's and we await those results, further he has no anginal symptoms and we have at least 2 more likely causes of his presentation. He just started warfarin for prevention of further cardioembolic strokes and he is in the early recovery stages from the stroke so the upside of a cath at this time was outweighed by all of these other factors. WE will try to get prior coronary evaluations (records requested from both [facility] in [place] and [facility] in [place]). A follow up chest CT to look at his aortic arch size is warranted in follow up. Mild creatinine bumpso will hold off on dye exposure for now. Follow up considerations if heart failure does not improve are a. Cardioversion, b. Biventricular pacing c. Further evaluation of the aortic prosthesis (first step is to figure out make and model) willask for records from [facility] in [facility] again tomorrow. ?? Jae Feldman MD Staff Profile Stitching Machine Operator Ana Cory - 09/06/2017 3:07 PM EDT Crystal Attacher Encounter Note Patient Name: Cong Khan : [id number] MR#: [id number] Admit Date: 08/30/2017 8:34 PM Hospital Day 7 days Narrative: Responded to request for visit by a Mosque perfect binder operator, Mr. Khan seated on the edge of his bed, welcoming a visit. Assessment: A patient who finds strength in his spiritual practice and credits that discipline with his ability to deal with alcoholism and his current health challenges. Intervention and Outcome: Presence and reflection. Follow-up: Yes. Time in Direct Care: 30 mins. Ana Munoz 09/06/2017 Lisa Duvall DT - 09/06/2017 2:20 PM EDT Nutrition Services - Follow-up Note Cong Khan : 1955 AGE: 62 y.o. Patient Active Problem List Diagnosis Date Noted ??? Hospital-Valvular disease 09/03/2017 ??? Hospital-Aneurysm of aortic arch 09/03/2017 ??? Hospital-Acute systolic congestive heart failure 08/30/2017 ??? Hospital-Atrial fibrillation 08/30/2017 ??? Hypertension 08/30/2017 ??? H/O mitral valve replacement with tissue graft 08/30/2017 ??? H/O aortic valve replacement with porcine valve 08/30/2017 ??? Hospital-Stroke 08/30/2017 Reason for Nutrition Intervention: Follow-up Diet Order: Cardiac Appetite: Good Food allergies: NKFA Ht Readings from Last 3 Encounters: 08/30/17 175.3 cm (5' 9) Wt Readings from Last 3 Encounters: 09/06/17 70.8 kg (156 lb 1.4 oz) Body mass index is 23.05 kg/(m^2). Assessment: Patient seen for nutrition follow up. Pt reported a good appetite at this time. He verbalized good understanding of current dietary restrictions. 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 He is making out meal choices daily. Nutrition Plan: Continue current diet. Recommend Daily Multi Vitamins. Encourage good po intake. Monitor weight. Support and encouragement provided. Nutrition services to follow weekly thru hospital course unless consulted in the interim. BILL Bell Lali Regalado, RN - 09/06/2017 12:50 PM EDT Patient discussed in multidisciplinary rounds. Patient here for acute systolic heart failure exacerbation Will continue to follow for discharge planning needs. Lali Regalado [id number] Jae Feldman MD - 09/06/2017 11:53 AM EDT INPATIENT CARDIOLOGY PROGRESS NOTE (Team S1, pager [phone]) ?? Mr. Cong Khan is a 62 y/o man with a PMHx of systolic heart failure (EF 31%), atrial fibrillation (not on anticoagulation), mitral valve disease (s/p bioprosthetic valve replacement), and aortic valve disease (s/p bioprosthetic valve replacement) who was admitted for an acute systolic heart failure exacerbation, atrial flutter and ischemic stroke (likely cardioembolic). 24-hour Events/Subjective: - no acute events, VSS - still has orthopnea this morning, but SOB on exertion, patient still has a chronic, non-productivecough, also has leg cramping this morning - net negative 2.4L - tele showed a fibb, rate controlled - From [employer] in [place]: no interventions via PCI and last echo showed EF 40-45% - improving function of left hand with PT Scheduled Meds: ??? torsemide 80 mg Oral BID ??? meTOPROLOL 25 mg Oral Q6H BERTHA ??? enoxaparin 70 mg Subcutaneous 2 times per day ??? spironolactone 25 mg Oral Daily ??? hydrocortisone Topical (Top) BID ??? lisinopril 20 mg Oral Daily ??? melatonin 6 mg Oral Nightly ??? aspirin 81 mg Oral Daily ??? warfarin (COUMADIN) daily order reminder Oral Q24H ??? sodium chloride 0.9 % 5 mL Intravenous Q12H ??? benzonatate 100 mg Oral TID ??? atorvastatin 80 mg Oral QPM Continuous Infusions: PRN Meds:.flu vacc (6 mos-64 yrs)(PF), meTOPROLOL, sodium chloride 0.9 %, lidocaine, acetaminophen ?? Physical Exam Temp: [36.4 ??C (97.5 ??F)-37 ??C (98.6 ??F)] Heart Rate: [66-128] Resp: [16] BP: (110-142)/(75-119) SpO2: [92 %-99 %] Heart Rate from SPO2: [54 bpm-88 bpm] GEN: well developed, well noursihed, NAD Lungs: CTAB Heart: RRR, normal S1 and S2, harsh systolic murmur appreciated Abdomen: soft, NTTP Extremities: no peripheral edema ?? Fluid Balance: Intake/Output Summary (Last 24 hours) at 09/06/17 1141 Last data filed at 09/06/17 1000 Gross per 24 hour Intake 1300 ml Output 3650 ml Net -2350 ml Last Weight: Patient Vitals for the past 168 hrs: Weight 09/05/17 0611 71.6 kg (157 lb 13.6 oz) 09/04/17 0508 73 kg (160 lb 15 oz) 09/03/17 0600 73 kg (160 lb 15 oz) 09/01/17 0500 74.4 kg (164 lb 0.4 oz) 08/31/17 0648 73.8 kg (162 lb 11.2 oz) 08/30/17 2046 73.9 kg (162 lb 14.7 oz) Laboratory Studies: - cbc wnl - INR 1.9 - K 4.6 - Mg 1.01 - elevated creatinine, BUN above baseline Radiographic data: - no new data Cardiology/Vascular studies: Echocardiogram (08/31): 1. The left ventricle is severely dilated. Severe concentric left ventricular hypertrophy is observed. Global left ventricular systolic function is moderately reduced. The left ventricular ejection is 31%. There are left ventricular segmental wall motion abnormalities present. The basal anteroseptal, and mid anteroseptal wall segments are dyskinetic (score 4). The basal inferior, basal inferoseptal, mid inferior, mid inferoseptal, apical septal, and apical inferior wall segments are akinetic (score 3). The mid anterior, mid anterolateral, mid inferolateral, apical anterior, and apical lateral wall segments are hypokinetic (score 2). 2. The left atrium is severely dilated. 3. The right ventricle is normal in size. Right ventricular global systolic function is moderately reduced. The estimated pulmonary artery systolic pressure is 37 mmHg. 4. 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 The mean/peak trans-valvular gradient across the aortic valve is 23/41 mmHg, DOI (VTI) 0.21, suggesting stenosis of the aortic prosthesis, calculated valve area (VTI) 0.7 cm2. Moderate (2+/4+) aortic valve prosthesis regurgitation is present. 5. A bovine bio-prosthetic mitral valve is present. The mean gradient across the mitral valve is 6 mmHg @ 95 bpm. There is a trace amount of mitral prosthesis regurgitation. 6. There is mild to moderate (1-2+/4+) tricuspid regurgitation present. ?? Assessment & Plan Mr. Cong Khan is a 62 y/o man with a PMHx of systolic heart failure (EF 31%), atrial fibrillation (not on anticoagulation), mitral valve disease (s/p bioprosthetic valve replacement), and aortic valve disease (s/p bioprosthetic valve replacement) who was admitted for an acute systolic heart failure exacerbation, atrial flutter and cardioembolic stroke. Patient was switched to oral regimen on diuretics and overdiuresed; he diuresed above our goal and developed an THA and contraction alkalosis. Otherwise stable and leg cramps may be due to volume/lytesloss from diuretics. Patient received dose of torsemide this morning and will hold diuretics for therest of the day. Patient appear euvolumic but endorses orthopnea without SOB on exertion. He also has a cough that is non-productive with a questionable relation to starting medications. Patient is adequately rate controlled with metoprolol tartrate and will need to switch to succinate prior to discharge. # HFrEF # Aortic stenosis # Hypertension - diuretic holiday today - Spironolactone 25 mg QD - Metoprolol tartrate 25 mg q6hrs - switch to metoprolol succinate on d/c - Lisinopril 20 mg QD - will continue with medical management without PCI ?? # Cardioembolic stroke - aspirin 81 mg QD - atorvastatin 80 mg QHS - nursing neuro evaluation daily ? # Atrial flutter with RVR # Supratherapeutic INR - Rate control with metoprolol tartrate 25 mg Q6hrs as above - IV metoprolol 5 mg prn for HR >110 - continue warfarin, increase dose to 10mg and continue bridge with lovenox, will reduce dose back to 7.5mg today - goal INR 2-3 # Non-oliguric THA - UOP 0.6cc/kg/hr - holding diuretics as above # Non-productive cough - maintain lisinopril (per patient, not related) - guaifenesin oral liquid q4 PRN for cough # Face rash -Hydrocortisone 1% cream BID ?? # Sleeping difficulties - Melatonin 6 mg QHS ? GI PPx: not indicated DVT PPx: bridging to coumadin with enoxaparin Diet: cardiac diet Code Status: DNR Disposition: likely d/c in 1-2 days Luis Gupta ([id number]) Internal Medicine, PGY1 09/06/17 11:51 AM Attending Attestation Please see James's note for details of the patient history of presentation and data. I have discussed, reviewed and agree with the documented history, physical findings, assessment and plan of care. Active Hospital Problems Diagnosis ??? Acute systolic congestive heart failure Prior echo from [facility] 10/2015: EF 40-45%, mean aortic valve gradient 22mmHg [place] Aug 2017: EF 20-25%, DVI 0.35, ascending aorta 4.2cm, aortic arch 5.3cm Current echo [facility] 08/31/17:EF 31%, septum paradoxical motion [...] Valvular disease - mitral valve prolapse, repair in 2009 - repeat surgery in 2010, ? Mitral bioprosthesis placed at that time and MAZE - AVR 2013. ([facility]) ??? Aneurysm of aortic arch Noted on echo at [facility] 5.3cm (08/30/2017) Resolved Hospital Problems Diagnosis Date Resolved No resolved problems to display. He has diuresed to euvolemia and continues to diurese aggressively with oral torsemide dosing. IN fact he has mild pre-renal azotemia and contraction alkalosis this AM so we will back off on the diuretics as we have now reached an endpoint. His GARCIA and orthopnea are largely resolved. We are titrating n eurohormonal meds as tolerated and using beta blockers for rate control of afib as well. Records from his medical dir in [place] from 10/2015 echo and office visit indicate 1. Baseline LVEF at that time was 40-45% 2. Mean transaortic valvular gradient at that time was 22mmHg 3. No indication of prior coronary artery intervention, bypass grafts. No notes on prior ischemic evaluation. The etiology of his heart failure is most likely valvular (he has both LV chamber dilation and increased wall thickness), perhaps tachymyopathy is playing a role as well given that he was not taking meds for afib rate control on presentation. We have delayed on ischemia evaluation as he has very likely has prior cath's and we await those results, further he has no anginal symptoms and we have at least 2 more likely causes of his presentation. He just started warfarin for prevention of further cardioembolic strokes and he is in the early recovery stages from the stroke so the upside of a cath at this time was outweighed by all of these other factors. WE will try to get prior coronary evaluations (records requested from both [facility] in [place] and [facility] in [place]). A follow up chest CT to look at his aortic arch size is warranted in follow up. Mild creatinine bumpso will hold off on dye exposure for now. Jae Feldman MD Staff Profile Stitching Machine Operator Jey Laguna - 09/05/2017 4:29 PM EDT Crystal Attacher Encounter Note Patient Name: Cong Khan : [id number] MR#: [id number] Admit Date: 08/30/2017 8:34 PM Hospital Day 6 days Narrative: Mr. Khan is one of the oxygen therapist initiated visits. He was raised Protestant, a practicing Mosque yet open to perfect binder operator visit and support. Assessment: He is doing better yet struggling with past mistakes that led to his ailments and hoping the future will be brighter. Intervention and Outcome: provided pastoral/supportive/counseling presence and prayers for God's healing and strength. Follow-up: Yes Time in Direct Care: 30 mins Jey Laguna 09/05/2017 Jae Feldman MD - 09/05/2017 12:33 PM EDT INPATIENT CARDIOLOGY PROGRESS NOTE (Team S1, pager [phone]) ?? Mr. Cong Khan is a 62 y/o man with a PMHx of systolic heart failure (EF 31%), atrial fibrillation (not on anticoagulation), mitral valve disease (s/p bioprosthetic valve replacement), and aortic valve disease (s/p bioprosthetic valve replacement) who was admitted for an acute systolic heart failure exacerbation, atrial flutter and ischemic stroke (likely cardioembolic). 24-hour Events/Subjective: - no acute events, VSS - no chest pain but has orthopnea, mild chronic cough Scheduled Meds: ??? warfarin 10 mg Oral Once ??? torsemide 80 mg Oral Once ??? meTOPROLOL 25 mg Oral Q6H BERTHA ??? enoxaparin 70 mg Subcutaneous 2 times per day ??? spironolactone 25 mg Oral Daily ??? hydrocortisone Topical (Top) BID ??? lisinopril 20 mg Oral Daily ??? melatonin 6 mg Oral Nightly ??? aspirin 81 mg Oral Daily ??? warfarin (COUMADIN) daily order reminder Oral Q24H ??? sodium chloride 0.9 % 5 mL Intravenous Q12H ??? benzonatate 100 mg Oral TID ??? atorvastatin 80 mg Oral QPM Continuous Infusions: PRN Meds:.flu vacc (6 mos-64 yrs)(PF), meTOPROLOL, sodium chloride 0.9 %, lidocaine, acetaminophen ?? Physical Exam Temp: [36.7 ??C (98.1 ??F)-36.9 ??C (98.4 ??F)] Heart Rate: [63-96] Resp: [16] BP: (108-141)/(64-109) SpO2: [95 %-100 %] Heart Rate from SPO2: [32 bpm-85 bpm] GEN: well developed, well noursihed, NAD Lungs: CTAB Heart: RRR, normal S1 and S2, diastolic murmur appreciated Abdomen: soft, NTTP Extremities: no peripheral edema ?? Fluid Balance: Intake/Output Summary (Last 24 hours) at 09/05/17 1233 Last data filed at 09/05/17 1200 Gross per 24 hour Intake 1280 ml Output 3025 ml Net -1745 ml Last Weight: Patient Vitals for the past 168 hrs: Weight 09/05/17 0611 71.6 kg (157 lb 13.6 oz) 09/04/17 0508 73 kg (160 lb 15 oz) 09/03/17 0600 73 kg (160 lb 15 oz) 09/01/17 0500 74.4 kg (164 lb 0.4 oz) 08/31/17 0648 73.8 kg (162 lb 11.2 oz) 08/30/17 2046 73.9 kg (162 lb 14.7 oz) Laboratory Studies: - cbc wnl - azotemia - elevated Cr (>0.3 from baseline) - INR 1.5 - normal bicarb (no contraction alkalosis) - K 4.4 - Mg 0.96 ?? Radiographic data: - no new data Cardiology/Vascular studies: Echocardiogram (08/31): 1. The left ventricle is severely dilated.(by enddiastolic volume index based on biplane MOD, withinnormal limits by traditionally used LVEDd). Severe concentric left ventricular hypertrophy is observed. There is no evidence of LVOT obstruction. Global left ventricular systolic function is moderatelyreduced. The quantitative left ventricular ejection fraction by biplane Walker's method is 31%. There are left ventricular segmental wall motion abnormalities present, as shown in the diagram below. The basal anteroseptal, and mid anteroseptal wall segments are dyskinetic (score 4). The basal inferior, basal inferoseptal, mid inferior, mid inferoseptal, apical septal, and apical inferior wall segments are akinetic (score 3). The mid anterior, mid anterolateral, mid inferolateral, apical anterior, and apical lateral wall segments are hypokinetic (score 2). 2. The left atrium is severely dilated. 3. The right ventricle is normal in size. Right ventricular global systolic function is moderately reduced. The estimated pulmonary artery systolic pressure is 37 mmHg. 4. 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 The mean/peak trans-valvular gradient across the aortic valve is 23/41 mmHg, DOI (VTI) 0.21, suggesting stenosis of the aortic prosthesis, calculated valve area (VTI) 0.7 cm2. Moderate (2+/4+) aortic valve prosthesis regurgitation is present. 5. A bovine bio-prosthetic mitral valve is present. The mean gradient across the mitral valve is 6 mmHg @ 95 bpm. There is a trace amount of mitral prosthesis regurgitation. 6. There is mild to moderate (1-2+/4+) tricuspid regurgitation present. 7. No prior study is available for side by side comparison. ?? Assessment & Plan Mr. Cong Khan is a 62 y/o man with a PMHx of systolic heart failure (EF 31%), atrial fibrillation (not on anticoagulation), mitral valve disease (s/p bioprosthetic valve replacement), and aortic valve disease (s/p bioprosthetic valve replacement) who was admitted for an acute systolic heart failure exacerbation, atrial flutter and cardioembolic stroke. Will continue to diurese today as patient is endorsing symptoms of heart failure, although continuesto appear euvolemic on exam. INR is still subtherapeutic and will likely need to increase warfarin dose with continue bridge with lovenox. Patient will be ready for discharge shortly but will need to monitor INR and bridge in the setting of ischemic stroke and will monitor for hemorrhagic conversion. Neuro deficits (weakness) is improving today. ?? # Acute systolic heart failure - torsemide 80mg BID and goal I/O 500-1000cc - Spironolactone 25 mg QD - Metoprolol tartrate 25 mg QID - Lisinopril 20 mg QD ?? # Cardioembolic stroke -Aspirin 81 mg QD -Atorvastatin 80 mg QHS ? # Atrial flutter with RVR # Supratherapeutic INR - Rate control with metoprolol tartrate 25 mg Q6hrs - IV metoprolol 5 mg prn for HR >110 - continue warfarin, increase dose to 10mg and continue bridge with lovenox - goal INR 2-3 ?? # Aortic stenosis -Severe by valvular area, moderate by mean transvalvular flow -Consider repeat TTE or dobutamine stress echo when HF adequately treated ?? # Hypertension: - Lisinopril 20 mg QD ?? # Face rash -Hydrocortisone 1% cream BID ?? # Sleeping difficulties - Melatonin 6 mg QHS ? GI PPx: not indicated DVT PPx: enoxaparin 70mg BID Diet: cardiac diet Code Status: DNR Disposition: likely d/c in 1-2 days Luis Gupta ([phone]) Internal Medicine, PGY1 09/04/17 7:45 PM Attending Attestation Please see the resident's note for details of the patient history of presentation and data. I have discussed, reviewed and agree with the documented history, physical findings, assessment and plan of care. Active Hospital Problems Diagnosis ??? Valvular disease - mitral valve prolapse, repair in 2009 - repeat surgery in 2010, ? Mitral bioprosthesis placed at that time and MAZE - AVR 2013. ([facility]) ??? Aneurysm of aortic arch Noted on echo at [facility] 5.3cm (08/30/2017) ??? Acute systolic congestive heart failure Baseline not known currently Current echo :EF 31%, septum paradoxical motion (dys-synchrony present), mod to severe LVH, not dilated by linear diameter, severe LAE mod reduced RV function, mod pHTN. Mean trans aortic gradient in mid 20's, DVI 0.22, transmitral gradient 6 at 95 bpm ??? Atrial fibrillation ??? Stroke Right hemispheric, left hand/arm symptoms. Presumably cardioemoblic in patient with valvular afib who had discontinued warfarin. Resolved Hospital Problems Diagnosis Date Resolved No resolved problems to display. Improving volume status, INR still below target will continue bridging therapy. Understanding his prior LVEF, prior coronary evaluations, prior valve interventions will be important for guiding his future care. For now continue with diuresis with plan to go over to oral diuretics today. We are actively seeking medical records from his prior medical dir to clarify the above issues. Jae Feldman MD Staff Profile Stitching Machine Operator Jae Feldman MD - 09/04/2017 6:32 AM EDT Inpatient Hospital Medicine Progress Note Active Hospital Problems Diagnosis ??? Valvular disease ??? Aneurysm of aortic arch ??? Acute systolic congestive heart failure ??? Atrial fibrillation ??? Stroke Resolved Hospital Problems Diagnosis Date Resolved No resolved problems to display. Active Non-Hospital Problems Diagnosis ??? Hypertension ??? H/O mitral valve replacement with tissue graft ??? H/O aortic valve replacement with porcine valve Total duration of encounter: 5 days Patient ID: Mr. Cong Khan is a 62 y/o man with a PMHx of systolic heart failure (EF 31%), atrialfibrillation (not on anticoagulation), mitral valve disease (s/p bioprosthetic valve replacement), and aortic valve disease (s/p bioprosthetic valve replacement) who was admitted for an acute systolic heart failure exacerbation, atrial flutter and ischemic stroke. 24 H/subjective: - Lasix 80mg IV x 2, added spironolactone 25mg QD, negative 150cc - on RA throughout the day and overnight - orthopnea stable today Inpatient Medications: Scheduled Meds: ??? meTOPROLOL 25 mg Oral Q6H BERTHA ??? furosemide 80 mg Intravenous BID ??? enoxaparin 70 mg Subcutaneous 2 times per day ??? warfarin 7.5 mg Oral Once ??? spironolactone 25 mg Oral Daily ??? hydrocortisone Topical (Top) BID ??? lisinopril 20 mg Oral Daily ??? melatonin 6 mg Oral Nightly ??? aspirin 81 mg Oral Daily ??? warfarin (COUMADIN) daily order reminder Oral Q24H ??? sodium chloride 0.9 % 5 mL Intravenous Q12H ??? benzonatate 100 mg Oral TID ??? atorvastatin 80 mg Oral QPM Continuous Infusions: PRN Meds:.flu vacc (6 mos-64 yrs)(PF), meTOPROLOL, sodium chloride 0.9 %, lidocaine, acetaminophen Vitals: BPs mostly 120-150 most of yesterday, one episode into 170s Last value Range last 24 hrs Temperature Temp: 36.7 ??C (98.1 ??F) Temp: [36.7 ??C (98.1 ??F)-37.3 ??C (99.1 ??F)] Heart Rate Heart Rate: 84 Heart Rate: [63-131] Blood Pressure BP: (!) 141/98 BP: (108-143)/(64-109) Respiratory Rate Resp: 16 Resp: [16-20] SpO2 SpO2: 98 % on RA SpO2: [95 %-100 %] Ins/Outs: Intake/Output Summary (Last 24 hours) at 09/04/17 1131 Last data filed at 09/04/17 1125 Gross per 24 hour Intake 2901.1 ml Output 2725 ml Net 176.1 ml Net: negative 762 ml SA Physical Exam Gen: NAD, resting comfortably HEENT: sclera non-icteric. EOMI CV: Regular rate, irregular rhythm, S1S2, holosystolic murmur heard best at RUSB, JVP ~7-8 cm H2O with bed at 30 degrees. Pulm: good air movement, CTAB, faint bibasilar crackles, no wheezing Abd: soft, NT/ND, +BS Ext: no peripheral edema, no clubbing, no cyanosis. Skin: Erythematous rash over left perioral area. Neuro: AOx3. Hand lime burner 3/5 on left hand Labs: Recent Labs 09/04/1733109/03/1732509/02/17340 WBC 5.7 5.6 5.5 HGB 14.3 13.6* 13.7 PLATELET 198 210 209 Recent Labs 09/04/1733109/03/1732509/02/1734008/30/172217 NA 136 139 138 < > 140 K 4.3 4.0 4.3 < > 3.4* CL 94* 98 99 < > 100 CO2 27 27 26 < > Not Perf BUN 27* 22* 21* < > 23* CREATININE 1.28 1.30 1.10 < > 1.02 GLUCOSE 108 123 131 < > 97 CALCIUM 9.1 8.9 8.6 < > 9.1 MAGNESIUM 0.93 0.89 0.96 < > 0.80 PHOS -- -- -- -- 3.9 < > = values in this interval not displayed. Recent Labs 09/02/1734008/30/172217 PROT 6.6 6.4 ALBUMIN 3.7 3.7 BILITOT 0.4 0.6 BILIDIR 0.1 0.2 AST 22 25 ALT 30 40 ALKPHOS 39* 45 Recent Labs 08/30/17 2218 CK 243* TROPONINT 0.01* Recent Labs 09/04/17 0332 INR 1.4* Cardiology/Vascular: None new Imaging: None new Diagnostics: None new Assessment/Plan: Mr. Cong Khan is a 62 y/o man with a PMHx of systolic heart failure (EF 31%), atrial fibrillation (not on anticoagulation), mitral valve disease (s/p bioprosthetic valve replacement), and aortic valve disease (s/p bioprosthetic valve replacement) who was admitted for an acute systolic heart failure exacerbation, atrial flutter and cardioembolic stroke. Mr. Khan continues to endorse orthopnea and dry cough but appears roughly euvolemic on exam. He has been roughly net neutral in terms of volume status over the past 24 hrs and continues to endorse subjective orthopnea so we will continue with diuresis, we will also transition from heparin gtt to therapeutic lovenox while bridging to coumadin which should decrease IV intake as well. He has been started on ACEi, Spironolactone, we will increase BB today. While his reduced LVEF and HTN might respond better to Carvedilol, his rates are appropriately controlled with metoprolol so we will continue withthis as his a- flutter is likely difficult to rate control. Once his INR is therapeutic he will likely be ready for discharge and could even be bridged with lovenox as an outpatient. In the future pt will require further evaluation of his Aortic Valve disease, evaluation for possible MANAGER STRATEGIC DEVELOPMENT-D given wide QRS and low EF, and possible cardioversion. # Acute systolic heart failure: -Orthopnea with euvoluemic exam -Lasix 80 mg IV BID. Additional prn with goal negative 1-1.5 L -Spironolactone 25 mg QD - increase Metoprolol tartrate to 25 mg QID, will switch to succinate on discharge -Lisinopril 20 mg QD # Cardioembolic stroke: -Aspirin 81 mg QD -Atorvastatin 80 mg QHS ?? # Atrial flutter with RVR -Rate control with metoprolol as above -IV metoprolol 5 mg prn -d/c heparin, start therapeutic lovenox at 1mg/kg BID -Continue warfarin. INR goal 2-3 (repeat dose with 7.5 mg today) -Consider adding digoxin # Aortic stenosis -Severe by valvular area, moderate by mean transvalvular flow -Consider repeat TTE or dobutamine stress echo when HF adequately treated # Hypertension: - Lisinopril 20 mg QD # Face rash -Hydrocortisone 1% cream BID # Sleeping difficulties - Melatonin 6 mg QHS ?? # Other: -Diet: cardiac diet -DVT ppx: d/c heparin gtt, start therapeutic lovenox today -GI ppx: none indicated ?? Dispo: home with close f/u pending course Yogesh Regan DO PGY2, Internal Medicine Pager [phone] 09/04/2017 Attending Attestation Please see Dr. Regan's note for details of the patient history of presentation and data. I have discussed, reviewed and agree with the documented history, physical findings, assessment and plan of care. Active Hospital Problems Diagnosis ??? Valvular disease - mitral valve prolapse, repair in 2009 - repeat surgery in 2010, ? Mitral bioprosthesis placed at that time and MAZE - AVR 2013. ([facility]) ??? Aneurysm of aortic arch Noted on echo at [facility] 5.3cm (08/30/2017) ??? Acute systolic congestive heart failure Baseline not known currently Current echo :EF 31%, septum paradoxical motion (dys-synchrony present), mod to severe LVH, not dilated by linear diameter, severe LAE mod reduced RV function, mod pHTN. Mean trans aortic gradient in mid 20's, DVI 0.22, transmitral gradient 6 at 95 bpm ??? Atrial fibrillation ??? Stroke Right hemispheric, left hand/arm symptoms. Presumably cardioemoblic in patient with valvular afib who had discontinued warfarin. Resolved Hospital Problems Diagnosis Date Resolved No resolved problems to display. The acute decompensated heart failure and concurrent acute CVA are the 2 primary issues. My initial impression is that the current prosthetic valves are not driving the heart failure issue. The patientis not aware of an ASCVD history, he has not had PCI or bypasses as part of his valvular surgeries. . We would like to obtain records from his prior heart surgeries and ? Prior medical dir but this has not been possible thus far. WE will look to contact his prior medical dir tomorrow when his officeis open since the [facility] in [facility] has not been able to help with records to date. Recently he has been noncompliant with medications and has stopped anticoagulation ?? His condition is slowly improving with diuresis. To augment diuresis and improve neurohormonal blockade for the systolic heart failure we will add spironolactone and go to lovenox as he is getting a lot of IV fluid with the heparin gtt, his INR is 1.4 so we continue to bridge with heparin products He reports not alcohol in the past 4 years so EtOH induced cardiomyopathy is less likely to be the cause of his CM. We do not really know his baseline LV function so we are not aware if the CM is new or residual from his valvular disease. I think the best management for nowis getting him back on warfarin to prevent cardioembolic strokes, diuresis, institution/uptitration of neurohormonal blockade. The aflutter rate is adequately controlled at 60-90 bpm, we will increase metoprolol dose for neurohormonal effects today. ? If the above measures are not sufficient other considerations include latter-day of sinus rhythm, bi-ventricular pacing, clarification of severity. ??Once we know more about his history we can better evaluate the need for ischemia evaluation and the aortic valve's status. ?? Jae Feldman MD Staff Profile Stitching Machine Operator Jae Feldman MD - 09/03/2017 6:42 AM EDT Inpatient Hospital Medicine Progress Note Active Hospital Problems Diagnosis ??? Acute systolic congestive heart failure ??? Atrial fibrillation ??? Cardiogenic pulmonary edema ??? Stroke Resolved Hospital Problems Diagnosis Date Resolved No resolved problems to display. Active Non-Hospital Problems Diagnosis ??? Hypertension ??? H/O mitral valve replacement with tissue graft ??? H/O aortic valve replacement with porcine valve Total duration of encounter: 4 days Patient ID: Mr. Cong Khan is a 62 y/o man with a PMHx of systolic heart failure (EF 31%), atrialfibrillation (not on anticoagulation), mitral valve disease (s/p bioprosthetic valve replacement), and aortic valve disease (s/p bioprosthetic valve replacement) who was admitted for an acute systolic heart failure exacerbation, atrial flutter and ischemic stroke. 24 H/subjective: -Lasix 40 mg IV x2, 60 mg IV x1 - negative 637 ml -Tele: atrial fib/flutter, some PVCs -RA all day, RA most of night, 1 L NC for 1-2 hours overnight -Feeling ok this morning. Some orthopnea yesterday. Continues to feel better with supplemental oxygen. No CP, LH. Inpatient Medications: Scheduled Meds: ??? lisinopril 20 mg Oral Daily ??? melatonin 6 mg Oral Nightly ??? aspirin 81 mg Oral Daily ??? furosemide 20 mg Oral Daily ??? warfarin (COUMADIN) daily order reminder Oral Q24H ??? meTOPROLOL 12.5 mg Oral Q6H BERTHA ??? sodium chloride 0.9 % 5 mL Intravenous Q12H ??? benzonatate 100 mg Oral TID ??? atorvastatin 80 mg Oral QPM Continuous Infusions: ??? heparin (porcine) 1,300 Units/hr (09/03/17 0503) PRN Meds:.flu vacc (6 mos-64 yrs)(PF), meTOPROLOL, sodium chloride 0.9 %, lidocaine, acetaminophen, heparin (porcine) AND heparin (porcine) Vitals: BPs mostly 120-150 most of yesterday, one episode into 170s Last value Range last 24 hrs Temperature Temp: 37.1 ??C (98.8 ??F) Temp: [36.3 ??C (97.3 ??F)-37.1 ??C (98.8 ??F)] Heart Rate Heart Rate: 92 Heart Rate: [54-132] Blood Pressure BP: (!) 122/95 BP: (121-179)/(84-117) Respiratory Rate Resp: 18 Resp: [16-18] SpO2 SpO2: 97 % on RA SpO2: [96 %-100 %] Ins/Outs: Intake/Output Summary (Last 24 hours) at 09/03/17 0642 Last data filed at 09/03/17 0600 Gross per 24 hour Intake 2213 ml Output 2850 ml Net -637 ml Net: negative 762 ml SA Physical Exam Gen: NAD, resting comfortably HEENT: sclera non-icteric. EOMI CV: Regular rate, irregular rhythm, S1S2, holosystolic murmur heard best at RUSB, JVP ~7-8 cm H2O with bed at 30 degrees. Pulm: good air movement, CTAB, no wheezing, crackles or rhonchi. Abd: soft, NT/ND, +BS Ext: no peripheral edema, no clubbing, no cyanosis. Skin: Erythematous rash over left perioral area. Neuro: AOx3. Hand lime burner 3/5 on left hand Labs: Recent Labs 09/03/1732509/02/1734009/01/17406 WBC 5.6 5.5 5.0 HGB 13.6* 13.7 13.4* PLATELET 210 209 205 Recent Labs 09/03/1732509/02/1734009/[id number]/[id number] NA 139 138 140 < > 140 K 4.0 4.3 3.6 < > 3.4* CL 98 99 102 < > 100 CO2 27 26 24 < > Not Perf BUN 22* 21* 19 < > 23* CREATININE 1.30 1.10 0.97 < > 1.02 GLUCOSE 123 131 115 < > 97 CALCIUM 8.9 8.6 8.2* < > 9.1 MAGNESIUM 0.89 0.96 0.81 < > 0.80 PHOS -- -- -- -- 3.9 < > = values in this interval not displayed. Recent Labs 09/02/1734008/30/172217 PROT 6.6 6.4 ALBUMIN 3.7 3.7 BILITOT 0.4 0.6 BILIDIR 0.1 0.2 AST 22 25 ALT 30 40 ALKPHOS 39* 45 Recent Labs 08/30/172217 CK 243* TROPONINT 0.01* INR 1.2 Cardiology/Vascular: None new Imaging: None new Diagnostics: None new Assessment/Plan: Mr. Cong Khan is a 62 y/o man with a PMHx of systolic heart failure (EF 31%), atrial fibrillation (not on anticoagulation), mitral valve disease (s/p bioprosthetic valve replacement), and aortic valve disease (s/p bioprosthetic valve replacement) who was admitted for an acute systolic heart failure exacerbation, atrial flutter and cardioembolic stroke. Will continue to diurese today as patient isendorsing symptoms of heart failure, although continues to appear euvolemic on exam. Will add spironolactone to medical regimen to augment diuresis. Will continue to anticoagulate with heparin bridge to warfarin. Once patient is adequately diuresed, on medical management for HF and with therapeutic INR, patient will be ready for discharge. Left hand weakness continues to improve. # Acute systolic heart failure: -Orthopnea with euvoluemic exam -Lasix 80 mg IV. Additional prn with goal negative 1-1.5 L -Spironolactone 25 mg QD -Metoprolol 12.5 mg QID -Lisinopril 20 mg QD # Cardioembolic stroke: -Aspirin 81 mg QD -Atorvastatin 80 mg QHS ?? # Atrial flutter with RVR -Rate control with metoprolol 12.5 mg Q6hrs -IV metoprolol 5 mg prn -Continue heparin gtt -Continue warfarin. INR goal 2-3 -Consider adding digoxin # Aortic stenosis -Severe by valvular area, moderate by mean transvalvular flow -Consider repeat TTE or dobutamine stress echo when HF adequately treated # Hypertension: - Lisinopril 20 mg QD # Face rash -Hydrocortisone 1% cream BID # Sleeping difficulties - Melatonin 6 mg QHS ?? # Other: -Diet: cardiac diet -DVT ppx: on heparin drip -GI ppx: none indicated ?? Dispo: pending course Dwayne Stanley MD PGY1, Internal Medicine Pager [phone] 09/03/2017 Attending Attestation Please see Lizeth's note for details of the patient history of presentation and data. I have discussed, reviewed and agree with the documented history, physical findings, assessment and plan of care. Active Hospital Problems Diagnosis ??? Valvular disease - mitral valve prolapse, repair in 2009 - repeat surgery in 2010, ? Mitral bioprosthesis placed at that time and MAZE - AVR 2013. ([facility] [place]) ??? Aneurysm of aortic arch Noted on echo at [facility] 5.3cm (08/30/2017) ??? Acute systolic congestive heart failure Baseline not known currently Current echo :EF 31%, septum paradoxical motion (dys-synchrony present), mod to severe LVH, not dilated by linear diameter, severe LAE mod reduced RV function, mod pHTN. Mean trans aortic gradient in mid 20's, DVI 0.22, transmitral gradient 6 at 95 bpm ??? Atrial fibrillation ??? Stroke Right hemispheric, left hand/arm symptoms. Presumably cardioemoblic in patient with valvular afib who had discontinued warfarin. Resolved Hospital Problems Diagnosis Date Resolved No resolved problems to display. ?? The acute decompensated heart failure and concurrent acute CVA are the 2 primary issues. My initial impression is that the current prosthetic valves are not driving the heart failure issue. The patientis not aware of an ASCVD history, he has not had PCI or bypasses as part of his valvular surgeries. . We would like to obtain records from his prior heart surgeries and ? Prior medical dir but this has not been possible thus far. Recently he has been noncompliant with medications and has stopped anticoagulation. His condition is improving with diuresis. To augment diuresis and improve neurohormonal blockade forthe systolic heart failure we will add spironolactone. He reports not alcohol in the past 4 years soEtOH induced cardiomyopathy is less likely to be the cause of his CM. We do not really know his baseline LV function so we are not aware if the CM is new or residual from his valvular disease. I think the best management for nowis getting him back on warfarin to prevent cardioembolic strokes, diuresis, institution/uptitration of neurohormonal blockade. ?? If the above measures are not sufficient other considerations include latter-day of sinus rhythm, bi-ventricular pacing, clarification of severity. Once we know more about his history we can betterevaluate the need for ischemia evaluation. Jae Feldman MD Staff Profile Stitching Machine Operator Lali Regalado RN - 09/02/2017 2:12 PM EDT Call from a friend worried that Mr. Khan is worried about and want to discuss DPOA. Will meet with him today. Lali Regalado RN - 09/02/2017 10:32 AM EDT Patient discussed in multidisciplinary rounds. Patient here for CHF Will continue to follow for discharge planning needs. Jae Feldman MD - 09/02/2017 6:35 AM EDT Inpatient Hospital Medicine Progress Note Active Hospital Problems Diagnosis ??? Acute systolic congestive heart failure ??? Atrial fibrillation ??? Cardiogenic pulmonary edema ??? Stroke Resolved Hospital Problems Diagnosis Date Resolved No resolved problems to display. Active Non-Hospital Problems Diagnosis ??? Hypertension ??? H/O mitral valve replacement with tissue graft ??? H/O aortic valve replacement with porcine valve Total duration of encounter: 3 days Patient ID: Mr. Cong Khan is a 62 y/o man with a PMHx of systolic heart failure (EF 31%), atrialfibrillation (not on anticoagulation), mitral valve disease (s/p bioprosthetic valve replacement), and aortic valve disease (s/p bioprosthetic valve replacement) who was admitted for an acute systolic heart failure exacerbation, atrial flutter and ischemic stroke. 24 H/subjective: -20 mg PO lasix x1, 20 mg IV lasix x1, 40 mg IV lasix x1 - negative 378 ml -Tele: atrial fib/flutter, some PVCs -Transitioned to 1 L NC late yesterday afternoon -Feeling ok this morning. Some orthopnea yesterday. Slept better with the oxygen. No CP, LH. Inpatient Medications: Scheduled Meds: ??? melatonin 6 mg Oral Nightly ??? aspirin 81 mg Oral Daily ??? furosemide 20 mg Oral Daily ??? lisinopril 10 mg Oral Daily ??? warfarin (COUMADIN) daily order reminder Oral Q24H ??? meTOPROLOL 12.5 mg Oral Q6H BERTHA ??? sodium chloride 0.9 % 5 mL Intravenous Q12H ??? benzonatate 100 mg Oral TID ??? atorvastatin 80 mg Oral QPM Continuous Infusions: ??? heparin (porcine) 1,450 Units/hr (09/01/17 9557) PRN Meds:.flu vacc (6 mos-64 yrs)(PF), meTOPROLOL, sodium chloride 0.9 %, lidocaine, acetaminophen, heparin (porcine) AND heparin (porcine) Vitals: BPs mostly 140-150s yesterday. Last value Range last 24 hrs Temperature Temp: 37.1 ??C (98.8 ??F) Temp: [36.6 ??C (97.9 ??F)-37.4 ??C (99.3 ??F)] Heart Rate Heart Rate: 88 Heart Rate: [65-108] Blood Pressure BP: (!) 147/105 BP: (121-161)/(82-117) Respiratory Rate Resp: 16 Resp: [16-20] SpO2 SpO2: 98 % on 1 L NC SpO2: [97 %-100 %] Ins/Outs: Intake/Output Summary (Last 24 hours) at 09/02/17 0635 Last data filed at 09/02/17 0600 Gross per 24 hour Intake 2747 ml Output 3125 ml Net -378 ml Net: negative 125 ml SA Physical Exam Gen: NAD, resting comfortably HEENT: sclera non-icteric. EOMI CV: Regular rate, irregular rhythm, S1S2, holosystolic murmur heard best at RUSB, JVP ~7-8 cm H2O with bed at 30 degrees. Pulm: good air movement, CTAB, no wheezing, crackles or rhonchi. Abd: soft, NT/ND, +BS Ext: no peripheral edema, no clubbing, no cyanosis. Skin: warm and dry, no rash or petechiae Neuro: AOx3. Hand lime burner 3/5 on left hand Labs: Recent Labs 09/02/1734009/01/17 0407 08/30/17 2357 WBC 5.5 5.0 5.7 HGB 13.7 13.4* 13.1* PLATELET 209 205 210 Recent Labs 09/02/17 03409/01/17 0407 08/31/17 0640 08/30/178 NA 138 140 139 140 K 4.3 3.6 3.6 3.4* CL 99 102 99 100 CO2 26 24 26 Not Perf BUN 21* 19 20 23* CREATININE 1.10 0.97 1.10 1.02 GLUCOSE 131 115 105 97 CALCIUM 8.6 8.2* 8.8 9.1 MAGNESIUM 0.96 0.81 0.96 0.80 PHOS -- -- -- 3.9 Recent Labs 08/30/17 2218 PROT 6.4 ALBUMIN 3.7 BILITOT 0.6 BILIDIR 0.2 AST 25 ALT 40 ALKPHOS 45 Recent Labs 08/30/17 2218 CK 243* TROPONINT 0.01* INR 1.2 Cardiology/Vascular: None new Imaging: None new Diagnostics: None new Assessment/Plan: Mr. Cong Khan is a 62 y/o man with a PMHx of systolic heart failure (EF 31%), atrial fibrillation (not on anticoagulation), mitral valve disease (s/p bioprosthetic valve replacement), and aortic valve disease (s/p bioprosthetic valve replacement) who was admitted for an acute systolic heart failure exacerbation, atrial flutter and cardioembolic stroke. TTE during admission demonstrated possible severe by valvular area, but there is a question of whether or not this was falsely low as LV EF islow. This can be further investigated as outpatient. Will hold off on JOJO guided cardioversion todayas patient had recent cardioembolic stroke. Will continue to anticoagulate today with heparin bridgeto warfarin. JOJO guided cardioversion can be considered as outpatient if indicated. Patient has likely been in atrial flutter for long period of time and it is unclear if patient would stay in sinus rhythm post- cardioversion. Left head weakness continues to improve today. In the meantime, will continue to diurese for heart failure exacerbation as patient requiring supplemental oxygen overnight. Will optimize medical management when patient is adequately diuresed. # Acute systolic heart failure: -Continues with euvoluemic exam. Increased oxygen requirements -Lasix 40 mg IV. Goal negative 1-1.5 L -Will check LFTs tomorrow # Cardioembolic stroke: -Aspirin 81 mg QD -Atorvastatin 80 mg QHS ?? # Atrial flutter with RVR -Rate control with metoprolol 12.5 mg Q6hrs -IV metoprolol 5 mg prn -Continue heparin gtt -Continue warfarin. INR goal 2-3 -Consider adding digoxin # Aortic stenosis -Severe by valvular area, moderate by mean transvalvular flow -Consider repeat TTE or dobutamine stress echo when HF adequately treated # Hypertension: - Lisinopril 10 mg QD # Sleeping difficulties - Melatonin 6 mg QHS ?? # Other: -Diet: cardiac diet -DVT ppx: on heparin drip -GI ppx: none indicated ?? Dispo: pending course Dwayne Stanley MD PGY1, Internal Medicine Pager [phone] 09/02/2017 Attending Attestation Please see Dr. Lowry's note for details of the patient history of presentation and data. I have discussed, reviewed and agree with the documented history, physical findings, assessment and plan of care. Active Issues 1. R hemispheric stroke, acute. Cardioemobolic. 2. Afib/flutter, persistent. Duration unclear, prior MAZE in 2010. Valvular. 3. ADHF, systolic. 4. Valvular disease - bioprosthetic mitral valve, mean gradient 6mmHg at 95bpm, bioprosthetic aortic valve opens well visually. Mean gradient in the 20's. (pt in afib with beat to beat variability). 5. Hypertension, severe LVH The acute decompensated heart failure and concurrent acute CVA are the 2 primary issues. My initial impression is that the current prosthetic valves are not driving the heart failure issue. We are not aware of an ASCVD history. We would like to obtain records from his prior heart surgeries and ? Priorcardiologist. Recently he has been noncompliant with medications and has stopped anticoagulation. Questions to answer include : etiology of aortic valve disease, pattern of afib after MAZE, status of coronary disease, baseline LV function. Outside of coronary disease alcohol is a second possible cause of his cardiomyopathy as he has a long history of alcoholism. I think the best initial management for this patient is getting him back on warfarin to prevent cardioembolic strokes, diuresis, institution of neurohormonal blockade and alcohol cessation. If the above measures are not sufficient other considerations include latter-day of sinus rhythm, bi-ventricular pacing, clarification of severity. Once we know more about his history we can betterevaluate the need for ischemia evaluation. I have examined the patient myself and personally reviewed all studies. In addition, I certify that I am a [facility] credentialed attending provider with admitting privileges and that the patient meets or has met medical necessity to require an inpatient IPI level of care meeting a minimum of two midnights or is on the CMS inpatient only procedure list (status C) due to: decompensated congestive heart failure requiring IV medication and fluid monitoring Jae Feldman MD Staff Profile Stitching Machine Operator Junito Apodaca MD - 09/01/2017 6:20 AM EDT Inpatient Hospital Medicine Progress Note Active Hospital Problems Diagnosis ??? Acute systolic congestive heart failure ??? Atrial fibrillation ??? Cardiogenic pulmonary edema ??? Stroke Resolved Hospital Problems Diagnosis Date Resolved No resolved problems to display. Active Non-Hospital Problems Diagnosis ??? Hypertension ??? H/O mitral valve replacement with tissue graft ??? H/O aortic valve replacement with porcine valve Total duration of encounter: 2 days Patient ID: Mr. Cong Khan is a 62 y/o man with a PMHx of systolic heart failure (EF 20%), atrialfibrillation (not on anticoagulation), mitral valve disease (s/p bioprosthetic valve replacement), and aortic valve disease (s/p bioprosthetic valve replacement) who was admitted for an acute systolic heart failure exacerbation. 24 H/subjective: -TTE - LV EF 31%, severe aortic stenosis by area (0.7 cm2) mean/peak trans- valvular gradient 23/41,,moderate aortic regurgitation, trace mitral regurgitation, mild-moderate tricuspid regurgitation, global apical and mid hypokinesis/akinesis -5 mg IV metoprolol x2 for elevated HRs -Restarted warfarin -Tele: atrial fib/flutter -Feeling ok this morning. Endorses difficulty breathing when he lies flat and waking up at night with difficulty breathing. Does not describe these episodes as dyspneic. States he feels a pressure in his chest and a rattling when he breathes. Left hand weakness is improving. No numbness or tingling.No CP or LH. Inpatient Medications: Scheduled Meds: ??? melatonin 6 mg Oral Nightly ??? aspirin 81 mg Oral Daily ??? warfarin (COUMADIN) daily order reminder Oral Q24H ??? meTOPROLOL 12.5 mg Oral Q6H BERTHA ??? sodium chloride 0.9 % 5 mL Intravenous Q12H ??? benzonatate 100 mg Oral TID ??? atorvastatin 80 mg Oral QPM Continuous Infusions: ??? heparin (porcine) 1,450 Units/hr (09/01/17 0702) PRN Meds:.meTOPROLOL, sodium chloride 0.9 %, lidocaine, acetaminophen, heparin (porcine) AND heparin (porcine) Vitals: HRs 90s-110s after starting metoprolol Last value Range last 24 hrs Temperature Temp: 36.6 ??C (97.9 ??F) Temp: [36.6 ??C (97.9 ??F)-37 ??C (98.6 ??F)] Heart Rate Heart Rate: 96 Heart Rate: [70-132] Blood Pressure BP: (!) 161/111 BP: (111-168)/(88-130) Respiratory Rate Resp: 20 Resp: [15-34] SpO2 SpO2: 99 % SpO2: [94 %-100 %] Ins/Outs: Intake/Output Summary (Last 24 hours) at 09/01/17 1009 Last data filed at 09/01/17 0904 Gross per 24 hour Intake 1400 ml Output 800 ml Net 600 ml Net: positive 13 ml SA Physical Exam Gen: NAD, resting comfortably HEENT: sclera non-icteric. EOMI CV: Regular rate, irregular rhythm, S1S2, holosystolic murmur heard best at RUSB, frequent ectopic beats, JVP ~7-8 cm H2O with bed at 30 degrees Pulm: good air movement, CTAB, no wheezing, crackles or rhonchi. Begins coughing with flattening of bed. Relieved with elevation Abd: soft, NT/ND, +BS Ext: no peripheral edema, no clubbing, no cyanosis. Skin: warm and dry, no rash or petechiae Neuro: AOx3. CN II-XII intact. Strength 5/5 in arms and legs bilaterally. 2-3/5 hand lime burner with left hand, improved from yesterday Labs: Recent Labs 09/01/17 0407 08/30/17 2357 WBC 5.0 5.7 HGB 13.4* 13.1* PLATELET 205 210 Recent Labs 09/01/17 0407 08/31/17 0640 08/30/178 NA 140 139 140 K 3.6 3.6 3.4* CL 102 99 100 CO2 24 26 Not Perf BUN 19 20 23* CREATININE 0.97 1.10 1.02 GLUCOSE 115 105 97 CALCIUM 8.2* 8.8 9.1 MAGNESIUM 0.81 0.96 0.80 PHOS -- -- 3.9 Recent Labs 08/30/172217 PROT 6.4 ALBUMIN 3.7 BILITOT 0.6 BILIDIR 0.2 AST 25 ALT 40 ALKPHOS 45 Recent Labs 08/30/17 2218 CK 243* TROPONINT 0.01* INR 1.2 Cardiology/Vascular: TTE 08/31 1. The left ventricle is severely dilated.(by enddiastolic volume index based on biplane MOD, within normal limits by traditionally used LVEDd). Severe concentric left ventricular hypertrophy is observed. There is no evidence of LVOT obstruction. Global left ventricular systolic function is moderately reduced. The quantitative left ventricular ejection fraction by biplane Walker's method is 31%. There are left ventricular segmental wall motion abnormalities present, as shown in the diagram below. The basal anteroseptal, and mid anteroseptal wall segments are dyskinetic (score 4). The basal inferior, basal inferoseptal, mid inferior, mid inferoseptal, apical septal, and apical inferior wall segments are akinetic (score 3). The mid anterior, mid anterolateral, mid inferolateral, apical anterior, and apical lateral wall segments are hypokinetic (score 2). 2. The left atrium is severely dilated. 3. The right ventricle is normal in size. Right ventricular global systolic function is moderately reduced. The estimated pulmonary artery systolic pressure is 37 mmHg. 4. 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 The mean/peak trans-valvular gradient across the aortic valve is 23/41 mmHg, DOI (VTI) 0.21, suggesting stenosis of the aortic prosthesis, calculated valve area (VTI) 0.7 cm2. Moderate (2+/4+) aortic valve prosthesis regurgitation is present. 5. A bovine bio-prosthetic mitral valve is present. The mean gradient across the mitral valve is 6 mmHg @ 95 bpm. There is a trace amount of mitral prosthesis regurgitation. 6. There is mild to moderate (1-2+/4+) tricuspid regurgitation present. 7. No prior study is available for side by side comparison. Imaging: None new Diagnostics: None new Assessment/Plan: Mr. Cong Khan is a 62 y/o man with a PMHx of systolic heart failure (EF 20%), atrial fibrillation (not on anticoagulation), mitral valve disease (s/p bioprosthetic valve replacement), and aortic valve disease (s/p bioprosthetic valve replacement) who was admitted for an acute systolic heart failure exacerbation, atrial flutter and cardioembolic stroke. TTE performed yesterday with severe aortic stenosis by valvular area, but not by mean transvalvular flow. Patient also with poor LV ejection fraction which may be why valvular area appears to be severely stenotic. He had this valve replaced 3 years ago which be a relatively fast progression to severe aortic stenosis. Patient with symptoms of heart failure exacerbation today, but appears relatively euvolemic on exam. Will pursue gentle diuresis today with goal of < negative 1 L today. Will continue with heparin drip today and warfarin with daily monitoring of INR with goal of 2-3. Will plan for JOJO with cardioversion tomorrow. Hopefully cardiac function will improve with a regular rhythm. If patient remains symptomatic after cardioversion and adequate diuresis, could consider outpatient dobutamine stress echo to reassess aortic valve function with augmented LV function. Left sided stroke symptoms improving. Patient has been hypertensive since admission. As there was nofocal area of stenosis on CTA of carotids and habematolel of [place], there are no areas that require highBPs to maintain perfusion. It would be reasonable to start lisinopril today, which we plan to do. Patient has responded well to amlodipine and will consider adding this if not adequately controlled with lisinopril. # Acute systolic heart failure: -euvolemic on exam today, but with symptoms -Lasix 20 mg PO for goal of negative 0.5-1 L # Cardioembolic stroke: -Continue heparin gtt -Aspirin 81 mg QD -Atorvastatin 80 mg QHS ?? # Atrial flutter with RVR -Rate control with metoprolol 12.5 mg Q6hrs -IV metoprolol 5 mg prn -Continue heparin gtt -Continue warfarin -JOJO with cardioversion tomorrow # Aortic stenosis -Severe by valvular area, moderate by mean transvalvular flow -Consider repeat TTE or dobutamine stress echo when in sinus rhythm and heart failure sytmptoms adequately treated # Hypertension: - Lisinopril 10 mg QD # Sleeping difficulties - Melatonin 6 mg QHS ?? # Other: -Diet: cardiac diet -DVT ppx: on heparin drip -GI ppx: none indicated ?? Dispo: pending course Dwayne Stanley MD PGY1, Internal Medicine Pager [phone] 09/01/2017 Cardiology Attending Note I interviewed and examined the patient during comprehensive bedside rounds. I concur with the summary of interval events, active hospital-focused problem list and plan of care as described in the note below. I personally reviewed the medications, laboratory results, treatment decisions and updated thepatient. Junito Apodaca MD, FACP, FACC Section of Cardiovascular Medicine [facility] Bilingual Sales Representativeanti tank missileman [facility] [employer] [facility] This patient meets or has met medical criteria to require an inpatient level of care, i.e. a minimumof two midnights in the hospital with multiple complex problems. Nataly Ortiz DT - 08/31/2017 3:42 PM EDT Nutrition Services - Initial Note Cong Khan : 1955 AGE: 62 y.o. Patient Active Problem List Diagnosis Date Noted ??? Hospital-Acute systolic congestive heart failure 08/30/2017 ??? Hospital-Atrial fibrillation 08/30/2017 ??? Hospital-Cardiogenic pulmonary edema 08/30/2017 ??? Hypertension 08/30/2017 ??? H/O mitral valve replacement with tissue graft 08/30/2017 ??? H/O aortic valve replacement with porcine valve 08/30/2017 ??? Hospital-Stroke 08/30/2017 Reason for Nutrition Intervention: Diagnosis Diet Order: [facility] [place] Appetite: Okay Food allergies: NKFA Chewing/Swallowing difficulty: None noted Ht Readings from Last 3 Encounters: 08/30/17 175.3 cm (5' 9) Wt Readings from Last 3 Encounters: 08/31/17 73.8 kg (162 lb 11.2 oz) Body mass index is 24.03 kg/(m^2). Assessment: Patient seen for diagnosis: CHF. Patient informed of current diet order and denies need for nutrition education. Patient stated he has [facility] Due to diagnosis, and PMhx, recommend Na2gm diet. He reported an okay appetite without difficulty chewing or swallowing. He is tolerating current diet without nausea or vomiting. Per nursing notes documenting 50-100% PO intakes on 08/31. Patient stated he ate okay at breakfast and consumed allof his lunch meal. Patient filling out menu choices to promote and encourage PO Intake with foods helikes. Patient able to open his meal containers and cut up his foods okay. Informed patient of supple mental shakes available should he request. Patient thankful for information. Patient had no further questions at this time. Encouraged patient to contact Food and Nutrition services with any questions or requests that may arise. Nutrition will monitor and follow up weekly. Nutrition Plan: Recommend Na2gm diet. Recommend Daily Multi Vitamins. Monitor weight. Encourage good po intake. Support and encouragement provided. Nutrition services to follow weekly thru hospital course unless consulted in the interim. BILL Bui Lali Regalado RN - 08/31/2017 1:05 PM EDT Office of Care Management Initial Assessment Lali Regalado RN reviewed record and discussed patient with Care Team. Source of Information: patient and chart Introduced self/reviewed role; services accepted. Reason for Hospitalization: Reason for Admission as Stated by Patient: short of breath Past Medical History: Diagnosis Date ??? Alcohol use disorder ??? Atrial fibrillation ??? CHF (congestive heart failure) ??? Hypertension ??? Mitral valve prolapse Hospitalizations Within the Past 30 Days: no Anticipated Length Of Stay (If known): 2-5 days Current Decision-Making Capacity: able to make decisions Advance Care Planning: No. Discussed with patient importance and process for doing Advance Directives. Provided copy(ies) of [facility] Advance Directives Taking Steps booklet with forms. Current Coping/Education/Information Needs: informed by team up dated Current Functional Ability: independent Functional Status Prior to Admission: independent Home Environment: just moved into a new home one level, currently lives alone but may be renting a room Social & Family Supports/Community Resources: none Behavioral Health History: none Substance Use/Abuse: admits to former use of cocaine but none in over 20 years Other Pertinent/Service Specific Information: none Health/Prescription Coverage: Primary Insurance: MEDICARE Secondary Insurance: N/A Prescription Coverage: yes [facility]erred [facility]acy: [facility] Other: none Primary Care Provider: Patient has new PCP in [facility] primary care does not know the name yet. Patient/Caregiver Goals of Treatment: discharge to home Potential Needs for Transition of Care: Rehab/SNF: not anticipated Home Health: not anticipated DME: none Dialysis: no Community Resources: none Transportation: none Other: none Anticipated Barriers to Discharge/Special Considerations: none Plan: discharge to home A member of the Care Management team will continue to monitor progress, follow for continuity of care and assist with transition of care planning. Lali Regalado RN Pager: [phone] Dwayne Stanley MD - 08/31/2017 6:35 AM EDT Inpatient Hospital Medicine Progress Note Active Hospital Problems Diagnosis ??? Acute systolic congestive heart failure ??? Atrial fibrillation ??? Cardiogenic pulmonary edema ??? Stroke Resolved Hospital Problems Diagnosis Date Resolved No resolved problems to display. Active Non-Hospital Problems Diagnosis ??? Hypertension ??? H/O mitral valve replacement with tissue graft ??? H/O aortic valve replacement with porcine valve Total duration of encounter: 1 day Patient ID: Mr. Cong Khan is a 62 y/o man with a PMHx of systolic heart failure (EF 20%), atrialfibrillation (not on anticoagulation), mitral valve disease (s/p bioprosthetic valve replacement), and aortic valve disease (s/p bioprosthetic valve replacement) who was admitted for an acute systolic heart failure exacerbation. 24 H: CT head - evolving acute right frontal lobe infarct CT Carotids and habematolel of [place] - no obstruction or occlusion, aneurysmal dilation of ascending aorta HRs into 120-130 this morning - received 5 mg IV metoprolol - HRs into 90s Tele: atrial flutter Subjective: Feels better this morning. Left hand weakness and movement is improving. No numbness or tingling Some orthopnea. No palpitations, CP or LH. Inpatient Medications: Scheduled Meds: ??? meTOPROLOL 12.5 mg Oral 2 times per day ??? sodium chloride 0.9 % 5 mL Intravenous Q12H ??? benzonatate 100 mg Oral TID ??? atorvastatin 80 mg Oral QPM ??? aspirin 325 mg Oral Daily Continuous Infusions: ??? heparin (porcine) 1,450 Units/hr (08/31/17 0036) PRN Meds:.meTOPROLOL, sodium chloride 0.9 %, lidocaine, acetaminophen, heparin (porcine) AND heparin (porcine) Vitals: Last value Range last 24 hrs Temperature Temp: 36.7 ??C (98.1 ??F) Temp: [36.6 ??C (97.9 ??F)-36.7 ??C (98.1 ??F)] Heart Rate Heart Rate: 114 Heart Rate: [84-124] Blood Pressure BP: (!) 135/106 BP: (135-164)/(88-125) Respiratory Rate Resp: 22 Resp: [18-27] SpO2 SpO2: 99 % SpO2: [91 %-99 %] Ins/Outs: Intake/Output Summary (Last 24 hours) at 08/31/17 0830 Last data filed at 08/31/17 0600 Gross per 24 hour Intake 533 ml Output 1050 ml Net -517 ml Physical Exam Gen: NAD, resting comfortably HEENT: sclera non-icteric. EOMI CV: Regular rate, irregular rhythm, , S1S2, murmur, difficult to appreciate systolic vs diastolic due to frequency of ectopic beats Pulm: good air movement, CTAB, no wheezing, crackles or rhonchi Abd: soft, NT/ND, +BS Ext: no peripheral edema, no clubbing, no cyanosis. Skin: warm and dry, no rash or petechiae Neuro: AOx3. no focal deficits grossly noted. CN II-XII intact. Strength 5/5 in arms and legs bilaterally. 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 Improved aeration with decreased confluence of the right lower lobe opacity. 2. Small right pleural effusion. Imaging: CT head 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 No associated hemorrhage. CT Carotids and habematolel of [place] IMPRESSION 1. Normal CT of the head and neck with no critical stenosis, abrupt occlusion, or dissection. 2. Aneurysmal dilation of the ascending aorta at 4.5 cm. Diagnostics: None new Assessment/Plan: Mr. Cong Khan is a 62 y/o man with a PMHx of systolic heart failure (EF 20%), atrial fibrillation (not on anticoagulation), mitral valve disease (s/p bioprosthetic valve replacement), and aortic valve disease (s/p bioprosthetic valve replacement) who was admitted for an acute systolic heart failure exacerbation and found to be in atrial flutter with clinical symptoms and CT findings suggestive ofa stroke. Etiology of stroke is most likely cardioembolic given the fact that he has not been on anticoagulation and has been in atrial flutter. No need to pursue MRI or carotid ultrasound today as CT has characterized lesion. Patient with subjective improvement in let hand weakness this morning. Patient with heart rates into 120-130 this morning. Will control heart rate with metoprolol. Will continue heparin drip and start anticoagulation with warfarin as this is ok with neuro. Will also assess valvular function with TTE. Patient appears euvolemic on exam today. Will hold diuresis with goal of neteven fluid balance today. # Acute systolic heart failure: -euvolemic on exam today -TTE -Goal of net even fluid balance today ?? # Cardioembolic stroke: -Continue heparin gtt -Aspirin 325 mg QD -Atorvastatin 80 mg QHS ?? # Atrial flutter with RVR -Rate control with metoprolol 12.5 mg BIG -IV metoprolol 5 mg prn -Continue heparin gtt -Start warfarin today # Hypertension: - awaiting patient to obtain list of home medications ?? # Other: -Diet: cardiac diet -DVT ppx: on heparin drip -GI ppx: none indicated ?? Dispo: pending course Dwayne Stanley MD PGY1, Internal Medicine Pager [phone] 08/31/2017 Associated attestation - Junito Apodaca MD - 08/31/2017 9:51 PM EDT Cardiology Attending Note I interviewed and examined the patient during comprehensive bedside rounds. I concur with the summary of interval events, active hospital-focused problem list and plan of care as described in the note below. I personally reviewed the medications, laboratory results, treatment decisions and updated thepatient. Please see my addendum to the H&P for my detailed assessment and plan for today. Junito Apodaca MD, FACP, FACC Section of Cardiovascular Medicine [facility] Bilingual Sales Representativeanti tank missileman [facility] This patient meets or has met medical criteria to require an inpatient level of care, i.e. a minimumof two midnights in the hospital with multiple complex problems. documented in this encounter H&P Notes Issac Felix - 08/30/2017 8:22 PM EDT Cardiovascular Admission H&P Active Hospital Problems Diagnosis ??? Acute systolic congestive heart failure ??? Atrial fibrillation ??? Cardiogenic pulmonary edema ??? Stroke Resolved Hospital Problems Diagnosis Date Resolved No resolved problems to display. Active Non-Hospital Problems Diagnosis ??? Hypertension ??? H/O mitral valve replacement with tissue graft ??? H/O aortic valve replacement with porcine valve Patient ID: Mr. Cong Khan is a 62 y/o man with a PMHx of systolic heart failure (EF 20%), atrialfibrillation (not on anticoagulation), mitral valve disease (s/p bioprosthetic valve replacement), and aortic valve disease (s/p bioprosthetic valve replacement) who was admitted for an acute systolic heart failure exacerbation. CC: shortness of breath HPI Mr. Cong Khan is a 62 y/o man with a PMHx of systolic heart failure (EF 20%), atrial fibrillation (not on anticoagulation), mitral valve disease (s/p bioprosthetic valve replacement), and aortic valve disease (s/p bioprosthetic valve replacement) who was admitted for an acute systolic heart failure exacerbation. He reports feeling progressively short of breath over the last four months mostly limited to exertion. Denies issues when lying flat and uses two pillows to sleep consistent with the last several years. He does report having a persistent dry cough during this same time interval. Denies leg swelling or paroxysmal nocturnal dyspnea. Last night he adds I could not sleep, the shortness of breath was even there when I was sitting still. His left hand also developed numbness and now he cannot form a fist or use it normally. Denies visual abnormalities or gait issues. No prior historyof stroke or similar issues. He went to [facility] this morning at 0400 where he was found to have an atrial fibrillation rhythm with tachycardic heart rates. He was started on a heparin drip foranticoagulation. A proBNP was elevated at 7100. Troponin was also elevated at 0.11 but there were noconcerning EKG findings or active chest pain. Cong was provided aspirin 324 mg and sublingual nitroglycerin. Chest x-ray was notable for cardiomegaly and right sided pleural effusion. An echocardiogram was notable for an estimated ejection fraction of 20-25% with diffuse wall hypokinesis and moderate aortic reguritation. Heart rates were controlled with a diltiazem drip later weaned off when oral metoprolol was administered. He was diuresed with furosemide achieving a urinary output of over 4.5 L.His shortness of breath improved and he was weaned to minimal nasal cannula oxygen requirements. Regarding his valve disease history, Cong has had his mitral valve repaired and eventually replaced (bioprosthetic) during several procedures dating back to 2009. His aortic valve was also apparentlyreplaced in 2013 also with a bioprosthetic valve. He belies his tricuspid valve was repaired at somepoint. Denies history of intravenous drug abuse and has no known history of endocarditis. His atrialfibrillation dates back many years but he says he has not been on warfarin for over three years. He says he has moved so many times that he has not followed up regularly with a doctor who can prescribe it. A Maze procedure was reportedly performed three years ago. Denies any worsening of baseline symptomatic palpitations recently. Review of Systems (positives in bold) General: chills, fatigue, fever or night sweats Eye: blurry vision, double vision, loss of vision or photophobia HENT: headaches, sore throat or vertigo Heme/Lymph: bleeding/bruising, blood clots, jaundice, pallor or swollen lymph nodes Resp: cough, hemoptysis, orthopnea, shortness of breath or wheezing Cardio: chest pain, dyspnea on exertion, edema, loss of consciousness, palpitations, paroxysmal nocturnal dyspnea Gastro: abdominal pain, blood in stools, constipation, diarrhea, heartburn, hematemesis, melena or nausea/vomiting : dysuria, hematuria or urinary frequency/urgency MSK: joint pain, joint stiffness, joint swelling, muscle pain or muscular weakness Neuro: dizziness, gait disturbance, impaired coordination/balance, memory loss, numbness/tingling, seizures, speech problems, tremors or visual changes Derm: lumps or rash PMH HTN CHF Atrial fibrillation Alcohol use disorder Mitral valve prolapse PSH Tricuspid valvuloplasty Mitral valve repair Mitral valve replacement (bioprosthetic) Aortic valve replacement (bioprosthetic) Gastric fundoplication Total hip arthroplasty Allergies: NKDA Medications (outpatient): Currently unsure what medications he is taking at home (3 total?) Family History Father: Brain aneurysm, HTN, alcohol use disorder Mother: COPD, HTN Brother: Heroin use disorder Brother: PTSD Social History [facility] 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 He is a former heavy user of alcohol but sober for over three years. He has never used any tobacco products. Prior illicit drug use includes cocaine but he has never used intravenous drugs and has been sober for over 20 years. Vital Signs Last value Range last 24 hrs Temperature Temp: 36.6 ??C (97.9 ??F) Temp: [36.6 ??C (97.9 ??F)] Heart rate Heart Rate: 90 Heart Rate: [84-90] Blood pressure BP: (!) 152/104 BP: (136-152)/(88-104) Respiratory rate Resp: 27 Resp: [18-27] SpO2 SpO2: 91 %* SpO2: [91 %-95 %] * room air Physical Exam Gen: NAD, resting comfortably in hospital bed with two pillows behind his head HEENT: sclera non-icteric, neck supple, no LAD CV: diastolic murmur heard best at RUSB, S1S2, RRR, 2+radial & posterior tibial, femoral and pedal pulses Pulm: CTAB, no wheezing, crackles or rhonchi Abd: soft, NT/ND, +BS Ext: no peripheral edema, no clubbing, no cyanosis Skin: warm and dry, no rash or petechiae Neuro: unable to make fist with left hand, no other deficits appreciated Labs (pertinent): CBC: pending K+: 3.4 Cr: 1.0 Mg2+: 0.80 Troponin: 0.01 ProBNP: 7600 TSH: 1.70 Cardiology/Vascular: 1) EKG: normal sinus rhythm, LVH 2) TTE: exam pending Imagin) CT head: acute right frontal lobe infarction, no evidence for hemorrhage 2) CXR: small right sided pleural effusion Microbiology: none pending Assessment/Plan Cong Duran presents for management of an acute systolic heart failure exacerbation. This seems to be in the setting of atrial fibrillation with rapid ventricular response (RVR); his symptoms improvedwith rate control and diuresis. There may be also a component of residual valvular regurgitation resulting in his symptoms given examination findings (aortic regurgitation?). Plan for echocardiogram tomorrow. There does not appear to be a need for continued diuresis at this time as he appears normovolemic on exam and his vitals are stable on room air. Additionally, his rates are controlled and appears to be in normal sinus rhythm. Will monitor for the development of atrial fibrillation w/ RVR and address rate control with calcium channel blockers if needed. His volume status and need for diuresis will also be monitored. His head CT has returned with evidence for an ischemic stroke involving the right frontal lobe. This is the most likely cause to explain his left hand complaints. Neurology has been consulted. Please see plan specifics below. # Acute systolic heart failure, in the setting of atrial fibrillation with RVR: - initiate furosemide if signs of volume overload - initiate diltiazem if signs of atrial fibrillation - follow-up TTE results - consider valve repair if indicated - continue heparin drip # Right sided stroke, likely embolic: - continue heparin drip - consult PT/OT/CHILDREN'S PROGRAM COORDINATOR - start high dose aspirin - start atorvastatin - follow-up carotid ultrasound results - follow-up CTA of habematolel of [place] - follow-up MRI brain - order lipid panel - order HbA1c # Hypertension: - figure out home medication regimen # Other: -Diet: cardiac diet -DVT ppx: on heparin drip -GI ppx: none indicated Dispo: pending course Code Status: DNR/DNI Issac Felix MD PGY2, Internal Medicine Pager [phone] 08/30/2017 Associated attestation - Junito Apodaca MD - 08/31/2017 9:49 PM EDT Cardiology Attending Note I interviewed and examined the patient during comprehensive bedside rounds. I concur with the summary of interval events, active hospital-focused problem list and plan of care as described in the note below. I personally reviewed the medications, laboratory results, treatment decisions and updated thepatient. This is a very interesting 60-year-old gentleman with a complicated past cardiovascular history including HFrEF (LVEF-20%), atrial fibrillation (not on anticoagulation), mitral valve prolapse status post repair (2009, [facility] in [facility]) then replacement ??2 (2010 in [place], [id number](?) at [facility] in [place]). He also has a bioprosthetic aortic valve replacement and has undergone tricuspid annuloplasty. Unfortunately, this patient has lived in a variety of places and is never received his care at our facility. Thus, we do not have much information regarding his complex past medical history. Regarding his current admission, he sought care at a local hospital for left hand numbness and weakness. He was also noted to be in atrial fibrillation with rapid ventricular response and evidence of heart failure. His proBNP was markedly elevated at approximately 7000 and he had a mildly positive troponin. Echocardiogram apparently demonstrated severely reduced LVEF at approximately 20% with diffusehypokinesis noted. He was treated with IV diltiazem and oral metoprolol for rate control and received IV furosemide for diuresis. CT scan of his head demonstrated a right frontal stroke that is most likely cardioembolic in origin given his prosthetic mitral valve in the setting of atrial fibrillation and a cardiomyopathy not on oral anticoagulation. We will involve our neurology service for further guidance regarding the risks/benefits of oral anticoagulation in the context of an acute stroke given the risk of hemorrhagic conversion and make a decision about how to proceed with antiplatelet therapies and heparin. For now, he remains on aspirin and a heparin infusion. The patient reports that he had discontinued Coumadin a while back after he had a spontaneous bleed into his right leg in the context of a supratherapeutic INR. In terms of his cardiac issues, we will continue to pursue rate control with AV marilin blocking medicines and will diurese him with IV furosemide. We will also check an echocardiogram to reevaluate his left ventricular and valvular function. Junito Apodaca MD, FACP, FACC Section of Cardiovascular Medicine [facility] Bilingual Sales Representativeanti tank missileman [facility] This patient meets or has met medical criteria to require an inpatient level of care, i.e. a minimumof two midnights in the hospital with multiple complex problems. documented in this encounter Miscellaneous Notes Plan of Care - Kellie Paul RN - 09/08/2017 1:59 AM EDT Problem: Patient Care Overview Goal: Plan of Care Review Outcome: Ongoing (Interventions Implemented as Appropriate) OUTCOME EVALUATION NOTE: OUTCOME SUMMARY: Denied pain or SOB. VSS. Afib/flutter rate controlled on tele. Slept well. Uneventful night. PLAN MOVING FORWARD: Monitor labs Anticipate discharge today INDIVIDUALIZED FALL PREVENTION INTERVENTIONS: Patient-specific fall risk factors per assessment: [current deficits]: Low ef Assistance [level of assistance required for transfers and ambulation]: independent Supervision [direct monitoring required during toileting and ADLs]: independent Surveillance [continuous indirect monitoring]: Tele, call wayne, purposeful rounding Patient-specific fall prevention interventions for sensory deficits provided, if applicable: Maintain safe environment CPG GOAL OUTCOME EVALUATION: ongoing Plan of Care - Dinora Lamas RN - 09/06/2017 3:12 PM EDT Problem: Patient Care Overview Goal: Plan of Care Review Outcome: Ongoing (Interventions Implemented as Appropriate) 09/06/17 0550 09/06/17 0838 Plan of Care Review Progress progress toward functional goals as expected -- Coping/Psychosocial Plan Of Care Reviewed With -- patient OUTCOME EVALUATION NOTE: OUTCOME SUMMARY: Uneventful day. Up ambulating in the hallway. Started on robitussin. PLAN MOVING FORWARD: Discharge tomorrow INDIVIDUALIZED FALL PREVENTION INTERVENTIONS: Patient-specific fall risk factors per assessment: tele wires Assistance [level of assistance required for transfers and ambulation]: independent Supervision [direct monitoring required during toileting and ADLs]:call wayne within reach Surveillance [continuous indirect monitoring]: Hourly rounds Patient-specific fall prevention interventions for sensory deficits provided, if applicable: CPG GOAL OUTCOME EVALUATION: Goal: Fall Prevention-Safe Patient Handling Outcome: Ongoing (Interventions Implemented as Appropriate) 09/03/17 1859 09/06/17 0421 09/06/17 0838 Daily Care Interventions Self-Care Promotion -- -- independence encouraged;BADL personal objects within reach Musculoskeletal Interventions Muscle Strengthening -- activity/mobility promoted;mobility in bed promoted -- Activity and Safety Assistive Device None -- -- Positioning Body Position -- -- independent Restraint Interventions Safety Promotion/Fall Prevention -- -- fall prevention program maintained;nonskid shoes/slippers when out of bed;muscle strengthening facilitated Nunes Fall Risk History of Falling -- -- 0 Secondary Diagnosis -- -- 15 Ambulatory Aids -- -- 15 Intravenous Therapy/Heparin/Saline Lock -- -- 20 Gait/Transferring -- -- 0 Mental Status -- -- 0 Score -- -- 50 OTHER Nunes Fall Risk -- -- High Goal: Infection Control Outcome: Ongoing (Interventions Implemented as Appropriate) 09/06/17 0838 Coping Strategies Supportive Measures active listening utilized;positive reinforcement provided;self-care encouraged;verbalization of feelings encouraged;relaxation techniques promoted Safety Interventions Isolation Precautions standard precautions maintained Infection Prevention rest/sleep promoted;environmental surveillance performed Plan of Care - Isa Dickens OTA - 09/06/2017 2:01 PM EDT Problem: Patient Care Overview Goal: Plan of Care Review Outcome: Ongoing (Interventions Implemented as Appropriate) 09/06/17 0838 09/06/17 1543 Plan of Care Review Progress -- progress toward functional goals as expected Coping/Psychosocial Plan Of Care Reviewed With patient -- Occupational Therapy Treatment Note Treatment Number: 3 Pertinent History of Current Problem: Pt seen today for skilled occupational therapy interventions. Session focused on increasing endurance and activity tolerance to promote self-care health maintenance and increase functional independence. Precautions/Restrictions: fall, cardiac Precautions Comments: L UE weakness; new CVA; Heparin drip Assessment:Pt seen today for skilled occupational therapy interventions. Session focused on increasing endurance and activity tolerance to promote self-care health maintenance and increase functional independence. Pt able to mobilize in hallway with use of straight cane and SBA. Pt reports that he hasbeen actively working daily on prescribed hand exercises and demonstrated ability to preform them with occasional cues for technique. Pt has met nearly all of his OT goals. Based on progress pt can likely return home with assist/home OT once medically ready for dc. Pt will benefit from ongoing therapeutic interventions to achieve pt's and therapy goals. Please refer to associated flowsheet data for treatment session details. Therapy Frequency: 1-3 more visits Anticipated Equipment Needs at Discharge: standard cane Anticipated Discharge Disposition: home with assist, home OT Pager: [phone] WILBUR Richards 09/06/2017 Occupational Therapy Rehabilitation Department Problem: Acute Rehab Services Goal & Intervention Plan Goal: Grooming Goal Stand Alone Therapy Goal Outcome: Ongoing (Interventions Implemented as Appropriate) 08/31/17 15509/01/17 1610 Grooming Goal Grooming Goal, Date Established 08/31/17 -- Grooming Goal, Time to Achieve 1 wk -- Grooming Goal, Activity Type Pt will be able to tolerate standing to carry out grooming tasks at sink level, using B UEs to perform task independently. -- Grooming Goal, Outcome -- goal met Goal: Home Management Goal Stand Alone Therapy Goal Outcome: Ongoing (Interventions Implemented as Appropriate) 08/31/17 15509/06/17 1543 Home Management Goal Home Mgmt Goal, Date Established 08/31/17 -- Home Mgmt Goal, Time To Achieve 1 wk -- Home Mgmt Goal, Activity Type Pt will be able to obtain his own snack and drink from kitchen independently. -- Home Mgmt Goal, Outcome Achieved -- goal ongoing Goal: LB Dressing Goal Stand Alone Therapy Goal Outcome: Ongoing (Interventions Implemented as Appropriate) 08/31/17 15509/06/17 1543 LB Dressing Goal LB Dressing Goal, Date Established 08/31/17 -- LB Dressing Goal, Time to Achieve 1 wk -- LB Dressing Goal, Activity Type Pt will be able to dress LB modified independent; sitting/standing. -- LB Dressing Goal, Outcome -- goal partially met Goal: Occupational Therapy Goal Stand Alone Therapy Goal Outcome: Ongoing (Interventions Implemented as Appropriate) 08/31/17 15509/06/17 1543 Occupational Therapy Goal OT Goal, Date Established 08/31/17 -- OT Goal, Time to Achieve 1 wk -- OT Goal, Activity Type Pt will tolerate 10 minutes of daily fine motor exercises in order to increase dexterity and performance in ADLs/IADLs. -- OT Goal, Outcome -- goal partially met Plan of Care - Kellie Paul RN - 09/06/2017 5:53 AM EDT Problem: Patient Care Overview Goal: Plan of Care Review Outcome: Ongoing (Interventions Implemented as Appropriate) 09/06/17 0550 Plan of Care Review Progress progress toward functional goals as expected Coping/Psychosocial Plan Of Care Reviewed With patient OUTCOME EVALUATION NOTE: OUTCOME SUMMARY: Pt had an uneventful night. Denied pain or SOB. VSS. Afib, rate controlled on tele. PLAN MOVING FORWARD: Rate control Lovenox bridge INDIVIDUALIZED FALL PREVENTION INTERVENTIONS: Patient-specific fall risk factors per assessment: [current deficits]: Low ef Assistance [level of assistance required for transfers and ambulation]: independent Supervision [direct monitoring required during toileting and ADLs]: Independent Surveillance [continuous indirect monitoring]: Tele, pulse ox, call wayne, purposeful rounding Patient-specific fall prevention interventions for sensory deficits provided, if applicable: Maintain safe environment CPG GOAL OUTCOME EVALUATION: ongoing Plan of Care - Dinora Laams RN - 09/05/2017 1:44 PM EDT Problem: Patient Care Overview Goal: Plan of Care Review Outcome: Ongoing (Interventions Implemented as Appropriate) 09/03/17185809/05/17902 Plan of Care Review Progress progress toward functional goals as expected -- Coping/Psychosocial Plan Of Care Reviewed With -- patient OUTCOME EVALUATION NOTE: OUTCOME SUMMARY: Up ambulating in hallway. Started on torsemide PO. Still bothered by a persistent dry non productive cough. PLAN MOVING FORWARD: Monitor I&O's / lovenox teaching INDIVIDUALIZED FALL PREVENTION INTERVENTIONS: Patient-specific fall risk factors per assessment: [current deficits]: Tele tubing Assistance [level of assistance required for transfers and ambulation]: independent/SBA Supervision [direct monitoring required during toileting and ADLs]: call wayne within reach Surveillance [continuous indirect monitoring]:hourly rounds Goal: Fall Prevention-Safe Patient Handling Outcome: Ongoing (Interventions Implemented as Appropriate) 09/03/17185809/03/17199909/05/17 0903 Daily Care Interventions Self-Care Promotion -- independence encouraged;BADL personal objects within reach -- Musculoskeletal Interventions Muscle Strengthening activity/mobility promoted -- -- Activity and Safety Assistive Device None -- -- Nunes Fall Risk History of Falling -- -- 0 Secondary Diagnosis -- -- 15 Ambulatory Aids -- -- 15 Intravenous Therapy/Heparin/Saline Lock -- -- 20 Gait/Transferring -- -- 0 Mental Status -- -- 0 Score -- -- 50 OTHER Nunes Fall Risk -- -- High Restraint Interventions Safety Promotion/Fall Prevention -- -- activity supervised;fall prevention program maintained;nonskid shoes/slippers when out of bed Positioning Body Position -- -- independent;with 2-person assist Plan of Care - Evelyne Carrero RN - 09/05/2017 4:28 AM EDT Problem: Patient Care Overview Goal: Plan of Care Review Outcome: Ongoing (Interventions Implemented as Appropriate) 09/03/17185809/04/171999 Plan of Care Review Progress progress toward functional goals as expected -- Coping/Psychosocial Plan Of Care Reviewed With -- patient OUTCOME EVALUATION NOTE: OUTCOME SUMMARY: A+O. Q4 neuro checks benign. A flutter on tele w/ LBBB, HR nonsustained up to 130s, asymptomatic, will continue monitoring. Pt denies CP/SOB throughout shift. Pt slept well between care. PLAN MOVING FORWARD: Bridge coumadin to lovenox, diurese INDIVIDUALIZED FALL PREVENTION INTERVENTIONS: Patient-specific fall risk factors per assessment: [current deficits]: IV, tele wires Assistance [level of assistance required for transfers and ambulation]: ind. Supervision [direct monitoring required during toileting and ADLs]: ind. Surveillance [continuous indirect monitoring]: telemetry, pulse oximetry, purposeful rounding Patient-specific fall prevention interventions for sensory deficits provided, if applicable: call wayne in reach, urinal @ bedside, clutter free environment maintained CPG GOAL OUTCOME EVALUATION: ongoing Goal: Individualization & Mutuality Outcome: Ongoing (Interventions Implemented as Appropriate) 09/01/17 1500 Mutuality/Individual Preferences What Anxieties, Fears or Concerns Do You Have About Your Health or Care? None What Questions Do You Have About Your Health or Care? None What Information Would Help Us Give You More Personalized Care? None Goal: Fall Prevention-Safe Patient Handling Outcome: Ongoing (Interventions Implemented as Appropriate) 10/14/17 1859 09/03/17199909/04/171999 Daily Care Interventions Self-Care Promotion -- independence encouraged;BADL personal objects within reach -- Musculoskeletal Interventions Muscle Strengthening activity/mobility promoted -- -- Activity and Safety Assistive Device None -- -- Nunes Fall Risk History of Falling -- -- 0 Secondary Diagnosis -- -- 15 Ambulatory Aids -- -- 15 Intravenous Therapy/Heparin/Saline Lock -- -- 20 Gait/Transferring -- -- 10 Mental Status -- -- 0 Score -- -- 60 OTHER Nunes Fall Risk -- -- High Restraint Interventions Safety Promotion/Fall Prevention -- -- activity supervised;fall prevention program maintained;nonskid shoes/slippers when out of bed;muscle strengthening facilitated;safety round/check completed Positioning Body Position -- -- independent Goal: Infection Control Outcome: Ongoing (Interventions Implemented as Appropriate) 09/04/171999 Coping Strategies Supportive Measures active listening utilized;counseling provided;decision- making supported;goal setting facilitated;positive reinforcement provided;problem solving facilitated;self-care encouraged;self-reflection promoted;verbalization of feelings encouraged;self-responsibility promoted;relaxation techniques promoted Safety Interventions Isolation Precautions standard precautions maintained Infection Prevention rest/sleep promoted Problem: Cardiac: Heart Failure (Adult) Goal: Signs and Symptoms of Listed Potential Problems Will be Absent, Minimized or Managed (Cardiac:Heart Failure) Signs and symptoms of listed potential problems will be absent, minimized or managed by discharge/transition of care (reference Cardiac: Heart Failure (Adult) CPG). Outcome: Ongoing (Interventions Implemented as Appropriate) 09/02/171999 Cardiac: Heart Failure Problems Assessed (Heart Failure) all Problems Present (Heart Failure) dysrhythmia/arrhythmia;cardiac pump dysfunction;situational response;fluid/electrolyte imbalance Problem: Stroke (Ischemic) (Adult) Goal: Signs and Symptoms of Listed Potential Problems Will be Absent, Minimized or Managed (Stroke) Signs and symptoms of listed potential problems will be absent, minimized or managed by discharge/transition of care (reference Stroke (Ischemic) (Adult) CPG). Outcome: Ongoing (Interventions Implemented as Appropriate) 09/02/171999 Stroke (Ischemic) Problems Assessed (Stroke (Ischemic)/TIA) all Problems Present (Stroke (Ischemic)/TIA) muscle tone abnormal Plan of Care - Dinora Lamas RN - 09/04/2017 6:33 PM EDT Problem: Patient Care Overview Goal: Plan of Care Review Outcome: Ongoing (Interventions Implemented as Appropriate) 09/03/17185809/04/17 09 Plan of Care Review Progress progress toward functional goals as expected -- Coping/Psychosocial Plan Of Care Reviewed With -- patient OUTCOME EVALUATION NOTE: OUTCOME SUMMARY:Frequent dry non-productive cough continues. Pt. Is using oxygen at 1L PRN- when lying down- feels as though he can't catch his breath. Heparin gtt d/cd- started on lovenox. PLAN MOVING FORWARD: Monitor INR levels. Accurate I&Os. Cardiac rehab/dietary consults INDIVIDUALIZED FALL PREVENTION INTERVENTIONS: Patient-specific fall risk factors per assessment: [current deficits]: Monitoring system Assistance [level of assistance required for transfers and ambulation]: SBA Supervision [direct monitoring required during toileting and ADLs]: Call wayne within reach Surveillance [continuous indirect monitoring]: hourly rounds Patient-specific fall prevention interventions for sensory deficits provided, if applicable: CPG GOAL OUTCOME EVALUATION: Goal: Fall Prevention-Safe Patient Handling Outcome: Ongoing (Interventions Implemented as Appropriate) 09/03/17185809/03/17199909/04/17 09 Daily Care Interventions Self-Care Promotion -- independence encouraged;BADL personal objects within reach -- Musculoskeletal Interventions Muscle Strengthening activity/mobility promoted -- -- Activity and Safety Assistive Device None -- -- Nunes Fall Risk History of Falling -- -- 0 Secondary Diagnosis -- -- 15 Ambulatory Aids -- -- 15 Intravenous Therapy/Heparin/Saline Lock -- -- 20 Gait/Transferring -- -- 10 Mental Status -- -- 0 Score -- -- 60 OTHER Nunes Fall Risk -- High -- Restraint Interventions Safety Promotion/Fall Prevention -- -- activity supervised;fall prevention program maintained;nonskid shoes/slippers when out of bed;safety round/check completed Positioning Body Position -- independent -- Goal: Discharge Needs Assessment Outcome: Ongoing (Interventions Implemented as Appropriate) 08/31/1721209/02/17 1805 Discharge Needs Assessment Concerns To Be Addressed denies needs/concerns at this time -- Readmission Within The Last 30 Days no previous admission in last 30 days -- Equipment Needed After Discharge -- none Discharge Disposition -- still a patient Current Health Outpatient/Agency/Support Group Needs -- [facility]/spiritual community (specify) Anticipated Changes Related to Illness -- none Activity/Self Care Review of Systems Equipment Currently Used at Home -- none Living Environment Transportation Available -- family or friend will provide Problem: Cardiac: Heart Failure (Adult) Goal: Signs and Symptoms of Listed Potential Problems Will be Absent, Minimized or Managed (Cardiac:Heart Failure) Signs and symptoms of listed potential problems will be absent, minimized or managed by discharge/transition of care (reference Cardiac: Heart Failure (Adult) CPG). Outcome: Ongoing (Interventions Implemented as Appropriate) 09/02/171999 Cardiac: Heart Failure Problems Assessed (Heart Failure) all Problems Present (Heart Failure) dysrhythmia/arrhythmia;cardiac pump dysfunction;situational response;fluid/electrolyte imbalance Plan of Care - Evelyne Carrero RN - 09/04/2017 3:35 AM EDT Problem: Patient Care Overview Goal: Plan of Care Review Outcome: Ongoing (Interventions Implemented as Appropriate) 09/03/17 1859 09/03/171999 Plan of Care Review Progress progress toward functional goals as expected -- Coping/Psychosocial Plan Of Care Reviewed With -- patient OUTCOME EVALUATION NOTE: OUTCOME SUMMARY: A+O, left hand muscle tone mildly decreased @ baseline, Q4 neuro checks benign. VSS. A. Fib/A. Flutter on tele w/ LBBB. Pt denies CP/SOB throughout shift. Heparin gtt maintained per protocol. Pt slept well between care. PLAN MOVING FORWARD: Bridge coumadin to heparin, possible stress test?, d/c planning INDIVIDUALIZED FALL PREVENTION INTERVENTIONS: Patient-specific fall risk factors per assessment: [current deficits]: IV, tele wires Assistance [level of assistance required for transfers and ambulation]: SBA Supervision [direct monitoring required during toileting and ADLs]: ambulation and transfers Surveillance [continuous indirect monitoring]: telemetry, pulse oximetry, purposeful rounding Patient-specific fall prevention interventions for sensory deficits provided, if applicable: call wayne in reach, urinal @ bedside CPG GOAL OUTCOME EVALUATION: ongoing Goal: Fall Prevention-Safe Patient Handling Outcome: Ongoing (Interventions Implemented as Appropriate) 09/03/17 1859 09/03/171999 Daily Care Interventions Self-Care Promotion -- independence encouraged;BADL personal objects within reach Musculoskeletal Interventions Muscle Strengthening activity/mobility promoted -- Activity and Safety Assistive Device None -- Nunes Fall Risk History of Falling -- 0 Secondary Diagnosis -- 15 Ambulatory Aids -- 15 Intravenous Therapy/Heparin/Saline Lock -- 20 Gait/Transferring -- 10 Mental Status -- 0 Score -- 60 OTHER Nunes Fall Risk -- High Restraint Interventions Safety Promotion/Fall Prevention -- activity supervised;fall prevention program maintained;safety round/check completed;nonskid shoes/slippers when out of bed;muscle strengthening facilitated Positioning Body Position -- independent Goal: Infection Control Outcome: Ongoing (Interventions Implemented as Appropriate) 09/03/171999 Coping Strategies Supportive Measures active listening utilized;counseling provided;decision- making supported;goal setting facilitated;positive reinforcement provided;relaxation techniques promoted;verbalization of feelings encouraged;problem solving facilitated Safety Interventions Isolation Precautions standard precautions maintained Infection Prevention rest/sleep promoted Problem: Cardiac: Heart Failure (Adult) Goal: Signs and Symptoms of Listed Potential Problems Will be Absent, Minimized or Managed (Cardiac:Heart Failure) Signs and symptoms of listed potential problems will be absent, minimized or managed by discharge/transition of care (reference Cardiac: Heart Failure (Adult) CPG). Outcome: Ongoing (Interventions Implemented as Appropriate) 09/02/171999 Cardiac: Heart Failure Problems Assessed (Heart Failure) all Problems Present (Heart Failure) dysrhythmia/arrhythmia;cardiac pump dysfunction;situational response;fluid/electrolyte imbalance Problem: Stroke (Ischemic) (Adult) Goal: Signs and Symptoms of Listed Potential Problems Will be Absent, Minimized or Managed (Stroke) Signs and symptoms of listed potential problems will be absent, minimized or managed by discharge/transition of care (reference Stroke (Ischemic) (Adult) CPG). Outcome: Ongoing (Interventions Implemented as Appropriate) 09/02/171999 Stroke (Ischemic) Problems Assessed (Stroke (Ischemic)/TIA) all Problems Present (Stroke (Ischemic)/TIA) muscle tone abnormal Plan of Care - Taryn López RN - 09/03/2017 7:04 PM EDT Problem: Patient Care Overview Goal: Plan of Care Review Outcome: Ongoing (Interventions Implemented as Appropriate) 09/03/171858 Plan of Care Review Progress progress toward functional goals as expected Coping/Psychosocial Plan Of Care Reviewed With patient OUTCOME EVALUATION NOTE: OUTCOME SUMMARY: Pt a/o, LUE weakness notes, vss on ra, denies pain and sob, pt continues to have freq dry cough states cough drops are most effective. Pt given IV metop x1 for sustained hr of 130s with good effect. Ptambulated in halls x1 hr 80-110. No other complaints will continue to monitor. PLAN MOVING FORWARD: Hep to coumadin bridge, monitor hr, continue to diureses INDIVIDUALIZED FALL PREVENTION INTERVENTIONS: Patient-specific fall risk factors per assessment: [current deficits]: IV, lines, generalized weakness Assistance [level of assistance required for transfers and ambulation]: Cane and sba Supervision [direct monitoring required during toileting and ADLs]: Ind, call wayne in reach Surveillance [continuous indirect monitoring]: Tele, O2 Patient-specific fall prevention interventions for sensory deficits provided, if applicable: [X] N/A CPG GOAL OUTCOME EVALUATION: ongoing Goal: Fall Prevention-Safe Patient Handling Outcome: Ongoing (Interventions Implemented as Appropriate) 09/03/17 0804 09/03/17 1142 09/03/171858 Daily Care Interventions Self-Care Promotion independence encouraged;BADL personal objects within reach -- -- Musculoskeletal Interventions Muscle Strengthening -- -- activity/mobility promoted Activity and Safety Assistive Device -- -- None Nunes Fall Risk History of Falling 0 -- -- Secondary Diagnosis 15 -- -- Ambulatory Aids 15 -- -- Intravenous Therapy/Heparin/Saline Lock 20 -- -- Gait/Transferring 10 -- -- Mental Status 0 -- -- Score 60 -- -- OTHER Nunes Fall Risk High -- -- Restraint Interventions Safety Promotion/Fall Prevention -- safety round/check completed -- Positioning Body Position supine, head elevated;independent -- -- Goal: Infection Control Outcome: Ongoing (Interventions Implemented as Appropriate) 09/03/17803 Coping Strategies Supportive Measures active listening utilized;decision-making supported;positive reinforcement provided Safety Interventions Isolation Precautions standard precautions maintained Infection Prevention environmental surveillance performed Plan of Care - Evelyne Carrero RN - 09/03/2017 4:20 AM EDT Problem: Patient Care Overview Goal: Plan of Care Review Outcome: Ongoing (Interventions Implemented as Appropriate) 09/01/17 1633 09/02/171999 Plan of Care Review Progress progress toward functional goals as expected -- Coping/Psychosocial Plan Of Care Reviewed With -- patient OUTCOME EVALUATION NOTE: OUTCOME SUMMARY: A+O. A. Fib/A. Flutter on tele w/ occ to freq PVCs. Pt denies CP/SOB throughout shift. Heparin gtt maintained per protocol. Pt slept well between care. PLAN MOVING FORWARD: Q4h neuro checks, bridge coumadin to heparin INDIVIDUALIZED FALL PREVENTION INTERVENTIONS: Patient-specific fall risk factors per assessment: [current deficits]: IV, tele wires, prior stroke Assistance [level of assistance required for transfers and ambulation]: SBA Supervision [direct monitoring required during toileting and ADLs]: ambulation and transfers Surveillance [continuous indirect monitoring]: telemetry, pulse oximetry, purposeful rounding Patient-specific fall prevention interventions for sensory deficits provided, if applicable: call wayne in reach, urinal in reach CPG GOAL OUTCOME EVALUATION: ongoing Goal: Fall Prevention-Safe Patient Handling Outcome: Ongoing (Interventions Implemented as Appropriate) 09/01/17 1632 09/02/171999 Daily Care Interventions Self-Care Promotion -- BADL personal objects within reach;independence encouraged Musculoskeletal Interventions Muscle Strengthening activity/mobility promoted -- Activity and Safety Assistive Device None -- Nunes Fall Risk History of Falling -- 0 Secondary Diagnosis -- 15 Ambulatory Aids -- 15 Intravenous Therapy/Heparin/Saline Lock -- 20 Gait/Transferring -- 10 Mental Status -- 0 Score -- 60 OTHER Nunes Fall Risk -- High Restraint Interventions Safety Promotion/Fall Prevention -- activity supervised;fall prevention program maintained;nonskid shoes/slippers when out of bed;muscle strengthening facilitated;safety round/check completed Positioning Body Position -- independent Goal: Infection Control Outcome: Ongoing (Interventions Implemented as Appropriate) 09/02/171999 Coping Strategies Supportive Measures active listening utilized;counseling provided;decision- making supported;goal setting facilitated;positive reinforcement provided;problem solving facilitated;relaxation techniques promoted;self- responsibility promoted;verbalization of feelings encouraged;self-reflection promoted;self-care encouraged Safety Interventions Isolation Precautions standard precautions maintained Infection Prevention rest/sleep promoted Problem: Cardiac: Heart Failure (Adult) Goal: Signs and Symptoms of Listed Potential Problems Will be Absent, Minimized or Managed (Cardiac:Heart Failure) Signs and symptoms of listed potential problems will be absent, minimized or managed by discharge/transition of care (reference Cardiac: Heart Failure (Adult) CPG). Outcome: Ongoing (Interventions Implemented as Appropriate) 09/02/171999 Cardiac: Heart Failure Problems Assessed (Heart Failure) all Problems Present (Heart Failure) dysrhythmia/arrhythmia;cardiac pump dysfunction;situational response;fluid/electrolyte imbalance Problem: Stroke (Ischemic) (Adult) Goal: Signs and Symptoms of Listed Potential Problems Will be Absent, Minimized or Managed (Stroke) Signs and symptoms of listed potential problems will be absent, minimized or managed by discharge/transition of care (reference Stroke (Ischemic) (Adult) CPG). Outcome: Ongoing (Interventions Implemented as Appropriate) 09/02/171999 Stroke (Ischemic) Problems Assessed (Stroke (Ischemic)/TIA) all Problems Present (Stroke (Ischemic)/TIA) muscle tone abnormal Plan of Care - Shakira Mayberry RN - 09/02/2017 6:20 PM EDT Problem: Patient Care Overview Goal: Plan of Care Review 09/01/17 1633 09/01/17 2100 Plan of Care Review Progress progress toward functional goals as expected -- Coping/Psychosocial Plan Of Care Reviewed With -- patient OUTCOME EVALUATION NOTE: OUTCOME SUMMARY: A&Ox4, c/o pain in right rib, patient feels like it is from incessant coughing. Heparin gtt continued to infuse. Left UE weakness noted. Neuro assessments benign. Ambulatory in room with SBA. Warfarin teaching done PLAN MOVING FORWARD: Heparin to coumadin bridge. INDIVIDUALIZED FALL PREVENTION INTERVENTIONS: Patient-specific fall risk factors per assessment: [current deficits]: Unfamiliar environment, generalized weakness Assistance [level of assistance required for transfers and ambulation]: SBA Supervision [direct monitoring required during toileting and ADLs]: SBA Surveillance [continuous indirect monitoring]: Ttelemetry, pulse oximetry, hourly rounding Patient-specific fall prevention interventions for sensory deficits provided, if applicable: [X] No CPG GOAL OUTCOME EVALUATION: Goal: Fall Prevention-Safe Patient Handling 09/01/17 1632 09/01/17 2100 09/02/17 08 Daily Care Interventions Self-Care Promotion -- independence encouraged;BADL personal objects within reach -- Musculoskeletal Interventions Muscle Strengthening activity/mobility promoted -- -- Activity and Safety Assistive Device None -- -- Nunes Fall Risk History of Falling -- -- 0 Secondary Diagnosis -- -- 15 Ambulatory Aids -- -- 15 Intravenous Therapy/Heparin/Saline Lock -- -- 20 Gait/Transferring -- -- 10 Mental Status -- -- 0 Score -- -- 60 OTHER Nunes Fall Risk -- -- High Restraint Interventions Safety Promotion/Fall Prevention -- -- nonskid shoes/slippers when out of bed;safety round/check completed;muscle strengthening facilitated Positioning Body Position -- -- independent Goal: Infection Control 09/02/17 0809/02/171804 Coping Strategies Supportive Measures -- active listening utilized Safety Interventions Isolation Precautions standard precautions maintained -- Infection Prevention barrier precautions utilized -- Goal: Discharge Needs Assessment 08/31/17 0213 09/02/171804 Discharge Needs Assessment Concerns To Be Addressed denies needs/concerns at this time -- Readmission Within The Last 30 Days no previous admission in last 30 days -- Equipment Needed After Discharge -- none Discharge Disposition -- still a patient Current Health Outpatient/Agency/Support Group Needs -- [facility]/spiritual community (specify) Anticipated Changes Related to Illness -- none Activity/Self Care Review of Systems Equipment Currently Used at Home -- none Living Environment Transportation Available -- family or friend will provide Goal: Interdisciplinary Rounds/Family Conf 09/01/171631 Interdisciplinary Rounds/Family Conf Participants nursing;patient;pharmacy;physician Problem: Cardiac: Heart Failure (Adult) Goal: Signs and Symptoms of Listed Potential Problems Will be Absent, Minimized or Managed (Cardiac:Heart Failure) Signs and symptoms of listed potential problems will be absent, minimized or managed by discharge/transition of care (reference Cardiac: Heart Failure (Adult) CPG). 09/02/171804 Cardiac: Heart Failure Problems Assessed (Heart Failure) all Problems Present (Heart Failure) dysrhythmia/arrhythmia;cardiac pump dysfunction;fluid/electrolyte imbalance Plan of Care - Evelyne Carrero RN - 09/02/2017 3:48 AM EDT Problem: Patient Care Overview Goal: Plan of Care Review Outcome: Ongoing (Interventions Implemented as Appropriate) 09/01/17 1633 09/01/17 2100 Plan of Care Review Progress progress toward functional goals as expected -- Coping/Psychosocial Plan Of Care Reviewed With -- patient OUTCOME EVALUATION NOTE: OUTCOME SUMMARY: A+O. A. Fib/ A. Flutter on tele. Pt denies CP/SOB throughout shift. Heparin gtt maintained per protocol. One time dose of IV lasix given for low urine output w/ good effect, will continue monitoring. Pt slept well between care. PLAN MOVING FORWARD: Q4 neuro checks, NPO for JOJO/cardioversion, possible stress test INDIVIDUALIZED FALL PREVENTION INTERVENTIONS: Patient-specific fall risk factors per assessment: [current deficits]: IV, tele wires, recent stroke Assistance [level of assistance required for transfers and ambulation]: SBA Supervision [direct monitoring required during toileting and ADLs]: ambulation and transfers Surveillance [continuous indirect monitoring]: telemetry, pulse oximetry, purposeful rounding Patient-specific fall prevention interventions for sensory deficits provided, if applicable: call wayne in reach, urinal @ bedside, supervised activity CPG GOAL OUTCOME EVALUATION: ongoing Goal: Individualization & Mutuality Outcome: Ongoing (Interventions Implemented as Appropriate) 09/01/17 1500 Mutuality/Individual Preferences What Anxieties, Fears or Concerns Do You Have About Your Health or Care? None What Questions Do You Have About Your Health or Care? None What Information Would Help Us Give You More Personalized Care? None Goal: Fall Prevention-Safe Patient Handling Outcome: Ongoing (Interventions Implemented as Appropriate) 09/01/17 1632 09/01/17 2100 Daily Care Interventions Self-Care Promotion -- independence encouraged;BADL personal objects within reach Musculoskeletal Interventions Muscle Strengthening activity/mobility promoted -- Activity and Safety Assistive Device None -- Nunes Fall Risk History of Falling -- 0 Secondary Diagnosis -- 15 Ambulatory Aids -- 15 Intravenous Therapy/Heparin/Saline Lock -- 20 Gait/Transferring -- 0 Mental Status -- 0 Score -- 50 OTHER Nunes Fall Risk -- High Restraint Interventions Safety Promotion/Fall Prevention -- activity supervised;fall prevention program maintained;safety round/check completed;nonskid shoes/slippers when out of bed;muscle strengthening facilitated Positioning Body Position -- independent Goal: Infection Control Outcome: Ongoing (Interventions Implemented as Appropriate) 09/01/172099 Safety Interventions Isolation Precautions standard precautions maintained Infection Prevention rest/sleep promoted Coping Strategies Supportive Measures decision-making supported;counseling provided;active listening utilized;goal setting facilitated;relaxation techniques promoted;problem solving facilitated;positive reinforcement pro vided;verbalization of feelings encouraged;self-responsibility promoted;self- reflection promoted;self-care encouraged Problem: Cardiac: Heart Failure (Adult) Goal: Signs and Symptoms of Listed Potential Problems Will be Absent, Minimized or Managed (Cardiac:Heart Failure) Signs and symptoms of listed potential problems will be absent, minimized or managed by discharge/transition of care (reference Cardiac: Heart Failure (Adult) CPG). Outcome: Ongoing (Interventions Implemented as Appropriate) 09/01/172099 Cardiac: Heart Failure Problems Assessed (Heart Failure) all Problems Present (Heart Failure) cardiac pump dysfunction;fluid/electrolyte imbalance;functional decline/self-care deficit;situational response;dysrhythmia/arrhythmia Problem: Stroke (Ischemic) (Adult) Goal: Signs and Symptoms of Listed Potential Problems Will be Absent, Minimized or Managed (Stroke) Signs and symptoms of listed potential problems will be absent, minimized or managed by discharge/transition of care (reference Stroke (Ischemic) (Adult) CPG). Outcome: Ongoing (Interventions Implemented as Appropriate) 09/01/172099 Stroke (Ischemic) Problems Assessed (Stroke (Ischemic)/TIA) all Problems Present (Stroke (Ischemic)/TIA) muscle tone abnormal;motor/sensory impairment Plan of Care - Shakira Jimenes RN - 09/01/2017 4:41 PM EDT Problem: Patient Care Overview Goal: Plan of Care Review Outcome: Ongoing (Interventions Implemented as Appropriate) 09/01/17 1531 09/01/17 1633 Plan of Care Review Progress -- progress toward functional goals as expected Coping/Psychosocial Plan Of Care Reviewed With patient -- OUTCOME EVALUATION NOTE: OUTCOME SUMMARY: AFib on tele w/ rates 66-132 (non-sustained hr >110 only briefly after showering and while urinating, no metoprolol needed). BP improving throughout the day (see chart). A+O. Pt denies all pain. Pt placed on 1L NC for comfort. Heparin gtt maintained per protocol. PLAN MOVING FORWARD: Gently diurese 0.5-1 L negative in 24 hours. JOJO w/ cardioversion tomorrow 09/02. INDIVIDUALIZED FALL PREVENTION INTERVENTIONS: Patient-specific fall risk factors per assessment: [current deficits]: Unfamiliar environment, telemetry Assistance [level of assistance required for transfers and ambulation]: SBA Supervision [direct monitoring required during toileting and ADLs]: SBA, telemetry and continuous pulse oximetry Surveillance [continuous indirect monitoring]: Purposeful hourly rounding, call wayne within reach Patient-specific fall prevention interventions for sensory deficits provided, if applicable: [X] Yes CPG GOAL OUTCOME EVALUATION: Ongoing Plan of Care - Key Rider PTA - 09/01/2017 3:35 PM EDT Problem: Patient Care Overview Goal: Plan of Care Review Outcome: Ongoing (Interventions Implemented as Appropriate) 09/01/17 1531 Plan of Care Review Progress improving Coping/Psychosocial Plan Of Care Reviewed With patient Physical Therapy Note Treatment Number: 2 Pertinent History of Current Problem: Pt is a 62 y.o. R-handed male with PMHx of systolic heart failure (EF 20%), atrial fibrillation (not on anticoagulation, s/p MAZE procedure in 2010with unresolved A.fib), mitral valve disease (s/p bioprosthetic valve replacement), and aortic valve disease (s/p bioprosthetic valve replacement) who is admitted to Cardiology for HF and AFib management, and now foundwith New Right frontal lobe infarct in the setting of left hand weakness and clumsiness. Assessment: Improved overall mobility with cane. Cane cut to correct length and issued to patient. All goals met. Please see the Rehab Evaluation Summaries section for detailed objective data and specifics of today???s session. Precautions/Restrictions: cardiac Precautions Comments: L UE weakness; new CVA; Heparin drip Vital Signs During Session: Stable Staff Mobility Recommendations: Ambulates with cane indep Therapy Frequency: 1-3 more visits Anticipated Discharge Disposition: home with assist, home with home health KEY RIDER, [facility] Pager: [phone] Inpatient Physical Therapy Problem: Acute Rehab Services Goal & Intervention Plan Goal: Gait Training Goal Stand Alone Therapy Goal Outcome: Outcome (s) achieved Date Met: 09/01/17 08/31/17 1113 09/01/17 1531 Gait Training Goal Gait Training Goal, Date Established 08/31/17 -- Gait Training Goal, Time to Achieve 3 days -- Gait Training Goal, [place] Level conditional independence -- Gait Training Goal, Assist Device (LRD) -- Gait Training Goal, Distance to Achieve 300 ft -- Gait Training Goal, Additional Goal Pt up and down 6 stairs with rail and supervision with LRD -- Gait Training Goal, Outcome -- goal met Plan of Care - Isa Dickens OTA - 09/01/2017 11:01 AM EDT Problem: Patient Care Overview Goal: Plan of Care Review Outcome: Ongoing (Interventions Implemented as Appropriate) 09/01/17 1531 09/01/17 1610 Plan of Care Review Progress -- improving Coping/Psychosocial Plan Of Care Reviewed With patient -- Occupational Therapy Treatment Note Treatment Number: 2 Pertinent History of Current Problem: Pt is a 62 y.o. R-handed male with PMHx of systolic heart failure (EF 20%), atrial fibrillation (not on anticoagulation, s/p MAZE procedure in 2010with unresolved A.fib), mitral valve disease (s/p bioprosthetic valve replacement), and aortic valve disease (s/p bioprosthetic valve replacement) who is admitted to Cardiology for HF and AFib management, and now foundwith New Right frontal lobe infarct in the setting of left hand weakness and clumsiness. Precautions/Restrictions: fall, cardiac Precautions Comments: L UE weakness; new CVA; Heparin drip Assessment: Pt seen today for skilled occupational therapy interventions. Session focused on increasing endurance and activity tolerance during ADL tasks to promote self care health maintenance and UE exercises to increase functional use of B hands. Pt has met most of his OT goals and will likely be able to return home with assist and home health, home OT once medically ready for dc. Pt will benefit from ongoing therapeutic interventions to achieve pt's and therapy goals. Please refer to associated flowsheet data for treatment session details. Therapy Frequency: 1-3 times/wk Anticipated Equipment Needs at Discharge: standard cane Anticipated Discharge Disposition: home with assist, home with home health (Home OT ) Pager: [phone] WILBUR Richards 09/01/2017 Occupational Therapy Rehabilitation Department Problem: Acute Rehab Services Goal & Intervention Plan Goal: Grooming Goal Stand Alone Therapy Goal Outcome: Ongoing (Interventions Implemented as Appropriate) 08/31/17155509/01/171609 Grooming Goal Grooming Goal, Date Established 08/31/17 -- Grooming Goal, Time to Achieve 1 wk -- Grooming Goal, Activity Type Pt will be able to tolerate standing to carry out grooming tasks at sink level, using B UEs to perform task independently. -- Grooming Goal, Outcome -- goal met Goal: Home Management Goal Stand Alone Therapy Goal Outcome: Ongoing (Interventions Implemented as Appropriate) 08/31/17155509/01/171609 Home Management Goal Home Mgmt Goal, Date Established 08/31/17 -- Home Mgmt Goal, Time To Achieve 1 wk -- Home Mgmt Goal, Activity Type Pt will be able to obtain his own snack and drink from kitchen independently. -- Home Mgmt Goal, Outcome Achieved -- goal ongoing Goal: LB Dressing Goal Stand Alone Therapy Goal Outcome: Ongoing (Interventions Implemented as Appropriate) 08/31/17155509/01/171609 LB Dressing Goal LB Dressing Goal, Date Established 08/31/17 -- LB Dressing Goal, Time to Achieve 1 wk -- LB Dressing Goal, Activity Type Pt will be able to dress LB modified independent; sitting/standing. -- LB Dressing Goal, Outcome -- goal partially met Goal: Occupational Therapy Goal Stand Alone Therapy Goal Outcome: Ongoing (Interventions Implemented as Appropriate) 08/31/17155509/01/171609 Occupational Therapy Goal OT Goal, Date Established 08/31/17 -- OT Goal, Time to Achieve 1 wk -- OT Goal, Activity Type Pt will tolerate 10 minutes of daily fine motor exercises in order to increase dexterity and performance in ADLs/IADLs. -- OT Goal, Outcome -- goal partially met Plan of Care - Catina Ortega RN - 09/01/2017 6:40 AM EDT Problem: Patient Care Overview Goal: Plan of Care Review Outcome: Ongoing (Interventions Implemented as Appropriate) 09/01/17 0612 Plan of Care Review Progress improving Coping/Psychosocial Plan Of Care Reviewed With patient OUTCOME EVALUATION NOTE: OUTCOME SUMMARY: Pt A&O, BP high - team aware. Left hand lime burner weak, pt doing exercises, lime burner is improving. SBA when ambulating. Pt able to sleep between care. PLAN MOVING FORWARD: Discharge planning INDIVIDUALIZED FALL PREVENTION INTERVENTIONS: Patient-specific fall risk factors per assessment: [current deficits]: Telemetry, hx stroke, left side weakness Assistance [level of assistance required for transfers and ambulation]: SBA Supervision [direct monitoring required during toileting and ADLs]: SBA Surveillance [continuous indirect monitoring]: Telemetry, purposeful rounding, call wayne within reach Patient-specific fall prevention interventions for sensory deficits provided, if applicable: [X] Yescall wayne within reach CPG GOAL OUTCOME EVALUATION: Ongoing Plan of Care - Adriana England - 08/31/2017 4:25 PM EDT Problem: Stroke (Ischemic) (Adult) Intervention: Monitor/Assist with Self Care 08/31/17 1621 Activity Activity Type activity encouraged;up ad rosetta Activity Assistance Provided independent Daily Care Interventions Self-Care Promotion independence encouraged;BADL personal objects within reach Goal: Signs and Symptoms of Listed Potential Problems Will be Absent, Minimized or Managed (Stroke) Signs and symptoms of listed potential problems will be absent, minimized or managed by discharge/transition of care (reference Stroke (Ischemic) (Adult) CPG). Outcome: Ongoing (Interventions Implemented as Appropriate) 08/31/17 1621 Stroke (Ischemic) Problems Assessed (Stroke (Ischemic)/TIA) all Problems Present (Stroke (Ischemic)/TIA) motor/sensory impairment [employer] in left hand remains markedly decreased but improving per patient. Denies decreased or loss in sensation. No other deficits noted. Afib/flutter w/ HR 90- 130's. PRN 5 mg IV metoprolol x 1. 12.5 mg po metoprolol started today. SBP 120- 160's w/ diastolics > 100. Independent in room. Good appetite. On RA. LCTA. Denies SOB. Plan of Care - Magali Crowell, CHILDREN'S PROGRAM COORDINATOR - 08/31/2017 1:25 PM EDT Problem: Patient Care Overview Goal: Plan of Care Review Outcome: Ongoing (Interventions Implemented as Appropriate) 08/31/17 1319 Coping/Psychosocial Plan Of Care Reviewed With patient (RN) SPEECH-LANGUAGE PATHOLOGY ASSESSMENT: Pt reported having suffered a R side stroke with initial presentation of L hand weakness and motor difficulty as well as some mental inattention and difficulty focusing. The latter has resolved. Pt hassome hearing loss, especially in the R ear, described as reduced acuity for higher pitched sounds (noise induced loss from years of listening to loud music in the 60's and 70's). Swallow of all po consistencies was WNL without any overt s/s of aspiration. This pt appears to have normalized communication skills. RECOMMENDATIONS: ?? No need for additional ST services at this time. D/C ST. ?? Continue with regular po consistencies, heart healthy [facility] diet. ?? Pt agreed with this plan. Magali Crowell, MS CCC-CHILDREN'S PROGRAM COORDINATOR [facility] Speech-Language Pathologist Rehabilitation Medicine Pager #[phone] Problem: Acute Rehab Services Goal & Intervention Plan Goal: Dysphagia Goal Stand Alone Therapy Goal Outcome: Outcome (s) achieved Date Met: 08/31/17 08/31/17 1319 Dysphagia Goal Dysphagia Goal, Date Established 08/31/17 Dysphagia Goal, Outcome goal met Plan of Care - Uvaldo Joshi PT - 08/31/2017 11:22 AM EDT Problem: Patient Care Overview Goal: Plan of Care Review Outcome: Ongoing (Interventions Implemented as Appropriate) 08/31/17 1113 Coping/Psychosocial Plan Of Care Reviewed With patient Physical Therapy Treatment Number: 1 Pertinent History of Current Problem: 62 y.o. R-handed male with PMHx of systolic heart failure (EF 20%), atrial fibrillation (not on anticoagulation, s/p MAZE procedure in 2010with unresolved A.fib), mitral valve disease (s/p bioprosthetic valve replacement), and aortic valve disease (s/p bioprosthetic valve replacement) who is admitted to Cardiology for HF and AFib management, and now found with New Right frontal lobe infarct in the setting of left hand weakness and clumsiness. Living Environment Comment: Pt resides at [facility] where he was indep [employer]. He does not drive. He reports he will have support avaliable as needed upon d/c from other practitioners at the [facility]. he reprots R LE weakness at baseline from a femor nerve removal but was indep and not falling. He has used a cane in the past but not recently. He rooms with 3 others and reprots 4 steps to access dorm room. Precautions/Restrictions: cardiac Precautions Comments: L UE weakness; new CVA; Heparin drip Vital Signs During Session: Heart Rate: 98 BP: 134/83 SpO2: 98 % O2 Device: None (Room air) Pt seen this AM in the [facility] for evaluation. Pt presents in HF with now new CVA and L UE weakness. L LE appears WNL's. Baseline R LE noted from old nerve injury. Pt is mobilizing with supervision. Will trial cane next visit. Anticipate pt will be safe for d/c back to retreat setting with support availab le. Home PT/OT safety eval upon d/c. Please see the Rehab Evaluation Summaries report for objective data and specifics of today???s session. Staff Mobility Recommendations: Ambulate 3-4x/daily with nursing Anticipated Physical Therapy Frequency: 1-3 more visits Anticipated Equipment Needs at Discharge: (will trial cane) Anticipated Discharge Disposition: home with assist, home with home health UVALDO JOSHI, PT Pager: [phone] Inpatient Physical Therapy 2017 PT Evaluation Code Rationale: ?? Diagnosis & Pertinent Co-Morbidities affecting Plan of Care: Patient Active Problem List Diagnosis Code ??? Acute systolic congestive heart failure I50.21 ??? Atrial fibrillation I48.91 ??? Cardiogenic pulmonary edema I50.1 ??? Hypertension I10 ??? 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 Stroke I63.9 ?? Clinical presentation: Stable Evolving Unstable X ?? Examination of Body Systems: Addressing 1-2 elements Addressing 3 + elements X Addressing 4 + elements Clinical decision making of moderate complexity based on pt's functional performance as outlined in this evaluation. Problem: Acute Rehab Services Goal & Intervention Plan Goal: Gait Training Goal Stand Alone Therapy Goal Outcome: Ongoing (Interventions Implemented as Appropriate) 08/31/17 1113 Gait Training Goal Gait Training Goal, Date Established 08/31/17 Gait Training Goal, Time to Achieve 3 days Gait Training Goal, [place] Level conditional independence Gait Training Goal, Assist Device (LRD) Gait Training Goal, Distance to Achieve 300 ft Gait Training Goal, Additional Goal Pt up and down 6 stairs with rail and supervision with LRD Plan of Care - Juan Mireles, OT - 08/31/2017 9:45 AM EDT Problem: Patient Care Overview Goal: Plan of Care Review Outcome: Ongoing (Interventions Implemented as Appropriate) 08/31/17 1556 Coping/Psychosocial Plan Of Care Reviewed With patient Occupational Therapy Evaluation Pertinent History of Current Problem: Pt is a 62 y.o. R-handed male with PMHx of systolic heart failure (EF 20%), atrial fibrillation (not on anticoagulation, s/p MAZE procedure in 2010with unresolved A.fib), mitral valve disease (s/p bioprosthetic valve replacement), and aortic valve disease (s/p bioprosthetic valve replacement) who is admitted to Cardiology for HF and AFib management, and now foundwith New Right frontal lobe infarct in the setting of left hand weakness and clumsiness. Active Non-Hospital Problems Diagnosis ??? Hypertension ??? H/O mitral valve replacement with tissue graft ??? H/O aortic valve replacement with porcine valve Precautions/Restrictions: cardiac, other (see comments) (L hand weakness) Precautions Comments: new CVA, heparin drip, SOB with exertion Living Environment Comment: Pt resides at [facility] where he was indep [employer]. He does not drive. He reports he will have support avaliable as [facility] he reprots R LE weakness at baseline from a femor nerve removal but was indep and not falling. He has used a cane in the past but not recently. He rooms with 3 others and reprots 4 steps to access dorm room. Prior Functional Level Comment: He was fully independent prior to admission, and helping to cook in the kitchen. Assessment: Pt has been seen by OT for evaluation, please refer to associated flowsheet data for details. David presents with activity limitations and/or participation restrictions 2' SOB with exertion, L hand weakness, L hand incoordination, decreased balance, and mobility. These impairments have a signif icant impact on the patient's performance in the following areas of occupation: BADLs, IADLs, rest/sleep, education, work, leisure, driving, and social participation. Pt currently requiring CG A with standing tasks, and mobility, and increased time and cues to manage tasks using bilateral UEs 2' weakne ss/incoordination of L UE. Pt would benefit from ongoing OT interventions to increase independence with self care and progress functional mobility while hospitalized. Therapy Frequency: 1-3 more visits Anticipated Equipment Needs at Discharge: standard cane, shower chair Anticipated Discharge Disposition: home with home health (HOME OT) Pager: [phone] JUAN MIRELES, OT 08/31/2017 Occupational Therapy Rehabilitation Department 2017 OT Evaluation Code Rationale: ?? Diagnosis & Pertinent Co-Morbidities affecting Plan of Care: see PMHx above ?? Clinical presentation: Stable Evolving Unstable x ?? Occupational Profile & Client History: Brief Expanded Extensive x ?? Assessment of Occupational Performance: 1-3 performance deficits 3-5 performance deficits x 5 + performance deficits Clinical decision making of moderate complexity using standardized patient assessment instrument andmeasurable assessment of functional outcome. Problem: Acute Rehab Services Goal & Intervention Plan Goal: Grooming Goal Stand Alone Therapy Goal Outcome: Ongoing (Interventions Implemented as Appropriate) 08/31/171555 Grooming Goal Grooming Goal, Date Established 08/31/17 Grooming Goal, Time to Achieve 1 wk Grooming Goal, Activity Type Pt will be able to tolerate standing to carry out grooming tasks at sink level, using B UEs to perform task independently. Goal: Home Management Goal Stand Alone Therapy Goal Outcome: Ongoing (Interventions Implemented as Appropriate) 08/31/17 155 Home Management Goal Home Mgmt Goal, Date Established 08/31/17 Home Mgmt Goal, Time To Achieve 1 wk Home Mgmt Goal, Activity Type Pt will be able to obtain his own snack and drink from kitchen independently. Goal: LB Dressing Goal Stand Alone Therapy Goal Outcome: Ongoing (Interventions Implemented as Appropriate) 08/31/17 1556 LB Dressing Goal LB Dressing Goal, Date Established 08/31/17 LB Dressing Goal, Time to Achieve 1 wk LB Dressing Goal, Activity Type Pt will be able to dress LB modified independent; sitting/standing. Goal: Occupational Therapy Goal Stand Alone Therapy Goal Outcome: Ongoing (Interventions Implemented as Appropriate) 08/31/17 1556 Occupational Therapy Goal OT Goal, Date Established 08/31/17 OT Goal, Time to Achieve 1 wk OT Goal, Activity Type Pt will tolerate 10 minutes of daily fine motor exercises in order to increase dexterity and performance in ADLs/IADLs. Plan of Care - Edel Esparza RN - 08/31/2017 2:25 AM EDT Problem: Patient Care Overview Goal: Plan of Care Review OUTCOME EVALUATION NOTE: OUTCOME SUMMARY: Pt admitted from [facility] in stable condition. Pt unable to lime burner with left hand. Stated he woke this way this morning and has also been very SOB in the last few weeks. Pt was found to be in Aflutter. Transferred here for furthur work up. Heparin drip infusing. Pt sent to CT scan which did show an evolving infarct. Neurology consulted. Pt sent for CTA of head and neck. MD into update patient. Pt understands and thought this was the case because he was told he was at high risk for stoke with his Afib. Pt also has elevated DBP. Informed MD. Will continue to monitor PLAN MOVING FORWARD: Continue to monitor, neuro checks, reassurance INDIVIDUALIZED FALL PREVENTION INTERVENTIONS: Patient-specific fall risk factors per assessment: [current deficits]: Weakness, left hand weak Assistance [level of assistance required for transfers and ambulation]: 1 assist Supervision [direct monitoring required during toileting and ADLs]: 1 assist Surveillance [continuous indirect monitoring]: Hourly rounding, telemetry, oximetry Patient-specific fall prevention interventions for sensory deficits provided, if applicable: [X] N/A CPG GOAL OUTCOME EVALUATION: Consult Note - Ml Catalan MD - 08/31/2017 12:39 AM EDT Vascular Neurology consult note Patient name: Cong Khan Date of : 1955 PCP: None Onset of symptoms (if witnessed): 1am 08/30/17 Last known well: 1am 08/30/17 Stroke Alert Activated: No Was IV tPA given greater than 60 minutes after time of hospital arrival: No TPA was not indicated in this patient CC: Left hand clumsiness and weakness, Right frontal lobe infarct HPI: Cong Khan is a 62 y.o. R-handed male with PMHx of systolic heart failure (EF 20%), atrial fibrillation (not on anticoagulation, s/p MAZE procedure in 2010with unresolved A.fib), mitral valve disease (s/p bioprosthetic valve replacement), and aortic valve disease (s/p bioprosthetic valve replacement) who is admitted to Cardiology for HF and AFib management, and now found with New Right frontal lobe infarct in the setting of left hand weakness and clumsiness. Was last at baseline 1am 08/30/17 when he awoke due to orthopnea and noted LEFT hand clumsiness and weakness. Notes inability to form a fist or have dexterity/fine motor control including holding a cup. Also states that his left eyelid felt heavy and coming down over his eyes during this episode. No reported facial droop, however. Denies slurred speech or vision changes. He did have intermittent dragging of his LEFT leg as well, but this resolved without any focal weakness. Denies new numbness or tingling (he does have baseline numbness of his right Leg that is suspected from femoral N compression 2/2 prior right high hematoma). According to pt, he was continued on warfarin post MAZE, but this was discontinued sometime in 2010 when he developed right thigh hematoma and found with INR of 7.9. Hehas not been back on AC since. During this admission, has been in NSR. He was started on heparin ggt by cardiology at OSH for anticoagulation. CT head reveals new right frontal lobe infract. CACO and TTE are currently pending, as isMRI brain. Pt is continued on ASA 325mg and Atorvastatin 80mg in the interim. Current Medications: Scheduled Meds: ??? sodium chloride 0.9 % 5 mL Intravenous Q12H ??? benzonatate 100 mg Oral TID ??? magnesium sulfate 2 g Intravenous Once ??? atorvastatin 80 mg Oral QPM ??? aspirin 325 mg Oral Daily Continuous Infusions: ??? heparin (porcine) 1,450 Units/hr (08/31/17 0036) PRN Meds:.sodium chloride 0.9 %, lidocaine, acetaminophen, heparin (porcine) AND heparin (porcine) Past Medical & Surgical History: Past Medical History: Diagnosis Date ??? Alcohol use disorder ??? Atrial fibrillation ??? CHF (congestive heart failure) ??? Hypertension ??? Mitral valve prolapse Past Surgical History: Procedure Laterality Date ??? AORTIC VALVE REPLACEMENT ??? GASTRIC FUNDOPLICATION ??? MITRAL VALVE REPLACEMENT ??? TOTAL HIP ARTHROPLASTY ??? TRICUSPID VALVULOPLASTY Home Medications: No current facility-administered medications on file prior to encounter. No current outpatient prescriptions on file prior to encounter. Allergy: No Known Allergies Family History: Family History Problem Relation Age of Onset ??? Emphysema Mother ??? Hypertension Mother ??? Alcohol Abuse Father ??? Aneurysm Father ??? Hypertension Father ??? Substance Abuse Brother Social History: Smoking:denies EtOH: heavy drinker, quit in 2013 Illicits: cocaine use formerly Social History Social History ??? Marital status: Single Spouse name: N/A ??? Number of children: N/A ??? Years of education: N/A Occupational History ??? Not on file. Social History Main Topics ??? Smoking status: Never Smoker ??? Smokeless tobacco: Never Used ??? Alcohol use No Comment: Former heavy daily user quit in 2013 ??? Drug use: No Comment: Former cocaine user ??? Sexual activity: No Other Topics Concern ??? Not on file Social History Narrative ??? No narrative on file Review of systems: Constitutional: No fevers or [...] Review of systems otherwise negative Physical Exam: Vitals: Temp: [36.6 ??C (97.9 ??F)] Heart Rate: [84-96] Resp: [18-27] BP: (136-162)/(88-120) SpO2: [91 %-97 %] Heart Rate from SPO2: [85 bpm-97 bpm] Gen: Patient of apparent stated age, well nourished, well developed, awake, alert, NAD Neck: Supple, no meningismus, no carotid bruit, no occipital tenderness CV: + S1, S2, RRR, no murmur Resp: CTA B/L Abd: +normoactive bowel sounds, soft, nontender, nondistended Ext: No edema. No bony deformity Neuro Exam: MS: AAOx4, clear language, no dysarthria, follows commands No graphesthesia on testing of left hand CN: PERRL, EOMI, visual thurman full Facial sensation intact, no facial asymmetry Hearing intact to finger rub Palate elevates symmetrically, tongue protrudes midline SCM and trap strength intact Motor: Normal bulk and tone. UE: 4/5 R (2/2 shoulder arthritis) , 5/5 L Arm abduction at shoulder 5/5 R, 5/5 L Elbow extension 5/5 R, 5/5 L Elbow flexion 5/5 R, 2/5 L Production Welder LE: 5/5 R, 5/5 L Hip flexion 5/5 R, 5/5 L Knee extension 5/5 R, 5/5 L Knee flexion 5/5 R, 5/5 L Foot dorsiflexion 5/5 R, 5/5 L Foot plantar flexion No protonator drift or monge's sign Sensation: Decreased sensation of right leg- baseline finding Reflexes: DTRs 2+ R, 2+ L Biceps 2+ R, 2+ L Brachioradialis 2+ R, 2+ L Triceps nil R, 2+ L Patellar 2+ R, 2+ L Achilles tendon Toes - R down, L down Coordination: Finger to nose intact, no dysmetria Rapid alternating movements & finger tapping smooth and symmetric Heel-knight intact No tremor Gait: not assessed NIH Stroke Scale: (bold applicable choices) NIH Stroke Scale at Initial Evaluation: 1.a. Level of consciousness: 0-Alert 1-Not alert, but arousable with minimal stimulation 2-Not alert, requires repeat stimulation to attend 3-Coma 1.b. Ask patient the month and their age: 0-Answers both correctly 1-Answers one correctly 2-Both incorrect 1.c. Ask patient to open and close eyes: 0-Obeys both correctly 1-Obeys one correctly 2-Both incorrect 2. Best gaze (horizontal eye movement): 0-Normal 1-Partial gaze palsy 2-Forced deviation 3. Visual field testin-No visual field loss 1-Partial hemianopia 2-Complete hemianopia 3-Bilateral hemianopia (blind including cortical blindness) 4. Facial paresis (Ask patient to show teeth or raise eyebrows and close eyes tightly): 0-Normal symmetrical movement 1-Minor paralysis (flattened nasolabial fold, asymmetry on smiling) 2-Partial paralysis (total or near paralysis of lower face) 3-Complete paralysis of one or both sides (absence of facial movement in the upper and lower face) 5. Motor function right arm: 0-Normal (extends arm 90 degrees for 10 seconds without drift) 1-Drift 2-Some effort against gravity 3-No effort against gravity 4-No movement 9-Untestable (Joint fused or limb amputated) 5. Motor function- left arm: 0-Normal (extends arm 90 degrees for 10 seconds without drift) 1-Drift 2-Some effort against gravity 3-No effort against gravity (but baseline) 4-No movement 9-Untestable (Joint fused or limb amputated) 6. Motor function right le-Normal (extends leg 30 degrees for 5 seconds without drift) 1-Drift 2-Some effort against gravity 3-No effort against gravity 4-No movement 9-Untestable (Joint fused or limb amputated) 6. Motor function-left le-Normal (extends leg 30 degrees for 5 seconds without drift) 1-Drift 2-Some effort against gravity 3-No effort against gravity 4-No movement 9-Untestable (Joint fused or limb amputated) 7. Limb ataxia: 0-No ataxia 1-Present in one limb 2-Present in two limbs 8. Sensory (Use pinprick to test arms, legs, trunk and face compare side to side): 0-Normal 1-Mild to moderate decrease in sensation (baseline right leg numbness) 2-Severe to total sensory loss 9. Best language (describe picture, name items, read sentences): 0-No aphasia 1-Mild to moderate aphasia 2-Severe aphasia 3-Mute 10. Dysarthria (read several words): 0-Normal articulation 1-Mild to moderate slurring of words 2-Near unintelligible or unable to speak 9-Intubated or other physical barrier 11. Extinction and inattention: 0-Normal 1-Inattention or extinction to bilateral simultaneous in one of the sensory modalities 2-Severe jadyn-inattention or jadyn-inattention to more than one modality TOTAL SCORE: 1 Labs: Recent Results (from the past 24 hour(s)) TSH Result Value Ref Range TSH 1.70 0.27 - 4.20 mlU/ML pro-Brain Natriuretic Peptide Result Value Ref Range ProBNP 7602 (H) <=125 pg/mL Cardiac Enzymes Result Value Ref Range Troponin-T 0.01 (H) 0.00 - 0.00 ng/mL CK, Total 243 (H) 0 - 200 unit/L Basic Metabolic Panel (non-fasting) Result Value Ref Range Glucose Lvl 97 65 - 199 mg/dL BUN 23 (H) 10 - 20 mg/dL Creatinine 1.02 0.80 - 1.50 mg/dL Sodium 140 135 - 145 mmol/L Potassium 3.4 (L) 3.5 - 5.0 mmol/L Chloride 100 98 - 107 mmol/L CO2 Not Perf 22 - 31 mmol/L Anion Gap Not Calculated 5 - 15 mmol/L Calcium 9.1 8.5 - 10.5 mg/dL Estimated GFR >60 >=60 Magnesium Result Value Ref Range Magnesium 0.80 0.69 - 1.07 mmol/L Hepatic Function Panel Result Value Ref Range Total Protein 6.4 6.1 - 8.0 gm/dL Albumin 3.7 3.2 - 5.2 gm/dL AST 25 0 - 39 unit/L ALT 40 0 - 55 unit/L Alk Phos 45 40 - 120 unit/L Total Bilirubin 0.6 0.2 - 1.3 mg/dL Bili, Direct 0.2 0.0 - 0.3 mg/dL APTT Result Value Ref Range PTT 42 (H) 25 - 35 sec Prothrombin Time Result Value Ref Range PT 15.1 (H) 12.0 - 15.0 sec INR 1.1 0.9 - 1.1 Hemogram Result Value Ref Range WBC 5.7 4.0 - 9.5 x10(3)/mcL RBC 4.28 (L) 4.58 - 5.54 x10(6)/mcL Hemoglobin 13.1 (L) 13.7 - 16.5 gm/dL Hematocrit 38.4 (L) 40.5 - 48.5 % MCV 89.7 82.9 - 93.1 fL MCH 30.6 27.5 - 32.1 pg MCHC 34.1 32.0 - 35.7 gm/dL Platelets 210 145 - 357 x10(3)/mcL RDWSD 43.2 36.0 - 45.0 fL RDWCV 13.2 11.4 - 13.8 % MPV 10.7 7.6 - 12.9 fL nRBC % Auto 0.0 % nRBC Abs Auto 0.000 0.000 - 0.000 x10(3)/mcL Differential, Automated Result Value Ref Range Neutrophils % 69.6 % Neutr Abs (ANC) 3.94 1.70 - 6.10 x10(3)/mcL Lymphocytes % 16.6 % Lymphocytes Abs 0.9 0.9 - 3.2 x10(3)/mcL Monocytes % 10.6 % Monocyte Abs 0.6 0.3 - 0.9 x10(3)/mcL Eosinophils % 2.5 % Eosinophils Abs 0.1 0.0 - 0.4 x10(3)/mcL Basophils % 0.5 % Basophils Abs 0.0 0.0 - 0.1 x10(3)/mcL Immature Gran % 0.20 % Cassie Gran Abs 0.01 0.00 - 0.04 x10(3)/mcL Diagnostic Tests and Imaging: Head CT w/out: time read and attending name IMPRESSION 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 No associated hemorrhage. ?? Swallow Screen Results: PASSED (All YES responses) Time 1am Assessment and Plan: Cong Khan is a 62 y.o. M with h/o unresolved afib s/p MAZE procedure (not on anticoagulation), HF with EF ~20%, AV and MV disease who p/w LEFT hand clumsiness and weakness since 1am 08/30/17 that has persisted with also intermittent LEFT leg heaviness that has now resolved . The symptoms localize to right anterior ciriculation. Could also consider right precentral gyrus for isolated left hand weakness. The likely etiology of this stroke is cardioembolic secondary to afib, likely compounded by HFwith low EF. Thrombolytics were considered and not given secondary to out of time window and stroke severity too mild. Would recommend keeping SPB>220 for permissive hypertension. Please continue Atorvastatin therapy for secondary stroke prevention, and Hep ggt. Ultimately, he should go back on warfarin given his A.fib is suboptimally controlled despite MAZE. Obtaining his OR records for this procedure (done in [place]) and whether the atrial appendage was removed would also be useful. No further imaging is recommended at this point. Recommendations - CTA carotids and habematolel of martinez negative for vessel abnormalities-- can hold off on carotid US - MRI brain not indicated -Neuro check & vitals Q 4hrs / Q4hrs -Permissive HTN, treat SBP >220 with prn labetalol, enalaprilat -Heparin ggt per cardiology -Atorvastatin 80mg QD - Resume warfarin - Obtain OSH OR records from [place] for MAZE procedure -Check CBC, BMP, LFT, lipid profile, HbA1c, Mg, Phos, UA -Telemetry -PT/OT/CHILDREN'S PROGRAM COORDINATOR Pt was discussed with Dr. Margareth Catalan MD 08/31/2017 Neurology resident PGY-2 Vascular Neurology Pager [phone] Standard [facility] [place] Swallow Screen: This screen is to be [...] diet as medical provider deems appropriate. Consider CHILDREN'S PROGRAM COORDINATOR consult for full evaluation and diet recommendations. ??? If NO to any of the responses, stop immediately, keep patient NPO and notify physician. ??? Associated attestation - Yoandy Manjarrez MD - 08/31/2017 10:11 PM EDT Neurology Staff Note I have reviewed the resident's history during the visit and I agree with the details as written. My physical examination confirms the resident's findings. The assessment and plan were formulated in discussion with me at the time of the visit and I agree with them as documented. We evaluated him today. 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 Has left facial weakness on my exam as well as the distal left UE. We explained why he needs to be anticoagulated again and since his AF is related to valvular disease, a NOAC is not approved for use and using Coumadin is the best option. Discussed with Cardiology this AM. OTx would be useful. documented in this encounter Plan of Treatment Upcoming Encounters Date Type Specialty Care Team Description 06/16/2022 Laboratory Appointment Lab 06/16/2022 Office Visit Cardiology Gianna Lorenzana PA [facility] Cardiology Dept [place], [place] [address] (Wo rk) Scheduled Orders Name Type Priority Associated Order Schedule Diagnoses Trans Echo (JOJO) with Echocardiography Routine Atrial On e Time for 1 Cardioversion fibrillation, Occurrences unspecified type starting until 7 Scheduled Procedures Name Priority Associated Diagnoses Date/Time EGD, UPPER GI ENDOSCOPY Chronic cough Heartburn RUQ pain Fecal urgency Dysphagia, unspecifi ed type History of hepatitis C COLONOSCOPY, DIAGNOSTIC Chronic cough Heartburn RUQ pain Fecal urgency Dysphagia, unspecifi ed type History of hepatitis C Scheduled Referrals Name Type Priority Associated Diagnoses Order S chedule Referral to Outpatient Routine Cerebrovascular Ordered: Occupational Therapy Referral accident (CVA) due t o 09/08/2017 embolism of right middle cerebral artery documented as of this encounter Procedures Procedure Name Priority Date/Time Associated Comments Diagnosis CUT OFF MAN SCAN 09/09/2017 12:00 Res ults for this AM EDT procedure are i n the results section. HEMOGRAM Routine 09/08/2017 3:57 Results for this AM EDT procedure are i n the results section. DIFFERENTIAL, AUTOMATED Routine 09/08/2017 3:57 R esults for this AM EDT procedure are i n the results section. PROTHROMBIN TIME Routine 09/08/2017 3:57 Results for this AM EDT procedure are i n the results section. CBC (WITH DIFF) Routine 09/08/2017 3:57 AM EDT MAGNESIUM Routine 09/08/2017 3:57 Results for this AM EDT procedure are i n the results section. BASIC METABOLIC PANEL Routine 09/08/2017 3:57 Res ults for this (NON-FASTING) AM EDT procedure are in the results section. BASIC METABOLIC PANEL Timed 09/07/2017 3:12 Res ults for this (NON-FASTING) PM EDT procedure are in the results section. HEMOGRAM Routine 09/07/2017 5:22 Results for this AM EDT procedure are i n the results section. DIFFERENTIAL, AUTOMATED Routine 09/07/2017 5:22 R esults for this AM EDT procedure are i n the results section. PROTHROMBIN TIME Routine 09/07/2017 5:22 Results for this AM EDT procedure are i n the results section. CBC (WITH DIFF) Routine 09/07/2017 5:22 AM EDT MAGNESIUM Routine 09/07/2017 5:22 Results for this AM EDT procedure are i n the results section. BASIC METABOLIC PANEL Routine 09/07/2017 5:22 Res ults for this (NON-FASTING) AM EDT procedure are in the results section. HEMOGRAM Routine 09/06/2017 5:04 Results for this AM EDT procedure are i n the results section. DIFFERENTIAL, AUTOMATED Routine 09/06/2017 5:04 R esults for this AM EDT procedure are i n the results section. PROTHROMBIN TIME Routine 09/06/2017 5:04 Results for this AM EDT procedure are i n the results section. CBC (WITH DIFF) Routine 09/06/2017 5:04 AM EDT MAGNESIUM Routine 09/06/2017 5:04 Results for this AM EDT procedure are i n the results section. BASIC METABOLIC PANEL Routine 09/06/2017 5:04 Res ults for this (NON-FASTING) AM EDT procedure are in the results section. HEMOGRAM Routine 09/05/2017 3:14 Results for this AM EDT procedure are i n the results section. DIFFERENTIAL, AUTOMATED Routine 09/05/2017 3:14 R esults for this AM EDT procedure are i n the results section. PROTHROMBIN TIME Routine 09/05/2017 3:14 Results for this AM EDT procedure are i n the results section. CBC (WITH DIFF) Routine 09/05/2017 3:14 AM EDT MAGNESIUM Routine 09/05/2017 3:14 Results for this AM EDT procedure are i n the results section. BASIC METABOLIC PANEL Routine 09/05/2017 3:14 Res ults for this (NON-FASTING) AM EDT procedure are in the results section. HEMOGRAM Routine 09/04/2017 3:32 Results for this AM EDT procedure are i n the results section. DIFFERENTIAL, AUTOMATED Routine 09/04/2017 3:32 R esults for this AM EDT procedure are i n the results section. APTT STAT 09/04/2017 3:32 Results for this AM EDT procedure are i n the results section. PROTHROMBIN TIME Routine 09/04/2017 3:32 Results for this AM EDT procedure are i n the results section. CBC (WITH DIFF) Routine 09/04/2017 3:32 AM EDT MAGNESIUM Routine 09/04/2017 3:32 Results for this AM EDT procedure are i n the results section. BASIC METABOLIC PANEL Routine 09/04/2017 3:32 Res ults for this (NON-FASTING) AM EDT procedure are in the results section. APTT STAT 09/03/2017 7:26 Results for this PM EDT procedure are i n the results section. APTT Timed 09/03/2017 10:20 Results for this AM EDT procedure are i n the results section. HEMOGRAM Routine 09/03/2017 3:26 Results for this AM EDT procedure are i n the results section. DIFFERENTIAL, AUTOMATED Routine 09/03/2017 3:26 R esults for this AM EDT procedure are i n the results section. APTT STAT 09/03/2017 3:26 Results for this AM EDT procedure are i n the results section. PROTHROMBIN TIME Routine 09/03/2017 3:26 Results for this AM EDT procedure are i n the results section. CBC (WITH DIFF) Routine 09/03/2017 3:26 AM EDT MAGNESIUM Routine 09/03/2017 3:26 Results for this AM EDT procedure are i n the results section. BASIC METABOLIC PANEL Routine 09/03/2017 3:26 Res ults for this (NON-FASTING) AM EDT procedure are in the results section. HEMOGRAM Routine 09/02/2017 3:41 Results for this AM EDT procedure are i n the results section. DIFFERENTIAL, AUTOMATED Routine 09/02/2017 3:41 R esults for this AM EDT procedure are i n the results section. APTT STAT 09/02/2017 3:41 Results for this AM EDT procedure are i n the results section. PROTHROMBIN TIME Routine 09/02/2017 3:41 Results for this AM EDT procedure are i n the results section. CBC (WITH DIFF) Routine 09/02/2017 3:41 AM EDT MAGNESIUM Routine 09/02/2017 3:41 Results for this AM EDT procedure are i n the results section. HEPATIC FUNCTION PANEL Routine 09/02/2017 3:41 Re sults for this AM EDT procedure are i n the results section. BASIC METABOLIC PANEL Routine 09/02/2017 3:41 Res ults for this (NON-FASTING) AM EDT procedure are in the results section. HEMOGRAM Routine 09/01/2017 4:07 Results for this AM EDT procedure are i n the results section. DIFFERENTIAL, AUTOMATED Routine 09/01/2017 4:07 R esults for this AM EDT procedure are i n the results section. APTT STAT 09/01/2017 4:07 Results for this AM EDT procedure are i n the results section. PROTHROMBIN TIME Routine 09/01/2017 4:07 Results for this AM EDT procedure are i n the results section. CBC (WITH DIFF) Routine 09/01/2017 4:07 AM EDT MAGNESIUM Routine 09/01/2017 4:07 Results for this AM EDT procedure are i n the results section. BASIC METABOLIC PANEL Routine 09/01/2017 4:07 Res ults for this (NON-FASTING) AM EDT procedure are in the results section. ECHO SCAN (SCAN) 09/01/2017 12:00 Results for this AM EDT procedure are i n the results section. APTT STAT 08/31/2017 3:10 Results for this PM EDT procedure are i n the results section. PROTHROMBIN TIME STAT 08/31/2017 3:10 Results for this PM EDT procedure are i n the results section. ECHOCARDIOGRAM COMPLETE Routine 08/31/2017 11:34 Acute systoli c Results for this AM EDT congestive heart procedure a re in failure the results section. EKG 12-LEAD STAT 08/31/2017 9:54 Atrial Results for this AM EDT fibrillation, procedure are in unspecified type the results section. APTT Timed 08/31/2017 6:40 Results for this AM EDT procedure are i n the results section. MAGNESIUM Routine 08/31/2017 6:40 Results for this AM EDT procedure are i n the results section. LDL CHOLESTEROL, DIRECT Routine 08/31/2017 6:40 R esults for this AM EDT procedure are i n the results section. HDL/CHOL PROFILE Routine 08/31/2017 6:40 Results for this AM EDT procedure are i n the results section. HEMOGLOBIN A1C Routine 08/31/2017 6:40 Results fo r this AM EDT procedure are i n the results section. BASIC METABOLIC PANEL Routine 08/31/2017 6:40 Res ults for this (NON-FASTING) AM EDT procedure are in the results section. CT CAROTIDS AND HOULTON Routine 08/31/2017 1:22 Re sults for this OF MARTINEZ W CONTRAST AM EDT procedu re are in the results section. HEMOGRAM Routine 08/30/2017 11:57 Results for this PM EDT procedure are i n the results section. DIFFERENTIAL, AUTOMATED Routine 08/30/2017 11:57 Results for this PM EDT procedure are i n the results section. APTT STAT 08/30/2017 11:57 Results for this PM EDT procedure are i n the results section. PROTHROMBIN TIME Routine 08/30/2017 11:57 Results for this PM EDT procedure are i n the results section. CBC (WITH DIFF) Routine 08/30/2017 11:57 PM EDT XR CHEST PA AND LATERAL Routine 08/30/2017 10:49 Results for this PM EDT procedure are i n the results section. CT HEAD WO CONTRAST Routine 08/30/2017 10:42 Resu lts for this (GENERIC) PM EDT procedure are i n the results section. CARDIAC ENZYMES Routine 08/30/2017 10:18 Results for this ([facility] [place]) PM EDT procedure are i n the results section. URIC ACID Routine 08/30/2017 10:18 Results for this PM EDT procedure are i n the results section. TSH Routine 08/30/2017 10:18 Results for this PM EDT procedure are i n the results section. PHOSPHORUS Routine 08/30/2017 10:18 Results for this PM EDT procedure are i n the results section. PRO-BRAIN NATRIURETIC Routine 08/30/2017 10:18 Re sults for this PEPTIDE PM EDT procedure are i n the results section. MAGNESIUM Routine 08/30/2017 10:18 Results for this PM EDT procedure are i n the results section. HEPATIC FUNCTION PANEL Routine 08/30/2017 10:18 R esults for this PM EDT procedure are i n the results section. BASIC METABOLIC PANEL Routine 08/30/2017 10:18 Re sults for this (NON-FASTING) PM EDT procedure are in the results section. EKG 12-LEAD Routine 08/30/2017 10:10 Acute systolic Results f or this PM EDT congestive heart procedure a re in failure the results section. documented in this encounter Results SCAN DOC: CUT OFF MAN (09/09/2017 12:00 AM EDT) Narrative 09/09/2017 12:00 AM EDT This result has an attachment that is no t available. Ordered by an unspecified provider. Scanning Provider MEDIA MGR SCAN EXT ORDR/RSLT Differential, Automated (09/08/2017 3:57 AM EDT) P athologist Signature Neutrophils % 64.9 % [facility] Neutr Abs (ANC) 3.87 1.70 - [facility] 6.10 [facility] x10(3)/[facility] LAB[facility] Lymphocytes % 17.1 % [facility] Lymphocytes Abs 1.0 0.9 - 3.2 [facility] x10(3)/[facility] Monocytes % 13.9 % [facility] Monocyte Abs 0.8 0.3 - 0.9 [facility] x10(3)/[facility] Eosinophils % 2.8 % [facility] Eosinophils Abs 0.2 0.0 - 0.4 [facility] x10(3)/[facility] Basophils % 1.0 % [facility] Basophils Abs 0.1 0.0 - 0.1 [facility] x10(3)/[facility] Immature Gran % 0.30 % [facility] Comment: Immature granulocytes(IG's)percentage an d absolute count will include metamyelocytes, myelocytes, and promyelo cytes. Blood smears from CBCs yielding IG's will be scanned manually for concor dance. If this scan disagrees with the automated IG or if promyelocytes are not ed, a manual differential will be performed. Cassie Gran Abs 0.02 0.00 - 0.04 x10(3)/[facility] MAR Y [facility] Specimen Anatomical Collection Method Collection Time Receive d Time (Source) Location / / Volume Laterality Blood specimen 09/08/2017 3:57 AM 017 4:47 (specimen) EDT AM EDT Resulting Agency Comment Spec In Lab Junito Apodaca MD HEMATOLOGY ORDERABLES Performing Organization Address City/State/[place] [address] Hemogram (09/08/2017 3:57 AM EDT) P athologist Signature WBC 6.0 4.0 - 9.5 [facility] RBC 4.67 4.58 - [place] 5.54 [facility] x10(6)/[facility] Hemoglobin 14.3 13.7 - [place] 16.5 gm/dL [facility] Hematocrit 42.6 40.5 - [facility] [place] 48.5 % [facility] MCV 91.2 82.9 - [place] 93.1 [facility] LABORATORY MCH 30.6 27.5 - [employer]COCK 32.1 pg [facility] MCHC 33.6 32.0 - [facility] [place] 35.7 gm/dL [facility] Platelets 204 145 - 357 [facility] RDWSD 41.1 36.0 - [place] 45.0 [facility] RDWCV 12.3 11.4 - [facility] [place] 13.8 % [facility] MPV 11.1 7.6 - 12.9 [facility] [employer] [facility] LABORATORY nRBC % Auto 0.0 % [facility] nRBC Abs Auto 0.000 0.000 - [facility] 0.000 [facility] x10(3)/[facility] LABORATORY Specimen Anatomical Collection Method Collection Time Receive d Time (Source) Location / / Volume Laterality Blood specimen 09/08/2017 3:57 AM 017 4:47 (specimen) EDT AM EDT Resulting Agency Comment Spec In Lab Junito Apodaca MD HEMATOLOGY ORDERABLES Performing Organization Address City/[facility]/ZIP Code Phon e Number [address] (ABNORMAL) Prothrombin Time (09/08/2017 3:57 AM EDT) P athologist Signature PT 23.8 (H) 11.8 - 14.0 [facility] LABORATORY Comment: An INR <2.0 indicates adequate [...] be appropriate depending on c linical circumstances. INR 2.1 (H) 0.9 - 1.1 [facility] LABORATORY Specimen Anatomical Collection Method Collection Time Receive d Time (Source) Location / / Volume Laterality Blood specimen 09/08/2017 3:57 AM 017 4:47 (specimen) EDT AM EDT Resulting Agency Comment Spec In Lab Junito Apodaca MD HEMATOLOGY ORDERABLES Performing Organization Address City/[facility]/[place] [address] (ABNORMAL) Magnesium (09/08/2017 3:57 AM EDT) P athologist Signature Magnesium 1.23 (H) 0.69 - 1.07 [facility] mmol/L [facility] LABORATORY Specimen Anatomical Collection Method Collection Time Receive d Time (Source) Location / / Volume Laterality Blood specimen 09/08/2017 3:57 AM 017 4:47 (specimen) EDT AM EDT Resulting Agency Comment Spec In Lab Junito Apodaca MD CHEMISTRY ORDERABLES Performing Organization Address City/State/[place] [address] (ABNORMAL) Basic Metabolic Panel (non-fasting) (09/08/2017 3:57 AM EDT) P athologist Signature Glucose Lvl 101 65 - 199 [facility] mg/dL [facility] LABORATORY Comment: Diabetes: >=200 mg/dL plus symp toms BUN 40 (H) 10 - 20 mg/dL [facility] LABORATORY Creatinine 1.37 0.80 - 1.50 mg/dL [facility] LABORATORY Sodium 133 (L) 135 - 145 mmol/L [facility] LABORATORY Potassium 5.0 3.5 - 5.0 mmol/L [facility] LABORATORY Comment: Please note: ??Patients with WBC >100,00 0 may have falsely elevated Potassium levels. ??For accurate Potassium quantif ication in these patients send serum separator tube (gold top) for subsequent determinations. ??Contact the Clinical Chemistry Laboratory if there are any qu estions. Chloride 95 (L) 98 - 107 mmol/L [facility] LABORATORY CO2 26 22 - 31 mmol/L [facility] LABORATORY Anion Gap 12 5 - 15 mmol/L [facility] LABORATORY Calcium 8.9 8.5 - 10.5 mg/dL [facility] LABORATORY Estimated GFR 52 (L) >=60 [facility] LABORATORY Comment: The reported eGFR should be multiplied b y 1.2 for patients. The MDRD is not an appropriate measure o f renal function for patients with body mass extremes or in patients with acute kidney failure. http://iSTAR.Lendinero/DHnkdep http://Bouncefootball/DHMCnkf Specimen Anatomical Collection Method Collection Time Receive d Time (Source) Location / / Volume Laterality Blood specimen 09/08/2017 3:57 AM 017 4:47 (specimen) EDT AM EDT Resulting Agency Comment Spec In Lab Junito Apodaca MD CHEMISTRY ORDERABLES Performing Organization Address City/State/[place] [address] (ABNORMAL) Basic Metabolic Panel (non-fasting) (09/07/2017 3:12 PM EDT) P athologist Signature Glucose Lvl 109 65 - 199 [facility] mg/dL [facility] LABORATORY Comment: Diabetes: >=200 mg/dL plus symp toms BUN 45 (H) 10 - 20 mg/dL [facility] LABORATORY Creatinine 1.43 0.80 - 1.50 mg/dL [facility] LABORATORY Sodium 130 (L) 135 - 145 mmol/L [facility] LABORATORY Potassium 5.1 (H) 3.5 - 5.0 mmol/L [facility] LABORATORY Comment: Please note: ??Patients with WBC >100,00 0 may have falsely elevated Potassium levels. ??For accurate Potassium quantif ication in these patients send serum separator tube (gold top) for subsequent determinations. ??Contact the Clinical Chemistry Laboratory if there are any qu estions. Chloride 92 (L) 98 - 107 mmol/L [facility] LABORATORY CO2 26 22 - 31 mmol/L [facility] LABORATORY Anion Gap 12 5 - 15 mmol/L [facility] LABORATORY Calcium 8.5 8.5 - 10.5 mg/dL [facility] LABORATORY Estimated GFR 50 (L) >=60 [facility] LABORATORY Comment: The reported eGFR should be multiplied b y 1.2 for patients. The MDRD is not an appropriate measure o f renal function for patients with body mass extremes or in patients with acute kidney failure. http://iSTAR.Lendinero/DHnkdep [email or web address].Lendinero/DHMCnkf Specimen Anatomical Collection Method Collection Time Receive d Time (Source) Location / / Volume Laterality Blood specimen 09/07/2017 3:12 PM 017 3:21 (specimen) EDT PM EDT Resulting Agency Comment Spec In Lab Jae Feldman MD CHEMISTRY ORDERABLES Performing Organization Address City/State/ZIP Code Phon e Number [place] [phone] [facility] LAB[address]ORY Drive Differential, Automated (09/07/2017 5:22 AM EDT) P athologist Signature Neutrophils % 65.7 % [facility] LABORATORY Neutr Abs (ANC) 4.07 1.70 - [facility] 6.10 [facility] x10(3)/[facility] LABORATORY Lymphocytes % 19.8 % [facility] LABORATORY Lymphocytes Abs 1.2 0.9 - 3.2 [facility] x10(3)/[facility] LABORATORY Monocytes % 12.1 % [facility] LABORATORY Monocyte Abs 0.8 0.3 - 0.9 [facility] x10(3)/[facility] LABORATORY Eosinophils % 1.5 % [facility] LABORATORY Eosinophils Abs 0.1 0.0 - 0.4 [facility] x10(3)/[facility] LABORATORY Basophils % 0.6 % [facility] LABORATORY Basophils Abs 0.0 0.0 - 0.1 [facility] x10(3)/[facility] LABORATORY Immature Gran % 0.30 % [facility] LABORATORY Comment: Immature granulocytes(IG's)percentage an d absolute count will include metamyelocytes, myelocytes, and promyelo cytes. Blood smears from CBCs yielding IG's will be scanned manually for concor dance. If this scan disagrees with the automated IG or if promyelocytes are not ed, a manual differential will be performed. Cassie Gran Abs 0.02 0.00 - 0.04 x10(3)/[facility] LABORATORY Specimen Anatomical Collection Method Collection Time Receive d Time (Source) Location / / Volume Laterality Blood specimen 09/07/2017 5:22 AM 017 5:29 (specimen) EDT AM EDT Resulting Agency Comment Spec In Lab Junito Apodaca MD HEMATOLOGY ORDERABLES Performing Organization Address City/[facility]/[place] [address] [facility] [address] Hemogram (09/07/2017 5:22 AM EDT) P athologist Signature WBC 6.2 4.0 - 9.5 [facility] x10(3)/[facility] LABORATORY RBC 5.01 4.58 - [facility] 5.54 [facility] x10(6)/[facility] LABORATORY Hemoglobin 15.2 13.7 - [facility]/dL [facility] LABORATORY Hematocrit 45.1 40.5 - [facility] 48.5 % [facility] LABORATORY MCV 90.0 82.9 - [facility] 93.1 [facility] LABORATORY MCH 30.3 27.5 - [facility] 32.1 pg [facility] LABORATORY MCHC 33.7 32.0 - [facility] 35.7 gm/dL [facility] LABORATORY Platelets 229 145 - 357 [facility] x10(3)/[facility] LABORATORY RDWSD 41.0 36.0 - [facility] 45.0 [facility] LABORATORY RDWCV 12.4 11.4 - [facility] 13.8 % [facility] LABORATORY MPV 10.8 7.6 - 12.9 [facility] LABORATORY nRBC % Auto 0.0 % [facility] LABORATORY nRBC Abs Auto 0.000 0.000 - [facility] 0.000 [facility] x10(3)/[facility] LABORATORY Specimen Anatomical Collection Method Collection Time Receive d Time (Source) Location / / Volume Laterality Blood specimen 09/07/2017 5:22 AM 017 5:29 (specimen) EDT AM EDT Resulting Agency Comment Spec In Lab Junito Apodaca MD HEMATOLOGY ORDERABLES Performing Organization Address City/State/[place] [address] (ABNORMAL) Prothrombin Time (09/07/2017 5:22 AM EDT) P athologist Signature PT 24.2 (H) 11.8 - 14.0 [facility] LABORATORY Comment: An INR <2.0 indicates adequate [...] be appropriate depending on c linical circumstances. INR 2.2 (H) 0.9 - 1.1 [facility] LABORATORY Specimen Anatomical Collection Method Collection Time Receive d Time (Source) Location / / Volume Laterality Blood specimen 09/07/2017 5:22 AM 017 5:29 (specimen) EDT AM EDT Resulting Agency Comment Spec In Lab Junito Apodaca MD HEMATOLOGY ORDERABLES Performing Organization Address City/State/ZIP Code Phon e Number [address] Magnesium (09/07/2017 5:22 AM EDT) P athologist Signature Magnesium 1.04 0.69 - 1.07 [facility] mmol/L [facility] LABORATORY Specimen Anatomical Collection Method Collection Time Receive d Time (Source) Location / / Volume Laterality Blood specimen 09/07/2017 5:22 AM 017 5:29 (specimen) EDT AM EDT Resulting Agency Comment Spec In Lab Junito Apodaca MD CHEMISTRY ORDERABLES Performing Organization Address City/State/ZIP Code Phon e Number [address] (ABNORMAL) Basic Metabolic Panel (non-fasting) (09/07/2017 5:22 AM EDT) P athologist Signature Glucose Lvl 113 65 - 199 [facility] mg/dL [facility] LABORATORY Comment: Diabetes: >=200 mg/dL plus symp toms BUN 45 (H) 10 - 20 mg/dL [facility] LABORATORY Creatinine 1.68 (H) 0.80 - 1.50 mg/dL [facility] LABORATORY Sodium 134 (L) 135 - 145 mmol/L [facility] LABORATORY Potassium 5.1 (H) 3.5 - 5.0 mmol/L [facility] LABORATORY Comment: Please note: ??Patients with WBC >100,00 0 may have falsely elevated Potassium levels. ??For accurate Potassium quantif ication in these patients send serum separator tube (gold top) for subsequent determinations. ??Contact the Clinical Chemistry Laboratory if there are any qu estions. Chloride 94 (L) 98 - 107 mmol/L [facility] LABORATORY CO2 28 22 - 31 mmol/L [facility] LABORATORY Anion Gap 12 5 - 15 mmol/L [facility] LABORATORY Calcium 9.2 8.5 - 10.5 mg/dL [facility] LABORATORY Estimated GFR 41 (L) >=60 [facility] LABORATORY Comment: The reported eGFR should be multiplied b y 1.2 for patients. The MDRD is not an appropriate measure o f renal function for patients with body mass extremes or in patients with acute kidney failure. http://Bouncefootball/DHnkdep http://Bouncefootball/DHMCnkf Specimen Anatomical Collection Method Collection Time Receive d Time (Source) Location / / Volume Laterality Blood specimen 09/07/2017 5:22 AM 017 5:29 (specimen) EDT AM EDT Resulting Agency Comment Spec In Lab Junito Apodaca MD CHEMISTRY ORDERABLES Performing Organization Address City/State/[place] [address] Differential, Automated (09/06/2017 5:04 AM EDT) P athologist Signature Neutrophils % 70.4 % [facility] LABORATORY Neutr Abs (ANC) 4.35 1.70 - [facility] 6.10 [facility] x10(3)/[facility] LABORATORY Lymphocytes % 16.7 % [facility] LABORATORY Lymphocytes Abs 1.0 0.9 - 3.2 [facility] x10(3)/[facility] LABORATORY Monocytes % 10.2 % [facility] LABORATORY Monocyte Abs 0.6 0.3 - 0.9 [facility] x10(3)/[facility] LABORATORY Eosinophils % 1.9 % [facility] LABORATORY Eosinophils Abs 0.1 0.0 - 0.4 [facility] x10(3)/[facility] LABORATORY Basophils % 0.5 % [facility] LABORATORY Basophils Abs 0.0 0.0 - 0.1 [facility] x10(3)/[facility] LABORATORY Immature Gran % 0.30 % [facility] LABORATORY Comment: Immature granulocytes(IG's)percentage an d absolute count will include metamyelocytes, myelocytes, and promyelo cytes. Blood smears from CBCs yielding IG's will be scanned manually for concor dance. If this scan disagrees with the automated IG or if promyelocytes are not ed, a manual differential will be performed. Cassie Gran Abs 0.02 0.00 - 0.04 x10(3)/[facility] LABORATORY Specimen Anatomical Collection Method Collection Time Receive d Time (Source) Location / / Volume Laterality Blood specimen 09/06/2017 5:04 AM 017 5:30 (specimen) EDT AM EDT Resulting Agency Comment Spec In Lab Junito Apodaca MD HEMATOLOGY ORDERABLES Performing Organization Address City/State/[place] [address] Hemogram (09/06/2017 5:04 AM EDT) P athologist Signature WBC 6.2 4.0 - 9.5 [facility] x10(3)/[facility] LABORATORY RBC 5.25 4.58 - [facility] 5.54 [facility] x10(6)/[facility] LABORATORY Hemoglobin 15.7 13.7 - [facility] 16.5 gm/dL [facility] LABORATORY Hematocrit 47.0 40.5 - [facility] 48.5 % [facility] LABORATORY MCV 89.5 82.9 - [facility] 93.1 [facility] LABORATORY MCH 29.9 27.5 - [facility] 32.1 pg [facility] LABORATORY MCHC 33.4 32.0 - [facility] 35.[facility] gm/dL [facility] LABORATORY Platelets 214 145 - 357 [facility] x10(3)/[facility] RDWSD 41.5 36.0 - [facility] 45.0 [facility] RDWCV 12.5 11.4 - [facility] 13.8 % [facility] LABORATORY MPV 11.0 7.6 - 12.9 [facility] LABORATORY nRBC % Auto 0.0 % [facility] LABORATORY nRBC Abs Auto 0.000 0.000 - [facility] 0.000 [facility] x10(3)/[facility] LABORATORY Specimen Anatomical Collection Method Collection Time Receive d Time (Source) Location / / Volume Laterality Blood specimen 09/06/2017 5:04 AM 017 5:30 (specimen) EDT AM EDT Resulting Agency Comment Spec In Lab Junito Apodaca MD HEMATOLOGY ORDERABLES Performing Organization Address City/State/ZIP Code Phon e Number [address] (ABNORMAL) Prothrombin Time (09/06/2017 5:04 AM EDT) P athologist Signature PT 22.3 (H) 12.0 - 15.0 [facility] LABORATORY Comment: An INR <2.0 indicates adequate [...] be appropriate depending on c linical circumstances. INR 1.9 (H) 0.9 - 1.1 [facility] LABORATORY Specimen Anatomical Collection Method Collection Time Receive d Time (Source) Location / / Volume Laterality Blood specimen 09/06/2017 5:04 AM 017 5:30 (specimen) EDT AM EDT Resulting Agency Comment Spec In Lab Junito Apodaca MD HEMATOLOGY ORDERABLES Performing Organization Address City/State/ZIP Code Phon e Number [address] Magnesium (09/06/2017 5:04 AM EDT) P athologist Signature Magnesium 1.01 0.69 - 1.07 [facility] mmol/L [facility] LABORATORY Specimen Anatomical Collection Method Collection Time Receive d Time (Source) Location / / Volume Laterality Blood specimen 09/06/2017 5:04 AM 017 5:30 (specimen) EDT AM EDT Resulting Agency Comment Spec In Lab Junito Apodaca MD CHEMISTRY ORDERABLES Performing Organization Address City/State/[place] [address] (ABNORMAL) Basic Metabolic Panel (non-fasting) (09/06/2017 5:04 AM EDT) athologist Signature Glucose Lvl 106 65 - 199 [facility] mg/dL [facility] LABORATORY Comment: Diabetes: >=200 mg/dL plus symp toms BUN 37 (H) 10 - 20 mg/dL [facility] LABORATORY Creatinine 1.57 (H) 0.80 - 1.50 mg/dL [facility] LABORATORY Comment: Please note that the pediatric reference intervals supplied above were not validated at [facility]. Results from pediatri c patients should be interpreted in conjunction to the patient's age, height and muscle mass. Sodium 135 135 - 145 mmol/L [facility] LABORATORY Potassium 4.6 3.5 - 5.0 mmol/L [facility] LABORATORY Comment: Please note: ??Patients with WBC >100,00 0 may have falsely elevated Potassium levels. ??For accurate Potassium quantif ication in these patients send serum separator tube (gold top) for subsequent determinations. ??Contact the Clinical Chemistry Laboratory if there are any qu estions. Chloride 93 (L) 98 - 107 mmol/L [facility] LABORATORY CO2 30 22 - 31 mmol/L [facility] LABORATORY Anion Gap 12 5 - 15 mmol/L [facility] LABORATORY Calcium 9.4 8.5 - 10.5 mg/dL [facility] LABORATORY Estimated GFR 45 (L) >=60 [facility] LABORATORY Comment: This estimated GFR (eGFR) value was calc ulated using the MDRD equation which has been validated on patients between t he ages of 18 and 70. The MDRD should not be used to assess kidney function in patients < 18 years of age or in patients with extremes of body mass, or in patients with acute kidney failure. This value should be multiplied by 1.2 f or patients. For further information please copy and past e the following links into your internet browser. http://Bouncefootball/DHnkdep http://Bouncefootball/DHMCnkf Specimen Anatomical Collection Method Collection Time Receive d Time (Source) Location / / Volume Laterality Blood specimen 09/06/2017 5:04 AM 017 5:30 (specimen) EDT AM EDT Resulting Agency Comment Spec In Lab Junito Apodaca MD CHEMISTRY ORDERABLES Performing Organization Address City/State/ZIP Code Phon e Number [place] [phone]OS[address] LAB[address]ORY Drive (ABNORMAL) Differential, Automated (09/05/2017 3:14 AM EDT) [facility] Method Time Signature Neutrophils % 73.0 % [facility] LABORATORY Neutr Abs (ANC) 6.43 (H) 1.70 - [facility] 6.10 [facility] x10(3)/[facility] LABORATORY Lymphocytes % 14.9 % [facility] LABORATORY Lymphocytes Abs 1.3 0.9 - 3.2 [facility] x10(3)/[facility] LABORATORY Monocytes % 10.4 % [facility] LABORATORY Monocyte Abs 0.9 0.3 - 0.9 [facility] x10(3)/[facility] LABORATORY Eosinophils % 1.1 % [facility] LABORATORY Eosinophils Abs 0.1 0.0 - 0.4 [facility] x10(3)/[facility] LABORATORY Basophils % 0.3 % [facility] LABORATORY Basophils Abs 0.0 0.0 - 0.1 [facility] x10(3)/[facility] LABORATORY Immature Gran % 0.30 % [facility] LABORATORY Comment: Immature granulocytes(IG's)percentage an d absolute count will include metamyelocytes, myelocytes, and promyelo cytes. Blood smears from CBCs yielding IG's will be scanned manually for concor dance. If this scan disagrees with the automated IG or if promyelocytes are not ed, a manual differential will be performed. Cassie Gran Abs 0.03 0.00 - 0.04 x10(3)/[facility] LABORATORY Specimen Anatomical Collection Method Collection Time Receive d Time (Source) Location / / Volume Laterality Blood specimen 09/05/2017 3:14 AM 017 3:36 (specimen) EDT AM EDT Resulting Agency Comment Spec In Lab Junito Apodaca MD HEMATOLOGY ORDERABLES Performing Organization Address City/State/[place] [address] Hemogram (09/05/2017 3:14 AM EDT) P athologist Signature WBC 8.8 4.0 - 9.5 [facility] x10(3)/[facility] LABORATORY RBC 4.94 4.58 - [facility] 5.54 [facility] x10(6)/[facility] LABORATORY Hemoglobin 15.1 13.7 - [facility] 16.5 gm/dL [facility] LABORATORY Hematocrit 44.7 40.5 - [facility] 48.5 % [facility] LABORATORY MCV 90.5 82.9 - [facility] 93[facility]1 [facility] LABORATORY MCH 30.6 27.5 - [facility] 32.1 pg [facility] LABORATORY MCHC 33.8 32.0 - [facility] 35.7 gm/dL [facility] LABORATORY Platelets 241 145 - 357 [facility] x10(3)/[facility] LABORATORY RDWSD 41.9 36.0 - [facility] 45.0 [facility] LABORATORY RDWCV 12.7 11.4 - [facility] 13.8 % [facility] LABORATORY MPV 11.2 7.6 - 12.9 [facility] LABORATORY nRBC % Auto 0.0 % [facility] LABORATORY nRBC Abs Auto 0.000 0.000 - [facility] 0.000 [facility] x10(3)/[facility] LABORATORY Specimen Anatomical Collection Method Collection Time Receive d Time (Source) Location / / Volume Laterality Blood specimen 09/05/2017 3:14 AM 017 3:36 (specimen) EDT AM EDT Resulting Agency Comment Spec In Lab Junito Apodaca MD HEMATOLOGY ORDERABLES Performing Organization Address City/State/[place] [address] (ABNORMAL) Prothrombin Time (09/05/2017 3:14 AM EDT) athologist Signature PT 19.2 (H) 12.0 - 15.0 [facility] LABORATORY Comment: An INR <2.0 indicates adequate [...] be appropriate depending on c linical circumstances. INR 1.5 (H) 0.9 - 1.1 [facility] LABORATORY Specimen Anatomical Collection Method Collection Time Receive d Time (Source) Location / / Volume Laterality Blood specimen 09/05/2017 3:14 AM 017 3:36 (specimen) EDT AM EDT Resulting Agency Comment Spec In Lab Junito Apodaca MD HEMATOLOGY ORDERABLES Performing Organization Address City/[facility]/[place] [address] Magnesium (09/05/2017 3:14 AM EDT) athologist Signature Magnesium 0.96 0.69 - 1.07 [facility] mmol/L [facility] LABORATORY Specimen Anatomical Collection Method Collection Time Receive d Time (Source) Location / / Volume Laterality Blood specimen 09/05/2017 3:14 AM 017 3:36 (specimen) EDT AM EDT Resulting Agency Comment Spec In Lab Junito Apodaca MD CHEMISTRY ORDERABLES Performing Organization Address City/State/[place] [address] (ABNORMAL) Basic Metabolic Panel (non-fasting) (09/05/2017 3:14 AM EDT) athologist Signature Glucose Lvl 102 65 - 199 [facility] mg/dL [facility] Comment: Diabetes: >=200 mg/dL plus symp toms BUN 29 (H) 10 - 20 mg/dL [facility] LABORATORY Creatinine 1.31 0.80 - 1.50 mg/dL [facility] LABORATORY Comment: Please note that the pediatric reference intervals supplied above were not validated at [facility]. Results from pediatri c patients should be interpreted in conjunction to the patient's age, height and muscle mass. Sodium 135 135 - 145 mmol/L [facility] LABORATORY Potassium 4.4 3.5 - 5.0 mmol/L [facility] LABORATORY Comment: Please note: ??Patients with WBC >100,00 0 may have falsely elevated Potassium levels. ??For accurate Potassium quantif ication in these patients send serum separator tube (gold top) for subsequent determinations. ??Contact the Clinical Chemistry Laboratory if there are any qu estions. Chloride 93 (L) 98 - 107 mmol/L [facility] LABORATORY CO2 27 22 - 31 mmol/L [facility] LABORATORY Anion Gap 15 5 - 15 mmol/L [facility] LABORATORY Calcium 9.3 8.5 - 10.5 mg/dL [facility] LABORATORY Estimated GFR 55 (L) >=60 [facility] LABORATORY Comment: This estimated GFR (eGFR) value was calc ulated using the MDRD equation which has been validated on patients between t he ages of 18 and 70. The MDRD should not be used to assess kidney function in patients < 18 years of age or in patients with extremes of body mass, or in patients with acute kidney failure. This value should be multiplied by 1.2 f or patients. For further information please copy and past e the following links into your internet browser. [email or web address] Specimen Anatomical Collection Method Collection Time Receive d Time (Source) Location / / Volume Laterality Blood specimen 09/05/2017 3:14 AM 017 3:36 (specimen) EDT AM EDT Resulting Agency Comment Spec In Lab Junito Apodaca MD CHEMISTRY ORDERABLES Performing Organization Address City/State/[place] [address] (ABNORMAL) APTT (09/04/2017 3:32 AM EDT) athologist Signature PTT 92 (H) 25 - 35 sec [facility] LABORATORY Comment: The recommended therapeutic range for fu ll dose, unfractionated heparin at [facility] is 80 ? 114 seconds. The use of the anti-Xa (heparin) level rather than the PTT is recommended for monitoring anticoagul ation intensity in critically ill patients receiving unfractionated hepari n by continuous IV infusion. Specimen Anatomical Collection Method Collection Time Receive d Time (Source) Location / / Volume Laterality Blood specimen 09/04/2017 3:32 AM 017 4:09 (specimen) EDT AM EDT Resulting Agency Comment Spec In Lab Junito Apodaca MD HEMATOLOGY ORDERABLES Performing Organization Address City/State/[place] [address] Differential, Automated (09/04/2017 3:32 AM EDT) athologist Signature Neutrophils % 64.7 % [facility] LABORATORY Neutr Abs (ANC) 3.70 1.70 - [facility] 6.10 [facility] x10(3)/[facility] LABORATORY Lymphocytes % 19.9 % [facility] LABORATORY Lymphocytes Abs 1.1 0.9 - 3.2 [facility] x10(3)/[facility] LABORATORY Monocytes % 11.7 % [facility] LABORATORY Monocyte Abs 0.7 0.3 - 0.9 [facility] x10(3)/[facility] LABORATORY Eosinophils % 3.0 % [facility] LABORATORY Eosinophils Abs 0.2 0.0 - 0.4 [facility] x10(3)/[facility] LABORATORY Basophils % 0.5 % [facility] LABORATORY Basophils Abs 0.0 0.0 - 0.1 [facility] x10(3)/[facility] LABORATORY Immature Gran % 0.20 % [facility] LABORATORY Comment: Immature granulocytes(IG's)percentage an d absolute count will include metamyelocytes, myelocytes, and promyelo cytes. Blood smears from CBCs yielding IG's will be scanned manually for concor danfaiza. If this scan disagrees with the automated IG or if promyelocytes are not ed, a manual differential will be performed. Cassie Gran Abs 0.01 0.00 - 0.04 x10(3)/[facility] LABORATORY Specimen Anatomical Collection Method Collection Time Receive d Time (Source) Location / / Volume Laterality Blood specimen 09/04/2017 3:32 AM 017 4:08 (specimen) EDT AM EDT Resulting Agency Comment Spec In Lab Junito Apodaca MD HEMATOLOGY ORDERABLES Performing Organization Address City/State/[place] [address] Hemogram (09/04/2017 3:32 AM EDT) P athologist Signature WBC 5.7 4.0 - 9.5 [facility] x10(3)/[facility] LABORATORY RBC 4.62 4.58 - [facility] 5[facility]54 [facility] x10(6)/[facility] LABORATORY Hemoglobin 14.3 13.7 - [facility] 16.[facility] gm/dL [facility] LABORATORY Hematocrit 41.2 40.5 - [facility] 48.[facility] % [facility] LABORATORY MCV 89.2 82.9 - [facility] 93.1 [facility] LABORATORY MCH 31.0 27.5 - [facility] 32.1 pg [facility] LABORATORY MCHC 34.7 32.0 - [facility] 35.7 gm/dL [facility] LABORATORY Platelets 198 145 - 357 [facility] x10(3)/[facility] LABORATORY RDWSD 41.5 36.0 - [facility] 45.0 [facility] LABORATORY RDWCV 12.7 11.4 - [facility] 13.8 % [facility] LABORATORY MPV 11.7 7.6 - 12.9 [facility] LABORATORY nRBC % Auto 0.0 % [facility] LABORATORY nRBC Abs Auto 0.000 0.000 - [facility] 0.000 [facility] x10(3)/[facility] LABORATORY Specimen Anatomical Collection Method Collection Time Receive d Time (Source) Location / / Volume Laterality Blood specimen 09/04/2017 3:32 AM 017 4:08 (specimen) EDT AM EDT Resulting Agency Comment Spec In Lab Junito Apodaca MD HEMATOLOGY ORDERABLES Performing Organization Address City/State/ZIP Code Phon e Number [address] (ABNORMAL) Prothrombin Time (09/04/2017 3:32 AM EDT) P athologist Signature PT 17.7 (H) 12.0 - 15.0 [facility] LABORATORY Comment: An INR <2.0 indicates adequate [...] be appropriate depending on c linical circumstances. INR 1.4 (H) 0.9 - 1.1 [facility] LABORATORY Specimen Anatomical Collection Method Collection Time Receive d Time (Source) Location / / Volume Laterality Blood specimen 09/04/2017 3:32 AM 017 4:08 (specimen) EDT AM EDT Resulting Agency Comment Spec In Lab Junito Apodaca MD HEMATOLOGY ORDERABLES Performing Organization Address City/[facility]/ZIP Code Phon e Number [address] Magnesium (09/04/2017 3:32 AM EDT) P athologist Signature Magnesium 0.93 0.69 - 1.07 [facility] mmol/L [facility] LABORATORY Specimen Anatomical Collection Method Collection Time Receive d Time (Source) Location / / Volume Laterality Blood specimen 09/04/2017 3:32 AM 017 4:08 (specimen) EDT AM EDT Resulting Agency Comment Spec In Lab Junito Apodaca MD CHEMISTRY ORDERABLES Performing Organization Address City/[facility]/[place] [address] (ABNORMAL) Basic Metabolic Panel (non-fasting) (09/04/2017 3:32 AM EDT) athologist Signature Glucose Lvl 108 65 - 199 [facility] mg/dL [facility] LABORATORY Comment: Diabetes: >=200 mg/dL plus symp toms BUN 27 (H) 10 - 20 mg/dL [facility] LABORATORY Creatinine 1.28 0.80 - 1.50 mg/dL [facility] LABORATORY Comment: Please note that the pediatric reference intervals supplied above were not validated at [facility]. Results from pediatri c patients should be interpreted in conjunction to the patient's age, height and muscle mass. Sodium 136 135 - 145 mmol/L [facility] LABORATORY Potassium 4.3 3.5 - 5.0 mmol/L [facility] LABORATORY Comment: Please note: ??Patients with WBC >100,00 0 may have falsely elevated Potassium levels. ??For accurate Potassium quantif ication in these patients send serum separator tube (gold top) for subsequent determinations. ??Contact the Clinical Chemistry Laboratory if there are any qu estions. Chloride 94 (L) 98 - 107 mmol/L [facility] LABORATORY CO2 27 22 - 31 mmol/L [facility] LABORATORY Anion Gap 15 5 - 15 mmol/L [facility] LABORATORY Calcium 9.1 8.5 - 10.5 mg/dL [facility] LABORATORY Estimated GFR 57 (L) >=60 [facility] LABORATORY Comment: This estimated GFR (eGFR) value was calc ulated using the MDRD equation which has been validated on patients between t he ages of 18 and 70. The MDRD should not be used to assess kidney function in patients < 18 years of age or in patients with extremes of body mass, or in patients with acute kidney failure. This value should be multiplied by 1.2 f or patients. For further information please copy and past e the following links into your internet browser. [email or web address] Specimen Anatomical Collection Method Collection Time Receive d Time (Source) Location / / Volume Laterality Blood specimen 09/04/2017 3:32 AM 017 4:08 (specimen) EDT AM EDT Resulting Agency Comment Spec In Lab Junito Apodaca MD CHEMISTRY ORDERABLES Performing Organization Address City/State/[place] [address] (ABNORMAL) APTT (09/03/2017 7:26 PM EDT) P athologist Signature PTT 83 (H) 25 - 35 sec [facility] LABORATORY Comment: The recommended therapeutic range for fu ll dose, unfractionated heparin at [facility] is 80 ? 114 seconds. The use of the anti-Xa (heparin) level rather than the PTT is recommended for monitoring anticoagul ation intensity in critically ill patients receiving unfractionated hepari n by continuous IV infusion. Specimen Anatomical Collection Method Collection Time Receive d Time (Source) Location / / Volume Laterality Blood specimen 09/03/2017 7:26 PM 017 7:52 (specimen) EDT PM EDT Resulting Agency Comment Spec In Lab Junito Apodaca MD HEMATOLOGY ORDERABLES Performing Organization Address City/[facility]/[place] [address] (ABNORMAL) APTT (09/03/2017 10:20 AM EDT) P athologist Signature PTT 88 (H) 25 - 35 sec [facility] LABORATORY Comment: The recommended therapeutic range for fu ll dose, unfractionated heparin at [facility] is 80 ? 114 seconds. The use of the anti-Xa (heparin) level rather than the PTT is recommended for monitoring anticoagul ation intensity in critically ill patients receiving unfractionated hepari n by continuous IV infusion. Specimen Anatomical Collection Method Collection Time Receive d Time (Source) Location / / Volume Laterality Blood specimen 09/03/2017 10:20 7 (specimen) AM EDT 10:24 AM EDT Resulting Agency Comment Spec In Lab Junito Apodaca MD HEMATOLOGY ORDERABLES Performing Organization Address City/[facility]/[place] [address] (ABNORMAL) APTT (09/03/2017 3:26 AM EDT) athologist Signature PTT 133 25 - 35 [facility] (Critical) [facility] LABORATORY Comment: Called by: andres, Read back by: Shakira frey, Date/Time:09/03/17 04:28. The recommended therapeutic range for fu ll dose, unfractionated heparin at [facility] is 80 ? 114 seconds. The use of the anti-Xa (heparin) level rather than the PTT is recommended for monitoring anticoagul ation intensity in critically ill patients receiving unfractionated hepari n by continuous IV infusion. Specimen Anatomical Collection Method Collection Time Receive d Time (Source) Location / / Volume Laterality Blood specimen 09/03/2017 3:26 AM 017 4:04 (specimen) EDT AM EDT Resulting Agency Comment Spec In Lab Junito Apodaca MD HEMATOLOGY ORDERABLES Performing Organization Address City/State/ZIP Code Phon e Number [address] Differential, Automated (09/03/2017 3:26 AM EDT) athologist Signature Neutrophils % 65.9 % [facility] LABORATORY Neutr Abs (ANC) 3.66 1.70 - [facility] 6.10 [facility] x10(3)/[facility] LABORATORY Lymphocytes % 18.6 % [facility] LABORATORY Lymphocytes Abs 1.0 0.9 - 3.2 [facility] x10(3)/[facility] LABORATORY Monocytes % 11.7 % [facility] LABORATORY Monocyte Abs 0.6 0.3 - 0.9 [facility] x10(3)/[facility] LABORATORY Eosinophils % 2.9 % [facility] LABORATORY Eosinophils Abs 0.2 0.0 - 0.4 [facility] x10(3)/[facility] LABORATORY Basophils % 0.5 % [facility] LABORATORY Basophils Abs 0.0 0.0 - 0.1 [facility] x10(3)/[facility] LABORATORY Immature Gran % 0.40 % [facility] LABORATORY Comment: Immature granulocytes(IG's)percentage an d absolute count will include metamyelocytes, myelocytes, and promyelo cytes. Blood smears from CBCs yielding IG's will be scanned manually for megha robles. If this scan disagrees with the automated IG or if promyelocytes are not ed, a manual differential will be performed. Cassie Gran Abs 0.02 0.00 - 0.04 x10(3)/[facility] LABORATORY Specimen Anatomical Collection Method Collection Time Receive d Time (Source) Location / / Volume Laterality Blood specimen 09/03/2017 3:26 AM 017 4:04 (specimen) EDT AM EDT Resulting Agency Comment Spec In Lab Junito Apodaca MD HEMATOLOGY ORDERABLES Performing Organization Address City/State/ZIP Code Phon e Number [place] [phone] (ABNORMAL) Hemogram (09/03/2017 3:26 AM EDT) Analysis Performed At Patho logist Time Signature WBC 5.6 4.0 - 9.5 [facility] x10(3)/[facility] LABORATORY RBC 4.41 (L) 4.58 - [facility] 5.54 [facility] x10(6)/[facility] LABORATORY Hemoglobin 13.6 (L) 13.7 - [facility] gm/dL [facility] LABORATORY Hematocrit 40.0 (L) 40.5 - [facility] 48.5 % [facility] LABORATORY MCV 90.7 82.9 - [facility] 93.1 [facility] LABORATORY MCH 30.8 27.5 - [facility] 32.1 pg [facility] LABORATORY MCHC 34.0 32.0 - [facility] 35.7 gm/dL [facility] LABORATORY Platelets 210 145 - 357 [facility] x10(3)/[facility] LABORATORY RDWSD 42.3 36.0 - [facility] 45.0 [facility] LABORATORY RDWCV 12.7 11.4 - [facility] 13.8 % [facility] LABORATORY MPV 11.1 7.6 - 12.9 [facility] LABORATORY nRBC % Auto 0.0 % [facility] LABORATORY nRBC Abs Auto 0.000 0.000 - [facility] 0.000 [facility] x10(3)/[facility] LABORATORY Specimen Anatomical Collection Method Collection Time Receive d Time (Source) Location / / Volume Laterality Blood specimen 09/03/2017 3:26 AM 017 4:04 (specimen) EDT AM EDT Resulting Agency Comment Spec In Lab Junito Apodaca MD HEMATOLOGY ORDERABLES Performing Organization Address City/[facility]/ZIP Code Phon e Number [address] (ABNORMAL) Prothrombin Time (09/03/2017 3:26 AM EDT) P athologist Signature PT 15.9 (H) 12.0 - 15.0 [facility] LABORATORY Comment: An INR <2.0 indicates adequate [...] be appropriate depending on c linical circumstances. INR 1.2 (H) 0.9 - 1.1 [facility] LABORATORY Specimen Anatomical Collection Method Collection Time Receive d Time (Source) Location / / Volume Laterality Blood specimen 09/03/2017 3:26 AM 017 4:04 (specimen) EDT AM EDT Resulting Agency Comment Spec In Lab Junito Apodaca MD HEMATOLOGY ORDERABLES Performing Organization Address City/[facility] [place] [address] Magnesium (09/03/2017 3:26 AM EDT) P athologist Signature Magnesium 0.89 0.69 - 1.07 [facility] mmol/L [facility] LABORATORY Specimen Anatomical Collection Method Collection Time Receive d Time (Source) Location / / Volume Laterality Blood specimen 09/03/2017 3:26 AM 017 4:04 (specimen) EDT AM EDT Resulting Agency Comment Spec In Lab Junito Apodaca MD CHEMISTRY ORDERABLES Performing Organization Address City/State/[place] [address] (ABNORMAL) Basic Metabolic Panel (non-fasting) (09/03/2017 3:26 AM EDT) athologist Signature Glucose Lvl 123 65 - 199 [facility] mg/dL [facility] LABORATORY Comment: Diabetes: >=200 mg/dL plus symp toms BUN 22 (H) 10 - 20 mg/dL [facility] LABORATORY Creatinine 1.30 0.80 - 1.50 mg/dL [facility] LABORATORY Comment: Please note that the pediatric reference intervals supplied above were not validated at [facility]. Results from pediatri c patients should be interpreted in conjunction to the patient's age, height and muscle mass. Sodium 139 135 - 145 mmol/L [facility] LABORATORY Potassium 4.0 3.5 - 5.0 mmol/L [facility] LABORATORY Comment: Please note: ??Patients with WBC >100,00 0 may have falsely elevated Potassium levels. ??For accurate Potassium quantif ication in these patients send serum separator tube (gold top) for subsequent determinations. ??Contact the Clinical Chemistry Laboratory if there are any qu estions. Chloride 98 98 - 107 mmol/L [facility] LABORATORY CO2 27 22 - 31 mmol/L [facility] LABORATORY Anion Gap 14 5 - 15 mmol/L [facility] LABORATORY Calcium 8.9 8.5 - 10.5 mg/dL [facility] LABORATORY Estimated GFR 56 (L) >=60 [facility] LABORATORY Comment: This estimated GFR (eGFR) value was calc ulated using the MDRD equation which has been validated on patients between t he ages of 18 and 70. The MDRD should not be used to assess kidney function in patients < 18 years of age or in patients with extremes of body mass, or in patients with acute kidney failure. This value should be multiplied by 1.2 f or patients. For further information please copy and past e the following links into your internet browser. [email or web address] Specimen Anatomical Collection Method Collection Time Receive d Time (Source) Location / / Volume Laterality Blood specimen 09/03/2017 3:26 AM 017 4:04 (specimen) EDT AM EDT Resulting Agency Comment Spec In Lab Junito Apodaca MD CHEMISTRY ORDERABLES Performing Organization Address City/[facility]/ZIP [facility] [place] [address] (ABNORMAL) Hepatic Function Panel (09/02/2017 3:41 AM EDT) P athologist Signature Total Protein 6.6 6.1 - 8.0 [facility] gm/dL [facility] LABORATORY Albumin 3.7 3.2 - 5.2 [facility] gm/dL [facility] LABORATORY AST 22 0 - 39 [facility] unit/L [facility] LABORATORY ALT 30 0 - 55 [facility] unit/L [facility] LABORATORY Alk Phos 39 (L) 40 - 120 [facility] unit/L [facility] LABORATORY Total 0.4 0.2 - 1.3 [facility] Bilirubin mg/dL [facility] LABORATORY Bili, Direct 0.1 0.0 - 0.3 [facility] mg/dL [facility] LABORATORY Specimen Anatomical Collection Method Collection Time Receive d Time (Source) Location / / Volume Laterality Blood specimen Venous Draw / 09/02/2017 3:41 AM 2016 4:06 (specimen) Unknown EDT AM EDT Resulting Agency Comment Spec In Lab Junito Apodaca MD CHEMISTRY ORDERABLES Performing Organization Address City/[facility] [place] [address] (ABNORMAL) APTT (09/02/2017 3:41 AM EDT) P athologist Signature PTT 99 (H) 25 - 35 sec [facility] LABORATORY Comment: The recommended therapeutic range for fu ll dose, unfractionated heparin at [facility] is 80 ? 114 seconds. The use of the anti-Xa (heparin) level rather than the PTT is recommended for monitoring anticoagul ation intensity in critically ill patients receiving unfractionated hepari n by continuous IV infusion. Specimen Anatomical Collection Method Collection Time Receive d Time (Source) Location / / Volume Laterality Blood specimen 09/02/2017 3:41 AM 017 4:03 (specimen) EDT AM EDT Resulting Agency Comment Spec In Lab Junito Apodaca MD HEMATOLOGY ORDERABLES Performing Organization Address City/State/ZIP Code Phon e Number [place] [phone]OS[address]ITAL LAB[address]ORY Drive Differential, Automated (09/02/2017 3:41 AM EDT) athologist Signature Neutrophils % 68.0 % [facility] LABORATORY Neutr Abs (ANC) 3.75 1.70 - [facility] 6.10 [facility] x10(3)/[facility] LABORATORY Lymphocytes % 18.5 % [facility] LABORATORY Lymphocytes Abs 1.0 0.9 - 3.2 [facility] x10(3)/[facility] LABORATORY Monocytes % 10.2 % [facility] Monocyte Abs 0.6 0.3 - 0.9 [facility] x10(3)/[facility] LABORATORY Eosinophils % 2.2 % [facility] LABORATORY Eosinophils Abs 0.1 0.0 - 0.4 [facility] x10(3)/[facility] LABORATORY Basophils % 0.9 % [facility] LABORATORY Basophils Abs 0.0 0.0 - 0.1 [facility] x10(3)/[facility] LABORATORY Immature Gran % 0.20 % [facility] LABORATORY Comment: Immature granulocytes(IG's)percentage an d absolute count will include metamyelocytes, myelocytes, and promyelo cytes. Blood smears from CBCs yielding IG's will be scanned manually for concor dance. If this scan disagrees with the automated IG or if promyelocytes are not ed, a manual differential will be performed. Cassie Gran Abs 0.01 0.00 - 0.04 x10(3)/[facility] LABORATORY Specimen Anatomical Collection Method Collection Time Receive d Time (Source) Location / / Volume Laterality Blood specimen 09/02/2017 3:41 AM 017 4:03 (specimen) EDT AM EDT Resulting Agency Comment Spec In Lab Junito Apodaca MD HEMATOLOGY ORDERABLES Performing Organization Address City/State/[place] [address] (ABNORMAL) Hemogram (09/02/2017 3:41 AM EDT) Analysis Performed At Patho logist Time Signature WBC 5.5 4.0 - 9.5 [facility] LABORATORY RBC 4.44 (L) 4.58 - [facility] 5.54 [facility] x10(6)/[facility] LABORATORY Hemoglobin 13.7 13.7 - [facility] gm/dL [facility] LABORATORY Hematocrit 39.9 (L) 40.5 - [facility] 48.5 % [facility] LABORATORY MCV 89.9 82.9 - [facility] 93.1 [facility] LABORATORY MCH 30.9 27.5 - [facility] 32.1 pg [facility] LABORATORY MCHC 34.3 32.0 - [facility] 35.7 gm/dL [facility] LABORATORY Platelets 209 145 - 357 [facility] x10(3)/[facility] LABORATORY RDWSD 42.3 36.0 - [facility] 45.0 [facility] LABORATORY RDWCV 12.8 11.4 - [facility] 13.8 % [facility] LABORATORY MPV 10.9 7.6 - 12.9 [facility] LABORATORY nRBC % Auto 0.0 % [facility] LABORATORY nRBC Abs Auto 0.000 0.000 - [facility] 0.000 [facility] x10(3)/[facility] LABORATORY Specimen Anatomical Collection Method Collection Time Receive d Time (Source) Location / / Volume Laterality Blood specimen 09/02/2017 3:41 AM 017 4:03 (specimen) EDT AM EDT Resulting Agency Comment Spec In Lab Junito Apodaca MD HEMATOLOGY ORDERABLES Performing Organization Address City/State/[place] [address] (ABNORMAL) Prothrombin Time (09/02/2017 3:41 AM EDT) P athologist Signature PT 15.2 (H) 12.0 - 15.0 [facility] LABORATORY Comment: An INR <2.0 indicates adequate [...] be appropriate depending on c linical circumstances. INR 1.2 (H) 0.9 - 1.1 [facility] LABORATORY Specimen Anatomical Collection Method Collection Time Receive d Time (Source) Location / / Volume Laterality Blood specimen 09/02/2017 3:41 AM 017 4:03 (specimen) EDT AM EDT Resulting Agency Comment Spec In Lab Junito Apodaca MD HEMATOLOGY ORDERABLES Performing Organization Address City/[facility]/ZIP Code Phon e Number [address] Magnesium (09/02/2017 3:41 AM EDT) athologist Signature Magnesium 0.96 0.69 - 1.07 [facility] mmol/L [facility] LABORATORY Specimen Anatomical Collection Method Collection Time Receive d Time (Source) Location / / Volume Laterality Blood specimen 09/02/2017 3:41 AM 017 4:03 (specimen) EDT AM EDT Resulting Agency Comment Spec In Lab Junito Apodaca MD CHEMISTRY ORDERABLES Performing Organization Address City/[facility]/ZIP [facility] [place] [address] (ABNORMAL) Basic Metabolic Panel (non-fasting) (09/02/2017 3:41 AM EDT) athologist [facility] Glucose Lvl 131 65 - 199 [facility] mg/dL [facility] LABORATORY Comment: Diabetes: >=200 mg/dL plus symp toms BUN 21 (H) 10 - 20 mg/dL [facility] LABORATORY Creatinine 1.10 0.80 - 1.50 mg/dL [facility] LABORATORY Comment: Please note that the pediatric reference intervals supplied above were not validated at [facility]. Results from pediatri c patients should be interpreted in conjunction to the patient's age, height and muscle mass. Sodium 138 135 - 145 mmol/L [facility] LABORATORY Potassium 4.3 3.5 - 5.0 mmol/L [facility] LABOR[facility]ORY Comment: Please note: ??Patients with WBC >100,00 0 may have falsely elevated Potassium levels. ??For accurate Potassium quantif ication in these patients send serum separator tube (gold top) for subsequent determinations. ??Contact the Clinical Chemistry Laboratory if there are any qu estions. Chloride 99 98 - 107 mmol/L [facility] LABORATORY CO2 26 22 - 31 mmol/L [facility]OR[facility] Anion Gap 13 5 - 15 mmol/L [facility]OR[facility] Calcium 8.6 8.5 - 10.5 mg/dL [facility] LABORATORY Estimated GFR >60 >=60 [facility] LABOR[facility]ORY Comment: This estimated GFR (eGFR) value was calc ulated using the MDRD equation which has been validated on patients between t he ages of 18 and 70. The MDRD should not be used to assess kidney function in patients < 18 years of age or in patients with extremes of body mass, or in patients with acute kidney failure. This value should be multiplied by 1.2 f or patients. For further information please copy and past e the following links into your internet browser. [email or web address] Specimen Anatomical Collection Method Collection Time Receive d Time (Source) Location / / Volume Laterality Blood specimen 09/02/2017 3:41 AM 017 4:03 (specimen) EDT AM EDT Resulting Agency Comment Spec In Lab Junito Apodaca MD CHEMISTRY ORDERABLES Performing Organization Address City/State/[place] [address] (ABNORMAL) APTT (09/01/2017 4:07 AM EDT) P athologist Signature PTT 96 (H) 25 - 35 sec [facility]OR[facility] Comment: Specimen drawn more than one hour prior to testing. ??Results may not be reliable for heparin monitoring. ??(May be falsely low) The recommended therapeutic range for fu ll dose, unfractionated heparin at [facility] is 80 ? 114 seconds. The use of the anti-Xa (heparin) level rather than the PTT is recommended for monitoring anticoagul ation intensity in critically ill patients receiving unfractionated hepari n by continuous IV infusion. Specimen Anatomical Collection Method Collection Time Receive d Time (Source) Location / / Volume Laterality Blood specimen 09/01/2017 4:07 AM 017 5:36 (specimen) EDT AM EDT Resulting Agency Comment Spec In Lab Junito Apodaca MD HEMATOLOGY ORDERABLES Performing Organization Address City/State/ZIP Code Phon e Number [place] [phone] Differential, Automated (09/01/2017 4:07 AM EDT) athologist Signature Neutrophils % 63.3 % [facility] LABOR[facility]ORY Neutr Abs (ANC) 3.15 1.70 - [facility] 6.10 [facility] x10(3)/[facility] LABORATORY Lymphocytes % 21.3 % [facility] LABORATORY Lymphocytes Abs 1.1 0.9 - 3.2 [facility] x10(3)/[facility] LABORATORY Monocytes % 11.2 % [facility] LABORATORY Monocyte Abs 0.6 0.3 - 0.9 [facility] x10(3)/[facility] LABORATORY Eosinophils % 3.4 % [facility] LABORATORY Eosinophils Abs 0.2 0.0 - 0.4 [facility] x10(3)/[facility] LABORATORY Basophils % 0.6 % [facility] LABORATORY Basophils Abs 0.0 0.0 - 0.1 [facility] x10(3)/[facility] LABORATORY Immature Gran % 0.20 % [facility] LABORATORY Comment: Immature granulocytes(IG's)percentage an d absolute count will include metamyelocytes, myelocytes, and promyelo cytes. Blood smears from CBCs yielding IG's will be scanned manually for concor dance. If this scan disagrees with the automated IG or if promyelocytes are not ed, a manual differential will be performed. Cassie Gran Abs 0.01 0.00 - 0.04 x10(3)/[facility] Y [facility] LABORATORY Specimen Anatomical Collection Method Collection Time Receive d Time (Source) Location / / Volume Laterality Blood specimen 09/01/2017 4:07 AM 017 4:39 (specimen) EDT AM EDT Resulting Agency Comment Spec In Lab Junito Apodaca MD HEMATOLOGY ORDERABLES Performing Organization Address City/State/[place] [address] (ABNORMAL) Hemogram (09/01/2017 4:07 AM EDT) Analysis Performed At Patho logist Time Signature WBC 5.0 4.0 - 9.5 [facility] x10(3)/[facility] LABORATORY RBC 4.36 (L) 4.58 - [facility] 5.54 [facility] x10(6)/[facility] LABORATORY Hemoglobin 13.4 (L) 13.7 - [facility] 16[facility] gm/dL [facility] LABORATORY Hematocrit 39.1 (L) 40.5 - [facility] 48.5 % [facility] LABORATORY MCV 89.7 82.9 - [facility] 93.1 [facility] LABORATORY MCH 30.7 27.5 - [facility]1 pg [facility] LABORATORY MCHC 34.3 32.0 - [facility] 35.7 gm/dL [facility] LABORATORY Platelets 205 145 - 357 [facility] x10(3)/[facility] LABORATORY RDWSD 42.9 36.0 - [facility] 45.0 [facility] LABORATORY RDWCV 13.0 11.4 - [facility] 13.8 % [facility] LABORATORY MPV 11.0 7.6 - 12.9 [facility] LABORATORY nRBC % Auto 0.0 % [facility] LABORATORY nRBC Abs Auto 0.000 0.000 - [facility] 0.000 [facility] x10(3)/[facility] LABORATORY Specimen Anatomical Collection Method Collection Time Receive d Time (Source) Location / / Volume Laterality Blood specimen 09/01/2017 4:07 AM 017 4:39 (specimen) EDT AM EDT Resulting Agency Comment Spec In Lab Junito Apodaca MD HEMATOLOGY ORDERABLES Performing Organization Address City/[facility]/[place] [address] (ABNORMAL) Prothrombin Time (09/01/2017 4:07 AM EDT) P athologist Signature PT 15.6 (H) 12.0 - 15.0 [facility] LABORATORY Comment: An INR <2.0 indicates adequate [...] be appropriate depending on c linical circumstances. INR 1.2 (H) 0.9 - 1.1 [facility] LABORATORY Specimen Anatomical Collection Method Collection Time Receive d Time (Source) Location / / Volume Laterality Blood specimen 09/01/2017 4:07 AM 017 4:39 (specimen) EDT AM EDT Resulting Agency Comment Spec In Lab Junito Apodaca MD HEMATOLOGY ORDERABLES Performing Organization Address City/[facility]/[place]IP [place] [address] Magnesium (09/01/2017 4:07 AM EDT) P athologist Signature Magnesium 0.81 0.69 - 1.07 [facility] mmol/L [facility] LABORATORY Specimen Anatomical Collection Method Collection Time Receive d Time (Source) Location / / Volume Laterality Blood specimen 09/01/2017 4:07 AM 017 4:39 (specimen) EDT AM EDT Resulting Agency Comment Spec In Lab Junito Apodaca MD CHEMISTRY ORDERABLES Performing Organization Address City/[facility]/[place]IP [place] [address] (ABNORMAL) Basic Metabolic Panel (non-fasting) (09/01/2017 4:07 AM EDT) P athologist Signature Glucose Lvl 115 65 - 199 [facility] mg/dL [facility] LABORATORY Comment: Diabetes: >=200 mg/dL plus symp toms BUN 19 10 - 20 mg/dL [facility] LABORATORY Creatinine 0.97 0.80 - 1.50 mg/dL [facility] LABORATORY Comment: Please note that the pediatric reference intervals supplied above were not validated at [facility]. Results from pediatri c patients should be interpreted in conjunction to the patient's age, height and muscle mass. Sodium 140 135 - 145 mmol/L [facility] LABORATORY Potassium 3.6 3.5 - 5.0 mmol/L [facility] LABOR[facility] Comment: Please note: ??Patients with WBC >100,00 0 may have falsely elevated Potassium levels. ??For accurate Potassium quantif ication in these patients send serum separator tube (gold top) for subsequent determinations. ??Contact the Clinical Chemistry Laboratory if there are any qu estions. Chloride 102 98 - 107 mmol/L [facility] LABORATORY CO2 24 22 - 31 mmol/L [facility] LABORATORY Anion Gap 14 5 - 15 mmol/L [facility] LABORATORY Calcium 8.2 (L) 8.5 - 10.5 mg/dL [facility] LABORATORY Estimated GFR >60 >=60 [facility] Comment: This estimated GFR (eGFR) value was calc ulated using the MDRD equation which has been validated on patients between t he ages of 18 and 70. The MDRD should not be used to assess kidney function in patients < 18 years of age or in patients with extremes of body mass, or in patients with acute kidney failure. This value should be multiplied by 1.2 f or patients. For further information please copy and past e the following links into your internet browser. [email or web address] Specimen Anatomical Collection Method Collection Time Receive d Time (Source) Location / / Volume Laterality Blood specimen 09/01/2017 4:07 AM 017 4:39 (specimen) EDT AM EDT Resulting Agency Comment Spec In Lab Junito Apodaca MD CHEMISTRY ORDERABLES Performing Organization Address City/[facility]/[place] [address] SCAN DOC: ECHO (09/01/2017 12:00 AM EDT) Narrative 09/01/2017 12:00 AM EDT This result has an attachment that is no t available. Ordered by an unspecified provider. Scanning Provider MEDIA MGR SCAN EXT ORDR/RSLT (ABNORMAL) Prothrombin Time (08/31/2017 3:10 PM EDT) P athologist Signature PT 15.2 (H) 12.0 - 15.0 [facility] LABORATORY Comment: An INR <2.0 indicates adequate [...] be appropriate depending on c linical circumstances. INR 1.2 (H) 0.9 - 1.1 [facility] LABORATORY Specimen Anatomical Collection Method Collection Time Receive d Time (Source) Location / / Volume Laterality Blood specimen Venous Draw / 08/31/2017 3:10 PM 2016 3:20 (specimen) Unknown EDT PM EDT Resulting Agency Comment Spec In Lab Junito Apodaca MD HEMATOLOGY ORDERABLES Performing Organization Address City/[facility]/[place] [address] (ABNORMAL) APTT (08/31/2017 3:10 PM EDT) P athologist Signature PTT 88 (H) 25 - 35 sec [facility] LABORATORY Comment: The recommended therapeutic range for fu ll dose, unfractionated heparin at [facility] is 80 ? 114 seconds. The use of the anti-Xa (heparin) level rather than the PTT is recommended for monitoring anticoagul ation intensity in critically ill patients receiving unfractionated hepari n by continuous IV infusion. Specimen Anatomical Collection Method Collection Time Receive d Time (Source) Location / / Volume Laterality Blood specimen 08/31/2017 3:10 PM 017 3:20 (specimen) EDT PM EDT Resulting Agency Comment Spec In Lab Junito Apodaca MD HEMATOLOGY ORDERABLES Performing Organization Address City/State/[place]IP [place] [address] ECHOCARDIOGRAM COMPLETE (08/31/2017 11:34 AM EDT) P athologist Signature EF 31 [facility] Specimen (Source) Anatomical Location Collection Method / Collectio n Time Received Time / Laterality Volume 08/31/2017 Narrative [facility] - 08/31/2017 12:21 PM ED T Procedure: ?Transthoracic Echocardiogram Patient: ?PAMELA HANEY ? (Age): 1955(62y) Med Rec#: ? [id number] ?Sex: ?M ? Site Loc: ? [facility] ?Ht / Wt: ??175(cm)/74(kg) Pt. Loc: ?Adult Floor ? BSA: ?1.89 Study Date: ?? 08/31/2017 ?Pt. Type: Inpatient Tape: ? Referring: Junito Apodaca ([id number]) Referring: TIAGO Reading: Aron Flores ([id number]) Campground Caretaker: Jodee Bates Diagnosis: *ICD-10-PCS Acute systolic (congestive) heart failure (I50.21) BP: ? 137/84 SUMMARY: 1. The left ventricle is severely dilate d.(by enddiastolic volume index based on biplane MOD, within normal limi ts by traditionally used LVEDd). Severe concentric left ventricular hyper trophy is observed. There is no evidence of LVOT obstruction. Global lef t ventricular systolic function is moderately reduced. The quantitative left ventricular ejection fraction by biplane Walker's method is 31%. There are left ventricular segmental wall motion abnormalities pres ent, as shown in the diagram below. The ??basal anteroseptal, and ??m id anteroseptal wall segments are dyskinetic (score 4). The ??basal inferi or, basal inferoseptal, mid inferior, mid inferoseptal, apical septa l, and ??apical inferior wall segments are akinetic (score 3). The ??m id anterior, mid anterolateral, mid inferolateral, apical anterior, and ??apical lateral wall segments are hypokinetic (score 2). 2. The left atrium is severely dilated. 3. The right ventricle is normal in size . Right ventricular global systolic function is moderately reduced. The estimated pulmonary artery systolic pressure is 37 mmHg. 4. 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 The mean/peak tr ans-valvular gradient across the aortic valve is 23/41 mmHg, DOI (VTI ) 0.21, suggesting stenosis of the aortic prosthesis, calculated valve area (VTI) 0.7 cm2. Moderate (2+/4+) aortic valve prosthesis regurgit ation is present. 5. A bovine bio-prosthetic mitral valve is present. The mean gradient across the mitral valve is 6 mmHg @ 95 b pm. There is a trace amount of mitral prosthesis regurgitation. 6. There is mild to moderate (1-2+/4+) t ricuspid regurgitation present. 7. No prior study is available for side by side comparison. Findings ? : Left Ventricle: ? The left ventricle is severely dilated.(by enddiastolic volume index based on bipla ne MOD, within normal limits by traditionally used LVEDd). ?Severe concentric left ventricular hypertrophy is observed. ?There is no evidence of LVOT obstr uction. ?No ventricular septal defect is vi sualized. ?Global left ventricular systolic f unction is moderately reduced. ?The quantitative left ventricular ejection fraction by biplane Walker's method is 31%. ?There are left ventricular segment al wall [...] size. ?Right ventricular global systolic function is moderately reduced. ?The estimated pulmonary artery sys tolic pressure is 37 mmHg. ?The estimated right atrial pressur e is 8 mmHg. Right Atrium: ? The right atrium is mildly dilated. Aortic Valve: ? The peak instantaneo us trans-valvular gradient across the aortic valve is 41 mmHg. ?The mean trans-valvular gradient a cross ??the aortic valve is 23 mmHg. ?The calculated aortic valve area i s 0.8 cm2. ?The size of the prosthetic aortic [...] gradient across the gregoria l valve is 6 mmHg. @ 95 bpm. ?The size of the prosthetic mitral [...] tricuspid annular calcifi cation. ?There is mild to moderate (1-2+/4+ ) tricuspid regurgitation present. Pulmonic Valve: ? The pulmonic valve appears normal in structure and function. Pericardium: ? The pericardium appea rs normal and there is no evidence of a pericardial effusion. Aorta: ? The aortic root is normal i n size. ?There is moderate dilatation of th e ascending aorta. ?There is mild dilatation of the ao rtic arch. Pulmonary Artery: ? The main pulmona ry artery appears normal. Venous: ? The inferior vena cava jody ears normal in size. ?There is less than 50% respiratory change in the inferior vena cava dimension consistent with elevated right atrial pressure. Misc: ? There is no hemodynamically significant valve disease. ?Two-dimensional echo, spectral Dop pler and color Doppler performed. ?Myocardial Strain Imaging Chambers 2D ?Value ?Units (Range) ? IVSd (2D) ? 2 ?cm ? LVPWd (2D) ?1.6 ?cm ? IVS:LVPW ratio (2D) 1.2 ?ratio ? RWT (2D) ?0.7 ?ratio ? RWT PW (2D) ? 0.6 ?ratio ? LVIDd (2D) ?5.5 ?cm ? LVIDs (2D) ?4.9 ?cm ? LVIDd (2D) index ?2.9 ?cm/m2 ? LVIDs (2D) index ?2.6 ?cm/m2 ? LV FS (2D) ?12 ? % ? EF Teichholz (2D) ?? 25 ? % ? Ao root diameter (2D3.5 ?cm (2.1 - 3.6) ? Ascending Ao ?4.2 ?cm (2 - 3.5) ? Volumes/Mass ?Value ?Units (Range) ? LA Area 4 CH ?47.3 ? cm2 (<21) ? LA ESV BP (A/L) asri322.8 ? ml/m2 ? RA AREA 4CH ? 21.7 ? cm2 ? LV ESV SP 4CH (MOD) 161.2 ? ml ? LV ESV SP 2CH (MOD) 130.8 ? ml ? LV EDV BP ? 216.6 ?ml ? LV ESV BP ? 148.7 ?ml ? LV EDV BP index ? 114.6 ?ml/m2 ? LV ESV BP index ? 78.7 ? ml/m2 ? BP EF (MOD) ? 31 ? % ? LV mass (2D) ?483.9 ?g ? LV mass (2D) index ??256.1 ?g/m2 ? Diastolic/Systolic Function ?Value ?Units (Range) ? MV E-wave Vmax ?1.4 ?m/sec ? LV septal e' Vmax ?? 0.1 ?m/sec ? LV lateral e' Vmax ??0.1 ?m/sec ? LV average e' Vmax ??0.1 ?m/sec ? LV E:e' septal ratio28.4 ? ratio ? LV E:e' lateral rati20.3 ? ratio ? LV average E:e' rati23.7 ? ratio ? Aortic Valve ?Value ?Units (Range) ? AV Vmax ? 3.2 ?m/sec ? AV VTI ?51.7 ? cm ? AV peak gradient ?41 ? mmHg ? AV mean gradient ?23 ? mmHg ? LVOT diameter ? 2.1 ?cm ? LVOT Vmax ? 0.8 ?m/sec ? LVOT VTI ?10.8 ? cm ? LVOT peak gradient ??2.5 ?mmHg ? LVOT mean gradient ??1.5 ?mmHg ? DOI (VTI) ? 0.2 ?ratio ? DOI (Vmax) ?0.3 ?ratio ? SV LVOT ? 37.1 ? ml ? CO LVOT ? 3.5 ?l/min ? Cardiac index ? 1.9 ?l/min/m2 ? AMAURY (continuity Vmax0.8 ?cm2 ? AMAURY (continuity Vmax0.5 ?cm2/m2 ? AMAURY (continuity VTI)0.7 ?cm ? AMAURY (continuity VTI)0.4 ?cm2/m2 ? Mitral Valve ?Value ?Units (Range) ? MV Vmax ? 1.7 ?m/sec ? MV VTI ?30.7 ? cm ? MV peak gradient ?12 ? mmHg ? MV mean gradient ?6 ?mmHg ? MVA (continuity VTI)1.2 ?cm2 ? Tricuspid Valve ?Value ?Units (Range) ? TR Vmax ? 2.7 ?m/sec ? TR peak gradient ?28.9 ? mmHg ? RAP ? 8 ?mmHg ? RVSP ?37 ? mmHg ? Wall Motion: Segment Name ?Rest ? Base-Anteroseptal ?? Dyskinetic ? Base-Anterior ? Normal ? Base-Anterolateral ??Normal ? Base-Posterolateral Normal ? Base-Inferior ? Akinetic ? Base-Inferoseptal ?? Akinetic ? Mid-Anteroseptal ?Dyskinetic ? Mid-Anterior ?Hypokinetic ? Mid-Anterolateral ?? Hypokinetic ? Mid-Posterolateral ??Hypokinetic ? Mid-Inferior ?Akinetic ? Mid-Inferoseptal ?Akinetic ? Aurora-Septal ? Akinetic ? Aurora-Anterior ? Hypokinetic ? Aurora-Lateral ?Hypokinetic ? Aurora-Inferior ? Akinetic ? Aurora-Tip ?Hypokinetic ? This report has been electronically sign ed by: _ Aron Flores MD ? 08/31/2017 12:20 :58 Images reviewed and interpretation enrique brunson [facility] Cardiac Ultrasound Laboratory Procedure Note Aron Flores MD - 08/31/2017Formjana de la vega of this note might be different from the original. Procedure: Transthoracic Echocardiogram Patient: PAMELA HUTTON(Age): [birth year][age]y) Med Rec#: [id number] Sex: M Site Loc: [facility] Ht / Wt: 175(cm)/74(kg) Pt. Loc: Adult Floor BSA: 1.89 Study Date: 08/31/2017 Pt. Type: Inpatie nt Tape: Referring: Junito Apodaca ([id number]) Referring: STRANATHANCHRISTOPHER Reading: Aron Flores ([id number]) Campground Caretaker: Jodee Bates Diagnosis: *ICD-10-PCS Acute systolic (congestive) heart failure (I50.21) BP: 137/84 SUMMARY: 1. The left ventricle is severely dilate d.(by enddiastolic volume index based on biplane MOD, within normal limi ts by traditionally used LVEDd). Severe concentric left ventricular hyper trophy is observed. There is no evidence of LVOT obstruction. Global lef t ventricular systolic function is moderately reduced. The quantitative left ventricular ejection fraction by biplane Walker's method is 31%. There are left ventricular segmental wall motion abnormalities pres ent, as shown in the diagram below. The basal anteroseptal, and mid a nteroseptal wall segments are dyskinetic (score 4). The basal inferior , basal inferoseptal, mid inferior, mid inferoseptal, apical septa l, and apical inferior wall segments are akinetic (score 3). The mid anterior, mid anterolateral, mid inferolateral, apical anterior, and apical lateral wall segments are hypokinetic (score 2). 2. The left atrium is severely dilated. 3. The right ventricle is normal in size . Right ventricular global systolic function is moderately reduced. The estimated pulmonary artery systolic pressure is 37 mmHg. 4. 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 The mean/peak tr ans-valvular gradient across the aortic valve is 23/41 mmHg, DOI (VTI ) 0.21, suggesting stenosis of the aortic prosthesis, calculated valve area (VTI) 0.7 cm2. Moderate (2+/4+) aortic valve prosthesis regurgit ation is present. 5. A bovine bio-prosthetic mitral valve is present. The mean gradient across the mitral valve is 6 mmHg @ 95 b pm. There is a trace amount of mitral prosthesis regurgitation. 6. There is mild to moderate (1-2+/4+) t ricuspid regurgitation present. 7. No prior study is available for side by side comparison. Findings : Left Ventricle: The left ventricle is se verely dilated.(by enddiastolic volume index based on bipla ne MOD, within normal limits by traditionally used LVEDd). Severe concentric left ventricular hype rtrophy is observed. There is no evidence of LVOT obstructio n. No ventricular septal defect is visuali zed. Global left ventricular systolic functi on is moderately reduced. The quantitative left ventricular eject ion fraction by biplane Walker's method is 31%. There are left ventricular segmental wa ll [...] Right ventricular global systolic funct ion is moderately reduced. The estimated pulmonary artery systolic pressure is 37 mmHg. The estimated right atrial pressure is 8 mmHg. Right Atrium: The right atrium is mildly dilated. Aortic Valve: The peak instantaneous tra ns-valvular gradient across the aortic valve is 41 mmHg. The mean trans-valvular gradient across the aortic valve is 23 mmHg. The calculated aortic valve area is 0.8 cm2. The size of the prosthetic aortic [...] gradient across the mitral michael ve is 6 mmHg. @ 95 bpm. The size of the prosthetic mitral valve is 35mm. The prosthetic mitral valve was implant ed on 01/19/2014. A bovine bio-prosthetic mitral valve is present. The bio-prosthetic mitral valve leaflet s are normal. There is a trace amount of mitral prost hesis regurgitation. Tricuspid Valve: The tricuspid valve oscar flets are morphologically normal. There is tricuspid annular calcificatio n. There is mild to moderate (1-2+/4+) tri cuspid regurgitation present. Pulmonic Valve: The pulmonic valve appea rs normal in structure and function. Pericardium: The pericardium appears nor mal and there is no evidence of a pericardial effusion. Aorta: The aortic root is normal in size . There is moderate dilatation of the asc ending aorta. There is mild dilatation of the aortic arch. Pulmonary Artery: The main pulmonary art santos appears normal. Venous: The inferior vena cava appears n ormal in size. There is less than 50% respiratory andersen ge in the inferior vena cava dimension consistent with elevated right atrial pressure. Misc: There is no hemodynamically signif icant valve disease. Two-dimensional echo, spectral Doppler and color Doppler performed. Myocardial Strain Imaging Chambers 2D Value Units (Range) IVSd (2D) 2 cm LVPWd (2D) 1.6 cm IVS:LVPW ratio (2D) 1.2 ratio RWT (2D) 0.7 ratio RWT PW (2D) 0.6 ratio LVIDd (2D) 5.5 cm LVIDs (2D) 4.9 cm LVIDd (2D) index 2.9 cm/m2 LVIDs (2D) index 2.6 cm/m2 LV FS (2D) 12 % EF Teichholz (2D) 25 % Ao root diameter (2D3.5 cm (2.1 - 3.6) Ascending Ao 4.2 cm (2 - 3.5) Volumes/Mass Value Units (Range) LA Area 4 CH 47.3 cm2 (<21) LA ESV BP (A/L) kxiu457.8 ml/m2 RA AREA 4CH 21.7 cm2 LV ESV SP 4CH (MOD) 161.2 ml LV ESV SP 2CH (MOD) 130.8 ml LV EDV BP 216.6 ml LV ESV BP 148.7 ml LV EDV BP index 114.6 ml/m2 LV ESV BP index 78.7 ml/m2 BP EF (MOD) 31 % LV mass (2D) 483.9 g LV mass (2D) index 256.1 g/m2 Diastolic/Systolic Function Value Units (Range) MV E-wave Vmax 1.4 m/sec LV septal e' Vmax 0.1 m/sec LV lateral e' Vmax 0.1 m/sec LV average e' Vmax 0.1 m/sec LV E:e' septal ratio28.4 ratio LV E:e' lateral rati20.3 ratio LV average E:e' rati23.7 ratio Aortic Valve Value Units (Range) AV Vmax 3.2 m/sec AV VTI 51.7 cm AV peak gradient 41 mmHg AV mean gradient 23 mmHg LVOT diameter 2.1 cm LVOT Vmax 0.8 m/sec LVOT VTI 10.8 cm LVOT peak gradient 2.5 mmHg LVOT mean gradient 1.5 mmHg DOI (VTI) 0.2 ratio DOI (Vmax) 0.3 ratio SV LVOT 37.1 ml CO LVOT 3.5 l/min Cardiac index 1.9 l/min/m2 AMAURY (continuity Vmax0.8 cm2 AMAURY (continuity Vmax0.5 cm2/m2 AMAURY (continuity VTI)0.7 cm AMAURY (continuity VTI)0.4 cm2/m2 Mitral Valve Value Units (Range) MV Vmax 1.7 m/sec MV VTI 30.7 cm MV peak gradient 12 mmHg MV mean gradient 6 mmHg MVA (continuity VTI)1.2 cm2 Tricuspid Valve Value Units (Range) TR Vmax 2.7 m/sec TR peak gradient 28.9 mmHg RAP 8 mmHg RVSP 37 mmHg Wall Motion: Segment Name Rest Base-Anteroseptal Dyskinetic Base-Anterior Normal Base-Anterolateral Normal Base-Posterolateral Normal Base-Inferior Akinetic Base-Inferoseptal Akinetic Mid-Anteroseptal Dyskinetic Mid-Anterior Hypokinetic Mid-Anterolateral Hypokinetic Mid-Posterolateral Hypokinetic Mid-Inferior Akinetic Mid-Inferoseptal Akinetic Aurora-Septal Akinetic Aurora-Anterior Hypokinetic Aurora-Lateral Hypokinetic Aurora-Inferior Akinetic Aurora-Tip Hypokinetic This report has been electronically sign ed by: _ Aron Flores MD 08/31/2017 12:20:58 Images reviewed and interpretation vertulio ied [facility] Cardiac Ultrasound Laboratory Junito Apodaca MD ECHO ORDERABLES Performing Organization Address City/State/ZIP Code Phon e Number HEARTLAB SYSTEM EKG 12 Lead (08/31/2017 9:54 AM EDT) Component Value Ref Range Test Analysis Performed Pathologis t Method Time At Signature Ventricular rate 98 BPM MUSE SYSTEM Atrial Rate 89 BPM MUSE SYSTEM P-R Interval 208 ms MUSE SYSTEM QRS Duration 168 ms MUSE SYSTEM Q-T Interval 436 ms MUSE SYSTEM QTC Calculated 556 ms MUSE SYSTEM (Bezet) Calculated R [place] -54 degrees MUSE SYSTEM Calculated T [place] 88 degrees MUSE SYSTEM INTERPRETATION Sinus rhythm with MUSE SY STEM Cannot rule out Atrial flutter with variable A-V block Left axis deviation Left bundle branch block Abnormal ECG When compared with ECG of 30-AUG-2017 22:10, (unconfirmed) Premature ventricular complexes are now Present Premature atrial complexes are now Present Confirmed by MD Ketan, Rudolph ([id number]) on 08/31/2017 11:46: 01 AM Specimen Anatomical Collection Method Collection Time Receive d Time (Source) Location / / Volume Laterality 08/31/2017 9:54 AM 7 EDT 11:46 AM EDT Junito Apodaca MD ECG ORDERABLES Performing Organization Address City/[facility] Phon e Number MUSE SYSTEM (ABNORMAL) APTT (08/31/2017 6:40 AM EDT) P athologist Signature PTT 104 (H) 25 - 35 sec [facility] Comment: The recommended therapeutic range for fu ll dose, unfractionated heparin at [facility] is 80 ? 114 seconds. The use of the anti-Xa (heparin) level rather than the PTT is recommended for monitoring anticoagul ation intensity in critically ill patients receiving unfractionated hepari n by continuous IV infusion. Specimen Anatomical Collection Method Collection Time Receive d Time (Source) Location / / Volume Laterality Blood specimen 08/31/2017 6:40 AM 017 7:07 (specimen) EDT AM EDT Resulting Agency Comment Spec In Lab Junito Apodaca MD HEMATOLOGY ORDERABLES Performing Organization Address City/[facility]/ZIP Code Phon e Number [address] Magnesium (08/31/2017 6:40 AM EDT) athologist Signature Magnesium 0.96 0.69 - 1.07 [facility] mmol/L [facility] Specimen Anatomical Collection Method Collection Time Receive d Time (Source) Location / / Volume Laterality Blood specimen 08/31/2017 6:40 AM 017 7:07 (specimen) EDT AM EDT Resulting Agency Comment Spec In Lab Junito Apodaca MD CHEMISTRY ORDERABLES Performing Organization Address City/[facility] [place] [address] Basic Metabolic Panel (non-fasting) (08/31/2017 6:40 AM EDT) athologist Signature Glucose Lvl 105 65 - 199 [facility] mg/dL [facility] Comment: Diabetes: >=200 mg/dL plus symp toms BUN 20 10 - 20 mg/dL [facility] Creatinine 1.10 0.80 - 1.50 mg/dL [facility] Comment: Please note that the pediatric reference intervals supplied above were not validated at [facility]. Results from pediatri c patients should be interpreted in conjunction to the patient's age, height and muscle mass. Sodium 139 135 - 145 mmol/L [facility] Potassium 3.6 3.5 - 5.0 mmol/L [facility] Comment: Please note: ??Patients with WBC >100,00 0 may have falsely elevated Potassium levels. ??For accurate Potassium quantif ication in these patients send serum separator tube (gold top) for subsequent determinations. ??Contact the Clinical Chemistry Laboratory if there are any qu estions. Chloride 99 98 - 107 mmol/L [facility] CO2 26 22 - 31 mmol/L [facility] Anion Gap 14 5 - 15 mmol/L [facility] Calcium 8.8 8.5 - 10.5 mg/dL [facility] Estimated GFR >60 >=60 [facility] Comment: This estimated GFR (eGFR) value was calc ulated using the MDRD equation which has been validated on patients between t he ages of 18 and 70. The MDRD should not be used to assess kidney function in patients < 18 years of age or in patients with extremes of body mass, or in patients with acute kidney failure. This value should be multiplied by 1.2 f or patients. For further information please copy and past e the following links into your internet browser. [email or web address] [email or web address] Specimen Anatomical Collection Method Collection Time Receive d Time (Source) Location / / Volume Laterality Blood specimen 08/31/2017 6:40 AM 017 7:07 (specimen) EDT AM EDT Resulting Agency Comment Spec In Lab Junito Apodaca MD CHEMISTRY ORDERABLES Performing Organization Address City/State/[place] [address] Hemoglobin A1c (08/31/2017 6:40 AM EDT) athologist Signature Hemoglobin A1C 5.0 4.3 - 5.6 [facility] Comment: Reference Range: 4.3 - [...] Mellitus, Diabetes Care 2013; 36: Suppl. 1, S67-43 Est Avg Gluc 97 mg/dL [facility] Comment: eAG equivalents for HbA1c percentages: HbA1c(%) ?eAG(mg/dL) 6.0 ?126 6.5 ?140 7.0 ?154 7.5 ?169 8.0 ?183 8.5 ?197 9.0 ?212 9.5 ?226 10.0 ? 240 Limitations: The eAG calculation has not been validated on women, individuals below 18 years old and above 70 years old, and individuals with hemoglobinopathies. Additional resources are available on [facility] ADA website. Leon TRIVEDI, Dalton J, Argelia R, et al. ??Tr anslating the A1C assay into estimated average glucose values. ??Diabetes Care 2008:31(8):0139-1422. Specimen Anatomical Collection Method Collection Time Receive d Time (Source) Location / / Volume Laterality Blood specimen 08/31/2017 6:40 AM 017 7:07 (specimen) EDT AM EDT Resulting Agency Comment Spec In Lab Junito Apodaca MD CHEMISTRY ORDERABLES Performing Organization Address City/State/[place] [address] LDL Cholesterol, Direct (08/31/2017 6:40 AM EDT) athologist Signature LDL Chol 84 <=190 [place] mg/dL [facility] Specimen Anatomical Collection Method Collection Time Receive d Time (Source) Location / / Volume Laterality Blood specimen 08/31/2017 6:40 AM 017 7:07 (specimen) EDT AM EDT Resulting Agency Comment Spec In Lab Junito Apodaca MD CHEMISTRY ORDERABLES Performing Organization Address City/State/ZIP [place] [address] HDL/Cholesterol Profile (08/31/2017 6:40 AM EDT) [facility] Method Time Signature Chol, Total 137 <=239 [place] mg/dL [facility] HDL 53 >=40 [place] mg/dL [facility] Chol/HDL Ratio 2.6 ratio [facility] Chol/HDL See Note [place] Interpretation [facility] Comment: Lipid management should be guided by a p atient? s ASCVD risk, goals and preferences. ACC/AHA Guidelines recommend high intens ity statin if clinical ASCVD or LDL greater than or equal to 190 mg/dL. http://iSTAR.Lendinero/TGS-OMU-Knnywrkhl Measure LDL if Total Cholesterol minus H DL Cholesterol is greater than 220 mg/dL. Adults aged 40-75 with LDL 70-189 mg/dL should have their 10 year ASCVD risk estimated with the ACC/AHA ASCVD risk es timator http://tools.acc.org/NFUFC-Cnxd-Dpfhhcck r/ Statin should be discussed if risk [...] Location / / Volume Laterality Blood specimen 08/31/2017 6:40 AM 017 7:07 (specimen) EDT AM EDT Resulting Agency Comment Spec In Lab Junito Apodaca MD CHEMISTRY ORDERABLES Performing Organization Address City/State/ZIP Code Phon e Number [place] [id number] CT Carotids & [place] w Contrast (08/31/2017 1:22 AM EDT) Anatomical Region Laterality Modality Neck, Head Computed Tomography Specimen (Source) Anatomical Location Collection Method / Collectio n Time Received Time / Laterality Volume Impressions 08/31/2017 4:04 AM EDT 1. ??Normal CT of the head and neck with no critical stenosis, abrupt occlusion, or dissection. 2. 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 I have personally reviewed the image(s) and the residents interpretation and agree with the findings, Pricila Rutledge at 08/31/2017 4:04 AM Narrative 08/31/2017 4:04 AM EDT EXAMINATION: CT CAROTIDS AND [place] OF [place] W CONTRAST CLINICAL HISTORY: Right frontal stroke o n CT scan TECHNIQUE: CTA of the carotids and habematolel of [place] was performed after intravenous administration of 65 cc Omnipaque 350. M aximal intensity projection reformats were performed on a separate workstation . COMPARISON: CT head 08/30/2017 FINDINGS: CTA habematolel of [place]: There are calcific ations within the petrous and cavernous segments of the bilateral internal carot id arteries without flow limiting stenosis. The bilateral middle cerebral arteries, anterior cerebral arteries, and there major branches are also patent . Specifically, there is no abrupt occlusion identified in the region of hy perdensity within the right frontal lobe. There is a normal anterior communicating complex. The right posterior communicating artery is patent. The left posterior communicating artery is diminutive or absent. The basilar artery, bilateral posterior cerebral arteries, and major branches are patent. The superior cerebellar giovana clinton are patent. A small left AICA and diminutive right AICA are noted. The int radural segments of both vertebral arteries are patent. Both posterior infe rior cerebellar arteries are patent. 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 Conventional t hree-vessel configuration of the aortic arch. No stenosis of the origin of the g reat vessels. The right common carotid artery are norm al in course and caliber without stenosis. There is calcified and noncalc ified plaque at the bulb region and proximal internal carotid artery without hemodynamically significant stenosis. The left common carotid artery are anusha l in course and caliber without stenosis. There is calcified and noncalc ified plaque at the bulb region and proximal internal carotid artery without clinically significant stenosis. Codominant vertebral arteries. Normal or igin of both vertebral arteries, which are normal in course and caliber without stenosis. Other: Unchanged focal hypoattenuation i n the right frontal lobe. Partially imaged right pleural effusion with intrafissural fluid in the major fissure and associated atelectasis. Procedure Note Pricila Rutledge MD - 08/31/2017 EXAMINATION: CT CAROTIDS AND [place] OF [place] W CONTRAST CLINICAL HISTORY: Right frontal stroke o n CT scan TECHNIQUE: CTA of the carotids and habematolel of [place] was performed after intravenous administration of 65 cc Omnipaque 350. M aximal intensity projection reformats were performed on a separate workstation . COMPARISON: CT head 08/30/2017 FINDINGS: CTA habematolel of [place]: There are calcific ations within the petrous and cavernous segments of the bilateral internal carot id arteries without flow limiting stenosis. The bilateral middle cerebral arteries, anterior cerebral arteries, and there major branches are also patent . Specifically, there is no abrupt occlusion identified in the region of hy perdensity within the right frontal lobe. There is a normal anterior communicating complex. The right posterior communicating artery is patent. The left posterior communicating artery is diminutive or absent. The basilar artery, bilateral posterior cerebral arteries, and major branches are patent. The superior cerebellar giovana clinton are patent. A small left AICA and diminutive right AICA are noted. The int radural segments of both vertebral arteries are patent. Both posterior infe rior cerebellar arteries are patent. 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 Conventional t hree-vessel configuration of the aortic arch. No stenosis of the origin of the g reat vessels. The right common carotid artery are norm al in course and caliber without stenosis. There is calcified and noncalc ified plaque at the bulb region and proximal internal carotid artery without hemodynamically significant stenosis. The left common carotid artery are anusha l in course and caliber without stenosis. There is calcified and noncalc ified plaque at the bulb region and proximal internal carotid artery without clinically significant stenosis. Codominant vertebral arteries. Normal or igin of both vertebral arteries, which are normal in course and caliber without stenosis. Other: Unchanged focal hypoattenuation i n the right frontal lobe. Partially imaged right pleural effusion with intrafissural fluid in the major fissure and associated atelectasis. IMPRESSION 1. Normal CT of the head and neck with n o critical stenosis, abrupt occlusion, or dissection. 2. Aneurysmal dilation of the ascending aorta at 4.5 cm. I have personally reviewed the image(s) and the residents interpretation and agree with the findings, Pricila Rutledge at 08/31/2017 4:04 AM Junito Apodaca MD IMG CT ORDERABLES Differential, Automated (08/30/2017 11:57 PM EDT) athologist Signature Neutrophils % 69.6 % [facility] Neutr Abs (ANC) 3.94 1.70 - [facility] 6.10 [facility] x10(3)/[facility] LABORATORY Lymphocytes % 16.6 % [facility] Lymphocytes Abs 0.9 0.9 - 3.2 [facility] x10(3)/[facility] LABORATORY Monocytes % 10.6 % [facility] Monocyte Abs 0.6 0.3 - 0.9 [facility] x10(3)/[facility] LABORATORY Eosinophils % 2.5 % [facility] Eosinophils Abs 0.1 0.0 - 0.4 [facility] x10(3)/[facility] LABORATORY Basophils % 0.5 % [facility] Basophils Abs 0.0 0.0 - 0.1 [facility] x10(3)/[facility] LABORATORY Immature Gran % 0.20 % [facility] Comment: Immature granulocytes(IG's)percentage an d absolute count will include metamyelocytes, myelocytes, and promyelo cytes. Blood smears from CBCs yielding IG's will be scanned manually for concor dance. If this scan disagrees with the automated IG or if promyelocytes are not ed, a manual differential will be performed. Cassie Gran Abs 0.01 0.00 - 0.04 x10(3)/[facility] MAR Y [facility] Specimen Anatomical Collection Method Collection Time Receive d Time (Source) Location / / Volume Laterality Blood specimen 08/30/2017 11:57 7 (specimen) PM EDT 12:08 AM EDT Resulting Agency Comment Spec In Lab Junito Apodaca MD HEMATOLOGY ORDERABLES Performing Organization Address City/State/[place] [address] (ABNORMAL) Hemogram (08/30/2017 11:57 PM EDT) Analysis Performed At Patho logist Time Signature WBC 5.7 4.0 - 9.5 [facility] LABORATORY RBC 4.28 (L) 4.58 - [place] 5.54 [facility] x10(6)/[facility] LABORATORY Hemoglobin 13.1 (L) 13.7 - [facility] 16[facility] gm/dL [facility] Hematocrit 38.4 (L) 40.5 - [facility] 48.5 % [facility] MCV 89.7 82.9 - [facility] 93.1 [facility] LABORATORY MCH 30.6 27.5 - [place] 32.1 pg [facility] MCHC 34.1 32.0 - [place] 35.7 gm/dL [facility] Platelets 210 145 - 357 [facility] x10(3)/[facility] LABORATORY RDWSD 43.2 36.0 - [facility] 45.0 [facility] LABORATORY RDWCV 13.2 11.4 - [facility] 13.8 % [facility] LAB[facility] MPV 10.7 7.6 - 12.9 [facility] nRBC % Auto 0.0 % [facility] nRBC Abs Auto 0.000 0.000 - [facility] 0.000 [facility] x10(3)/[facility] LABORATORY Specimen Anatomical Collection Method Collection Time Receive d Time (Source) Location / / Volume Laterality Blood specimen 08/30/2017 11:57 7 (specimen) PM EDT 12:08 AM EDT Resulting Agency Comment Spec In Lab Junito Apodaca MD HEMATOLOGY ORDERABLES Performing Organization Address City/State/[place] [address] (ABNORMAL) Prothrombin Time (08/30/2017 11:57 PM EDT) P athologist Signature PT 15.1 (H) 12.0 - 15.0 [facility] LABORATORY Comment: An INR <2.0 indicates adequate [...] be appropriate depending on c linical circumstances. INR 1.1 0.9 - 1.1 [facility] LAB[facility]ORY Specimen Anatomical Collection Method Collection Time Receive d Time (Source) Location / / Volume Laterality Blood specimen 08/30/2017 11:57 7 (specimen) PM EDT 12:08 AM EDT Resulting Agency Comment Spec In Lab Junito Apodaca MD HEMATOLOGY ORDERABLES Performing Organization Address City/State/[place] [address] (ABNORMAL) APTT (08/30/2017 11:57 PM EDT) P athologist Signature PTT 42 (H) 25 - 35 sec [facility] Comment: The recommended therapeutic range for fu ll dose, unfractionated heparin at [facility] is 80 ? 114 seconds. The use of the anti-Xa (heparin) level rather than the PTT is recommended for monitoring anticoagul ation intensity in critically ill patients receiving unfractionated hepari n by continuous IV infusion. Specimen Anatomical Collection Method Collection Time Receive d Time (Source) Location / / Volume Laterality Blood specimen 08/30/2017 11:57 7 (specimen) PM EDT 12:08 AM EDT Resulting Agency Comment Spec In Lab Junito Apodaca MD HEMATOLOGY ORDERABLES Performing Organization Address City/State/[place] [address] XR Chest PA & Lateral (Generic) (08/30/2017 10:49 PM EDT) Anatomical Region Laterality Modality Chest N/A Digital Radiography Specimen (Source) Anatomical Location Collection Method / Collectio n Time Received Time / Laterality Volume Impressions 08/30/2017 11:07 PM EDT 1. ??Improved aeration with decreased confluence of the right lower lobe opacity. 2. ??Small right pleural effusion. Narrative 08/30/2017 11:07 PM EDT EXAMINATION: XR CHEST PA AND LATERAL (GENERIC) CLINICAL HISTORY: Evaluate for pulmonary edema TECHNIQUE: 2 views COMPARISON: August 30, 2017 FINDINGS: There is improved aeration of the lungs. No nara pulmonary edema. There is decreased opacity of the right lower lob e. Small right pleural effusion, grossly unchanged accounting for differences in technique. Left lung is clear. Cardiomediastinal silhouette is stable w ith changes of valve replacement again seen. Procedure Note Pricila Rutledge MD - 08/30/2017 EXAMINATION: XR CHEST PA AND LATERAL (ZazzleIC) CLINICAL HISTORY: Evaluate for pulmonary edema TECHNIQUE: 2 views COMPARISON: August 30, 2017 FINDINGS: There is improved aeration of the lungs. No nara pulmonary edema. There is decreased opacity of the right lower lob e. Small right pleural effusion, grossly unchanged accounting for differences in technique. Left lung is clear. Cardiomediastinal silhouette is stable w ith changes of valve replacement again seen. IMPRESSION 1. Improved aeration with decreased conf luence of the right lower lobe opacity. 2. Small right pleural effusion. Junito Apdoaca MD IMG DX ORDERABLES CT Head wo Contrast (Generic) (08/30/2017 10:42 PM EDT) Anatomical Region Laterality Modality Head Computed Tomography Specimen (Source) Anatomical Location Collection Method / Collectio n Time Received Time / Laterality Volume Impressions 08/30/2017 11: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 No associated hemorrhage. Findings discussed with Issac Jarrell ??at 1115 hrs, on 08/30/17. Narrative 08/30/2017 11:18 PM EDT EXAMINATION: CT HEAD WO CONTRAST (GENERIC) CLINICAL HISTORY: New onset left hand nu mbness and clumsiness over last day TECHNIQUE: Head CT without contrast COMPARISON: None FINDINGS: There is no acute intracranial hemorrhag e. There is loss of tirado-white differentiation at the right frontal lob e, concerning for acute evolving infarct. Mild effacement of the adjacent sulci is compatible with minimal local edema. No midline shift. Ventricles and basal cisterns are normal. No extra-axial collection. No calvarial fracture. The paranasal sin uses and mastoid air cells are clear. Procedure Note Pricila Rutledge MD - 08/30/2017 EXAMINATION: CT HEAD WO CONTRAST (GENERI C) CLINICAL HISTORY: New onset left hand nu mbness and clumsiness over last day TECHNIQUE: Head CT without contrast COMPARISON: None FINDINGS: There is no acute intracranial hemorrhag e. There is loss of tirado-white differentiation at the right frontal lob e, concerning for acute evolving infarct. Mild effacement of the adjacent sulci is compatible with minimal local edema. No midline shift. Ventricles and basal cisterns are normal. No extra-axial collection. No calvarial fracture. The paranasal sin uses and mastoid air cells are clear. IMPRESSION CT evidence of an evolving acute right f rontal lobe infarct. No associated hemorrhage. Findings discussed with Issac Jarrell at 1115 hrs, on 08/30/17. Junito Apodaca MD IMG CT ORDERABLES Phosphorus (08/30/2017 10:18 PM EDT) athologist Signature Phosphorus 3.9 2.5 - 4.5 [facility] mg/dL [facility] Specimen Anatomical Collection Method Collection Time Receive d Time (Source) Location / / Volume Laterality Blood specimen Venous Draw / 08/30/2017 10:18 08/30/20 17 (specimen) Unknown PM EDT 10:26 PM EDT Resulting Agency Comment Spec In Lab Junito Apodaca MD CHEMISTRY ORDERABLES Performing Organization Address City/State/[place] [address] (ABNORMAL) Uric acid (08/30/2017 10:18 PM EDT) athologist Signature Uric Acid 8.7 (H) 3.5 - 8.5 [facility] Specimen Anatomical Collection Method Collection Time Receive d Time (Source) Location / / Volume Laterality Blood specimen Venous Draw / 08/30/2017 10:18 08/30/20 17 (specimen) Unknown PM EDT 10:26 PM EDT Resulting Agency Comment Spec In Lab Junito Apodaca MD CHEMISTRY ORDERABLES Performing Organization Address City/[facility]/ZIP Code Phon e Number [address] Magnesium (08/30/2017 10:18 PM EDT) athologist Signature Magnesium 0.80 0.69 - 1.07 [facility] mmol/L [facility] Specimen Anatomical Collection Method Collection Time Receive d Time (Source) Location / / Volume Laterality Blood specimen Venous Draw / 08/30/2017 10:18 08/30/20 17 (specimen) Unknown PM EDT 10:26 PM EDT Resulting Agency Comment Spec In Lab Junito Apodaca MD CHEMISTRY ORDERABLES Performing Organization Address City/[facility]/ZIP Code Phon e Number [address] (ABNORMAL) Basic Metabolic Panel (non-fasting) (08/30/2017 10:18 PM EDT) athologist [facility] Glucose Lvl 97 65 - 199 [facility] mg/dL [facility] Comment: Diabetes: >=200 mg/dL plus symp toms BUN 23 (H) 10 - 20 mg/dL [facility] Creatinine 1.02 0.80 - 1.50 mg/dL [facility] Comment: Please note that the pediatric reference intervals supplied above were not validated at [facility]. Results from pediatri c patients should be interpreted in conjunction to the patient's age, height and muscle mass. Sodium 140 135 - 145 mmol/L [facility] Potassium 3.4 (L) 3.5 - 5.0 mmol/L [facility] Comment: Please note: ??Patients with WBC >100,00 0 may have falsely elevated Potassium levels. ??For accurate Potassium quantif ication in these patients send serum separator tube (gold top) for subsequent determinations. ??Contact the Clinical Chemistry Laboratory if there are any qu estions. Chloride 100 98 - 107 mmol/L [facility] CO2 Not Perf 22 - 31 mmol/L [facility] Comment: Add-on request. Sample too old to perform test. Anion Gap Not Calculated 5 - 15 mmol/L [facility] Calcium 9.1 8.5 - 10.5 mg/dL [facility] Estimated GFR >60 >=60 [facility] Comment: This estimated GFR (eGFR) value was calc ulated using the MDRD equation which has been validated on patients between t he ages of 18 and 70. The MDRD should not be used to assess kidney function in patients < 18 years of age or in patients with extremes of body mass, or in patients with acute kidney failure. This value should be multiplied by 1.2 f or patients. For further information please copy and past e the following links into your internet browser. [email or web address] Specimen Anatomical Collection Method Collection Time Receive d Time (Source) Location / / Volume Laterality Blood specimen Venous Draw / 08/30/2017 10:18 08/30/20 17 (specimen) Unknown PM EDT 10:26 PM EDT Resulting Agency Comment Spec In Lab Junito Apodaca MD CHEMISTRY ORDERABLES Performing Organization Address City/State/[place] [address] (ABNORMAL) Cardiac Enzymes (08/30/2017 10:18 PM EDT) P athologist Signature Troponin-T 0.01 (H) 0.00 - [facility] 0.00 ng/mL [facility] Comment: The 99th percentile for Troponin T is le ss than 0.01 ng/mL, any detectable cTnT concentration using this assay should be considered elevated. According to the third universal definit ion of myocardial infarction the following criteria with a clinical prese ntation consistent with acute myocardial ischemia meets the diagnosis for a myocardial infarction (SC). Detection of a rise and/or fall of [...] additional sample may be indicated. Reference: Third [place] Definition of Myocardial Infarction. Journal of the [place] [employer] 2012;60:1581-98 CK, Total 243 (H) 0 - 200 unit/L [facility] Specimen Anatomical Collection Method Collection Time Receive d Time (Source) Location / / Volume Laterality Blood specimen 08/30/2017 10:18 7 (specimen) PM EDT 10:23 PM EDT Resulting Agency Comment Spec In Lab Junito Apodaca MD CHEMISTRY ORDERABLES Performing Organization Address City/State/[place] [address] Hepatic Function Panel (08/30/2017 10:18 PM EDT) P athologist Signature Total Protein 6.4 6.1 - 8.0 [facility] gm/dL [facility] Albumin 3.7 3.2 - 5.2 [facility] gm/dL [facility] AST 25 0 - 39 [facility] unit/L [facility] ALT 40 0 - 55 [facility] unit/L [facility] Alk Phos 45 40 - 120 [facility] unit/L [facility] Total 0.6 0.2 - 1.3 [facility] Bilirubin mg/dL [facility] Bili, Direct 0.2 0.0 - 0.3 [facility] mg/dL [facility] Specimen Anatomical Collection Method Collection Time Receive d Time (Source) Location / / Volume Laterality Blood specimen 08/30/2017 10:18 7 (specimen) PM EDT 12:08 AM EDT Resulting Agency Comment Spec In Lab Junito Apodaca MD CHEMISTRY ORDERABLES Performing Organization Address City/State/[place] [address] (ABNORMAL) pro-Brain Natriuretic Peptide (08/30/2017 10:18 PM EDT) P athologist Signature ProBNP 7,602 (H) <=125 [facility] pg/mL [facility] Specimen Anatomical Collection Method Collection Time Receive d Time (Source) Location / / Volume Laterality Blood specimen 08/30/2017 10:18 7 (specimen) PM EDT 10:23 PM EDT Resulting Agency Comment Spec In Lab Junito Apodaca MD CHEMISTRY ORDERABLES Performing Organization Address City/[facility]/[place] [address] TSH (08/30/2017 10:18 PM EDT) P athologist Signature TSH 1.70 0.27 - 4.20 [facility] mlU/ML [facility] Specimen Anatomical Collection Method Collection Time Receive d Time (Source) Location / / Volume Laterality Blood specimen 08/30/2017 10:18 7 (specimen) PM EDT 10:23 PM EDT Resulting Agency Comment Spec In Lab Junito Apodaca MD CHEMISTRY ORDERABLES Performing Organization Address City/State/[place] [address] EKG 12 Lead (08/30/2017 10:10 PM EDT) Component Value Ref Range Test Analysis Performed Pathologis t Method Time At Signature Ventricular rate 86 BPM MUSE SYSTEM Atrial Rate 86 BPM MUSE SYSTEM P-R Interval 206 ms MUSE SYSTEM QRS Duration 170 ms MUSE SYSTEM Q-T Interval 454 ms MUSE SYSTEM QTC Calculated 543 ms MUSE SYSTEM (Bezet) Calculated P [place] 79 degrees MUSE SYSTEM Calculated R [place] -67 degrees MUSE SYSTEM Calculated T [place] 83 degrees MUSE SYSTEM INTERPRETATION Normal sinus rhythm MUSE SYSTEM Left axis deviation Left ventricular hypertrophy Non-specific intra-ventricular conduction block Abnormal ECG No previous ECGs available Confirmed by MD Jacob, Reji ([id number]) on 08/31/2017 3:15:17 PM Specimen Anatomical Collection Method Collection Time Receive d Time (Source) Location / / Volume Laterality 08/30/2017 10:10 08/31/2017 3:15 PM EDT PM EDT Junito Apodaca MD ECG ORDERABLES Performing Organization Address City/State/ZIP Code Phon e Number MUSE SYSTEM documented in this encounter Visit Diagnoses Diagnosis Acute systolic congestive heart failure Acute systolic heart failure Cerebrovascular accident (CVA), unspecif ied mechanism Atrial fibrillation, unspecified type Cerebrovascular accident (CVA) due to em bolism of right middle cerebral artery Valvular disease Endocarditis, valve unspecified, 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 documented in this encounter Admitting Diagnoses Diagnosis CHF (congestive heart failure) Congestive heart failure, unspecified documented in this encounter Administered Medications Inactive Administered Medications - up to 3 most recent administrations Medication Order MAR Action Action Date Dose Rate Site acetaminophen (TYLENOL) tablet 650 Given 09/02/2017 4:12 PM EDT 650 mg mg 650 mg, Oral, EVERY 4 HOURS PRN, Starting on Tue08/30/17 at 2205, Until Tue09/08/17 at 1719, Pain, Headaches, Maximum dose of acetaminophen is 4000 mg from all sources in 24 hours., Routine aspirin chewable tablet 81 mg Given 09/08/2017 8:16 AM EDT 81 mg 81 mg, Oral, DAILY, First dose on Tue09/01/17 at 0900, Until Discontinued, Routine Given 09/07/2017 8:10 AM EDT 81 mg Given 09/06/2017 9:17 AM EDT 81 mg aspirin tablet 325 mg Given 08/31/2017 9:00 AM EDT 325 mg 325 mg, Oral, DAILY, First dose on Tue08/31/17 at 0900, Until Discontinued, Routine aspirin tablet 325 mg Given 08/31/2017 2:03 AM EDT 325 mg 325 mg, Oral, ONCE, 1 dose, On Tue08/31/17 at 0200, STAT atorvastatin (LIPITOR) tablet 80 mg Given 09/07/2017 5:00 PM EDT 80 mg 80 mg, Oral, EVERY EVENING, First dose on Tue08/31/17 at 0000, Until Discontinued, Routine Given 09/06/2017 5:05 PM EDT 80 mg Given 09/05/2017 5:14 PM EDT 80 mg benzonatate (TESSALON) capsule 100 mg Given 09/08/2017 8:15 AM EDT 100 mg 100 mg, Oral, 3 TIMES DAILY, First dose on Tu08/30/17 at 2230, Until Discontinued, DO NOT CRUSH OR OPEN, Routine Given 09/07/2017 2:18 PM EDT 100 mg Given 09/07/2017 8:11 AM EDT 100 mg enoxaparin (LOVENOX) injection 70 mg Given 09/07/2017 8:12 AM EDT 70 mg 70 mg, Subcutaneous, EVERY 12 HOURS SCHEDULED (2 times per day), First dose on 09/04/17 at 1100, Until Discontinued, Routine Given 09/06/2017 8:38 PM EDT 70 mg Given 09/06/2017 9:18 AM EDT 70 mg Abdom inal Tissue furosemide (LASIX) injection 20 mg Given 09/01/2017 6:43 PM EDT 20 mg 20 mg, Intravenous, ONCE, 1 dose, On Shweta 09/01/17 at 1815, Routine furosemide (LASIX) injection 40 mg Given 09/02/2017 1:18 AM EDT 40 mg 40 mg, Intravenous, ONCE, 1 dose, On Tue09/02/17 at 0115, Routine furosemide (LASIX) injection 40 mg Given 09/02/2017 12:12 PM EDT 40 mg 40 mg, Intravenous, ONCE, 1 dose, On Tue09/02/17 at 1145, Routine furosemide (LASIX) injection 40 mg Given 09/02/2017 4:14 PM EDT 40 mg 40 mg, Intravenous, ONCE, 1 dose, On Tue09/02/17 at 1700, Routine furosemide (LASIX) injection 60 mg Given 09/03/2017 3:12 AM EDT 60 mg 60 mg, Intravenous, ONCE, 1 dose, On 09/03/17 at 0230, Routine furosemide (LASIX) injection 80 mg Given 09/03/2017 10:03 AM EDT 80 mg 80 mg, Intravenous, ONCE, 1 dose, On 09/03/17 at 0930, Routine furosemide (LASIX) injection 80 mg Given 09/03/2017 4:00 PM EDT 80 mg 80 mg, Intravenous, ONCE, 1 dose, On 09/03/17 at 1600, Routine furosemide (LASIX) injection 80 mg Given 09/04/2017 8:34 PM EDT 80 mg 80 mg, Intravenous, 2 TIMES DAILY, 2 doses, First dose (after last reorder) on 09/04/17 at 1000, Last dose on 09/04/17 at 2100, Routine Given 09/04/2017 10:20 AM EDT 80 mg furosemide (LASIX) tablet 20 mg Given 09/02/2017 8:14 AM EDT 20 mg 20 mg, Oral, DAILY, First dose on Shweta 09/01/17 at 1130, Until Discontinued, Routine Given 09/01/2017 12:34 PM EDT 20 mg guaiFENesin (ROBITUSSIN) 20 mg/mL liquid 10 Given 09/08/2017 8:18 AM EDT 10 mLs mL 10 mL (200 mg), Oral, EVERY 4 HOURS PRN, Starting on Tue09/06/17 at 1155, Until Shweta 09/08/17 at 1719, Cough, Maximum daily dose is 2400 mg, Routine Given 09/07/2017 8:33 PM EDT 10 mLs Given 09/07/2017 10:11 AM EDT 10 mLs heparin (porcine) 25,000 unit/500 mL (50 unit/mL) infusion 1 dose, Starting on Tue08/30/17 at 2039, Until [facility] at 2205, Emily Miranda (ssfan): cabinet override heparin (porcine) injection 0-4,000 Given 08/31/2017 12:42 AM ED T 4,000 Units Units 0-4,000 Units, Intravenous, BOLUS PER HEPARIN PROTOCOL, Starting on Tue08/30/17 at 2159, Until [place] 09/04/17 at 0937, Per Protocol, START ADJUSTMENT SCHEDULE 6 HOURS AFTER STARTING INFUSION aPTT Between 60 - 79 seconds: Bolus 2,000 units aPTT Less than 60 seconds: Bolus 4,000 units Increase infusion and recheck aPTT in 6 hours. , Routine heparin 25,000 units in New Bag 09/04/2017 6:15 AM EDT 1,300 Units /hr 26 mL/hr dextrose 5% 500 mL infusion 0-5,000 Units/hr (0-100 mL/hr), Intravenous, CONTINUOUS, Starting on Tue08/30/17 at 2230, Until Tue09/04/17 at 0937, BEGIN infusion at 900 units per hr (12 units/kg/hr). MAX INITIAL infusion rate is 1,000 units/hr. Target PTT = 80 - 114 seconds Start adjustment schedule 6 hours after starting infusion. If PTT is: - less than 60 seconds, Administer PRN bolus and increase rate by 300 units per hr (4 units/kg/hr) - 60 - 79 seconds, Administer PRN bolus and increase rate by 150 units per hr (2 units/kg/hr) - 80 - 114 seconds, No Change - 115 - 129 seconds, decrease rate by 50 units per hr (1 units/kg/hr) - 130 - 145 seconds, stop infusion for 30 minutes, then decrease rate by 150 units per hr (2 units/kg/hr) - Greater than 145 seconds, stop infusion for 60 minutes, then decrease rate by 200 units per hour (3 units/kg/hr) Repeat aPTT 6 hours after initiating heparin. Then 6 hours after each dose adjustment. When 2 consecutive aPTT within target range of 80 - 114 seconds, change aPTT to once every 24 hours with A.M. labs while on heparin. RN to order required aPTT - Per Protocol, Routine New Bag 09/03/2017 12:49 PM EDT 1,300 Units/hr 26 mL/hr Rate/Dose Verify 09/03/2017 12:30 PM EDT 1,300 Units/hr 26 mL/hr hydrocortisone 1 % cream Given 09/08/2017 9:00 AM EDT Topical (Top), 2 TIMES DAILY, First dose on 09/03/17 at 1130, Until Discontinued Given 09/07/2017 8:36 PM EDT Given 09/07/2017 9:00 AM EDT iohexol (OMNIPAQUE) 350 mg/mL solution 0-200 Given 09/2017 1:23 AM EDT 65 mLs mL 0-200 mL, Intravenous, ONCE PRN, 1 dose, Starting on Tue08/31/17 at 0123, Until Tue08/31/17 at 0123, Per Protocol, Warning Vesicant/Irritant Medication , Radiology Contrast, Routine lisinopril (PRINIVIL;ZESTRIL) tablet 10 mg Given 09/02/2017 8:14 AM EDT 10 mg 10 mg, Oral, DAILY, First dose on Shweta 09/01/17 at 1130, Until Discontinued, Routine Given 09/01/2017 12:33 PM EDT 10 mg lisinopril (PRINIVIL;ZESTRIL) tablet 20 mg Given 09/03/2017 8:48 AM EDT 20 mg 20 mg, Oral, DAILY, First dose (after last modification) on 09/03/17 at 0900, Until Discontinued, Routine lisinopril (PRINIVIL;ZESTRIL) tablet 20 mg Given 09/06/2017 9:17 AM EDT 20 mg 20 mg, Oral, DAILY, First dose on 09/04/17 at 0900, Until Discontinued, Routine Given 09/05/2017 9:01 AM EDT 20 mg Given 09/04/2017 8:31 AM EDT 20 mg magnesium sulfate 2 g in sterile water New Bag 08/30/2017 11:5 0 PM EDT 2 g 25 mL/hr 50 mL 2 g, Intravenous, ONCE, 1 dose, On 08/30/17 at 2345, Administer over 120 Minutes magnesium sulfate 2 g in sterile water New Bag 09/01/2017 6:43 PM EDT 2 g 25 mL/hr 50 mL 2 g, Intravenous, ONCE, 1 dose, On Shweta 09/01/17 at 1815, Administer over 120 Minutes melatonin tablet 6 mg Given 09/07/2017 8:33 PM EDT 6 mg 6 mg, Oral, NIGHTLY, First dose on Shweta 09/01/17 at 0030, Until Discontinued, Routine Given 09/06/2017 8:38 PM EDT 6 mg Given 09/05/2017 9:03 PM EDT 6 mg meTOPROLOL (LOPRESSOR) injection 5 mg Given 09/03/2017 5:35 PM EDT 5 mg 5 mg, Intravenous, EVERY 5 MIN PRN, Starting on Tue08/31/17 at 0746, Until Shweta 09/08/17 at 1719, High Blood Pressure, Elevated Heart Rate, Give every 3 mins for HR > 110. Do not give more than 3 doses consecutively. Hold for SBP < 90 Given 09/02/2017 12:49 PM EDT 5 mg Given 08/31/2017 1:52 PM EDT 5 mg meTOPROLOL (LOPRESSOR) tablet 12.5 mg Given 08/31/2017 9:00 AM EDT 12.5 mg 12.5 mg, Oral, EVERY 12 HOURS SCHEDULED (2 times per day), First dose on Tue08/31/17 at 0900, Until Discontinued, Hold for HR < 60, SBP < 90, Routine meTOPROLOL (LOPRESSOR) tablet 12.5 mg Given 09/04/2017 6:03 AM EDT 12.5 mg 12.5 mg, Oral, EVERY 6 HOURS SCHEDULED, First dose (after last modification) on Tue08/31/17 at 1430, Until Discontinued, Hold for HR < 60, SBP < 90, Routine Given 09/03/2017 11:33 PM EDT 12.5 mg Given 09/03/2017 5:02 PM EDT 12.5 mg meTOPROLOL succinate (TOPROL-XL) XL tablet Given 09/08/2017 8:16 AM EDT 100 mg 100 mg 100 mg, Oral, DAILY, First dose on Tue09/06/17 at 1200, Until Discontinued, DO NOT CRUSH OR OPEN, Routine Given 09/07/2017 8:12 AM EDT 100 mg Given 09/06/2017 12:10 PM EDT 100 mg meTOPROLOL tartrate (LOPRESSOR) tablet 2 5 mg Given 09/06/2017 6:16 AM EDT 25 mg 25 mg, Oral, EVERY 6 HOURS SCHEDULED, First dose (after last modification) on Tue09/04/17 at 1200, Until Discontinued, Hold for HR < 60, SBP < 90, Routine Given 09/06/2017 12:01 AM EDT 25 mg Given 09/05/2017 5:15 PM EDT 25 mg potassium chloride (K-DUR/KLOR-CON) extended Given 08/2017 11:50 PM EDT 40 mEq release tablet 40 mEq 40 mEq, Oral, ONCE, 1 dose, On Tue08/30/17 at 2345, 20 mEq tablet may be dissolved in water for administration, Routine potassium chloride (K-DUR/KLOR-CON) extended Given 10/2017 6:43 PM EDT 60 mEq release tablet 60 mEq 60 mEq, Oral, ONCE, 1 dose, On Tue09/01/17 at 1815, 20 mEq tablet may be dissolved in water for administration, Routine sodium chloride 0.9 % flush 5 mL Given 09/07/2017 8:34 PM EDT 5 mLs 5 mL, Intravenous, EVERY 12 HOURS, First dose on Tue08/30/17 at 2230, Until Discontinued, Routine Given 09/06/2017 8:42 PM EDT 5 mLs Given 09/06/2017 10:38 AM EDT 5 mLs sodium chloride 0.9% 500 mL IV bolus New Bag 09/07/2017 8:07 AM EDT 500 mL/hr Intravenous, ONCE, 1 dose, On Tue09/07/17 at 0745 spironolactone (ALDACTONE) tablet 25 mg Given 09/06/2017 9:17 AM EDT 25 mg 25 mg, Oral, DAILY, First dose on 09/03/17 at 0930, Until Discontinued, Routine Given 09/05/2017 9:02 AM EDT 25 mg Given 09/04/2017 8:31 AM EDT 25 mg torsemide (DEMADEX) tablet 80 mg Given 09/05/2017 11:54 AM EDT 80 mg 80 mg, Oral, 2 TIMES DAILY, 2 doses, First dose on Tue09/05/17 at 1000, Last dose on Tue09/05/17 at 1700, Routine torsemide (DEMADEX) tablet 80 mg Given 09/06/2017 9:18 AM EDT 80 mg 80 mg, Oral, 2 TIMES DAILY, First dose on Tue09/05/17 at 1730, Until Discontinued, Routine Given 09/05/2017 5:17 PM EDT 80 mg warfarin (COUMADIN) daily order reminder Oral, EVERY 24 HOURS, First dose on Tue09/01/17 at 1400, Until Discontinued, If the daily warfarin order has not been pl aced, contact the Provider to confirm that the order will be written, the dose is held or discont inued. warfarin (COUMADIN) tablet 10 mg Given 09/05/2017 5:13 PM EDT 10 mg 10 mg, Oral, ONCE, 1 dose, On Tue09/05/17 at 1700, Routine warfarin (COUMADIN) tablet 5 mg Given 08/31/2017 5:31 PM EDT 5 mg 5 mg, Oral, ONCE, 1 dose, On Tue08/31/17 at 1700, Routine warfarin (COUMADIN) tablet 5 mg Given 09/01/2017 5:03 PM EDT 5 mg 5 mg, Oral, ONCE, 1 dose, On Shweta 09/01/17 at 1700, Routine warfarin (COUMADIN) tablet 7.5 mg Given 09/02/2017 4:13 PM EDT 7.5 mg 7.5 mg, Oral, ONCE, 1 dose, On Tue09/02/17 at 1700, Routine warfarin (COUMADIN) tablet 7.5 mg Given 09/03/2017 4:40 PM EDT 7.5 mg 7.5 mg, Oral, ONCE, 1 dose, On 09/03/17 at 1700, Routine warfarin (COUMADIN) tablet 7.5 mg Given 09/04/2017 5:11 PM EDT 7.5 mg 7.5 mg, Oral, ONCE, 1 dose, On 09/04/17 at 1700, Routine warfarin (COUMADIN) tablet 7.5 mg Given 09/06/2017 5:05 PM EDT 7.5 mg 7.5 mg, Oral, ONCE, 1 dose, On Tu09/06/17 at 1700, Routine warfarin (COUMADIN) tablet 7.5 mg Given 09/07/2017 4:09 PM EDT 7.5 mg 7.5 mg, Oral, ONCE, 1 dose, On Tue09/07/17 at 1700, Routine documented in this encounter Active and Recently Administered Medications Times are shown in EDT. Scheduled Medication Order 09/06/2017 09/07/2017 09/08/2017 aspirin chewable tablet 81 mg 0917 (Given - Provider: Uvaldo Corrales) 0810 (Given - Provider: Natty Cole RN) 0816 (Given - Provider: Natty Cole RN) 81 mg, Oral, DAILY, First dose on Shweta at 0900, Until Discontinued, Routine atorvastatin (LIPITOR) tablet 80 mg 1705 (Given - Prov ider: Dinora Lamas RN) 1700 (Given - Provider: Natty Cole RN) 80 mg, Oral, EVERY EVENING, First dose o n Tue08/31/17 at 0000, Until Discontinued, Routine benzonatate (TESSALON) capsule 100 mg 0918 (Given - Pr ovider: Uvaldo Corrales)1500 (Not Given - Provider: Dinora Lamas RN - Reason: Patient/family refused)2043 (Given - Provider: Kellie Paul RN) 0811 (Given - Provider: Natty Cole RN)1418 (Given - Provider: Natty Cole RN)2035 (Not Given - Provider: Kellie Paul RN - Reason: Patient/family refused) 0815 (Given - Provider: Natty Cole RN)1500 (Due) 100 mg, Oral, 3 TIMES DAILY, First dose on Tue08/30/17 at 2230, Until Discontinued, DO NOT CRUSH OR OPEN, Routine enoxaparin (LOVENOX) injection 70 mg (CANCELED) 917 ( Given - Provider: Uvaldo Corrales)2037 (Given - Provider: Kellie Paul RN) 08 (Given - Provider: Natty Cole RN) 70 mg, Subcutaneous, EVERY 12 HOURS SCHE DULED (2 times per day), First dose on 09/04/17 at 1100, Until Discontinued, Routine hydrocortisone 1 % cream 925 (Given - Provider: Uvaldo Corrales)2043 (Given - Provider: Kellie Paul RN) 0900 (Given - Provider: Natty meyers RN)2035 (Given - Provider: Kellie Paul RN) 0900 (Given - Provider: Natty Cole RN) Topical (Top), 2 TIMES DAILY, First dose on 09/03/17 at 1130 lisinopril (PRINIVIL;ZESTRIL) tablet 20 mg (CANCELED) 916 (Given - Provider: Uvaldo Corrales) 20 mg, Oral, DAILY, First dose on Sun at 0900, Until Discontinued, Routine melatonin tablet 6 mg 2037 (Given - Provider: Kellie ward RN) 2032 (Given - Provider: Kellie Paul RN) 6 mg, Oral, NIGHTLY, First dose on Shweta 1 at 0030, Until Discontinued, Routine meTOPROLOL succinate (TOPROL-XL) XL tablet 100 mg 1210 (Given - Provider: Uvaldo Corrales) 0812 (Given - Provider: Natty Cole RN) 0816 (Given - Provider: Natty Cole RN) 100 mg, Oral, DAILY, First dose on Tue at 1200, Until Discontinued, DO NOT CRUSH OR OPEN, Routine meTOPROLOL tartrate (LOPRESSOR) tablet 25 mg (CANCELED ) 0001 (Given - Provider: Kellie Paul RN)0616 (Given - Provider: Kellie Paul RN) 25 mg, Oral, EVERY 6 HOURS SCHEDULED, Fi rst dose on 09/04/17 at 1200, Until Discontinued, Hold for HR < 60, SBP < 90, Routine sodium chloride 0.9 % flush 5 mL 1038 (Given - Provide r: Uvaldo Corrales)2041 (Given - Provider: Kellie Paul RN)2230 (Not Given - Provider: Kellie Paul RN - Reason: Contraindicated) 1030 (Not Given - Provider: Natty cool RN - Reason: See comment - Comment: flushed earlier in assessment)2033 (Given - Provider: Kellie Paul RN)2230 (Not Given - Provider: Kellie Paul RN - Reason: Contraindicated) 1030 (Not Given - Provider: Natty cool RN - Reason: Contraindicated - Comment: flushed earlier in assessment) 5 mL, Intravenous, EVERY 12 HOURS, First dose on Tue08/30/17 at 2230, Until Discontinued, Routine sodium chloride 0.9% 500 mL IV bolus (COMPLETED) 0807 (New Bag - Provider: Natty Cole RN) Intravenous, ONCE, 1 dose, 09/07/17 at 0745 spironolactone (ALDACTONE) tablet 25 mg (CANCELED) 091 7 (Given - Provider: Uvaldo Corrales) 25 mg, Oral, DAILY, First dose on Sat at 0930, Until Discontinued, Routine torsemide (DEMADEX) tablet 80 mg (CANCELED) 0918 (Give n - Provider: Uvaldo Corrales) 80 mg, Oral, 2 TIMES DAILY, First dose o n 09/05/17 at 1730, Until Discontinued, Routine warfarin (COUMADIN) daily order reminder 1400 (Dose co nfirmed - Provider: Dinora Lamas RN) 1400 (Dose confirmed - Provider: Natty Cole RN) 1400 (Due) Oral, EVERY 24 HOURS, First dose on Shweta 09/01/17 at 1400, If the daily warfarin order has not been placed, contact the Provider to confirm that the order will be written, the dose is held or discontinued. warfarin (COUMADIN) tablet 7.5 mg (COMPLETED) 1705 (Gi melina - Provider: Dinora Lamas RN) 7.5 mg, Oral, ONCE, 1 dose, Tue09/06/17 at 1700, Routine warfarin (COUMADIN) tablet 7.5 mg (COMPLETED) 1609 (Given - Provider: Natty Cole, BEHZAD) 7.5 mg, Oral, ONCE, 1 dose, Tue09/07/17 at 1700, Routine PRN Medication Order 09/06/2017 09/07/2017 09/08/2017 acetaminophen (TYLENOL) tablet 650 mg 650 mg, Oral, EVERY 4 HOURS PRN, Startin g Tue08/30/17 at 2205, Until Shweta 09/08/17 at 1719, Pain, Headaches, Maximum dose of acetaminophen is 4000 mg from all sources in 24 hours., Routine guaiFENesin (ROBITUSSIN) 20 mg/mL liquid 10 mL 1440 (G iven - Provider: Dinora Lamas RN)1928 (Given - Provider: Kellie Paul RN) 0541 (Given - Provider: Kellie Paul RN)1011 (Given - Provider: Natty Cole, BEHZAD)2033 (Given - Provider: Kellie Paul, BEHZAD) 0818 (Given - Provider: Natty Cole, BEHZAD) 10 mL (200 mg), Oral, EVERY 4 HOURS PRN, Starting Tue09/06/17 at 1155, Until Shweta 09/08/17 at 1719, Cough, Maximum daily dose is 2400 mg, Routine lidocaine (XYLOCAINE) 10 mg/mL (1 %) injection 3 mg 3 mg (0.3 mL), Subcutaneous, ONCE PRN, 1 dose, Starting Tue08/30/17 at 2205, Until Shweta 09/08/17 at 1719, for discomfort with PIV insertion, Routine meTOPROLOL (LOPRESSOR) injection 5 mg 5 mg, Intravenous, EVERY 5 MIN PRN, Yonas holm 08/31/17 at 0746, Until Shweta 09/08/17 at 1719, High Blood Pressure, Elevated Heart Rate, Give every 3 mins for HR > 110. Do not give more than 3 doses consecutively. Hold for SBP < 90 sodium chloride 0.9 % flush 5-20 mL 5-20 mL, Intravenous, EVERY 1 MIN PRN, Chu concepcion Tualicia 08/30/17 at 2205, Until Shweta 09/08/17 at 1719, flush, Flush pertains to all indwelling lines. Flush per protocol found in the job aid using the link provided on this medication record., Routine documented in this encounter Care Teams Shoe Packer Relationship Specialty Start Date End Date None PCP - General 08/30/17 11/23/18 None documented as of this encounter
--- OUTSIDE RECORDS SUMMARY | 2022-05-20 07:41 | XMS_ITS | Encounter Summary ---
:1955 Author Organization [facility] [place] [address] Care Team Providers Name Role Phone None Primary Care Provider Unavailable Encounter Details Date Type Department Care Team Description 08/30/2017 Telephone Cardiology at [facility] Rosa Heredia MD [facility] [place] [id number] CARDIOLOGY DEPT [phone] [place], [place] [address] (Wo rk) Social History Tobacco [...] this encounter Miscellaneous Notes Telephone Encounter - Rosa Heredia MD - 08/30/2017 4:[address] refer to Dr Goyo Callejas note from earlier this morning. Pt diuresed 3L with IV lasix and is better. Afib rate down to 80 with 5mg/hr of diltiazem. [facility] cannot admit him and he spent the last 12 hours in ER. Accepted in transfer for further management of CHF. He was not on any medications for over two years, was in [facility]. Moved back to [facility] about 9 months ago but apparently was unable to get back into seeing any physician here. 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 I was told that his cath was normal otherwise. No other information available. Currently on dilt drip which might be discontinued and on IV heparin drip. - Accepted in transfer to [facility] level of care - Obtain records from [place] - Continue diuresis and anticoagulation. - Guideline directed management after that. Rosa Heredia MD 4:22 PM August 30, 2017 Bike Designer Pager # [phone] documented in this encounter Plan of Treatment Upcoming Encounters Date Type Specialty Care Team Description 06/16/2022 Laboratory Appointment Lab 06/16/2022 Office Visit Cardiology Gianna Lorenzana PA [facility] Cardiology Dept [place], [place] [address] (Wo rk) Scheduled Procedures Name Priority Associated Diagnoses Date/Time EGD, UPPER GI ENDOSCOPY Chronic cough Heartburn RUQ pain Fecal urgency Dysphagia, unspecifi ed type History of hepatitis C COLONOSCOPY, DIAGNOSTIC Chronic cough Heartburn RUQ pain Fecal urgency Dysphagia, unspecifi ed type History of hepatitis C documented as of this encounter Visit Diagnoses Not on filedocumented in this encounter Care Teams Disaster Recovery Manager Relationship Specialty Start Date End Date None PCP - General 08/30/17 11/23/18 None documented as of this encounter
--- OUTSIDE RECORDS SUMMARY | 2022-05-20 07:41 | XMS_ITS | Encounter Summary ---
:1955 Author Organization [facility] [place] [address] Care Team Providers Name Role Phone None Primary Care Provider Unavailable Encounter Details Date Type Department Care Team Description 08/30/2017 Telephone Cardiology Celine Nance MD [facility] [place] [id number] CARDIOLOGY DEPT [phone] [place], [place] [address] (Wo rk) Social History Tobacco [...] this encounter Miscellaneous Notes Telephone Encounter - Celine Nance MD - 08/30/2017 4:43 AM EDT Telephone Triage Note Initial Contact Date: 08/30/17 Initial contact time: 4:45am Referring Provider: Dr. 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 Patient is on a medication retreat in [place] and has not manjeet taking his medications for a few months. On arrival to the ED, BP 170/120, HR 105, rales at bases, no hypoxia. He was given 1 SL NTG which improved his BP. Troponin mildly elevated at 0.11, BNP 7105. Good urine response to lasix. Past Medical History: ?aortic, mitral and tricuspid valve replacements Hx atrial fibrillation s/p Maze Pertinent Diagnostic Findings: Vitals: BP 160/84 HR 90 SaO2 95% on RA EKG : AF RVR at 114 BPM, cannot rule out prior anteroseptal infarct, lateral ST segment depression and T wave inversion. Personally reviewed. Troponin 0.11@ h: 3:45am (ULN 0.06) CXR: right sided pleural effusion BNP 7000 OSH Interventions: Lasix SL NTG Plan: 62 year old male with a history of multi valve replacement and atrial fibrillation who presents to OSH ED with two weeks GARCIA, now at rest with associated chest tighthness. Troponin mildly elevated withlateral ST depression on EKG. Hypertensive and tacyhcardiac on presentation in the setting of medicat ion non-compliance. Volume overloaded on exam, currently chest pain free and non-hypoxic on RA. Elevated troponin may be 2/2 ACS vs. Demand ischemia from atrial fibrillation vs. CHF exacerbation. As patient is stable, chest pain free and OSH facility is able to perform TTE in am, recommend: - trending troponin and EKG - TTE in am to evaluate valve replacement history and EF - continue diuresis as tolerated - BP control - rate control for AF with BB for goal <110 BPM; heparin gtt for AC - if troponin increases significantly or patient begins to show signs of clinical instability, will consider transfer Celine Nance MD Acid Conditioning Worker documented in this encounter Plan of Treatment Upcoming Encounters Date Type Specialty Care Team Description 06/16/2022 Laboratory Appointment Lab 06/16/2022 Office Visit Cardiology Gianna Lorenzana PA [facility] Cardiology Dept [place] [address] (Wo rk) Scheduled Procedures Name Priority Associated Diagnoses Date/Time EGD, UPPER GI ENDOSCOPY Chronic cough Heartburn RUQ pain Fecal urgency Dysphagia, unspecifi ed type History of hepatitis C COLONOSCOPY, DIAGNOSTIC Chronic cough Heartburn RUQ pain Fecal urgency Dysphagia, unspecifi ed type History of hepatitis C documented as of this encounter Visit Diagnoses Not on filedocumented in this encounter Care Teams Group Marketing Vp Relationship Specialty Start Date End Date None PCP - General 08/30/17 11/23/18 None documented as of this encounter
--- OUTSIDE RECORDS SUMMARY | 2022-05-20 07:42 | XMS_ITS | Clinical Summary ---
:1955 Demographics Home Phone Preferred Language Unknown Marital Status Unknown Restoration Affiliation Unknown Race Unknown Ethnic Group Unknown Author Organization [facility] Address [address] [place] [address] Care Team Providers Name Role Phone Unknown, Provider Primary Care Provider Social History Tobacco Use Types Packs/Day Years Used Date Never Assessed Sex Assigned at Date Recorded Not on file Plan of Treatment Health Maintenance Due Date Last Done Comments Fall Risk Screening 2018 Care Teams Java Jsf Developer Relationship Specialty Start Date End Date Unknown, Provider, PCP - General 09/29/17
--- OUTSIDE RECORDS SUMMARY | 2022-05-20 07:42 | XMS_ITS | Encounter Summary ---
:1955 Demographics Home Phone Preferred Language Unknown Marital Status Unknown Taoism Affiliation Unknown Race Unknown Ethnic Group Unknown Author Organization [facility] Address [address] [place] [address] Care Team Providers Name Role Phone Unknown, Provider Primary Care Provider Encounter Details Date Type Department Care Team Description 09/29/2017 Historical Results [facility] - Kalie Jerez, Only [facility] Lab - Main [facility] [address] [place] [address] [address] [place] [address] Social History Tobacco Use Types Packs/Day Years Used Date Never Assessed Sex Assigned at Date Recorded Not on file documented as of this encounter Plan of Treatment Not on filedocumented as of this encounter Procedures Procedure Name Priority Date/Time Associated Comments Diagnosis COMPLETE BLOOD COUNT Routine 09/29/2017 16:19 Res ults for this WITH DIFFERENTIAL EST procedure are in (AUTO) the results section. PROTIME/PARTIAL Routine 09/29/2017 16:19 Results for this PROTIME ([facility]) EST procedure are in the results section. THYROID CASCADE Routine 09/29/2017 16:19 Results for this EST procedure are i n the results section. MAGNESIUM Routine 09/29/2017 16:19 Results for this EST procedure are i n the results section. BASIC METABOLIC PANEL Routine 09/29/2017 16:19 Re sults for this (BMP) EST procedure are i n the results section. documented in this encounter Results MAGNESIUM (09/29/2017 16:19 EST) Pathologist Sig nature Magnesium 2.30 1.7 - 2.8 mg/dL [facility] R LAB Specimen Performing Organization Address City/State/ZIP Code Phon e Number [facility] [address] [place] [address] [facility] (ABNORMAL) BASIC METABOLIC PANEL (BMP) (09/29/2017 16:19 EST) BUN [facility] 54 (H) 10 - 26 mg/dL [facility] CALCIUM - [facility] 9.4 8.5 - 10.5 [facility] mg/dL [facility] Chloride 102 96 - 110 [facility] mmol/L [facility] CO2 Total 27 21 - 32 mEq/L [facility] CREATININE 1.40 (H) 0.66 - 1.25 [facility] mg/dL [facility] LAB eGFR 51 [facility] Comment: [facility] Stage 3: Moderate renal impairment is defined as GFR 3 0-59 Multiply result by 1.210 for patients . Anion Gap 12 5 - 15 [facility] GLUCOSE - [facility] 95 70 - 100 mg/dL [facility] Potassium 4.3 3.5 - 5.0 [facility] mEq/L [facility] Sodium 141 136 - 145 [facility] mEq/L [facility] LAB Specimen Performing Organization Address City/[facility] Phon e Number [facility] [address] LAB THYROID CASCADE (09/29/2017 16:19 EST) Pathologist Sig nature TSH 1.78 0.46 - 4.68 uIU/mL [facility] NTER LAB Specimen Performing Organization Address [facility] Phon e Number [facility] [address] LAB (ABNORMAL) PROTIME/PARTIAL PROTIME ([facility]) (09/29/2017 16:19 EST) Pathologist [facility] INR [facility] 3.7 (H) 0.9 - 1.2 [facility] Comment: MED CENTER LAB Low intensity INR: 2.0-3.0 High intensity INR: Consult Coag Dept. PROTHROMBIN TIME - 42.7 (H) 9.5 - 13.4 [facility] SECONDS [facility] LAB PARTIAL THROMBO 35 (H) 21 - 34 SECONDS [facility] TIME [facility] LAB Specimen Performing Organization Address City/[facility] Phon e Number [facility] [address] LAB (ABNORMAL) COMPLETE BLOOD COUNT WITH DIFFERENTIAL (AUTO) (09/29/2017 16:19 EST) Pathologist Sig nature ABSOLUTE NEUTROPHIL 3.97 1.7 - 7.[address] [facility] COUN - CV 10e3/ul CENTER LAB BASO # - [facility] 0.03 0.0 - 0.3 [facility] 10e3/uL [place] [facility] BASO % - [facility] 1 0 - 2 % [facility] EOS # - [facility] 0.10 0.05 - 0.5 [facility] 10e3/uL [place] [facility] EOS % - [facility] 2 0 - 5 % [facility] GRAN % - [facility] 69 40 - 80 % [facility] HEMATOCRIT - [facility] 47.5 36.0 - 52.0 % [facility] HEMOGLOBIN - [facility] 15.6 13.7 - 17.5 g/dl [facility] IG# - [facility] 0.01 0 - 0.07 10e3/uL [facility] IG% - [facility] 0.2 0 - 0.9 % [facility] LYMPH # - [facility] 1.05 0.9 - 2.9 [facility] 10e3/uL [place] [facility] LYMPH% - [facility] 18 (L) 20 - 40 % [facility] MEAN CORPUSCULAR HGB - 29.7 26 - 34 pg [facility] D [facility] MEAN CORPUSCULAR HGB 32.8 31 - 36 g/dL [facility] CONC - [facility] CENTER LAB MEAN CELL VOLUME - 90.3 77 - 100 fl [facility] MONO # - [facility] 0.58 0.3 - 0.9 [facility] 10e3/uL [place] [facility] MONO% - [facility] 10 0 - 12 % [facility] PLATELET COUNT 178 150 - 400 [facility] 10e3/ul [place] [facility] RED BLOOD COUNT - [facility] 5.26 4.3 - 5.7 [facility] D 10e6/ul [place] [facility] RED CELL DISTRI WIDTH 13.0 11.8 - 15.6 % [facility] D - [facility] WHITE BLOOD COUNT - 5.7 3.5 - 10.5 [facility] 10e3/ul [place] [facility] Specimen Performing Organization Address City/State/ZIP Code Phon e Number [facility] [address] [place] [address] [facility] documented in this encounter Visit Diagnoses Not on filedocumented in this encounter Care Teams Consular Officer Relationship Specialty Start Date End Date Unknown, Provider, PCP - General 09/29/17 documented as of this encounter
--- OUTSIDE RECORDS SUMMARY | 2022-05-20 07:42 | XMS_ITS | Encounter Summary ---
:1955 Demographics Home Phone Preferred Language Unknown Marital Status Unknown Cheondoism Affiliation Unknown Race Unknown Ethnic Group Unknown Author Organization [facility] Address [address] [place] [address] Care Team Providers Name Role Phone Unknown, Provider Primary Care Provider Encounter Details Date Type Department Care Team Description 01/05/2020 Lab Requisition [facility] Unknown, Provider, Pathology & Laboratory [facility] [address] [facility] [place], [place] [id number] Social History Tobacco Use Types Packs/Day Years Used Date Never Assessed Sex Assigned at Date Recorded Not on file documented as of this encounter Plan of Treatment Not on filedocumented as of this encounter Procedures Procedure Name Priority Date/Time Associated Comments Diagnosis LYME AB Routine 01/04/2020 11:15 Results for this EST procedure are i n the results section. ZZLYME IMMUNOBLOT Today 01/04/2020 11:15 Result s for this CONFIRMATION EST procedure are i n the results section. documented in this encounter Results LYME IMMUNOBLOT CONFIRMATION (01/04/2020 11:15 EST) [place] IGG ImmunoBlot Negative Negative [facility] Lyme IGG Bands p58 [facility] p41 LABORATORY SERVICES p39 p18 [place] IgM ImmunoBlot Negative Negative [facility] Lyme IGM Band(s) p23 [facility] Lyme Immunoblot See Comment [facility] Interpretation LABORATORY SERVICES Specimen Blood - Venous blood (substance) Narrative [facility] - 01/09/2020 15:03 EST Specific serologic response to B. burgdorferi infection is not detected. ??This may indicate lack of infection, lack of seroconversion or low /undetectable antibody levels to B. burgdorferi. ??If clinically indicated, a new serum specimen should be submitted in 7-14 days. CDC criteria require greater than or equ al to the presence of 5 bands for IgG or greater than or equal to 2 bands for IgM for the Immunoblot to be considered positive. Bands may be detected in patients without Lyme Disease. Patterns not meeti CDC criteria should be interpreted with caution. ??Per CDC guidelines, Immunoblot testing should only be performed on specimens that are positive or equivocal by Immunoassay. Performing only the Immu noblot increases the possibility of false positive results. Results should be considered positive only when both the Immunoassay and the Immunoblot are positive. Performing Organization Address City/State/ZIP Code Phon e Number [facility] [address] [place] [address] SERVICES (ABNORMAL) LYME AB (01/04/2020 11:15 EST) Pathologist Sig nature Lyme Ab Positive (A)Comment: Negative [facility] Lyme Immunoblot LABORATORY SERVICES confirmation added by reflex. Specimen Blood - Venous blood (substance) Performing Organization Address City/State/ZIP Code Phon e Number [facility] [address] [place] [address] SERVICES documented in this encounter Visit Diagnoses Not on filedocumented in this encounter Care Teams Transportation Director Relationship Specialty Start Date End Date Unknown, Provider, PCP - General 09/29/17 documented as of this encounter
[2022-05-20] MEDS: Pantoprazole 40 MG VIAL IVP ×2 (07:59→21:35)
[2022-05-20] MEDS: Normal Saline Flush 10 ML SYR IVP ×3 (07:59→23:01)
[2022-05-20 08:02] LABS: ETHANOL BLOOD < 3.0 mg/dL (<10)
[2022-05-20 11:15] LABS: HGB 8.4 g/dL (13.5-17.5)
--- NOTE | 2022-05-20 11:19 | W.ANESPRE ---
General Info Date of Service Date Performed: 05/20/22 Height: 5 ft 9 in Weight: 84.5 kg Body Mass Index (BMI): 27.5 Surgical Procedure: Operation Date: 05/20/22 11:05 Proposed Procedure Side Surgeon p Gastroscopy Tressa Regalado MD Meds Allergies and Home Medications Allergies Allergy/AdvReac Type Severity Reaction Status Date / Time No Known Allergies Allergy Unverified 05/20/22 04:22 Home Medication Medication Instructions Recorded torsemide 20 mg tablet 20 mg PO DAILY 03/02/19 metoprolol succinate 100 mg 100 mg PO BID 12/22/20 tablet,extended release 24 hr metoprolol succinate 50 mg 50 mg PO DAILY AM 12/22/20 tablet,extended release 24 hr sacubitril 49 mg-valsartan 51 mg 1 tab PO BID 12/22/20 tablet (Entresto) aspirin 81 mg chewable tablet 81 mg PO DAILY 03/24/21 cholecalciferol (vitamin D3) 50 50 mcg PO DAILY 03/24/21 mcg (2,000 unit) capsule (D3) esomeprazole magnesium 20 mg 20 mg PO BID 03/24/21 capsule,delayed release finasteride 5 mg tablet 5 mg PO DAILY 03/24/21 folic acid 1 mg tablet 1 mg PO DAILY 03/24/21 omega-3 fatty acids-vitamin E 1 cap PO BID 03/24/21 1,000 mg capsule tamsulosin 0.4 mg capsule 0.4 mg PO DAILY 03/24/21 vitamin B complex 1 tab PO DAILY 03/24/21 apixaban 2.5 mg tablet (Eliquis) 2.5 mg PO BID 05/20/22 Current Visit Medications: Current Medications Generic Name Dose Route Start Last Admin Trade Name Freq PRN Reason Stop Dose Admin Albuterol Sulfate 2.5 mg 05/20/22 05:45 Albuterol 2.5 Mg/3 Ml Inh Soln Vial UPD Q2H PRN PRN Dimethicone/Zinc Oxide 0 gm 05/20/22 05:45 05/20/22 08:00 Liseth Protect Cream 142 Gm Tube TP 1 applic PRN PRN Administration Sodium Chloride 500 mls @ 0 mls/hr 05/20/22 04:17 Saline 500ml Bag IV PRN PRN As Directed IV Miscellaneous Supplies 1 each 05/20/22 04:30 Iv Access IV DIRECTED BERTHA Ondansetron HCl 4 mg 05/20/22 05:55 Ondansetron 4 Mg/2 Ml Vial IVP Q4H PRN PRN Pantoprazole Sodium 40 mg 05/20/22 08:30 05/20/22 07:59 Pantoprazole 40 Mg Vial IVP 40 mg BID BERTHA Administration Sodium Chloride 0 ml 05/20/22 04:17 05/20/22 07:59 Normal Saline Flush 10 Ml Syr IVP 30 ml PRN PRN Administration PFSH Active Problems Active Problems: Problem Status Onset Code Hemorrhagic shock R57.8 Acute blood loss anemia D62 Platelet dysfunction due to aspirin D69.1, T39.015A Platelet dysfunction associated with uremia D69.1, N19 THA (acute kidney injury) N17.9 Acute upper gastrointestinal bleeding K92.2 Hypovolemia E86.1 Anticoagulated Z79.01 PAF (paroxysmal atrial fibrillation) 01/11/18 I48.0 Sensorineural hearing loss, bilateral 12/01/17 H90.3 Systolic heart failure, ACC/AHA stage C 01/11/18 I50.20 Advance directive on file Z78.9 DVT prophylaxis Hypertension I10 Psoas hematoma, right, secondary to anticoagulant therapy S30.1XXA History of tonsillectomy Z90.89 H/O mitral valve replacement H/O aortic valve replacement Z95.2 CHF (congestive heart failure) I50.9 CVA (cerebral vascular accident) I63.9 Aortic regurgitation I35.1 Cardiomyopathy I42.9 Atrial fibrillation I48.91 Code status needs review [id number] Medical History Medical History (Updated 05/20/22 @ 06:38 by Stefany Wood MD) Abnormal auditory perception (12/01/17) Acute cerebrovascular accident (CVA) Acute on chronic congestive heart failure Alcohol intoxication Altered mental status Aspiration pneumonia Atherosclerotic heart disease Bilateral claudication of lower limb Chronic hepatitis C virus infection Acutely diagnosed but question of chronic infection since with positive viral load presently Decreased hearing of both ears Erectile dysfunction Essential hypertension GERD (gastroesophageal reflux disease) Hypoxia Ischemic stroke Mixed hyperlipidemia Solitary pulmonary nodule Varicose veins of both lower extremities Tobacco Smoking/Tobacco Use Status: Never Alcohol Alcohol Intake: current Alcohol intake frequency: holidays/special occasions only Substance Use Substance use: Never Substance use type: does not use Vital Signs and Lab Results Vital Signs Most Recent Vital Signs in EMR: Most Recent Vital Signs Temp Pulse Resp BP Pulse Ox 37.4 C 126 H 18 91/68 L 98 05/20/22 08:58 05/20/22 10:45 05/20/22 10:45 05/20/22 10:45 05/20/22 10:45 Lab Results Result Diagrams: 05/20/22 10:55 05/20/22 04:30 Blood Type / Crossmatch: Patient ABO/Rh A Negative 05/20/22 Antibody Screen NEGATIVE 05/20/22 Crossmatch See Detail 05/20/22 Complete Blood Count: White Blood Count 6.82 10^3/uL (4.4-10.8) 05/20/22 04:30 Red Blood Count 2.86 10^6/uL (4.36-5.78) L 05/20/22 04:30 Hemoglobin 8.4 g/dL (13.5-17.5) L 05/20/22 10:55 Hematocrit 25.0 % (40.0-50.0) L 05/20/22 10:55 Platelet Count 146 10^3/uL (130-400) 05/20/22 04:30 Complete Metabolic Panel: Sodium Level 138 mmol/L (136-145) 05/20/22 04:30 Potassium Level 4.1 mmol/L (3.5-5.1) 05/20/22 04:30 Chloride Level 103 mmol/L (98-107) 05/20/22 04:30 Carbon Dioxide Level 22.3 mmol/L (21.0-32.0) 05/20/22 04:30 Blood Urea Nitrogen 92 mg/dL (7-18) H* 05/20/22 04:30 Creatinine 1.6 mg/dL (0.70-1.30) H 05/20/22 04:30 Estimated GFR/1.73 m2 43.07 (mL/min/1.73m2) 05/20/22 04:30 Magnesium Level 2.5 mg/dL (1.8-2.4) H 05/20/22 04:30 Calcium Level 8.2 mg/dL (8.5-10.1) L 05/20/22 04:30 Albumin 3.0 g/dL (3.4-5.0) L 05/20/22 04:30 Glucose Level 146 mg/dL (74-106) H 05/20/22 04:30 Liver Function Panel: Alanine Aminotransferase (ALT/SGPT) 19 U/L (16-63) 05/20/22 04:30 Aspartate Amino Transf (AST/SGOT) 15 U/L (15-37) 05/20/22 04:30 Coagulation Panel: INR International Normalized Ratio 1.1 (0.9-1.1) 05/20/22 04:30 Prothrombin Time 11.4 sec (9.3-11.0) H 05/20/22 04:30 Activated Partial Thromboplast Time 21.3 sec (21.0-27.5) 05/20/22 04:30 Fibrinogen Pending 05/20/22 05:56 Cardiac Panel: No Data to Display Arterial Blood Gas: No Data to Display Venous Blood Gas: No Data to Display Pancreas Panel: Lipase 94 U/L (73-393) 05/20/22 04:30 Thyroid Panel: No Data to Display Infectious Disease: Coronavirus (COVID-19)(PCR) Negative (Negative) 05/20/22 05:56 Coronavirus 2019 Source Nasal/Nares 05/20/22 05:56 Blood Cultures: No Data to Display Toxicology Panel: Ethyl Alcohol Level < 3.0 mg/dL (<10) 05/20/22 07:20 Anesthesia Assessment and Plan Anesthesia History Personal History: No History of Anesthesia Complications Family History: No Family History of Anesthesia Complications Exercise Tolerance Exercise Tolerance: Metabolic Equivalents>4 Pertinent Negatives Pertinent Negatives: No Major Cardiovascular Symptoms or Complaints (MAZE procedure, AVR, MVR, previous silent MA ) and No Major Pulmonary Symptoms or Complaints (Suspected/ undiagnosed MATTHEW) Cardiac & Pulmonary Exam Cardiac Exam: Normal S1/S2 Heart Sounds Pulmonary Exam: Clear Bilateral Breath Sounds Implantable Cardiac Device Does patient have a Pacemaker or an ICD?: No Airway Exam Known Difficult Airway: No Mallampati Class: 1 Mouth Opening: Normal (> 3cm) Thyromental Distance: Greater than 3 cm Neck Range of Motion: Full ROM Neck Circumference: Normal Teeth Condition: Normal Dentition and Removable Dentures/Plates Lower ASA Classification ASA Score: ASA 3 Emergency Case?: Yes NPO Status NPO Status: NPO Clears >2 hours, Solids >8 hours Anesthesia Plan Resuscitation Status: Full Code Anesthesia Technique: General Anesthesia Airway Planned: Endotracheal Tube Monitors Used: Standard Monitors
--- NOTE | 2022-05-20 12:19 | SCONE_ITS ---
Date of service: 05/20/22 Time of Service: 11:00 Assessment and Plan Assessment and plan (1) Acute upper gastrointestinal bleeding: Status: Acute Assessment and plan: Mr. Khan is a 67 year old male with melena and hematemesis over the last few days. He does have a history of alcoholism. He did drink this past weekend. Per his he also was taking TUMS for Heart Burn. His Hgb has been trending down. He is being typed and screened for 1 unit of blood. Discussed EGD with patient and his . If there is active bleeding I will try to stop it using clips, cautery or epinephrine. Risks, benefits and complications inlcuding stroke, [place] and were reviewed and they wished to proceed. EGD under General (2) Anticoagulated: Status: Acute (3) PAF (paroxysmal atrial fibrillation): Status: Chronic History of Present Illness Narrative: This is a 67-year-old male with a past medical history of cerebrovascular accident in 2016, as well as an 2020, with chronic left-sided weakness, is on Eliquis for stroke and paroxysmal A. fib, with aortic valve bioprosthetic replacement, Maze procedure, coronary artery disease, congestive heart failure, mitral valve replacement presents today for evaluation of diarrhea and vomiting.? Patient states that for the last 24 hours he has had multiple dark tarry stools, and over the last evening he has had multiple episodes of coffee-ground and dark emesis.? He has been drinking over this past weekend, but otherwise does not drink daily.? He did not take his Eliquis this evening.? He admits to mild abdominal achiness, but denies any chest pain or shortness of breath.? He does admit to weakness and fatigue.? He denies any spicy foods or tomato based products.? His notes that he has been taking TUMS over the last weak for heart burn. Hgb has been slowly trending down and he is tachycardic. Consults Consult date: 05/20/22 Requesting physician: Juan Antonio Rey Review of Systems Constitutional Constitutional: Reports fatigue, Denies fever(s), Denies headache(s), Denies night sweats and Denies weight loss Eyes Eyes: Denies change in vision ENT Ears, Nose, Mouth, and Throat: Denies dysphagia and Denies headache(s) Cardiovascular Cardiovascular: Denies chest pain, Denies chest pain at rest, Denies irregular heart rhythm, Denies palpitations and Denies dyspnea Respiratory Respiratory: Denies cough and Denies dyspnea Gastrointestinal Gastrointestinal: Reports as per HPI and Denies dysphagia Genitourinary Genitourinary: Denies hematuria, Denies oliguria, Denies urinary frequency, Denies urinary hesitancy and Denies urinary incontinence Musculoskeletal Musculoskeletal: Reports system reviewed and no additional complaints, except as documented Integumentary/Breasts Skin/Breast: Reports system reviewed and no additional complaints, except as documented Neurologic Neurologic: Reports system reviewed and no additional complaints, except as documented and Denies headache(s) Psychiatric Psychiatric: Reports system reviewed and no additional complaints, except as documented Endocrine Endocrine: Reports system reviewed and no additional complaints, except as d ocumented, Reports fatigue and Denies palpitations PFSH All Active Problems Hemorrhagic shock (Acute) Acute blood loss anemia (Acute) Platelet dysfunction due to aspirin (Acute) Platelet dysfunction associated with uremia (Acute) THA (acute kidney injury) (Acute) Acute upper gastrointestinal bleeding (Acute) Hypovolemia (Acute) Anticoagulated (Acute) PAF (paroxysmal atrial fibrillation) (Chronic 01/11/18) Sensorineural hearing loss, bilateral (Acute 12/01/17) Systolic heart failure, ACC/AHA stage C (Acute 01/11/18) Advance directive on file (Acute) DVT prophylaxis (Acute) Hypertension (Chronic) Psoas hematoma, right, secondary to anticoagulant therapy (Acute) History of tonsillectomy (Chronic) H/O mitral valve replacement (Acute) H/O aortic valve replacement (Acute) CHF (congestive heart failure) (Chronic) CVA (cerebral vascular accident) (Chronic) Aortic regurgitation (Acute) Cardiomyopathy (Acute) Atrial fibrillation (Chronic) Code status needs review (Acute) Medical History Abnormal auditory perception (12/01/17) Acute cerebrovascular accident (CVA) Acute on chronic congestive heart failure Alcohol intoxication Altered mental status Aspiration pneumonia Atherosclerotic heart disease Bilateral claudication of lower limb Chronic hepatitis C virus infection Acutely diagnosed but question of chronic infection since with positive viral load presently Decreased hearing of both ears Erectile dysfunction Essential hypertension GERD (gastroesophageal reflux disease) Hypoxia Ischemic stroke Mixed hyperlipidemia Solitary pulmonary nodule Varicose veins of both lower extremities Social History Smoking/Tobacco Use Status: Never Smoking risk assessment performed?: Yes Alcohol Intake: current Alcohol Intake frequency: holidays/special occasions only Drug use: Never Substance use type: does not use Number of Children: 3 Do you feel safe at home: Yes Do you feel safe in your relationship?: Yes Exam Const General: cooperative, comfortable and no acute distress Orientation: alert and oriented x3 HENMT Head: normocephalic and atraumatic Eyes Pupils: PERRL Resp Effort & Inspection: normal respiratory effort Auscultation: clear to auscultation bilaterally Cardio Rate: tachycardic Rhythm: regular rhythm Heart Sounds: no gallops, no murmurs and no rubs GI Inspection: normal to inspection and no edema Palpation: soft, no hepatosplenomegaly and nontender Auscultation: normal bowel sounds Results Last Vital Signs Temp 98.1 F 05/20/22 11:48 Pulse 125 H 05/20/22 11:48 Resp 18 05/20/22 11:48 BP 102/66 05/20/22 11:33 Pulse Ox 98 05/20/22 11:48 Labs Result diagrams: 05/20/22 10:55 05/20/22 04:30 Labs: Laboratory Results - last 24 hr 05/20/22 05/20/22 05/20/22 04:30 04:30 04:30 WBC 6.82 RBC 2.86 L Hgb 9.2 L Hct 27.6 L MCV 97 H MCH 32.2 MCHC 33.3 RDW 14.7 H Plt Count 146 MPV 10.7 Immature Gran % 0.4 Neutrophils % 84.1 Lymphocytes % 9.8 Monocytes % 5.4 Eosinophils % 0.0 Basophils % 0.3 Nucleated RBC % 0.0 Absolute Neutrophils 5.73 Absolute Lymphocytes 0.67 L Absolute Monocytes 0.37 Absolute Eosinophils 0.00 Absolute Basophils 0.02 PT INR APTT Sodium 138 Potassium 4.1 Chloride 103 Carbon Dioxide 22.3 Anion Gap 12.7 H BUN 92 H* Creatinine 1.6 H Estimated GFR/1.73 m2 43.07 Glucose 146 H Calcium 8.2 L Magnesium 2.5 H Total Bilirubin 0.6 AST 15 ALT 19 Alkaline Phosphatase 36 L Total Protein 6.2 L Albumin 3.0 L Lipase 94 Ethyl Alcohol COVID-19 Source SARS-CoV-2 (PCR) Patient ABO/Rh A Negative Antibody Screen NEGATIVE Crossmatch See Detail 05/20/22 05/20/22 05/20/22 04:30 05:56 07:20 WBC RBC Hgb 8.3 L Hct 24.8 L MCV MCH MCHC RDW Plt Count MPV Immature Gran % Neutrophils % Lymphocytes % Monocytes % Eosinophils % Basophils % Nucleated RBC % Absolute Neutrophils Absolute Lymphocytes Absolute Monocytes Absolute Eosinophils Absolute Basophils PT 11.4 H INR 1.1 APTT 21.3 Sodium Potassium Chloride Carbon Dioxide Anion Gap BUN Creatinine Estimated GFR/1.73 m2 Glucose Calcium Magnesium Total Bilirubin AST ALT Alkaline Phosphatase Total Protein Albumin Lipase Ethyl Alcohol COVID-19 Source Nasal/Nares SARS-CoV-2 (PCR) Negative Patient ABO/Rh Antibody Screen Crossmatch 05/20/22 05/20/22 07:20 10:55 WBC RBC Hgb 8.4 L Hct 25.0 L MCV MCH MCHC RDW Plt Count MPV Immature Gran % Neutrophils % Lymphocytes % Monocytes % Eosinophils % Basophils % Nucleated RBC % Absolute Neutrophils Absolute Lymphocytes Absolute Monocytes Absolute Eosinophils Absolute Basophils PT INR APTT Sodium Potassium Chloride Carbon Dioxide Anion Gap BUN Creatinine Estimated GFR/1.73 m2 Glucose Calcium Magnesium Total Bilirubin AST ALT Alkaline Phosphatase Total Protein Albumin Lipase Ethyl Alcohol < 3.0 COVID-19 Source SARS-CoV-2 (PCR) Patient ABO/Rh Antibody Screen Crossmatch
--- NOTE | 2022-05-20 12:30 | ENDO_ITS ---
Date of service: 05/20/22 Time of Service: 12:30 Endoscopy Report DATE OF PROCEDURE: 05/20/22 PRE-OP DIAGNOSIS: GI bleed POST-OP DIAGNOSIS: other (erosive gastritis, duodenitis and esophagitis, esophageal ulcer) PROCEDURE: EGD SURGEON: Tressa Regalado ANESTHESIA TYPE: General LMA/ETT ESTIMATED BLOOD LOSS: 0 PATHOLOGY: none sent COMPLICATIONS: None DISPOSITION: PACU INDICATIONS: Mr. Khan is a 67 year old male with melena and hematemesis over the last few days. He does have a history of alcoholism. He did drink this past weekend. Per his he also was taking TUMS for Heart Burn.? His Hgb has been trending down. He is being typed and screened for 1 unit of blood. Discussed EGD with patient and his .? If there is active bleeding I will try to stop it using clips, cautery or epinephrine.? Risks, benefits and complications inlcuding stroke, [place] and were reviewed and they wished to proceed. PROCEDURE DESCRIPTION: After informed consent was obtained the patient was take to theoperating room and placed in a supine position. Monitors were applied and a time out was done. The patients name, date of , procedure type, allergies to medications and metal in their body was reviewed. The patient was placed under general anesthesia and intubated without difficulty. Once the ET tube was secured, the gastroscope was advanced through the oropharynx which was grossly normal into the esophagus. The proximal and mid- esophagus were normal. In the distal esophagus there was old blood noted, as well as inflammation and a small ulcer. The scope was advanced into the stomach and through the pylorus into the 3rd portion of the duodenum. The 3rd and 2nd portion of the duodenum was noted to be normal. In the 1st portion there was moderate inflammation noted. I elected to not do any biopsies due to the patient GI bleed. The scope was retracted back into the stomach and erosive gastritis was noted in the antrum and body. The scope was retroflexed. The cardia and fundus were noted to be normal. There was no hiatal hernia noted. The scope was removed and the patient was woken up, extubated and taken back to PACU in stable condition. Follow up: 3 months in the office for repeat EGD. Upon discharge should continue on Protonix 40 mg BID and Carafate tid. Avoid alcohol.
--- NOTE | 2022-05-20 13:51 | PHA.REVIEW ---
Pharmacy Admission Review - Admission Clinical Review (Last Reviewed 05/20/22 @ 12:25 by Tressa Regalado MD) Hemorrhagic shock (Acute) Acute blood loss anemia (Acute) Platelet dysfunction due to aspirin (Acute) Platelet dysfunction associated with uremia (Acute) THA (acute kidney injury) (Acute) Acute upper gastrointestinal bleeding (Acute) Hypovolemia (Acute) Anticoagulated (Acute) H/O mitral valve replacement (Acute) H/O aortic valve replacement (Acute) No Known Allergies Allergy (Unverified 05/20/22 04:22) Resuscitation Status Full Code Height 5 ft 9 in Weight 84.5 kg - Renal Dosing Renal Dosing: BUN 92 mg/dL (7-18) H* 05/20/22 04:30 Creatinine 1.6 mg/dL (0.70-1.30) H 05/20/22 04:30 Medications needing adjustments: N/A (crcl = 43) - Anticoagulation Anticoagulation: Hgb 8.4 g/dL (13.5-17.5) L 05/20/22 10:55 Hct 25.0 % (40.0-50.0) L 05/20/22 10:55 Plt Count 146 10^3/uL (130-400) 05/20/22 04:30 INR 1.1 (0.9-1.1) 05/20/22 04:30 Creatinine 1.6 mg/dL (0.70-1.30) H 05/20/22 04:30 DVT Prophylaxis: Reviewed (DVT ppx held (GI bleed)) Therapeutic Anticoagulation: Reviewed (pt takes eliquis at home - on hold, received kcentra 2000 units last night. INR = 1.1 today) - Opiate Usage Evaluate Pain Scale/Pains Meds: N/A - Relevant Labs Sodium 138 mmol/L (136-145) 05/20/22 04:30 Potassium 4.1 mmol/L (3.5-5.1) 05/20/22 04:30 Chloride 103 mmol/L (98-107) 05/20/22 04:30 Magnesium 2.5 mg/dL (1.8-2.4) H 05/20/22 04:30 Electrolytes, C-Reactive P, ESR: Reviewed - DM Control DM Control: Glucose 146 mg/dL (74-106) H 05/20/22 04:30 Insulin Dosing: N/A - Heart Failure/[place] EF%, SHARA's, B-Blockers, Diuretics: Reviewed (takes metoprolol, entresto, torsemide at home - on hold (hypotension)) - BP Control BP Control: Blood Pressure [Left Arm] 93/66 Blood Pressure [Left Arm] 93/66 Blood Pressure 105/68 Blood Pressure 105/68 Blood Pressure 117/94 Blood Pressure 107/79 Blood Pressure 102/67 Blood Pressure 96/66 Blood Pressure 106/77 Blood Pressure 96/69 Blood Pressure 104/73 Blood Pressure 110/82 Blood Pressure 104/75 Blood Pressure 104/75 Blood Pressure 103/72 Blood Pressure 96/69 Blood Pressure 102/73 Blood Pressure 82/62 Blood Pressure 92/77 Blood Pressure 98/83 Blood Pressure 102/66 Blood Pressure 102/66 Blood Pressure 93/65 Blood Pressure 114/65 Blood Pressure 101/73 Blood Pressure 96/72 Blood Pressure 91/68 Blood Pressure 99/60 Blood Pressure 84/55 Blood Pressure 96/59 Blood Pressure 87/64 Blood Pressure 94/73 Blood Pressure 101/73 Blood Pressure 93/66 Blood Pressure 89/63 Blood Pressure 81/55 Blood Pressure 104/74 Blood Pressure 111/71 Blood Pressure 114/81 Blood Pressure 115/88 Blood Pressure 111/80 Blood Pressure 128/72 Blood Pressure 104/66 Blood Pressure 100/78 Blood Pressure 105/76 Blood Pressure 115/79 Blood Pressure 108/63 Blood Pressure 99/74 Blood Pressure 106/74 If elevated: N/A (hypotensive) - Qtc Review If Elevated: N/A - IV to PO Switch IV Medications: N/A - Home Meds Home Med List reviewed: Reviewed Relevent Home Meds Not ordered & why?: home meds on hold (hypotension, GI bleed) - Current meds Current Medication Order Review: Reviewed - Comments Comments/Follow Ups: pt had EGD today, ?restarting eliquis if bleeding has been controlled
[2022-05-20] MEDS: LORazepam 2 MG/ML VIAL IVP (14:29)
[2022-05-20 14:30] LABS: Platelet Function Analysis 143 secs (94-193)
[2022-05-20 14:36] LABS: Fibrinogen 158 mg/dL (171-384)
--- NOTE | 2022-05-20 15:23 | PDOC.CMIN ---
- If Service Date Differs Date of service: 05/20/22 Time of Service: 15:23 Care Management Initial Assess REASON FOR HOSPITALIZATION:: upper GI Bleed PAST MEDICAL HISTORY/PAST SURGICAL HISTORY:: All Active Problems (Updated 05/20/22 @ 06:38 by Stefany Wood MD). Hemorrhagic shock (Acute). Acute blood loss anemia (Acute). Platelet dysfunction due to aspirin (Acute). Platelet dysfunction associated with uremia (Acute). THA (acute kidney injury) (Acute). Acute upper gastrointestinal bleeding (Acute). Hypovolemia (Acute). Anticoagulated (Acute). PAF (paroxysmal atrial fibrillation) (Chronic 01/11/18). Sensorineural hearing loss, bilateral (Acute 12/01/17). Systolic heart failure, ACC/AHA stage C (Acute 01/11/18). Advance directive on file (Acute). DVT prophylaxis (Acute). Hypertension (Chronic). Psoas hematoma, right, secondary to anticoagulant therapy (Acute). History of tonsillectomy (Chronic). H/O mitral valve replacement (Acute). H/O aortic valve replacement (Acute). CHF (congestive heart failure) (Chronic). CVA (cerebral vascular accident) (Chronic). Aortic regurgitation (Acute). Cardiomyopathy (Acute). Atrial fibrillation (Chronic). Code status needs review (Acute). Medical History (Updated 05/20/22 @ 06:38 by Stefany Wood MD). Abnormal auditory perception (12/01/17). Acute cerebrovascular accident (CVA). Acute on chronic congestive heart failure. Alcohol intoxication. Altered mental status. Aspiration pneumonia. Atherosclerotic heart disease. Bilateral claudication of lower limb. Chronic hepatitis C virus infection. Acutely diagnosed but question of chronic infection since with positive viral load presently. Decreased hearing of both ears. Erectile dysfunction. Essential hypertension. GERD (gastroesophageal reflux disease). Hypoxia. Ischemic stroke. Mixed hyperlipidemia. Solitary pulmonary nodule. Varicose veins of both lower extremities PREVIOUS FUNCTIONAL STATUS/SOCIAL/FAMILY SUPPORTS:: Cong lives in a single family home in [place] with his partner Lachelle. Cong and Lachelle each have 2 children. Cong's children live [facility]. and Lachelle has one child in [place] and the other lives out of [facility]. 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 He is independent at baseline and receives no community services. CURRENT FUNCTIONAL STATUS:: Cong was sitting up in bed in the ICU visiting with Lachelle when CM met with him. He admitted that he is not feeling well today. His latest CIWA score was 15. He has tremors, nausea and his heart rate has been high all day. Cong had an EGD this morning. Per Lachelle, they were told that there is no active bleeding but that he must stop drinking alcohol. ADVANCE DIRECTIVES:: on file - Hodankasi Mariano is his [facility] Has patient been provided with info about the portal/API?: Yes Did the patient sign up for the portal?: No CODE STATUS:: Full Code INSURANCE COVERAGE / FINANCIAL ISSUES:: Medicare. [place] CURRENT HOME/COMMUNITY SERVICES/EQUIPMENT:: none PRIMARY CARE PHYSICIAN:: Pricila Geller POTENTIAL DISCHARGE NEEDS:: follow up with PCP and plan of care PATIENT/FAMILY EDUCATION NEEDS:: Review of discharge instructions, limitations, follow up plan, diet, Ask Me Three TRANSPORTATION:: via private vehicle with Lachelle PLAN:: Cong will likely be discharged home with no new services. he will follow up with his community providers and plan of care and trransport with his partner Lachelle. CM will continue to support Cong and assess for ongoing discharge concerns.
--- NOTE | 2022-05-20 15:48 | W.ANESPOSTOP ---
Postoperative Evaluation Date, Time and Location Date Performed: 05/20/22 Time Performed: 15:48 Patient Location: Intensive Care Unit Vital Signs Most Recent Imported Vital Signs: Most Recent Vital Signs Temp Pulse Resp BP Pulse Ox 37.6 C H 121 H 30 H 105/68 98 05/20/22 13:06 05/20/22 13:06 05/20/22 13:06 05/20/22 13:06 05/20/22 13:06 Pain Score Most Recent Pain Score: Most Recent Pain Score Pain Level 7 05/20/22 12:42 Assessment Mental Status: Arousable with meaningful communication Airway and Respiratory Function: Patent airway with normal (patient baseline) respiratory exam Cardiovascular Function: Hemodynamically Unstable (See Explanation) and Receiving care as an inpatient Hydration Status: Volume Depleted (See Note) Nausea & Vomiting: No Nausea or Vomiting Pain: Pt. Denies Any Pain Peripheral Nerve Block: Patient did not receive a nerve block Postoperative Comments:: in ICU, receiving blood.
[2022-05-20 17:29] LABS: HGB 9.6 g/dL (13.5-17.5)
[2022-05-20] MEDS: PHENobarbital 130 MG/ML VIAL 260 MG IVP (23:00)
[2022-05-21] VITALS (32 sets, daily range): BP systolic 90–123; BP diastolic 60–85; PULSE 80–125; RESP 11–28; TEMP 36.5–37.4; O2SAT 92–99
[2022-05-21] MEDS: PHENobarbital 130 MG/ML VIAL 260 MG IVP ×3 (04:02→18:45)
[2022-05-21] MEDS: Normal Saline Flush 10 ML SYR IVP ×4 (04:02→18:44)
[2022-05-21 06:58] LABS: HCT 28.9 % (40.0-50.0); HGB 9.4 g/dL (13.5-17.5); MCH 31.4 pg (27.0-33.0); MCHC 32.5 % (32.0-36.0); MCV 97 fL (80-95); MPV 10.5 fL (8.0-11.0); Platelet Count 113 10^3/uL (130-400); RBC 2.99 10^6/uL (4.36-5.78); RDW 15.5 % (11.8-14.1); RDW-SD 53.3 fL; WBC 4.89 10^3/uL (4.4-10.8)
[2022-05-21 07:21] LABS: Anion Gap 5.3 mmol/L (3-11); BUN 55 mg/dL (7-18); CO2 25.7 mmol/L (21.0-32.0); CREATININE 1.5 mg/dL (0.70-1.30); Calcium 7.8 mg/dL (8.5-10.1); Chloride 113 mmol/L (98-107); Glucose 116 mg/dL (74-106); Magnesium 2.7 mg/dL (1.8-2.4); Potassium 4.1 mmol/L (3.5-5.1); Sodium 144 mmol/L (136-145)
[2022-05-21] MEDS: Sucralfate 1 GM TAB PO ×4 (07:55→20:36)
[2022-05-21] MEDS: Folic Acid 1 MG TAB PO (07:55)
[2022-05-21] MEDS: Pantoprazole 40 MG VIAL IVP ×2 (07:56→20:36)
--- NOTE | 2022-05-21 11:13 | NUR.NOTE ---
Patient is sleeping.Nursing Note:
--- NOTE | 2022-05-21 11:14 | NUR.NOTE ---
Patient is sleeping quietly.Nursing Note:
--- NOTE | 2022-05-21 12:11 | PDOC.CMPRO ---
- If Service Date Differs Date of service: 05/21/22 Time of Service: 12:11 Care Management Progress Note S/O:Cong was sitting up in bed when CM met with him. His partner Lachelle was present but the two were not engaged in conversation. CM asked Cong if he was interested in having a Hospital Cook. He agreed and CM made the referral. His was teary during the visit but did not offer any conversation. When CM asked if she was Ok, she responded not really but did not elaborate. Cong is doing somewhat better with his withdrawal symptoms today. His CIWA scores were between 2 and 4 most of the day but a little after 5pm, it was 12 and he received a prn dose of phenobarbital. A: Cong is a 67 year old man admitted on 05/20/22 with UGI Bleed P: Cong will likely be discharged home with no new services. A referral was made for a Hospital Cook today and she came to see him late this afternoon.. He will follow up with his community providers and plan of care and transport with his partner Lachelle. CM will continue to support Cong and assess for ongoing discharge concerns.
--- NOTE | 2022-05-21 12:38 | NUR.NOTE ---
Oral report given to BEHZAD Haynes from Med/Surg. Patient is transferring to Med/Surg.Nursing Note:
--- NOTE | 2022-05-21 13:15 | NUR.NOTE ---
1618 Nursing Note: Patient transferred from ICU 222 to med-surg 227 via wheelchair. Patient belongings limited. Please see belongings list in interventions. Patient required two assist stand pivot transfer. See vital signs for further info. See shift assessment. Continue to monitor.
--- NOTE | 2022-05-21 13:42 | W.PM.PROGNOT ---
Date of Service Date of service: 05/21/22 Time of Service: 13:42 Assessment and Plan Assessment and plan (1) Acute upper gastrointestinal bleeding: Status: Acute Assessment and plan: Upper GI bleed Endoscopy findings of small distal esophageal ulcer w/o active bleeding. Diffuse gastritis. 1st portion of duodenum with inflammation. - Protonix 40mg IV bid - carafate - - no further IVF - if resuscitation needed he should receive blood - s/p Kcentra - s/p one time dose of DDAVP for platelet dysfunction -He was instructed to avoid Etoh and NSAIDs. (2) Hemorrhagic shock: Status: Acute Assessment and plan: Hemorrhagic shock class II with tachycardia and normal blood pressures. This equates to the blood loss of 750-1500cc of blood loss, which has been replaced now by fluids RBCs. (3) Anticoagulated: Status: Acute Assessment and plan: He is on Eliquis for A. fib; held in background of GI bleed. Consider restarting tomorrow if Hgb stable. (4) PAF (paroxysmal atrial fibrillation): Status: Chronic Assessment and plan: Will restart BB in AM Consider restarting Eliquis in AM HR now controlled. (5) CHF (congestive heart failure): Status: Chronic Assessment and plan: Echo in 2018 with EF of 35%; recent Echo at [facility] with improved EF. Resuscitated with fluids and blood. No appearance clinically of pulmonary edema. (6) THA (acute kidney injury): Status: Acute Assessment and plan: This seems most likely to be prerenal in the setting of hemorrhagic shock. He has already received fluids, so will simply monitor this with strict I/O's and labs. - s/p 2L IVF -s/p pRBCs - Shane for strict I/O - strict I/O's - Daily weights -Cr now 1.5. (7) Platelet dysfunction associated with uremia: Status: Acute Assessment and plan: His BUN is 92, in the setting of both an THA and a GIB. In addition he is on aspirin. It is highly unlikely that his has functional platelets at the moment, which certainly is worsening the bleeding. In the setting of hemorrhagic shock and this degree of likely platelet dysfunction I will give him DDAVP for platelet dysfunction and to reverse his antiplatelet therapy. I will also order a platelet functional assay. - PFA - DDAVP - 0.3mcg/kg - approx 25mcg one time (8) Platelet dysfunction due to aspirin: Status: Acute Assessment and plan: As above (9) CVA (cerebral vascular accident): Status: Chronic (10) H/O aortic valve replacement: Status: Acute (11) H/O mitral valve replacement: Status: Acute (12) Acute blood loss anemia: Status: Acute Assessment and plan: Upper GI bleed. See above. Hgb 9.4. Monitor. Subjective Subjective Patient reports: no new complaints, feels better and afebrile; denies nausea or vomiting Exam Narrative Exam Narrative: Gen: NAD, normal respiratory effort, well-nourished. Appears fatigued HENT: PERRL, Chest: No respiratory distress, normal appearance of chest, clear to auscultation bilaterally, no crackles or wheezes, normal inspiratory effort Heart: irreg irregno murmurs, rubs or gallops Abdomen: Non-distended, soft, non tender Extremities: No clubbing, edema, cyanosis, rashes Neuro: AAOx3 , non focal. Mildy slow responses. Psych: cooperative, appropriate mental affect Objective Last Vital Signs Temp 36.5 C 05/21/22 13:10 Pulse 81 05/21/22 13:10 Resp 23 05/21/22 13:10 BP 119/83 05/21/22 13:10 Pulse Ox 99 05/21/22 13:10 Laboratory Results - last 24 hr 05/20/22 05/20/22 05/20/22 04:30 10:55 10:55 WBC RBC Hgb Hct MCV MCH MCHC RDW Plt Count MPV Fibrinogen 158 L Plt Function Assay 143 Sodium Potassium Chloride Carbon Dioxide Anion Gap BUN Creatinine Estimated GFR/1.73 m2 Glucose Calcium Magnesium Crossmatch See Detail 05/20/22 05/20/22 05/20/22 17:15 17:53 23:53 WBC RBC Hgb 9.6 L Cancelled Cancelled Hct 29.0 L Cancelled Cancelled MCV MCH MCHC RDW Plt Count MPV Fibrinogen Plt Function Assay Sodium Potassium Chloride Carbon Dioxide Anion Gap BUN Creatinine Estimated GFR/1.73 m2 Glucose Calcium Magnesium Crossmatch 05/21/22 05/21/22 06:41 06:41 WBC 4.89 RBC 2.99 L Hgb 9.4 L Hct 28.9 L MCV 97 H MCH 31.4 MCHC 32.5 D RDW 15.5 H Plt Count 113 L MPV 10.5 Fibrinogen Plt Function Assay Sodium 144 Potassium 4.1 Chloride 113 H Carbon Dioxide 25.7 Anion Gap 5.3 BUN 55 H Creatinine 1.5 H Estimated GFR/1.73 m2 46.40 Glucose 116 H Calcium 7.8 L Magnesium 2.7 H Crossmatch PAWSS Have you Been Recently Intoxicated or Drunk Within the Last 30 days?: Yes Have you Ever Experienced Previous Episodes of Alcohol Withdrawal?: No Have you ever Experienced Withdrawal Seizures?: No Have you ever Experienced Delirium Tremens(DT)s?: No Have you ever undergone Alcohol Rehabilitation Treatment (i.e, inpt ot outpatient treatment programs)?: No Have you ever Experienced Blackouts?: No Have you ever Combined Alcohol with other Downers within the last 90 days?: No Have you ever Combined Alcohol with any other Substance of Abuse during the last 90 days?: No Positive Blood Alcohol level on Presentation? [PCS.BAL]: No Evidence of Increased Autonomic Activity (i.e. HR>120, tremor, sweating, agitation, nausea)?: No Result: 1
[2022-05-21] MEDS: Tamsulosin 0.4 MG CAPCR PO (14:22)
[2022-05-21] MEDS: Finasteride 5 MG TAB PO (14:22)
[2022-05-21] MEDS: Lidocaine 2% Jelly 11 ML SYR (15:17)
[2022-05-21] MEDS: Metoprolol CR 100 MG TABCR PO (20:36)
[2022-05-22] VITALS (11 sets, daily range): BP systolic 98–122; BP diastolic 67–78; PULSE 62–89; RESP 14–16; TEMP 36–36.7; O2SAT 96–99
[2022-05-22] MEDS: PHENobarbital 130 MG/ML VIAL 260 MG IVP (00:10)
[2022-05-22 06:26] LABS: HGB 8.3 g/dL (13.5-17.5)
[2022-05-22] MEDS: Pantoprazole 40 MG VIAL IVP ×2 (08:57→20:19)
[2022-05-22] MEDS: Normal Saline Flush 10 ML SYR IVP (08:57)
[2022-05-22] MEDS: Folic Acid 1 MG TAB PO (08:57)
[2022-05-22] MEDS: Metoprolol CR 100 MG TABCR PO ×2 (08:57→20:19)
[2022-05-22] MEDS: Finasteride 5 MG TAB PO (08:57)
[2022-05-22] MEDS: Sucralfate 1 GM TAB PO ×4 (08:57→21:32)
[2022-05-22] MEDS: Tamsulosin 0.4 MG CAPCR PO (08:57)
[2022-05-22] MEDS: Metoprolol CR 50 MG TABCR PO (08:57)
[2022-05-22] MEDS: Acetaminophen 325 MG TAB 650 MG PO ×3 (11:08→20:19)
[2022-05-22 13:58] LABS: HCT 27.7 % (40.0-50.0); HGB 9.3 g/dL (13.5-17.5)
[2022-05-22] MEDS: LORazepam 1 MG TAB PO (15:06)
[2022-05-22] MEDS: Gabapentin 300 MG CAP PO ×2 (15:06→20:19)
--- NOTE | 2022-05-22 15:23 | W.PM.PROGNOT ---
Date of Service Date of service: 05/22/22 Time of Service: 15:24 Assessment and Plan Assessment and plan (1) Acute upper gastrointestinal bleeding: Status: Acute Assessment and plan: Upper GI bleed Endoscopy findings of small distal esophageal ulcer w/o active bleeding. Diffuse gastritis. 1st portion of duodenum with inflammation. - Protonix 40mg IV bid - carafate - s/p Kcentra - s/p one time dose of DDAVP for platelet dysfunction -He was instructed to avoid Etoh and NSAIDs. -Hgb now 9.3. (2) Hemorrhagic shock: Status: Acute Assessment and plan: Hemorrhagic shock class II with tachycardia and normal blood pressures. This equates to the blood loss of 750-1500cc of blood loss, which has been replaced now by fluids RBCs. (3) Anticoagulated: Status: Acute Assessment and plan: He is on Eliquis for A. fib; held in background of GI bleed. Consider restarting tomorrow if Hgb stable. (4) PAF (paroxysmal atrial fibrillation): Status: Chronic Assessment and plan: Cont metoprolol. Still holding Eliquis but planning on discharging tomorrow and restarting. HR now controlled. (5) CHF (congestive heart failure): Status: Chronic Assessment and plan: Echo in 2018 with EF of 35%; recent Echo at [facility] with improved EF. Resuscitated with fluids and blood. No appearance clinically of pulmonary edema. (6) THA (acute kidney injury): Status: Acute Assessment and plan: This seems most likely to be prerenal in the setting of hemorrhagic shock. He has already received fluids, so will simply monitor this with strict I/O's and labs. - s/p 2L IVF -s/p pRBCs - Shane for strict I/O - strict I/O's - Daily weights -Cr now 1.5. (7) Platelet dysfunction associated with uremia: Status: Acute Assessment and plan: His BUN is 92, in the setting of both an THA and a GIB. In addition he is on aspirin. It is highly unlikely that his has functional platelets at the moment, which certainly is worsening the bleeding. In the setting of hemorrhagic shock and this degree of likely platelet dysfunction I will give him DDAVP for platelet dysfunction and to reverse his antiplatelet therapy. I will also order a platelet functional assay. - PFA (platelet function assay) normal. - DDAVP - 0.3mcg/kg - approx 25mcg one time dose given on admission. (8) CVA (cerebral vascular accident): Status: Chronic (9) H/O aortic valve replacement: Status: Acute (10) H/O mitral valve replacement: Status: Acute (11) Acute blood loss anemia: Status: Acute Assessment and plan: Upper GI bleed. See above. Hgb 9.4. Monitor. Subjective Subjective Patient reports: feels better, tolerating liquids well and afebrile; denies nausea, vomiting or shortness of breath Exam Narrative Exam Narrative: Gen: NAD, Sitting in recliner. Looks fatigued. HENT: sclera clear. MMM Chest: No respiratory distress, normal appearance of chest, clear to auscultation bilaterally, no crackles or wheezes, normal inspiratory effort Heart: irreg irregno murmurs, rubs or gallops Abdomen: Non-distended, soft, non tender Extremities: No clubbing, edema, cyanosis, rashes Neuro: AAOx3 , non focal. Mildy slow responses. Psych: cooperative, appropriate mental affect Objective Last Vital Signs Temp 36.5 C 05/22/22 11:03 Pulse 89 05/22/22 15:08 Resp 16 05/22/22 11:03 BP 112/76 05/22/22 11:03 Pulse Ox 98 05/22/22 11:03 Laboratory Results - last 24 hr 05/22/22 05/22/22 06:17 13:51 Hgb 8.3 L 9.3 L Hct 25.0 L 27.7 L PAWSS Have you Been Recently Intoxicated or Drunk Within the Last 30 days?: Yes Have you Ever Experienced Previous Episodes of Alcohol Withdrawal?: No Have you ever Experienced Withdrawal Seizures?: No Have you ever Experienced Delirium Tremens(DT)s?: No Have you ever undergone Alcohol Rehabilitation Treatment (i.e, inpt ot outpatient treatment programs)?: No Have you ever Experienced Blackouts?: No Have you ever Combined Alcohol with other Downers within the last 90 days?: No Have you ever Combined Alcohol with any other Substance of Abuse during the last 90 days?: No Positive Blood Alcohol level on Presentation? [PCS.BAL]: No Evidence of Increased Autonomic Activity (i.e. HR>120, tremor, sweating, agitation, nausea)?: No Result: 1
--- NOTE | 2022-05-22 15:31 | DSE_ITS ---
Date of service: 05/23/22 Time of Service: 08:43 DS: Diagnosis Discharge Diagnosis (1) Acute upper gastrointestinal bleeding: Status: Acute (2) Hemorrhagic shock: Status: Acute (3) Anticoagulated: Status: Acute (4) PAF (paroxysmal atrial fibrillation): Status: Chronic (5) CHF (congestive heart failure): Status: Chronic (6) THA (acute kidney injury): Status: Acute (7) Platelet dysfunction associated with uremia: Status: Acute (8) CVA (cerebral vascular accident): Status: Chronic (9) H/O aortic valve replacement: Status: Acute (10) H/O mitral valve replacement: Status: Acute (11) Acute blood loss anemia: Status: Acute Discharge Plan Disposition Patient Disposition: HOME Condition: Improving Discharge Details Reason For Visit: Upper GI Bleed, Etoh withdrawal Admit Date/Time: 05/20/22 05:45 Admit Provider: tSefany Wood Attending Provider: Stefany Wood Primary Care Provider: Pricila Geller [facility] Hospital Course Hospital Course: This is a 67 yo man who have alcohol use disorder with a recent admission for alcohol intoxication, who is on Eliquis in the setting of A. fib, CVA, Maze procedure, bioprosthetic aortic valve, and CHF (EF of 35%) who is being admitted to the ICU for upper GI bleed. In the last 24 hours he has had dark tarry stools as well as hematemesis. He last took is Eliquis the evening of 05/19/22. On arrival he was tachycardic with soft blood pressures, but not overtly hypotensive (which he was at his last visit). He was given IVF resuscitation, start on a Protonix drip as well as given sucralfate. I did recommend reversing his anticoagulation as Eliquis would be around likely for 72 hours. The ED has called surgery for consultation. IV protonix and carafate initiated. Class II hemorrhagic shock dianosed with tachycardia, but normal BP. He was initially rescusitated with fluids, then a unit of pRBCs transfused. Gen. Surgery consulted and an EGD was performed that showed a distal esophageal ulcer and a proximal duodenal ulcer. + diffuse gastritis. No active bleeding. He did withdraw from alcohol. After an initial lorazepam dose for anxiety a prn phenobarbitol protocol followed. His Eliquis was restarted on day of discharge. ASA to be held for another week. Strongly encouraged to void NSAIDS and Etoh. PCP follow up in 1-2 weeks Home Meds and New Rx's Prescriptions: New acetaminophen 325 mg Tablet 650 mg PO Q6H PRN PRNQty: 0 0RF melatonin 3 mg Tablet 3 mg PO HS Qty: 0 0RF gabapentin 300 mg Capsule 300 mg PO BID Qty: 60 0RF sucralfate 1 gram Tablet 1 g PO AC & HS Qty: 30 0RF Continued torsemide 20 mg tablet 20 mg PO DAILY Rx Instructions: 03/22/21 10 mg tamsulosin 0.4 mg capsule 0.4 mg PO DAILY vitamin B complex Tablet 1 tab PO DAILY folic acid 1 mg Tablet 1 mg PO DAILY finasteride 5 mg tablet 5 mg PO DAILY esomeprazole magnesium 20 mg capsule,delayed release(DR/EC) 20 mg PO BID omega-3 fatty acids-vitamin E 1,000 mg Capsule 1 cap PO BID cholecalciferol (vitamin D3) [D3-2000] 50 mcg (2,000 unit) Capsule 50 mcg PO DAILY Eliquis 2.5 mg tablet 2.5 mg PO BID metoprolol succinate 100 mg tablet extended release 24 hr 100 mg PO BID Label Comments: TAKE ONE TABLET BY MOUTH TWICE A DAY Rx Instructions: 12/22/20 150 mg qam and 100 mg hs metoprolol succinate 50 mg tablet extended release 24 hr 50 mg PO DAILY AM Label Comments: TAKE ONE TABLET BY MOUTH EVERY MORNING WITH 100MG TABLET Rx Instructions: 150 mg total in AM Entresto 49-51 mg tablet 1 tab PO BID Held aspirin 81 mg Tablet,Chewable 81 mg PO DAILY Hold Instructions: Resume on 05/30/22. Discharge Instructions Instructions: Alcohol Dependence (DC) Activity:: Activity as Tolerated Equipment/Supplies:: No Equipment Needed Diet:: Resume usual home diet Discharge Orders Discharge Orders: Discharge Order (Routine); Ordered 05/23/22 Ordered By: Juan Antonio Rey DS: Summary Time Spent with Patient providing and/or coordinating discharge services: Greater than 30 minutes Status at Discharge Functional status at discharge: independent ambulation Overall status at discharge: patient is progressing back to baseline Mental Status: mental status grossly normal Speech and Movement: speech clear Mood: congruent mood Affect: blunted Exam Narrative Exam Narrative: Gen: NAD, Sitting up in bed. Appears more rested. HENT: sclera clear. MMM Chest: No respiratory distress, normal appearance of chest, clear to auscultation bilaterally, no crackles or wheezes, normal inspiratory effort Heart: irreg irreg no murmurs Abdomen: Non-distended, soft, non tender Extremities: No edema, calf tenderness. Neuro: AAOx3 , non focal. Mildy slow responses. Psych: cooperative, appropriate mental affect Psych Mental Status: mental status grossly normal Speech and Movement: speech clear Mood: congruent mood Affect: blunted DS: Data Vitals/I&O Vitals and I&O: Vital Signs Temperature 36.5 C 05/22/22 11:03 Temperature Source Tympanic 05/22/22 11:03 Pulse 89 05/22/22 15:08 Pulse Rhythm Regular 05/22/22 09:49 Pulse 82 05/21/22 05:15 Respiratory Rate 16 05/22/22 11:03 Respiratory Effort Non-Labored 05/22/22 09:49 Respiratory Depth Normal 05/22/22 09:49 Respiratory Pattern Normal 05/22/22 09:49 Blood Pressure 112/76 05/22/22 11:03 Blood Pressure Mean 93 05/21/22 08:11 Blood Pressure Position Supine 05/21/22 08:11 Pulse Oximetry 98 05/22/22 11:03 Oxygen Delivery Method Room Air 05/22/22 11:03 Oxygen Flow Rate 0 05/22/22 11:03 Pain Level 3 05/22/22 11:43 Comment 05/22/22 11:03 Intake & Output 05/21/22 05/22/22 05/22/22 23:59 11:59 23:59 Intake Total 980 / 980 Output Total 725 / 1425 670 / 670 Balance -725 / -1185 310 / 310 Intake: Oral 980 / 980 Output: Urine 725 / 1425 670 / 670 Other: Urine Color Light Betty Yellow Urine Appearance Clear Clear Urine Odor None Data Completed and Pending Labs on day of discharge: Labs from last 24 hours 05/22/22 05/22/22 13:51 06:17 Hgb 9.3 L 8.3 L Hct 27.7 L 25.0 L PFSH All Active Problems Hemorrhagic shock (Acute) Acute blood loss anemia (Acute) Platelet dysfunction due to aspirin (Acute) Platelet dysfunction associated with uremia (Acute) THA (acute kidney injury) (Acute) Acute upper gastrointestinal bleeding (Acute) Hypovolemia (Acute) Anticoagulated (Acute) PAF (paroxysmal atrial fibrillation) (Chronic 01/11/18) Sensorineural hearing loss, bilateral (Acute 12/01/17) Systolic heart failure, ACC/AHA stage C (Acute 01/11/18) Advance directive on file (Acute) DVT prophylaxis (Acute) Hypertension (Chronic) Psoas hematoma, right, secondary to anticoagulant therapy (Acute) History of tonsillectomy (Chronic) H/O mitral valve replacement (Acute) H/O aortic valve replacement (Acute) CHF (congestive heart failure) (Chronic) CVA (cerebral vascular accident) (Chronic) Aortic regurgitation (Acute) Cardiomyopathy (Acute) Atrial fibrillation (Chronic) Code status needs review (Acute) Medical History Abnormal auditory perception (12/01/17) Acute cerebrovascular accident (CVA) Acute on chronic congestive heart failure Alcohol intoxication Altered mental status Aspiration pneumonia Atherosclerotic heart disease Bilateral claudication of lower limb Chronic hepatitis C virus infection Acutely diagnosed but question of chronic infection since with positive viral load presently Decreased hearing of both ears Erectile dysfunction Essential hypertension GERD (gastroesophageal reflux disease) Hypoxia Ischemic stroke Mixed hyperlipidemia Solitary pulmonary nodule Varicose veins of both lower extremities Social History Smoking/Tobacco Use Status: Never Smoking risk assessment performed?: Yes Alcohol Intake: current Alcohol Intake frequency: holidays/special occasions only Drug use: Never Substance use type: does not use Number of Children: 3 Do you feel safe at home: Yes Do you feel safe in your relationship?: Yes
[2022-05-22] MEDS: Melatonin 3 MG TAB PO ×2 (21:32)
[2022-05-23 02:59] VITALS: BP 122/74; PULSE 65; RESP 18; TEMP 36.7; O2SAT 98
[2022-05-23 07:23] VITALS: BP 126/87; PULSE 80; RESP 18; TEMP 37; O2SAT 97
[2022-05-23] MEDS: Pantoprazole 40 MG VIAL IVP (08:21)
[2022-05-23] MEDS: Normal Saline Flush 10 ML SYR IVP (08:21)
[2022-05-23] MEDS: Folic Acid 1 MG TAB PO (08:21)
[2022-05-23] MEDS: Finasteride 5 MG TAB PO (08:21)
[2022-05-23] MEDS: Tamsulosin 0.4 MG CAPCR PO (08:22)
[2022-05-23] MEDS: Metoprolol CR 50 MG TABCR PO (08:22)
[2022-05-23] MEDS: Gabapentin 300 MG CAP PO (08:22)
[2022-05-23] MEDS: Metoprolol CR 100 MG TABCR PO (08:22)
[2022-05-23] MEDS: Sucralfate 1 GM TAB PO ×2 (08:22→11:54)
[2022-05-23] MEDS: Apixaban 2.5 MG TAB PO (08:56)
--- NOTE | 2022-05-23 09:52 | CMDISCH_ITS ---
- If Service Date Differs Date of service: 05/23/22 Time of Service: 09:52 LACE Index Scoring Tool - Questions: Length of Stay (in days): 3 Acuity (Admit via E.D.?): Yes Comorbidities: Cerebrovascular Disease, PVD, Congestive Heart Failure, Liver or Renal Disease E.D. Visits: 1 - Answers: Total Score: 12 Risk of Readmission: High Risk Care Management Discharge Reason for Hospitalization: upper GI Bleed Discharge Plan: Cong will be discharged home with no new services.He has established with a [employer] who will follow him in the community. Cong will follow up with his community providers and plan of care and transport with his partner Lachelle. Patient/Family Education Needs: Review of discharge instructions, limitations, follow up plan, diet, Ask Me Three
== END 2022-05-23 12:21 | disposition home or self-care (01) | DRG 380 ==
LOC: ER 06:16 → ICU 07:34 → MS 05-21 12:42
PROVIDERS: Family Medicine; Surgery; Admitting Provider Student in an Organized Health Care Education/Training Program; Emergency Provider Student in an Organized Health Care Education/Training Program; PCP Nurse Practitioner Family; Visit Provider Student in an Organized Health Care Education/Training Program
PROC: 0DJ68ZZ Inspection of Stomach, Via Natural or Artificial Opening Endoscopic (ICD-10-PCS; CPT 43235; principal; 2022-05-20 11:00)
DX: K22.11 Ulcer of esophagus with bleeding (principal); R57.8 Other shock; D62 Acute posthemorrhagic anemia; N17.9 Acute kidney failure, unspecified; I11.0 Hypertensive heart disease with heart failure; I50.32 Chronic diastolic (congestive) heart failure; I42.9 Cardiomyopathy, unspecified; K29.81 Duodenitis with bleeding; K25.4 Chronic or unspecified gastric ulcer with hemorrhage; Z79.01 Long term (current) use of anticoagulants; Z95.3 Presence of xenogenic heart valve; I48.0 Paroxysmal atrial fibrillation; Z79.82 Long term (current) use of aspirin; Z86.73 Personal history of transient ischemic attack (TIA), and cerebral infarction without residual deficits; E86.1 Hypovolemia; H90.3 Sensorineural hearing loss, bilateral; M79.81 Nontraumatic hematoma of soft tissue; T45.515A Adverse effect of anticoagulants, initial encounter; D69.1 Qualitative platelet defects
CPT/HCPCS: 43235; 36415; 36430; 80048; 80053; 83690; 85027; 85384; 86850; 86900; 86901; 86920; 87635; 93005; 96361; 96365; 96366; 96367; 96368; 96375; 99223; 99291; 80320; 83735; 85014; 85018; 85025; 85576; 85610; 85730; 93010; 99232; J2060; J2270; J2370; J2405; J2560; J2597; P9016

== ENCOUNTER 2022-06-25 01:26 | Outpatient (CLI) | payer MEDICARE, SELFPAY ==
[2022-06-25 10:24] LABS: Abs Immature Grans 0.01 10^3/uL (0.0-0.06); Absolute Basophil Count 0.03 10^3/uL (0.0-0.2); Absolute Eosinophil Count 0.14 10^3/uL (0.0-0.7); Absolute Lymphocyte Count 1.09 10^3/uL (1.2-3.4); Absolute Monocyte Count 0.36 10^3/uL (0.1-0.8); Absolute Neutrophil Count 2.68 10^3/uL (1.2-6.7); Basophils % 0.7; Eosinophils % 3.2; HCT 36.7 % (40.0-50.0); HGB 11.9 g/dL (13.5-17.5); Immature Grans % 0.2; Lymphocytes % 25.3; MCH 30.3 pg (27.0-33.0); MCHC 32.4 % (32.0-36.0); MCV 93 fL (80-95); MPV 9.9 fL (8.0-11.0); Monocytes % 8.4; Neutrophils % 62.2; Platelet Count 291 10^3/uL (130-400); RBC 3.93 10^6/uL (4.36-5.78); RDW 13.9 % (11.8-14.1); RDW-SD 48.3 fL; WBC 4.31 10^3/uL (4.4-10.8)
[2022-06-25 11:12] LABS: Anion Gap 9.9 mmol/L (3-11); BUN 42 mg/dL (7-18); CO2 27.1 mmol/L (21.0-32.0); CREATININE 1.9 mg/dL (0.70-1.30); Calcium 9.4 mg/dL (8.5-10.1); Chloride 102 mmol/L (98-107); Estimated GFR 35.32 (mL/min/1.73m2); Glucose 103 mg/dL (74-106); NT-proBNP 773 pg/mL (<300); Potassium 3.7 mmol/L (3.5-5.1); Sodium 139 mmol/L (136-145)
== END 2022-06-25 01:27 | disposition home or self-care (01) ==
LOC: LBO 01:26
PROVIDERS: PCP Nurse Practitioner Family; Visit Provider Physician Assistant
DX: I50.22 Chronic systolic (congestive) heart failure (principal)
CPT/HCPCS: 36415; 80048; 83880; 85025

== ENCOUNTER 2022-07-05 02:39 | Outpatient (CLI) | payer MEDICARE, SELFPAY ==
[2022-07-05 15:27] LABS: Abs Immature Grans 0.01 10^3/uL (0.0-0.06); Absolute Basophil Count 0.03 10^3/uL (0.0-0.2); Absolute Eosinophil Count 0.12 10^3/uL (0.0-0.7); Absolute Lymphocyte Count 0.69 10^3/uL (1.2-3.4); Absolute Monocyte Count 0.38 10^3/uL (0.1-0.8); Basophils % 0.7; Eosinophils % 2.9; HCT 33.3 % (40.0-50.0); HGB 10.8 g/dL (13.5-17.5); Immature Grans % 0.2; Lymphocytes % 16.7; MCH 30.4 pg (27.0-33.0); MCHC 32.4 % (32.0-36.0); MCV 94 fL (80-95); MPV 10.5 fL (8.0-11.0); Monocytes % 9.2; Neutrophils % 70.3; Platelet Count 244 10^3/uL (130-400); RBC 3.55 10^6/uL (4.36-5.78); RDW 14.4 % (11.8-14.1); RDW-SD 49.7 fL; WBC 4.13 10^3/uL (4.4-10.8)
[2022-07-05 16:39] LABS: Anion Gap 8.5 mmol/L (3-11); BUN 38 mg/dL (7-18); CO2 27.5 mmol/L (21.0-32.0); CREATININE 2.2 mg/dL (0.70-1.30); Calcium 9.1 mg/dL (8.5-10.1); Chloride 103 mmol/L (98-107); Estimated GFR 29.83 (mL/min/1.73m2); Glucose 109 mg/dL (74-106); NT-proBNP 1151 pg/mL (<300); Potassium 4.7 mmol/L (3.5-5.1); Sodium 139 mmol/L (136-145)
== END 2022-07-05 02:40 | disposition home or self-care (01) ==
LOC: LBO 02:39
PROVIDERS: PCP Nurse Practitioner Family; Visit Provider Physician Assistant
DX: I50.22 Chronic systolic (congestive) heart failure (principal)
CPT/HCPCS: 36415; 80048; 83880; 85025

== ENCOUNTER 2022-07-22 05:15 | Outpatient (CLI) | payer MEDICARE, SELFPAY ==
[2022-07-22 17:06] LABS: Anion Gap 10.4 mmol/L (3-11); BUN 33 mg/dL (7-18); CO2 25.6 mmol/L (21.0-32.0); CREATININE 2.5 mg/dL (0.70-1.30); Calcium 9.3 mg/dL (8.5-10.1); Chloride 103 mmol/L (98-107); Estimated GFR 27.13 (mL/min/1.73m2); Glucose 115 mg/dL (74-106); Potassium 4.5 mmol/L (3.5-5.1); Sodium 139 mmol/L (136-145)
== END 2022-07-22 05:16 | disposition home or self-care (01) ==
LOC: LBO 05:16
PROVIDERS: PCP Nurse Practitioner Family; Visit Provider Physician Assistant
DX: I50.22 Chronic systolic (congestive) heart failure (principal)
CPT/HCPCS: 36415; 80048

== ENCOUNTER 2022-08-19 04:10 | Outpatient (CLI) | payer MEDICARE, SELFPAY ==
[2022-08-19 16:09] LABS: Anion Gap 8.8 mmol/L (3-11); BUN 24 mg/dL (7-18); CO2 25.2 mmol/L (21.0-32.0); Calcium 9.2 mg/dL (8.5-10.1); Chloride 106 mmol/L (98-107); Estimated GFR 35.46 (mL/min/1.73m2); Glucose 119 mg/dL (74-106); NT-proBNP 1176 pg/mL (<300); Sodium 140 mmol/L (136-145)
== END 2022-08-19 04:11 | disposition home or self-care (01) ==
LOC: LBO 04:10
PROVIDERS: PCP Nurse Practitioner Family; Visit Provider Physician Assistant
DX: I50.22 Chronic systolic (congestive) heart failure (principal); R79.89 Other specified abnormal findings of blood chemistry
CPT/HCPCS: 36415; 80048; 83880

== ENCOUNTER 2022-09-08 18:51 | Outpatient (REF) | payer MEDICARE, SELFPAY ==
[2022-09-08 15:04] LABS: Bilirubin Negative (Negative); Blood Trace-intact (Negative); Clarity Cloudy (Clear); Glucose 100 mg/dL (Negative); Ketones Negative (Negative); Leukocyte Esterase Large (Negative); Nitrite Negative (Negative); Specific Gravity 1.025 (1.005-1.025); Urobilinogen 0.2 EU/dL (Up TO 0.2); pH 6.5 (5-8)
[2022-09-08 15:11] LABS: RBC 0-2 HPF (0-2); WBC >50 HPF (0-5)
[2022-09-08 15:12] LABS: Bacteria Few HPF (Negative); C & S Indicated? Yes; Casts 0-2 Hyaline LPF (Negative); Crystals Negative HPF (Negative); Epithelial Cells Few HPF (Negative); Mucus Negative (Negative)
== END 2022-09-08 18:52 | disposition home or self-care (01) ==
LOC: NCHCN 18:51
PROVIDERS: PCP Nurse Practitioner Family; Visit Provider Family Medicine
DX: R39.9 Unspecified symptoms and signs involving the genitourinary system (principal)
CPT/HCPCS: 81003; 81015; 87086

== ENCOUNTER 2023-04-01 16:17 | Outpatient (REF) | payer MEDICARE, SELFPAY ==
[2023-04-01 14:41] LABS: Abs Immature Grans 0.02 10^3/uL (0.0-0.06); Absolute Basophil Count 0.04 10^3/uL (0.0-0.2); Absolute Eosinophil Count 0.19 10^3/uL (0.0-0.7); Absolute Lymphocyte Count 0.58 10^3/uL (1.2-3.4); Absolute Monocyte Count 0.76 10^3/uL (0.1-0.8); Absolute Neutrophil Count 6.12 10^3/uL (1.2-6.7); Basophils % 0.5; Eosinophils % 2.5; HCT 36.6 % (40.0-50.0); HGB 11.9 g/dL (13.5-17.5); Immature Grans % 0.3; Lymphocytes % 7.5; MCH 30.2 pg (27.0-33.0); MCHC 32.5 % (32.0-36.0); MCV 93 fL (80-95); MPV 10.9 fL (8.0-11.0); Monocytes % 9.9; Neutrophils % 79.3; Platelet Count 209 10^3/uL (130-400); RBC 3.94 10^6/uL (4.36-5.78); RDW 13.7 % (11.8-14.1); RDW-SD 46.9 fL; WBC 7.71 10^3/uL (4.4-10.8)
[2023-04-01 15:04] LABS: ALT 41 U/L (16-63); AST 31 U/L (15-37); Albumin 3.3 g/dL (3.4-5.0); Alkaline Phosphatase 61 U/L (46-116); Anion Gap 8.8 mmol/L (3-11); BUN 42 mg/dL (7-18); Bilirubin, Total 0.4 mg/dL (0.2-1.0); CO2 27.2 mmol/L (21.0-32.0); CREATININE 1.6 mg/dL (0.70-1.30); Calcium 9.2 mg/dL (8.5-10.1); Chloride 105 mmol/L (98-107); Cholesterol 141 mg/dL (<200); Estimated GFR 46.06 (mL/min/1.73m2); Glucose 105 mg/dL (74-106); HDL Cholesterol 52 mg/dL (40-60); Potassium 4.5 mmol/L (3.5-5.1); Sodium 141 mmol/L (136-145); Total Protein 7.3 g/dL (6.4-8.2)
[2023-04-01 15:10] LABS: Triglyceride < 25 mg/dL (<150)
[2023-04-01 19:33] LABS: Hemoglobin A1C 5.8 % (<5.7)
== END 2023-04-01 16:18 | disposition home or self-care (01) ==
LOC: NCHCN 16:17
PROVIDERS: PCP Nurse Practitioner Family; Visit Provider Nurse Practitioner Family
DX: I10 Essential (primary) hypertension (principal); I25.10 Atherosclerotic heart disease of native coronary artery without angina pectoris; D64.9 Anemia, unspecified; R73.09 Other abnormal glucose
CPT/HCPCS: 80053; 80061; 83036; 85025

== ENCOUNTER → 2023-11-28 22:21 | Outpatient (CLI) | payer MEDICARE, SELFPAY ==
--- NOTE | 2023-11-28 15:29 | DI.RAD_ITS ---
Exam(s) XR HIP RT COMPLETE AP PELVIS EXAM: XR HIP RT COMPLETE AP PELVIS CLINICAL HISTORY: Rt hip pain, M25.551. TECHNIQUE: 2D digital imaging was performed. Three images were obtained. AP pelvis, AP hip and late ral hip views were obtained. COMPARISON: No exams were available for comparison FINDINGS: BONES: There are findings of a right total hip replacement. No fracture or dislocation. JOINTS: The orthopedic hardware is in good position. No evidence of hardware loosening. Mild degene rative changes are seen in the lumbar spine. SOFT TISSUE: Surgical clips are seen in the right inguinal region. IMPRESSION: Right total hip replacement. DATA REPOSITORY: RADIATION DOSE DELIVERED:
== END ==
PROVIDERS: PCP Nurse Practitioner Family; Visit Provider Family Medicine
DX: M25.551 Pain in right hip (principal); Z98.890 Other specified postprocedural states; Z96.641 Presence of right artificial hip joint
CPT/HCPCS: 73502

== ENCOUNTER 2024-05-09 02:16 | Emergency (ER) | payer MEDICARE, SELFPAY ==
[2024-05-09] VITALS (23 sets, daily range): BP systolic 138–153; BP diastolic 85–122; PULSE 73–99; RESP 14–32; TEMP 36.8; O2SAT 89–99
--- NOTE | 2024-05-09 02:15 | DI.RAD_ITS ---
Exam(s) XR CHEST 1V IN DI DEPT EXAM: XR CHEST 1V IN DI DEPT CLINICAL HISTORY: SOB TECHNIQUE: 2D digital imaging was performed. COMPARISON: CR,XR XR PORTABLE CHEST AP from 05/16/2021 FINDINGS: LUNGS: Patchy bilateral infiltrates in the lower lobes. HEART: Markedly enlarged. Three valve prostheses. Pulmonary vascular prominence. AORTA: Mildly tortuous. BONES: Sternal wires.. Soft tissues: Unremarkable. IMPRESSION: Cardiomegaly and CHF. DATA REPOSITORY: RADIATION DOSE DELIVERED:
--- NOTE | 2024-05-09 02:15 | DI.RAD_ITS ---
Exam(s) XR PELVIS AP EXAM: XR PELVIS AP CLINICAL HISTORY: fell out of bed; stroke. TECHNIQUE: 2D digital imaging was performed. Single AP view. COMPARISON: No exams were available for comparison FINDINGS: Exam is limited by patient position. Patient was unable to cooperate with the exam. Also limited by overlying material. Contrast seen in bladder which appears intact. Right hip prosthesis is unchanged. Left hip joint space is maintained. No fracture is visible. SI joints and pubic symphysis are not widened. IMPRESSION: No acute abnormality. DATA REPOSITORY: RADIATION DOSE DELIVERED:
--- NOTE | 2024-05-09 02:15 | DI.CT_ITS ---
Exam(s) CT BRAIN NECK CTA EXAM: CT BRAIN NECK CTA CLINICAL HISTORY: left sided weakness. TECHNIQUE: Imaging Protocol: Axial CT angiography was performed with multi-slice acquisition and mu lti-planar and MIP reconstructions. CONTRAST MATERIAL: Intravenous: Omnipaque 350 Contrast volume:100 ml COMPARISON: CT CT BRAIN NECK CTA from 05/16/2021 CR,XR XR CHEST 1V IN DI DEPT from 05/09/2024 FINDINGS: Exam limited by motion. Suboptimal bolus timing. CT Head W/O and W contrast: Ventricles and Extra axial spaces: Normal in size and morphology for the patient's age. Hemorrhage: None. Cerebral parenchyma: No evidence of acute infarct or mass. Old infarcts in bilateral occipital lobes as well as right frontal parietal lobe. Midline shift: None. Brainstem/Cerebellum: No acute findings.. Calvarium: Normal. Visualized Paranasal sinuses/Mastoids: Clear. Soft Tissues: Unremarkable. Enhancement: Normal. CTA Brain W: Internal Carotid Arteries: Heavily calcified but patent. Middle Cerebral Arteries: Right: No aneurysm, occlusion. Proximal branches normal diameter. Decreased caliber of distal MCA branches compared to the contralateral side. This is in the area of the frontal parietal infarct and may be chronic. Left: No aneurysm, occlusion or significant stenosis. Anterior Cerebral Arteries: Right: No aneurysm, occlusion or significant stenosis. Left: No aneurysm, occlusion or significant stenosis. Posterior cerebral Arteries: Right: No aneurysm, occlusion or significant stenosis. Left: No aneurysm, occlusion or significant stenosis. Vertebral Arteries: Right: No aneurysm, occlusion or significant stenosis. Left: No aneurysm, occlusion or significant stenosis. Basilar Artery: No aneurysm, occlusion or significant stenosis. Superior ophthalmic arteries are prominent bilaterally. CTA Neck W: Common Carotid: Occasion of both common carotid bulbs. Right: No dissection, occlusion or significant stenosis. Left: No dissection, occlusion or significant stenosis. External Carotid: Proximal calcification bilaterally. Right: No dissection, occlusion or significant stenosis. Left: No dissection, occlusion or significant stenosis. Internal Carotid: Proximal calcification bilaterally. Right: No dissection, occlusion or significant stenosis. Left: No dissection, occlusion or significant stenosis. Vertebral Artery: Right: No dissection, occlusion or significant stenosis. Left: No dissection, occlusion or significant stenosis. Lung Apices: fluid noted in the right major fissure. Interlobular septal thickening consistent with pulmonary edema. Bones: No acute abnormality. Advanced degenerative change Soft Tissues: Normal. IMPRESSION: 1. CTA brain: Internal carotid arteries are heavily calcified but patent. Reduced caliber of distal right MCA branches. 2. Head CT: Old infarcts in the right frontal parietal and both occipital lobes. No acute infarct id entified. 3. CTA neck: Calcification at the common carotid bulb and proximal internal carotid arteries bilatera lly without significant stenosis. RADIATION DOSE DELIVERED: 2,339.37mGy.cm Total DLP DATA REPOSITORY: All CT scans at this facility are submitted to the National Radiology Data Registry (NRDR) Dose Index Registry (DIR) with the [employer] (ACR). RADIATION OPTIMIZATION: All CT scans at this facility use at least one of these dose optimization te chniques: automated exposure control; mA and/or kV adjustment per patient size (includes targeted exa ms where dose is matched to clinical indication); or iterative reconstruction.
--- NOTE | 2024-05-09 02:15 | RT.EKG_ITS ---
APPROVED REPORT Exam: Resting ECG Reason for Exam: Stroke? Patient Location: E HR:84 bpm ECG Measurements Heart Rate 84 AXIS VA 241 P 163 QRSd 185 QRS -48 QT 451 T 109 QTc 533 Conclusion Second degree AV block, Mobitz II...multiple P waves Multiple ventricular premature complexes...V complexes w/ short R-R intervls Left bundle branch block...QRSd>120, broad/notched R ST elevation secondary to IVCD...Multiple VCG criteria AF with LBBB PVCs Suggestion of ST depression v4 - v6 No STEMI
--- NOTE | 2024-05-09 02:19 | W.ED.GENAD ---
Discharge Plan Disposition Patient Disposition: Transfer-Acute Inpatient Care Specific Acute Inpt Facility: [facility] Condition: Stable Discharge Details Clinical Impression: Acute ischemic right MCA stroke Primary Care Provider: Unknown,Unknown ED Provider: Cong Velasco and New Rx's Prescriptions: No Action torsemide 20 mg tablet 20 mg PO DAILY Patient Comments: takes 10mg 05/09/24 Rx Instructions: 05/08/24 - taking 10 mg tamsulosin 0.4 mg capsule 0.4 mg PO DAILY aspirin 81 mg Tablet,Chewable 81 mg PO DAILY Hold Instructions: Resume on 05/30/22. vitamin B complex Tablet 1 tab PO DAILY folic acid 1 mg Tablet 1 mg PO DAILY finasteride 5 mg tablet 5 mg PO DAILY esomeprazole magnesium 20 mg capsule,delayed release(DR/EC) 20 mg PO BID omega-3 fatty acids-vitamin E 1,000 mg Capsule 1 cap PO BID cholecalciferol (vitamin D3) [D3-2000] 50 mcg (2,000 unit) Capsule 50 mcg PO DAILY Eliquis 2.5 mg tablet 2.5 mg PO BID acetaminophen 325 mg Tablet 650 mg PO Q6H PRN PRNQty: 0 0RF melatonin 3 mg Tablet 3 mg PO HS Qty: 0 0RF gabapentin 300 mg Capsule 300 mg PO BID Qty: 60 0RF sucralfate 1 gram Tablet 1 g PO AC & HS Qty: 30 0RF omeprazole 40 mg capsule,delayed release(DR/EC) 40 mg PO DAILY Qty: 30 0RF metoprolol succinate 100 mg tablet extended release 24 hr 100 mg PO BID Patient Comments: TAKE ONE TABLET BY MOUTH TWICE A DAY Rx Instructions: 12/22/20 150 mg qam and 100 mg hs metoprolol succinate 50 mg tablet extended release 24 hr 50 mg PO DAILY AM Patient Comments: TAKE ONE TABLET BY MOUTH EVERY MORNING WITH 100MG TABLET Rx Instructions: 150 mg total in AM Entresto 49-51 mg tablet 1 tab PO BID dextroamphetamine-amphetamine 30 mg capsule,extended release 24hr 30 mg PO DAILY Patient Comments: TAKE ONE CAPSULE BY MOUTH EVERY DAY IN THE MORNING HPI General Mode of arrival: EMS. Date/Time Provider Initiated Documentation: 05/09/24 02:19. Limitations to Documentation: other (Speech difficulty). Information obtained by: patient, EMS, RN notes reviewed and old records reviewed. HPI Narrative: Patient presenting to ED by ambulance after being found on the floor beside his bed by . Patient noted to have left hemiparesis per EMS. He has a prior history of stroke. He also has history of A-fib on Eliquis. Last seen normal just before bed around 11 to 11:30 PM. Has difficulty with speech but is able to slowly carry on conversation and follows commands. Denies having headache or neck pain, chest pain. Had been complaining of shortness of breath over the last day or 2. No reported fever or cough. Related Data Home Medications Medication Instructions Recorded Confirmed torsemide 20 mg tablet 20 mg PO DAILY 03/02/19 05/09/24 metoprolol succinate 100 mg 100 mg PO BID 12/22/20 05/09/24 tablet,extended release 24 hr metoprolol succinate 50 mg 50 mg PO DAILY AM 12/22/20 05/09/24 tablet,extended release 24 hr sacubitril 49 mg-valsartan 51 mg 1 tab PO BID 12/22/20 05/20/22 tablet (Entresto) aspirin 81 mg chewable tablet 81 mg PO DAILY 03/24/21 05/09/24 cholecalciferol (vitamin D3) 50 50 mcg PO DAILY 03/24/21 05/09/24 mcg (2,000 unit) capsule (D3-2000) esomeprazole magnesium 20 mg 20 mg PO BID 03/24/21 05/09/24 capsule,delayed release finasteride 5 mg tablet 5 mg PO DAILY 03/24/21 05/09/24 folic acid 1 mg tablet 1 mg PO DAILY 03/24/21 05/09/24 omega-3 fatty acids-vitamin E 1 cap PO BID 03/24/21 05/09/24 1,000 mg capsule tamsulosin 0.4 mg capsule 0.4 mg PO DAILY 03/24/21 05/09/24 vitamin B complex 1 tab PO DAILY 03/24/21 05/09/24 apixaban 2.5 mg tablet (Eliquis) 2.5 mg PO BID 05/20/22 05/09/24 acetaminophen 325 mg tablet 650 mg (2 x 325 mg) PO Q6H PRN PRN 05/23/22 05/09/24 #0 tabs gabapentin 300 mg capsule 300 mg PO BID #60 caps 05/23/22 05/09/24 melatonin 3 mg tablet 3 mg PO HS #0 tabs 05/23/22 05/09/24 omeprazole 40 mg capsule,delayed 40 mg PO DAILY #30 caps 05/23/22 05/09/24 release sucralfate 1 gram tablet 1 g PO AC & HS #30 tabs 05/23/22 05/09/24 dextroamphetamine-amphetamine ER 30 mg PO DAILY 05/09/24 05/09/24 30 mg 24hr capsule,extend release Previous Rx's Medication Instructions Recorded acetaminophen 325 mg tablet 650 mg (2 x 325 mg) PO Q6H PRN PRN 05/23/22 #0 tabs gabapentin 300 mg capsule 300 mg PO BID #60 caps 05/23/22 melatonin 3 mg tablet 3 mg PO HS #0 tabs 05/23/22 omeprazole 40 mg capsule,delayed 40 mg PO DAILY #30 caps 05/23/22 release sucralfate 1 gram tablet 1 g PO AC & HS #30 tabs 05/23/22 Allergies Allergy/AdvReac Type Severity Reaction Status Date / Time No Known Allergies Allergy Unverified 05/09/24 02:27 General SELVIN: 2 Review of Systems Unobtainable due to (Acuity) Exam Narrative Exam Narrative: Gen: WDWN elderly male in NAD. Vitals per triage. HENT: NC/AT. Normal face. Eyes: Pupils small and sluggish. Unable to look to left. Neck: Supple, trachea midline. Chest: Normal respirations. Lungs CTAB. CV: irr w/ murmur. Good radial pulses. Abd: S/ND/NT. Neuro: Awake, slow to respond but oriented times 3. Slurred speech. Left facial droop, unable to look left. Complete hemiparesis on the left. Ext: No C/C/E. Medical Decision Making Patient arrives to ED with apparent stroke versus bleed with last known well time somewhere between 11 PM and 11:30 PM. Patient is anticoagulated and has had prior stroke. He is not complaining of headache. He is slow to respond but is capable of responding and is oriented x 3. He has left neglect, unable to look left, complete left hemiparesis. EKG obtained on arrival is rate controlled A-fib with left bundle branch block and PVCs. Some suggestion of ST depression in the lateral precordial leads per my read. CT head stroke protocol ordered, CTA head and neck ordered, chest and pelvis x-ray. Saturations noted to be in the high 80s and is placed on oxygen. Does have a prior history of CHF. Is a little tachypneic but I do not appreciate any crackles. IV in place. Laboratory studies obtained. Teleneurology consult placed. Patient's laboratory studies with a white count of 5.8, hemoglobin 12.6, platelets 221. Coags are essentially normal. Baseline chronic kidney disease unchanged. Electrolytes normal. Troponin negative. 1 view pelvis per my read without acute fracture or dislocation. 1 view chest x-ray per my read with some increased interstitial markings similar to previous but may be a little worse inconsistent with some pulmonary edema. This likely explains his hypoxia. Received a call from radiology. Patient does not have a bleed but does have a clot in the M1 branch of the right MCA. Teleneurology consult has been placed and we are waiting for this to occur. I have placed a call to the transfer center to notify of potential transfer. Patient is not a candidate for tPA given that he is on Eliquis. Discussed with neurology, Dr. Zuluaga, at [facility]. Teleneurology consult not completed. Patient accepted to the ED at [facility] for neurology and interventional radiology evaluation. Patient and aware of plan and agreeable to same. He is maintaining saturations on nasal cannula oxygen. Will hold off on any acute management of CHF as he appears to be stable with good heart rate control, blood pressure. [facility] unfortunately not flying. Will transfer by [facility] [employer] [employer] level ambulance given his stable vitals and need for potential emergent procedure. Medical Records Medical records reviewed: Yes I reviewed the patient's medical records. Lab Data Lab results reviewed: Yes I reviewed the patient's lab results. Lab results narrative: See [facility] ECG Data Attestation: I personally reviewed and interpreted this ECG (s) as follows: Prior ECG tracings: available for review Interpretation: See EKG Quality:SDOH Health Related Social Needs: No Data to Display Critical Care Time Critical Care Time Critical Care Time: Yes Total Critical Care Time: 80 Attestation: Upon my evaluation, this patient had a high probability of imminent or life-threatening deterioration, which required my direct attention, intervention, and personal management. I have personally provided 80 minutes of critical care time exclusive of time spent on separately billable procedures. Time includes monitoring for potential decompensation, ordering of tests and medications, review of laboratory and radiology results, discussion with consultants and documentation . Interventions were performed as documented above in procedures. PFSH All Active Problems (Updated 05/09/24 @ 04:42 by Cong Velasco MD) Acute ischemic right MCA stroke (Acute) Hypoxia (Acute) Anticoagulated (Acute) Sensorineural hearing loss, bilateral (Acute 12/01/17) Systolic heart failure, ACC/AHA stage C (Acute 01/11/18) Advance directive on file (Acute) DVT prophylaxis (Acute) Hypertension (Chronic) Psoas hematoma, right, secondary to anticoagulant therapy (Acute) History of tonsillectomy (Chronic) Aortic regurgitation (Acute) Atrial fibrillation (Chronic) Code status needs review (Acute) Medical History Cardiomyopathy Atherosclerotic heart disease Essential hypertension Mixed hyperlipidemia GERD (gastroesophageal reflux disease) Solitary pulmonary nodule Decreased hearing of both ears Bilateral claudication of lower limb Erectile dysfunction Varicose veins of both lower extremities Abnormal auditory perception (12/01/17) PAF (paroxysmal atrial fibrillation) (01/11/18) Chronic hepatitis C virus infection Acutely diagnosed but question of chronic infection since with positive viral load presently CHF (congestive heart failure) CVA (cerebral vascular accident) Surgical History H/O mitral valve replacement H/O aortic valve replacement Social History Smoking/Tobacco Use Status: Never Smoking risk assessment performed?: Yes Alcohol Intake: current Alcohol Intake frequency: holidays/special occasions only Drug use: Never Substance use type: does not use Housing: house Number of Children: 3 Do you feel safe at home: Yes Do you feel safe in your relationship?: Yes
[2024-05-09] MEDS: Normal Saline 250 ML 500 ML IV (02:24)
[2024-05-09 02:41] LABS: Abs Immature Grans 0.01 10^3/uL (0.0-0.06); Absolute Basophil Count 0.04 10^3/uL (0.0-0.2); Absolute Eosinophil Count 0.21 10^3/uL (0.0-0.7); Absolute Lymphocyte Count 0.74 10^3/uL (1.2-3.4); Absolute Monocyte Count 0.65 10^3/uL (0.1-0.8); Absolute Neutrophil Count 4.17 10^3/uL (1.2-6.7); Basophils % 0.7 %; Eosinophils % 3.6 %; HCT 37.3 % (40.0-50.0); HGB 12.6 g/dL (13.5-17.5); Immature Grans % 0.2 %; Lymphocytes % 12.7 %; MCH 30.7 pg (27.0-33.0); MCHC 33.8 % (32.0-36.0); MCV 91 fL (80-95); MPV 10.2 fL (8.0-11.0); Monocytes % 11.2 %; Neutrophils % 71.6 %; Platelet Count 221 10^3/uL (130-400); RDW 14.6 % (11.8-14.1); RDW-SD 48.3 fL; WBC 5.82 10^3/uL (4.4-10.8)
[2024-05-09 02:54] LABS: INR 1.2 (0.9-1.1); PTT Activated 25.9 sec (23.6-32.8); Prothrombin Time 11.9 sec (9.1-11.1)
[2024-05-09 03:03] LABS: ALT 34 U/L (16-63); AST 29 U/L (15-37); Albumin 3.5 g/dL (3.4-5.0); Alkaline Phosphatase 56 U/L (46-116); Anion Gap 9.6 mmol/L (3-11); BUN 39 mg/dL (7-18); Bilirubin, Total 0.6 mg/dL (0.2-1.0); CO2 26.4 mmol/L (21.0-32.0); CREATININE 1.8 mg/dL (0.70-1.30); Chloride 105 mmol/L (98-107); Estimated GFR 39.75 (mL/min/1.73m2); Glucose 119 mg/dL (74-106); Magnesium 2.3 mg/dL (1.8-2.4); Potassium 4.2 mmol/L (3.5-5.1); Sodium 141 mmol/L (136-145); Troponin I < 50 ng/L (< or =60)
[2024-05-09] MEDS: Omnipaque 350 MG/ML 100 ML BTL IJ (03:28)
--- NOTE | 2024-05-09 03:54 | DI.VRAD_ITS ---
THIS REPORT CONTAINS FINDINGS THAT MAY BE CRITICAL TO PATIENT CARE. The findings were verbally communicated via telephone conference with MEDINA JORDAN at 3:47 AM EDT on 05/09/2024. The findings were acknowledged and understood. PROCEDURE INFORMATION: Exam: CTA Head Without And With Contrast, Arteriography Exam date and time: 05/09/2024 2:57 AM Age: 69 years old Clinical indication: Stroke-like symptoms; Other: Left sided weakness; Additional info: Patient was unable to follow verbal commands and was unable to hold still during the entirety of the exam TECHNIQUE: Imaging protocol: Computed tomographic angiography of the head without and with contrast. Exam focused on the arteries. 3D rendering (Not supervised by radiologist): MIP and/or 3D reconstructed images were created by the technologist. Radiation optimization: All CT scans at this facility use at least one of these dose optimization techniques: automated exposure control; mA and/or kV adjustment per patient size (includes targeted exams where dose is matched to clinical indication); or iterative reconstruction. Contrast material: OMNIPAQUE 350; Contrast volume: 100 ml; Contrast route: INTRAVENOUS (IV); Other technique: STROKE PROTOCOL was implemented. COMPARISON: CT BRAIN NECK CTA 05/16/2021 9:26 PM FINDINGS: ANTERIOR CIRCULATION: Right internal carotid artery: Intracranial segment is patent with no significant stenosis or occlusion. No aneurysm. Right middle cerebral artery: There is occlusion of the distal aspect of the right M1 segment. Right anterior cerebral artery: No occlusion or significant stenosis. No aneurysm. Left internal carotid artery: Intracranial segment is patent with no significant stenosis. No aneurysm. Left middle cerebral artery: No occlusion or significant stenosis. No aneurysm. Left anterior cerebral artery: No occlusion or significant stenosis. No aneurysm. POSTERIOR CIRCULATION: Right vertebral artery: No occlusion or significant stenosis. No aneurysm. Left vertebral artery: No occlusion or significant stenosis. No aneurysm. Basilar artery: No occlusion or significant stenosis. No aneurysm. Right posterior cerebral artery: No occlusion or significant stenosis. No aneurysm. Left posterior cerebral artery: No occlusion or significant stenosis. No aneurysm. HEAD: Brain: Ill-defined hypoattenuation in the right MCA territory, suggestive of acute/subacute ischemia. Periventricular and subcortical white matter change, suggestive of chronic microvascular ischemia. Areas of remote infarcts in both the right and left occipital lobes. No visualized hemorrhage. No midline shift. Cerebral ventricles: Normal. No ventriculomegaly. Bones: Unremarkable. No acute fracture. Paranasal sinuses: Visualized sinuses are normal. No fluid levels. Mastoid air cells: Visualized mastoids are normal. No mastoid effusion. Soft tissues: Unremarkable. IMPRESSION: 1. There is occlusion of the distal aspect of the right M1 segment. 2. Ill-defined hypoattenuation in the right MCA territory, suggestive of acute/subacute ischemia. ASSESSMENT: ASPECTS ([place] Stroke Program Early CT Score) is 7. PROCEDURE INFORMATION: Exam: CTA Neck Without And With Contrast Exam date and time: 05/09/2024 2:57 AM Age: 69 years old Clinical indication: Stroke-like symptoms; Other: Left sided weakness; Additional info: Patient was unable to follow verbal commands and was unable to hold still during the entirety of the exam TECHNIQUE: Imaging protocol: Computed tomographic angiography of the neck without and with contrast. Exam focused on the cervical segments of the vasculature. 3D rendering (Not supervised by radiologist): MIP and/or 3D reconstructed images were created by the technologist. Contrast material: OMNIPAQUE 350; Contrast volume: 100 ml; Contrast route: INTRAVENOUS (IV); COMPARISON: CT BRAIN NECK CTA 05/16/2021 9:26 PM FINDINGS: Limitations: The study is limited by contrast timing, and the arterial structures of the neck are suboptimally opacified. Right common carotid artery: Atherosclerotic plaque within the carotid bulb. No stenosis. No dissection or occlusion. Right internal carotid artery: No stenosis of the extracranial segment. No dissection or occlusion. Right external carotid artery: No occlusion or stenosis of the origin. Left common carotid artery: Atherosclerotic plaque within the carotid bulb. No stenosis. No dissection or occlusion. Left internal carotid artery: No stenosis of the extracranial segment. No dissection or occlusion. Left external carotid artery: No occlusion or stenosis of the origin. Right vertebral artery: No stenosis. No dissection or occlusion. Left vertebral artery: No stenosis. No dissection or occlusion. Soft tissues: Normal. No significant soft tissue swelling. Bones/joints: No acute fracture. IMPRESSION: No hemodynamically significant stenosis or occlusion is apparent. REFERENCES: NASCET CRITERIA. The degree of stenosis in the cervical segment of the internal carotid artery is based on NASCET criteria. Normal is no stenosis. Mild is less than 50% stenosis. Moderate is 50-69% stenosis. Severe is 70% to 99% stenosis. Total occlusion is no detectable patent lumen. Dictated and Authenticated by: Martinez Mayfield MD. Ordering:ANA Gar MD
--- NOTE | 2024-05-09 03:55 | DI.VRAD_ITS ---
PROCEDURE INFORMATION: Exam: XR Chest Exam date and time: 05/09/2024 3:17 AM Age: 69 years old Clinical indication: Shortness of breath; Additional info: Patient was unable to follow verbal commands and was unable to hold still during the entirety of the exam TECHNIQUE: Imaging protocol: Radiologic exam of the chest. Views: 1 view. COMPARISON: CR XR PORTABLE CHEST AP 05/16/2021 9:57 PM FINDINGS: Tubes, catheters and devices: Valvular replacement devices are present. Lungs: Increased perihilar ground-glass opacification, suggestive of CHF/pulmonary edema. Pleural spaces: Unremarkable. No pleural effusion. No pneumothorax. Heart/Mediastinum: The cardiac silhouette is enlarged. Bones/joints: Median sternotomy wires. IMPRESSION: Changes suggestive of CHF/pulmonary edema. Dictated and Authenticated by: Martinez Mayfield MD. Ordering:ANA Gar MD
--- NOTE | 2024-05-09 03:55 | DI.VRAD_ITS ---
PROCEDURE INFORMATION: Exam: XR Pelvis Exam date and time: 05/09/2024 3:15 AM Age: 69 years old Clinical indication: Injury or trauma; Fall; Blunt trauma (contusions or hematomas); Bilateral; Pelvic region; Prior surgery; Surgery date: 6+ months; Surgery type: Hip replacement; Additional info: Patient was unable to follow verbal commands and was unable to hold still during the entirety of the exam TECHNIQUE: Imaging protocol: Radiologic exam of the pelvis. Views: 1 or 2 view. COMPARISON: CR XR HIP RT COMPLETE AP PELVIS 11/28/2023 3:21 PM FINDINGS: Bones/joints: Changes of right hip arthroplasty. No visualized acute fracture or dislocation. Soft tissues: Unremarkable. IMPRESSION: No acute findings. Dictated and Authenticated by: Martinez Mayfield MD. Ordering:ANA Gar MD
[2024-05-09] MEDS: ACETAMINOPHEN 1,000 MG/100 ML BTL 400 MG IVPB (04:40)
[2024-05-09] MEDS: Ondansetron 4 MG/2 ML VIAL IVP (04:57)
== END 2024-05-09 05:05 | disposition short-term general hospital (02) ==
PROVIDERS: Emergency Provider Emergency Medicine
DX: I63.511 Cerebral infarction due to unspecified occlusion or stenosis of right middle cerebral artery (principal); I10 Essential (primary) hypertension; R29.810 Facial weakness; Z86.73 Personal history of transient ischemic attack (TIA), and cerebral infarction without residual deficits; R09.02 Hypoxemia; Z79.01 Long term (current) use of anticoagulants; W06.XXXA Fall from bed, initial encounter
CPT/HCPCS: 36416; 70496; 70498; 80053; 82962; 93005; 96361; 96374; 96375; 99291; 71045; 72170; 83735; 84484; 85025; 85610; 85730; 93010; J0131; J2405; J3490